=== PATIENT | female | born 1965 | race Caucasian/White ===

== ENCOUNTER 2017-12-07 16:10 | Observation (INO) | payer OTHER, SELFPAY ==
[2017-12-07] VITALS (11 sets, daily range): BP systolic 106–130; BP diastolic 57–78; PULSE 83–96; RESP 16–22; TEMP 36.8–37.1; O2SAT 93–98; BMI 39.2; BMI 39.3; BMI 38.8
--- NOTE | 2017-12-07 16:29 | RAD_ITS ---
STUDY: X-RAY CHEST REASON FOR EXAM: Female, 52 years old. Chest pain. TECHNIQUE: Portable frontal. COMPARISON: April 23, 2015 FINDINGS: There is no new focal consolidation. Normal size heart. Normal mediastinum and silke. Normal visualized pulmonary arteries. Normal visualized aortic arch and descending thoracic aorta. Normal visualized thoracic spine. Normal visualized ribs, clavicles, and shoulders. There is no demonstrated abnormality of the visualized soft tissue structures of the upper abdomen. RAD/Chest 1 View (Portable) IMPRESSION: No acute cardiopulmonary process. Electronically Signed: Sofiya Valladares MD at 17:14 EDT Tel , Service support ,
--- NOTE | 2017-12-07 16:29 | EKG12_ITS ---
Test Reason : CP Blood Pressure : / mmHG Vent. Rate : 094 BPM Atrial Rate : 094 BPM P-R Int : 136 ms QRS Dur : 090 ms QT Int : 342 ms P-R-T Axes : -01 011 100 degrees QTc Int : 427 ms Normal sinus rhythm T wave abnormality, consider lateral ischemia Abnormal ECG Confirmed by JUANA POTTER, LOC ([id number]), assistant production editor LUIS JACKSON ([id number]) on 12/08/2017 5:04:27 PM Referred By: Confirmed By:LOC ARIAS MD
--- NOTE | 2017-12-07 16:50 | ED.VISSUMM ---
- ER Visit Summary Date of Service: 12/07/17 Chief Complaint: Chest pain History of Present Illness: The patient is a 52 F with chest pain intermittent since yesterday. She has chest pain, shortness of breath, nausea. She denies diaphoresis. She states at worst it is 8 out of 10, currently 0 out of 10. She has a history of a previous bypass surgery 2016. History of high cholesterol. She takes aspirin daily. She is a smoker. Physical Examination: Vitals are stable. Patient is afebrile. Alert no acute distress. HEENT exam is unremarkable. Neck is supple. Lungs are clear and equal bilaterally. Heart is regular rate and rhythm. Abdomen is soft nontender nondistended. Extremities are unremarkable. Skin is warm and dry. No focal neurologic deficit. Remainder of exam is unremarkable. Emergency Department Course and Treatment: Patient is given aspirin. EKG is sinus rate of 94 with lateral T wave inversion. Chest x-ray shows no acute process. CBC, chemistries unremarkable other than glucose 144. Troponin is negative. She is pain-free in the emergency room. Will discuss with hospitalist for observation. Disposition: Observation Impression: Chest pain This note was generated with [employer] dictation software. It may contain incorrect words, spelling, and punctuation that were not noted in review of the chart prior to signing ED Disposition - Plan for ED Patient: Chief Complaint: Chest Pain Referrals: Viri Rowland MD [Primary Care Provider] -
[2017-12-07 17:10] LABS: Absolute Neutrophil Count 4.5 X10^3/uL (2.0-7.7); Basophil# 0.01 X10^3/uL; Basophil% 0.1 % (0-1); Eosinophil# 0.17 X10^3/uL; Eosinophils% 2.3 % (0-5); Hematocrit 41.6 % (37-47); Hemoglobin 13.4 g/dl (12.0-15.0); Lymphocyte % 30.5 % (19-41); Mean Corp Hgb Conc 32.2 g/gl (32-36); Mean Corpuscular Volume 93.1 fL (81-99); Mean Platelet Vol. 10.5 fl (6.2-12.0); Monocyte# 0.51 X10^3/uL; Monocyte% 6.8 % (0-10); Neutrophil # 4.53 X10^3/uL (2.7-7.7); Neutrophil % 60.2 % (47-70); Platelet Count 235 K/mm3 (150-450); RBC Distribution Width CV 14.6 % (11.6-14.6); RBC Distribution Width SD 49.5 fl (35.1-43.9); Red Blood Count 4.47 M/mm3 (4.2-5.4); White Blood Count 7.5 K/mm3 (4.4-11.0)
[2017-12-07] MEDS: Aspirin 325 MG Tablet PO (17:21)
[2017-12-07 17:26] LABS: Anion Gap 7 (5-15); BUN 10 mg/dL (7-18); BUN/Creat Ratio 11.3 RATIO (10-20); Calcium,Total 9.1 mg/dL (8.5-10.1); Chloride 107 mmol/L (98-107); Creatinine, Serum 0.88 mg/dL (0.55-1.02); EST Glomerular Filtration Rate 72 mL/min (>60); Est Glom Filt Rate - Afr Amer 87 mL/min (>60); Glucose 144 mg/dL (74-106); POSITIVE COUNT NO; POSITIVE DIFFERENTIAL NO; POSITIVE MORPHOLOGY NO; Sodium Level 140 mmol/L (136-145)
--- NOTE | 2017-12-07 18:11 | PCM.HP.STD ---
Problem List (1) Aortocoronary bypass status Status: Chronic Comment: CABG x5 - ARM[place] to :AD, SVG to 1stmarginal branch of the CX, SVG to distal CX, SVG to PDA, and SVG to posterolateral RCA 10/01/15 (2) Atherosclerotic heart disease of [place] coronary artery without angina pectoris Status: Chronic Comment: CABG x5 - [place] to :AD, SVG to 1stmarginal branch of the CX, SVG to distal CX, SVG to PDA, and SVG to posterolateral RCA 10/01/15 (3) Tobacco abuse Status: Chronic (4) Hyperlipidemia Status: Chronic History of Present Illness Date of Admission: 12/07/17 Chief Complaint: Chest pain. The patient is a 52 year old F with past medical history as mentioned above presented to the emergency room because of chest pain. Her symptoms started last night after she had an episode of vomiting, started having chest pain, located at the right upper chest, described as pressure like pain, 7 out of 10 in severity, intermittent since last night, radiates to her right shoulder, associated with mild shortness of breath and nausea and without aggravating or relieving factors. It has been intermittent since last night and she mentioned that this pain similar to the pain that she had 2 years ago that ended up with CABG x5. She mentioned that years ago, she had this chest pain on the right side, had stress test that was unremarkable. She continued to have this right upper chest pain for which cardiac CT was done and eventually, she underwent cardiac catheterization and found to have triple-vessel disease and she underwent CABG. Since that time, she has not been following up with cardiology and she has been only taking aspirin. In the emergency department, her vital signs were stable. Her routine blood work was unremarkable except for blood sugar of 144. Her EKG revealed normal sinus rhythm with septal T wave inversion in lateral chest leads, no acute ST elevation. Troponin is negative. Chest x-ray showed no acute findings. She is being admitted for chest pain for evaluation. Past Medical History Past Medical History (Chronic Problems): Chronic Problems (Last Updated 11/23/17 @ 17:19 by Farzana Wray) Aortocoronary bypass status (Chronic ~10/01/15) CABG x5 - [place] to :AD, SVG to 1stmarginal branch of the CX, SVG to distal CX, SVG to PDA, and SVG to posterolateral RCA 10/01/15 Atherosclerotic heart disease of [place] coronary artery without angina pectoris (Chronic) CABG x5 - [place] to :AD, SVG to 1stmarginal branch of the CX, SVG to distal CX, SVG to PDA, and SVG to posterolateral RCA 10/01/15 Tobacco abuse (Chronic) Hyperlipidemia (Chronic) History of [place] (myocardial infarction) (Chronic) Medical History: Medical History (Last Updated 11/23/17 @ 17:19 by Farzana Wray) Atherosclerotic heart disease of [place] coronary artery without angina pectoris (Chronic) I25.10 CABG x5 - [place] to :AD, SVG to 1stmarginal branch of the CX, SVG to distal CX, SVG to PDA, and SVG to posterolateral RCA 10/01/15 Tobacco abuse (Chronic) Z72.0 Hyperlipidemia (Chronic) E78.5 History of [place] (myocardial infarction) (Chronic) I25.2 Allergies Penicillins Allergy (Verified 12/07/17 16:11) Hives Home Medications: Ambulatory Orders Medication Instructions Recorded Aspirin [Aspirin, Baby] 81 mg PO QHS 01/05/17 Evolocumab [Repatha Sureclick] 140 mg SQ Q14D 12/07/17 Surgical History: Surgical History (Last Updated 11/23/17 @ 17:21 by Farzana Wray) Aortocoronary bypass status (Chronic) Onset Date: ~10/01/15 Z95.1 CABG x5 - [place] to :AD, SVG to 1stmarginal branch of the CX, SVG to distal CX, SVG to PDA, and SVG to posterolateral RCA 10/01/15 H/O arthroscopy of right knee Z98.890 H/O section Z98.891 History of laminectomy Z98.890 Surgical History: - - The patient is undergone lumbar laminectomy on 2 occasions in the past. section was performed ?2 in the past. She is undergone right knee arthroscopy on 3 occasions. 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 Patient's mother at age of 83 with a history of dementia and cerebrovascular accident. Paternal Family History: Family History (Last Updated 11/23/17 @ 17:22 by Farzana Wray) Father CAD (coronary artery disease) Mother CVA (cerebral vascular accident) History Items: - - not Pertinent to presenting complaint Review of Systems Constitutional: Denies: Anorexia, Chills, Fever, Weakness Eyes: Denies: Blurred vision, Double vision, Drainage, Redness HEENT: Denies: Difficulty Hearing, Ear Pain, Eye Pain, Nasal Congestion, Sore Throat Cardiovascular: Reports: Chest Pain, Chest Pressure. Denies: Edema, Heaviness, Light Headedness, Palpitations, Syncope Respiratory: Reports: Shortness of Breath, Shortness of breath upon exertion. Denies: Cough, Pleuritic Pain, Sputum production, Wheezing Gastrointestinal: Reports: Nausea, Vomiting. Denies: Abdominal Pain, Constipation, Diarrhea Genitourinary: Denies: Dysuria, Frequency, Hematuria Musculoskeletal: Denies: Arm Pain, Back Pain, Foot Pain Skin: Denies: Dryness, Rash Neurological: Denies: Balance problems, Headaches, Incoordination, Numbness Psychiatric: Denies: Anxiety, Depression Endocrine: Denies: Change in Body Habitus, Polydipsia VTE Information - Inpt Only VTE Present on Admission: No VTE Mechan Device Prophylaxis: None VTE Pharm Prophylaxis ordered?: Yes - Physical Exam General: Alert, Oriented x3, Cooperative, No apparent distress HEENT: Atraumatic, PERRLA, EOMI, Normocephalic Oral: Moist Mucosa, No Gingival or Mucosal Lesions/ Ulcerations Neck: Supple, No JVD, Negative Carotid Bruits, Trachea Midline, Thyroid Normal Size and Texture Lungs: Clear to auscultation, No rhonchi, No wheeze, No rales, Diminished Cardiovascular: Regular rate, Regular Rhythm, Normal S1, Normal S2, No murmurs, PMI Normal Abdomen: Bowel Sounds Present, Soft, Non Tender, Non-Distended, No Hepato-splenomegaly Extremities: No clubbing, No cyanosis, No edema Skin: No rashes, No breakdown Lymphatic: No Cervical, Supraclavicular, or Inguinal Adenopathy Neurological: Cranial nerves II-XII grossly intact, Motor Exam 5/5 strength throughout Psych/Mental Status: Normal Affect, Appropriate, Alert and oriented to time, place, person, mood and affect Vital Signs Temp Pulse Resp BP Pulse Ox 98.5 F 91 22 H 124/78 H 95 12/07/17 16:11 12/07/17 18:07 12/07/17 18:07 12/07/17 18:07 12/07/17 18:07 Oxygen Flow Rate (L/min) 2 Oxygen Delivery Method Nasal Cannula Weight: 228 lb 13.437 oz Body Mass Index (BMI) 39.2 Laboratory Tests Past 24 Hrs 12/07/17 12/07/17 16:25 16:25 WBC 7.5 RBC 4.47 Hgb 13.4 Hct 41.6 MCV 93.1 MCH 30.0 MCHC 32.2 RDW 14.6 RDW Differential 49.5 H Plt Count 235 MPV 10.5 Immature Gran % (Auto) 0.100 Neut % (Auto) 60.2 Lymph % (Auto) 30.5 [place] % (Auto) 6.8 Eos % (Auto) 2.3 Baso % (Auto) 0.1 Absolute Neuts (auto) 4.5 Absolute Lymphs (auto) 2.30 Total Counted Not Reportable Sodium 140 Potassium 4.0 Chloride 107 Carbon Dioxide 26.0 Anion Gap 7 BUN 10 Creatinine 0.88 Est GFR (MDRD) Af Amer 87 Est GFR (MDRD) Non-Af 72 BUN/Creatinine Ratio 11.3 Glucose 144 H Calcium 9.1 Troponin I < 0.015 Clinical Impression(s) from Imaging Studies Chest X-Ray 12/07/17 16:29 IMPRESSION: No acute cardiopulmonary process. Electronically Signed: Sofiya Valladares MD at 17:14 EDT Tel , Service support , Assessment/Plan This is a 50 years old female patient presented to the ER because of chest pain and she is being admitted for evaluation. #1 chest pain: Atypical. Risk factors are history of CAD status post CABG, hyperlipidemia and smoking. She had a clinical presentation for multivessel CAD back in 2016 and ended up with CABG ?5. At that time, she had similar right sided upper chest pain. At this time, EKG revealed inverted T-wave in lateral chest leads, no acute ST elevation. Troponin is negative. Chest x-ray showed no acute findings. Patient has been taking only aspirin, but not following up with cardiology. Plan: Admit to PCU for observation, cardiac monitoring, serial cardiac enzymes, repeat EKG tomorrow morning, continue aspirin, start metoprolol and lisinopril, start Lipitor, cardiology consult, fasting lipid profile. #2 CAD status post CABG: This was back in 2016, has been only on aspirin. She is not following up with cardiology. Plan as above to start beta-blockers, RIMMA inhibitors, statins, fasting lipid profile, cardiology consult. #3 hyperlipidemia: She has been on Evolocumab injections every 2 weeks. Plan to start him on Lipitor, check lipid profile in the morning. #4 tobacco abuse. #5 DVT prophylaxis: Subcu Lovenox. This note was generated with [employer]r dictation software. It may contain incorrect words, spelling, and punctuation that were not noted in checking the note before signing. Code Visit OBSV E&M: 74204 Initial observation care L3
--- NOTE | 2017-12-07 18:18 | HP.PCM_ITS ---
Problem List (1) Aortocoronary bypass status Status: Chronic Comment: CABG x5 - [place] to :AD, SVG to 1stmarginal branch of the CX, SVG to distal CX, SVG to PDA, and SVG to posterolateral RCA 10/01/15 (2) Atherosclerotic heart disease of [place] coronary artery without angina pectoris Status: Chronic Comment: CABG x5 - [place] to :AD, SVG to 1stmarginal branch of the CX, SVG to distal CX, SVG to PDA, and SVG to posterolateral RCA 10/01/15 (3) Tobacco abuse Status: Chronic (4) Hyperlipidemia Status: Chronic History of Present Illness Date of Admission: 12/07/17 Chief Complaint: Chest pain. The patient is a 52 year old F with past medical history as mentioned above presented to the emergency room because of chest pain. Her symptoms started last night after she had an episode of vomiting, started having chest pain, located at the right upper chest, described as pressure like pain, 7 out of 10 in severity, intermittent since last night, radiates to her right shoulder, associated with mild shortness of breath and nausea and without aggravating or relieving factors. It has been intermittent since last night and she mentioned that this pain similar to the pain that she had 2 years ago that ended up with CABG x5. She mentioned that years ago, she had this chest pain on the right side, had stress test that was unremarkable. She continued to have this right upper chest pain for which cardiac CT was done and eventually, she underwent cardiac catheterization and found to have triple-vessel disease and she underwent CABG. Since that time, she has not been following up with cardiology and she has been only taking aspirin. In the emergency department, her vital signs were stable. Her routine blood work was unremarkable except for blood sugar of 144. Her EKG revealed normal sinus rhythm with septal T wave inversion in lateral chest leads, no acute ST elevation. Troponin is negative. Chest x-ray showed no acute findings. She is being admitted for chest pain for evaluation. Past Medical History Past Medical History (Chronic Problems): Chronic Problems (Last Updated 11/23/17 @ 17:19 by Farzana Wray) Aortocoronary bypass status (Chronic ~10/01/15) CABG x5 - [place] to :AD, SVG to 1stmarginal branch of the CX, SVG to distal CX, SVG to PDA, and SVG to posterolateral RCA 10/01/15 Atherosclerotic heart disease of [place] coronary artery without angina pectoris (Chronic) CABG x5 - ARM[place] to :AD, SVG to 1stmarginal branch of the CX, SVG to distal CX, SVG to PDA, and SVG to posterolateral RCA 10/01/15 Tobacco abuse (Chronic) Hyperlipidemia (Chronic) History of [place] (myocardial infarction) (Chronic) Medical History: Medical History (Last Updated 11/23/17 @ 17:19 by Farzana Wray) Atherosclerotic heart disease of [place] coronary artery without angina pectoris (Chronic) I25.10 CABG x5 - [place] to :AD, SVG to 1stmarginal branch of the CX, SVG to distal CX, SVG to PDA, and SVG to posterolateral RCA 10/01/15 Tobacco abuse (Chronic) Z72.0 Hyperlipidemia (Chronic) E78.5 History of [place] (myocardial infarction) (Chronic) I25.2 Allergies Penicillins Allergy (Verified 12/07/17 16:11) Hives Home Medications: Ambulatory Orders Medication Instructions Recorded Aspirin [Aspirin, Baby] 81 mg PO QHS 01/05/17 Evolocumab [Repatha Sureclick] 140 mg SQ Q14D 12/07/17 Surgical History: Surgical History (Last Updated 11/23/17 @ 17:21 by Farzana Wray) Aortocoronary bypass status (Chronic) Onset Date: ~10/01/15 Z95.1 CABG x5 - [place] to :AD, SVG to 1stmarginal branch of the CX, SVG to distal CX, SVG to PDA, and SVG to posterolateral RCA 10/01/15 H/O arthroscopy of right knee Z98.890 H/O section Z98.891 History of laminectomy Z98.890 Surgical History: - - The patient is undergone lumbar laminectomy on 2 occasions in the past. section was performed ?2 in the past. She is undergone right knee arthroscopy on 3 occasions. 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 Patient's mother at age of 83 with a history of dementia and cerebrovascular accident. Paternal Family History: Family History (Last Updated 11/23/17 @ 17:22 by Farzana Wray) Father CAD (coronary artery disease) Mother CVA (cerebral vascular accident) History Items: - - not Pertinent to presenting complaint Review of Systems Constitutional: Denies: Anorexia, Chills, Fever, Weakness Eyes: Denies: Blurred vision, Double vision, Drainage, Redness HEENT: Denies: Difficulty Hearing, Ear Pain, Eye Pain, Nasal Congestion, Sore Throat Cardiovascular: Reports: Chest Pain, Chest Pressure. Denies: Edema, Heaviness, Light Headedness, Palpitations, Syncope Respiratory: Reports: Shortness of Breath, Shortness of breath upon exertion. Denies: Cough, Pleuritic Pain, Sputum production, Wheezing Gastrointestinal: Reports: Nausea, Vomiting. Denies: Abdominal Pain, Constipation, Diarrhea Genitourinary: Denies: Dysuria, Frequency, Hematuria Musculoskeletal: Denies: Arm Pain, Back Pain, Foot Pain Skin: Denies: Dryness, Rash Neurological: Denies: Balance problems, Headaches, Incoordination, Numbness Psychiatric: Denies: Anxiety, Depression Endocrine: Denies: Change in Body Habitus, Polydipsia VTE Information - Inpt Only VTE Present on Admission: No VTE Mechan Device Prophylaxis: None VTE Pharm Prophylaxis ordered?: Yes - Physical Exam General: Alert, Oriented x3, Cooperative, No apparent distress HEENT: Atraumatic, PERRLA, EOMI, Normocephalic Oral: Moist Mucosa, No Gingival or Mucosal Lesions/ Ulcerations Neck: Supple, No JVD, Negative Carotid Bruits, Trachea Midline, Thyroid Normal Size and Texture Lungs: Clear to auscultation, No rhonchi, No wheeze, No rales, Diminished Cardiovascular: Regular rate, Regular Rhythm, Normal S1, Normal S2, No murmurs, PMI Normal Abdomen: Bowel Sounds Present, Soft, Non Tender, Non-Distended, No Hepato- splenomegaly Extremities: No clubbing, No cyanosis, No edema Skin: No rashes, No breakdown Lymphatic: No Cervical, Supraclavicular, or Inguinal Adenopathy Neurological: Cranial nerves II-XII grossly intact, Motor Exam 5/5 strength throughout Psych/Mental Status: Normal Affect, Appropriate, Alert and oriented to time, place, person, mood and affect Vital Signs Temp Pulse Resp BP Pulse Ox 98.5 F 91 22 H 124/78 H 95 12/07/17 16:11 12/07/17 18:07 12/07/17 18:07 12/07/17 18:07 12/07/17 18:07 Oxygen Flow Rate (L/min) 2 Oxygen Delivery Method Nasal Cannula Weight: 228 lb 13.437 oz Body Mass Index (BMI) 39.2 Laboratory Tests Past 24 Hrs 12/07/17 12/07/17 16:25 16:25 WBC 7.5 RBC 4.47 Hgb 13.4 Hct 41.6 MCV 93.1 MCH 30.0 MCHC 32.2 RDW 14.6 RDW Differential 49.5 H Plt Count 235 MPV 10.5 Immature Gran % (Auto) 0.100 Neut % (Auto) 60.2 Lymph % (Auto) 30.5 [place] % (Auto) 6.8 Eos % (Auto) 2.3 Baso % (Auto) 0.1 Absolute Neuts (auto) 4.5 Absolute Lymphs (auto) 2.30 Total Counted Not Reportable Sodium 140 Potassium 4.0 Chloride 107 Carbon Dioxide 26.0 Anion Gap 7 BUN 10 Creatinine 0.88 Est GFR (MDRD) Af Amer 87 Est GFR (MDRD) Non-Af 72 BUN/Creatinine Ratio 11.3 Glucose 144 H Calcium 9.1 Troponin I < 0.015 Clinical Impression(s) from Imaging Studies Chest X-Ray 12/07/17 16:29 IMPRESSION: No acute cardiopulmonary process. Electronically Signed: Sofiya Valladares MD at 17:14 EDT Tel , Service support , Assessment/Plan This is a 50 years old female patient presented to the ER because of chest pain and she is being admitted for evaluation. #1 chest pain: Atypical. Risk factors are history of CAD status post CABG, hyperlipidemia and smoking. She had a clinical presentation for multivessel CAD back in 2016 and ended up with CABG ?5. At that time, she had similar right sided upper chest pain. At this time, EKG revealed inverted T-wave in lateral chest leads, no acute ST elevation. Troponin is negative. Chest x-ray showed no acute findings. Patient has been taking only aspirin, but not following up with cardiology. Plan: Admit to PCU for observation, cardiac monitoring, serial cardiac enzymes, repeat EKG tomorrow morning, continue aspirin, start metoprolol and lisinopril, start Lipitor, cardiology consult, fasting lipid profile. #2 CAD status post CABG: This was back in 2016, has been only on aspirin. She is not following up with cardiology. Plan as above to start beta-blockers, RIMMA inhibitors, statins, fasting lipid profile, cardiology consult. #3 hyperlipidemia: She has been on Evolocumab injections every 2 weeks. Plan to start him on Lipitor, check lipid profile in the morning. #4 tobacco abuse. #5 DVT prophylaxis: Subcu Lovenox. This note was generated with [employer] dictation software. It may contain incorrect words, spelling, and punctuation that were not noted in checking the note before signing. Code Visit OBSV E&M: 80437 Initial observation care L3
[2017-12-08 03:50] VITALS: BP 128/75; PULSE 85; RESP 20; TEMP 36.7; O2SAT 95
[2017-12-08 04:36] VITALS: PULSE 79
[2017-12-08] MEDS: Aspirin 81 MG TAB.CHEW PO (05:39)
--- NOTE | 2017-12-08 05:55 | EKG12_ITS ---
Test Reason : AM EKG Blood Pressure : / mmHG Vent. Rate : 079 BPM Atrial Rate : 079 BPM P-R Int : 152 ms QRS Dur : 100 ms QT Int : 410 ms P-R-T Axes : -02 017 101 degrees QTc Int : 470 ms Normal sinus rhythm T wave abnormality, consider lateral ischemia Abnormal ECG Confirmed by MIGUEL POTTER, ABDI ([id number]), features editor LUIS JACKSON ([id number]) on 12/10/2017 1:41:40 PM Referred By: SETH Confirmed By:ABDI RIVERA MD
[2017-12-08 06:36] LABS: Hematocrit 41.5 % (37-47); Hemoglobin 13.6 g/dl (12.0-15.0); Mean Corp Hgb Conc 32.8 g/gl (32-36); Mean Corpuscular Hgb 30.6 pg (27.0-32.0); Mean Corpuscular Volume 93.3 fL (81-99); Mean Platelet Vol. 10.6 fl (6.2-12.0); Platelet Count 240 K/mm3 (150-450); RBC Distribution Width CV 14.6 % (11.6-14.6); RBC Distribution Width SD 48.5 fl (35.1-43.9); Red Blood Count 4.45 M/mm3 (4.2-5.4); White Blood Count 7.7 K/mm3 (4.4-11.0)
[2017-12-08 06:39] LABS: Scan Indicated on CBC? Y/N NO
[2017-12-08 06:42] LABS: Prothrombin Time (Protime)PT. 13.4 SECONDS (11.7-14.9)
[2017-12-08 06:43] LABS: Partial Thromboplast Time 33.3 Seconds (24.1-36.2)
[2017-12-08 07:01] LABS: Anion Gap 7 (5-15); BUN 10 mg/dL (7-18); Chloride 105 mmol/L (98-107); Cholesterol 204 mg/dL (200); Creatinine, Serum 0.77 mg/dL (0.55-1.02); EST Glomerular Filtration Rate 84 mL/min (>60); Est Glom Filt Rate - Afr Amer 101 mL/min (>60); Glucose 126 mg/dL (74-106); High Density Lipoprotein 31 mg/dL; Potassium 4.1 mmol/L (3.5-5.1); Sodium Level 137 mmol/L (136-145); Triglycerides 195 mg/dL; Very Low Density Lipoprotein 39 mg/dL (5-40)
[2017-12-08 08:49] VITALS: BP 114/63; PULSE 83; RESP 16; TEMP 36.9; O2SAT 96
--- NOTE | 2017-12-08 08:50 | STRESSREP ---
Stress Test Report Pharmacologic myocardial perfusion stress test. 52-year-old lady with a history of chest pain. Stress protocol: Resting EKG demonstrates normal sinus rhythm with rate of 80 bpm normal intervals and noted resting blood pressure is 146/84 mmHg. 0.4 mg regadenoson was infused per usual protocol followed by rapid intravenous saline flush injection continuous EKG monitoring was performed. The patient maintained sinus rhythm throughout the recording. The maximum heart rate attained was 110 bpm which was 65% maximum predicted heart rate the maximum workload was [address]-T wave changes were noted. Myocardial perfusion protocol. 14.8 mCi of technetium 99m sestamibi was injected at rest. 0.4 mg of regadenoson was infused per usual protocol. At peak infusion 44.8 mCi of technetium 99m sestamibi was injected stress images were obtained stress and rest images were reconstructed and compared in the short axis vertical long and horizontal long axis. Gated images were also obtained pre- Perfusion SPECT analysis: Review of the stress images demonstrate normal uptake of tracer noted in all areas of the myocardium. The resting images similarly demonstrate normal uptake of tracer noted in all areas of the myocardium. No areas of reversibility are noted suggest ischemia and no previous infarct is noted. Gated SPECT analysis: The gated ejection fraction is noted to be 74%. Conclusion: Normal myocardial perfusion stress test with no evidence of ischemia. Preserved ejection fraction.
[2017-12-08 09:23] VITALS: PULSE 85
--- NOTE | 2017-12-08 10:01 | PCM.CONS.C ---
Problem List (1) Chest pain Status: Acute Qualifiers: Chest pain type: chest pain on breathing Qualified Code(s): R07.1 - Chest pain on breathing; R07.81 - Pleurodynia Reason for Consult Date of Consultation: 12/08/17 History of Present Illness: The patient is a 52 year old F with past medical history significant for dyslipidemia, nicotine dependence and coronary artery disease status post coronary artery bypass graft surgery about 2 years ago. She presented to the emergency room with complaints of intermittent right-sided chest pain. This has been happening for the last 2 months or so. Occurs mostly mostly at rest. Last from seconds to maybe half an hour. She describes it as both stabbing and pressure-like. Not related to exertion. It is worsened with deep breathing and coughing. Sometimes it radiates to the right shoulder. No associated shortness of breath. No diaphoresis. No palpitations. According to her, she had right-sided chest pain about 2 years ago as well. She is not sure about the quality of that discomfort though. Workup led to diagnosis of multivessel coronary artery disease resulting in CABG. Patient had an episode of vomiting 2 days ago. According to her, this was unrelated to her right sided chest pain. [] Past Medical History Allergies/Adverse Reactions: Allergies Penicillins Allergy (Verified 12/07/17 16:11) Hives Home Medications: Ambulatory Orders Medication Instructions Recorded Aspirin [Aspirin, Baby] 81 mg PO QHS 01/05/17 Evolocumab [Repatha Sureclick] 140 mg SQ Q14D 12/07/17 Past Medical History (Chronic Problems): Chronic Problems (Last Updated 11/23/17 @ 17:19 by Farzana Wray) Aortocoronary bypass status (Chronic ~10/01/15) CABG x5 - ARM[place] to :AD, SVG to 1stmarginal branch of the CX, SVG to distal CX, SVG to PDA, and SVG to posterolateral RCA 10/01/15 Atherosclerotic heart disease of [place] coronary artery without angina pectoris (Chronic) CABG x5 - ARMSTRONG to :AD, SVG to 1stmarginal branch of the CX, SVG to distal CX, SVG to PDA, and SVG to posterolateral RCA 10/01/15 Tobacco abuse (Chronic) Hyperlipidemia (Chronic) History of MS (myocardial infarction) (Chronic) Surgical History: - - The patient is undergone lumbar laminectomy on 2 occasions in the past. section was performed ?2 in the past. She is undergone right knee arthroscopy on 3 occasions. The patient is a Ab0 Psychiatric History: No pertinent psych hx GIZZARD PULLER History: No pertinent GIZZARD PULLER history - *Family History Maternal Family History: Family History (Last Updated 11/23/17 @ 17:22 by Farzana Wray) Father CAD (coronary artery disease) Mother CVA (cerebral vascular accident) History Items: - - Patient's father at the age of 83 with a history of coronary artery disease. Patient's mother at age of 83 with a history of dementia and cerebrovascular accident. Paternal Family History: Family History (Last Updated 11/23/17 @ 17:22 by Farzana Wray) Father CAD (coronary artery disease) Mother CVA (cerebral vascular accident) History Items: - - not Pertinent to presenting complaint Lives: With Family Smoking Status: Current every day smoker Alcohol: None Drugs: None Review of Systems - Review of Systems General: Denies: Fever, Chills HEENT: Denies: Sore Throat Cardiovascular: Reports: Chest Discomfort at Rest. Denies: Orthopnea, PND, Peripheral Edema Gastrointestinal: Reports: Emesis - One time as noted in HPI. Denies: Abdominal Discomfort, Jaundice, Hematemesis Muscoloskeletal: Reports: - - According to the patient, her post CABG course was complicated with infection of her sternal wound. She was advised sternotomy however she refused Neurological: Denies: History of TIA, History of CVA Hematologic/ Lymphatic: Denies: Easy Brusing, Easy Bleeding Subjectve: Comfortable. No apparent distress Objective: Vital Signs Temp Pulse Resp BP Pulse Ox 98.5 F 85 16 114/63 96 12/08/17 08:49 12/08/17 09:23 12/08/17 08:49 12/08/17 08:49 12/08/17 08:49 Oxygen Delivery Method Room Air Weight: 102.6 kg Body Mass Index (BMI) 38.8 Intake and Output for Last 24 Hours 12/06/17 12/07/17 12/08/17 23:59 23:59 23:59 Intake Total 540 / 540 Balance 540 / 540 General: Healthy Appearing, Awake, Alert, Oriented x 3, Obese HEENT: Atraumatic, Normocephalic Oral: Moist Mucosa Neck: Supple, No JVD Chest Wall: - - Reproducible discomfort with superficial palpation of the right upper chest. Lungs: Clear to auscultation Cardiovascular: Regular Rhythm, Normal S1, Normal S2 Vascular: No Carotid Bruits Abdomen: Bowel Sounds Present, Soft Extremities: No edema Neurological: No Focal Motor or Sensory Deficit Psych/Mental Status: Appropriate 12/07/17 20:22: Troponin I < 0.015 12/07/17 22:54: Troponin I < 0.015 12/08/17 06:00: Sodium 137, Potassium 4.1, Chloride 105, Carbon Dioxide 25.0, Anion Gap 7, BUN 10, Creatinine 0.77, Est GFR (MDRD) Af Amer 101, Est GFR (MDRD) Non-Af 84, BUN/Creatinine Ratio 13.0, Glucose 126 H, Calcium 9.0, Triglycerides 195, Cholesterol 204 H, LDL Cholesterol 134 H, VLDL Cholesterol 39, HDL Cholesterol 31 L 12/08/17 06:00: WBC 7.7, RBC 4.45, Hgb 13.6, Hct 41.5, MCV 93.3, MCH 30.6, MCHC 32.8, RDW 14.6, RDW Differential 48.5 H, Plt Count 240, MPV 10.6 12/08/17 06:00: PT 13.4, INR 1.0, APTT 33.3 Rhythm: Normal sinus rhythm EKG: Sinus rhythm. T-wave inversions in lateral leads. ECHO: Stress Test: Normal LV systolic function. No ischemia. Cardiac Cath: PCI: CT Surgery: Holter monitor: EPS: PPM: CXR: Chest CT Scan: Assessment/Plan . Chest pain. Right-sided. Exacerbated with deep breathing and coughing. Positive reproducibility on palpation. Unlikely cardiac. Negative stress test. Consider musculoskeletal. Give a trial of NSAID. Manage as per internal medicine 2. Coronary artery disease status post CABG. She takes only aspirin at home. She does not have any history of MS in the past. However in view of her skin CAD, I offered to put her on low-dose beta blockers. She does not want to be on any medications except aspirin at present X 3. Nicotine dependence. Counseled to quit 4. Dyslipidemia. Manage as per on commercial green building architect. Patient wants to follow with her own commercial green building architect as outpatient
[2017-12-08] MEDS: Ibuprofen 400 MG Tablet 800 MG PO (10:14)
--- NOTE | 2017-12-08 10:14 | CON.PCM_ITS ---
Problem List (1) Chest pain Status: Acute Qualifiers: Chest pain type: chest pain on breathing Qualified Code(s): R07.1 - Chest pain on breathing; R07.81 - Pleurodynia Reason for Consult Date of Consultation: 12/08/17 History of Present Illness: The patient is a 52 year old F with past medical history significant for dyslipidemia, nicotine dependence and coronary artery disease status post coronary artery bypass graft surgery about 2 years ago. She presented to the emergency room with complaints of intermittent right-sided chest pain. This has been happening for the last 2 months or so. Occurs mostly mostly at rest. Last from seconds to maybe half an hour. She describes it as both stabbing and pressure-like. Not related to exertion. It is worsened with deep breathing and coughing. Sometimes it radiates to the right shoulder. No associated shortness of breath. No diaphoresis. No palpitations. According to her, she had right-sided chest pain about 2 years ago as well. She is not sure about the quality of that discomfort though. Workup led to diagnosis of multivessel coronary artery disease resulting in CABG. Patient had an episode of vomiting 2 days ago. According to her, this was unrelated to her right sided chest pain. [] Past Medical History Allergies/Adverse Reactions: Allergies Penicillins Allergy (Verified 12/07/17 16:11) Hives Home Medications: Ambulatory Orders Medication Instructions Recorded Aspirin [Aspirin, Baby] 81 mg PO QHS 01/05/17 Evolocumab [Repatha Sureclick] 140 mg SQ Q14D 12/07/17 Past Medical History (Chronic Problems): Chronic Problems (Last Updated 11/23/17 @ 17:19 by Farzana Wray) Aortocoronary bypass status (Chronic ~10/01/15) CABG x5 - [place] to :AD, SVG to 1stmarginal branch of the CX, SVG to distal CX, SVG to PDA, and SVG to posterolateral RCA 10/01/15 Atherosclerotic heart disease of [place] coronary artery without angina pectoris (Chronic) CABG x5 - ARM[place] to :AD, SVG to 1stmarginal branch of the CX, SVG to distal CX, SVG to PDA, and SVG to posterolateral RCA 10/01/15 Tobacco abuse (Chronic) Hyperlipidemia (Chronic) History of [place] (myocardial infarction) (Chronic) Surgical History: - - The patient is undergone lumbar laminectomy on 2 occasions in the past. section was performed ?2 in the past. She is undergone right knee arthroscopy on 3 occasions. The patient is a Ab0 Psychiatric History: No pertinent psych hx CASE MANAGEMENT SOCIAL WORKER History: No pertinent CASE MANAGEMENT SOCIAL WORKER history - *Family History Maternal Family History: Family History (Last Updated 11/23/17 @ 17:22 by Farzana Wray) Father CAD (coronary artery disease) Mother CVA (cerebral vascular accident) History Items: - - Patient's father at the age of 83 with a history of coronary artery disease. Patient's mother at age of 83 with a history of dementia and cerebrovascular accident. Paternal Family History: Family History (Last Updated 11/23/17 @ 17:22 by Farzana Wray) Father CAD (coronary artery disease) Mother CVA (cerebral vascular accident) History Items: - - not Pertinent to presenting complaint Lives: With Family Smoking Status: Current every day smoker Alcohol: None Drugs: None Review of Systems - Review of Systems General: Denies: Fever, Chills HEENT: Denies: Sore Throat Cardiovascular: Reports: Chest Discomfort at Rest. Denies: Orthopnea, PND, Peripheral Edema Gastrointestinal: Reports: Emesis - One time as noted in HPI. Denies: Abdominal Discomfort, Jaundice, Hematemesis Muscoloskeletal: Reports: - - According to the patient, her post CABG course was complicated with infection of her sternal wound. She was advised sternotomy however she refused Neurological: Denies: History of TIA, History of CVA Hematologic/ Lymphatic: Denies: Easy Brusing, Easy Bleeding Subjectve: Comfortable. No apparent distress Objective: Vital Signs Temp Pulse Resp BP Pulse Ox 98.5 F 85 16 114/63 96 12/08/17 08:49 12/08/17 09:23 12/08/17 08:49 12/08/17 08:49 12/08/17 08:49 Oxygen Delivery Method Room Air Weight: 102.6 kg Body Mass Index (BMI) 38.8 Intake and Output for Last 24 Hours 12/06/17 12/07/17 12/08/17 23:59 23:59 23:59 Intake Total 540 / 540 Balance 540 / 540 General: Healthy Appearing, Awake, Alert, Oriented x 3, Obese HEENT: Atraumatic, Normocephalic Oral: Moist Mucosa Neck: Supple, No JVD Chest Wall: - - Reproducible discomfort with superficial palpation of the right upper chest. Lungs: Clear to auscultation Cardiovascular: Regular Rhythm, Normal S1, Normal S2 Vascular: No Carotid Bruits Abdomen: Bowel Sounds Present, Soft Extremities: No edema Neurological: No Focal Motor or Sensory Deficit Psych/Mental Status: Appropriate 12/07/17 20:22: Troponin I < 0.015 12/07/17 22:54: Troponin I < 0.015 12/08/17 06:00: Sodium 137, Potassium 4.1, Chloride 105, Carbon Dioxide 25.0, Anion Gap 7, BUN 10, Creatinine 0.77, Est GFR (MDRD) Af Amer 101, Est GFR (MDRD ) Non-Af 84, BUN/Creatinine Ratio 13.0, Glucose 126 H, Calcium 9.0, Triglycerides 195, Cholesterol 204 H, LDL Cholesterol 134 H, VLDL Cholesterol 39 , HDL Cholesterol 31 L 12/08/17 06:00: WBC 7.7, RBC 4.45, Hgb 13.6, Hct 41.5, MCV 93.3, MCH 30.6, MCHC 32.8, RDW 14.6, RDW Differential 48.5 H, Plt Count 240, MPV 10.6 12/08/17 06:00: PT 13.4, INR 1.0, APTT 33.3 Rhythm: Normal sinus rhythm EKG: Sinus rhythm. T-wave inversions in lateral leads. ECHO: Stress Test: Normal LV systolic function. No ischemia. Cardiac Cath: PCI: CT Surgery: Holter monitor: EPS: PPM: CXR: Chest CT Scan: Assessment/Plan . Chest pain. Right-sided. Exacerbated with deep breathing and coughing. Positive reproducibility on palpation. Unlikely cardiac. Negative stress test. Consider musculoskeletal. Give a trial of NSAID. Manage as per internal medicine 2. Coronary artery disease status post CABG. She takes only aspirin at home. She does not have any history of [place] in the past. However in view of her skin CAD, I offered to put her on low-dose beta blockers. She does not want to be on any medications except aspirin at present X 3. Nicotine dependence. Counseled to quit 4. Dyslipidemia. Manage as per on seat mender. Patient wants to follow with her own seat mender as outpatient
--- NOTE | 2017-12-08 11:31 | PCM.DC ---
- Discharge Diagnoses Current Active Problems: Current Active and Chronic Problems (Last Updated 11/23/17 @ 17:19 by Farzana Wray) Chest pain (Acute) You will use the following diet at home:: Cardiac Discharge Activity: Return to Normal Activity Call your doctor if you observe: Shortness of breath, Dizziness, Fainting spells, Chest pain, Increased palpitations (irregular heartbeat) Allergies/Adverse Reactions: Allergies Penicillins Allergy (Verified 12/07/17 16:11) Hives Medications to take at Discharge Aspirin [Aspirin, Baby] 81 mg PO QHS 01/05/17 Evolocumab [Repatha Sureclick] 140 mg SQ Q14D 12/07/17 Nitroglycerin [Nitrostat] 0.4 mg SUBLINGUAL Q5M PRN #10 tab 12/08/17 The following prescriptions were given: Nitroglycerin [Nitrostat] 0.4 mg SUBLINGUAL Q5M PRN #10 tab PRN Reason: Chest Pain Primary Care Physician: Viri Rowland MD [Primary Care Provider] - Please follow up with your Primary Care Physician in: 1 Week Please Follow Up With: Dr. Casas - Cardiology When: 1-2 Weeks Proposed Discharge Date: 12/08/17
--- NOTE | 2017-12-08 11:35 | DCINST_ITS ---
- Discharge Diagnoses Current Active Problems: Current Active and Chronic Problems (Last Updated 11/23/17 @ 17:19 by Farzana Wray) Chest pain (Acute) You will use the following diet at home:: Cardiac Discharge Activity: Return to Normal Activity Call your doctor if you observe: Shortness of breath, Dizziness, Fainting spells , Chest pain, Increased palpitations (irregular heartbeat) Allergies/Adverse Reactions: Allergies Penicillins Allergy (Verified 12/07/17 16:11) Hives Medications to take at Discharge Aspirin [Aspirin, Baby] 81 mg PO QHS 01/05/17 Evolocumab [Repatha Sureclick] 140 mg SQ Q14D 12/07/17 Nitroglycerin [Nitrostat] 0.4 mg SUBLINGUAL Q5M PRN #10 tab 12/08/17 The following prescriptions were given: Nitroglycerin [Nitrostat] 0.4 mg SUBLINGUAL Q5M PRN #10 tab PRN Reason: Chest Pain Primary Care Physician: Viri Rowland MD [Primary Care Provider] - Please follow up with your Primary Care Physician in: 1 Week Please Follow Up With: Dr. Casas - Cardiology When: 1-2 Weeks Proposed Discharge Date: 12/08/17
--- NOTE | 2017-12-08 11:39 | PCM.DC.SUM ---
<Rosario Patton - Last Filed: 12/08/17 11:45> Discharge Date and Diagnosis Date of Admission: 12/07/17 Date of Discharge: 12/08/17 - Primary Discharge Diagnosis Active and Suspected Problems (Last Updated 11/23/17 @ 17:19 by Farzana Wray) 1. Musculoskeletal chest pain - Secondary Discharge Diagnosis Chronic Problems (Last Updated 11/23/17 @ 17:19 by Farzana Wray) Aortocoronary bypass status (Chronic ~10/01/15) CABG x5 - [place] to :AD, SVG to 1stmarginal branch of the CX, SVG to distal CX, SVG to PDA, and SVG to posterolateral RCA 10/01/15 Atherosclerotic heart disease of [place] coronary artery without angina pectoris (Chronic) CABG x5 - ARMSTRONG to :AD, SVG to 1stmarginal branch of the CX, SVG to distal CX, SVG to PDA, and SVG to posterolateral RCA 10/01/15 Tobacco abuse (Chronic) Hyperlipidemia (Chronic) History of ME (myocardial infarction) (Chronic) Hospital Course and Treatment Imaging Results: Diagnostic Data Chest X-Ray 12/07/17 16:29 IMPRESSION: No acute cardiopulmonary process. Electronically Signed: Sofiya Valladares MD at 17:14 EDT Tel , Service support , Dr. Ramírez- Cardiology Operations: None Procedures: Stress test Summary of Care Provided: The patient is a 52 year old F admitted to 12/07/2017 due to chest pain. She has a past medical history of CABG ?5 in 2016, hyperlipidemia, tobacco dependence. EKG without ST changes. Troponin negative. Chest x-ray without acute findings. Patient underwent nuclear stress test which was negative for ischemia. Patient was evaluated by cardiology. Patient has a history of noncompliance. She does not wish to take recommended medication including beta-anais. She does not follow-up with cardiology as recommended. 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 She continues to use tobacco daily. Pain is reproducible on the right side of chest. She was given Motrin and expressed resolve of chest pain. ACS ruled out. Tobacco cessation was strongly encouraged. Recommend follow-up with primary care physician in 1 week and cardiology in 1-2 weeks. General: Alert, Oriented x3, Cooperative, No apparent distress HEENT: Atraumatic, PERRLA, EOMI, Normocephalic Oral: Moist Mucosa Neck: Supple, No JVD, Negative Carotid Bruits, Trachea Midline, Thyroid Normal Size and Texture Lungs: Clear to auscultation, Diminished Cardiovascular: Regular rate, Regular Rhythm, Normal S1, Normal S2, No murmurs Abdomen: Bowel Sounds Present, Soft, Non Tender, Non-Distended, No Hepato-splenomegaly Extremities: No clubbing, No cyanosis, No edema Skin: No rashes, No breakdown Lymphatic: No Cervical, Supraclavicular, or Inguinal Adenopathy Neurological: Cranial nerves II-XII grossly intact, Motor Exam 5/5 strength throughout Psych/Mental Status: Normal Affect, Appropriate Patient seen exam prior to discharge. Physical assessment as noted above. Patient is stable for discharge home with the follow-up recommendations as noted above. This patient was seen by STEFAN De La Cruz under the supervision of Dr. Root. Discharge Diet: Low fat/ Low Cholesterol Discharge Activity: Return to Normal Activity Call your doctor if you observe: Shortness of breath, Dizziness, Fainting spells, Chest pain, Increased palpitations (irregular heartbeat) Home Medications: Medications to take at Discharge Aspirin [Aspirin, Baby] 81 mg PO QHS 01/05/17 Evolocumab [Repatha Sureclick] 140 mg SQ Q14D 12/07/17 Nitroglycerin [Nitrostat] 0.4 mg SUBLINGUAL Q5M PRN #10 tab 12/08/17 Following Prescrptions Were Given to Patient: Nitroglycerin [Nitrostat] 0.4 mg SUBLINGUAL Q5M PRN #10 tab PRN Reason: Chest Pain Primary Care Physician: Viri Rowland MD [Primary Care Provider] - Please follow up with your Primary Care Physician in: 1 Week Please Follow Up With: Dr. Casas - Cardiology When: 1-2 Weeks Disposition: Home Minutes spent on discharge:: 35 Patient Condition:: Stable Medical Necessity - Tobacco Use Smoking Status: Current every day smoker Meaningful Use Info Meaningful Use Diagnoses (Choose all that apply): None applicable <Barney Root - Last Filed: 12/08/17 17:14> Discharge Date and Diagnosis - Secondary Discharge Diagnosis Chronic Problems (Last Updated 11/23/17 @ 17:19 by Farzana Wray) Aortocoronary bypass status (Chronic ~10/01/15) CABG x5 - [place] to :AD, SVG to 1stmarginal branch of the CX, SVG to distal CX, SVG to PDA, and SVG to posterolateral RCA 10/01/15 Atherosclerotic heart disease of [place] coronary artery without angina pectoris (Chronic) CABG x5 - ARMSTRONG to :AD, SVG to 1stmarginal branch of the CX, SVG to distal CX, SVG to PDA, and SVG to posterolateral RCA 10/01/15 Tobacco abuse (Chronic) Hyperlipidemia (Chronic) History of [place] (myocardial infarction) (Chronic) Hospital Course and Treatment Summary of Care Provided: This patient was seen in conjunction with Rosario DOWD. I have independently interviewed and examined the patient and reviewed pertinent history, examination findings, laboratory and plan of management. I have reviewed the note and agree with the documented findings with the few additional points. In brief, patient is admitted for atypical chest pain most probably secondary to musculoskeletal pain. Patient had EKG which did not show acute change. Troponin negative. Patient had a stress test done which was negative for acute myocardial ischemia I have discussed my assessment with Rosario DOWD and orders have been reviewed. [] Code Visit OBSV E&M: 15843 Observation care discharge
--- NOTE | 2017-12-08 11:45 | DS.PCM_ITS ---
<Rosario Patton - Last Filed: 12/08/17 11:45> Discharge Date and Diagnosis Date of Admission: 12/07/17 Date of Discharge: 12/08/17 - Primary Discharge Diagnosis Active and Suspected Problems (Last Updated 11/23/17 @ 17:19 by Farzana Wray ) 1. 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 Electronically Signed: Sofiya Valladares MD at 17:14 EDT Tel , Service support , Dr. Ramírez- Cardiology Operations: None Procedures: Stress test Summary of Care Provided: The patient is a 52 year old F admitted to 12/07/2017 due to chest pain. She has a past medical history of CABG ?5 in 2016, hyperlipidemia, tobacco dependence. EKG without ST changes. Troponin negative. Chest x-ray without acute findings. Patient underwent nuclear stress test which was negative for ischemia. Patient was evaluated by cardiology. Patient has a history of noncompliance. She does not wish to take recommended medication including beta- anais. She does not follow-up with cardiology as recommended. Patient's senior cost analyst is Dr. Casas in [place]. She continues to use tobacco daily. Pain is reproducible on the right side of chest. She was given Motrin and expressed resolve of chest pain. ACS ruled out. Tobacco cessation was strongly encouraged. Recommend follow-up with primary care physician in 1 week and cardiology in 1-2 weeks. General: Alert, Oriented x3, Cooperative, No apparent distress HEENT: Atraumatic, PERRLA, EOMI, Normocephalic Oral: Moist Mucosa Neck: Supple, No JVD, Negative Carotid Bruits, Trachea Midline, Thyroid Normal Size and Texture Lungs: Clear to auscultation, Diminished Cardiovascular: Regular rate, Regular Rhythm, Normal S1, Normal S2, No murmurs Abdomen: Bowel Sounds Present, Soft, Non Tender, Non-Distended, No Hepato- splenomegaly Extremities: No clubbing, No cyanosis, No edema Skin: No rashes, No breakdown Lymphatic: No Cervical, Supraclavicular, or Inguinal Adenopathy Neurological: Cranial nerves II-XII grossly intact, Motor Exam 5/5 strength throughout Psych/Mental Status: Normal Affect, Appropriate Patient seen exam prior to discharge. Physical assessment as noted above. Patient is stable for discharge home with the follow-up recommendations as noted above. This patient was seen by STEFAN De La Cruz under the supervision of Dr. Root. Discharge Diet: Low fat/ Low Cholesterol Discharge Activity: Return to Normal Activity Call your doctor if you observe: Shortness of breath, Dizziness, Fainting spells , Chest pain, Increased palpitations (irregular heartbeat) Home Medications: Medications to take at Discharge Aspirin [Aspirin, Baby] 81 mg PO QHS 01/05/17 Evolocumab [Repatha Sureclick] 140 mg SQ Q14D 12/07/17 Nitroglycerin [Nitrostat] 0.4 mg SUBLINGUAL Q5M PRN #10 tab 12/08/17 Following Prescrptions Were Given to Patient: Nitroglycerin [Nitrostat] 0.4 mg SUBLINGUAL Q5M PRN #10 tab PRN Reason: Chest Pain Primary Care Physician: Viri Rowland MD [Primary Care Provider] - Please follow up with your Primary Care Physician in: 1 Week Please Follow Up With: Dr. Casas - Cardiology When: 1-2 Weeks Disposition: Home Minutes spent on discharge:: 35 Patient Condition:: Stable Medical Necessity - Tobacco Use Smoking Status: Current every day smoker Meaningful Use Info Meaningful Use Diagnoses (Choose all that apply): None applicable <Barney Root - Last Filed: 12/08/17 17:14> Discharge Date and Diagnosis - Secondary Discharge Diagnosis Chronic Problems (Last Updated 11/23/17 @ 17:19 by Farzana Wray) Aortocoronary bypass status (Chronic ~10/01/15) CABG x5 - ARMSTRONG to :AD, SVG to 1stmarginal branch of the CX, SVG to distal CX, SVG to PDA, and SVG to posterolateral RCA 10/01/15 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 I have independently interviewed and examined the patient and reviewed pertinent history, examination findings, laboratory and plan of management. I have reviewed the note and agree with the documented findings with the few additional points. In brief, patient is admitted for atypical chest pain most probably secondary to musculoskeletal pain. Patient had EKG which did not show acute change. Troponin negative. Patient had a stress test done which was negative for acute myocardial ischemia I have discussed my assessment with Rosario DOWD and orders have been reviewed. [] Code Visit OBSV E&M: 49430 Observation care discharge
== END 2017-12-08 11:32 | disposition home or self-care (01) ==
LOC: ED 16:50 → PCU 18:21
PROVIDERS: Admitting Provider Hospitalist; Emergency Provider Emergency Medicine; Family Provider Family Medicine; PCP Family Medicine; Visit Provider Internal Medicine
DX: R07.89 Other chest pain (principal); R07.1 Chest pain on breathing; R07.81 Pleurodynia; E78.5 Hyperlipidemia, unspecified; I25.10 Atherosclerotic heart disease of native coronary artery without angina pectoris; I25.2 Old myocardial infarction; F17.200 Nicotine dependence, unspecified, uncomplicated; Z95.1 Presence of aortocoronary bypass graft; Z79.82 Long term (current) use of aspirin
CPT/HCPCS: 36415; 71045; 78452; 80048; 80061; 84484; 85025; 85027; 85610; 85730; 93005; 93017; 99218; 99283; 99406; A9500; A4216; G0378; J2785

== ENCOUNTER → 2018-07-13 15:14 | Outpatient (CLI) | payer OTHER, SELFPAY ==
[2018-07-13 17:41] LABS: Absolute Lymphocyte Count 2.32 X10^3/ul (0.83-4.51); Absolute Neutrophil Count 5.1 X10^3/uL (2.0-7.7); Basophil# 0.02 X10^3/uL; Basophil% 0.2 % (0-1); Eosinophil# 0.19 X10^3/uL; Eosinophils% 2.3 % (0-5); Hematocrit 37.9 % (37-47); Hemoglobin 12.4 g/dl (12.0-15.0); Lymphocyte # 2.32 X10^3/ul (4.0); Mean Corp Hgb Conc 32.7 g/gl (32-36); Mean Corpuscular Volume 91.5 fL (81-99); Mean Platelet Vol. 10.4 fl (6.2-12.0); Monocyte# 0.68 X10^3/uL; Monocyte% 8.2 % (0-10); Neutrophil # 5.08 X10^3/uL (2.7-7.7); Neutrophil % 61.2 % (47-70); Platelet Count 250 K/mm3 (150-450); RBC Distribution Width CV 13.2 % (11.6-14.6); RBC Distribution Width SD 43.9 fl (35.1-43.9); Red Blood Count 4.14 M/mm3 (4.2-5.4); White Blood Count 8.3 K/mm3 (4.4-11.0)
[2018-07-13 17:48] LABS: POSITIVE COUNT NO; POSITIVE DIFFERENTIAL NO; POSITIVE MORPHOLOGY NO
[2018-07-13 17:56] LABS: AST(SGOT) 51 U/L (15-37); Alanine Aminotransfer ALT/SGPT 53 U/L (13-56); Albumin, Serum 3.9 g/dL (3.2-5.0); Alkaline Phosphatase 143 U/L (45-117); Anion Gap 9 (5-15); BUN 9 mg/dL (7-18); BUN/Creat Ratio 9.8 RATIO (10-20); Bilirubin, Direct 0.08 mg/dL (0.00-0.30); Calcium,Total 8.8 mg/dL (8.5-10.1); Chloride 105 mmol/L (98-107); Creatinine, Serum 0.92 mg/dL (0.55-1.02); EST Glomerular Filtration Rate 68 mL/min (>60); Est Glom Filt Rate - Afr Amer 82 mL/min (>60); Globulin 4.7 g/dL (2.2-4.2); Glucose 135 mg/dL (74-106); Potassium 3.5 mmol/L (3.5-5.1); Protein, Total 8.6 g/dL (6.4-8.2); Sodium Level 140 mmol/L (136-145)
[2018-07-16 10:37] LABS: HEPATITIS B SURFACE AG Negative (Negative); QNTFERON TB Mitogen Value > 10.00 IU/mL (.); QNTFERON TB Nil Value 0.03 IU/mL (.); QNTFERON TB1+ Ag Value 0.04 IU/mL (.); QNTFERON TB2+ Ag Value 0.03 IU/mL (.)
[2018-07-16 10:41] LABS: Hep B Surface Antibodies Non Reactive (.); Hep C Antibodies 0.1 s/co ratio (0.0-0.9); Hepatitis B Core AB IgM Negative (Negative); QNTIFERON TB Positive Criteria Negative (Negative)
--- OUTSIDE RECORDS SUMMARY | 2018-09-17 14:33 | XMS RPT_ITS ---
:1965 Author Organization [place] Support Name Relationship Address Phone JOSÉ MIGUEL SPENCER Unavailable Unavailable + [employer] Unavailable [address] + [place] [address] CELESTE SARMIENTO Unavailable Unavailable + CELESTE SARMIENTO Unavailable Unavailable + CELESTE SARMIENTO Unavailable Unavailable + JOSÉ MIGUEL SPENCER Unavailable [address] + [place] [id number] [employer] Unavailable . + [place] [address] JOSÉ MIGUEL SPENCER Unavailable [address] + [place] [address] [employer] Unavailable . + [place] [address] JOSÉ MIGUEL SPENCER Unavailable [address] + [place] [address] [employer] Unavailable . + [place] [address] JOSÉ MIGUEL SPENCER Un[address] + [place] [address] [employer] Unavailable . + [place] [address] JOSÉ MIGUEL SPENCER Un[address] + [place] [address] [employer] Unavailable . + [place] [address] JOHANNA LORAINE Unavailable [address] + [place] [address] [employer] Unavailable . + [place] [address] LORAINE SPENCER Unavailable [address] + [place] [address] [facility] Unavailable . + [place] [address] CELESTE SARMIENTO Unavailable Unavailable + CELESTE SARMIENTO Unavailable Unavailable + CELESTE SARMIENTO Unavailable Unavailable + FLORIN SARMIENTOIN Unavailable Unavailable + FLORIN SARMIENTOIN Unavailable Unavailable + CELESTE SARMIENTO Unavailable Unavailable + Care Team Providers Name Role Phone Lashell Alonso Attending Unavailable Lashell Alonso Referring Unavailable Janett, Viri Primary Care Unavailable Moodmauricio, Jeff Attending Unavailable Janett, Viri Referring Unavailable Farzana Wray Attending Unavailable Janett, Viri Primary Care Unavailable Ashelfah, Ghasem Admitting Unavailable Dk, Barney Attending Unavailable Darrell, Suraj Consulting Unavailable Ashelfah, Ghasem Admitting Unavailable Ashelfah, Ghasem Attending Unavailable Janett, Viri Primary Care Unavailable Dk, Barney Consulting Unavailable Ashelfah, Ghasem Admitting Unavailable Darrell, Suraj Attending Unavailable Janett, Viri Primary Care Unavailable Darrell, Suraj Consulting Unavailable Dk, Barney Consulting Unavailable Ashelfah, Ghasem Admitting Unavailable Janett, Viri Primary Care Unavailable Darrell, Suraj Consulting Unavailable Dk, Barney Attending Unavailable Dk, Barney Consulting Unavailable Moodiserasmo, Jeff Attending Unavailable Ashelfah, Ghasem Referring Unavailable JANETT, VIRI Attending Unavailable JANETT, VIRI Primary Care Unavailable JANETT, VIRI Attending Unavailable JANETT, VIRI Primary Care Unavailable TONA ESCOBAR CNP Attending Unavailable JANETT, VIRI Primary Care Unavailable Mcrae, Jacoby Attending Unavailable PROBLEMS PROBLEMS DATE TYPE CONDITION / CODE ATTENDING STATUS SOURCE 07/13/2018 Unknown L73.2 - Hidradenitis Lashell Alonso Active Kyle suppurativa / [facility] L73.2(ICD-10) Hospital Repository 12/28/2017 Admitting Unknown / Mcrae, Jacoby Active [facility] Medical diagnosis UNK(Unknown) [facility] Repository 01/26/2018 Unknown R07.9 - Chest pain, [place], Active Kyle unspecified / [facility] R07.9(ICD-10) Hospital Repository 01/26/2018 Unknown R07.89 - Other chest [place], Active Salyer pain / [facility] R07.89(ICD-10) Hospital Repository 01/26/2018 Unknown R07.1 - Chest pain [place], Active Salyer on breathing / [facility] R07.1(ICD-10) Hospital Repository 01/26/2018 Unknown I25.10 - [place], Active Salyer Atherosclerotic [facility] heart disease of Hospital [place] coronary Repository artery without angina pectoris / I25.10(ICD-10) PROCEDURES PROCEDURES No Procedure Records FoundRESULTS RESULTS CBC W/DIFF, AUTOMATED Collected: 07/13/2018 Status: F Source: [place] 3:22 PM [facility] HOSPITAL REPOSITORY TYPE CODE TESTS RESULT OUT OF RANGE REFERENCE UNITS LAB L100.1000 4.4-11.0 K/mm3 Normal WBC 8.3 LAB L100.1200 4.2-5.4 M/mm3 Low RBC 4.14 LAB L100.1300 12.0-15.0 g/dl Normal HGB 12.4 LAB L100.1400 37-47 % Normal HCT 37.9 LAB L100.1500 81-99 fL Normal MCV 91.5 LAB L100.1600 27.0-32.0 pg Normal MCH 30.0 LAB L100.1700 32-36 g/gl Normal MCHC 32.7 LAB L100.1810 11.6-14.6 % Normal RDW CV 13.2 LAB L100.1820 35.1-43.9 fl Normal RDW SD 43.9 LAB L100.1900 150-450 K/mm3 Normal PLT 250 LAB L100.2000 6.2-12.0 fl Normal MPV 10.4 LAB L100.2100 47-70 % Normal NEUT% 61.2 LAB L100.2200 19-41 % Normal LY% 28.0 LAB L100.2300 0-10 % Normal MONO% 8.2 LAB L100.2400 0-5 % Normal EO% 2.3 LAB L100.2500 0-1 % Normal BASO% 0.2 LAB L100.2550 0.0-0.9 % Normal IM GRAN % 0.100 Result Comment: IG% - Immature Granulocytes (promyelocytes, myelocytes and metamyelocytes) > 1% indicates that a LEFT SHIFT is Present. LAB L100.2620 2.0-7.7 X10 3/uL Normal Absolute Neut 5.1 LAB L100.2720 0.83-4.51 X10 3/ul Normal Absolute Lymph 2.32 Performed By: #### L100.0100 #### [facility] [address] [place], [place], [id number] BASIC METABOLIC Collected: 07/13/2018 Status: F Source: [place] PROFILE (BMP) 3:22 PM [facility] REPOSITORY TYPE CODE TESTS RESULT OUT OF RANGE REFERENCE UNITS LAB L501.0100 74-106 mg/dL High GLU 135 Result Comment: Fasting Glucose result greater than or equal to 126 mg/dL suggests DIABETES MELLITUS per A.D.A. criteria. Please note revised GLUCOSE reference range effective 2017. LAB L501.1000 7-18 mg/dL Normal BUN 9 LAB L501.1100 0.55-1.02 mg/dL Normal CREAT,SERUM 0.92 Result Comment: The validity of the calculated GFR AND GFRAA in patients over 70 years has not been determined. Clinical correlation is essential. LAB L501.1110 >60 mL/min Normal EST GFR 68 Result Comment: Non- GFR Calc LAB L501.1115 >60 mL/min Normal EST GFR - AA 82 Result Comment: GFR Calc LAB L501.1300 10-20 RATIO Low BUN/CRE 9.8 LAB L501.2200 8.5-10.1 mg/dL Normal CA 8.8 LAB L501.5300 136-145 mmol/L Normal NA 140 LAB L501.5600 3.5-5.1 mmol/L Normal K 3.5 LAB L501.5900 98-107 mmol/L Normal CL 105 LAB L501.6100 21.0-32.0 mmol/L Normal CO2 26.0 LAB L501.6200 5-15 Normal GAP 9 Performed By: #### L500.2500, L500.3400 #### [facility] [address] [place], [address] LIVER PROFILE Collected: 07/13/2018 Status: F Source: [place] 3:22 PM [facility] REPOSITORY TYPE CODE TESTS RESULT OUT OF RANGE REFERENCE UNITS LAB L501.1500 6.4-8.2 g/dL High T PROT 8.6 LAB L501.1800 3.2-5.0 g/dL Normal ALB 3.9 LAB L501.1950 2.2-4.2 g/dL High GLOB 4.7 LAB L501.4100 15-37 U/L High AST 51 LAB L501.4305 45-117 U/L High ALK P 143 LAB L501.4405 13-56 U/L Normal ALT 53 LAB L501.4600 0.20-1.00 mg/dL Normal T BILI 0.40 LAB L501.4700 0.00-0.30 mg/dL Normal D BILI 0.08 Performed By: #### L500.2500, L500.3400 #### [facility] [address] [place], [address] HEPATITIS B SURFACE Collected: 07/13/2018 Status: F Source: [place] AG 3:22 PM [facility] REPOSITORY TYPE CODE TESTS RESULT OUT OF RANGE REFERENCE UNITS LAB L3100.0400 Negative Normal HB Negative SURF AG Performed By: #### L3100.0390, L3100.0440, L3100.0528, L3100.0625, L3400.8000 #### [facility] (refer to report for specific site) refer to report for address and phone number HEPATITIS B CORE AB Collected: 07/13/2018 Status: F Source: [place] IGM 3:22 PM [facility] REPOSITORY TYPE CODE TESTS RESULT OUT OF RANGE REFERENCE UNITS LAB L3100.0440 Negative Normal HB Negative CORE [id number] Result Comment: Performed at: - [facility] [id number] Coagulator: Siddhartha Villegas PhD, Phone: [phone] Performed By: #### L3100.0390, L3100.0440, L3100.0528, L3100.0625, L3400.8000 #### [facility] (refer to report for specific site) refer to report for address and phone number HEP B SURFACE Collected: 07/13/2018 Status: F Source: [place] ANTIBODIES 3:22 PM [facility] REPOSITORY TYPE CODE TESTS RESULT OUT OF RANGE REFERENCE UNITS LAB L3100.0528 . Normal Hep B Non Reactive Yane AB Result Comment: Non Reactive: Inconsistent with immunity, less than 10 mIU/mL Reactive: Consistent with immunity, greater than 9.9 mIU/mL Performed By: #### L3100.0390, L3100.0440, L3100.0528, L3100.0625, L3400.8000 #### [facility] (refer to report for specific site) refer to report for address and phone number HEPATITIS C ANTIBODIES Collected: 07/13/2018 Status: F Source: [place] 3:22 PM [facility] REPOSITORY TYPE CODE TESTS RESULT OUT OF RANGE REFERENCE UNITS LAB L3100.0650 0.0-0.9 s/co ratio Normal HEP C AB 0.1 Result Comment: Negative: < 0.8 Indeterminate: 0.8 - 0.9 Positive: > 0.9 The CDC recommends that a positive HCV antibody result be followed up with a HCV Nucleic Acid Amplification test (134012). Performed By: #### L3100.0390, L3100.0440, L3100.0528, L3100.0625, L3400.8000 #### [facility] (refer to report for specific site) refer to report for address and phone number QUANTIFERON TB-GOLD+ Collected: 07/13/2018 Status: F Source: [place] 3:22 PM [facility] REPOSITORY TYPE CODE TESTS RESULT OUT OF RANGE REFERENCE UNITS LAB L3400.8025 . Normal QFT TB Comment GOLD Result Comment: The QuantiFERON-TB Gold Plus result is determined by subtracting the Nil value from either TB antigen (Ag) tube. The mitogen tube serves as a control for the test. LAB L3400.8035 . IU/mL Normal QFT TB1+ AG 0.04 CLIF LAB L3400.8045 . IU/mL Normal QFT TB2+ AG 0.03 CLIF LAB L3400.8055 . IU/mL Normal QFT NIL VALUE 0.03 LAB L3400.8065 . IU/mL Normal QFT MITOGEN > 10.00 CLIF LAB L3400.8075 Negative Normal QFT TB POS Negative CRIT Result Comment: The specimen received for QuantiFERON testing was incubated by the ordering institution. Specific procedures outlined in our Directory of Services and in the package insert for the QuantiFERON Gold (In Tube) test must be followed to enable for proper stimulation of cells for the production of interferon gamma. Performed By: #### L3100.0390, L3100.0440, L3100.0528, L3100.0625, L3400.8000 #### [facility] (refer to report for specific site) refer to report for address and phone number LIPID Collected: 04/12/2018 Status: F Source: [facility] 6:54 AM [facility] REPOSITORY TYPE CODE TESTS RESULT OUT OF REFERENCE UNITS RANGE LAB CHOL(LOINC 0-200 mg/dL ) Cholesterol High 259 Result Comment: Cholesterol Reference Interval: Less than 200 Desirable 200-239 Borderline high risk 240 and above High risk LAB TRIG(LOINC) 0-150 mg/dL Triglycerides High 195 Result Comment: Triglyceride Reference Interval: Less than 150 Normal 150-199 Borderline high risk 200-499 High risk 500 or higher Very high risk LAB HD(LOINC) 40-60 mg/dL HDL Low Cholesterol 33 LAB LDL(LOINC) 0-130 mg/dL LDL High Cholesterol 187 Performed By: #### LIPID #### [facility] [address] [place] [address] CARD.CATH Observed: 12/28/2017 Status: UNK Source: [facility] 9:20 AM [facility] REPOSITORY [Embedded Image Not Available] Patient Name: SONDRA SPENCER [address] [facility] [address] Date of : [address] [place] [address] Unit Number: [id number] Cardiac Catheterization Patient Status: REG [facility] Attending Doctor: Jacoby Mcrae MD Service Date: 12/28/17 09 Cardiac Catheterization Referring Physician: Viri Rowland Ordering Provider: Kinza Casas DO Allergies: Coded Allergies: PENICILLINS (Mild, HIVES 12/27/17) Summary: Procedures performed: 96011: left-heart catheterization and coronary and bypass graft angiography Indications: R07.9: angina pectoris I25.10: two-vessel [place] artery coronary artery disease Z95.1: history of four-vessel coronary artery bypass graft surgery Anesthesia: local (lidocaine 2% sq) and conscious sedation (midazolam 1 mg, fentanyl 50 mcg IV) Access: right common femoral artery (6F, under real-time ultrasound guidance. Common femoral artery located 2 - 3 cm deep to skin surface.) Findings: The left main coronary artery was engaged with a 6F JL4 catheter and is normal. The left anterior descending artery is normal. The mid-vessel just distal to the first diagonal branch does appear hazy but is most likely due to competing retrograde flow from the patent left internal mammary artery conduit. The remainder of the left anterior descending artery and first diagonal branch are normal. The left circumflex artery is nondominant. There is a diffuse, 80-percent mid-vessel stenosis involving the origin of the first obtuse marginal branch, which has a diffuse, 50 -percent proximal stenosis. There is competing flow to the first obtuse marginal branch. The second obtuse marginal branch is small and normal. The right coronary artery was engaged with a 6F JR4 catheter. The vessel is dominant. There is a focal, 90-percent proximal stenosis just distal to the first acute marginal branch. There is a diffuse, 99-percent distal stenosis. The saphenous vein graft to the left circumflex artery was engaged with the JR4 catheter. The graft is a Y-graft and goes separately to the first and second obtuse marginal branches. The graft is patent. The saphenous vein graft to the right coronary artery was engaged with the JR4 catheter. This appears to be a sequential graft going to the posterior descending and right posterolateral branches. The graft is patent. The left subclavian artery was engaged with the JR4 catheter, which then was exchanged over an exchange-length wire for a 6F BRITTA catheter. The left internal mammary artery is small but patent and goes to the mid-left anterior descending artery. Hemostasis was attempted but unsuccessful with a Perclose Proglide vascular access closure device due to patient body habitus. Impression: 1. Two-vessel [place] artery coronary artery disease: (1) 80-percent mid-left circumflex artery stenosis. 50-percent proximal first obtuse marginal branch stenosis. (2) 90-percent proximal followed by 99-percent distal right coronary artery stenoses. 2. Patent left internal mammary artery to the mid-left anterior descending artery. 3. Patent saphenous vein Y-graft to the first and second obtuse marginal branches. 4. Patent saphenous vein graft sequentially to the posterior descending and posterolateral branches. 5. Normal left-ventricular end-diastolic pressure (17 mm Hg). Disclaimer This dictation was created using voice recognition software. Phonetic and/or minor grammatical errors may exist. eSign Date and Time Jacoby Mcrae MD Verified/Reviewed by 12/28/17 0928 CBC Collected: 12/28/2017 Status: F Source: [facility] 7:00 AM [facility] REPOSITORY Order Comment: [place]: M TYPE CODE TESTS RESULT OUT OF RANGE REFERENCE UNITS LAB L200.54383 4.5-11.0 K/CU MM Normal WBC 7.1 LAB L200.87272 3.90-5.30 M/CU MM Normal RBC 4.38 LAB L200.88553 11.5-15.5 G/DL Normal HGB 13.4 LAB L200.31200 35.0-47.0 % Normal HCT 40.6 LAB L200.72816 80.0-99.0 fl Normal MCV 92.7 LAB L200.67387 32.0-36.0 GM/DL Normal MCHC 33.0 LAB L200.73720 11-14.5 Normal RDW 14.4 LAB L200.80179 9.4-12.4 Normal MPV 10.3 LAB L200.23516 150-450 K/CU MM Normal PLT 201 LAB L200.40347 Less than 1 % Normal NRBC 0.0 Performed By: #### L200.01144 #### [facility] [address] [place] [address] BMP Collected: 12/28/2017 Status: F Source: [facility] 7:00 AM [facility] REPOSITORY Order Comment: [place]: M TYPE CODE TESTS RESULT OUT OF RANGE REFERENCE UNITS LAB L500.35752 136-145 MMOL/L Normal NA 138 LAB L500.07023 3.5-5.1 MMOL/L Normal K 4.4 Result Comment: Slight Hemolysis, Result may be falsely increased. LAB L500.16646 98-107 MMOL/L Normal CL 105 LAB L500.03501 21-32 MMOL/L Normal CO2 25 LAB L500.97102 5-16 MMOL/L Normal AGAP 8 LAB L500.01567 70-100 MG/DL High GLU 140 Result Comment: 70-100- Normal Fasting; 100-125 Impaired Fasting; greater than 126 on more than one result- Diabetes. ADA guidelines. Results may be falsely elevated after the administration of Sulfapyridine. Results may be falsely depressed after the administration of Sulfasalazine. LAB L500.18089 7-26 MG/DL Normal BUN 13 LAB L500.10468 0.510-0.950 MG/DL Normal CREAT 0.778 Result Comment: Patients receiving either N-Acetylcysteine (NAC) or Metamizole prior to venipuncture, may have falsely depressed results. LAB L500.10520 15-24 Normal BUN/CREA 17 LAB L500.36442 8.5-10.1 MG/DL Normal CALCIUM TOTAL 9.4 Performed By: #### L500.37772, L500.05232 #### [facility] [address] [place] [address] GFR EST Collected: 12/28/2017 Status: F Source: [facility] 7:00 AM [facility] REPOSITORY Order Comment: [place]: TYPE CODE TESTS RESULT OUT OF RANGE REFERENCE UNITS LAB L500.90503 ML/MIN Normal IF non-AFR Greater than AMER 60 LAB L500.79961 ML/MIN Normal IF Greater than AMER 60 Performed By: #### L500.70378, L500.16763 #### [facility] [address] [place] [address] 12 LEAD ELECTROCARDIOGRAM Observed: 12/13/2017 Status: F Source: [place] 8:55 AM [facility] REPOSITORY [facility] Cardiovascular Services [address] [place] [address] 12 Lead EKG 12/08/17 0532 MR#: [id number] Acct: [id number] Name: SONDRA SPENCER Rep #: [id number] : 1965 52 From: Jeff Rivera MD Attending Dr: Barney Root MD Status: DIS JULES Ordering Dr: Elsa Van MD Date: 12/08/17 Location: [facility] Sex: F C Admitted: 12/07/17 Test Reason : AM EKG Blood Pressure : / mmHG Vent. Rate : 079 BPM Atrial Rate : 079 BPM P-R Int : 152 ms QRS Dur : 100 ms QT Int : 410 ms P-R-T Axes : -02 017 101 degrees QTc Int : 470 ms Normal sinus rhythm T wave abnormality, consider lateral ischemia Abnormal ECG Confirmed by JEFF RIVERA MD ([id number]), assistant film editor LUIS JACKSON ([id number]) on 12/10/2017 1:41:40 PM Referred By: SETH Confirmed By:JEFF RIVERA MD 12/10/17 1341 Date Jeff Rivera MD CC: Elsa Van; Barney Root MD; Viri Rowland MD Signed 12 LEAD ELECTROCARDIOGRAM Observed: 12/13/2017 Status: F Source: [place] 8:41 AM [facility] REPOSITORY [facility] Cardiovascular Services [address] [place], [place] [address] [address] 12 Lead EKG 12/07/17 1615 MR#: [id number] Acct: [id number] Name: SONDRA SPENCER Rep #: [id number] : 1965 52 From: Bear Everett MD Attending Dr: Barney Root MD Status: DIS JULES Ordering Dr: Provider, Ed P. Date: 12/07/17 Location: [facility] Sex: F C Admitted: 12/07/17 Test Reason : CP Blood Pressure : / mmHG Vent. Rate : 094 BPM Atrial Rate : 094 BPM P-R Int : 136 ms QRS Dur : 090 ms QT Int : 342 ms P-R-T Axes : -01 011 100 degrees QTc Int : 427 ms Normal sinus rhythm T wave abnormality, consider lateral ischemia Abnormal ECG Confirmed by BEAR EVERETT MD ([id number]), assistant film editor LUIS JACKSON ([id number]) on 12/08/2017 5:04:27 PM Referred By: OLIVER Confirmed By:BEAR EVERETT MD 12/08/17 170 Date Bear Everett MD CC: ED PHYSICIAN PROVIDER; Barney Root MD; Viri Rowland MD Signed DISCHARGE SUMMARY Observed: 12/08/2017 Status: F Source: [place] 5:14 PM [facility] REPOSITORY [facility] Medical Records Department [address] [place] [address] Discharge Summary 12/08/17 1139 MR#: [id number] Acct: [id number] Name: SONDRA SPENCER Rep #: [id number] : 1965 52 From: Rosario Patton CASING INSPECTOR-C PCP: Janett POTTER,Viri Status: DIS JULES Y Location: [place] [address] <Rosario Patton - Last Filed: 12/08/17 11:45> Discharge Date and Diagnosis Date of Admission: 12/07/17 Date of Discharge: 12/08/17 - Primary Discharge Diagnosis Active and Suspected Problems (Last Updated 11/23/17 @ 17:19 by Farzana Wray) 1. Musculoskeletal chest pain - Secondary Discharge Diagnosis Chronic Problems (Last Updated 11/23/17 @ 17:19 by Farzana Wray) Aortocoronary bypass status (Chronic 10/01/15) CABG x5 - ARMSTRONG to :AD, SVG to 1stmarginal branch of the CX, SVG to distal CX, SVG to PDA, and SVG to posterolateral RCA 10/01/15 Atherosclerotic heart disease of [place] coronary artery without angina pectoris (Chronic) CABG x5 - ARMSTRONG to :AD, SVG to 1stmarginal branch of the CX, SVG to distal CX, SVG to PDA, and SVG to posterolateral RCA 10/01/15 Tobacco abuse (Chronic) Hyperlipidemia (Chronic) History of AL (myocardial infarction) (Chronic) Hospital Course and Treatment Imaging Results: Diagnostic Data Chest X-Ray 12/07/17 16:29 IMPRESSION: No acute cardiopulmonary process. Electronically Signed: Sofiya Valladares MD at 17:14 EDT Tel , Service support , Dr. Ramírez- Cardiology Operations: None Procedures: Stress test Summary of Care Provided: The patient is a 52 year old F admitted to 12/07/2017 due to chest pain. She has a past medical history of CABG 5 in 2016, hyperlipidemia, tobacco dependence. EKG without ST changes. Troponin negative. Chest x-ray without acute findings. Patient underwent nuclear stress test which was negative for ischemia. Patient was evaluated by cardiology. Patient has a history of noncompliance. She does not wish to take recommended medication including beta-anais. She does not follow-up with cardiology as recommended. 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 Casas in [place]. She continues to use tobacco daily. Pain is reproducible on the right side of chest. She was given Motrin and expressed resolve of chest pain. ACS ruled out. Tobacco cessation was strongly encouraged. Recommend follow-up with primary care physician in 1 week and cardiology in 1-2 weeks. General: Alert, Oriented x3, Cooperative, No apparent distress HEENT: Atraumatic, PERRLA, EOMI, Normocephalic Oral: Moist Mucosa Neck: Supple, No JVD, Negative Carotid Bruits, Trachea Midline, Thyroid Normal Size and Texture Lungs: Clear to auscultation, Diminished Cardiovascular: Regular rate, Regular Rhythm, Normal S1, Normal S2, No murmurs Abdomen: Bowel Sounds Present, Soft, Non Tender, Non-Distended, No Hepato-splenomegaly Extremities: No clubbing, No cyanosis, No edema Skin: No rashes, No breakdown Lymphatic: No Cervical, Supraclavicular, or Inguinal Adenopathy Neurological: Cranial nerves II-XII grossly intact, Motor Exam 5/5 strength throughout Psych/Mental Status: Normal Affect, Appropriate Patient seen exam prior to discharge. Physical assessment as noted above. Patient is stable for discharge home with the follow-up recommendations as noted above. This patient was seen by STEFAN De La Cruz under the supervision of Dr. Root. Discharge Diet: Low fat/ Low Cholesterol Discharge Activity: Return to Normal Activity Call your doctor if you observe: Shortness of breath, Dizziness, Fainting spells, Chest pain, Increased palpitations (irregular heartbeat) Home Medications: Medications to take at Discharge Aspirin [Aspirin, Baby] 81 mg PO QHS 01/05/17 Evolocumab [Repatha Sureclick] 140 mg SQ Q14D 12/07/17 Nitroglycerin [Nitrostat] 0.4 mg SUBLINGUAL Q5M PRN #10 tab 12/08/17 Following Prescrptions Were Given to Patient: Nitroglycerin [Nitrostat] 0.4 mg SUBLINGUAL Q5M PRN #10 tab PRN Reason: Chest Pain Primary Care Physician: Viri Rowland MD [Primary Care Provider] - Please follow up with your Primary Care Physician in: 1 Week Please Follow Up With: Dr. Casas - Cardiology When: 1-2 Weeks Disposition: Home Minutes spent on discharge:: 35 Patient Condition:: Stable Medical Necessity - Tobacco Use Smoking Status: Current every day smoker Meaningful Use Info Meaningful Use Diagnoses (Choose all that apply): None applicable <Barney Root - Last Filed: 12/08/17 17:14> Discharge Date and Diagnosis - Secondary Discharge Diagnosis Chronic Problems (Last Updated 11/23/17 @ 17:19 by Farzana Wray) Aortocoronary bypass status (Chronic 10/01/15) CABG x5 - [place] to :AD, SVG to 1stmarginal branch of the CX, SVG to distal CX, SVG to PDA, and SVG to posterolateral RCA 10/01/15 Atherosclerotic heart disease of [place] coronary artery without angina pectoris (Chronic) CABG x5 - ARMSTR[place] to :AD, SVG to 1stmarginal branch of the CX, SVG to distal CX, SVG to PDA, and SVG to posterolateral RCA 10/01/15 Tobacco abuse (Chronic) Hyperlipidemia (Chronic) History of AL (myocardial infarction) (Chronic) Hospital Course and Treatment Summary of Care Provided: This patient was seen in conjunction with Rosario DOWD. I have independently interviewed and examined the patient and reviewed pertinent history, examination findings, laboratory and plan of management. I have reviewed the note and agree with the documented findings with the few additional points. In brief, patient is admitted for atypical chest pain most probably secondary to musculoskeletal pain. Patient had EKG which did not show acute change. Troponin negative. Patient had a stress test done which was negative for acute myocardial ischemia I have discussed my assessment with Rosario DOWD and orders have been reviewed. [] Code Visit OBSV E AND M: 58410 Observation care discharge 12/08/17 1147 <Electronically signed by Rosario Patton NP-C> Date Rosario RODRIGUESC 12/08/17 2964<Electronically signed by Barney Root MD> Cosigner Signature (if applicable): Date Barney Root MD CC: CASING INSPECTOR-C Rosario Patton; kinza casas; Barney Root MD; Viri Rowland MD Signed DISCHARGE INSTRUCTION Observed: 12/08/2017 Status: F Source: [place] 11:36 AM [facility] REPOSITORY [facility] Medical Records Department [address] [place] [address] Instructions for Home/Discharge Instructions 12/08/17 1131 MR#: [id number] Acct: [id number] Name: SONDRA SPENCER Rep #: [id number] : 1965 52 From: Rosario AVILES PCP: Viri Rowland MD Status: ADM JULES - Discharge Diagnoses Current Active Problems: Current Active and Chronic Problems (Last Updated 11/23/17 @ 17:19 by Farzana Wray) Chest pain (Acute) You will use the following diet at home:: Cardiac Discharge Activity: Return to Normal Activity Call your doctor if you observe: Shortness of breath, Dizziness, Fainting spells, Chest pain, Increased palpitations (irregular heartbeat) Allergies/Adverse Reactions: Allergies Penicillins Allergy (Verified 12/07/17 16:11) Hives Medications to take at Discharge Aspirin [Aspirin, Baby] 81 mg PO QHS 01/05/17 Evolocumab [Repatha Sureclick] 140 mg SQ Q14D 12/07/17 Nitroglycerin [Nitrostat] 0.4 mg SUBLINGUAL Q5M PRN #10 tab 12/08/17 The following prescriptions were given: Nitroglycerin [Nitrostat] 0.4 mg SUBLINGUAL Q5M PRN #10 tab PRN Reason: Chest Pain Primary Care Physician: Viri Rowland MD [Primary Care Provider] - Please follow up with your Primary Care Physician in: 1 Week Please Follow Up With: Dr. Casas - Cardiology When: 1-2 Weeks Proposed Discharge Date: 12/08/17 12/08/17 1136 <Electronically signed by Rosario AVILES> Date Rosario Patton CASING INSPECTOR-C CC: Viri Rowland MD CONSULTATION Observed: 12/08/2017 Status: F Source: [place] 10:15 AM [facility] REPOSITORY [facility] Medical Records Department [address] [place] [address] Consultation 12/08/17 1001 MR#: [id number] Acct: [id number] Name: SONDRA SPENCER Rep #: [id number] : 1965 52 From: Suraj Ramírez MD PCP: Viri Rowland MD Status: ADM JULES Y Location: [place] [address] Problem List (1) Chest pain Status: Acute Qualifiers: Chest pain type: chest pain on breathing Qualified Code(s): R07.1 - Chest pain on breathing; R07.81 - Pleurodynia Reason for Consult Date of Consultation: 12/08/17 History of Present Illness: The patient is a 52 year old F with past medical history significant for dyslipidemia, nicotine dependence and coronary artery disease status post coronary artery bypass graft surgery about 2 years ago. She presented to the emergency room with complaints of intermittent right-sided chest pain. This has been happening for the last 2 months or so. Occurs mostly mostly at rest. Last from seconds to maybe half an hour. She describes it as both stabbing and pressure-like. Not related to exertion. It is worsened with deep breathing and coughing. Sometimes it radiates to the right shoulder. No associated shortness of breath. No diaphoresis. No palpitations. According to her, she had right-sided chest pain about 2 years ago as well. She is not sure about the quality of that discomfort though. Workup led to diagnosis of multivessel coronary artery disease resulting in CABG. Patient had an episode of vomiting 2 days ago. According to her, this was unrelated to her right sided chest pain. [] Past Medical History Allergies/Adverse Reactions: Allergies Penicillins Allergy (Verified 12/07/17 16:11) Hives Home Medications: Ambulatory Orders Medication Instructions Recorded Aspirin [Aspirin, Baby] 81 mg PO QHS 01/05/17 Evolocumab [Repatha Sureclick] 140 mg SQ Q14D 12/07/17 Past Medical History (Chronic Problems): Chronic Problems (Last Updated 11/23/17 @ 17:19 by Farzana Wray) Aortocoronary bypass status (Chronic 10/01/15) CABG x5 - ARMSTRONG to :AD, SVG to 1stmarginal branch of the CX, SVG to distal CX, SVG to PDA, and SVG to posterolateral RCA 10/01/15 Atherosclerotic heart disease of [place] coronary artery without angina pectoris (Chronic) CABG x5 - AMRSTRONG to :AD, SVG to 1stmarginal branch of the CX, SVG to distal CX, SVG to PDA, and SVG to posterolateral RCA 10/01/15 Tobacco abuse (Chronic) Hyperlipidemia (Chronic) History of AL (myocardial infarction) (Chronic) Surgical History: - - The patient is undergone lumbar laminectomy on 2 occasions in the past. section was performed 2 in the past. She is undergone right knee arthroscopy on 3 occasions. 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 Patient's mother at age of 83 with a history of dementia and cerebrovascular accident. Paternal Family History: Family History (Last Updated 11/23/17 @ 17:22 by Farzana Wray) Father CAD (coronary artery disease) Mother CVA (cerebral vascular accident) History Items: - - not Pertinent to presenting complaint Lives: With Family Smoking Status: Current every day smoker Alcohol: None Drugs: None Review of Systems - Review of Systems General: Denies: Fever, Chills HEENT: Denies: Sore Throat Cardiovascular: Reports: Chest Discomfort at Rest. Denies: Orthopnea, PND, Peripheral Edema Gastrointestinal: Reports: Emesis - One time as noted in HPI. Denies: Abdominal Discomfort, Jaundice, Hematemesis Muscoloskeletal: Reports: - - According to the patient, her post CABG course was complicated with infection of her sternal wound. She was advised sternotomy however she refused Neurological: Denies: History of TIA, History of CVA Hematologic/ Lymphatic: Denies: Easy Brusing, Easy Bleeding Subjectve: Comfortable. No apparent distress Objective: Vital Signs Temp Pulse Resp BP Pulse Ox 98.5 F 85 16 114/63 96 12/08/17 08:49 12/08/17 09:23 12/08/17 08:49 12/08/17 08:49 12/08/17 08:49 Oxygen Delivery Method Room Air Weight: 102.6 kg Body Mass Index (BMI) 38.8 Intake and Output for Last 24 Hours Intake Total 540 / 540 Balance 540 / 540 General: Healthy Appearing, Awake, Alert, Oriented x 3, Obese HEENT: Atraumatic, Normocephalic Oral: Moist Mucosa Neck: Supple, No JVD Chest Wall: - - Reproducible discomfort with superficial palpation of the right upper chest. Lungs: Clear to auscultation Cardiovascular: Regular Rhythm, Normal S1, Normal S2 Vascular: No Carotid Bruits Abdomen: Bowel Sounds Present, Soft Extremities: No edema Neurological: No Focal Motor or Sensory Deficit Psych/Mental Status: Appropriate 12/07/17 20:22: Troponin I < 0.015 12/07/17 22:54: Troponin I < 0.015 12/08/17 06:00: Sodium 137, Potassium 4.1, Chloride 105, Carbon Dioxide 25.0, Anion Gap 7, BUN 10, Creatinine 0.77, Est GFR (MDRD) Af Amer 101, Est GFR (MDRD) Non-Af 84, BUN/Creatinine Ratio 13.0, Glucose 126 H, Calcium 9.0, Triglycerides 195, Cholesterol 204 H, LDL Cholesterol 134 H, VLDL Cholesterol 39, HDL Cholesterol 31 L 12/08/17 06:00: WBC 7.7, RBC 4.45, Hgb 13.6, Hct 41.5, MCV 93.3, MCH 30.6, MCHC 32.8, RDW 14.6, RDW Differential 48.5 H, Plt Count 240, MPV 10.6 12/08/17 06:00: PT 13.4, INR 1.0, APTT 33.3 Rhythm: Normal sinus rhythm EKG: Sinus rhythm. T-wave inversions in lateral leads. ECHO: Stress Test: Normal LV systolic function. No ischemia. Cardiac Cath: PCI: CT Surgery: Holter monitor: EPS: PPM: CXR: Chest CT Scan: Assessment/Plan . Chest pain. Right-sided. Exacerbated with deep breathing and coughing. Positive reproducibility on palpation. Unlikely cardiac. Negative stress test. Consider musculoskeletal. Give a trial of NSAID. Manage as per internal medicine 2. Coronary artery disease status post CABG. She takes only aspirin at home. She does not have any history of AL in the past. However in view of her skin CAD, I offered to put her on low-dose beta blockers. She does not want to be on any medications except aspirin at present X 3. Nicotine dependence. Counseled to quit 4. Dyslipidemia. Manage as per on bus driver/monitor. Patient wants to follow with her own bus driver/monitor as outpatient 12/08/17 1015 <Electronically signed by Suraj Ramírez MD> Date Suraj Ramírez MD Cosigner Signature (if applicable): Date CC: Viri Rowland MD Signed STRESS REPORT Observed: 12/08/2017 Status: F Source: [place] 8:52 AM [facility] REPOSITORY [facility] Cardiovascular Services [address] [place] [id number] MR#: [id number] Acct: [id number] Name: SONDRA SPENCER Rep #: [id number] : 1965 52 From: Bear Everett MD Primary Care: Viri Rowland MD Status: ADM JULES Ordering Dr: Sex: F C Stress Test Report Pharmacologic myocardial perfusion stress test. 52-year-old lady with a history of chest pain. Stress protocol: Resting EKG demonstrates normal sinus rhythm with rate of 80 bpm normal intervals and noted resting blood pressure is 146/84 mmHg. 0.4 mg regadenoson was infused per usual protocol followed by rapid intravenous saline flush injection continuous EKG monitoring was performed. The patient maintained sinus rhythm throughout the recording. The maximum heart rate attained was 110 bpm which was 65% maximum predicted heart rate the maximum workload was [address]-T wave changes were noted. Myocardial perfusion protocol. 14.8 mCi of technetium 99m sestamibi was injected at rest. 0.4 mg of regadenoson was infused per usual protocol. At peak infusion 44.8 mCi of technetium 99m sestamibi was injected stress images were obtained stress and rest images were reconstructed and compared in the short axis vertical long and horizontal long axis. Gated images were also obtained pre- Perfusion SPECT analysis: Review of the stress images demonstrate normal uptake of tracer noted in all areas of the myocardium. The resting images similarly demonstrate normal uptake of tracer noted in all areas of the myocardium. No areas of reversibility are noted suggest ischemia and no previous infarct is noted. Gated SPECT analysis: The gated ejection fraction is noted to be 74%. Conclusion: Normal myocardial perfusion stress test with no evidence of ischemia. Preserved ejection fraction. 12/08/17 0852 <Electronically signed by Bear Everett MD> Date Bear Everett MD CC: Barney Root MD; Viri Rowland MD Date Dictated: 12/08/1750 Date Transcribed: 12/08/17849 Advertising Coordinator: CO Signed CBC-COMPLETE BLOOD CNT Collected: 12/08/2017 Status: F Source: [place] NO DIFF 6:00 AM [facility] REPOSITORY TYPE CODE TESTS RESULT OUT OF RANGE REFERENCE UNITS LAB L100.1000 4.4-11.0 K/mm3 Normal WBC 7.7 LAB L100.1200 4.2-5.4 M/mm3 Normal RBC 4.45 LAB L100.1300 12.0-15.0 g/dl Normal HGB 13.6 LAB L100.1400 37-47 % Normal HCT 41.5 LAB L100.1500 81-99 fL Normal MCV 93.3 LAB L100.1600 27.0-32.0 pg Normal MCH 30.6 LAB L100.1700 32-36 g/gl Normal MCHC 32.8 LAB L100.1810 11.6-14.6 % Normal RDW CV 14.6 LAB L100.1820 35.1-43.9 fl High RDW SD 48.5 LAB L100.1900 150-450 K/mm3 Normal PLT 240 LAB L100.2000 6.2-12.0 fl Normal MPV 10.6 Performed By: #### L100.0500 #### [facility] [address] [place], [address] PROTHROMBIN TIME W/INR Collected: 12/08/2017 Status: F Source: [place] 6:00 AM [facility] REPOSITORY TYPE CODE TESTS RESULT OUT OF RANGE REFERENCE UNITS LAB L300.4150 11.7-14.9 SECONDS Normal PROTIME 13.4 LAB L300.4200 Normal INR 1.0 Performed By: #### L300.3900, L300.4310 #### [facility] [address] [place], [address] PARTIAL THROMBOPLAST Collected: 12/08/2017 Status: F Source: [place] TIME 6:00 AM [facility] REPOSITORY TYPE CODE TESTS RESULT OUT OF RANGE REFERENCE UNITS LAB L300.4310 24.1-36.2 Seconds Normal PTT 33.3 Performed By: #### L300.3900, L300.4310 #### [facility] [address] [place], [address] BASIC METABOLIC Collected: 12/08/2017 Status: F Source: [place] PROFILE (BMP) 6:00 AM [facility] REPOSITORY TYPE CODE TESTS RESULT OUT OF RANGE REFERENCE UNITS LAB L501.0100 74-106 mg/dL High GLU 126 Result Comment: Fasting Glucose result greater than or equal to 126 mg/dL suggests DIABETES MELLITUS per A.D.A. criteria. Please note revised GLUCOSE reference range effective 2017. LAB L501.1000 7-18 mg/dL Normal BUN 10 LAB L501.1100 0.55-1.02 mg/dL Normal CREAT,SERUM 0.77 Result Comment: The validity of the calculated GFR AND GFRAA in patients over 70 years has not been determined. Clinical correlation is essential. LAB L501.1110 >60 mL/min Normal EST GFR 84 Result Comment: Non- GFR Calc LAB L501.1115 >60 mL/min Normal EST GFR - AA 101 Result Comment: GFR Calc LAB L501.1300 10-20 RATIO Normal BUN/CRE 13.0 LAB L501.2200 8.5-10.1 mg/dL CA Normal 9.0 LAB L501.5300 136-145 mmol/L NA Normal 137 LAB L501.5600 3.5-5.1 mmol/L K Normal 4.1 LAB L501.5900 98-107 mmol/L CL Normal 105 LAB L501.6100 21.0-32.0 mmol/L Normal CO2 25.0 LAB L501.6200 5-15 Normal GAP 7 Performed By: #### L500.2500, L500.4100 #### [facility] [address] [place], [address] LIPID PROFILE Collected: 12/08/2017 Status: F Source: [place] 6:00 AM [facility] REPOSITORY TYPE CODE TESTS RESULT OUT OF RANGE REFERENCE UNITS LAB L501.4900 200 mg/dL High CHOL 204 Result Comment: <200 mg/dL Desirable 200-240 mg/dL Borderline >240 mg/dL High Risk LAB L501.5000 mg/dL Normal TRIG 195 Result Comment: The drugs N-Acetylcysteine and Metamizole may falsely depress this assay. Serum Triglycerides Reference Interval Normal <150 mg/dL Borderline high 150 - 199 mg/dL High 200 - 499 mg/dL Very High > or = 500 mg/dL LAB L501.6400 mg/dL Low HDL 31 Result Comment: The drugs N-Acetylcysteine and Metamizole may falsely depress this assay. Reference Range HDL <40 mg/dL Low HDL Cholesterol HDL >or= 60 mg/dL High HDL Cholesterol LAB L501.6500 0-130 mg/dL High LDL 134 LAB L501.6600 5-40 mg/dL Normal VLDL 39 Performed By: #### L500.2500, L500.4100 #### [facility] [address] [place], [place], [id number] TROPONIN-I Collected: 12/07/2017 Status: F Source: [place] 10:54 PM [facility] REPOSITORY Order Comment: 'TROP' Serial specimen #1, #2 or #3: 3 TYPE CODE TESTS RESULT OUT OF RANGE REFERENCE UNITS LAB L501.4010 <0.045 ng/mL Normal < 0.015 TROPONIN-I Result Comment: TROPONIN-I EXPECTED VALUES <0.045 Negative 0.045 - 0.590 Consistent with Cardiac Damage > OR = 0.600 Critical Value Not every elevated troponin is indicative of AL. These values should be used with clinical judgement in examining the patient's clinical picture for diagnosis. To establish a diagnosis of AL versus myocardial injury, there must be a demonstrated rise and/or fall in the troponin values, in addition to ischemic symptoms, EKG changes, new regional wall motion abnormality, and/or angiographical evidence. PLEASE NOTE: REFERENCE RANGES EDITED 17 Performed By: #### L501.4010 #### [facility] [address] [place], [address] HISTORY AND PHYSICAL Observed: 12/07/2017 Status: F Source: [place] EXAM 6:28 PM [facility] REPOSITORY [facility] Medical Records Department [address] [place] [address] History and Physical 12/07/17 1811 MR#: [id number] Acct: [id number] Name: SONDRA SPENCER Rep #: [id number] : 1965 52 From: Elsa Van MD PCP: Viri Rowland MD Status: ADM JULES Y Location: [place] [address] Problem List (1) Aortocoronary bypass status Status: Chronic Comment: CABG x5 - ARMSTRONG to :AD, SVG to 1stmarginal branch of the CX, SVG to distal CX, SVG to PDA, and SVG to posterolateral RCA 10/01/15 (2) Atherosclerotic heart disease of [place] coronary artery without angina pectoris Status: Chronic Comment: CABG x5 - ARMSTRONG to :AD, SVG to 1stmarginal branch of the CX, SVG to distal CX, SVG to PDA, and SVG to posterolateral RCA 10/01/15 (3) Tobacco abuse Status: Chronic (4) Hyperlipidemia Status: Chronic History of Present Illness Date of Admission: 12/07/17 Chief Complaint: Chest pain. The patient is a 52 year old F with past medical history as mentioned above presented to the emergency room because of chest pain. Her symptoms started last night after she had an episode of vomiting, started having chest pain, located at the right upper chest, described as pressure like pain, 7 out of 10 in severity, intermittent since last night, radiates to her right shoulder, associated with mild shortness of breath and nausea and without aggravating or relieving factors. It has been intermittent since last night and she mentioned that this pain similar to the pain that she had 2 years ago that ended up with CABG x5. She mentioned that years ago, she had this chest pain on the right side, had stress test that was unremarkable. She continued to have this right upper chest pain for which cardiac CT was done and eventually, she underwent cardiac catheterization and found to have triple- vessel disease and she underwent CABG. Since that time, she has not been following up with cardiology and she has been only taking aspirin. In the emergency department, her vital signs were stable. Her routine blood work was unremarkable except for blood sugar of 144. Her EKG revealed normal sinus rhythm with septal T wave inversion in lateral chest leads, no acute ST elevation. Troponin is negative. Chest x-ray showed no acute findings. She is being admitted for chest pain for evaluation. Past Medical History Past Medical History (Chronic Problems): Chronic Problems (Last Updated 11/23/17 @ 17:19 by Farzana Wray) Aortocoronary bypass status (Chronic 10/01/15) CABG x5 - ARMSTRONG to :AD, SVG to 1stmarginal branch of the CX, SVG to distal CX, SVG to PDA, and SVG to posterolateral RCA 10/01/15 Atherosclerotic heart disease of [place] coronary artery without angina pectoris (Chronic) CABG x5 - ARMSTRONG to :AD, SVG to 1stmarginal branch of the CX, SVG to distal CX, SVG to PDA, and SVG to posterolateral RCA 10/01/15 Tobacco abuse (Chronic) Hyperlipidemia (Chronic) History of AL (myocardial infarction) (Chronic) Medical History: Medical History (Last Updated 11/23/17 @ 17:19 by Farzana Wray) Atherosclerotic heart disease of [place] coronary artery without angina pectoris (Chronic) I25.10 CABG x5 - ARMSTRONG to :AD, SVG to 1stmarginal branch of the CX, SVG to distal CX, SVG to PDA, and SVG to posterolateral RCA 10/01/15 Tobacco abuse (Chronic) Z72.0 Hyperlipidemia (Chronic) E78.5 History of AL (myocardial infarction) (Chronic) I25.2 Allergies Penicillins Allergy (Verified 12/07/17 16:11) Hives Home Medications: Ambulatory Orders Medication Instructions Recorded Aspirin [Aspirin, Baby] 81 mg PO QHS 01/05/17 Evolocumab [Repatha Sureclick] 140 mg SQ Q14D 12/07/17 Surgical History: Surgical History (Last Updated 11/23/17 @ 17:21 by Farzana Wray) Aortocoronary bypass status (Chronic) Onset Date: 10/01/15 Z95.1 CABG x5 - ARMSTRONG to :AD, SVG to 1stmarginal branch of the CX, SVG to distal CX, SVG to PDA, and SVG to posterolateral RCA 10/01/15 H/O arthroscopy of right knee Z98.890 H/O section Z98.891 History of laminectomy Z98.890 Surgical History: - - The patient is undergone lumbar laminectomy on 2 occasions in the past. section was performed 2 in the past. She is undergone right knee arthroscopy on 3 occasions. 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 Patient's mother at age of 83 with a history of dementia and cerebrovascular accident. Paternal Family History: Family History (Last Updated 11/23/17 @ 17:22 by Farzana Wray) Father CAD (coronary artery disease) Mother CVA (cerebral vascular accident) History Items: - - not Pertinent to presenting complaint Review of Systems Constitutional: Denies: Anorexia, Chills, Fever, Weakness Eyes: Denies: Blurred vision, Double vision, Drainage, Redness HEENT: Denies: Difficulty Hearing, Ear Pain, Eye Pain, Nasal Congestion, Sore Throat Cardiovascular: Reports: Chest Pain, Chest Pressure. Denies: Edema, Heaviness, Light Headedness, Palpitations, Syncope Respiratory: Reports: Shortness of Breath, Shortness of breath upon exertion. Denies: Cough, Pleuritic Pain, Sputum production, Wheezing Gastrointestinal: Reports: Nausea, Vomiting. Denies: Abdominal Pain, Constipation, Diarrhea Genitourinary: Denies: Dysuria, Frequency, Hematuria Musculoskeletal: Denies: Arm Pain, Back Pain, Foot Pain Skin: Denies: Dryness, Rash Neurological: Denies: Balance problems, Headaches, Incoordination, Numbness Psychiatric: Denies: Anxiety, Depression Endocrine: Denies: Change in Body Habitus, Polydipsia VTE Information - Inpt Only VTE Present on Admission: No VTE Mechan Device Prophylaxis: None VTE Pharm Prophylaxis ordered?: Yes - Physical Exam General: Alert, Oriented x3, Cooperative, No apparent distress HEENT: Atraumatic, PERRLA, EOMI, Normocephalic Oral: Moist Mucosa, No Gingival or Mucosal Lesions/ Ulcerations Neck: Supple, No JVD, Negative Carotid Bruits, Trachea Midline, Thyroid Normal Size and Texture Lungs: Clear to auscultation, No rhonchi, No wheeze, No rales, Diminished Cardiovascular: Regular rate, Regular Rhythm, Normal S1, Normal S2, No murmurs, PMI Normal Abdomen: Bowel Sounds Present, Soft, Non Tender, Non-Distended, No Hepato-splenomegaly Extremities: No clubbing, No cyanosis, No edema Skin: No rashes, No breakdown Lymphatic: No Cervical, Supraclavicular, or Inguinal Adenopathy Neurological: Cranial nerves II-XII grossly intact, Motor Exam 5/5 strength throughout Psych/Mental Status: Normal Affect, Appropriate, Alert and oriented to time, place, person, mood and affect Vital Signs Temp Pulse Resp BP Pulse Ox 98.5 F 91 22 H 124/78 H 95 12/07/17 16:11 12/07/17 18:07 12/07/17 18:07 12/07/17 18:07 12/07/17 18:07 Oxygen Flow Rate (L/min) 2 Oxygen Delivery Method Nasal Cannula Weight: 228 lb 13.437 oz Body Mass Index (BMI) 39.2 Laboratory Tests Past 24 Hrs WBC 7.5 RBC 4.47 Hgb 13.4 Hct 41.6 MCV 93.1 MCH 30.0 Clinical Impression(s) from Imaging Studies Chest X-Ray 12/07/17 16:29 IMPRESSION: No acute cardiopulmonary process. Electronically Signed: Sofiya Valladares MD at 17:14 EDT Tel , Service support , Assessment/Plan This is a 50 years old female patient presented to the ER because of chest pain and she is being admitted for evaluation. #1 chest pain: Atypical. Risk factors are history of CAD status post CABG, hyperlipidemia and smoking. She had a clinical presentation for multivessel CAD back in 2015 and ended up with CABG 5. At that time, she had similar right sided upper chest pain. At this time, EKG revealed inverted T-wave in lateral chest leads, no acute ST elevation. Troponin is negative. Chest x-ray showed no acute findings. Patient has been taking only aspirin, but not following up with cardiology. Plan: Admit to PCU for observation, cardiac monitoring, serial cardiac enzymes, repeat EKG tomorrow morning, continue aspirin, start metoprolol and lisinopril, start Lipitor, cardiology consult, fasting lipid profile. #2 CAD status post CABG: This was back in 2015, has been only on aspirin. She is not following up with cardiology. Plan as above to start beta-blockers, RIMMA inhibitors, statins, fasting lipid profile, cardiology consult. #3 hyperlipidemia: She has been on Evolocumab injections every 2 weeks. Plan to start him on Lipitor, check lipid profile in the morning. #4 tobacco abuse. #5 DVT prophylaxis: Subcu Lovenox. This note was generated with FirstRain dictation software. It may contain incorrect words, spelling, and punctuation that were not noted in checking the note before signing. Code Visit OBSV E AND M: 16833 Initial observation care L3 12/07/17 1828 <Electronically signed by Elsa Van MD> Date Elsa Van MD Cosigner Signature: Date (if applicable) CC: Elsa Van; Viri Rowland MD Signed EMERGENCY DEPARTMENT Observed: 12/07/2017 Status: F Source: KYLE SUMMARY 5:53 PM [facility] REPOSITORY [facility] Medical Records Department [address] [place] [address] Emergency Department Summary 12/07/17 1650 MR#: [id number] Acct: [id number] Name: SONDRA SPENCER Rep #: [id number] : 1965 52 From: Iris Espinosa MD PCP: Viri Rowland MD Status: REG ER - ER Visit Summary Date of Service: 12/07/17 Chief Complaint: Chest pain History of Present Illness: The patient is a 52 F with chest pain intermittent since yesterday. She has chest pain, shortness of breath, nausea. She denies diaphoresis. She states at worst it is 8 out of 10, currently 0 out of 10. She has a history of a previous bypass surgery 2015. History of high cholesterol. She takes aspirin daily. She is a smoker. Physical Examination: Vitals are stable. Patient is afebrile. Alert no acute distress. HEENT exam is unremarkable. Neck is supple. Lungs are clear and equal bilaterally. Heart is regular rate and rhythm. Abdomen is soft nontender nondistended. Extremities are unremarkable. Skin is warm and dry. No focal neurologic deficit. Remainder of exam is unremarkable. Emergency Department Course and Treatment: Patient is given aspirin. EKG is sinus rate of 94 with lateral T wave inversion. Chest x-ray shows no acute process. CBC, chemistries unremarkable other than glucose 144. Troponin is negative. She is pain-free in the emergency room. Will discuss with hospitalist for observation. Disposition: Observation Impression: Chest pain This note was generated with FirstRain dictation software. It may contain incorrect words, spelling, and punctuation that were not noted in review of the chart prior to signing ED Disposition - Plan for ED Patient: Chief Complaint: Chest Pain Referrals: Viri Rowland MD [Primary Care Provider] - What to do if you have Problems For any increased pain, shortness of breath, bleeding, nausea or vomiting, chest pain, or any unexpected problems, contact your Primary Care Provider. Call [facility] ([phone]) or report to the closest Emergency Room. Call 911 if necessary. 12/07/17 3127 <Electronically signed by Iris Espinosa MD> Date Iris Espinosa MD Cosigner Signature (If Indicated): Date CC: Viri Rowland MD CHEST 1 VIEW Observed: 12/07/2017 Status: F Source: KYLE (PORTABLE) 4:30 PM [facility] REPOSITORY [facility] Imaging Services [address] [place] [address] Chest 1 View (Portable) MR#: [id number] Acct: [id number] Name: SONDRA SPENCER Rep #: [id number] : 1965 F 52 From: Sofiya Valladares MD PCP: Viri Rowland MD Status: REG ER Study: Chest 1 View (Portable) Date of Exam: 12/07/17 Exam# [id number] Ordering Dr: Provider, Ed P. STUDY: X-RAY CHEST REASON FOR EXAM: Female, 52 years old. Chest pain. TECHNIQUE: Portable frontal. COMPARISON: April 23, 2015 FINDINGS: There is no new focal consolidation. Normal size heart. Normal mediastinum and silke. Normal visualized pulmonary arteries. Normal visualized aortic arch and descending thoracic aorta. Normal visualized thoracic spine. Normal visualized ribs, clavicles, and shoulders. There is no demonstrated abnormality of the visualized soft tissue structures of the upper abdomen. RAD/Chest 1 View (Portable) IMPRESSION: No acute cardiopulmonary process. Electronically Signed: Sofiya Valladares MD at 17:14 EDT Tel , Service support , CC: ED PHYSICIAN PROVIDER; Viri Rowland MD Advertising Coordinator: Signed CBC W/DIFF, AUTOMATED Collected: 12/07/2017 Status: F Source: [place] 4:25 PM [facility] REPOSITORY TYPE CODE TESTS RESULT OUT OF RANGE REFERENCE UNITS LAB L100.1000 4.4-11.0 K/mm3 Normal WBC 7.5 LAB L100.1200 4.2-5.4 M/mm3 Normal RBC 4.47 LAB L100.1300 12.0-15.0 g/dl Normal HGB 13.4 LAB L100.1400 37-47 % Normal HCT 41.6 LAB L100.1500 81-99 fL Normal MCV 93.1 LAB L100.1600 27.0-32.0 pg Normal MCH 30.0 LAB L100.1700 32-36 g/gl Normal MCHC 32.2 LAB L100.1810 11.6-14.6 % Normal RDW CV 14.6 LAB L100.1820 35.1-43.9 fl High RDW SD 49.5 LAB L100.1900 150-450 K/mm3 Normal PLT 235 LAB L100.2000 6.2-12.0 fl Normal MPV 10.5 LAB L100.2100 47-70 % Normal NEUT% 60.2 LAB L100.2200 19-41 % Normal LY% 30.5 LAB L100.2300 0-10 % Normal MONO% 6.8 LAB L100.2400 0-5 % Normal EO% 2.3 LAB L100.2500 0-1 % Normal BASO% 0.1 LAB L100.2550 0.0-0.9 % Normal IM GRAN % 0.100 Result Comment: IG% - Immature Granulocytes (promyelocytes, myelocytes and metamyelocytes) > 1% indicates that a LEFT SHIFT is Present. LAB L100.2620 2.0-7.7 X10 3/uL Normal Absolute Neut 4.5 LAB L100.2720 0.83-4.51 X10 3/ul Normal Absolute Lymph 2.30 Performed By: #### L100.0100 #### [facility] [address] [place], [address] BASIC METABOLIC Collected: 12/07/2017 Status: F Source: KYLE PROFILE (BMP) 4:25 PM [facility] REPOSITORY TYPE CODE TESTS RESULT OUT OF RANGE REFERENCE UNITS LAB L501.0100 74-106 mg/dL High GLU 144 Result Comment: Fasting Glucose result greater than or equal to 126 mg/dL suggests DIABETES MELLITUS per A.D.A. criteria. Please note revised GLUCOSE reference range effective 2017. LAB L501.1000 7-18 mg/dL Normal BUN 10 LAB L501.1100 0.55-1.02 mg/dL Normal CREAT,SERUM 0.88 Result Comment: The validity of the calculated GFR AND GFRAA in patients over 70 years has not been determined. Clinical correlation is essential. LAB L501.1110 >60 mL/min Normal EST GFR 72 Result Comment: Non- GFR Calc LAB L501.1115 >60 mL/min Normal EST GFR - AA 87 Result Comment: GFR Calc LAB L501.1300 10-20 RATIO Normal BUN/CRE 11.3 LAB L501.2200 8.5-10.1 mg/dL CA Normal 9.1 LAB L501.5300 136-145 mmol/L NA Normal 140 LAB L501.5600 3.5-5.1 mmol/L K Normal 4.0 LAB L501.5900 98-107 mmol/L CL Normal 107 LAB L501.6100 21.0-32.0 mmol/L Normal CO2 26.0 LAB L501.6200 5-15 Normal GAP 7 Performed By: #### L500.2500, L501.4010 #### [facility] [address] [place], [address] TROPONIN-I Collected: 12/07/2017 Status: F Source: [place] 4:25 PM [facility] REPOSITORY TYPE CODE TESTS RESULT OUT OF RANGE REFERENCE UNITS LAB L501.4010 <0.045 ng/mL Normal < 0.015 TROPONIN-I Result Comment: TROPONIN-I EXPECTED VALUES <0.045 Negative 0.045 - 0.590 Consistent with Cardiac Damage > OR = 0.600 Critical Value Not every elevated troponin is indicative of AL. These values should be used with clinical judgement in examining the patient's clinical picture for diagnosis. To establish a diagnosis of AL versus myocardial injury, there must be a demonstrated rise and/or fall in the troponin values, in addition to ischemic symptoms, EKG changes, new regional wall motion abnormality, and/or angiographical evidence. PLEASE NOTE: REFERENCE RANGES EDITED 17 Performed By: #### L500.2500, L501.4010 #### [facility] [place], [address] [facility] Collected: 10/23/2017 Status: F Source: [place] 8:21 AM [facility] REPOSITORY TYPE CODE TESTS RESULT OUT OF REFERENCE UNITS RANGE LAB PROT(LOINC) 6.0-8.3 G/dL Total Protein 7.8 LAB ALB(LOINC) 3.5-5.0 G/dL Albumin Level 4.3 LAB GLB(LOINC) G/dL Globulin 3.5 LAB AG(LOINC) 1.1-2.5 ratio A/G Ratio 1.2 LAB BILT(LOINC) 0.2-1.0 mg/dL Bili Total 0.3 LAB BILAD(LOINC 0.1-0.5 mg/dL ) Bili Direct 0.1 LAB BILI(LOINC) mg/dL Bili Indirect 0.2 LAB AP(LOINC) 40-135 IU/L High Alk Phos 145 LAB AST(LOINC) 10-40 IU/L High AST/SGOT 62 LAB ALT(LOINC) 10-35 IU/L High ALT/SGPT 45 Performed By: #### [facility], LIPID, A1C #### [address] [address] LIPID Collected: 10/23/2017 Status: F Source: YON[place]Powered 8:21 AM [facility] REPOSITORY TYPE CODE TESTS RESULT OUT OF REFERENCE UNITS RANGE LAB CHOL(LOINC 131-200 mg/dL ) Cholesterol High 349 Result Comment: Cholesterol Reference Interval: Less than 200 Desirable 200-239 Borderline high risk 240 and above High risk LAB TRIG(LOINC) 40-150 mg/dL Triglycerides High 225 Result Comment: Triglyceride Reference Interval: Less than 150 Normal 150-199 Borderline high risk 200-499 High risk 500 or higher Very high risk LAB HD(LOINC) 35-90 mg/dL HDL Cholesterol 41 Result Comment: HDL Reference Interval: Less than 40 Low - high risk 60 or above Optimal/lowers risk LAB LDL(LOINC) 0-130 mg/dL LDL High Cholesterol 263 Result Comment: LDL is a calculated result and requires a 12-hr fast. LDL Reference Interval: Less than 100 Optimal 100-129 Near or above optimal 130-159 Borderline high risk 160-189 High risk 190 and above Very high risk Performed By: #### HFP, LIPID, A1C #### [address] [place], [place] [address] A1C Collected: 10/23/2017 Status: F Source: [place] 8:21 AM [facility] REPOSITORY TYPE CODE TESTS RESULT OUT OF RANGE REFERENCE UNITS LAB A1C(LOINC) 4.8-5.9 % High Hgb A1c 7.1 Performed By: #### HFP, LIPID, A1C #### [address] [place], [place] [address] CBC Collected: 08/16/2017 Status: F Source: [place] 10:40 AM [facility] REPOSITORY TYPE CODE TESTS RESULT OUT OF REFERENCE UNITS RANGE LAB WBC(LOINC) 4.60-10.80 10 3/mcL WBC 7.50 LAB RBCCT(LOINC 4.20-5.40 10 6/mcL ) RBC 4.41 LAB HGB(LOINC) 12.0-16.0 G/dL Hgb 13.4 LAB HCT(LOINC) 37.0-47.0 % Hct 40.9 LAB MCV(LOINC) 80.0-94.0 fL MCV 92.6 LAB MCH(LOINC) 27.0-31.2 pg MCH 30.4 LAB MCHC(LOINC) 33.0-37.0 G/dL Low MCHC 32.8 LAB RDW(LOINC) 11.5-14.5 % High RDW 15.5 LAB PLT(LOINC) 130-400 10 3/mcL Platelet 285 LAB MPV(LOINC) 7.4-10.4 fL MPV 9.2 Performed By: #### CBC, ADIFF, ANEU, CMP, LIPID, GFR, TSH, A1C #### [address] [place], [place] [address] .AUTO DIFF Collected: 08/16/2017 Status: F Source: [place] 10:40 AM [facility] REPOSITORY TYPE CODE TESTS RESULT OUT OF REFERENCE UNITS RANGE LAB KESHA(LOINC) 37.0-80.0 % Neutrophil % 62.7 LAB LYM(LOINC) 10.0-50.0 % Lymphocyte % 27.9 LAB MON(LOINC) 1.7-13.0 % Monocyte % 6.3 LAB EO(LOINC) 0.0-7.0 % Eosinophil % 2.6 LAB BAS(LOINC) 0.0-2.5 % Basophil % 0.5 LAB ABLYM(LOIN 0.77-3.85 10 3/mcL C) Lymphocyte, 2.10 Absolute LAB MARIA FERNANDA(LOINC 0.15-1.00 10 3/mcL ) Monocyte, 0.50 Absolute LAB AEOS(LOINC 0.00-0.40 10 3/mcL ) Eosinophil, 0.20 Absolute LAB ABAS(LOINC 0.00-0.19 10 3/mcL ) Basophil, 0.00 Absolute Performed By: #### CBC, ADIFF, ANEU, CMP, LIPID, GFR, TSH, A1C #### [address] [address] .NEUABS Collected: 08/16/2017 Status: F Source: [facility] 10:40 AM [facility] REPOSITORY TYPE CODE TESTS RESULT OUT OF REFERENCE UNITS RANGE LAB ANEU(LOINC) 2.85-6.16 10 3/mcL Neutrophil, 4.70 Absolute Performed By: #### CBC, ADIFF, ANEU, CMP, LIPID, GFR, TSH, A1C #### [address] [address] CMP Collected: 08/16/2017 Status: F Source: [facility] 10:40 AM [facility] REPOSITORY TYPE CODE TESTS RESULT OUT OF REFERENCE UNITS RANGE LAB 1547-9 70-105 mg/dL GLUCOSE High 110 LAB NA(LOINC) 136-146 mEq/L Sodium Level 139 LAB K(LOINC) 3.5-5.1 mEq/L Potassium Level 4.8 LAB CL(LOINC) 98-107 mEq/L Chloride 101 LAB CO2(LOINC) 22-29 mEq/L CO2 27 LAB EBAL(LOINC mEq/L ) Electrolyte Balance 11.0 LAB BUN(LOINC) 7.0-18.0 mg/dL BUN 11.0 LAB CRE(LOINC) 0.6-1.2 mg/dL Creatinine Lvl (s) 0.7 LAB BC(LOINC) 7-27 ratio BUN/Creatinine 16 Ratio LAB CA(LOINC) 8.4-10.2 mg/dL Calcium Lvl 9.7 LAB PROT(LOINC 6.0-8.3 G/dL ) Total Protein 8.0 LAB ALB(LOINC) 3.5-5.0 G/dL Albumin Level 4.6 LAB GLB(LOINC) G/dL Globulin 3.4 LAB AG(LOINC) 1.1-2.5 ratio A/G Ratio 1.4 LAB BILT(LOINC 0.2-1.0 mg/dL ) Bili Total 0.2 LAB AP(LOINC) 40-135 IU/L Alk Phos High 153 LAB AST(LOINC) 10-40 IU/L AST/SGOT High 74 LAB ALT(LOINC) 10-35 IU/L ALT/SGPT High 42 Performed By: #### CBC, ADIFF, ANEU, CMP, LIPID, GFR, TSH, A1C #### [place] [place], [place] [address] LIPID Collected: 08/16/2017 Status: F Source: [place] 10:40 AM [facility] REPOSIT[facility] TYPE CODE TESTS RESULT OUT OF REFERENCE UNITS RANGE LAB CHOL(LOINC 131-200 mg/dL ) Cholesterol High 201 Result Comment: Cholesterol Reference Interval: Less than 200 Desirable 200-239 Borderline high risk 240 and above High risk LAB TRIG(LOINC) 40-150 mg/dL Triglycerides High 179 Result Comment: Triglyceride Reference Interval: Less than 150 Normal 150-199 Borderline high risk 200-499 High risk 500 or higher Very high risk LAB HD(LOINC) 35-90 mg/dL HDL Cholesterol 39 Result Comment: HDL Reference Interval: Less than 40 Low - high risk 60 or above Optimal/lowers risk LAB LDL(LOINC) 0-130 mg/dL LDL Cholesterol 126 Result Comment: LDL is a calculated result and requires a 12-hr fast. LDL Reference Interval: Less than 100 Optimal 100-129 Near or above optimal 130-159 Borderline high risk 160-189 High risk 190 and above Very high risk Performed By: #### CBC, ADIFF, ANEU, CMP, LIPID, GFR, TSH, A1C #### [address] [place], [place] [address] .GFR Collected: 08/16/2017 Status: F Source: [place] 10:40 AM [facility] REPOSITORY TYPE CODE TESTS RESULT OUT OF REFERENCE UNITS RANGE LAB GFRAA(LOINC ml/min/1.73 ) sqm GFR 104 [place] Result Comment: GFR Population mean for , Non- Americans Ages 20-29 = 116 mL/min/1.73 sq.m. Ages 30-39 = 107 mL/min/1.73 sq.m. Ages 40-49 = 99 mL/min/1.73 sq.m. Ages 50-59 = 93 mL/min/1.73 sq.m. Ages 60-69 = 85 mL/min/1.73 sq.m. Ages 70+ = 75 mL/min/1.73 sq.m. Chronic Kidney Disease: Less than 60 mL/min/1.73 square meters End Stage Renal Disease: Less than 15 mL/min/1.73 square meters LAB GFRNO(LOINC) ml/min/1.73sqm GFR Non- >60 Result Comment: GFR Population mean for , Non- Americans Ages 20-29 = 116 mL/min/1.73 sq.m. Ages 30-39 = 107 mL/min/1.73 sq.m. Ages 40-49 = 99 mL/min/1.73 sq.m. Ages 50-59 = 93 mL/min/1.73 sq.m. Ages 60-69 = 85 mL/min/1.73 sq.m. Ages 70+ = 75 mL/min/1.73 sq.m. Chronic Kidney Disease: Less than 60 mL/min/1.73 square meters End Stage Renal Disease: Less than 15 mL/min/1.73 square meters Performed By: #### CBC, ADIFF, ANEU, CMP, LIPID, GFR, TSH, A1C #### [address] [place], [place] [address] TSH Collected: 08/16/2017 Status: F Source: [place] 10:40 AM [facility] REPOSITORY TYPE CODE TESTS RESULT OUT OF RANGE REFERENCE UNITS LAB TSH(LOINC) 0.27-4.20 mcIU/mL TSH 1.59 Performed By: #### CBC, ADIFF, ANEU, CMP, LIPID, GFR, TSH, A1C #### [facility] [address] [place], [place] [address] A1C Collected: 08/16/2017 Status: F Source: [facility] 10:40 AM [facility] REPOSITORY TYPE CODE TESTS RESULT OUT OF RANGE REFERENCE UNITS LAB A1C(LOINC) 4.8-5.9 % High Hgb A1c 6.4 Performed By: #### CBC, ADIFF, ANEU, CMP, LIPID, GFR, TSH, A1C #### [address] [place], [place] [address] ALLERGIES ALLERGIES DATE TYPE / CODE NAME / CODE REACTION SEVERITY SOURCE 12/07/2017 Drug Penicillins/ Hives Unknown [facility] Allergy/4160 [id number]( Hospital [address](SNOMED XNORM) Repository CT) ENCOUNTERS ENCOUNTERS ADMIT/DISCHARGE ACCOUNT NUMBER ADMITTING ENCOUNTER LOCATION SOURCE CLASS 07/13/2018 [id number] Ambulatory [facility] ding:MTLAB Repository 04/12/2018/04/12/20 [id number] Ambulatory [address] ding:[facility] Repository 12/28/2017 [id number] Inpatient [facility] Repository ng:H.SD 12/08/2017/12/09/19 [id number] Ambulatory BMSBuilding: [place] [facility] Repository 12/07/2017/12/09/19 [id number] [facility], Ambulatory [address] ding:[facility]URoom Repository : [id number]: 1 12/07/2017 [id number] [facility], Ambulatory BMSBuilding: Kyle Ghasem [facility] Repository 12/07/2017 [id number] [facility] 12/07/2017 [id number] [facility], Ambulatory BMSBuilding: Kyle Ghasem BMS.[facility] Repository 11/25/2017 [id number] Ambulatory BMSBuilding: Salyer BMS.[facility] Repository 11/23/2017 [id number] Ambulatory BMSBuilding: Kyle BMS.[facility] Repository 10/23/2017/10/24/19 [id number] Ambulatory [address] ding:OLAB [facility] Repository 08/16/2017/08/16/19 [id number] Ambulatory [address] ding:[facility] Repository PAYERS PAYERS ENCOUNTER GUARANTOR PAYER SUBSCRIBER SOURCE 07/13/2018 SONDRA Lira [id number] Primary SONDRA K Kyle S [facility] Insurance:AULTCAREPol PERRYDOB: [place], [place] icy Number: [id number] [address]Kbz: 330 [id number] Repository [phone] () Date:4439-23-66[address] [address]TK: 07/13/2018 Secondary NOT GIVENUNK Kyle Insurance:SELF PAY [facility] Number: Effective Repository Date:2018-07-13 04/12/2018 SONDRA K Primary SONDRA Soraya [facility] PERRYDOB: Insurance:AULTCARE PERRYDOB: [facility] [id number] S [id number] Number: [id number] [facility] [id number] [address] [place] [address]Rnf: Date:2018-04-12 - [place], [place] [id number] [address]Gsp: [phone]) ()Tel: ([phone]) Name:[facility] [phone] () [address] [place] [address] ()Tel: [phone]: [phone] 12/28/2017 SONDRANANCY [address] Primary SONDRANANCY BIANCHI [facility], Insurance:AULTCAREPol [facility] [address]Lyv: icy Number: Repository [id number] () Date:7184-66-94CH [address] [place] [address]TB: 12/08/2017 Sondra Love Primary Sondranancy [id number] Insurance:AULTCAREPol PerryDOB: [facility] Number: [id number] [address]Kwa: [id number] Repository Date:2728-95-10OH [address] () [address], [place] [address]DH: 12/08/2017 Secondary NOT GIVENUNK Kyle Insurance:SELF PAY [facility] Number: Effective Repository Date:2017-12-08 12/07/2017 Sondra Aleman Primary Sondra [id number] Insurance:AULTCAREPol PerryDOB: [facility] Number: [id number] Valley Hospital [address]Baw: [id number] Repository Date:8507-61-96[address] () [address], [place] [address]FG: 12/07/2017 Secondary NOT GIVENUNK Kyle Insurance:SELF PAY [facility] Number: Effective Repository Date:2017-12-07 12/07/2017 Sondra Aleman Primary Sondra Aleman [id number] Insurance:AULTCAREPol PerryDOB: [facility] Number: [id number] Valley Hospital [address]Gex: [id number] Repository Date:7066-14-25XR [address] () [address], [place] [address]XF: 12/07/2017 Secondary NOT GIVENUNK Kyle Insurance:SELF PAY [facility] Number: Effective Repository Date:2017-12-07 12/07/2017 Sondra Aleman Primary Sondra Aleman [id number] Insurance:AULTCAREPol PerryDOB: [facility] Number: [id number] Valley Hospital [address]Enc: [id number] Repository Date:3739-27-03RM [address] (HP) [address], [place] [address]BX: 12/07/2017 Secondary NOT GIVENUNK Salyer Insurance:SELF PAY [facility] Number: Effective Repository Date:2017-12-07 12/07/2017 Sondra Aleman Primary Sondra [id number] Insurance:AULTCAREPol PerryDOB: [facility] Number: [id number] Valley Hospital [address]Nri: [id number] Repository Date:0158-34-97KY [address] () [address], [place] [address]GG: 12/07/2017 Secondary NOT GIVENUNK Kyle Insurance:SELF PAY [facility] Number: Effective Repository Date:2017-12-07 11/25/2017 Sondra Aleman Primary Sondra [id number] Insurance:AULTCAREPol PerryDOB: [facility] Number: [id number] Valley Hospital [address]Ucg: [id number] Repository Date:4274-41-64YJ [address] () [address], [place] [address]XR: 11/25/2017 Secondary NOT GIVENUNK Salyer Insurance:SELF PAY [facility] Number: Effective Repository Date:2017-10-21 11/23/2017 Sondra Aleman Primary Sondra [id number] Insurance:AULTCAREPol PerryDOB: [facility] Number: [id number] Valley Hospital [address]Luk: [id number] Repository Date:0145-68-18DS [address] () [address], [place] [address]CS: 11/23/2017 Secondary NOT GIVENUNK Kyle Insurance:SELF PAY [facility] Number: Effective Repository Date:2017-11-23 10/23/2017 SONDRA Lira Primary SONDRA Lira [facility] PERRYDOB: Insurance:AULTCARE PERRYDOB: [facility] [id number] S [id number] Number: [id number] [facility] [id number] S [facility] [place] [address]Aqn: Date:2017-10-23 - [place], [place] 0498-55-82Ntma [address]Vux: ([phone]) (HP)Tel: ([phone]) Name:CPO [facility]54 [phone] (WP) [address] [place] [address] (HP)Tel: [phone]: ([phone] 08/16/2017 SONDRA K Hugh [facility] PERRYDOB: Insurance:[facility] PERRYDOB: [facility] [id number] [id number] Number: [id number] Repository [facility] JESSICA, [id number] S [facility] [address]Nec: Date:2017-08-16 - [place], [place] 6398-37-61Cvrn [address]Mgp: (330) (HP)Tel: ([phone]) Name:[facility]65[address] [phone] () [address] [place] [address] (HP)Tel: [phone]: [phone]
== END ==
PROVIDERS: Family Provider Family Medicine; PCP Family Medicine; Referring Provider Dermatology; Visit Provider Dermatology
DX: L73.2 Hidradenitis suppurativa (principal)
CPT/HCPCS: 36415; 80048; 80076; 85025; 86480; 86705; 86706; 86803; 87340

== ENCOUNTER → 2019-10-30 10:37 | Outpatient (CLI) | payer BC, SELFPAY ==
[2019-10-30 10:30] VITALS: BMI 38.8
--- NOTE | 2019-10-30 10:38 | RAD_ITS ---
STUDY: X-RAY - RIGHT KNEE REASON FOR EXAM: Female, 54 years old. LIMITED STUDY PER ORTHO. PAIN TECHNIQUE: 3 view(s) of the knee. COMPARISON: None. FINDINGS: Degenerative spur is seen along the medial condyle of the distal femur. Normal visualized proximal tibia and fibula. Normal proximal tibiofibular articulation. There is severe degenerative arthrosis of the medial femorotibial compartment with severe joint space narrowing. Normal lateral femorotibial compartment. Normal patellofemoral articulation. The soft tissue structures are unremarkable. RAD/Knee 1 or 2 Views IMPRESSION: Degenerative arthrosis. Degenerative spurring along the medial condyle of the distal femur. Electronically Signed: Rashawn Whalen, at 11:09 EDT , Service support ,
== END ==
PROVIDERS: PCP Family Medicine; Referring Provider Orthopaedic Surgery; Visit Provider Orthopaedic Surgery
DX: M25.561 Pain in right knee (principal)
CPT/HCPCS: 73560

== ENCOUNTER → 2020-06-03 09:00 | Outpatient (CLI) | payer BC, SELFPAY ==
[2019-10-30 10:30] VITALS: BMI 38.8
--- NOTE | 2020-06-10 10:48 | EKG12_ITS ---
Test Reason : PRE OP Blood Pressure : / mmHG Vent. Rate : 084 BPM Atrial Rate : 084 BPM P-R Int : 148 ms QRS Dur : 092 ms QT Int : 350 ms P-R-T Axes : -27 023 131 degrees QTc Int : 413 ms Normal sinus rhythm Septal infarct , age undetermined ST & T wave abnormality, consider lateral ischemia Abnormal ECG Confirmed by MIGUEL POTTER, ABDI ([id number]), fashion editor CHANTELLE CASAREZ ([id number]) on 06/11/2020 12:43:46 PM Referred By: Saravanan Luu Confirmed By:ABDI RIVERA MD
--- NOTE | 2020-06-10 11:08 | RAD_ITS ---
STUDY: X-RAY CHEST REASON FOR EXAM: Female, 54 years old. Preop knee replacement. History of CABG in 2016. Smoking history. Quit 2 years ago. TECHNIQUE: PA and lateral views of the chest. COMPARISON: 12/07/2017. FINDINGS: The lungs are clear and expanded. There is no demonstrated pleural abnormality. Normal size heart. Normal mediastinum and silke. Normal visualized pulmonary arteries. Normal visualized aortic arch and descending thoracic aorta. Normal visualized thoracic spine. Normal visualized ribs, clavicles, and shoulders. There is no demonstrated abnormality of the visualized soft tissue structures of the upper abdomen. RAD/Chest PA and Lateral IMPRESSION: No acute cardiopulmonary disease Electronically Signed: Zaid Amezcua DO at 22:56 EST Tel [phone], Service support ,
[2020-06-10 11:37] LABS: Hematocrit 35.1 % (37-47); Hemoglobin 11.2 g/dL (12.0-15.0); Mean Corp Hgb Conc 31.9 g/dL (32-36); Mean Corpuscular Volume 90.9 fL (81-99); Mean Platelet Vol. 10.1 fl (6.2-12.0); Platelet Count 218 K/mm3 (150-450); RBC Distribution Width CV 13.5 % (11.6-14.6); RBC Distribution Width SD 44.5 fl (35.1-43.9); Red Blood Count 3.86 M/mm3 (4.2-5.4); White Blood Count 5.8 K/mm3 (4.4-11.0)
[2020-06-10 11:52] LABS: Magnesium 2.1 mg/dL (1.6-2.6)
[2020-06-10 12:06] LABS: Anion Gap 5 (5-15); BUN 10 mg/dL (7-18); BUN/Creat Ratio 12.5 RATIO (10-20); Calcium,Total 9.4 mg/dL (8.5-10.1); Chloride 106 mmol/L (98-107); EST Glomerular Filtration Rate 79 mL/min (>60); Est Glom Filt Rate - Afr Amer 96 mL/min (>60); Glucose 133 mg/dL (74-106); Potassium 4.1 mmol/L (3.5-5.1); Sodium Level 137 mmol/L (136-145)
[2020-06-10 12:08] LABS: Hemoglobin A1c 7.6 % (3.8-5.6)
== END ==
LOC: PAT 07-05 13:42 → SDC 09-04 10:39
PROVIDERS: Anesthesiology; PCP Nurse Practitioner Primary Care; Referring Provider Orthopaedic Surgery; Visit Provider Orthopaedic Surgery
DX: Z01.812 Encounter for preprocedural laboratory examination (principal); M17.31 Unilateral post-traumatic osteoarthritis, right knee; T14.90XS Injury, unspecified, sequela; Y93.64 Activity, baseball; Z53.8 Procedure and treatment not carried out for other reasons; Z20.828 Contact with and (suspected) exposure to other viral communicable diseases; E11.9 Type 2 diabetes mellitus without complications; Z79.82 Long term (current) use of aspirin; Z79.899 Other long term (current) drug therapy; I25.2 Old myocardial infarction; Z87.891 Personal history of nicotine dependence; Z95.1 Presence of aortocoronary bypass graft
CPT/HCPCS: 36415; 71046; 80048; 83036; 83735; 85027; 87081; 87426; 93005; C9803

== ENCOUNTER → 2020-06-03 13:20 | Outpatient (CLI) | payer BC, SELFPAY ==
[2019-10-30 10:30] VITALS: BMI 38.8
--- NOTE | 2020-06-03 13:24 | CT_ITS ---
CT of the right lower extremity without contrast INDICATION: Preop knee arthroplasty, October protocol. TECHNIQUE: Multiple thin section axial CT images of the right hip, right knee, and right ankle were obtained and filmed in bone windows. Furthermore, multiple sagittal and coronal reconstructions were performed. Dose limiting techniques were utilized. COMPARISON: X-ray 10/30/2019 FINDINGS: No abnormal soft tissue mass, lymphadenopathy, fluid collection. No acute fracture or dislocation. No lytic or blastic lesions. Examination right hip joint demonstrates mild joint space narrowing and subchondral cyst formation consistent with mild arthrosis. Examination the knee joint demonstrates of the severe joint space narrowing and osteophyte formation the medial compartment consistent with severe arthrosis. There is moderate joint space narrowing and osteophyte formation lateral compartment consistent with moderate arthrosis. Mild patellofemoral compartment arthrosis. Examination the ankle joint is normal. CT/Extremity Lower without Contra IMPRESSION: 1. Severe knee arthrosis. 2. Mild hip arthrosis. Electronically Signed: Avila Nino MD at 16:02 EST Tel , Service support ,
== END ==
PROVIDERS: PCP Nurse Practitioner Primary Care; Referring Provider Orthopaedic Surgery; Visit Provider Orthopaedic Surgery
DX: M21.161 Varus deformity, not elsewhere classified, right knee (principal)
CPT/HCPCS: 73700

== ENCOUNTER 2020-09-12 16:55 | Outpatient (RCR) | payer BC, SELFPAY ==
[2019-10-30 10:30] VITALS: BMI 38.8
[2020-09-12] MEDS: COVID-19 VACC, MRNA(PFIZER)/PF 30 MCG/0.3 ML SYRINGE IM (14:24)
[2020-10-03] MEDS: COVID-19 VACC, MRNA(PFIZER)/PF 30 MCG/0.3 ML SYRINGE IM (13:56)
== END 2020-09-12 23:59 ==
LOC: IMMUN 16:55
PROVIDERS: PCP Nurse Practitioner Primary Care; Visit Provider Family Medicine
DX: Z23 Encounter for immunization (principal)
CPT/HCPCS: 0001A; 0002A; 91300

== ENCOUNTER → 2022-06-17 | Outpatient (CLI) | payer BC, SELFPAY ==
--- NOTE | 2022-06-17 06:22 | CDU_ITS ---
Reason For Study: Bruits Rt. Velocities/BP Lt. Velocities/BP Prox CCA 85/13.5 cm/sec. Prox CCA 105.2/19.4 cm/sec. Mid CCA 71.8/14.6 cm/sec. Mid CCA 86.9/19.4 cm/sec. Dist CCA 60.8/12.4 cm/sec. Dist CCA 81.8/17.9 cm/sec. Prox ICA 141.2/35.3 cm/sec. Prox ICA 91.9/22.5 cm/sec. Mid ICA 78.4/20.1 cm/sec. Mid ICA 62.6/18.8 cm/sec. Dist ICA 103.6/20.1 cm/sec. Dist ICA 86.4/20.6 cm/sec. Rt. ICA/CCA = 1.97. Lt. ICA/CCA = 1.06. Prox ECA 164.9/17 cm/sec. Prox ECA 163.1/22.6 cm/sec. Lt. Vert. 79.1/13.3 cm/sec. Right Extracranial There is heterogeneous, irregular atherosclerotic plaque noted in the right common carotid artery. There is heterogeneous, irregular atherosclerotic plaque noted in the right internal carotid artery. There is intimal thickening but no significant atherosclerotic plaque noted in the right external carotid artery. Bidirectional flow is noted in the right vertebral artery. Left Extracranial There is heterogeneous, irregular atherosclerotic plaque noted in the left common carotid artery. There is heterogeneous, irregular atherosclerotic plaque noted in the left internal carotid artery. There is heterogeneous, irregular atherosclerotic plaque noted in the left external carotid artery. Antegrade flow is noted in the left vertebral artery. Procedure Carotid Duplex 35167. This is a Carotid Duplex examination using B-mode, color flow and specral Doppler. Exam performed in department. VL/Carotid Duplex Ultrasound Interpretation Summary Moderate (50-69%) stenosis right extracranial internal carotid. Mild (<50%) stenosis left extracranial internal carotid. The Right vertebral flow is bidirectional. The Left vertebral is patent and antegrade. Ordering Physician: Jeff Kyle Referring Physician: Rosario Walters Performed By: Uzma Parra RVT
--- NOTE | 2022-06-17 09:37 | STRESSREP ---
Stress Test Report Date: 06-17-2022 Procedure: Pharmacologic stress nuclear imaging study Indications: CAD; status post CABG Consent: Per the patient Procedure: The patient underwent pharmacologic (Regadenoson 0.4mg ) evaluation with a peak heart rate of 118 beats per minute (71%predicted maximal heart rate) and a resting blood pressure of 162/88 mmHg and a peak blood pressure of 164/60 mmHg. The baseline ECG demonstrated normal sinus rhythm; nonspecific ST/T wave abnormality. The peak pharmacologic ECG demonstrated continued nonspecific ST/T wave abnormality. There were no cardiac dysrhythmias pretest, during pharmacologic infusion, or recovery. There was no complaint of chest discomfort during pharmacologic infusion or recovery. The examination was discontinued secondary to completion of protocol. Impression: 1. Pharmacologic (Regadenoson) evaluation 2. Peak pharmacologic ECG with continued sinus rhythm with nonspecific ST/T wave abnormality. 3. There were no cardiac dysrhythmias pretest, during pharmacologic infusion, or recovery. 4. Nuclear images pending Myocardial perfusion imaging study: Technique: The patient was injected with 15.0 millicuries of technetium 99m Cardiolite and subsequently rest SPECT Cardiolite nuclear imaging was obtained in the horizontal long, vertical long, and short axis views. The patient underwent pharmacologic (Regadenoson) evaluation with a peak heart rate of 118 beats per minute (71% percent predicted maximal heart rate) and a resting blood pressure of 162/88 mmHg and a peak blood pressure of 164/6 mmHg. The patient was injected with 45.0 millicuries of technetium 99m Cardiolite and subsequently stress SPECT Cardiolite nuclear imaging was obtained in the horizontal long, vertical long, and short axis views. A gated Cardiolite study at peak stress was obtained. Interpretation: Rest and stress SPECT Cardiolite nuclear imaging status post realignment, normalization, and attenuation correction demonstrate relative uniform tracer uptake and myocardial perfusion appearing within normal limits. There is end systolic thickening and brightening. The gated Cardiolite study demonstrates myocardial thickening and inward wall motion. The reported LVEF is 68%. Impression: 1. Rest and stress SPECT Cardiolite nuclear imaging demonstrate relative uniform tracer uptake and myocardial perfusion appearing within normal limits. 2. The gated Cardiolite study reports an LVEF of 68%. This note was generated with [employer] software. It may contain incorrect words, spelling, and punctuation that were not noted in checking the note before signing.
== END | disposition home or self-care (01) ==
PROVIDERS: PCP Nurse Practitioner Primary Care; Referring Provider Internal Medicine Cardiovascular Disease; Visit Provider Internal Medicine Cardiovascular Disease
DX: I65.23 Occlusion and stenosis of bilateral carotid arteries (principal); Z95.1 Presence of aortocoronary bypass graft; I25.10 Atherosclerotic heart disease of native coronary artery without angina pectoris; R09.89 Other specified symptoms and signs involving the circulatory and respiratory systems; I35.8 Other nonrheumatic aortic valve disorders; E78.2 Mixed hyperlipidemia
CPT/HCPCS: 78452; 93017; 93880; A9500; A4216; J2785

== ENCOUNTER → 2024-05-22 | Outpatient (CLI) | payer BC, SELFPAY ==
--- NOTE | 2024-05-22 | CYSPIN_PTH ---
PATIENT: MAGUE SPENCER LOC: [facility] U#:[id number] AGE/SX: 58/F ROOM: RE05/22/[address]: Traci Mcgill : 1965 BED: DIS: 05/22/2024 SPEC #: [id number] RECD: 05/22/24 16:28 STATUS: TABATHA EZIO #: [id number] JANICE: 05/22/24 00:[address]: Traci Mcgill DEPT: CYTOLOGY RECD BY: Courtney Benitez ENTERED: 05/23/24 07:52 SP TYPE: CYSPIN FL OTHR DR: Rosario Walters, HEAD SILVERMAN-C Tissues: Urine Procedures: Pap Stain (control) Special Stain Group II Cytospin Fluid HEADER OPERATION: Not noted PRE-OP DIAGNOSIS: Gross hematuria TISSUE SUBMITTED: Urine for cytology DIAGNOSIS CYTOLOGY Urine for cytology (cytospins): Negative for high grade urothelial carcinoma , [place] System Category II. See comment. AM.mr 05/23/2024 COMMENT The specimen primarily consists of benign squamous epithelial cells and crystalline debris. The [place] System for urine cytology diagnostic categorization was used in the evaluation of this case. Clinical correlation is suggested. CYTOLOGY STUDY Slides are reviewed. CYTOLOGY GROSS Received is 30 ml of hazy-george fluid labeled with the patient's name and and designated per the requisition as urine. Submitted for cytology preparation. Mr 05/23/2024 TC:5 CPT: 59963
[2024-05-22 16:29] LABS: Cytology, Body Fluid / CSF SEE PATHOLOGY REPORT
== END | disposition home or self-care (01) ==
LOC: LABSPEC 16:23
PROVIDERS: PCP Nurse Practitioner Primary Care; Referring Provider Nurse Practitioner; Visit Provider Nurse Practitioner
DX: R31.0 Gross hematuria (principal)
CPT/HCPCS: 88108; 88313

== ENCOUNTER → 2024-11-08 | Outpatient (CLI) | payer BC, SELFPAY ==
--- NOTE | 2024-11-08 13:24 | NEURO ---
NCS and/or EMG Patient Report Ordering Doctor: Zeinab Roman DATE OF SERVICE: 11/08/24 Sondra presents for electrodiagnostic testing of the left upper limb. She reports numbness and tingling in the left arm. Electrodiagnostic findings: Left median motor nerve demonstrates prolonged latency with normal amplitude and conduction velocity. Left ulnar motor response within normal limits. Normal median and ulnar F?waves. Prolonged left median sensory latency at the wrist. Needle EMG testing was performed in the left upper limb. All muscles tested showed no evidence of denervation with normal motor unit action potentials. Electrodiagnostic impression: This is an abnormal study in the left upper limb 1. Electrodiagnostic findings suggestive of left-sided median mononeuropathy. This consistent with a mild left carpal tunnel syndrome. Multi Select Codes Neurology Neurology Interp Codes: 60294-28 Musc test done w/n test comp (interp) and 74262-11 Nrv cndj tst 5-6 studies (interp)
== END | disposition home or self-care (01) ==
LOC: PSN 09:30
PROVIDERS: PCP Nurse Practitioner Primary Care
DX: M25.532 Pain in left wrist (principal); R20.2 Paresthesia of skin
CPT/HCPCS: 95886; 95910

== ENCOUNTER → 2025-05-14 | Outpatient (CLI) | payer BC, SELFPAY ==
[2025-05-14 12:41] LABS: Prothrombin Time (Protime)PT. 18.5 SECONDS (11.7-14.9)
[2025-05-14 13:45] LABS: AST(SGOT) 65 U/L (<=31); Alanine Aminotransfer ALT/SGPT 27 U/L (<=34); Albumin, Serum 3.4 g/dL (3.5-5.0); Alkaline Phosphatase 220 U/L (35-104); Anion Gap 9 (5-15); BUN 7 mg/dL (4-19); BUN/Creat Ratio 8.5 RATIO (10-20); CPK Total, Creatine Kinase 209 U/L (24-195); Calcium,Total 8.7 mg/dL (7.6-11.0); Carbon Dioxide 21.9 mmol/L (21.0-32.0); Chloride 107 mmol/L (98-108); Ferritin 406 ng/mL (22-378); Globulin 3.9 g/dL (2.2-4.2); Glucose 139 mg/dL (70-99); Potassium 4.1 mmol/L (3.3-5.1)
[2025-05-14 14:37] LABS: CRP 4.69 mg/L (0.0-3.0); LDH 258 U/L (84-246)
[2025-05-16 14:09] LABS: Albumin 3.2 g/dL (2.9-4.4); Angiotensin Convert Enzyme 86 U/L (14-82); Anti-Smooth Muscle ABS 84 Units (0-19); Cytoplasmic Ab (C-ANCA) <1:20 titer (Neg:<1:20); Gamma Globulin 2.2 g/dL (0.4-1.8); IgG, Quant 2004 mg/dL (586-1602); Immunoglobulin A 927 mg/dL (87-352); Immunoglobulin G, Subclass 1 1020 mg/dL (248-810); Immunoglobulin G, Subclass 2 530 mg/dL (130-555); Immunoglobulin G, Subclass 3 122 mg/dL (15-102); Immunoglobulin G, Subclass 4 227 mg/dL (2-96); Immunoglobulin M 157 mg/dL (26-217); PROEL- TOTAL PROTEIN 7.1 g/dL (6.0-8.5); Perinuclear Ab (P-ANCA) <1:20 titer (Neg:<1:20)
== END | disposition home or self-care (01) ==
LOC: LAB 11:53
PROVIDERS: PCP Nurse Practitioner Primary Care; Referring Provider Internal Medicine Gastroenterology; Visit Provider Internal Medicine Gastroenterology
DX: K75.81 Nonalcoholic steatohepatitis (NASH) (principal)
CPT/HCPCS: 36415; 80053; 82085; 82105; 82164; 82390; 82550; 82728; 82784; 82787; 83516; 83615; 84165; 84443; 85610; 85652; 86037; 86140; 86255; 86334

== ENCOUNTER → 2025-05-16 | Outpatient (CLI) | payer BC, SELFPAY ==
--- NOTE | 2025-05-16 17:35 | CT_ITS ---
PROCEDURE: ABDOMEN/PELVIS WITH CONTRAST 05/16/2025 REASON FOR EXAM: ELEVATED LFTS, HYPERBILIRUBINEMIA, JONES TECHNIQUE: Procedure Code: [id number] Modality: CT Procedure: ABDOMEN/PELVIS WITH CONTRAST Coronal and Sagittal reconstruction series were provided. CONTRAST: Isovue-300 VOLUME: 98 mL One or more dose reduction techniques were used (e.g., Automated exposure control, adjustment of the mA and/or kV according to patient size, use of iterative reconstruction technique. RADIATION DOSE SUMMARY: CTDlvol: 9+ 22 mGy DLP: 1160 mGycm FINDINGS: The lung bases are clear. The peripheral soft tissues are unremarkable. Degenerative changes of the spine. Goenaxwq-jy-lklzjk atherosclerosis. Normal caliber abdominal aorta. No suspicious lymphadenopathy. Hypodense liver with a nodular surface contour. Surgically absent gallbladder. The pancreas is unremarkable. The spleen is enlarged. Upper abdominal varices. The adrenal glands are unremarkable. Symmetric enhancement of the kidneys in the bilateral cortical medullary phases. No hydroureteronephrosis. The urinary bladder is unremarkable. The uterus is surgically absent. Normal caliber large and small bowel without surrounding inflammatory changes. No ascites or free air. CT/Abdomen/Pelvis WITH Contrast IMPRESSION: Hypodense liver with nodular surface contour and upper abdominal varices, martha tible with cirrhosis and portal hypertension. Splenomegaly consistent with sequelae of portal hypertension. Postsurgical absence of the gallbladder and uterus. No ascites. No biliary dilation or other acute intra-abdominal abnormality. Reading Location: [address]
== END | disposition home or self-care (01) ==
LOC: CT 17:19
PROVIDERS: PCP Nurse Practitioner Primary Care; Referring Provider Internal Medicine Gastroenterology; Visit Provider Internal Medicine Gastroenterology
DX: K75.81 Nonalcoholic steatohepatitis (NASH) (principal); R79.89 Other specified abnormal findings of blood chemistry; E80.6 Other disorders of bilirubin metabolism
CPT/HCPCS: 74177; Q9967; A4216

== ENCOUNTER → 2025-05-19 | Outpatient (CLI) | payer BC, SELFPAY ==
--- OUTSIDE RECORDS SUMMARY | 2025-05-19 10:54 | XMS RPT_ITS | CCD ---
Author Organization [facility] Care Team Providers Care Regional Commercial Sales Manager Name Role Phone SATKEI LOGANISHNA B Unavailable Unavailable SATDESMOND, ROMULO B Unavailable Unavailable SATYAN, ROMULO B Unavailable Unavailable NO REFERRING Unavailable Unavailable SATDESMOND, ROMULO B Unavailable Unavailable Jacoby Mcrae Unavailable Unavailable Jael Dietz Unavailable Roger Sanchez Unavailable Unavailable Unavailable Unavailable SELENA GARAGEMAN-CLIENT TECHNICAL PROFESSIONAL, ROSARIO S Primary Care Physicia n Madan PT, Teresa Unavailable Unavailable Selena CUPOLA PATCHER HELPER, CUPOLA PATCHER HELPER-C Rosario Primary Care Provider Farzana Wray Attending Provider Unavailable Selena CUPOLA PATCHER HELPER, CUPOLA PATCHER HELPER-C Rosario Referring Provider Dr. Jeff Kyle Attending Provider Dr. Wali Portillo Attending Provider Dr. Jeff Kyle Referring Provider [phone] Dr. Jeff Kyle Other Provider SELENA GARAGEMAN-CLIENT TECHNICAL PROFESSIONAL, ROSARIO S Attending Unava ilable SELENA GARAGEMAN-CLIENT TECHNICAL PROFESSIONAL, ROSARIO S Primary Care Unava ilable SELENA GARAGEMAN-CLIENT TECHNICAL PROFESSIONAL, ROSARIO S Attending Unava ilable SELENA GARAGEMAN-CLIENT TECHNICAL PROFESSIONAL, ROSARIO S Primary Care Unava ilable SHANTEL POTTER, SYLVIE Willoughby Attending Unavailable SELENA GARAGEMAN-CLIENT TECHNICAL PROFESSIONAL, ROSARIO S Primary Care Unava ilable SHANTEL POTTER, SYLVIE Willoughby Attending Unavailable SELENA GARAGEMAN-CLIENT TECHNICAL PROFESSIONAL, ROSARIO S Primary Care Unava ilable SELENA GARAGEMAN-CLIENT TECHNICAL PROFESSIONAL, ROSARIO S Attending Unava ilable SELENA GARAGEMAN-CLIENT TECHNICAL PROFESSIONAL, ROSARIO S Primary Care Unava ilable MAURA POTTER, LIANE Lira Attending Unavailable SELENA GARAGEMAN-CLIENT TECHNICAL PROFESSIONAL, ROSARIO S Primary Care Unava ilable SELENA GARAGEMAN-CLIENT TECHNICAL PROFESSIONAL, ROSARIO S Attending Unava ilable SELENA GARAGEMAN-CLIENT TECHNICAL PROFESSIONAL, ROSARIO S Primary Care Unava ilable KISHORE POTTER, DR CARL Attending Unavailabl e SELENA GARAGEMAN-CLIENT TECHNICAL PROFESSIONAL, ROSARIO S Primary Care Unava ilable SHANTEL POTTER, SYLVIE Willoughby Attending Unavailable SELENA GARAGEMAN-CLIENT TECHNICAL PROFESSIONAL, ROSARIO S Primary Care Unava ilable SELENA GARAGEMAN-CLIENT TECHNICAL PROFESSIONAL, ROSARIO S Attending Unava ilable SELENA GARAGEMAN-CLIENT TECHNICAL PROFESSIONAL, ROSARIO S Primary Care Unava ilable SELENA GARAGEMAN-CLIENT TECHNICAL PROFESSIONAL, ROSARIO S Attending Unava ilable SELENA GARAGEMAN-CLIENT TECHNICAL PROFESSIONAL, ROSARIO S Primary Care Unava ilable SHANTEL POTTER, SYLVIE Willoughby Attending Unavailable SELENA GARAGEMAN-CLIENT TECHNICAL PROFESSIONAL, ROSARIO S Primary Care Unava ilable SELENA GARAGEMAN-CLIENT TECHNICAL PROFESSIONAL, ROSARIO S Attending Unava ilable SELENA GARAGEMAN-CLIENT TECHNICAL PROFESSIONAL, ROSARIO S Primary Care Unava ilable SELENA GARAGEMAN-CLIENT TECHNICAL PROFESSIONAL, ROSARIO S Attending Unava ilable SELENA GARAGEMAN-CLIENT TECHNICAL PROFESSIONAL, ROSARIO S Primary Care Unava ilable Gurdeep MALONE DO, George Quimby Unavailable Viri Rowland Primary Care Provider [phone] Selena CLIENT TECHNICAL PROFESSIONAL, Rosario S Primary Care Provider [phone] AIDAN NASH Referring Unavailable SELENA, ROSARIO S Primary Care Unavailable SELENA, ROSARIO S Referring Unavailable ARTEMMJ MARTINEE PATRICA Primary Care Unavailable SAADAIDAN Referring Unavailable SELENA, ROSARIO S Primary Care Unavailable SAADAIDAN Referring Unavailable SELENA, ROSARIO S Primary Care Unavailable Gerald Bennett Nurse, Juma Unavailable Maritza GILBERT MD, ILEANA Attending Unavailable MARI POTTER, ILEANA Admitting Unavailable LUCERO BELCHER MD Consulting Unavailable SELENA GARAGEMAN-CLIENT TECHNICAL PROFESSIONAL, ROSARIO S Primary Care Unava ilable EDIS PINEDA DO Consulting Unavailable SELENA GARAGEMAN-CLIENT TECHNICAL PROFESSIONAL, ROSARIO S Primary Care Unava ilable ILEANA GILBERT MD Attending Unavailable Selena CUPOLA PATCHER HELPER, Rosario Referring Unavailable Rafa Givens Attending Unavailable Playas CUPOLA PATCHER HELPER, Rosario Primary Care Unavailable Aidan Nash Referring Unavailable Playas CUPOLA PATCHER HELPER, Rosario Primary Care Unavailable Aidan Nash Attending Unavailable Playas CUPOLA PATCHER HELPER, Rosario Primary Care Unavailable Michelle Reece Attending Unavailable Zeinab Roman Attending Unavailable Abel, Zeinab Referring Unavailable Selena CUPOLA PATCHER HELPER, Rosario Primary Care Unavailable Selena CUPOLA PATCHER HELPER, Rosario Primary Care Unavailable Traci Mcgill Attending Unavailable Traci Mcgill Referring Unavailable Zeinab Roman Consulting Unavailable Zeinab Roman Referring Unavailable Porter Donovan Attending Unavailable Selena CUPOLA PATCHER HELPER, Rosario Primary Care Unavailable BATERS GARAGEMAN-CLIENT TECHNICAL PROFESSIONAL, MARA Attending Unavailabl e SELENA, ROSARIO Primary Care Unavailable BATERS GARAGEMAN-CLIENT TECHNICAL PROFESSIONAL, MARA Attending Unavailabl e SELENA, ROSARIO Primary Care Unavailable SELENA, ROSARIO Primary Care Unavailable SELENA, ROSARIO Attending Unavailable SELENA, ROSARIO Primary Care Unavailable PAMELA GARAGEMAN-CLIENT TECHNICAL PROFESSIONAL, VIVIENNE JOHNSON Attending U navailable SELENA, ROSARIO Primary Care Unavailable ALISIA POTTER, DR SOY Willoughby Attending Unavailable SELENA, ROSARIO Primary Care Unavailable SELENA, ROSARIO Attending Unavailable SELENA, ROSARIO Primary Care Unavailable DR SOY CRUMP MD Attending Unavailable SELENA, ROSARIO Primary Care Unavailable SELENABENITOROSARIO Attending Unavailable SELENA, ROSARIO Primary Care Unavailable SELENA, ROSARIO Attending Unavailable WITTENSOLDNER GARAGEMAN-CLIENT TECHNICAL PROFESSIONAL, CHUY Attending U navailable SELENA, ROSARIO Primary Care Unavailable SELENA, ROSARIO Primary Care Unavailable SELENA, ROSARIO Attending Unavailable SEELNA, ROSARIO Primary Care Unavailable ILEANA GILBERT MD Attending Unavailable SELENA, ROSARIO Primary Care Unavailable ILEANA GILBERT MD Attending Unavailable JANES ESTRADA DO Attending Unavailable SELENA, ROSARIO Primary Care Unavailable SELENA, ROSARIO Primary Care Unavailable SELENA, ROSARIO Attending Unavailable ILEANA GILBERT MD Attending Unavailable SELENA, ROSARIO Primary Care Unavailable SELENA, ROSARIO Primary Care Unavailable SELENA, ROSARIO Attending Unavailable ILEANA GILBERT MD Attending Unavailable ROSARIO WALTERS Primary Care Unavailable Allergies Allergy Classification Reported Allergen(s) Allergy Type Date of Onset Reaction(s) Facility Penicillins (antibiotic) (1 source) Penicillin; Translations: [penicillins] Drug Allergy [facility] (8 sources) Penicillins; Translations: [PENICILLINS] Propensity to adverse reactions (disorder) [facility] Repository Comment on above: Hives (20 sources) Hmg-Coa Reductase Inhibitors (Statins); Translations: [statins] Drug allergy Joint pain (finding) [facility] (20 sources) Penicillin; Translations: [penicillins] Drug Allergy Weal (disorder) [facility] Medications Current Medications Medication Drug Class(es) Dates Sig (Normalized) Sig (Original) 0.5 ML tirzepatide 15 MG/ML Auto-Injector [Mounjaro] (3 sources) Start: 03-09-2024 inject 1 dose by subcutaneous injection every week Mounjaro 7.5 mg/0.5 mL subcutaneous solution Dose : 7.5 mg =, Subcutaneous, qWeek, rotate injection sites, # 4 EA, 3 Refill(s), Pharmacy: [facility] #[id number], 165, cm, 01/18/24 15:20:00 EDT, Height, kg, 01/18/24 15:20:00 EDT, Dosing Weight Start Date: 03/09/24 Status: Ordered 0.5 ML tirzepatide 20 MG/ML Auto-Injector [Mounjaro] (2 sources) Start: 06-15-2024 inject 1 dose by subcutaneous injection every week Mounjaro 10 mg/0.5 mL subcutaneous solution Dose : 10 mg =, Subcutaneous, qWeek, rotate injection sites, # 4 EA, 4 Refill(s), Pharmacy: [facility] #[id number], 165, cm, 04/06/24 13:02:00 EDT, Height, kg, 04/06/24 13:02:00 EDT, Dosing Weight Start Date: 06/15/24 Status: Ordered Quantity: 4.0 Unit: EA Repeat number: 5 0.5 ML tirzepatide 25 MG/ML Auto-Injector [Mounjaro] (13 sources) Start: 09-13-2024 inject 1 dose by subcutaneous injection every week Mounjaro 12.5 mg/0.5 mL subcutaneous solution Dose : 12.5 mg =, Subcutaneous, qWeek, rotate injection sites, # 2 mL, 6 Refill(s), Pharmacy: [facility] #[id number], 165, cm, 09/12/24 11:26:00 EDT, Height, kg, 09/12/24 11:26:00 EDT, Dosing Weight Start Date: 09/13/24 Status: Ordered Medication Dispense Status: Completed Quantity: 2.0 Unit: mL Total Allowed Fills: 7 Fills Dispensed: 0 Start: 09-13-2024 inject 1 dose by sub cutaneous injection every week Mounjaro 12.5 mg/0.5 mL subcutaneous solution Dose : 12.5 mg =, Subcutaneous, qWeek, rotate injection sites, # 2 mL, 6 Refill(s), Pharmacy: [id number], 165, cm, 09/12/24 11:26:00 EDT, Height, kg, 09/12/24 11:26:00 EDT, Dosing Weight Start Date: 09/13/24 Status: Ordered Quantity: 2.0 Unit: mL Repeat number: 7 0.5 ML tirzepatide 5 MG/ML Auto-Injector [Mounjaro] (1 source) Start: 11-17-2022 inject 1 dose by subcutaneous injection every week Mounjaro 2.5 mg/0.5 mL subcutaneous solution Dose : 2.5 mg =, Subcutaneous, qWeek, rotate injection sites, # 4 EA, 6 Refill(s), Pharmacy: [facility], 162.6, cm, 12/02/21 14:57:00 EDT, Height Start Date: 11/17/22 Status: Ordered acetaminophen 500 mg oral tablet (1 source) Start: 06-11-2021 End: 06-25-2021 take 1 tablet by mouth once daily acetaminophen 500 mg oral tablet Dose : 1,000 mg = 2 tab(s), Oral, TID, PRN as needed for fever, not to exceed 3000 mg/day, # 100 tab(s), 0 Refill(s), 06/25/21 7:04:00 EST, [facility], 162.56, cm, 06/10/21 13:32:00 EST, Height, kg, 06/10/21 13:32:00 EST, Dosing... Start Date: 06/11/21 Stop Date: 06/25/21 Status: Ordered acetaminophen 325 mg / HYDROcodone bitartrate 5 mg oral tablet (4 sources) Opioid Agonist Start: 03-31-2024 End: 04-05-2024 take 1-2 tablets by mouth every six hours as needed for pain acetaminophen-hydro codone 325 mg-5 mg oral tablet TAKE 1 TO 2 TABLETS BY MOUTH EVERY 6 HOURS FOR 5 DAYS NEEDED FOR PAIN Start Date: 04/06/24 Status: Ordered Start: 12-26-2022 End: 12-29-2022 take 1 tablet by mouth every four hours as needed for pain [place] 325- 5 mg oral tablet Dose = 1 tab(s), Oral, q4h, PRN for pain, X 3 day(s), # 8 tab(s), 0 Refill(s), Contusion of shoulder region, 95.5 Start Date: 12/26/22 Stop Date: 12/29/22 Status: Ordered aspirin 81 mg delayed release oral tablet (20 sources) Platelet Aggregation Inhibitor, Nonsteroidal Anti-inflammatory Drug Start: 01-23-2025 aspirin 81 mg ora l delayed release tablet Dose : 81 mg = 1 tab(s), Oral, qDay, # 30 tab(s), 0 Refill(s) Start Date: 01/23/25 Status: Ordered Medication Dispense Status: Completed Quantity: 30.0 Unit: tab(s) Total Allowed Fills: 1 Fills Dispensed: 0 Start: 06-11-2021 aspirin Dose : 81 mg = 1 tab(s), Oral, Daily, 0 Refill(s) Start Date: 06/11/21 Status: Ordered Repeat number: 1 Start: 06-03-2020 take 81 mg by mouth at bedtime Aspirin Active 81 MG PO AT BEDTIME June 03, 2020 12:00am Start: 08-04-2019 aspirin 81 mg oral delayed release tablet Dose : 81 mg = 1 tab(s), Oral, qDay, # 30 tab(s), 0 Refill(s) Start Date: 08/04/19 Status: Ordered Start: 01-05-2017 End: 10-30-2019 take 81 mg by mouth at bedtime Aspirin Discontinued 81 MG PO AT BEDTIME January 04, 2017 11:00pm October 30, 2019 9:30am Blood Glucose Test Machine (20 sources) Start: 05-10-2019 Blood Glucose Test Machine See Instructions, testing once daily, # 1 EA, 0 Refill(s), Pharmacy: [address], [facility] Start Date: 05/10/19 Status: Ordered Medication Dispense Status: Completed Quantity: 1.0 Unit: EA Total Allowed Fills: 1 Fills Dispensed: 0 Indications: Type 2 diabetes mellitus without complications; Start: 05-10-2019 Blood Glucose Test Machine See Instructions, testing once daily, # 1 EA, 0 Refill(s), Pharmacy: [address], [facility] Start Date: 05/10/19 Status: Ordered Quantity: 1.0 Unit: EA Repeat number: 1 Indications: Type 2 diabetes mellitus without complications; Start: 05-10-2019 Blood Glucose Test Machine See Instructions, testing once daily, # 1 EA, 0 Refill(s), Pharmacy: [address], [facility] Start Date: 05/10/19 Status: Ordered Quantity: 1.0 Unit: EA Repeat number: 1 Indication: Type 2 diabetes mellitus without complications Start: 05-10-2019 Blood Glucose Test Machine See Instructions, testing once daily, # 1 EA, 0 Refill(s), Pharmacy: [address], [facility] Start Date: 05/10/19 Status: Ordered cholecalciferol 0.625 mg oral capsule (11 sources) Vitamin D Start: 03-11-2023 End: 12-20-2024 cholecalciferol 625 mcg (25,000 intl units) oral capsule Dose : 625 mcg = 1 cap(s), Oral, qWeek, # 4 cap(s), 11 Refill(s), Pharmacy: [facility] #[id number], 165, cm, 01/18/24 15:20:00 EDT, Height, kg, 01/18/24 15:20:00 EDT, Dosing Weight Start Date: 01/19/24 Stop Date: 12/20/24 Status: Ordered Start: 03-11-2023 End: 02-10-2024 cholecalciferol 625 mcg (25, 000 intl units) oral capsule Dose : 625 mcg = 1 cap(s), Oral, qWeek, # 4 cap(s), 11 Refill(s), [facility]: [id number], 165, cm, 03/09/23 7:57:00 EDT, Height, kg, 03/09/23 7:57:00 EDT, Dosing Weight Start Date: 03/11/23 Stop Date: 02/10/24 Status: Ordered Clindamycin (1 source) Lincosamide Antibacterial Start: 09-12-2024 Clindamycin (Eqv-Clindagel) 1% topical gel Dose = 1 toy, Topical, BID, # 30 gram(s), 11 Refill(s), Pharmacy: [facility]/pharmacy #[id number], 165, cm, 09/12/24 11:26:00 EDT, Height, kg, 09/12/24 11:26:00 EDT, Dosing Weight Start Date: 09/12/24 Status: Ordered Quantity: 30.0 Unit: g Repeat number: 12 doxycycline hyclate 100 mg oral capsule (3 sources) Tetracycline-class Drug Start: 06-11-2021 End: 06-18-2021 doxycycline monohydrate 100 mg oral capsule Dose : 100 mg = 1 cap(s), Oral, BID, with fluids may take with food to minimize abdominal discomfort, # 14 cap(s), 0 Refill(s), 06/18/21 7:05:00 EST, Pharmacy: [facility] 162.56, cm, 06/10/21 13:32:00 EST, Height, 100, kg, 06/10/21 13:3... Start Date: 06/11/21 Stop Date: 06/18/21 Status: Ordered Start: 04-24-2019 take 1 tablet by brittany twice daily Doxycycline Monohydrate 100 MG Oral Tablet 1 (one) Tablet bid for 10 days Quantity: 20 {Tablet} Refills: 0 Ordered: 24-Apr-2019 Jael Dietz CNP, CNP, Mary E Start : 24-Apr-2019 Active Start: 01-19-2017 End: 11-23-2017 take 100 mg by mouth twice daily Doxycycline Monohydrate Discontinued 100 MG PO TWICE A DAY January 18, 2017 11:00pm November 23, 2017 4:04pm 1 ml evolocumab 140 mg/ml auto-injector (16 sources) PCSK9 Inhibitor Start: 03-21-2025 inject 1 dose by subcutaneous injection every other week Repatha SureClick 140 mg/mL subcutaneous solution Dose : 140 mg =, Subcutaneous, q2wk, rotate injection sites, # 2 EA, 4 Refill(s), Pharmacy: [facility] #[id number], 162, cm, 02/12/25 15:11:00 EDT, Height, kg, 02/12/25 15:11:00 EDT, Dosing Weight Start Date: 03/21/25 Status: Ordered Medication Dispense Status: Completed Quantity: 2.0 Unit: EA Total Allowed Fills: 5 Fills Dispensed: 0 Start: 09-18-2024 inject 1 mL by subcu taneous injection every other week Repatha SureClick 140 mg/mL subcutaneous solution Dose : 140 mg = 1 mL, Subcutaneous, q2wk, rotate injection sites, # 6 mL, 3 Refill(s), Pharmacy: [facility] #[facility], 165, cm, 09/12/24 11:26:00 EDT, Height, kg, 09/12/24 11:26:00 EDT, Dosing Weight Start Date: 09/18/24 Status: Ordered Quantity: 6.0 Unit: mL Repeat number: 4 Start: 11-11-2023 inject 1 dose by sub cutaneous injection every other week Repatha SureClick 140 mg/mL subcutaneous solution Dose : 140 mg =, Subcutaneous, q2wk, rotate injection sites, # 2 EA, 0 Refill(s) Start Date: 11/11/23 Status: Ordered Quantity: 2.0 Unit: EA Repeat number: 1 Start: 11-03-2023 inject 1 dose by sub cutaneous injection every other week Repatha 140 mg/mL subcutaneous solution Dose : 140 mg =, Subcutaneous, q2wk, # 6 EA, 2 Refill(s), [id number], 163, cm, 11/03/23 10:39:00 EDT, Height, kg, 11/03/23 10:39:00 EDT, Dosing Weight Start Date: 11/03/23 Status: Ordered Start: 12-07-2017 End: 04-15-2022 inject 140 mg by subcutaneous injection every other week Evolocumab Discontinued 140 MG SQ Q14D December 06, 2017 11:00pm April 15, 2022 8:45am ezetimibe 10 mg oral tablet (5 sources) Dietary Cholesterol Absorption Inhibitor Start: 08-25-2024 Zetia 10 mg oral tablet Dose : 10 mg = 1 tab(s), Oral, qDay, # 90 tab(s), 3 Refill(s), Pharmacy: [facility] #330, 97.9, cm, 08/25/24 8:29:00 EST, Height, kg, 08/25/24 8:29:00 EST, Dosing Weight Start Date: 08/25/24 Status: Ordered Quantity: 90.0 Unit: tab(s) Repeat number: 4 famotidine 20 mg oral tablet (2 sources) Histamine-2 Receptor Antagonist Start: 06-11-2021 Pepcid 20 mg oral tablet Dose : 20 mg = 1 tab(s), Oral, qDay, # 30 tab(s), 0 Refill(s), [facility]: [facility], 162.56, cm, 06/10/21 13:32:00 EST, Height, kg, 06/10/21 13:32:00 EST, Dosing Weight Start Date: 06/11/21 Status: Ordered ferrous sulfate 325 mg delayed release oral tablet (20 sources) Start: 09-10-2023 ferrous sulfat e 325 mg (65 mg elemental iron) oral delayed release tablet Dose : 325 mg = 1 tab(s), Oral, BID, # 30 tab(s), 0 Refill(s) Start Date: 09/10/23 Status: Ordered Medication Dispense Status: Completed Quantity: 30.0 Unit: tab(s) Total Allowed Fills: 1 Fills Dispensed: 0 FLUoxetine 20 mg oral capsule (3 sources) Serotonin Reuptake Inhibitor Start: 04-27-2025 End: 04-22-2026 FLUoxetine 20 mg oral capsule Dose : 20 mg = 1 cap(s), Oral, qDay, # 30 cap(s), 11 Refill(s), Pharmacy: [facility]/pharmacy #[id number], 162, cm, 04/25/25 15:06:00 EDT, Height, kg, 04/25/25 15:06:00 EDT, Dosing Weight Start Date: 04/27/25 Stop Date: 04/22/26 Status: Ordered Medication Dispense Status: Completed Quantity: 30.0 Unit: cap(s) Total Allowed Fills: 12 Fills Dispensed: 0 furosemide 20 mg oral tablet (20 sources) Loop Diuretic Start: 03-15-2025 furosemide 20 mg oral tablet Dose : 20 mg = 1 tab(s), Oral, qDay, PRN Swelling, # 30 tab(s), 5 Refill(s), Pharmacy: [facility] #[facility], 162, cm, 02/12/25 15:11:00 EDT, Height, kg, 02/12/25 15:11:00 EDT, Dosing Weight Start Date: 03/15/25 Status: Ordered Medication Dispense Status: Completed Quantity: 30.0 Unit: tab(s) Total Allowed Fills: 6 Fills Dispensed: 0 Start: 08-22-2024 furosemide 20 mg oral tablet Dose : 20 mg = 1 tab(s), Oral, qDay, PRN Swelling, # 30 tab(s), 5 Refill(s), Pharmacy: [facility] #[facility], 165, cm, 07/18/24 16:01:00 EST, Height, kg, 07/18/24 16:01:00 EST, Dosing Weight Start Date: 08/22/24 Status: Ordered Medication Dispense Status: Completed Quantity: 30.0 Unit: tab(s) Total Allowed Fills: 6 Fills Dispensed: 0 Start: 10-12-2023 furosemide 20 mg oral tablet Dose : 20 mg = 1 tab(s), Oral, qDay, PRN Swelling, # 30 tab(s), 5 Refill(s), [id number], 165, cm, 10/12/23 13:32:00 EDT, Height, kg, 10/12/23 13:59:00 EDT, Dosing Weight Start Date: 10/12/23 Status: Ordered Quantity: 30.0 Unit: tab(s) Repeat number: 6 loratadine 10 mg oral tablet (6 sources) Start: 05-26-2023 take 1 dose by mouth once daily as needed loratadine Dose : 10 mg =, Oral, qDay, PRN as needed for allergy symptoms, 0 Refill(s) Start Date: 05/26/23 Status: Ordered metFORMIN hydrochloride 500 mg oral tablet (19 sources) Biguanide Start: 07-14-2023 End: 01-12-2025 metFORMIN 500 mg oral tablet EXTENDED RELEASE Dose : 2,000 mg = 4 tab(s), Oral, qDay, # 120 tab(s), 11 Refill(s), 165, cm, 01/18/24 15:20:00 EDT, Height, kg, 01/18/24 15:20:00 EDT, Dosing Weight Start Date: 01/18/24 Stop Date: 01/12/25 Status: Ordered Start: 12-01-2022 End: 06-29-2023 metFORMIN 500 mg oral tablet EXTENDED RELEASE Dose : 2,000 mg = 4 tab(s), Oral, qDay, To replace the metformin IR, # 120 tab(s), 6 Refill(s), [facility]: [id number], 162.6, cm, 12/02/21 14:57:00 EDT, Height, kg, 12/02/21 14:57:00 EDT, Dosing Weight Start Date: 12/01/22 Stop Date: 06/29/23 Status: Ordered Start: 04-15-2022 take 1000 mg by mout h twice daily Metformin Active 1000 MG PO TWICE A DAY April 14, 2022 11:00pm Start: 03-14-2021 End: 09-25-2022 metFORMIN 500 mg oral tablet EXTENDED RELEASE Dose : 2,000 mg = 4 tab(s), Oral, qDay, To replace the metformin IR, # 120 tab(s), 11 Refill(s), Pharmacy: [facility] 162.56, cm, 06/10/21 13:32:00 EST, Height, kg, 06/10/21 13:32:00 EST, Dosing Weight Start Date: 09/30/21 Stop Date: 09/25/22 Status: Ordered mupirocin 0.02 mg/mg topical ointment (1 source) RNA Synthetase Inhibitor Antibacterial Start: 01-23-2025 mupirocin 2% topical ointment Apply 1 toy, Topical, BID, Bilateral intranasal application twice daily x 5 days pre-surgery &/or as many days pre-surgery as possible., Apply to: nostril, each, # 22 gram(s), 0 Refill(s), Pharmacy: [facility] #[facility], Ointment, 162, cm, 01/23/25 11:29:00 EDT, Height, 96.8, kg, 01/23/25 11:29:00 EDT, Dosing Weight Start Date: 01/23/25 Status: Ordered Quantity: 22.0 Unit: g Repeat number: 1 nitrofurantoin, macrocrystals 25 mg / nitrofurantoin, monohydrate 75 mg oral capsule (3 sources) Nitrofuran Antibacterial Start: 04-25-2025 nitrofurantoin macrocrystals-monohydr ate 100 mg oral capsule Dose : 100 mg = 1 cap(s), Oral, BID, 0 Refill(s), 99.8 Start Date: 04/25/25 Status: Ordered Medication Dispense Status: Completed Total Allowed Fills: 1 Fills Dispensed: 0 Start: 03-31-2024 End: 04-07-2024 Macrobid 100 mg oral capsule Dose : 100 mg = 1 cap(s), Oral, BID, Take with food, X 7 day(s), # 14 cap(s), 0 Refill(s), 04/07/24 4:12:00 PM EDT, 98.1 Start Date: 03/31/24 Stop Date: 04/07/24 Status: Ordered nystatin 100 unt/mg topical powder (1 source) Polyene Antifungal Start: 09-12-2024 nystatin 10 0,000 units/g topical powder Apply 1 toy, Topical, BID, # 60 gram(s), 0 Refill(s), Pharmacy: [facility]/pharmacy #[id number], Powder, 165, cm, 09/12/24 11:26:00 EDT, Height, 95.5, kg, 09/12/24 11:26:00 EDT, Dosing Weight Start Date: 09/12/24 Status: Ordered Quantity: 60.0 Unit: g Repeat number: 1 ondansetron 4 mg oral tablet (6 sources) Serotonin-3 Receptor Antagonist Start: 01-28-2025 End: 01-30-2025 Zofran 4 mg oral tablet Dose : 4 mg = 1 tab(s), Oral, q6h, PRN Nausea/Vomiting, # 8 tab(s), 0 Refill(s), 01/30/25 12:37:00 PM EDT, Pharmacy: [facility]/pharmacy #[id number], 162.6, cm, 01/26/25 14:07:00 EDT, Height, kg, 01/26/25 14:07:00 EDT, Dosing Weight Start Date: 01/28/25 Stop Date: 01/30/25 Status: Ordered Quantity: 8.0 Unit: tab(s) Repeat number: 1 Start: 03-31-2024 End: 04-05-2024 take 1 tablet by mouth every six hours as needed for nausea ondansetron 4 mg oral tablet TAKE 1 TABLET BY MOUTH EVERY 6 HOURS FOR 5 DAYS NEEDED FOR NAUSEA/VOMITING Start Date: 04/06/24 Status: Ordered Start: 06-11-2021 End: 06-18-2021 ondansetron 4 mg oral tablet Dose : 4 mg = 1 tab(s), Oral, q6h, PRN Nausea/Vomiting, # 20 tab(s), 1 Refill(s), 06/18/21 7:06:00 EST, [facility]acy: [facility], 162.56, cm, 06/10/21 13:32:00 EST, Height, kg, 06/10/21 13:32:00 EST, Dosing Weight Start Date: 06/11/21 Stop Date: 06/18/21 Status: Ordered oxyCODONE hydrochloride 5 mg oral tablet (3 sources) Opioid Agonist Start: 01-28-2025 End: 01-31-2025 oxyCODONE 5 mg oral tablet ( IMMEDIATE release ) Dose : 5 mg = 1 tab(s), Oral, q6h, PRN for pain, X 3 day(s), # 12 tab(s), 0 Refill(s), 01/31/25 7:45:00 AM EDT, Pharmacy: [facility]/pharmacy #[id number], Acute postoperative pain, 162.6, cm, 01/26/25 14:07:00 EDT, Height, 96.9, kg, 01/26/25 14:07:00 EDT, Dosing Weight Start Date: 01/28/25 Stop Date: 01/31/25 Status: Ordered Quantity: 12.0 Unit: tab(s) Repeat number: 1 Indications: Other acute postprocedural pain; Start: 06-11-2021 End: 06-18-2021 take 1-2 tablets by mouth every four hours as needed for pain oxyCODONE 5 mg oral tablet ( IMMEDIATE release ) See Instructions, PRN as needed for pain, 1-2 tab(s) Oral q4h, # 60 tab(s), 0 Refill(s), 06/18/21 7:06:00 EST, S/P total knee arthroplasty, 100 Start Date: 06/11/21 Stop Date: 06/18/21 Status: Ordered potassium chloride 10 meq extended release oral capsule (20 sources) Start: 11-21-2024 potassium chlo ride 10 mEq oral capsule, extended release Dose : 10 mEq = 1 cap(s), Oral, BID, # 60 cap(s), 11 Refill(s), Pharmacy: [facility] #[id number], 165, cm, 10/24/24 13:55:00 EDT, Height, kg, 10/24/24 13:55:00 EDT, Dosing Weight Start Date: 11/21/24 Status: Ordered Medication Dispense Status: Completed Quantity: 60.0 Unit: cap(s) Total Allowed Fills: 12 Fills Dispensed: 0 Start: 10-12-2023 potassium chlo ride 10 mEq oral capsule, extended release Dose : 10 mEq = 1 cap(s), Oral, BID, # 60 cap(s), 11 Refill(s), Pharmacy: [facility] #[id number], 165, cm, 10/12/23 13:32:00 EDT, Height, kg, 10/12/23 13:59:00 EDT, Dosing Weight Start Date: 10/12/23 Status: Ordered Quantity: 60.0 Unit: cap(s) Repeat number: 12 pravastatin sodium 20 mg oral tablet (16 sources) HMG-CoA Reductase Inhibitor Start: 09-15-2022 pravastatin 20 mg or al tablet Dose : 20 mg = 1 tab(s), Oral, qDay, # 90 tab(s), 1 Refill(s), Pharmacy: [facility] #[id number], 162.6, cm, 12/02/21 14:57:00 EDT, Height, kg, 12/02/21 14:57:00 EDT, Dosing Weight Start Date: 09/15/22 Status: Ordered Start: 04-15-2022 take 10 mg by mouth at bedtime Pravastatin Active 10 MG PO AT BEDTIME April 14, 2022 11:00pm Start: 12-22-2021 pravastatin 20 mg oral tablet Dose : 20 mg = 1 tab(s), Oral, qDay, # 30 tab(s), 5 Refill(s), Pharmacy: [facility] [address] 162.6, cm, 12/02/21 14:57:00 EDT, Height Start Date: 12/22/21 Status: Ordered Start: 08-11-2021 pravastatin 10 mg oral tablet Dose : 10 mg = 1 tab(s), Oral, qDay, # 90 tab(s), 3 Refill(s), Pharmacy: [facility] [address] 162.56, cm, 06/10/21 13:32:00 EST, Height, kg, 06/10/21 13:32:00 EST, Dosing Weight Start Date: 08/11/21 Status: Ordered Start: 04-21-2021 pravastatin 10 mg oral tablet Dose : 10 mg = 1 tab(s), Oral, qDay, # 90 tab(s), 3 Refill(s), Pharmacy: [facility] [address] 162, cm, 02/10/21 15:26:00 EDT, Height, kg, 11/18/20 10:07:00 EDT, Dosing Weight Start Date: 04/21/21 Status: Ordered sennosides, SHELTER (1 source) Start: 06-11-2021 End: 06-14-2021 take 1 tablet by mouth twice daily Senokot S 50 mg-8.6 mg oral tablet Dose = 2 tab(s), Oral, BID, Take until first bowel movement, then as needed, # 30 tab(s), 0 Refill(s), Pharmacy: [facility] [address] 162.56, cm, 06/10/21 13:32:00 EST, Height, kg, 06/10/21 13:32:00 EST, Dosing Weight Start Date: 06/11/21 Stop Date: 06/14/21 Status: Ordered sulfamethoxazole 800 mg / trimethoprim 160 mg oral tablet (1 source) Dihydrofolate Reductase Inhibitor Antibacterial, Sulfonamide Antimicrobial Start: 05-02-2025 End: 05-07-2025 take 1 tablet by mouth twice daily Bactrim DS 800 mg-160 mg oral tablet Dose = 1 tab(s), Oral, BID, X 5 day(s), # 10 tab(s), 0 Refill(s), Pharmacy: [facility]/pharmacy #[id number], 162, cm, 05/02/25 13:18:00 EST, Height, 94.1, kg, 05/02/25 13:20:00 EST, Dosing Weight Start Date: 05/02/25 Stop Date: 05/07/25 Status: Ordered Medication Dispense Status: Completed Quantity: 10.0 Unit: tab(s) Total Allowed Fills: 1 Fills Dispensed: 0 Completed/Discontinued Medications Medication Drug Class(es) Dates Sig (Normalized) Sig (Original) celecoxib 200 mg oral capsule (1 source) Nonsteroidal Anti-inflammatory Drug Start: 07-04-2010 End: 02-15-2012 take 1 capsule by mouth once daily CELEBREX, 200MG (Oral Capsule) 1 Capsule once daily for 0 days Quantity: 10 {Capsule} Refills: 0 Ordered: 15-Feb-2012 Lizbeth Dangelo LPN Start : 04-Jul-2010 End : 15-Feb-2012 Inactive cyclobenzaprine hydrochloride 10 mg oral tablet (1 source) Muscle Relaxant Start: 06-13-2012 End: 03-27-2013 take 1 tablet by mouth three times daily as needed FLEXERIL, 10MG (Oral Tablet) 1 (one) Tablet tid prn muscle relax for 0 days Quantity: 30 {Tablet} Refills: 0 Ordered: 13-Jun-2012 JIN Sommers LPN Start : 13-Jun-2012 End : 27-Mar-2013 Discontinued Comments: This order discontinued per [facility]. Comment on above: This order discontin ued per [facility]. diphenhydrAMINE hydrochloride 25 mg oral capsule (1 source) Histamine-1 Receptor Antagonist Start: 06-03-2020 End: 04-15-2022 Diphenhydramine Hcl Discontinued 25 MG PO NEEDED June 03, 2020 12:00am April 15, 2022 8:45am 0.5 ML dulaglutide 6 MG/ML Auto-Injector [Trulicity] (19 sources) GLP-1 Receptor Agonist Start: 11-04-2023 inject 0.5 mL by subcutaneous injection every week Trulicity Pen 3 mg/0.5 mL subcutaneous solution Dose : 3 mg = 0.5 mL, Subcutaneous, qWeek, rotate injection sites, # 2 mL, 2 Refill(s), 0.5 mL/Pen, Pharmacy: [facility], 163, cm, 11/03/23 10:39:00 EDT, Height, kg, 11/03/23 10:39:00 EDT, Dosing Weight Start Date: 11/04/23 Status: Ordered Start: 08-27-2023 inject 1 dose by sub cutaneous injection every week Trulicity Pen 4.5 mg/0.5 mL subcutaneous solution Dose : 0.5 mL =, Subcutaneous, qWeek, rotate injection sites, # 2 mL, 1 Refill(s), Pharmacy: [facility], 165, cm, 05/26/23 9:20:00 EST, Height, kg, 05/26/23 9:20:00 EST, Dosing Weight Start Date: 08/27/23 Status: Ordered Start: 01-29-2023 inject 1 dose by sub cutaneous injection every week Trulicity Pen 4.5 mg/0.5 mL subcutaneous solution Dose : 0.5 mL =, Subcutaneous, qWeek, rotate injection sites, # 2 mL, 6 Refill(s), Pharmacy: [facility] #[id number], 165, cm, 12/26/22 16:52:00 EDT, Height, kg, 12/26/22 16:52:00 EDT, Dosing Weight Start Date: 01/29/23 Status: Ordered Start: 04-23-2022 Dulaglutide (T rulicity) 4.5 mg/0.5 mL pen injector Active 4.5 MG SC EVERY WEEK April 22, 2022 11:00pm Start: 09-30-2021 inject 1 dose by sub cutaneous injection every week Trulicity Pen 4.5 mg/0.5 mL subcutaneous solution Dose : 0.5 mL =, Subcutaneous, qWeek, rotate injection sites. To replace the 3mg dose, # 2 mL, 11 Refill(s), Pharmacy: [facility] [address] 162.56, cm, 06/10/21 13:32:00 EST, Height, kg, 06/10/21 13:32:00 EST, Dosing Weight Start Date: 09/30/21 Status: Ordered Start: 03-14-2021 inject 1 dose by sub cutaneous injection every week Trulicity Pen 4.5 mg/0.5 mL subcutaneous solution Dose : 0.5 mL =, Subcutaneous, qWeek, rotate injection sites. To replace the 3mg dose, # 2 mL, 6 Refill(s), Pharmacy: [facility] [address] 162, cm, 02/10/21 15:26:00 EDT, Height, kg, 11/18/20 10:07:00 EDT, Dosing Weight Start Date: 03/14/21 Status: Ordered Start: 10-30-2019 End: 04-23-2022 Dulaglutide (Trulicity) 0.75 mg/0.5 mL pen injector Discontinued 1.5 MG SC October 29, 2019 11:00pm April 23, 2022 2:23pm ergocalciferol 41912 unt oral capsule (1 source) Provitamin D2 Compound Start: 09-20-2009 End: 07-04-2010 VITAMIN D, [id number] (Oral Capsule) 1 (one) Capsule twice weely for 0 days Quantity: 24 {Capsule} Refills: 0 Ordered: 04-Jul-2010 Lizbeth Dangelo LPN Start : 20-Sep-2009 End : 04-Jul-2010 Discontinued Comments: This order discontinued per [facility]. Comment on above: This order discontin ued per [facility]. ibuprofen 200 mg oral capsule (1 source) Nonsteroidal Anti-inflammatory Drug End: 03-27-2013 take 4 capsules by mouth four times daily as needed IBUPROFEN, 200MG (Oral Capsule) 4 caps QID PRN for 0 days Refills: 0 Ordered: 27-Mar-2013 JIN Sommers LPN End : 27-Mar-2013 Inactive levoFLOXacin 500 mg oral tablet (1 source) Quinolone Antimicrobial Start: 01-19-2017 End: 11-23-2017 take 500 mg by mouth once daily Levofloxacin Discontinued 500 MG PO DAILY January 18, 2017 11:00pm November 23, 2017 4:04pm methylPREDNISolone 4 mg oral tablet (1 source) Corticosteroid Start: 09-16-2009 MEDROL (KIZZY), 4MG (Oral Tablet) 1 Tablet tad for 0 days Quantity: 1 {Package(s)} Refills: 0 Ordered: 16-Oct-2009 Mirela JACKSON, Jael Dietz CNP, Jael Roberts Start : 16-Sep-2009 Inactive Comments: taper Comment on above: taper nitroglycerin 0.4 mg sublingual tablet (1 source) Nitrate Vasodilator Start: 12-08-2017 End: 10-30-2019 Nitroglycerin Discontinued 0.4 MG SL Q5M December 07, 2017 11:00pm October 30, 2019 9:[address] one tab under tongue every 5 minutes x 3 doses as needed predniSONE 10 mg oral tablet (1 source) Start: 11-04-2011 End: 02-15-2012 PREDNISONE, 10MG (Oral Tablet) 3 pills for 3 days Tablet 2 pills for 3 days 1 pill for 3 cdays with food in am for 0 days Refills: 0 Ordered: 15-Feb-2012 Lizbeth Dangelo LPN Start : 04-Nov-2011 End : 15-Feb-2012 Inactive rosuvastatin calcium 40 mg oral tablet (1 source) HMG-CoA Reductase Inhibitor Start: 01-05-2017 End: 11-23-2017 take 40 mg by mouth at bedtime Rosuvastatin Discontinued 40 MG PO AT BEDTIME January 04, 2017 11:00pm November 23, 2017 4:03pm sertraline 100 mg oral tablet (1 source) Serotonin Reuptake Inhibitor Start: 01-05-2017 End: 11-23-2017 take 150 mg by mouth once daily Sertraline Discontinued 150 MG PO DAILY January 04, 2017 11:00pm November 23, 2017 4:04pm simvastatin 80 mg oral tablet (4 sources) HMG-CoA Reductase Inhibitor Start: 11-10-2010 End: 02-15-2012 take 1 tablet by mouth once at bedtime SIMVASTATIN, 80MG (Oral Tablet) 1 (one) Tablet q hs for 0 days Quantity: 30 {Tablet} Refills: 0 Ordered: 15-Feb-2012 Lizbeth Dangelo LPN Start : 10-Nov-2010 End : 15-Feb-2012 Inactive Comments: no refills patient needs an apt for follow up with labs 11-10-10 Start: 09-14-2008 simvastatin(ZO COR 40 MG TAB) Take one(1) tablet daily at bedtime. 90 3 09/14/2008 Active Comment on above: no refills patient n eeds an apt for follow up with labs 11-10-10 sulfacetamide sodium 100 mg/ml ophthalmic solution (1 source) Sulfonamide Antibacterial Start: 2 End: 2 BLEPH-10, 10% (Ophthalmic Solution) 2 (two) Drop(s) tid or qid for 7 days Quantity: 1 {Solution} Refills: 0 Ordered: 15-Feb-2012 Mirela JACKSON Jael Dietz CNP Jael Roberts Start : 15-Feb-2012 End : 22-Feb-2012 Inactive vitamin d 1000 unt oral tablet (1 source) Start: 0 End: 0 take 2 tablets by mouth once daily VITAMIN D, 1000UNIT (Oral Tablet) 2 (two) Tablet daily for 30 days Refills: 0 Ordered: 04-Jul-2010 Carlosradha JACKSON Jael Dietz MANUEL Jael Roberts Start : 16-Oct-2009 End : 15-Nov-2009 Inactive Problems Active Problems Problem Classification Problem Date Documented Date Episodic/Chronic Abdominal pain (7 sources) Abdominal pain; Translations: [Unspecified abdominal pain] Onset: 03-31-20 Episodic Anxiety disorders (2 sources) Anticipatory anxiety 04-11-2020 Chronic Biliary tract disease (13 sources) Biliary calculus 12-13-2024 Episodic Calculus of urinary tract (4 sources) Kidney stone 07-27-2024 Episodic Coagulation and hemorrhagic disorders (2 sources) Thrombocytopenic disorder; Translations: [Thrombocytopenia, unspecified] Onset: 05-26-2003-11-2023 Chronic Coronary atherosclerosis and other heart disease (20 sources) Coronary arteriosclerosis; Translations: [Coronary atherosclerosis] Onset: 06-10-20 21 04-26-2019 Chronic Deficiency and other anemia (20 sources) Pancytopenia; Translations: [Other pancytopenia] Onset: 05-26-2004-19-2023 Chronic Deficiency and other anemia (20 sources) Anemia; Translations: [Anemia, unspecified] Onset: 05-26-2008-12-2020 Episodic Diabetes mellitus with complications (4 sources) Type II diabetes mellitus uncontrolled; Translations: [Hyperglycemia due to type 2 diabetes mellitus] Onset: 01-18-2005-10-2019 Chronic Diabetes mellitus without complication (20 sources) Type 2 diabetes mellitus without complication; Translations: [Type 2 diabetes mellitus without complications] Onset: 06-10-20 Chronic Diseases of white blood cells (16 sources) Leukopenia; Translations: [Decreased white blood cell count, unspecified] Onset: 05-26-2004-19-2023 Chronic Disorders of lipid metabolism (20 sources) Mixed hyperlipidemia; Translations: [Mixed hyperlipidemia] Onset: 06-10-2004-24-2019 Chronic Comment on above: LDL was high Essential hypertension (20 sources) Hypertensive disorder 03-09-2023 Chronic Fluid and electrolyte disorders (20 sources) Hypokalemia 10-12-2023 Episodic Genitourinary symptoms and ill-defined conditions (1 source) Stress incontinence, female; Translations: [Stress incontinence, female] 04-24-2019 Chronic Genitourinary symptoms and ill-defined conditions (20 sources) Blood in urine; Translations: [Hematuria, unspecified] Onset: 03-31-20 Episodic Heart valve disorders (16 sources) Aortic valve sclerosis; Translations: [Other nonrheumatic aortic valve disorders] Chronic Mood disorders (20 sources) Major depressive disorder 04-25-2019 Chroni c Nonspecific chest pain (17 sources) Chest pain; Translations: [Chest pain, unspecified] Onset: 12-29-19 18 08-12-2020 Episodic Nutritional deficiencies (20 sources) Unspecified vitamin D deficiency; Translations: [Vitamin D deficiency] Onset: 03-09-2004-24-2019 Chronic Osteoarthritis (1 source) Osteoarthritis of knee; Translations: [Unilateral primary osteoarthritis, right knee] Onset: 06-10-20 Chronic Other aftercare (6 sources) Surgical follow-up 01-30-2025 Episodic Other circulatory disease (1 source) Carotid bruit; Translations: [Other specified symptoms and signs involving the circulatory and respiratory systems] Episodic Other circulatory disease (1 source) Other specified symptoms and signs involving the circulatory and respiratory systems; Translations: [Other symptoms involving cardiovascular system] Episodic Other connective tissue disease (2 sources) Artificial knee joint present; Translations: [Presence of unspecified artificial knee joint] Onset: 06-10-20 Chronic Other connective tissue disease (3 sources) Cramp 04-25-2025 Episodic Other gastrointestinal disorders (19 sources) Swallowing problem 11-05-2021 Episodic Other inflammatory condition of skin (13 sources) Intertrigo 09-13-2024 Episodic Other liver diseases (20 sources) Nodular hyperplasia of liver 10-13-2023 Chronic Other liver diseases (18 sources) Cirrhosis of liver 03-14-2024 Chronic Other liver diseases (18 sources) Portal hypertension 03-14-2024 Chronic Other liver diseases (20 sources) Elevated liver enzymes level 03-11-2023 Episodic Other lower respiratory disease (3 sources) Dyspnea; Translations: [Dyspnea (finding)] 02-10-2021 Episodic Other nervous system disorders (20 sources) Carpal tunnel syndrome; Translations: [Carpal tunnel syndrome] Resolved : 03-27-20 13 03-27-2013 Chronic Comment on above: worse on rt than lef t Other nervous system disorders (13 sources) Paresthesia of left upper limb 10-24-2024 Episodic Other nervous system disorders (1 source) Other acute postprocedural pain; Translations: [Other acute postprocedural pain] Onset: 01-27-20 Episodic Other non-traumatic joint disorders (7 sources) Knee pain 08-23-2019 Episodic Other non-traumatic joint disorders (7 sources) Shoulder pain 09-19-2020 Episodic Other non-traumatic joint disorders (3 sources) Ankle pain 09-12-2024 Episodic Other nutritional; endocrine; and metabolic disorders (3 sources) Obesity, unspecified Chronic Other nutritional; endocrine; and metabolic disorders (1 source) Obesity, unspecified; Translations: [Obesity, unspecified] 04-24-2019 Chronic Comment on above: talk about diet and exercise once stress test good. Other nutritional; endocrine; and metabolic disorders (1 source) Body mass index 30+ - obesity; Translations: [BMI 39.0-39.9,adult] 04-24-2019 Chronic Other nutritional; endocrine; and metabolic disorders (1 source) Obesity; Translations: [Obesity, unspecified] Onset: 06-10-20 Chronic Other screening for suspected conditions (not mental disorders or infectious disease) (2 sources) Imaging of thorax abnormal 07-30-2022 Chronic Other skin disorders (20 sources) Hidradenitis suppurativa 05-10-2019 Episodi c Other skin disorders (3 sources) Lesion of skin of foot 12-13-2024 Episodic Other skin disorders (6 sources) Mass of skin of right lower limb 12-13-2024 Episodic Other upper respiratory infections (2 sources) Acute maxillary sinusitis 07-30-2022 Episod ic Residual codes; unclassified (1 source) Tobacco user; Translations: [Tobacco use] Episodic Residual codes; unclassified (16 sources) Memory impairment 03-09-2023 Episodic Residual codes; unclassified (3 sources) Edema of lower extremity 10-12-2023 Episodi c Spondylosis; intervertebral disc disorders; other back problems (1 source) Displacement of cervical intervertebral disc without myelopathy; Translations: [DISPLACEMENT, CERVICAL DISC W/O MYELOPATHY] 04-24-2019 Chronic Comment on above: L4-5and L5 S1 degen with disc [facility] Luu 10-23-09 Spondylosis; intervertebral disc disorders; other back problems (20 sources) Thoracic or lumbosacral neuritis or radiculitis, unspecified; Translations: [Sciatica] Onset: 04-26-20 14 Resolved : 03-27-20 13 03-27-2013 Episodic Comment on above: secondary to disc he rniation likely musculoskelet alusing wee Substance-related disorders (1 source) Tobacco use disorder; Translations: [Disorder, tobacco use] 04-24-2019 Chronic Comment on above: stopped but than gai dexter 40 pounds so restarted and edenilson not stop again. Superficial injury; contusion (1 source) Contusion of shoulder region; Translations: [Contusion of unspecified shoulder, subsequent encounter] Onset: 12-27-19 23 Episodic Thyroid disorders (1 source) Goiter, unspecified; Translations: [Thyromegaly] 04-24-2019 Chronic Comment on above: minimally enlarged Unclassified (1 source) Unknown / UNK(Unknown) Onset: 12-29-19 18 Unclassified (20 sources) Patient encounter status 08-12-2020 Urinary tract infections (3 sources) Urinary tract infection, site not specified; Translations: [Urinary tract infection, site not specified] Onset: 04-20-20 25 Episodic Past or Other Problems Problem Classification Problem Date Documented Da te Episodic/Chronic Coronary atherosclerosis and other heart disease (2 sources) Aortocoronary bypass graft present; Translations: [Presence of aortocoronary bypass graft] Onset: 09-27-2015 Episodic Deficiency and other anemia (2 sources) Anemia, unspecified; Translations: [Anemia, unspecified] Onset: 03-09-2023 Episodic Headache; including migraine (2 sources) Headache; Translations: [Headache] Resolved: 03-27-2013 03-27-2013 Episodic Comment on above: resolved Immunizations and screening for infectious disease (2 sources) Need for prophylactic vaccination and inoculation against influenza; Translations: [NEED FOR PROPHYLACTIC VACCINATION AND INOCULATION AGAINST INFLUENZA (V04.81) (Renamed from Need for prophylactic vaccination and inoculation against influenza)] Resolved: 03-27-2013 03-27-2013 Episodic Inflammation; infection of eye (except that caused by tuberculosis or sexually transmitteddisease) (1 source) Serous conjunctivitis, except viral; Translations: [Acute Conjuctivitis] Resolved: 03-27-2013 03-27-2013 Episodic Malaise and fatigue (7 sources) Fatigue; Translations: [Other fatigue] Onset: 03-09-2023 03-09-2023 Episodic Other circulatory disease (1 source) Other symptoms involving cardiovascular system; Translations: [Carotid Bruits] 04-24-2019 Episodic Comment on above: carotid negative, bu t with atheromatous changes of the abdominal aorta Other lower respiratory disease (1 source) Shortness of breath; Translations: [SOB (shortness of breath)] 04-24-2019 Episodic Comment on above: with exertion, stron prisca FMX with this with mother, father and brother. she smokes, high chol. need to check heart. Other nervous system disorders (1 source) Disturbance of skin sensation; Translations: [PARASTHESIA] 04-24-2019 Episodic Comment on above: secondary to disc he rniationRt side down to foot Other nervous system disorders (1 source) Paresthesia of skin; Translations: [Paresthesia of skin] Onset: 12-11-2024 Episodic Other non-traumatic joint disorders (1 source) Pain in left wrist; Translations: [Pain in left wrist] Onset: 12-11-2024 Episodic Other screening for suspected conditions (not mental disorders or infectious disease) (1 source) Breast screening, unspecified; Translations: [SCREENING FOR BREAST CANCER] 04-24-2019 Episodic Other skin disorders (1 source) Cyst of skin; Translations: [Infected cyst of skin] 04-24-2019 Episodic Other skin disorders (3 sources) Hidradenitis; Translations: [Hidradenitis suppurativa] Onset: 03-26-2006 01-06-2024 Episodic Other skin disorders (3 sources) Acne; Translations: [Other acne] Onset: 03-26-2006 01-06-2024 Episodic Residual codes; unclassified (1 source) FH: Cardiovascular disease; Translations: [Family history of cardiovascular disease] 04-24-2019 Episodic Screening and history of mental health and substance abuse codes (1 source) Ex-smoker; Translations: [Former smoker] 04-24-2019 Episodic Unclassified (1 source) LUMBOSACRAL NEURITIS NOS; Translations: [LUMBOSACRAL NEURITIS NOS] Onset: 04-26-2014 Unclassified (8 sources) Unclassified (3 sources) Disorder, tobacco use (305.1) Unclassified (1 source) Deliveries (Parity); Translations: [Deliveries (Parity)] 04-24-2019 Comment on above: 2 (both c-sections) Unclassified (3 sources) Carotid Bruits (785.9) Unclassified (3 sources) Thyromegaly (240.9) Unclassified (2 sources) Stress incontinence, female (625.6) Unclassified (2 sources) PARASTHESIA (782.0) Unclassified (2 sources) Influenza vaccination declined; Translations: [Influenza vaccination declined (Renamed from Refused influenza vaccine)] 04-24-2019 Unclassified (1 source) Pregnancies (); Translations: [Pregnancies ()] 04-24-2019 Comment on above: 2 Unclassified (2 sources) DEFICIENCY, VITAMIN D NOS (268.9) Unclassified (1 source) LOW BACK PAIN WITH RADICULOPATHY (724.4) Unclassified (1 source) BMI 39.0-39.9,adult Unclassified (1 source) Former smoker Unclassified (1 source) Infected cyst of skin Unclassified (1 source) SCREENING FOR BREAST CANCER (V76.10) Unclassified (1 source) Family history of cardiovascular disease (V17.49) Unclassified (1 source) Acute Conjuctivitis (372.01) Unclassified (1 source) DISPLACEMENT, CERVICAL DISC W/O MYELOPATHY (722.0) Results Test Name Value Interpretation Reference Range Facility No Panel Informationon 05-02 Culture Urine 10,000 - 50,000 cfu/ ml Multiple bacterial morphotypes present. Probable Contamination. Suggest recollection if clinically indicated. [facility] .GFRon 04-27-2025 Estimated Glomerular Filtration Rate 90 ml/min/1.73sqm Normal [facility] Comment on above: Result Comment: Stages of Chronic Kidney Disease (CKD) Stage Description eGFR(ml/min/1.73 sq.m.) CKD 1 Normal kidney function or >=90 normal kindney function with possible kidney damage (ex. Proteinuria) CKD 2 Kidney damage with mild loss 60-89 of kidney function CKD 3a Mild to moderate loss of kidney 45-59 function CKD 3b Moderate to severe loss of 30-44 of kindey function CKD 4 Severe loss of kidney function 15-29 CKD 5 Kidney failure <15 Note: (go live 2024) the eGFR calculation was updated to the 2020 CKD-EPI creatinine equation without a race factor to calculate the eGFR results. Performed By: #### C BC, ADIFF, GFR, PRO, CMP, ANEU #### [address] [address] A1Con 04-27-2025 Glucose [Mass/Vol] 105 mg/dL Normal [facility] Comment on above: Result Comment: Myla mated Average Glucose calculated by equation ((28.7xA1C)-46.7) Estimated average glucose (eAG) is a calculated value from Hemoglobin A1C and is operations representative of the average blood glucose level in the last 2-3 month period. Normal range: less than 114 mg/dL Performed By: #### C BC, ADIFF, GFR, PRO, CMP, ANEU #### [id number] [place], [place] [address] HbA1c (Bld) [Mass fraction] 5.3 % Normal 4.3-6.4 [facility] Comment on above: Performed By: #### C BC, ADIFF, GFR, PRO, CMP, ANEU #### [id number] [place], [place] [address] CMPon 04-27-2025 Albumin Level 2.9 G/dL Low 3.5-5.0 [facility] Comment on above: Performed By: #### C BC, ADIFF, GFR, PRO, CMP, ANEU #### [address] [address] Albumin/Globulin [Mass ratio] 0.7 {ratio} Low 1.1-2.5 [facility] Comment on above: Performed By: #### C BC, ADIFF, GFR, PRO, CMP, ANEU #### [address] [place] [address] ALP [Catalytic activity/Vol] 349 U/L High 40-135 [facility] Comment on above: Performed By: #### C BC, ADIFF, GFR, PRO, CMP, ANEU #### [place] [address] ALT [Catalytic activity/Vol] 28 U/L Normal 14-59 [facility] Comment on above: Performed By: #### C BC, ADIFF, GFR, PRO, CMP, ANEU #### [place] [address] AST [Catalytic activity/Vol] 71 U/L High 10-40 [facility] Comment on above: Performed By: #### C BC, ADIFF, GFR, PRO, CMP, ANEU #### [place] [address] Bili Total 2.8 mg/dL High 0.2-1.0 [facility] Comment on above: Result Comment: Use of this assay is not recommended for patients undergoing treatment with eltrombopag due to the potential for falsely elevated results. Performed By: #### C BC, ADIFF, GFR, PRO, CMP, ANEU #### [place] [address] BUN/Creatinine Ratio 9 ratio Normal 7-27 [facility] Comment on above: Performed By: #### C BC, ADIFF, GFR, PRO, CMP, ANEU #### [place] [address] Calcium [Mass/Vol] 8.6 mg/dL Normal 8.4-10.2 [facility] Comment on above: Performed By: #### C BC, ADIFF, GFR, PRO, CMP, ANEU #### [place] [address] Chloride [Moles/Vol] 107 mmol/L Normal 98-107 [facility] Comment on above: Performed By: #### C BC, ADIFF, GFR, PRO, CMP, ANEU #### [place] [address] CO2 [Moles/Vol] 24 mmol/L Normal 22-29 [facility] Comment on above: Performed By: #### C BC, ADIFF, GFR, PRO, CMP, ANEU #### [place] [address] Creatinine [Mass/Vol] 0.76 mg/dL Normal 0.51-0.95 [facility] Comment on above: Performed By: #### C BC, ADIFF, GFR, PRO, CMP, ANEU #### [place] [address] Electrolyte Balance 6.0 mEq/L Normal 4.0-15.0 [facility] Comment on above: Performed By: #### C BC, ADIFF, GFR, PRO, CMP, ANEU #### [place] [address] Globulin 4.3 G/dL Normal 2.7-4.4 [facility] Comment on above: Performed By: #### C BC, ADIFF, GFR, PRO, CMP, ANEU #### [place] [address] Glucose [Mass/Vol] 149 mg/dL High 70-105 [facility] Comment on above: Performed By: #### C BC, ADIFF, GFR, PRO, CMP, ANEU #### [place] [address] Potassium [Moles/Vol] 4.4 mmol/L Normal 3.5-5.1 [facility] Comment on above: Performed By: #### C BC, ADIFF, GFR, PRO, CMP, ANEU #### [address] [address] Sodium [Moles/Vol] 137 mmol/L Normal 136-145 [facility] Comment on above: Performed By: #### C BC, ADIFF, GFR, PRO, CMP, ANEU #### [address] [address] Total Protein 7.2 G/dL Normal 6.4-8.2 [facility] Comment on above: Performed By: #### C BC, ADIFF, GFR, PRO, CMP, ANEU #### [place] [id number] [place], [place] [address] Urea nitrogen [Mass/Vol] 7 mg/dL Normal 7-18 [facility] Comment on above: Performed By: #### C BC, ADIFF, GFR, PRO, CMP, ANEU #### [address] [address] LABORATORYOrdered By: SYSTEM SYSTEM on 04-27-2025 Albumin BCP dye [Mass/Vol] 2.9 G/dL Low 3.5 - 5.0 G/dL AO ADM SS Albumin/Globulin [Mass ratio] 0.7 {ratio} Low 1.1 - 2.5 ratio AO ADM SS ALP [Catalytic activity/Vol] 349 U/L High 40 - 135 U/L AO ADM SS ALT With P-5'-P [Catalytic activity/Vol] 28 U/L Normal 14 - 59 U/L AO ADM SS AST With P-5'-P [Catalytic activity/Vol] 71 U/L High 10 - 40 U/L AO ADM SS Bilirubin [Mass/Vol] 2.8 mg/dL High 0.2 - 1 .0 mg/dL AO ADM SS Comment on above: Interpretive Data: U se of this assay is not recommended for patients undergoing treatment with eltrombopag due to the potential for falsely elevated results. Calcium [Mass/Vol] 8.6 mg/dL Normal 8.4 - 10. 2 mg/dL AO ADM SS Chloride [Moles/Vol] 107 mmol/L Normal 98 - 10 7 mmol/L AO ADM SS CO2 [Moles/Vol] 24 mmol/L Normal 22 - 29 mmol/L AO ADM SS Creatinine [Mass/Vol] 0.76 mg/dL Normal 0.51 - 0.95 mg/dL AO ADM SS Electrolyte Balance 6.0 mEq/L Normal 4.0 - 15 .0 mEq/L AO ADM SS Globulin 4.3 G/dL Normal 2.7 - 4.4 G/dL AO ADM SS GLOMERULAR FILTRATION RATE/1.73 SQ M.PREDICTED:ARVRAT:P T:SER/PLAS/BLD:QN:CR EATININE-BASED FORMULA (CKD-EPI 2020) 90 ml/min/1.73sqm Invalid Interpretation Code AO Chemistry S Comment on above: Interpretive Data: Stages of Chronic Kidney Disease (CKD) Stage Description eGFR(ml/min/1.73 sq.m.) CKD 1 Normal kidney function or >=90 normal kindney function with possible kidney damage (ex. Proteinuria) CKD 2 Kidney damage with mild loss 60-89 of kidney function CKD 3a Mild to moderate loss of kidney 45-59 function CKD 3b Moderate to severe loss of 30-44 of kindey function CKD 4 Severe loss of kidney function 15-29 CKD 5 Kidney failure <15 Note: (go live 2024) the eGFR calculation was updated to the 2020 CKD-EPI creatinine equation without a race factor to calculate the eGFR results. Glucose [Mass/Vol] 149 mg/dL High 70 - 105 mg/dL AO ADM SS Glucose [Mass/Vol] 105 mg/dL Invalid Interpretation Code AO Chemistry S Comment on above: Interpretive Data: E stimated average glucose (eAG) is a calculated value from Hemoglobin A1C and is operations representative of the average blood glucose level in the last 2-3 month period. Normal range: less than 114 mg/dL HbA1c (Bld) [Mass fraction] 5.3 % Normal 4.3 - 6.4 % AO ADM SS Magnesium [Mass/Vol] 1.9 mg/dL Normal 1.8 - 2 .4 mg/dL AO ADM SS Potassium [Moles/Vol] 4.4 mmol/L Normal 3.5 - 5.1 mmol/L AO ADM SS Protein [Mass/Vol] 7.2 G/dL Normal 6.4 - 8.2 G/dL AO ADM SS Sodium [Moles/Vol] 137 mmol/L Normal 136 - 145 mmol/L AO ADM SS Urea nitrogen [Mass/Vol] 7 mg/dL Normal 7 - 18 mg/dL AO ADM SS Urea nitrogen/Creatinine [Mass ratio] 9 ratio Normal 7 - 27 ratio AO ADM SS MGon 04-27-2025 Magnesium [Mass/Vol] 1.9 mg/dL Normal 1.8-2.4 [facility] Comment on above: Performed By: #### C BC, ADIFF, GFR, PRO, CMP, ANEU #### [facility] [address] [place], [place] [address] No Panel Informationon 04-25 Culture Urine 10,000 - 50,000 cfu/ ml Mixed growth consistent with normal urogenital patrice. [facility] Visit Reporton 1 Urgent Care Visit Report [facility] [address], [address] [place], [place] [id number] OFFICE VISIT Date of Service: 04/20/25 MR#: [id number] Acct: [id number] Name: SONDRA DUVAL Rep #: [id number] : 1965 Provider: AKBAR Randall Age/Sex: 59/F Location: [facility] Status: Signed Intake Vital Signs 04/23/22 15:22 04/20/25 14:52 Height 5 ft 4 in 5 ft 4 in Weight: 201 lb BMI 34.4 BP 128/60 H Blood Pressure Location Lt brachial Position Sitting Pulse 79 Pulse Source Monitor Temp 98.1 F Temp Source Oral Pulse Oximetry (%) 97 Oxygen Delivery Method room air Intake Visit Reasons: Urinary tract infection Chief Complaint: UTI Accompanied by: Self Allergies Penicillins Allergy (Verified 04/20/25 14:51) Hives Medications ???Medication ???Instructions ???Recorded ???Confirmed ???Type aspirin 81 mg tablet,delayed 81 mg PO QHS 06/03/20 04/20/25 His tory release evolocumab 140 mg/mL subcutaneous mg subcut 04/20/25 04/20/25 Histo ry pen injector (Nena Mendoza) nitrofurantoin 1 cap PO Q12H 7 days #14 caps 03/2904/20/25 Rx monohydrate/macrocrystals 100 mg capsule potassium chloride 10 mEq 10 meq PO BID 04/20/25 04/20/25 Hi story capsule,extended release tirzepatide 12.5 mg/0.5 mL 12.5 mg subcut QWEEK 04/20/2503/29 History subcutaneous pen injector (Cami) Nurse's Note: Blood in urine, frequency, urgency, feels like bladder is not completely emptying. Started today. [facility] Medical History Atherosclerotic heart disease of [place] coronary artery without angina pectoris History of [place] (myocardial infarction) Hyperlipidemia Mixed hyperlipidemia Tobacco abuse Type 2 diabetes mellitus Surgical History Aortocoronary bypass status ( 10/01/15) H/O arthroscopy of right knee H/O section History of hysterectomy History of laminectomy History of oophorectomy History of total knee arthroplasty ( 06/20/21) Family History Father CAD (coronary artery disease) CVA (cerebral vascular accident) Hypertension Mother CVA (cerebral vascular accident) Heart disease Brother Myocardial infarction, Onset Age: 50 Sister CVA (cerebral vascular accident) Atrial fibrillation Social History Smoking Status: Former smoker alcohol intake: never substance use type: does not use caffeine: Yes (occasional) [facility] HPI Chief Complaint: UTI Details: SONDRA DUVAL, is a 59 F who presents to the office today for complaint of increasing urgency and frequency as well as moderate dysuria for the past several days. Patient denies fever, chills, sweats. No nausea, vomiting or diarrhea. No pelvic or abdominal pain. No loss of taste or smell. No other associated symptoms or alleviating/aggravating factors. ROS Const Constitutional: No other (6 system ROS completed with pertinent findings in the HPI otherwise normal.) Exam Const General: cooperative and healthy appearing Resp Effort Inspection: normal respiratory effort Cardio Rate: regular rate GI Auscultation: normal bowel sounds General: No CVA tenderness Psych Appearance: grossly normal Mental Status: mental status grossly normal Results POC Urinalysis Dip (Clinic) Office Urine Color RED Last Edit by Karly Ramires on 04/20/25 15:10 Office Urine Clarity Hazy Last Edit by Karly Ramires on 04/20/25 15:10 Office Urine Glucose Negative Last Edit by Karly Ramires on 04/20/25 15:10 Office Urine Ketones Negative Last Edit by Karly Ramires on 04/20/25 15:10 Off Ur Spec [place] >1.030 Last Edit by Karly Ramires on 04/20/25 15:10 Office Urine pH 6.0 Last Edit by Karly Ramires on 04/20/25 15:10 Office Urine Bilirubin Moderate (2+) Last Edit by Karly Ramires on 04/20/25 15:10 Office Urine Urobilinogen Negative Last Edit by Karly Ramires on 04/20/25 15:10 Office Urine Blood Negative Last Edit by Karly Ramires on 04/20/25 15:10 Office Urine Blood Hemolyzed Large Last Edit by Karly Ramires on 04/20/25 15:10 Office Urine Protein 2+ Last Edit by Karly Ramires on 04/20/25 15:10 Office Urine Nitrate Negative Last Edit by Karly Ramires on 04/20/25 15:10 Off Ur Leukocytes Positive Last Edit by Karly Ramires on 04/20/25 15:10 Coding Level of Care Code Off vis,new,level 3 Diagnoses Urinary tract infection N39.0 Assessment and Plan Assessment and Plan (1) Urinary tract infection: Plan: Macrobid as prescribed today. Encouraged to get plenty of rest, drink lots of clear liquids, and use Tylenol or Ibuprofen (unless contraindic (more content not included)... Normal [facility] LABORATORYOrdered By: Yadira Whitt on 03-17-2025 Cholesterol [Mass/Vol] 230 mg/dL High 0 - 200 mg/dL AO ADM SS Comment on above: Interpretive Data: C holesterol Reference Interval: Less than 200 Desirable 200-239 Borderline high risk 240 and above High risk Cholesterol in HDL [Mass/Vol] 59 mg/dL Normal 40 - 60 mg/dL AO ADM SS Cholesterol in LDL [Mass/Vol] 149 mg/dL High 0 - 130 mg/dL AO ADM SS Triglyceride [Mass/Vol] 110 mg/dL Normal 0 - 150 mg/dL AO ADM SS Comment on above: Interpretive Data: T riglyceride Reference Interval: Less than 150 Normal 150-199 Borderline high risk 200-499 High risk 500 or higher Very high risk LIPIDon 03-17-2025 Cholesterol [Mass/Vol] 230 mg/dL High 0-200 [facility] Comment on above: Result Comment: Chol esterol Reference Interval: Less than 200 Desirable 200-239 Borderline high risk 240 and above High risk Performed By: #### C BC, ADIFF, GFR, PRO, CMP, ANEU #### [place] [address] Cholesterol in HDL [Mass/Vol] 59 mg/dL Normal 40-60 [facility] Comment on above: Performed By: #### C BC, ADIFF, GFR, PRO, CMP, ANEU #### [place] [address] Cholesterol in LDL [Mass/Vol] 149 mg/dL High 0-130 [facility] Comment on above: Performed By: #### C BC, ADIFF, GFR, PRO, CMP, ANEU #### [place] [address] Triglyceride [Mass/Vol] 110 mg/dL Normal 0-150 [facility] Comment on above: Result Comment: Trig lyceride Reference Interval: Less than 150 Normal 150-199 Borderline high risk 200-499 High risk 500 or higher Very high risk Performed By: #### C BC, ADIFF, GFR, PRO, CMP, ANEU #### [address] [address] .Auto Diffon 01-31-2025 Basophil, Absolute 0.0 10 3/mcL Normal 0.0-0.3 [facility] Comment on above: Performed By: #### C BC, ADIFF, GFR, PRO, CMP, ANEU #### [place] [id number] Basophils/100 WBC (Bld) 0.3 % Normal 0.0-2.5 [facility] Comment on above: Performed By: #### C BC, ADIFF, GFR, PRO, CMP, ANEU #### [place] [address] Eosinophil, Absolute 0.3 10 3/mcL Normal 0.0-0.7 [facility] Comment on above: Performed By: #### C BC, ADIFF, GFR, PRO, CMP, ANEU #### [address] [address] Eosinophils/100 WBC (Bld) 6.7 % High 0.0-6.0 [facility] Comment on above: Performed By: #### C BC, ADIFF, GFR, PRO, CMP, ANEU #### [address] [address] Lymphocyte, Absolute 1.1 10 3/mcL Normal 0.9-4.3 [facility] Comment on above: Performed By: #### C BC, ADIFF, GFR, PRO, CMP, ANEU #### [address] [address] Lymphocytes/100 WBC (Bld) 23.4 % Normal 20.0-40.0 [facility] Comment on above: Performed By: #### C BC, ADIFF, GFR, PRO, CMP, ANEU #### [address] [address] Monocyte, Absolute 0.5 10 3/mcL Normal 0.1-1.4 [facility] Comment on above: Performed By: #### C BC, ADIFF, GFR, PRO, CMP, ANEU #### [address] [address] Monocytes/100 WBC (Bld) 9.9 % Normal 2.0-13.0 [facility] Comment on above: Performed By: #### C BC, ADIFF, GFR, PRO, CMP, ANEU #### [address] [address] Neutrophils/100 WBC (Bld) 59.7 % Normal 50.0-75.0 [facility] Comment on above: Performed By: #### C BC, ADIFF, GFR, PRO, CMP, ANEU #### [address] [address] .GFRon 01-31-2025 Estimated Glomerular Filtration Rate 72 ml/min/1.73sqm Normal [facility] Comment on above: Result Comment: Stages of Chronic Kidney Disease (CKD) Stage Description eGFR(ml/min/1.73 sq.m.) CKD 1 Normal kidney function or >=90 normal kindney function with possible kidney damage (ex. Proteinuria) CKD 2 Kidney damage with mild loss 60-89 of kidney function CKD 3a Mild to moderate loss of kidney 45-59 function CKD 3b Moderate to severe loss of 30-44 of kindey function CKD 4 Severe loss of kidney function 15-29 CKD 5 Kidney failure <15 Note: (go live 2024) the eGFR calculation was updated to the 2020 CKD-EPI creatinine equation without a race factor to calculate the eGFR results. Performed By: #### C BC, ADIFF, GFR, PRO, CMP, ANEU #### [place] [id number] .NEUABSon 01-31-2025 Neutrophil, Absolute 2.8 10 3/mcL Normal 2.3-8.1 [facility] Comment on above: Performed By: #### C BC, ADIFF, GFR, PRO, CMP, ANEU #### [place] [id number] CBCon 01-31-2025 Erythrocyte distribution width (RBC) [Ratio] 15.4 % Normal 11.5-15.5 [facility] Comment on above: Performed By: #### C BC, ADIFF, GFR, PRO, CMP, ANEU #### [place] [address] Hematocrit (Bld) [Volume fraction] 34.0 % Normal 34.0-46.0 [facility] Comment on above: Performed By: #### C BC, ADIFF, GFR, PRO, CMP, ANEU #### [place] [address] Hgb 11.8 G/dL Low 12.0-16.0 [facility] Comment on above: Performed By: #### C BC, ADIFF, GFR, PRO, CMP, ANEU #### [place] [address] MCH (RBC) [Entitic mass] 36.6 pg High 27.0-33.0 [facility] Comment on above: Performed By: #### C BC, ADIFF, GFR, PRO, CMP, ANEU #### [address] [address] MCHC 34.7 G/dL Normal 32.0-36.0 [facility] Comment on above: Performed By: #### C BC, ADIFF, GFR, PRO, CMP, ANEU #### [address] [address] MCV (RBC) [Entitic vol] 105.4 fL High 80.0-99.0 [facility] Comment on above: Performed By: #### C BC, ADIFF, GFR, PRO, CMP, ANEU #### [address] [address] Platelet 73 10 3/mcL Low 150-450 [facility] Comment on above: Performed By: #### C BC, ADIFF, GFR, PRO, CMP, ANEU #### [address] [address] Platelet mean volume (Bld) [Entitic vol] 10.3 fL Normal 6.6-10.5 [facility] Comment on above: Performed By: #### C BC, ADIFF, GFR, PRO, CMP, ANEU #### [address] [address] RBC 3.22 10 6/mcL Low 4.10-5.30 [facility] Comment on above: Performed By: #### C BC, ADIFF, GFR, PRO, CMP, ANEU #### [address] [address] WBC 4.7 10 3/mcL Normal 4.5-10.8 [facility] Comment on above: Performed By: #### C BC, ADIFF, GFR, PRO, CMP, ANEU #### [address] [address] CMPon 01-31-2025 Albumin Level 2.6 G/dL Low 3.5-5.0 [facility] Comment on above: Performed By: #### C BC, ADIFF, GFR, PRO, CMP, ANEU #### [place] [address] Albumin/Globulin [Mass ratio] 0.7 {ratio} Low 1.1-2.5 [facility] Comment on above: Performed By: #### C BC, ADIFF, GFR, PRO, CMP, ANEU #### [place] [address] ALP [Catalytic activity/Vol] 213 U/L High 40-135 [facility] Comment on above: Performed By: #### C BC, ADIFF, GFR, PRO, CMP, ANEU #### [place] [address] ALT [Catalytic activity/Vol] 53 U/L Normal 14-59 [facility] Comment on above: Performed By: #### C BC, ADIFF, GFR, PRO, CMP, ANEU #### [place] [address] AST [Catalytic activity/Vol] 63 U/L High 10-40 [facility] Comment on above: Performed By: #### C BC, ADIFF, GFR, PRO, CMP, ANEU #### [address] [address] Bili Total 3.2 mg/dL High 0.2-1.0 [facility] Comment on above: Result Comment: Use of this assay is not recommended for patients undergoing treatment with eltrombopag due to the potential for falsely elevated results. Performed By: #### C BC, ADIFF, GFR, PRO, CMP, ANEU #### [place] [id number] BUN/Creatinine Ratio 8 ratio Normal 7-27 [facility] Comment on above: Performed By: #### C BC, ADIFF, GFR, PRO, CMP, ANEU #### [place] [address] Calcium [Mass/Vol] 8.9 mg/dL Normal 8.4-10.2 [facility] Comment on above: Performed By: #### C BC, ADIFF, GFR, PRO, CMP, ANEU #### [place] [address] Chloride [Moles/Vol] 104 mmol/L Normal 98-107 [facility] Comment on above: Performed By: #### C BC, ADIFF, GFR, PRO, CMP, ANEU #### [place] [address] CO2 [Moles/Vol] 28 mmol/L Normal 22-29 [facility] Comment on above: Performed By: #### C BC, ADIFF, GFR, PRO, CMP, ANEU #### [place] [address] Creatinine [Mass/Vol] 0.92 mg/dL Normal 0.51-0.95 [facility] Comment on above: Performed By: #### C BC, ADIFF, GFR, PRO, CMP, ANEU #### [place] [address] Electrolyte Balance 7.0 mEq/L Normal 4.0-15.0 [facility] Comment on above: Performed By: #### C BC, ADIFF, GFR, PRO, CMP, ANEU #### [address] [address] Globulin 3.9 G/dL Normal 2.7-4.4 [facility] Comment on above: Performed By: #### C BC, ADIFF, GFR, PRO, CMP, ANEU #### [place] [address] Glucose [Mass/Vol] 130 mg/dL High 70-105 [facility] Comment on above: Performed By: #### C BC, ADIFF, GFR, PRO, CMP, ANEU #### [place] [address] Potassium [Moles/Vol] 4.1 mmol/L Normal 3.5-5.1 [facility] Comment on above: Performed By: #### C BC, ADIFF, GFR, PRO, CMP, ANEU #### [place] [id number] [place], [place] [address] Sodium [Moles/Vol] 139 mmol/L Normal 136-145 [facility] Comment on above: Performed By: #### C BC, ADIFF, GFR, PRO, CMP, ANEU #### [place] [id number] [place], [place] [address] Total Protein 6.5 G/dL Normal 6.4-8.2 [facility] Comment on above: Performed By: #### C BC, ADIFF, GFR, PRO, CMP, ANEU #### [place] [id number] [place], [place] [address] Urea nitrogen [Mass/Vol] 7 mg/dL Normal 7-18 [facility] Comment on above: Performed By: #### C BC, ADIFF, GFR, PRO, CMP, ANEU #### [place] [address] LABORATORYOrdered By: SYSTEM SYSTEM on 01-31-2025 Albumin BCP dye [Mass/Vol] 2.6 G/dL Low 3.5 - 5.0 G/dL AO ADM SS Albumin/Globulin [Mass ratio] 0.7 {ratio} Low 1.1 - 2.5 ratio AO ADM SS ALP [Catalytic activity/Vol] 213 U/L High 40 - 135 U/L AO ADM SS ALT With P-5'-P [Catalytic activity/Vol] 53 U/L Normal 14 - 59 U/L AO ADM SS AST With P-5'-P [Catalytic activity/Vol] 63 U/L High 10 - 40 U/L AO ADM SS Basophils (Bld) [#/Vol] 0.0 103/mcL Normal 0.0 - 0.3 10^3/mcL AO Workflow SS Basophils/100 WBC (Bld) 0.3 % Normal 0.0 - 2.5 % AO Workflow SS Bilirubin [Mass/Vol] 3.2 mg/dL High 0.2 - 1 .0 mg/dL AO ADM SS Comment on above: Interpretive Data: U se of this assay is not recommended for patients undergoing treatment with eltrombopag due to the potential for falsely elevated results. Calcium [Mass/Vol] 8.9 mg/dL Normal 8.4 - 10. 2 mg/dL AO ADM SS Chloride [Moles/Vol] 104 mmol/L Normal 98 - 10 7 mmol/L AO ADM SS CO2 [Moles/Vol] 28 mmol/L Normal 22 - 29 mmol/L AO ADM SS Creatinine [Mass/Vol] 0.92 mg/dL Normal 0.51 - 0.95 mg/dL AO ADM SS Electrolyte Balance 7.0 mEq/L Normal 4.0 - 15 .0 mEq/L AO ADM SS Eosinophil, Absolute 0.3 103/mcL Normal 0.0 - 0 .7 10^3/mcL AO Workflow SS Eosinophils/100 WBC (Bld) 6.7 % High 0.0 - 6.0 % AO Workflow SS Erythrocyte distribution width (RBC) [Ratio] 15.4 % Normal 11.5 - 15.5 % AO Workflow SS Estimated Glomerular Filtration Rate 72 ml/min/1.73sqm Invalid Interpretation Code AO Chemistry S Comment on above: Interpretive Data: Stages of Chronic Kidney Disease (CKD) Stage Description eGFR(ml/min/1.73 sq.m.) CKD 1 Normal kidney function or >=90 normal kindney function with possible kidney damage (ex. Proteinuria) CKD 2 Kidney damage with mild loss 60-89 of kidney function CKD 3a Mild to moderate loss of kidney 45-59 function CKD 3b Moderate to severe loss of 30-44 of kindey function CKD 4 Severe loss of kidney function 15-29 CKD 5 Kidney failure <15 Note: (go live 2024) the eGFR calculation was updated to the 2020 CKD-EPI creatinine equation without a race factor to calculate the eGFR results. Globulin 3.9 G/dL Normal 2.7 - 4.4 G/dL AO ADM SS Glucose [Mass/Vol] 130 mg/dL High 70 - 105 mg/dL AO ADM SS Hematocrit (Bld) [Volume fraction] 34.0 % Normal 34.0 - 46.0 % AO Workflow SS Hemoglobin (Bld) [Mass/Vol] 11.8 G/dL Low 12.0 - 16.0 G/dL AO Workflow SS INR Coag (PPP) [Relative time] 1.4 {INR} Invalid Interpretation Code AO HemoHub SS Comment on above: Interpretive Data: Finesse davis [employer] [place] [employer] (CHEST, 1992, 102:312S-25S) recommended therapeutic range for oral anticoagulant therapy is: LOW RISK: Prophylaxis of venous thrombosis INR: 2.0-3.0 Treatment of pulmonary embolism 2.0-3.0 Prevention of systemic embolism 2.0-3.0 HIGH RISK: Mechanical prosthetic valves 2.5-3.5 Lymphocytes (Bld) [#/Vol] 1.1 103/mcL Normal 0.9 - 4.3 10^3/mcL AO Workflow SS Lymphocytes/100 WBC (Bld) 23.4 % Normal 20.0 - 40.0 % AO Workflow SS MCH (RBC) [Entitic mass] 36.6 pg High 27.0 - 33.0 pg AO Workflow SS MCHC 34.7 G/dL Normal 32.0 - 36.0 G/dL AO Workflow SS MCV (RBC) [Entitic vol] 105.4 fL High 80.0 - 99.0 fL AO Workflow SS Monocytes (Bld) [#/Vol] 0.5 103/mcL Normal 0.1 - 1.4 10^3/mcL AO Workflow SS Monocytes/100 WBC (Bld) 9.9 % Normal 2.0 - 13.0 % AO Workflow SS Neutrophils (Bld) [#/Vol] 2.8 103/mcL Normal 2.3 - 8.1 10^3/mcL AO Workflow SS Neutrophils/100 WBC (Bld) 59.7 % Normal 50.0 - 75.0 % AO Workflow SS Platelet mean volume (Bld) [Entitic vol] 10.3 fL Normal 6.6 - 10.5 fL AO Workflow SS Platelets (Bld) [#/Vol] 73 103/mcL Low 150 - 450 10^3/mcL AO Workflow SS Potassium [Moles/Vol] 4.1 mmol/L Normal 3.5 - 5.1 mmol/L AO ADM SS Protein [Mass/Vol] 6.5 G/dL Normal 6.4 - 8.2 G/dL AO ADM SS PT Coag (PPP) [Time] 16.7 s High 9.0 - 1 4.4 seconds AO Hemo[facility] SS Comment on above: Result Comment: No c lot-ok - [id number] - 01/31/25, 11:33 AM RBC (Bld) [#/Vol] 3.22 106/mcL Low 4.10 - 5.30 10^6/mcL AO Workflow SS Sodium [Moles/Vol] 139 mmol/L Normal 136 - 145 mmol/L AO ADM SS Urea nitrogen [Mass/Vol] 7 mg/dL Normal 7 - 18 mg/dL AO ADM SS Urea nitrogen/Creatinine [Mass ratio] 8 ratio Normal 7 - 27 ratio AO ADM SS WBC (Bld) [#/Vol] 4.7 103/mcL Normal 4.5 - 10.8 10^3/mcL AO Workflow SS PROon 01-31-2025 PT Coag (PPP) [Time] 16.7 s High 9.0-14.4 [facility] Comment on above: Result Comment: No c lot-ok - [id number] - 01/31/25, 11:33 AM Performed By: #### C BC, ADIFF, GFR, PRO, CMP, ANEU #### [address] [address] PT International Ratio 1.4 Normal [facility] Comment on above: Result Comment: [employer] [place] [employer] (CHEST, 1992, 102:312S-25S) recommended therapeutic range for oral anticoagulant therapy is: LOW RISK: Prophylaxis of venous thrombosis INR: 2.0-3.0 Treatment of pulmonary embolism 2.0-3.0 Prevention of systemic embolism 2.0-3.0 HIGH RISK: Mechanical prosthetic valves 2.5-3.5 Performed By: #### C BC, ADIFF, GFR, PRO, CMP, ANEU #### [address] [address] Final Surgical Pathology Rep [facility] 01-30-2025 Final Surgical Pathology Report . Pathology Reports Accession: Collected Date/Time: Received Date/Time: Pathologist: [id number] 01/26/2025 11:40 EDT 01/29/2025 07:35 EDT NADIA BAGLEY MD Final Surgical Pathology Report DIAGNOSIS: GALLBLADDER: - CHRONIC CHOLECYSTITIS WITH CHOLELITHIASIS CLINICAL INFORMATION: Procedure: ROBOTIC CHOLECYSTECTOMY Preoperative diagnosis: CHOLECYSTITIS Postoperative diagnosis: CHOLECYSTITIS SPECIMEN: A GALLBLADDER GROSS DESCRIPTION: All parts labelled with patient name and [id number] Received in formalin, labeled gallbladder is a previously with a small amount of hemorrhage and a single slightly spiculated oval black calculus loose within the container. This calculus measures 0.9 x 0.8 x 0.8 cm in greatest dimension. The gallbladder itself when roughly reconstructed measures 7.2 x 3.5 x 1.3 cm greatest dimension. The external surface shows operative artifact. The cystic duct margin is closed by a white plastic clip. A lymph node is not identified. The mucosa is smooth and brown-rogers, without mass lesion or thickened area.. RS-1 Kel Carvalho MD Performed by KEL CARVALHO MICROSCOPIC DESCRIPTION: The microscopic examination is performed, except in the case of Gross Only. Verified by Pathology Report verified by [facility] NADIA BAGLEY Sign out Date: 01/30/2025 14:53 Performing Lab: [facility], [facility] [place] [address] [place] [id number] [place] [address] Pathology Dept Disclaimer If ancillary studies were utilized, the following Laboratory Developed Test (LDT) disclaimer will apply: Under CLIA requirements, [facility] is qualified to perform high complexity testing. For all ancillary stains, positive and negative controls stain appropriately. Performance characteristics of immunohistochemical and chromogenic in-situ hybridization tests have been determined by [facility]. These tests are used for clinical purposes, They should not be regarded as investigational or for research. Normal [facility] .Auto Diffon 01-28-2025 Basophil, Absolute 0.0 10 3/mcL Normal 0.0-0.3 [facility] Comment on above: Performed By: #### P RO, GFR, CMP, ADIFF, ANEU, CBC ####[address] [address] Basophils/100 WBC (Bld) 0.2 % Normal 0.0-2.5 [facility] Comment on above: Performed By: #### P RO, GFR, CMP, ADIFF, ANEU, CBC ####[address] [address] Eosinophil, Absolute 0.1 10 3/mcL Normal 0.0-0.7 [facility] Comment on above: Performed By: #### P RO, GFR, CMP, ADIFF, ANEU, CBC ####[address] [address] Eosinophils/100 WBC (Bld) 2.0 % Normal 0.0-6.0 [facility] Comment on above: Performed By: #### P RO, GFR, CMP, ADIFF, ANEU, CBC ####[address] [address] Lymphocyte, Absolute 1.1 10 3/mcL Normal 0.9-4.3 [facility] Comment on above: Performed By: #### P RO, GFR, CMP, ADIFF, ANEU, CBC ####[address] [address] Lymphocytes/100 WBC (Bld) 15.6 % Low 20.0-40.0 [facility] Comment on above: Performed By: #### P RO, GFR, CMP, ADIFF, ANEU, CBC ####[address] [address] Monocyte, Absolute 0.6 10 3/mcL Normal 0.1-1.4 [facility] Comment on above: Performed By: #### P RO, GFR, CMP, ADIFF, ANEU, CBC ####[address] [address] Monocytes/100 WBC (Bld) 8.0 % Normal 2.0-13.0 [facility] Comment on above: Performed By: #### P RO, GFR, CMP, ADIFF, ANEU, CBC ####[address] [address] Neutrophils/100 WBC (Bld) 74.2 % Normal 50.0-75.0 [facility] Comment on above: Performed By: #### P RO, GFR, CMP, ADIFF, ANEU, CBC ####[address] [address] .GFRon 01-28-2025 Estimated Glomerular Filtration Rate 96 ml/min/1.73sqm Normal [facility] Comment on above: Result Comment: Stages of Chronic Kidney Disease (CKD) Stage Description eGFR(ml/min/1.73 sq.m.) CKD 1 Normal kidney function or >=90 normal kindney function with possible kidney damage (ex. Proteinuria) CKD 2 Kidney damage with mild loss 60-89 of kidney function CKD 3a Mild to moderate loss of kidney 45-59 function CKD 3b Moderate to severe loss of 30-44 of kindey function CKD 4 Severe loss of kidney function 15-29 CKD 5 Kidney failure <15 Note: (go live 2024) the eGFR calculation was updated to the 2020 CKD-EPI creatinine equation without a race factor to calculate the eGFR results. Performed By: #### P RO, GFR, CMP, ADIFF, ANEU, CBC #### [address] [address] .NEUABSon 01-28-2025 Neutrophil, Absolute 5.1 10 3/mcL Normal 2.3-8.1 [facility] Comment on above: Performed By: #### P RO, GFR, CMP, ADIFF, ANEU, CBC ####[place] [address] CBCon 01-28-2025 Erythrocyte distribution width (RBC) [Ratio] 14.8 % Normal 11.5-15.5 [facility] Comment on above: Performed By: #### P RO, GFR, CMP, ADIFF, ANEU, CBC ####[place] [address] Hematocrit (Bld) [Volume fraction] 31.1 % Low 34.0-46.0 [facility] Comment on above: Performed By: #### P RO, GFR, CMP, ADIFF, ANEU, CBC ####[place] [address] Hgb 10.9 G/dL Low 12.0-16.0 [facility] Comment on above: Performed By: #### P RO, GFR, CMP, ADIFF, ANEU, CBC ####[place] [address] MCH (RBC) [Entitic mass] 36.5 pg High 27.0-33.0 [facility] Comment on above: Performed By: #### P RO, GFR, CMP, ADIFF, ANEU, CBC ####[place] [address] MCHC 35.1 G/dL Normal 32.0-36.0 [facility] Comment on above: Performed By: #### P RO, GFR, CMP, ADIFF, ANEU, CBC ####[address] [address] MCV (RBC) [Entitic vol] 104.1 fL High 80.0-99.0 [facility] Comment on above: Performed By: #### P RO, GFR, CMP, ADIFF, ANEU, CBC ####[address] [address] Platelet 71 10 3/mcL Low 150-450 [facility] Comment on above: Performed By: #### P RO, GFR, CMP, ADIFF, ANEU, CBC ####[place] [address] Platelet mean volume (Bld) [Entitic vol] 10.5 fL Normal 6.6-10.5 [facility] Comment on above: Performed By: #### P RO, GFR, CMP, ADIFF, ANEU, CBC ####[place] [address] RBC 2.98 10 6/mcL Low 4.10-5.30 [facility] Comment on above: Performed By: #### P RO, GFR, CMP, ADIFF, ANEU, CBC ####[place] [address] WBC 6.9 10 3/mcL Normal 4.5-10.8 [facility] Comment on above: Performed By: #### P RO, GFR, CMP, ADIFF, ANEU, CBC ####[place] [address] CMPon 01-28-2025 Albumin Level 2.8 G/dL Low 3.2-4.8 [facility] Comment on above: Performed By: #### P RO, GFR, CMP, ADIFF, ANEU, CBC #### [place] [address] Albumin/Globulin [Mass ratio] 0.8 {ratio} Low 0.9-1.6 [facility] Comment on above: Performed By: #### P RO, GFR, CMP, ADIFF, ANEU, CBC #### [place] [address] ALP [Catalytic activity/Vol] 161 U/L High 38-126 [facility] Comment on above: Performed By: #### P RO, GFR, CMP, ADIFF, ANEU, CBC #### [address] [address] ALT [Catalytic activity/Vol] 35 U/L Normal 10-49 [facility] Comment on above: Performed By: #### P RO, GFR, CMP, ADIFF, ANEU, CBC #### [address] [address] AST [Catalytic activity/Vol] 57 U/L High 8-34 [facility] Comment on above: Performed By: #### P RO, GFR, CMP, ADIFF, ANEU, CBC #### [address] [address] Bili Total 3.10 mg/dL High 0.20-1.20 [facility] Comment on above: Result Comment: Use of this assay is not recommended for patients undergoing treatment with eltrombopag due to the potential for falsely elevated results. Performed By: #### P RO, GFR, CMP, ADIFF, ANEU, CBC #### [address] [address] BUN/Creatinine Ratio 15.3 ratio Normal 10.0-22.0 [facility] Comment on above: Performed By: #### P RO, GFR, CMP, ADIFF, ANEU, CBC #### [address] [address] Calcium [Mass/Vol] 8.4 mg/dL Low 8.7-10.4 [facility] Comment on above: Performed By: #### P RO, GFR, CMP, ADIFF, ANEU, CBC #### [address] [address] Chloride [Moles/Vol] 107 mmol/L Normal 98-110 [facility] Comment on above: Performed By: #### P RO, GFR, CMP, ADIFF, ANEU, CBC #### [address] [address] CO2 [Moles/Vol] 26 mmol/L Normal 22-32 [facility] Comment on above: Performed By: #### P RO, GFR, CMP, ADIFF, ANEU, CBC #### [place] [id number] Creatinine [Mass/Vol] 0.72 mg/dL Normal 0.50-1.20 [facility] Comment on above: Result Comment: Test ing performed on ArticleAlley analyzer using enzymatic creatinine methodology. Performed By: #### P RO, GFR, CMP, ADIFF, ANEU, CBC #### [place] [id number] Electrolyte Balance 7.0 mEq/L Normal 4.0-15.0 [facility] Comment on above: Performed By: #### P RO, GFR, CMP, ADIFF, ANEU, CBC #### [address] [address] Globulin 3.4 G/dL Normal 2.5-4.2 [facility] Comment on above: Performed By: #### P RO, GFR, CMP, ADIFF, ANEU, CBC #### [place] [id number] Glucose [Mass/Vol] 133 mg/dL High 70-110 [facility] Comment on above: Performed By: #### P RO, GFR, CMP, ADIFF, ANEU, CBC #### [place] [id number] Potassium [Moles/Vol] 4.0 mmol/L Normal 3.5-5.0 [facility] Comment on above: Performed By: #### P RO, GFR, CMP, ADIFF, ANEU, CBC #### [place] [id number] Sodium [Moles/Vol] 140 mmol/L Normal 136-145 [facility] Comment on above: Performed By: #### P RO, GFR, CMP, ADIFF, ANEU, CBC #### [place] [id number] Total Protein 6.2 G/dL Normal 5.7-8.2 [facility] Comment on above: Performed By: #### P RO, GFR, CMP, ADIFF, ANEU, CBC #### [address] [address] Urea nitrogen [Mass/Vol] 11.0 mg/dL Normal 8.0-22.0 [facility] Comment on above: Performed By: #### P RO, GFR, CMP, ADIFF, ANEU, CBC #### [place] [address] HHon 01-28-2025 Hematocrit (Bld) [Volume fraction] 29.9 % Low 34.0-46.0 [facility] Comment on above: Performed By: #### A MEAGAN HARRIS #### [place] [address] Hgb 10.6 G/dL Low 12.0-16.0 [facility] Comment on above: Performed By: #### A MEAGAN HARRIS #### [place] [address] Hematocrit (Bld) [Volume fraction] 29.1 % Low 34.0-46.0 [facility] Comment on above: Performed By: #### H H #### [place] [address] Hgb 10.3 G/dL Low 12.0-16.0 [facility] Comment on above: Performed By: #### H H #### [place] [address] LABORATORYOrdered By: SYSTEM SYSTEM on 01-28-2025 Hematocrit (Bld) [Volume fraction] 29.9 % Low 34.0 - 46.0 % Workflow SS Hemoglobin (Bld) [Mass/Vol] 10.6 G/dL Low 12.0 - 16.0 G/dL AH Workflow SS Albumin BCP dye [Mass/Vol] 2.8 G/dL Low 3.2 - 4.8 G/dL ADM SS Albumin/Globulin [Mass ratio] 0.8 {ratio} Low 0.9 - 1.6 ratio ADM SS ALP [Catalytic activity/Vol] 161 U/L High 38 - 126 U/L ADM SS ALT No additional P-5'-P [Catalytic activity/Vol] 35 U/L Normal 10 - 49 U/L ADM SS AST [Catalytic activity/Vol] 57 U/L High 8 - 34 U/L ADM SS Basophils (Bld) [#/Vol] 0.0 103/mcL Normal 0.0 - 0.3 10^3/mcL Workflow SS Basophils/100 WBC (Bld) 0.2 % Normal 0.0 - 2.5 % Workflow SS Bilirubin [Mass/Vol] 3.10 mg/dL High 0.20 - 1.20 mg/dL ADM SS Comment on above: Interpretive Data: U se of this assay is not recommended for patients undergoing treatment with eltrombopag due to the potential for falsely elevated results. Calcium [Mass/Vol] 8.4 mg/dL Low 8.7 - 10. 4 mg/dL ADM SS Chloride [Moles/Vol] 107 mmol/L Normal 98 - 11 0 mEq/L ADM SS CO2 [Moles/Vol] 26 mmol/L Normal 22 - 32 mEq/L ADM SS Creatinine [Mass/Vol] 0.72 mg/dL Normal 0.50 - 1.20 mg/dL ADM SS Comment on above: Interpretive Data: T esting performed on ArticleAlley analyzer using enzymatic creatinine methodology. Electrolyte Balance 7.0 mEq/L Normal 4.0 - 15 .0 mEq/L ADM SS Eosinophils (Bld) [#/Vol] 0.1 103/mcL Normal 0.0 - 0.7 10^3/mcL Workflow SS Eosinophils/100 WBC (Bld) 2.0 % Normal 0.0 - 6.0 % Workflow SS Erythrocyte distribution width (RBC) [Ratio] 14.8 % Normal 11.5 - 15.5 % Workflow SS Estimated Glomerular Filtration Rate 96 ml/min/1.73sqm Invalid Interpretation Code Chemistry S Comment on above: Interpretive Data: Stages of Chronic Kidney Disease (CKD) Stage Description eGFR(ml/min/1.73 sq.m.) CKD 1 Normal kidney function or >=90 normal kindney function with possible kidney damage (ex. Proteinuria) CKD 2 Kidney damage with mild loss 60-89 of kidney function CKD 3a Mild to moderate loss of kidney 45-59 function CKD 3b Moderate to severe loss of 30-44 of kindey function CKD 4 Severe loss of kidney function 15-29 CKD 5 Kidney failure <15 Note: (go live 2024) the eGFR calculation was updated to the 2020 CKD-EPI creatinine equation without a race factor to calculate the eGFR results. Globulin 3.4 G/dL Normal 2.5 - 4.2 G/dL ADM SS Glucose [Mass/Vol] 133 mg/dL High 70 - 110 mg/dL ADM SS Hematocrit (Bld) [Volume fraction] 31.1 % Low 34.0 - 46.0 % Workflow SS Hemoglobin (Bld) [Mass/Vol] 10.9 G/dL Low 12.0 - 16.0 G/dL Workflow SS Lymphocytes (Bld) [#/Vol] 1.1 103/mcL Normal 0.9 - 4.3 10^3/mcL Workflow SS Lymphocytes/100 WBC (Bld) 15.6 % Low 20.0 - 40.0 % Workflow SS MCH (RBC) [Entitic mass] 36.5 pg High 27.0 - 33.0 pg Workflow SS MCHC 35.1 G/dL Normal 32.0 - 36.0 G/dL Workflow SS MCV (RBC) [Entitic vol] 104.1 fL High 80.0 - 99.0 fL Workflow SS Monocytes (Bld) [#/Vol] 0.6 103/mcL Normal 0.1 - 1.4 10^3/mcL Workflow SS Monocytes/100 WBC (Bld) 8.0 % Normal 2.0 - 13.0 % Workflow SS Neutrophils (Bld) [#/Vol] 5.1 103/mcL Normal 2.3 - 8.1 10^3/mcL Workflow SS Neutrophils/100 WBC (Bld) 74.2 % Normal 50.0 - 75.0 % Workflow SS Platelet mean volume (Bld) [Entitic vol] 10.5 fL Normal 6.6 - 10.5 fL Workflow SS Platelets (Bld) [#/Vol] 71 103/mcL Low 150 - 450 10^3/mcL Workflow SS Potassium [Moles/Vol] 4.0 mmol/L Normal 3.5 - 5.0 mEq/L ADM SS Protein [Mass/Vol] 6.2 G/dL Normal 5.7 - 8.2 G/dL ADM SS PT Coag (PPP) [Time] 18.8 s High 9.0 - 1 4.4 seconds [employer] SS Comment on above: Interpretive Data: E ffective 01/10/08, Protime results may be affected by some antibiotics (i.e. Ciprofloxacin, Azithromycin, Bactrim) which may potentiate the action of oral anticoagulants, with further increases in Protime/INR. PT International Ratio 1.6 ratio Invalid Interpretation Code [facility] SS Comment on above: Interpretive Data: Finesse davis [employer] [place] [employer] (CHEST, 1991, 102:312S-25S) recommended therapeutic range for oral anticoagulant therapy is: LOW RISK: Prophylaxis of venous thrombosis INR: 2.0-3.0 Treatment of pulmonary embolism 2.0-3.0 Prevention of systemic embolism 2.0-3.0 HIGH RISK: Mechanical prosthetic valves 2.5-3.5 RBC (Bld) [#/Vol] 2.98 106/mcL Low 4.10 - 5.30 10^6/mcL Workflow SS Sodium [Moles/Vol] 140 mmol/L Normal 136 - 145 mEq/L ADM SS Urea nitrogen [Mass/Vol] 11.0 mg/dL Normal 8.0 - 22.0 mg/dL ADM SS Urea nitrogen/Creatinine [Mass ratio] 15.3 ratio Normal 10.0 - 22.0 ratio AH ADM SS WBC (Bld) [#/Vol] 6.9 103/mcL Normal 4.5 - 10.8 10^3/mcL Workflow SS PROon 01-28-2025 INR Coag (PPP) [Relative time] 1.6 {INR} Normal [facility] Comment on above: Result Comment: [employer] [place] [employer] (CHEST, 1991, 102:312S-25S) recommended therapeutic range for oral anticoagulant therapy is: LOW RISK: Prophylaxis of venous thrombosis INR: 2.0-3.0 Treatment of pulmonary embolism 2.0-3.0 Prevention of systemic embolism 2.0-3.0 HIGH RISK: Mechanical prosthetic valves 2.5-3.5 Performed By: #### P RO, GFR, CMP, ADIFF, ANEU, CBC #### [address] [address] PT Coag (PPP) [Time] 18.8 s High 9.0-14.4 [facility] Comment on above: Result Comment: Effe ctive 01/10/08, Protime results may be affected by some antibiotics (i.e. Ciprofloxacin, Azithromycin, Bactrim) which may potentiate the action of oral anticoagulants, with further increases in Protime/INR. Performed By: #### P RO, GFR, CMP, ADIFF, ANEU, CBC #### [address] [address] .Auto Diffon 01-27-2025 Basophil, Absolute 0.0 10 3/mcL Normal 0.0-0.3 [facility] Comment on above: Performed By: #### A MEAGAN HARRIS #### [address] [address] Basophils/100 WBC (Bld) 0.2 % Normal 0.0-2.5 [facility] Comment on above: Performed By: #### A MEAGAN HARRIS #### [address] [address] Eosinophil, Absolute 0.0 10 3/mcL Normal 0.0-0.7 [facility] Comment on above: Performed By: #### A MEAGAN HARRIS #### [address] [address] Eosinophils/100 WBC (Bld) 0.2 % Normal 0.0-6.0 [facility] Comment on above: Performed By: #### A MEAGAN HARRIS #### [address] [address] Lymphocyte, Absolute 0.4 10 3/mcL Low 0.9-4.3 [facility] Comment on above: Performed By: #### A MEAGAN HARRIS #### [address] [address] Lymphocytes/100 WBC (Bld) 8.9 % Low 20.0-40.0 [facility] Comment on above: Performed By: #### A MEAGAN HARRIS #### [address] [address] Monocyte, Absolute 0.3 10 3/mcL Normal 0.1-1.4 [facility] Comment on above: Performed By: #### A MEAGAN HARRIS #### [address] [address] Monocytes/100 WBC (Bld) 6.4 % Normal 2.0-13.0 [facility] Comment on above: Performed By: #### A MEAGAN HARRIS #### [address] [address] Neutrophils/100 WBC (Bld) 84.3 % High 50.0-75.0 [facility] Comment on above: Performed By: #### A MEAGAN HARRIS #### [address] [address] .GFRon 01-27-2025 Estimated Glomerular Filtration Rate 86 ml/min/1.73sqm Normal [facility] Comment on above: Result Comment: Stages of Chronic Kidney Disease (CKD) Stage Description eGFR(ml/min/1.73 sq.m.) CKD 1 Normal kidney function or >=90 normal kindney function with possible kidney damage (ex. Proteinuria) CKD 2 Kidney damage with mild loss 60-89 of kidney function CKD 3a Mild to moderate loss of kidney 45-59 function CKD 3b Moderate to severe loss of 30-44 of kindey function CKD 4 Severe loss of kidney function 15-29 CKD 5 Kidney failure <15 Note: (go live 2024) the eGFR calculation was updated to the 2020 CKD-EPI creatinine equation without a race factor to calculate the eGFR results. Performed By: #### MEAGAN PUENTES #### [place] [address] .Morphon 01-27-2025 Anisocytosis Ql (Bld) 1+ Normal [facility] Comment on above: Performed By: #### MEAGAN PUENTES #### [place] [address] Macrocytosis 1+ Normal [facility] Comment on above: Performed By: #### A MEAGAN HARRIS #### [place] [address] Platelet Estimate Grt Decreased Normal [facility] Comment on above: Performed By: #### MEAGAN PUENTES #### [address] [address] .NEUABSon 01-27-2025 Neutrophil, Absolute 4.0 10 3/mcL Normal 2.3-8.1 [facility] Comment on above: Performed By: #### A MEAGAN HARRIS #### [address] [address] CBCon 01-27-2025 Erythrocyte distribution width (RBC) [Ratio] 14.6 % Normal 11.5-15.5 [facility] Comment on above: Performed By: #### A MEAGAN HARRIS #### [place] [address] Hematocrit (Bld) [Volume fraction] 30.6 % Low 34.0-46.0 [facility] Comment on above: Performed By: #### A MEAGAN HARRIS #### [place] [address] Hgb 10.8 G/dL Low 12.0-16.0 [facility] Comment on above: Performed By: #### A MEAGAN HARRIS #### [place] [address] MCH (RBC) [Entitic mass] 37.0 pg High 27.0-33.0 [facility] Comment on above: Performed By: #### A MEAGAN HARRIS #### [place] [address] MCHC 35.4 G/dL Normal 32.0-36.0 [facility] Comment on above: Performed By: #### A MEAGAN HARRIS #### [place] [address] MCV (RBC) [Entitic vol] 104.7 fL High 80.0-99.0 [facility] Comment on above: Performed By: #### A MEAGAN HARRIS #### [place] [address] Platelet 40 10 3/mcL Low 150-450 [facility] Comment on above: Performed By: #### MEAGAN PUENTES #### [place] [address] Platelet mean volume (Bld) [Entitic vol] 8.8 fL Normal 6.6-10.5 [facility] Comment on above: Performed By: #### MEAGAN PUENTES #### [address] [address] RBC 2.92 10 6/mcL Low 4.10-5.30 [facility] Comment on above: Performed By: #### A MEAGAN HARRIS #### [place] [address] WBC 4.7 10 3/mcL Normal 4.5-10.8 [facility] Comment on above: Performed By: #### A MEAGAN HARRIS #### [place] [address] CMPon 01-27-2025 Albumin Level 2.7 G/dL Low 3.2-4.8 [facility] Comment on above: Performed By: #### A MEAGAN HARRIS #### [place] [address] Albumin/Globulin [Mass ratio] 0.8 {ratio} Low 0.9-1.6 [facility] Comment on above: Performed By: #### A MEAGAN HARRIS #### [address] [address] ALP [Catalytic activity/Vol] 172 U/L High 38-126 [facility] Comment on above: Performed By: #### A MEAGAN HARRIS #### [place] [id number] ALT [Catalytic activity/Vol] 37 U/L Normal 10-49 [facility] Comment on above: Performed By: #### A MEAGAN HARRIS #### [place] [address] AST [Catalytic activity/Vol] 69 U/L High 8-34 [facility] Comment on above: Performed By: #### MEAGAN PUENTES #### [place] [address] Bili Total 2.80 mg/dL High 0.20-1.20 [facility] Comment on above: Result Comment: Use of this assay is not recommended for patients undergoing treatment with eltrombopag due to the potential for falsely elevated results. Performed By: #### MEAGAN PUENTES #### [address] [address] BUN/Creatinine Ratio 17.7 ratio Normal 10.0-22.0 [facility] Comment on above: Performed By: #### A MEAGAN HARRIS #### [address] [address] Calcium [Mass/Vol] 8.2 mg/dL Low 8.7-10.4 [facility] Comment on above: Performed By: #### A MEAGAN HARRIS #### [address] [address] Chloride [Moles/Vol] 105 mmol/L Normal 98-110 [facility] Comment on above: Performed By: #### A MEAGAN HARRIS #### [address] [address] CO2 [Moles/Vol] 22 mmol/L Normal 22-32 [facility] Comment on above: Performed By: #### A MEAGAN HARRIS #### [address] [address] Creatinine [Mass/Vol] 0.79 mg/dL Normal 0.50-1.20 [facility] Comment on above: Result Comment: Test ing performed on ArticleAlley analyzer using enzymatic creatinine methodology. Performed By: #### A MEAGAN HARRIS #### [address] [address] Electrolyte Balance 9.0 mEq/L Normal 4.0-15.0 [facility] Comment on above: Performed By: #### A MEAGAN HARRIS #### [address] [address] Globulin 3.6 G/dL Normal 2.5-4.2 [facility] Comment on above: Performed By: #### MEAGAN PUENTES #### [address] [address] Glucose [Mass/Vol] 278 mg/dL High 70-110 [facility] Comment on above: Performed By: #### MEAGAN PUENTES #### [address] [address] Potassium [Moles/Vol] 4.4 mmol/L Normal 3.5-5.0 [facility] Comment on above: Performed By: #### A MEAGAN HARRIS #### [place] [address] Sodium [Moles/Vol] 136 mmol/L Normal 136-145 [facility] Comment on above: Performed By: #### A MEAGAN HARRIS #### [place] [address] Total Protein 6.3 G/dL Normal 5.7-8.2 [facility] Comment on above: Performed By: #### A MEAGAN HARRIS #### [place] [address] Urea nitrogen [Mass/Vol] 14.0 mg/dL Normal 8.0-22.0 [facility] Comment on above: Performed By: #### A MEAGAN HARRIS #### [place] [address] HHon 01-27-2025 Hematocrit (Bld) [Volume fraction] 32.4 % Low 34.0-46.0 [facility] Comment on above: Performed By: #### H H ####[place] [address] Hgb 11.3 G/dL Low 12.0-16.0 [facility] Comment on above: Performed By: #### H H ####[place] [address] Hematocrit (Bld) [Volume fraction] 29.8 % Low 34.0-46.0 [facility] Comment on above: Performed By: #### A MEAGAN HARRIS #### [place] [address] Hgb 10.4 G/dL Low 12.0-16.0 [facility] Comment on above: Performed By: #### MEAGAN PUENTES #### [place] [id number] LABORATORYOrdered By: SYSTEM SYSTEM on 01-27-2025 Hematocrit (Bld) [Volume fraction] 29.1 % Low 34.0 - 46.0 % Workflow SS Hemoglobin (Bld) [Mass/Vol] 10.3 G/dL Low 12.0 - 16.0 G/dL Workflow SS Albumin BCP dye [Mass/Vol] 2.7 G/dL Low 3.2 - 4.8 G/dL ADM SS Albumin/Globulin [Mass ratio] 0.8 {ratio} Low 0.9 - 1.6 ratio ADM SS ALP [Catalytic activity/Vol] 172 U/L High 38 - 126 U/L ADM SS ALT No additional P-5'-P [Catalytic activity/Vol] 37 U/L Normal 10 - 49 U/L ADM SS Anisocytosis Ql (Bld) 1+ *NA* (01/27/25 6:39 AM) Invalid Interpretation Code Workflow SS AST [Catalytic activity/Vol] 69 U/L High 8 - 34 U/L ADM SS Basophils (Bld) [#/Vol] 0.0 103/mcL Normal 0.0 - 0.3 10^3/mcL Workflow SS Basophils/100 WBC (Bld) 0.2 % Normal 0.0 - 2.5 % Workflow SS Bilirubin [Mass/Vol] 2.80 mg/dL High 0.20 - 1.20 mg/dL ADM SS Comment on above: Interpretive Data: U se of this assay is not recommended for patients undergoing treatment with eltrombopag due to the potential for falsely elevated results. Calcium [Mass/Vol] 8.2 mg/dL Low 8.7 - 10. 4 mg/dL ADM SS Chloride [Moles/Vol] 105 mmol/L Normal 98 - 11 0 mEq/L ADM SS CO2 [Moles/Vol] 22 mmol/L Normal 22 - 32 mEq/L ADM SS Creatinine [Mass/Vol] 0.79 mg/dL Normal 0.50 - 1.20 mg/dL ADM SS Comment on above: Interpretive Data: T esting performed on [employer] analyzer using enzymatic creatinine methodology. Electrolyte Balance 9.0 mEq/L Normal 4.0 - 15 .0 mEq/L ADM SS Eosinophils (Bld) [#/Vol] 0.0 103/mcL Normal 0.0 - 0.7 10^3/mcL Workflow SS Eosinophils/100 WBC (Bld) 0.2 % Normal 0.0 - 6.0 % AH Workflow SS Erythrocyte distribution width (RBC) [Ratio] 14.6 % Normal 11.5 - 15.5 % AH Workflow SS Estimated Glomerular Filtration Rate 86 ml/min/1.73sqm Invalid Interpretation Code Chemistry S Comment on above: Interpretive Data: Stages of Chronic Kidney Disease (CKD) Stage Description eGFR(ml/min/1.73 sq.m.) CKD 1 Normal kidney function or >=90 normal kindney function with possible kidney damage (ex. Proteinuria) CKD 2 Kidney damage with mild loss 60-89 of kidney function CKD 3a Mild to moderate loss of kidney 45-59 function CKD 3b Moderate to severe loss of 30-44 of kindey function CKD 4 Severe loss of kidney function 15-29 CKD 5 Kidney failure <15 Note: (go live 2024) the eGFR calculation was updated to the 2020 CKD-EPI creatinine equation without a race factor to calculate the eGFR results. Globulin 3.6 G/dL Normal 2.5 - 4.2 G/dL ADM SS Glucose [Mass/Vol] 278 mg/dL High 70 - 110 mg/dL ADM SS Lymphocytes (Bld) [#/Vol] 0.4 103/mcL Low 0.9 - 4.3 10^3/mcL Workflow SS Lymphocytes/100 WBC (Bld) 8.9 % Low 20.0 - 40.0 % Workflow SS Macrocytes Ql (Bld) 1+ *NA* (01/27/25 6:39 AM) Invalid Interpretation Code Workflow SS MCH (RBC) [Entitic mass] 37.0 pg High 27.0 - 33.0 pg Workflow SS MCHC 35.4 G/dL Normal 32.0 - 36.0 G/dL Workflow SS MCV (RBC) [Entitic vol] 104.7 fL High 80.0 - 99.0 fL Workflow SS Monocytes (Bld) [#/Vol] 0.3 103/mcL Normal 0.1 - 1.4 10^3/mcL Workflow SS Monocytes/100 WBC (Bld) 6.4 % Normal 2.0 - 13.0 % Workflow SS Neutrophils (Bld) [#/Vol] 4.0 103/mcL Normal 2.3 - 8.1 10^3/mcL Workflow SS Neutrophils/100 WBC (Bld) 84.3 % High 50.0 - 75.0 % Workflow SS Platelet mean volume (Bld) [Entitic vol] 8.8 fL Normal 6.6 - 10.5 fL Workflow SS Platelets (Bld) [#/Vol] 40 103/mcL Low 150 - 450 10^3/mcL Workflow SS Platelets LM Ql (Bld) Grt Decreased *NA* (01/27/25 6:39 AM) Invalid Interpretation Code Workflow SS Potassium [Moles/Vol] 4.4 mmol/L Normal 3.5 - 5.0 mEq/L ADM SS Protein [Mass/Vol] 6.3 G/dL Normal 5.7 - 8.2 G/dL ADM SS PT Coag (PPP) [Time] 20.0 s High 9.0 - 1 4.4 seconds [facility] Comment on above: Interpretive Data: E ffective 01/10/08, Protime results may be affected by some antibiotics (i.e. Ciprofloxacin, Azithromycin, Bactrim) which may potentiate the action of oral anticoagulants, with further increases in Protime/INR. PT International Ratio 1.7 ratio Invalid Interpretation Code [facility] Comment on above: Interpretive Data: Finesse davis [employer] [place] [employer] (CHEST, 1992, 102:312S-25S) recommended therapeutic range for oral anticoagulant therapy is: LOW RISK: Prophylaxis of venous thrombosis INR: 2.0-3.0 Treatment of pulmonary embolism 2.0-3.0 Prevention of systemic embolism 2.0-3.0 HIGH RISK: Mechanical prosthetic valves 2.5-3.5 RBC (Bld) [#/Vol] 2.92 106/mcL Low 4.10 - 5.30 10^6/mcL Workflow SS Sodium [Moles/Vol] 136 mmol/L Normal 136 - 145 mEq/L ADM SS Urea nitrogen [Mass/Vol] 14.0 mg/dL Normal 8.0 - 22.0 mg/dL ADM SS Urea nitrogen/Creatinine [Mass ratio] 17.7 ratio Normal 10.0 - 22.0 ratio ADM SS WBC (Bld) [#/Vol] 4.7 103/mcL Normal 4.5 - 10.8 10^3/mcL Workflow SS LABORATORYOrdered By: Wally Marks on 01-27-2025 Platelet Product Ready Platelet Ready for Pickup (01/27/25 11:36 AM) Normal AH BB Manual SS PROon 01-27-2025 INR Coag (PPP) [Relative time] 1.7 {INR} Normal [facility] Comment on above: Result Comment: [employer] [place] [employer] (CHEST, 1992, 102:312S-25S) recommended therapeutic range for oral anticoagulant therapy is: LOW RISK: Prophylaxis of venous thrombosis INR: 2.0-3.0 Treatment of pulmonary embolism 2.0-3.0 Prevention of systemic embolism 2.0-3.0 HIGH RISK: Mechanical prosthetic valves 2.5-3.5 Performed By: #### P RO ####[place] [id number] [place] [address] PT Coag (PPP) [Time] 20.0 s High 9.0-14.4 [facility] Comment on above: Result Comment: Effe ctive 01/10/08, Protime results may be affected by some antibiotics (i.e. Ciprofloxacin, Azithromycin, Bactrim) which may potentiate the action of oral anticoagulants, with further increases in Protime/INR. Performed By: #### P RO ####[address] [address] Platelet (Product)on 025 Platelet Product Ready Platelet Ready for Pickup Normal [facility] Comment on above: Performed By: #### P LTP #### [address] [address] .Auto Diffon 01-26-2025 Basophil, Absolute 0.0 10 3/mcL Normal 0.0-0.3 [facility] Comment on above: Performed By: #### A MEAGAN HARRIS #### [address] [address] Basophils/100 WBC (Bld) 0.4 % Normal 0.0-2.5 [facility] Comment on above: Performed By: #### A MEAGAN HARRIS #### [address] [address] Eosinophil, Absolute 0.5 10 3/mcL Normal 0.0-0.7 [facility] Comment on above: Performed By: #### A MEAGAN HARRIS #### [address] [address] Eosinophils/100 WBC (Bld) 7.0 % High 0.0-6.0 [facility] Comment on above: Performed By: #### A MEAGAN HARRIS #### [address] [address] Lymphocyte, Absolute 1.1 10 3/mcL Normal 0.9-4.3 [facility] Comment on above: Performed By: #### A MEAGAN HARRIS #### [address] [address] Lymphocytes/100 WBC (Bld) 14.7 % Low 20.0-40.0 [facility] Comment on above: Performed By: #### A MEAGAN HARRIS #### [address] [address] Monocyte, Absolute 0.2 10 3/mcL Normal 0.1-1.4 [facility] Comment on above: Performed By: #### A MEAGAN HARRIS #### [address] [address] Monocytes/100 WBC (Bld) 2.4 % Normal 2.0-13.0 [facility] Comment on above: Performed By: #### A MEAGAN HARRIS #### [address] [address] Neutrophils/100 WBC (Bld) 75.5 % High 50.0-75.0 [facility] Comment on above: Performed By: #### A MEAGAN HARRIS #### [address] [address] Basophil, Absolute 0.0 10 3/mcL Normal 0.0-0.3 [facility] Comment on above: Performed By: #### C BC, ANEU, ADIFF ####[address] [address] Basophils/100 WBC (Bld) 0.8 % Normal 0.0-2.5 [facility] Comment on above: Performed By: #### C BC, ANEU, ADIFF ####[address] [address] Eosinophil, Absolute 0.2 10 3/mcL Normal 0.0-0.7 [facility] Comment on above: Performed By: #### C BC, ANEU, ADIFF ####[address] [address] Eosinophils/100 WBC (Bld) 6.9 % High 0.0-6.0 [facility] Comment on above: Performed By: #### C BC, ANEU, ADIFF ####[address] [address] Lymphocyte, Absolute 0.7 10 3/mcL Low 0.9-4.3 [facility] Comment on above: Performed By: #### C BC, ANEU, ADIFF ####[address] [address] Lymphocytes/100 WBC (Bld) 22.9 % Normal 20.0-40.0 [facility] Comment on above: Performed By: #### C BC, ANEU, ADIFF ####[address] [address] Monocyte, Absolute 0.3 10 3/mcL Normal 0.1-1.4 [facility] Comment on above: Performed By: #### C BC, ANEU, ADIFF ####[address] [address] Monocytes/100 WBC (Bld) 8.0 % Normal 2.0-13.0 [facility] Comment on above: Performed By: #### C BC, ANEU, ADIFF ####[address] [address] Neutrophils/100 WBC (Bld) 61.4 % Normal 50.0-75.0 [facility] Comment on above: Performed By: #### C BC, ANEU, ADIFF ####[address] [address] .NEUABSon 01-26-2025 Neutrophil, Absolute 5.4 10 3/mcL Normal 2.3-8.1 [facility] Comment on above: Performed By: #### A MEAGAN HARRIS #### [address] [address] Neutrophil, Absolute 2.0 10 3/mcL Low 2.3-8.1 [facility] Comment on above: Performed By: #### C BC, ANEU, ADIFF ####[place] [id number] ABO/Rh (Gel)on 01-26-2025 ABO/Rh Interp Negative Invalid Interpretation Code [facility] Comment on above: Performed By: #### A MEAGAN HARRIS #### [place] [id number] ABS (Gel)on 01-26-2025 ABSC Interp (Gel) Negative Normal [facility] Comment on above: Performed By: #### A MEAGAN HARRIS #### [place] [id number] CBCon 01-26-2025 Erythrocyte distribution width (RBC) [Ratio] 14.7 % Normal 11.5-15.5 [facility] Comment on above: Performed By: #### A MEAGAN HARRIS #### [place] [id number] Hematocrit (Bld) [Volume fraction] 36.0 % Normal 34.0-46.0 [facility] Comment on above: Performed By: #### A MEAGAN HARRIS #### [place] [address] Hgb 12.5 G/dL Normal 12.0-16.0 [facility] Comment on above: Performed By: #### A MEAGAN HARRIS #### [place] [id number] MCH (RBC) [Entitic mass] 36.7 pg High 27.0-33.0 [facility] Comment on above: Performed By: #### A MEAGAN HARRIS #### [place] [id number] MCHC 34.9 G/dL Normal 32.0-36.0 [facility] Comment on above: Performed By: #### A MEAGAN HARRIS #### [place] [id number] MCV (RBC) [Entitic vol] 105.1 fL High 80.0-99.0 [facility] Comment on above: Performed By: #### A MEAGAN HARRIS #### [address] [address] Platelet 75 10 3/mcL Low 150-450 [facility] Comment on above: Performed By: #### A MEAGAN HARRIS #### [address] [address] Platelet mean volume (Bld) [Entitic vol] 8.4 fL Normal 6.6-10.5 [facility] Comment on above: Performed By: #### A MEAGAN HARRIS #### [place] [address] RBC 3.42 10 6/mcL Low 4.10-5.30 [facility] Comment on above: Performed By: #### A MEAGAN HARRIS #### [place] [address] WBC 7.2 10 3/mcL Normal 4.5-10.8 [facility] Comment on above: Performed By: #### A MEAGAN HARRIS #### [place] [address] Erythrocyte distribution width (RBC) [Ratio] 14.8 % Normal 11.5-15.5 [facility] Comment on above: Performed By: #### C BRIANNA ANEU, ADIFF ####[place] [address] Hematocrit (Bld) [Volume fraction] 36.7 % Normal 34.0-46.0 [facility] Comment on above: Performed By: #### C BRIANNA ANEU, ADIFF ####[place] [address] Hgb 12.9 G/dL Normal 12.0-16.0 [facility] Comment on above: Performed By: #### C BRIANNA ANEU, ADIFF ####[address] [address] MCH (RBC) [Entitic mass] 36.9 pg High 27.0-33.0 [facility] Comment on above: Performed By: #### C BRIANNA ANEU, ADIFF ####[address] [address] MCHC 35.0 G/dL Normal 32.0-36.0 [facility] Comment on above: Performed By: #### C BRIANNA ANEU, ADIFF ####[place] [id number] [place] [address] MCV (RBC) [Entitic vol] 105.3 fL High 80.0-99.0 [facility] Comment on above: Performed By: #### C BRIANNA ANEU, ADIFF ####[place] [address] Platelet 52 10 3/mcL Low 150-450 [facility] Comment on above: Performed By: #### C GEORGE REED, ADIFF ####[place] [address] Platelet mean volume (Bld) [Entitic vol] 9.3 fL Normal 6.6-10.5 [facility] Comment on above: Performed By: #### C BRIANNA ANEU, ADIFF ####[place] [address] RBC 3.48 10 6/mcL Low 4.10-5.30 [facility] Comment on above: Performed By: #### C BRIANNA ANEU, ADIFF ####[place] [address] WBC 3.3 10 3/mcL Low 4.5-10.8 [facility] Comment on above: Performed By: #### C GEORGE REED, ADIFF ####[place] [address] HHon 01-26-2025 Hematocrit (Bld) [Volume fraction] 31.9 % Low 34.0-46.0 [facility] Comment on above: Performed By: #### A MEAGAN HARRIS #### [place] [address] Hgb 10.9 G/dL Low 12.0-16.0 [facility] Comment on above: Performed By: #### A MEAGAN HARRIS #### [place] [address] Hematocrit (Bld) [Volume fraction] 32.2 % Low 34.0-46.0 [facility] Comment on above: Performed By: #### H H ####[facility] [place] [address] Hgb 11.3 G/dL Low 12.0-16.0 [facility] Comment on above: Performed By: #### H H ####[place] [id number] [place] [address] LABORATORYOrdered By: SYSTEM SYSTEM on 01-26-2025 Basophils (Bld) [#/Vol] 0.0 103/mcL Normal 0.0 - 0.3 10^3/mcL AH Workflow SS Basophils/100 WBC (Bld) 0.4 % Normal 0.0 - 2.5 % AH Workflow SS Eosinophils (Bld) [#/Vol] 0.5 103/mcL Normal 0.0 - 0.7 10^3/mcL AH Workflow SS Eosinophils/100 WBC (Bld) 7.0 % High 0.0 - 6.0 % AH Workflow SS Erythrocyte distribution width (RBC) [Ratio] 14.7 % Normal 11.5 - 15.5 % AH Workflow SS Lymphocytes (Bld) [#/Vol] 1.1 103/mcL Normal 0.9 - 4.3 10^3/mcL AH Workflow SS Lymphocytes/100 WBC (Bld) 14.7 % Low 20.0 - 40.0 % AH Workflow SS MCH (RBC) [Entitic mass] 36.7 pg High 27.0 - 33.0 pg AH Workflow SS MCHC 34.9 G/dL Normal 32.0 - 36.0 G/dL AH Workflow SS MCV (RBC) [Entitic vol] 105.1 fL High 80.0 - 99.0 fL AH Workflow SS Monocytes (Bld) [#/Vol] 0.2 103/mcL Normal 0.1 - 1.4 10^3/mcL AH Workflow SS Monocytes/100 WBC (Bld) 2.4 % Normal 2.0 - 13.0 % AH Workflow SS Neutrophils (Bld) [#/Vol] 5.4 103/mcL Normal 2.3 - 8.1 10^3/mcL AH Workflow SS Neutrophils/100 WBC (Bld) 75.5 % High 50.0 - 75.0 % AH Workflow SS Platelet mean volume (Bld) [Entitic vol] 8.4 fL Normal 6.6 - 10.5 fL Workflow SS Platelets (Bld) [#/Vol] 75 103/mcL Low 150 - 450 10^3/mcL Workflow SS PT Coag (PPP) [Time] 16.5 s High 9.0 - 1 4.4 seconds [facility] Comment on above: Interpretive Data: E ffective 01/10/08, Protime results may be affected by some antibiotics (i.e. Ciprofloxacin, Azithromycin, Bactrim) which may potentiate the action of oral anticoagulants, with further increases in Protime/INR. PT International Ratio 1.4 ratio Invalid Interpretation Code [facility] Comment on above: Interpretive Data: Finesse davis [employer] [place] [employer] (CHEST, 1992, 102:312S-25S) recommended therapeutic range for oral anticoagulant therapy is: LOW RISK: Prophylaxis of venous thrombosis INR: 2.0-3.0 Treatment of pulmonary embolism 2.0-3.0 Prevention of systemic embolism 2.0-3.0 HIGH RISK: Mechanical prosthetic valves 2.5-3.5 RBC (Bld) [#/Vol] 3.42 106/mcL Low 4.10 - 5.30 10^6/mcL Workflow SS WBC (Bld) [#/Vol] 7.2 103/mcL Normal 4.5 - 10.8 10^3/mcL Workflow SS LABORATORYOrdered By: Mercedes Albright on 01-26-2025 Clot angle TEG (Bld) [Angle] 61.8 degrees Normal 53.0 - 72.0 degrees TEG Subsection Clot formation TEG (Bld) [Time] 2.5 minute(s) Normal 1.0 - 3.0 minute(s) TEG Subsection Clot lysis estimate TEG (Bld) [%] N/A Invalid Interpretation Code 0.0 - 8.0 TEG Subsection Clot strength TEG (Bld) [Energy/Area] 50.0 mm Normal 50.0 - 70.0 mm TEG Subsection Clotting time TEG (Bld) 4.7 minute(s) Low 5.0 - 10.0 minute(s) TEG Subsection LABORATORYOrdered By: George Martin on 01-26-2025 Glucose [Mass/Vol] 141 mg/dL High 70 - 110 mg/dL [facility] LABORATORYOrdered By: Pat Vincent on 01-26-2025 ABO and Rh group Nom (Bld) Blood group O Rh(D) negative Invalid Interpretation Code AH BB Auto SS Blood group antibody screen Ql Negative ABSC (01/26/25 8:00 AM) Normal AH BB Auto SS Platelet Product Ready Platelet Ready for Pickup (01/26/25 5:00 AM) Normal AH BB Manual SS RBC Product Ready RBC Ready for Pickup (01/26/25 5:00 AM) Normal AH BB Manual SS PROon 01-26-2025 INR Coag (PPP) [Relative time] 1.4 {INR} Normal [facility] Comment on above: Result Comment: [employer] [place] [employer] (CHEST, 1992, 102:312S-25S) recommended therapeutic range for oral anticoagulant therapy is: LOW RISK: Prophylaxis of venous thrombosis INR: 2.0-3.0 Treatment of pulmonary embolism 2.0-3.0 Prevention of systemic embolism 2.0-3.0 HIGH RISK: Mechanical prosthetic valves 2.5-3.5 Performed By: #### A MEAGAN HARRIS #### [address] [address] PT Coag (PPP) [Time] 16.5 s High 9.0-14.4 [facility] Comment on above: Result Comment: Effe ctive 01/10/08, Protime results may be affected by some antibiotics (i.e. Ciprofloxacin, Azithromycin, Bactrim) which may potentiate the action of oral anticoagulants, with further increases in Protime/INR. Performed By: #### A MEAGAN HARRIS #### [facility] [address] [place] [address] Platelet (Product)on 025 Platelet Product Ready Platelet Ready for Pickup Normal [facility] Comment on above: Performed By: #### P LTP, RBCP #### [facility] [address] [place] [address] RBC (Product)on 01-26-2025 RBC Product Ready RBC Ready for Pickup Normal [facility] Comment on above: Performed By: #### P LTP, RBCP #### [place] [id number] [place] [address] TEGCKon 01-26-2025 Angle TEG 61.8 degrees Normal 53.0-72.0 [facility] Comment on above: Performed By: #### T EGCK ####[place] [address] K TEG 2.5 minutes Normal 1.0-3.0 [facility] Comment on above: Performed By: #### T EGCK ####[place] [address] LY30 Lysis TEG N/A Normal 0.0-8.0 [facility] Comment on above: Performed By: #### T EGPRIYA ####[place] [address] MA Max Clot TEG 50.0 mm Normal 50.0-70.0 [facility] Comment on above: Performed By: #### T EGPRIYA ####[place] [address] R TEG 4.7 minutes Low 5.0-10.0 [facility] Comment on above: Performed By: #### T EGCK ####[place] [address] .Auto Diffon 01-19-2025 Basophil, Absolute 0.0 10 3/mcL Normal 0.0-0.3 [facility] Comment on above: Performed By: #### C BC, ADIFF, GFR, PRO, CMP, ANEU #### [address] [address] Basophils/100 WBC (Bld) 0.2 % Normal 0.0-2.5 [facility] Comment on above: Performed By: #### C BC, ADIFF, GFR, PRO, CMP, ANEU #### [address] [address] Eosinophil, Absolute 0.2 10 3/mcL Normal 0.0-0.7 [facility] Comment on above: Performed By: #### C BC, ADIFF, GFR, PRO, CMP, ANEU #### [address] [address] Eosinophils/100 WBC (Bld) 6.3 % High 0.0-6.0 [facility] Comment on above: Performed By: #### C BC, ADIFF, GFR, PRO, CMP, ANEU #### [address] [address] Lymphocyte, Absolute 1.1 10 3/mcL Normal 0.9-4.3 [facility] Comment on above: Performed By: #### C BC, ADIFF, GFR, PRO, CMP, ANEU #### [address] [address] Lymphocytes/100 WBC (Bld) 30.5 % Normal 20.0-40.0 [facility] Comment on above: Performed By: #### C BC, ADIFF, GFR, PRO, CMP, ANEU #### [address] [address] Monocyte, Absolute 0.4 10 3/mcL Normal 0.1-1.4 [facility] Comment on above: Performed By: #### C BC, ADIFF, GFR, PRO, CMP, ANEU #### [address] [address] Monocytes/100 WBC (Bld) 11.4 % Normal 2.0-13.0 [facility] Comment on above: Performed By: #### C BC, ADIFF, GFR, PRO, CMP, ANEU #### [address] [address] Neutrophils/100 WBC (Bld) 51.6 % Normal 50.0-75.0 [facility] Comment on above: Performed By: #### C BC, ADIFF, GFR, PRO, CMP, ANEU #### [address] [address] .GFRon 01-19-2025 Estimated Glomerular Filtration Rate 85 ml/min/1.73sqm Normal [facility] Comment on above: Result Comment: Stages of Chronic Kidney Disease (CKD) Stage Description eGFR(ml/min/1.73 sq.m.) CKD 1 Normal kidney function or >=90 normal kindney function with possible kidney damage (ex. Proteinuria) CKD 2 Kidney damage with mild loss 60-89 of kidney function CKD 3a Mild to moderate loss of kidney 45-59 function CKD 3b Moderate to severe loss of 30-44 of kindey function CKD 4 Severe loss of kidney function 15-29 CKD 5 Kidney failure <15 Note: (go live 2024) the eGFR calculation was updated to the 2020 CKD-EPI creatinine equation without a race factor to calculate the eGFR results. Performed By: #### C BC, ADIFF, GFR, PRO, CMP, ANEU #### [place] [id number] .NEUABSon 01-19-2025 Neutrophil, Absolute 1.9 10 3/mcL Low 2.3-8.1 [facility] Comment on above: Performed By: #### C BC, ADIFF, GFR, PRO, CMP, ANEU #### [place] [address] CBCon 01-19-2025 Erythrocyte distribution width (RBC) [Ratio] 14.7 % Normal 11.5-15.5 [facility] Comment on above: Performed By: #### C BC, ADIFF, GFR, PRO, CMP, ANEU #### [place] [address] Hematocrit (Bld) [Volume fraction] 37.2 % Normal 34.0-46.0 [facility] Comment on above: Performed By: #### C BC, ADIFF, GFR, PRO, CMP, ANEU #### [place] [address] Hgb 12.7 G/dL Normal 12.0-16.0 [facility] Comment on above: Performed By: #### C BC, ADIFF, GFR, PRO, CMP, ANEU #### [place] [address] MCH (RBC) [Entitic mass] 35.8 pg High 27.0-33.0 [facility] Comment on above: Performed By: #### C BC, ADIFF, GFR, PRO, CMP, ANEU #### [address] [address] MCHC 34.2 G/dL Normal 32.0-36.0 [facility] Comment on above: Performed By: #### C BC, ADIFF, GFR, PRO, CMP, ANEU #### [address] [address] MCV (RBC) [Entitic vol] 104.8 fL High 80.0-99.0 [facility] Comment on above: Performed By: #### C BC, ADIFF, GFR, PRO, CMP, ANEU #### [address] [address] Platelet 50 10 3/mcL Low 150-450 [facility] Comment on above: Performed By: #### C BC, ADIFF, GFR, PRO, CMP, ANEU #### [address] [address] Platelet mean volume (Bld) [Entitic vol] 9.3 fL Normal 6.6-10.5 [facility] Comment on above: Performed By: #### C BC, ADIFF, GFR, PRO, CMP, ANEU #### [address] [address] RBC 3.55 10 6/mcL Low 4.10-5.30 [facility] Comment on above: Performed By: #### C BC, ADIFF, GFR, PRO, CMP, ANEU #### [address] [address] WBC 3.6 10 3/mcL Low 4.5-10.8 [facility] Comment on above: Performed By: #### C BC, ADIFF, GFR, PRO, CMP, ANEU #### [address] [address] CMPon 01-19-2025 Albumin Level 2.9 G/dL Low 3.5-5.0 [facility] Comment on above: Performed By: #### C BC, ADIFF, GFR, PRO, CMP, ANEU #### [address] [address] Albumin/Globulin [Mass ratio] 0.7 {ratio} Low 1.1-2.5 [facility] Comment on above: Performed By: #### C BC, ADIFF, GFR, PRO, CMP, ANEU #### [address] [address] ALP [Catalytic activity/Vol] 248 U/L High 40-135 [facility] Comment on above: Performed By: #### C BC, ADIFF, GFR, PRO, CMP, ANEU #### [address] [address] ALT [Catalytic activity/Vol] 30 U/L Normal 14-59 [facility] Comment on above: Performed By: #### C BC, ADIFF, GFR, PRO, CMP, ANEU #### [address] [address] AST [Catalytic activity/Vol] 57 U/L High 10-40 [facility] Comment on above: Performed By: #### C BC, ADIFF, GFR, PRO, CMP, ANEU #### [address] [address] Bili Total 2.7 mg/dL High 0.2-1.0 [facility] Comment on above: Result Comment: Use of this assay is not recommended for patients undergoing treatment with eltrombopag due to the potential for falsely elevated results. Performed By: #### C BC, ADIFF, GFR, PRO, CMP, ANEU #### [address] [address] BUN/Creatinine Ratio 10 ratio Normal 7-27 [facility] Comment on above: Performed By: #### C BC, ADIFF, GFR, PRO, CMP, ANEU #### [address] [address] Calcium [Mass/Vol] 8.8 mg/dL Normal 8.4-10.2 [facility] Comment on above: Performed By: #### C BC, ADIFF, GFR, PRO, CMP, ANEU #### [address] [address] Chloride [Moles/Vol] 107 mmol/L Normal 98-107 [facility] Comment on above: Performed By: #### C BC, ADIFF, GFR, PRO, CMP, ANEU #### [address] [address] CO2 [Moles/Vol] 25 mmol/L Normal 22-29 [facility] Comment on above: Performed By: #### C BC, ADIFF, GFR, PRO, CMP, ANEU #### [address] [address] [address] Creatinine [Mass/Vol] 0.80 mg/dL Normal 0.51-0.95 [facility] Comment on above: Performed By: #### C BC, ADIFF, GFR, PRO, CMP, ANEU #### [address] [address] Electrolyte Balance 8.0 mEq/L Normal 4.0-15.0 [facility] Comment on above: Performed By: #### C BC, ADIFF, GFR, PRO, CMP, ANEU #### [address] [address] Globulin 4.4 G/dL Normal 2.7-4.4 [facility] Comment on above: Performed By: #### C BC, ADIFF, GFR, PRO, CMP, ANEU #### [address] [address] Glucose [Mass/Vol] 138 mg/dL High 70-105 [facility] Comment on above: Performed By: #### C BC, ADIFF, GFR, PRO, CMP, ANEU #### [address] [address] Potassium [Moles/Vol] 3.6 mmol/L Normal 3.5-5.1 [facility] Comment on above: Performed By: #### C BC, ADIFF, GFR, PRO, CMP, ANEU #### [place] [address] Sodium [Moles/Vol] 140 mmol/L Normal 136-145 [facility] Comment on above: Performed By: #### C BC, ADIFF, GFR, PRO, CMP, ANEU #### [address] [id number] [place], [place] [address] Total Protein 7.3 G/dL Normal 6.4-8.2 [facility] Comment on above: Performed By: #### C BC, ADIFF, GFR, PRO, CMP, ANEU #### [address] [id number] [place], [place] [address] Urea nitrogen [Mass/Vol] 8 mg/dL Normal 7-18 [facility] Comment on above: Performed By: #### C BC, ADIFF, GFR, PRO, CMP, ANEU #### [address] [id number] [place], [place] [address] LABORATORYOrdered By: SYSTEM SYSTEM on 01-19-2025 Albumin BCP dye [Mass/Vol] 2.9 G/dL Low 3.5 - 5.0 G/dL AO ADM SS Albumin/Globulin [Mass ratio] 0.7 {ratio} Low 1.1 - 2.5 ratio AO ADM SS ALP [Catalytic activity/Vol] 248 U/L High 40 - 135 U/L AO ADM SS ALT With P-5'-P [Catalytic activity/Vol] 30 U/L Normal 14 - 59 U/L AO ADM SS AST With P-5'-P [Catalytic activity/Vol] 57 U/L High 10 - 40 U/L AO ADM SS Basophils (Bld) [#/Vol] 0.0 103/mcL Normal 0.0 - 0.3 10^3/mcL AO Workflow SS Basophils/100 WBC (Bld) 0.2 % Normal 0.0 - 2.5 % AO Workflow SS Bilirubin [Mass/Vol] 2.7 mg/dL High 0.2 - 1 .0 mg/dL AO ADM SS Comment on above: Interpretive Data: U se of this assay is not recommended for patients undergoing treatment with eltrombopag due to the potential for falsely elevated results. Calcium [Mass/Vol] 8.8 mg/dL Normal 8.4 - 10. 2 mg/dL AO ADM SS Chloride [Moles/Vol] 107 mmol/L Normal 98 - 10 7 mmol/L AO ADM SS CO2 [Moles/Vol] 25 mmol/L Normal 22 - 29 mmol/L AO ADM SS Creatinine [Mass/Vol] 0.80 mg/dL Normal 0.51 - 0.95 mg/dL AO ADM SS Electrolyte Balance 8.0 mEq/L Normal 4.0 - 15 .0 mEq/L AO ADM SS Eosinophil, Absolute 0.2 103/mcL Normal 0.0 - 0 .7 10^3/mcL AO Workflow SS Eosinophils/100 WBC (Bld) 6.3 % High 0.0 - 6.0 % AO Workflow SS Erythrocyte distribution width (RBC) [Ratio] 14.7 % Normal 11.5 - 15.5 % AO Workflow SS Estimated Glomerular Filtration Rate 85 ml/min/1.73sqm Invalid Interpretation Code AO Chemistry S Comment on above: Interpretive Data: Stages of Chronic Kidney Disease (CKD) Stage Description eGFR(ml/min/1.73 sq.m.) CKD 1 Normal kidney function or >=90 normal kindney function with possible kidney damage (ex. Proteinuria) CKD 2 Kidney damage with mild loss 60-89 of kidney function CKD 3a Mild to moderate loss of kidney 45-59 function CKD 3b Moderate to severe loss of 30-44 of kindey function CKD 4 Severe loss of kidney function 15-29 CKD 5 Kidney failure <15 Note: (go live 2024) the eGFR calculation was updated to the 2020 CKD-EPI creatinine equation without a race factor to calculate the eGFR results. Globulin 4.4 G/dL Normal 2.7 - 4.4 G/dL AO ADM SS Glucose [Mass/Vol] 138 mg/dL High 70 - 105 mg/dL AO ADM SS Hematocrit (Bld) [Volume fraction] 37.2 % Normal 34.0 - 46.0 % AO Workflow SS Hemoglobin (Bld) [Mass/Vol] 12.7 G/dL Normal 12.0 - 16.0 G/dL AO Workflow SS INR Coag (PPP) [Relative time] 1.5 {INR} Invalid Interpretation Code AO [facility] SS Comment on above: Interpretive Data: Finesse davis [employer] [place] [employer] (CHEST, 1992, 102:312S-25S) recommended therapeutic range for oral anticoagulant therapy is: LOW RISK: Prophylaxis of venous thrombosis INR: 2.0-3.0 Treatment of pulmonary embolism 2.0-3.0 Prevention of systemic embolism 2.0-3.0 HIGH RISK: Mechanical prosthetic valves 2.5-3.5 Lipase [Catalytic activity/Vol] 100 U/L High 16 - 77 U/L AO ADM SS Lymphocytes (Bld) [#/Vol] 1.1 103/mcL Normal 0.9 - 4.3 10^3/mcL AO Workflow SS Lymphocytes/100 WBC (Bld) 30.5 % Normal 20.0 - 40.0 % AO Workflow SS MCH (RBC) [Entitic mass] 35.8 pg High 27.0 - 33.0 pg AO Workflow SS MCHC 34.2 G/dL Normal 32.0 - 36.0 G/dL AO Workflow SS MCV (RBC) [Entitic vol] 104.8 fL High 80.0 - 99.0 fL AO Workflow SS Monocytes (Bld) [#/Vol] 0.4 103/mcL Normal 0.1 - 1.4 10^3/mcL AO Workflow SS Monocytes/100 WBC (Bld) 11.4 % Normal 2.0 - 13.0 % AO Workflow SS Neutrophils (Bld) [#/Vol] 1.9 103/mcL Low 2.3 - 8.1 10^3/mcL AO Workflow SS Neutrophils/100 WBC (Bld) 51.6 % Normal 50.0 - 75.0 % AO Workflow SS Platelet mean volume (Bld) [Entitic vol] 9.3 fL Normal 6.6 - 10.5 fL AO Workflow SS Platelets (Bld) [#/Vol] 50 103/mcL Low 150 - 450 10^3/mcL AO Workflow SS Potassium [Moles/Vol] 3.6 mmol/L Normal 3.5 - 5.1 mmol/L AO ADM SS Protein [Mass/Vol] 7.3 G/dL Normal 6.4 - 8.2 G/dL AO ADM SS PT Coag (PPP) [Time] 16.9 s High 9.0 - 1 4.4 seconds AO [facility] SS RBC (Bld) [#/Vol] 3.55 106/mcL Low 4.10 - 5.30 10^6/mcL AO Workflow SS Sodium [Moles/Vol] 140 mmol/L Normal 136 - 145 mmol/L AO ADM SS Urea nitrogen [Mass/Vol] 8 mg/dL Normal 7 - 18 mg/dL AO ADM SS Urea nitrogen/Creatinine [Mass ratio] 10 ratio Normal 7 - 27 ratio AO ADM SS WBC (Bld) [#/Vol] 3.6 103/mcL Low 4.5 - 10.8 10^3/mcL AO Workflow SS LIPon 01-19-2025 Lipase Level 100 U/L High 16-77 [facility] Comment on above: Performed By: #### C BC, ADIFF, GFR, PRO, CMP, ANEU #### [id number] [place], [place] [address] PROon 01-19-2025 PT Coag (PPP) [Time] 16.9 s High 9.0-14.4 [facility] Comment on above: Performed By: #### C BC, ADIFF, GFR, PRO, CMP, ANEU #### [address] [place], [place] [address] PT International Ratio 1.5 Normal [facility] Comment on above: Result Comment: The [employer] [place] [employer] (CHEST, 1992, 102:312S-25S) recommended therapeutic range for oral anticoagulant therapy is: LOW RISK: Prophylaxis of venous thrombosis INR: 2.0-3.0 Treatment of pulmonary embolism 2.0-3.0 Prevention of systemic embolism 2.0-3.0 HIGH RISK: Mechanical prosthetic valves 2.5-3.5 Performed By: #### C BC, ADIFF, GFR, PRO, CMP, ANEU #### [address] [address] LABORATORYOrdered By: Adry metcalf on 01-17-2025 Glucose [Mass/Vol] 170 mg/dL High 70 - 110 mg/dL [facility] HbA1c (Bld) [Mass fraction] 5.7 % [facility] Performed By dAry Prieto PharmD [facility] Performing Location [facility] LABORATORYOrdered By: SYSTEM SYSTEM on 12-28-2024 INR Coag (PPP) [Relative time] 1.4 {INR} Invalid Interpretation Code AO [facility] SS Comment on above: Interpretive Data: T he [employer] [place] [employer] (CHEST, 1991, 102:312S-25S) recommended therapeutic range for oral anticoagulant therapy is: LOW RISK: Prophylaxis of venous thrombosis INR: 2.0-3.0 Treatment of pulmonary embolism 2.0-3.0 Prevention of systemic embolism 2.0-3.0 HIGH RISK: Mechanical prosthetic valves 2.5-3.5 PT Coag (PPP) [Time] 16.4 s High 9.0 - 1 4.4 seconds AO [facility] SS PROon 12-28-2024 PT Coag (PPP) [Time] 16.4 s High 9.0-14.4 [facility] Comment on above: Performed By: #### C BC, ADIFF, GFR, PRO, CMP, ANEU #### [address] [address] PT International Ratio 1.4 Normal [facility] Comment on above: Result Comment: The [employer] [place] [employer] (CHEST, 1991, 102:312S-25S) recommended therapeutic range for oral anticoagulant therapy is: LOW RISK: Prophylaxis of venous thrombosis INR: 2.0-3.0 Treatment of pulmonary embolism 2.0-3.0 Prevention of systemic embolism 2.0-3.0 HIGH RISK: Mechanical prosthetic valves 2.5-3.5 Performed By: #### C BC, ADIFF, GFR, PRO, CMP, ANEU #### [address] [address] US ABDOMEN COMPLETEon 2024 US ABDOMEN COMPLETE ORIGINAL EXAMINATION: COMPLETE ABDOMINAL ULTRASOUND 12/28/2024 8:11 am COMPARISON: Abdominal ultrasound dated 08/25/2024 HISTORY: ORDERING SYSTEM PROVIDED HISTORY: Reason for Exam: Cholelithiasis, rule out abdominal ascites FINDINGS: LIVER: The liver demonstrates increased echogenicity without evidence of intrahepatic biliary ductal dilatation. There is heterogeneous echotexture and lobular contour. The liver measures 16 cm. BILIARY SYSTEM: The gallbladder wall measures 3 mm. There is an echogenic nonmobile shadowing focus at the gallbladder neck measuring 1.4 x 1.3 by 1.5 cm. There is no evidence of twinkle artifact on Doppler. Common bile duct is within normal limits measuring 3.7 mm. KIDNEYS: The kidneys are unremarkable in appearance without evidence of hydronephrosis. The right kidney measures 10.6 cm in the left kidney measures 12.5 cm. PANCREAS: The pancreas partially obscured due to shadowing bowel gas. SPLEEN: The spleen is unremarkable in appearance. The spleen is enlarged measuring 16.2 cm. There are multiple splenic varices. IVC: The IVC is patent. AORTA: Aorta is patent without aneurysm. OTHER: No evidence of ascites. IMPRESSION: 1. Findings compatible with hepatic cirrhosis and sequela of portal hypertension including splenomegaly and splenic varices. 2. Nonmobile shadowing focus at the gallbladder neck measuring 1.4 x 1.3 x 1.5 cm. Differential includes a gallstone versus polyp. Consider CT of the abdomen for confirmation. Per SRU criteria gallbladder consensus conference guidelines a polyp of this size would be recommended for surgical consult. Interpreted by: Liz Navarro Preliminary Report By: Liz Navarro Electronically signed By Liz Navarro Dictated Date: 12/28/2024 9:07:50 AM Prelim Date: 12/28/2024 9:13:25 AM Sign Date: 12/28/2024 9:13:25 AM Ordering Provider: ILEANA GILBERT Interpreted by: Liz Navarro Preliminary Report By: Liz Navarro Electronically signed By Liz Navarro Dictated Date: 12/28/2024 9:07:50 AM Prelim Date: 12/28/2024 9:13:25 AM Sign Date: 12/28/2024 9:13:25 AM Ordering Provider: ILEANA GILBERT Normal [facility] .Auto Diffon 12-21-2024 Basophil, Absolute 0.0 10 3/mcL Normal 0.0-0.3 [facility] Comment on above: Performed By: #### C BC, ADIFF, GFR, PRO, CMP, ANEU #### [facility] [address] [place], [place] [address] Basophils/100 WBC (Bld) 0.5 % Normal 0.0-2.5 [facility] Comment on above: Performed By: #### C BC, ADIFF, GFR, PRO, CMP, ANEU #### [facility] [address] [place], [place] [address] Eosinophil, Absolute 0.3 10 3/mcL Normal 0.0-0.7 [facility] Comment on above: Performed By: #### C BC, ADIFF, GFR, PRO, CMP, ANEU #### [address] [address] Eosinophils/100 WBC (Bld) 7.3 % High 0.0-6.0 [facility] Comment on above: Performed By: #### C BC, ADIFF, GFR, PRO, CMP, ANEU #### [address] [address] Lymphocyte, Absolute 1.1 10 3/mcL Normal 0.9-4.3 [facility] Comment on above: Performed By: #### C BC, ADIFF, GFR, PRO, CMP, ANEU #### [address] [address] Lymphocytes/100 WBC (Bld) 29.0 % Normal 20.0-40.0 [facility] Comment on above: Performed By: #### C BC, ADIFF, GFR, PRO, CMP, ANEU #### [address] [address] Monocyte, Absolute 0.4 10 3/mcL Normal 0.1-1.4 [facility] Comment on above: Performed By: #### C BC, ADIFF, GFR, PRO, CMP, ANEU #### [address] [address] Monocytes/100 WBC (Bld) 11.2 % Normal 2.0-13.0 [facility] Comment on above: Performed By: #### C BC, ADIFF, GFR, PRO, CMP, ANEU #### [address] [address] Neutrophils/100 WBC (Bld) 52.0 % Normal 50.0-75.0 [facility] Comment on above: Performed By: #### C BC, ADIFF, GFR, PRO, CMP, ANEU #### [address] [address] .GFRon 12-21-2024 Estimated Glomerular Filtration Rate 82 ml/min/1.73sqm Normal [facility] Comment on above: Result Comment: Stages of Chronic Kidney Disease (CKD) Stage Description eGFR(ml/min/1.73 sq.m.) CKD 1 Normal kidney function or >=90 normal kindney function with possible kidney damage (ex. Proteinuria) CKD 2 Kidney damage with mild loss 60-89 of kidney function CKD 3a Mild to moderate loss of kidney 45-59 function CKD 3b Moderate to severe loss of 30-44 of kindey function CKD 4 Severe loss of kidney function 15-29 CKD 5 Kidney failure <15 Note: (go live 2024) the eGFR calculation was updated to the 2020 CKD-EPI creatinine equation without a race factor to calculate the eGFR results. Performed By: #### C BC, ADIFF, GFR, PRO, CMP, ANEU #### [address] [address] .NEUABSon 12-21-2024 Neutrophil, Absolute 1.9 10 3/mcL Low 2.3-8.1 [facility] Comment on above: Performed By: #### C BC, ADIFF, GFR, PRO, CMP, ANEU #### [address] [address] CBCon 12-21-2024 Erythrocyte distribution width (RBC) [Ratio] 15.3 % Normal 11.5-15.5 [facility] Comment on above: Performed By: #### C BC, ADIFF, GFR, PRO, CMP, ANEU #### [address] [address] Hematocrit (Bld) [Volume fraction] 37.3 % Normal 34.0-46.0 [facility] Comment on above: Performed By: #### C BC, ADIFF, GFR, PRO, CMP, ANEU #### [address] [address] Hgb 12.8 G/dL Normal 12.0-16.0 [facility] Comment on above: Performed By: #### C BC, ADIFF, GFR, PRO, CMP, ANEU #### [address] [address] MCH (RBC) [Entitic mass] 36.0 pg High 27.0-33.0 [facility] Comment on above: Performed By: #### C BC, ADIFF, GFR, PRO, CMP, ANEU #### [address] [address] MCHC 34.2 G/dL Normal 32.0-36.0 [facility] Comment on above: Performed By: #### C BC, ADIFF, GFR, PRO, CMP, ANEU #### [address] [address] MCV (RBC) [Entitic vol] 105.1 fL High 80.0-99.0 [facility] Comment on above: Performed By: #### C BC, ADIFF, GFR, PRO, CMP, ANEU #### [address] [address] Platelet 55 10 3/mcL Low 150-450 [facility] Comment on above: Performed By: #### C BC, ADIFF, GFR, PRO, CMP, ANEU #### [place] [address] Platelet mean volume (Bld) [Entitic vol] 9.2 fL Normal 6.6-10.5 [facility] Comment on above: Performed By: #### C BC, ADIFF, GFR, PRO, CMP, ANEU #### [address] [address] RBC 3.55 10 6/mcL Low 4.10-5.30 [facility] Comment on above: Performed By: #### C BC, ADIFF, GFR, PRO, CMP, ANEU #### [address] [address] WBC 3.7 10 3/mcL Low 4.5-10.8 [facility] Comment on above: Performed By: #### C BC, ADIFF, GFR, PRO, CMP, ANEU #### [place] [id number] CMPon 12-21-2024 Albumin Level 3.0 G/dL Low 3.5-5.0 [facility] Comment on above: Performed By: #### C BC, ADIFF, GFR, PRO, CMP, ANEU #### [place] [address] Albumin/Globulin [Mass ratio] 0.6 {ratio} Low 1.1-2.5 [facility] Comment on above: Performed By: #### C BC, ADIFF, GFR, PRO, CMP, ANEU #### [place] [address] ALP [Catalytic activity/Vol] 202 U/L High 40-135 [facility] Comment on above: Performed By: #### C BC, ADIFF, GFR, PRO, CMP, ANEU #### [place] [address] ALT [Catalytic activity/Vol] 37 U/L Normal 14-59 [facility] Comment on above: Performed By: #### C BC, ADIFF, GFR, PRO, CMP, ANEU #### [place] [address] AST [Catalytic activity/Vol] 67 U/L High 10-40 [facility] Comment on above: Performed By: #### C BC, ADIFF, GFR, PRO, CMP, ANEU #### [place] [address] Bili Total 3.7 mg/dL High 0.2-1.0 [facility] Comment on above: Result Comment: Use of this assay is not recommended for patients undergoing treatment with eltrombopag due to the potential for falsely elevated results. Performed By: #### C BC, ADIFF, GFR, PRO, CMP, ANEU #### [place] [address] BUN/Creatinine Ratio 10 ratio Normal 7-27 [facility] Comment on above: Performed By: #### C BC, ADIFF, GFR, PRO, CMP, ANEU #### [place] [address] Calcium [Mass/Vol] 8.9 mg/dL Normal 8.4-10.2 [facility] Comment on above: Performed By: #### C BC, ADIFF, GFR, PRO, CMP, ANEU #### [place] [address] Chloride [Moles/Vol] 107 mmol/L Normal 98-107 [facility] Comment on above: Performed By: #### C BC, ADIFF, GFR, PRO, CMP, ANEU #### [place] [address] CO2 [Moles/Vol] 28 mmol/L Normal 22-29 [facility] Comment on above: Performed By: #### C BC, ADIFF, GFR, PRO, CMP, ANEU #### [place] [address] Creatinine [Mass/Vol] 0.82 mg/dL Normal 0.51-0.95 [facility] Comment on above: Performed By: #### C BC, ADIFF, GFR, PRO, CMP, ANEU #### [place] [address] Electrolyte Balance 7.0 mEq/L Normal 4.0-15.0 [facility] Comment on above: Performed By: #### C BC, ADIFF, GFR, PRO, CMP, ANEU #### [place] [address] Globulin 4.8 G/dL High 2.7-4.4 [facility] Comment on above: Performed By: #### C BC, ADIFF, GFR, PRO, CMP, ANEU #### [place] [address] Glucose [Mass/Vol] 105 mg/dL Normal 70-105 [facility] Comment on above: Performed By: #### C BC, ADIFF, GFR, PRO, CMP, ANEU #### [place] [address] Potassium [Moles/Vol] 4.0 mmol/L Normal 3.5-5.1 [facility] Comment on above: Performed By: #### C BC, ADIFF, GFR, PRO, CMP, ANEU #### [address] [address] Sodium [Moles/Vol] 142 mmol/L Normal 136-145 [facility] Comment on above: Performed By: #### C BC, ADIFF, GFR, PRO, CMP, ANEU #### [address] [address] Total Protein 7.8 G/dL Normal 6.4-8.2 [facility] Comment on above: Performed By: #### C BC, ADIFF, GFR, PRO, CMP, ANEU #### [address] [address] Urea nitrogen [Mass/Vol] 8 mg/dL Normal 7-18 [facility] Comment on above: Performed By: #### C BC, ADIFF, GFR, PRO, CMP, ANEU #### [address] [address] HFPon 12-21-2024 Bili Indirect 2.7 mg/dL Normal [facility] Comment on above: Performed By: #### C BC, ADIFF, GFR, PRO, CMP, ANEU #### [address] [address] Bili Direct 1.0 mg/dL High 0.0-0.2 [facility] Comment on above: Result Comment: Use of this assay is not recommended for patients undergoing treatment with eltrombopag due to the potential for falsely elevated results. Performed By: #### C BC, ADIFF, GFR, PRO, CMP, ANEU #### [address] [address] LABORATORYOrdered By: SYSTEM SYSTEM on 12-21-2024 Basophils (Bld) [#/Vol] 0.0 103/mcL Normal 0.0 - 0.3 10^3/mcL AO Workflow SS Basophils/100 WBC (Bld) 0.5 % Normal 0.0 - 2.5 % AO Workflow SS Bilirubin.direct [Mass/Vol] 2.7 mg/dL Invalid Interpretation Code AO Chemistry S Bilirubin.direct [Mass/Vol] 1.0 mg/dL High 0.0 - 0.2 mg/dL AO ADM SS Comment on above: Interpretive Data: U se of this assay is not recommended for patients undergoing treatment with eltrombopag due to the potential for falsely elevated results. Calcium [Mass/Vol] 8.9 mg/dL Normal 8.4 - 10. 2 mg/dL AO ADM SS Chloride [Moles/Vol] 107 mmol/L Normal 98 - 10 7 mmol/L AO ADM SS CO2 [Moles/Vol] 28 mmol/L Normal 22 - 29 mmol/L AO ADM SS Creatinine [Mass/Vol] 0.82 mg/dL Normal 0.51 - 0.95 mg/dL AO ADM SS Electrolyte Balance 7.0 mEq/L Normal 4.0 - 15 .0 mEq/L AO ADM SS Eosinophil, Absolute 0.3 103/mcL Normal 0.0 - 0 .7 10^3/mcL AO Workflow SS Eosinophils/100 WBC (Bld) 7.3 % High 0.0 - 6.0 % AO Workflow SS Erythrocyte distribution width (RBC) [Ratio] 15.3 % Normal 11.5 - 15.5 % AO Workflow SS Estimated Glomerular Filtration Rate 82 ml/min/1.73sqm Invalid Interpretation Code AO Chemistry S Comment on above: Interpretive Data: Stages of Chronic Kidney Disease (CKD) Stage Description eGFR(ml/min/1.73 sq.m.) CKD 1 Normal kidney function or >=90 normal kindney function with possible kidney damage (ex. Proteinuria) CKD 2 Kidney damage with mild loss 60-89 of kidney function CKD 3a Mild to moderate loss of kidney 45-59 function CKD 3b Moderate to severe loss of 30-44 of kindey function CKD 4 Severe loss of kidney function 15-29 CKD 5 Kidney failure <15 Note: (go live 2024) the eGFR calculation was updated to the 2020 CKD-EPI creatinine equation without a race factor to calculate the eGFR results. Glucose [Mass/Vol] 105 mg/dL Normal 70 - 105 mg/dL AO ADM SS Hematocrit (Bld) [Volume fraction] 37.3 % Normal 34.0 - 46.0 % AO Workflow SS Hemoglobin (Bld) [Mass/Vol] 12.8 G/dL Normal 12.0 - 16.0 G/dL AO Workflow SS Lymphocytes (Bld) [#/Vol] 1.1 103/mcL Normal 0.9 - 4.3 10^3/mcL AO Workflow SS Lymphocytes/100 WBC (Bld) 29.0 % Normal 20.0 - 40.0 % AO Workflow SS MCH (RBC) [Entitic mass] 36.0 pg High 27.0 - 33.0 pg AO Workflow SS MCHC 34.2 G/dL Normal 32.0 - 36.0 G/dL AO Workflow SS MCV (RBC) [Entitic vol] 105.1 fL High 80.0 - 99.0 fL AO Workflow SS Monocytes (Bld) [#/Vol] 0.4 103/mcL Normal 0.1 - 1.4 10^3/mcL AO Workflow SS Monocytes/100 WBC (Bld) 11.2 % Normal 2.0 - 13.0 % AO Workflow SS Neutrophils (Bld) [#/Vol] 1.9 103/mcL Low 2.3 - 8.1 10^3/mcL AO Workflow SS Neutrophils/100 WBC (Bld) 52.0 % Normal 50.0 - 75.0 % AO Workflow SS Platelet mean volume (Bld) [Entitic vol] 9.2 fL Normal 6.6 - 10.5 fL AO Workflow SS Platelets (Bld) [#/Vol] 55 103/mcL Low 150 - 450 10^3/mcL AO Workflow SS Potassium [Moles/Vol] 4.0 mmol/L Normal 3.5 - 5.1 mmol/L AO ADM SS RBC (Bld) [#/Vol] 3.55 106/mcL Low 4.10 - 5.30 10^6/mcL AO Workflow SS Sodium [Moles/Vol] 142 mmol/L Normal 136 - 145 mmol/L AO ADM SS Urea nitrogen [Mass/Vol] 8 mg/dL Normal 7 - 18 mg/dL AO ADM SS Urea nitrogen/Creatinine [Mass ratio] 10 ratio Normal 7 - 27 ratio AO ADM SS WBC (Bld) [#/Vol] 3.7 103/mcL Low 4.5 - 10.8 10^3/mcL AO Workflow SS Laboratory - Chemistry and C hemistry - challengeOrdered By: SYSTEM SYSTEM on 12-21-2024 Albumin BCP dye [Mass/Vol] 3.0 G/dL Low 3.5 - 5.0 G/dL AO ADM SS Albumin/Globulin [Mass ratio] 0.6 {ratio} Low 1.1 - 2.5 ratio AO ADM SS ALP [Catalytic activity/Vol] 202 U/L High 40 - 135 U/L AO ADM SS ALT With P-5'-P [Catalytic activity/Vol] 37 U/L Normal 14 - 59 U/L AO ADM SS AST With P-5'-P [Catalytic activity/Vol] 67 U/L High 10 - 40 U/L AO ADM SS Bilirubin [Mass/Vol] 3.7 mg/dL High 0.2 - 1 .0 mg/dL AO ADM SS Comment on above: Interpretive Data: U se of this assay is not recommended for patients undergoing treatment with eltrombopag due to the potential for falsely elevated results. Protein [Mass/Vol] 7.8 G/dL Normal 6.4 - 8.2 G/dL AO ADM SS No Panel InformationOrdered By: SYSTEM SYSTEM on 12-21-2024 Globulin 4.8 G/dL High 2.7 - 4.4 G/dL AO ADM SS NCS and/or EMG Patienton NCS and/or EMG Patient [facility]/Neurology [address] [place] [address] MR#: [id number] Acct: [id number] Name: SONDRA DUVAL Rep #: [id number] : 1965 59 From: Porter Donovan MD Referring Dr: Zeinab Roman Status: REG CLI Location: [facility] Date: 11/08/24 Sex: F C NCS and/or EMG Patient Report Ordering Doctor: Zeinab Roman DATE OF SERVICE: 11/08/24 Sondra presents for electrodiagnostic testing of the left upper limb. She reports numbness and tingling in the left arm. Electrodiagnostic findings: Left median motor nerve demonstrates prolonged latency with normal amplitude and conduction velocity. Left ulnar motor response within normal limits. Normal median and ulnar F???waves. Prolonged left median sensory latency at the wrist. Needle EMG testing was performed in the left upper limb. All muscles tested showed no evidence of denervation with normal motor unit action potentials. Electrodiagnostic impression: This is an abnormal study in the left upper limb 1. Electrodiagnostic findings suggestive of left-sided median mononeuropathy. This consistent with a mild left carpal tunnel syndrome. Multi Select Codes Neurology Neurology Interp Codes: 57102-20 Musc test done w/n test comp (interp) and 36693-39 Nrv cndj tst 5-6 studies (inter) 11/08/245 Date Porter Donovan MD CC: [employer] PATCH[employer] HELPER-C Rosario Walters; AKBAR Tubbs; Dr. 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 Alignment is within normal limits. Joint spaces are maintained. There is mild lateral soft tissue swelling. IMPRESSION: Mild soft tissue swelling. Interpreted by: Ike Jain MD Preliminary Report By: Ike Jain MD Electronically signed By Ike Jain MD Dictated Date: 09/14/2024 11:35:04 AM Prelim Date: 09/14/2024 11:35:41 AM Sign Date: 09/14/2024 11:35:41 AM Ordering Provider: ROSARIO WALTERS [facility] XR FOOT MINIMUM 3 VIEWS [facility] 09-14-2024 XR FOOT MINIMUM 3 VIEWS RIGHT ORIGINAL EXAMINATION: THREE XRAY VIEWS OF THE RIGHT FOOT09/12/2024 12:25 pm COMPARISON: None HISTORY: ORDERING SYSTEM PROVIDED HISTORY: Reason for Exam: right ankle pain and swelling FINDINGS: No fracture or dislocation is seen. No foot deformities are seen. The joint spaces are preserved and in normal alignment. No suspicious osseous lesions seen. No significant joint effusion or soft tissue swelling. IMPRESSION: No acute osseous abnormality. I have personally reviewed the images of this examination and agree with the resident's findings and interpretation. Interpreted by: Daniel Wilson MD Preliminary Report By: Harvinder Spaulding MD Electronically signed By Daniel Wilson MD Dictated Date: 09/14/2024 1:14:38 PM Prelim Date: 09/14/2024 2:47:04 PM Sign Date: 09/14/2024 2:47:04 PM Ordering Provider: ROSARIO SELENA [facility] LABORATORYOrdered By: Adry metcalf on 09-13-2024 Glucose [Mass/Vol] 132 mg/dL High 70 - 110 mg/dL [facility] HbA1c (Bld) [Mass fraction] 5.8 % [facility] Performed By Adry Prieto PharmD [facility] Performing Location [facility] US ABDOMEN LIMITEDon 025 US ABDOMEN LIMITED ORIGINAL EXAMINATION: RIGHT UPPER QUADRANT ULTRASOUND 08/25/2024 7:18 am COMPARISON: CT abdomen pelvis 03/31/2024 HISTORY: ORDERING SYSTEM PROVIDED HISTORY: Reason for Exam: CIRRHOSIS All images are recorded and archived. FINDINGS: LIVER: Liver demonstrates macro lobular contour and diffuse coarsening of the a hepatic echotexture and masking of the portal triads. Liver measures 17.3 cm in greatest length. BILIARY SYSTEM: Gallbladder is partially contracted containing multiple shadowing stones. Gallbladder wall is prominent measuring 4 mm. There is no ultrasound West sign. Common bile duct is within normal limits measuring 6 mm. RIGHT KIDNEY: The right kidney is grossly unremarkable without evidence of hydronephrosis. Right kidney measures 11.2 x 4.6 x 5.2 cm. There is normal renal cortical thickness and echotexture. PANCREAS: Visualized portions of the pancreas are unremarkable. OTHER: No evidence of right upper quadrant ascites. IMPRESSION: 1. Findings compatible with hepatic cirrhosis. 2. Cholelithiasis with mild gallbladder wall thickening. This may be related to the patient's underlying liver disease. If there is clinical concern for acute cholecystitis, HIDA scan may be obtained for further assessment. Interpreted by: Daniel Jo DO Preliminary Report By: Daniel Jo DO Electronically signed By Daniel Jo DO Dictated Date: 08/25/2024 8:42:52 AM Prelim Date: 08/25/2024 8:45:01 AM Sign Date: 08/25/2024 8:45:01 AM Ordering Provider: SOY Funes [facility] Basic metabolic 2000 panelon 08-16-2024 Anion gap [Moles/Vol] 9 mmol/L Normal 8-15 [facility] Comment on above: Order Comment: Speci men Type: BLOOD SPECIMEN Ordering Facility: [facility] Address: [address] [place] [address] Performed By: #### 2 4321-2 #### [facility] CLIA [id number] [address] [place] [address] [place] Calcium [Mass/Vol] 9.1 mg/dL Normal 8.5-10.2 [facility] Comment on above: Order Comment: Speci men Type: BLOOD SPECIMEN Ordering Facility: [facility] Address: [address] [place] [address] Performed By: #### 2 4321-2 #### [facility] CLIA [id number] [address] [place] [address] [place] Chloride [Moles/Vol] 105 mmol/L Normal 98-107 [facility] Comment on above: Order Comment: Speci men Type: BLOOD SPECIMEN Ordering Facility: [facility] Address: [address] [place] [address] Performed By: #### 2 4321-2 #### [facility] CLIA [id number] [address] [place] [address] [place] CO2 [Moles/Vol] 25 mmol/L Normal 22-30 [facility] Comment on above: Order Comment: Speci men Type: BLOOD SPECIMEN Ordering Facility: [facility] Address: [address] [place] [address] Performed By: #### 2 4321-2 #### [facility] CLIA [id number] [address] [place] [address] [place] Creatinine [Mass/Vol] 0.67 mg/dL Normal 0.58-0.96 [facility] Comment on above: Order Comment: Speci men Type: BLOOD SPECIMEN Ordering Facility: [facility] Address: [address] [place] [address] Performed By: #### 2 4321-2 #### [facility] CLIA [id number] [address] [place] [address] [place] Creatinine and Glomerular filtration rate.predicted panel (S/P/Bld) 101 mL/min/1.73m??? Normal >=60 [facility] Comment on above: Order Comment: Speci men Type: BLOOD SPECIMEN Ordering Facility: [facility] Address: [address] [place] [address] Result Comment: Myla mated Glomerular Filtration Rate (eGFR) is calculated using the 2020 CKD-EPI creatinine equation. This equation utilizes serum creatinine, sex, and age as parameters. The creatinine assay has traceable calibration to isotope dilution-mass spectrometry. Refer to KDIGO guidelines for clinical interpretation. In patients with unstable renal function, e.g. those with acute kidney injury, the eGFR may not accurately reflect actual GFR. Performed By: #### 2 4321-2 #### [id number] [address] [place] [address] [place] Glucose [Mass/Vol] 168 mg/dL High 74-99 [facility] Comment on above: Order Comment: Speci clint Type: BLOOD SPECIMEN Ordering Facility: [facility] Address: [address] [place] [address] Result Comment: The [place] Diabetes Association (ADA) provides guidance for cutoff values for fasting glucose and random glucose. The ADA defines fasting as no caloric intake for at least 8 hours. Fasting plasma glucose results between 100 to 125 mg/dL indicate increased risk for diabetes (prediabetes). Fasting plasma glucose results greater than or equal to 126 mg/dL meet the criteria for diagnosis of diabetes. In the absence of unequivocal hyperglycemia, results should be confirmed by repeat testing. In a patient with classic symptoms of hyperglycemia or hyperglycemic crisis, random plasma glucose results greater than or equal to 200 mg/dL meet the criteria for diagnosis of diabetes. Reference: Standards of Medical Care in Diabetes 2016, [place] Diabetes Association. Diabetes Care. 2016.39(Suppl 1). Performed By: #### 2 4321-2 #### [facility] CLIA [id number] [address] [place] [address] [place] Potassium [Moles/Vol] 3.9 mmol/L Normal 3.7-5.1 [facility] Comment on above: Order Comment: Speci men Type: BLOOD SPECIMEN Ordering Facility: [facility] Address: [address] [place] [address] Performed By: #### 2 4321-2 #### [facility] CLIA [id number] [address] [place] [address] [place] Sodium [Moles/Vol] 139 mmol/L Normal 136-144 [facility] Comment on above: Order Comment: Speci men Type: BLOOD SPECIMEN Ordering Facility: [facility] Address: [address] [place] [address] Performed By: #### 2 4321-2 #### [facility] CLIA [id number] [address] [place] [address] [place] Urea nitrogen [Mass/Vol] 6 mg/dL Low 7-21 [facility] Comment on above: Order Comment: Speci men Type: BLOOD SPECIMEN Ordering Facility: [facility] Address: [address] [place] [address] Performed By: #### 2 4321-2 #### [facility] CLIA [id number] [address] [place] [address] [place] CT ABD/PEL W IVCONon 025 CT ABD/PEL W IVCON * * *Final Report* * * DATE OF EXAM: Aug 16 2024 3:24PM [facility] 0530 - CT ABD/PEL W IVCON / PROCEDURE REASON: gross hemauria * * * * Physician Interpretation * * * * EXAMINATION: CT ABDOMEN AND PELVIS WITH IV CONTRAST CLINICAL HISTORY: Gross hematuria TECHNIQUE: CT of the abdomen and pelvis was performed using standard technique, scanning from just above the dome of the diaphragm to the upper thighs. Contrast: IV: 100 ml of Omnipaque 350 CT Radiation dose: Integrated Dose-length product (DLP) for this visit = 881 mGy*cm. CT Dose Reduction Employed: Automated exposure control(AEC) and iterative recon COMPARISON: MRI liver 03/08/2024 FINDINGS: LOWER CHEST: No significant abnormality. A 3 mm subpleural nodule of the middle lobe likely reflects a subpleural lymph node. HEPATOBILIARY: There is cirrhotic morphology evidenced by nodularity of its contours. Otherwise the liver enhances normally with no focal mass seen. A small stone is present within the otherwise unremarkable gallbladder. No biliary ductal dilatation. SPLEEN, PANCREAS, ADRENAL GLANDS: The spleen is enlarged to 19 cm in greatest craniocaudal dimension. Otherwise, within normal limits KIDNEYS, URETERS, BLADDER: Symmetric parenchymal enhancement with no obstructing calculus or hydronephrosis. Stable 8 mm cyst of the right upper pole. Ureters and bladder within normal limits. UTERUS, ADNEXA: The uterus is absent. No adnexal mass. BOWEL: No evidence of obstruction. Scattered diverticula present throughout the distal colon. Normal appendix. PERITONEAL/EXTRAPERITONEAL SPACE: No free air or free fluid. LYMPH NODES: There are few enlarged upper abdominal lymph nodes. For example, a lymph node to the right of the common hepatic artery (5:57) measures 11 mm in short axis dimension, and a precaval node (axial 44) measures 13 mm. Given the lack of adenopathy elsewhere, these may be reactive VASCULAR: Multiple perisplenic and periesophageal varices are present. ABDOMINAL WALL: Free of hernias. MUSCULOSKELETAL: No acute osseous abnormality. IMPRESSION: 1. No acute finding in the abdomen or pelvis. 2. Stigmata of cirrhosis and portal hypertension evidenced by nodularity of the hepatic contours, splenomegaly and perigastric/paraesophageal venous varices. 3. Cholelithiasis. 4. Few mildly enlarged upper abdominal lymph nodes are incidentally noted. Given the isolated finding, this may be reactive in nature. Attention on follow-up imaging is recommended. 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 Date/Time: Aug 20 2024 9:42A Dictated by : ALEXANDRO PALENCIA MD This examination was interpreted and the report reviewed and electronically signed by: ALEXANDRO PALENCIA MD on Aug 20 2024 9:57AM EST [id number] Normal [facility] .Auto Diffon 07-22-2024 Basophil, Absolute 0.0 10 3/mcL Normal 0.0-0.2 [facility] Comment on above: Performed By: #### C BC, ADIFF, GFR, PRO, CMP, ANEU #### [address] [address] Basophils/100 WBC (Bld) 0.6 % Normal 0.0-2.5 [facility] Comment on above: Performed By: #### C BC, ADIFF, GFR, PRO, CMP, ANEU #### [address] [address] Eosinophil, Absolute 0.2 10 3/mcL Normal 0.0-0.7 [facility] Comment on above: Performed By: #### C BC, ADIFF, GFR, PRO, CMP, ANEU #### [address] [address] Eosinophils/100 WBC (Bld) 4.5 % Normal 0.0-7.0 [facility] Comment on above: Performed By: #### C BC, ADIFF, GFR, PRO, CMP, ANEU #### [address] [address] Lymphocyte, Absolute 1.0 10 3/mcL Normal 0.9-4.3 [facility] Comment on above: Performed By: #### C BC, ADIFF, GFR, PRO, CMP, ANEU #### [address] [address] Lymphocytes/100 WBC (Bld) 24.1 % Normal 20.0-40.0 [facility] Comment on above: Performed By: #### C BC, ADIFF, GFR, PRO, CMP, ANEU #### [address] [address] Monocyte, Absolute 0.4 10 3/mcL Normal 0.1-1.4 [facility] Comment on above: Performed By: #### C BC, ADIFF, GFR, PRO, CMP, ANEU #### [address] [address] Monocytes/100 WBC (Bld) 10.2 % Normal 2.0-13.0 [facility] Comment on above: Performed By: #### C BC, ADIFF, GFR, PRO, CMP, ANEU #### [address] [place], [place] [address] Neutrophils/100 WBC (Bld) 60.6 % Normal 50.0-75.0 [facility] Comment on above: Performed By: #### C BC, ADIFF, GFR, PRO, CMP, ANEU #### [address] [address] .GFRon 07-22-2024 GFR Non- 81 ml/min/1.73sqm Normal [facility] Comment on above: Result Comment: GFR Population mean for , [...] 15 mL/min/1.73 square meters Performed By: #### C BC, ADIFF, GFR, PRO, CMP, ANEU #### [id number] [place], [place] [address] GFR 98 ml/min/1.73sqm Normal [facility] Comment on above: Result Comment: GFR Population mean for , [...] 15 mL/min/1.73 square meters Performed By: #### C BC, ADIFF, GFR, PRO, CMP, ANEU #### [place] [address] .NEUABSon 07-22-2024 Neutrophil, Absolute 2.4 10 3/mcL Normal 2.3-8.1 [facility] Comment on above: Performed By: #### C BC, ADIFF, GFR, PRO, CMP, ANEU #### [place] [address] CBCon 07-22-2024 Erythrocyte distribution width (RBC) [Ratio] 14.7 % Normal 11.5-15.5 [facility] Comment on above: Performed By: #### C BC, ADIFF, GFR, PRO, CMP, ANEU #### [place] [address] Hematocrit (Bld) [Volume fraction] 37.6 % Normal 34.0-46.0 [facility] Comment on above: Performed By: #### C BC, ADIFF, GFR, PRO, CMP, ANEU #### [place] [address] Hgb 13.0 G/dL Normal 12.0-16.0 [facility] Comment on above: Performed By: #### C BC, ADIFF, GFR, PRO, CMP, ANEU #### [place] [address] MCH (RBC) [Entitic mass] 35.3 pg High 27.0-33.0 [facility] Comment on above: Performed By: #### C BC, ADIFF, GFR, PRO, CMP, ANEU #### [place] [address] MCHC 34.7 G/dL Normal 32.0-36.0 [facility] Comment on above: Performed By: #### C BC, ADIFF, GFR, PRO, CMP, ANEU #### [place] [address] MCV (RBC) [Entitic vol] 102.0 fL High 80.0-99.0 [facility] Comment on above: Performed By: #### C BC, ADIFF, GFR, PRO, CMP, ANEU #### [address] [address] Platelet 61 10 3/mcL Low 150-450 [facility] Comment on above: Performed By: #### C BC, ADIFF, GFR, PRO, CMP, ANEU #### [address] [address] Platelet mean volume (Bld) [Entitic vol] 9.1 fL Normal 6.6-10.5 [facility] Comment on above: Performed By: #### C BC, ADIFF, GFR, PRO, CMP, ANEU #### [address] [address] RBC 3.69 10 6/mcL Low 4.10-5.30 [facility] Comment on above: Performed By: #### C BC, ADIFF, GFR, PRO, CMP, ANEU #### [address] [address] WBC 4.0 10 3/mcL Low 4.5-10.8 [facility] Comment on above: Performed By: #### C BC, ADIFF, GFR, PRO, CMP, ANEU #### [address] [address] CMPon 07-22-2024 Albumin Level 3.4 G/dL Low 3.5-5.0 [facility] Comment on above: Performed By: #### A KESHA, TSH, CMP, GFR, ADIFF, VIDH, FT4, LIPID, CBC #### [address] [address] Albumin/Globulin [Mass ratio] 0.7 {ratio} Low 1.1-2.5 [facility] Comment on above: Performed By: #### A KESHA, TSH, CMP, GFR, ADIFF, VIDH, FT4, LIPID, CBC #### [address] [address] ALP [Catalytic activity/Vol] 232 U/L High 40-135 [facility] Comment on above: Performed By: #### A KESHA, TSH, CMP, GFR, ADIFF, VIDH, FT4, LIPID, CBC #### [address] [address] ALT [Catalytic activity/Vol] 33 U/L Normal 14-59 [facility] Comment on above: Performed By: #### A KESHA, TSH, CMP, GFR, ADIFF, VIDH, FT4, LIPID, CBC #### [address] [address] AST [Catalytic activity/Vol] 68 U/L High 10-40 [facility] Comment on above: Performed By: #### A KESHA, TSH, CMP, GFR, ADIFF, VIDH, FT4, LIPID, CBC #### [address] [address] Bili Total 2.5 mg/dL High 0.2-1.0 [facility] Comment on above: Result Comment: Use of this assay is not recommended for patients undergoing treatment with eltrombopag due to the potential for falsely elevated results. Performed By: #### A KESHA, TSH, CMP, GFR, ADIFF, VIDH, FT4, LIPID, CBC #### [address] [address] BUN/Creatinine Ratio 8 ratio Normal 7-27 [facility] Comment on above: Performed By: #### A KESHA, TSH, CMP, GFR, ADIFF, VIDH, FT4, LIPID, CBC #### [address] [address] Calcium [Mass/Vol] 9.3 mg/dL Normal 8.4-10.2 [facility] Comment on above: Performed By: #### A KESHA, TSH, CMP, GFR, ADIFF, VIDH, FT4, LIPID, CBC #### [address] [address] Chloride [Moles/Vol] 107 mmol/L Normal 98-107 [facility] Comment on above: Performed By: #### A KESHA, TSH, CMP, GFR, ADIFF, VIDH, FT4, LIPID, CBC #### [address] [address] CO2 [Moles/Vol] 26 mmol/L Normal 22-29 [facility] Comment on above: Performed By: #### A KESHA, TSH, CMP, GFR, ADIFF, VIDH, FT4, LIPID, CBC #### [place] [address] Creatinine [Mass/Vol] 0.74 mg/dL Normal 0.55-1.02 [facility] Comment on above: Result Comment: Test ing performed on Siemens Dimension EXL analyzer using a modified kinetic Tasneem technique. Performed By: #### A KESHA, TSH, CMP, GFR, ADIFF, VIDH, FT4, LIPID, CBC #### [address] [address] Electrolyte Balance 8.0 mEq/L Normal 4.0-15.0 [facility] Comment on above: Performed By: #### A KESHA, TSH, CMP, GFR, ADIFF, VIDH, FT4, LIPID, CBC #### [place] [address] Globulin 4.6 G/dL Normal [facility] Comment on above: Performed By: #### A KESHA, TSH, CMP, GFR, ADIFF, VIDH, FT4, LIPID, CBC #### [address] [address] Glucose [Mass/Vol] 134 mg/dL High 70-105 [facility] Comment on above: Performed By: #### A KESHA, TSH, CMP, GFR, ADIFF, VIDH, FT4, LIPID, CBC #### [place] [address] Potassium [Moles/Vol] 4.1 mmol/L Normal 3.5-5.1 [facility] Comment on above: Performed By: #### A KESHA, TSH, CMP, GFR, ADIFF, VIDH, FT4, LIPID, CBC #### [address] [address] Sodium [Moles/Vol] 141 mmol/L Normal 136-145 [facility] Comment on above: Performed By: #### A KESHA, TSH, CMP, GFR, ADIFF, VIDH, FT4, LIPID, CBC #### [address] [address] Total Protein 8.0 G/dL Normal 6.4-8.2 [facility] Comment on above: Performed By: #### A KESHA, TSH, CMP, GFR, ADIFF, VIDH, FT4, LIPID, CBC #### [address] [address] Urea nitrogen [Mass/Vol] 6 mg/dL Low 7-18 [facility] Comment on above: Performed By: #### A KESHA, TSH, CMP, GFR, ADIFF, VIDH, FT4, LIPID, CBC #### [address] [address] FT4on 07-22-2024 Free T4 [Mass/Vol] 1.23 ng/dL Normal 0.76-1.46 [facility] Comment on above: Performed By: #### A KESHA, TSH, CMP, GFR, ADIFF, VIDH, FT4, LIPID, CBC #### [address] [address] LABORATORYOrdered By: SYSTEM SYSTEM on 07-22-2024 25-hydroxyvitamin D3 [Mass/Vol] 30.0 ng/mL Invalid Interpretation Code AO ADM SS Comment on above: Interpretive Data: I nterpretive Values Based on Total 25(OH) Vitamin D: Deficient <20 ng/mL Insufficient 20 - <30 ng/mL Sufficient 30-100 ng/mL Albumin BCP dye [Mass/Vol] 3.4 G/dL Low 3.5 - 5.0 G/dL AO ADM SS Albumin/Globulin [Mass ratio] 0.7 {ratio} Low 1.1 - 2.5 ratio AO ADM SS ALP [Catalytic activity/Vol] 232 U/L High 40 - 135 U/L AO ADM SS ALT With P-5'-P [Catalytic activity/Vol] 33 U/L Normal 14 - 59 U/L AO ADM SS AST With P-5'-P [Catalytic activity/Vol] 68 U/L High 10 - 40 U/L AO ADM SS Basophils (Bld) [#/Vol] 0.0 103/mcL Normal 0.0 - 0.2 10^3/mcL AO Workflow SS Basophils/100 WBC (Bld) 0.6 % Normal 0.0 - 2.5 % AO Workflow SS Bilirubin [Mass/Vol] 2.5 mg/dL High 0.2 - 1 .0 mg/dL AO ADM SS Comment on above: Interpretive Data: U se of this assay is not recommended for patients undergoing treatment with eltrombopag due to the potential for falsely elevated results. Calcium [Mass/Vol] 9.3 mg/dL Normal 8.4 - 10. 2 mg/dL AO ADM SS Chloride [Moles/Vol] 107 mmol/L Normal 98 - 10 7 mmol/L AO ADM SS CO2 [Moles/Vol] 26 mmol/L Normal 22 - 29 mmol/L AO ADM SS Creatinine [Mass/Vol] 0.74 mg/dL Normal 0.55 - 1.02 mg/dL AO ADM SS Comment on above: Interpretive Data: T esting performed on Siemens Dimension EXL analyzer using a modified kinetic Tasneem technique. Electrolyte Balance 8.0 mEq/L Normal 4.0 - 15 .0 mEq/L AO ADM SS Eosinophil, Absolute 0.2 103/mcL Normal 0.0 - 0 .7 10^3/mcL AO Workflow SS Eosinophils/100 WBC (Bld) 4.5 % Normal 0.0 - 7.0 % AO Workflow SS Erythrocyte distribution width (RBC) [Ratio] 14.7 % Normal 11.5 - 15.5 % AO Workflow SS Free T4 [Mass/Vol] 1.23 ng/dL Normal 0.76 - 1.46 ng/dL AO ADM SS GFR/1.73 sq M.predicted among blacks MDRD (S/P/Bld) [Vol rate/Area] 98 ml/min/1.73sqm Invalid Interpretation Code AO Chemistry S Comment on above: Interpretive Data: GFR Population mean for , Non- Americans Ages 20-29 = 116 mL/min/1.73 sq.m. Ages 30-39 = 107 mL/min/1.73 sq.m. Ages 40-49 = 99 mL/min/1.73 sq.m. Ages 50-59 = 93 mL/min/1.73 sq.m. Ages 60-69 = 85 mL/min/1.73 sq.m. Ages 70+ = 75 mL/min/1.73 sq.m. Chronic Kidney Disease: Less than 60 mL/min/1.73 square meters End Stage Renal Disease: Less than 15 mL/min/1.73 square meters GFR/1.73 sq M.predicted among non-blacks MDRD (S/P/Bld) [Vol rate/Area] 81 ml/min/1.73sqm Invalid Interpretation Code AO Chemistry S Comment on above: Interpretive Data: GFR Population mean for , Non- Americans Ages 20-29 = 116 mL/min/1.73 sq.m. Ages 30-39 = 107 mL/min/1.73 sq.m. Ages 40-49 = 99 mL/min/1.73 sq.m. Ages 50-59 = 93 mL/min/1.73 sq.m. Ages 60-69 = 85 mL/min/1.73 sq.m. Ages 70+ = 75 mL/min/1.73 sq.m. Chronic Kidney Disease: Less than 60 mL/min/1.73 square meters End Stage Renal Disease: Less than 15 mL/min/1.73 square meters Globulin 4.6 G/dL Invalid Interpretation Code AO ADM SS Glucose [Mass/Vol] 134 mg/dL High 70 - 105 mg/dL AO ADM SS Hematocrit (Bld) [Volume fraction] 37.6 % Normal 34.0 - 46.0 % AO Workflow SS Hemoglobin (Bld) [Mass/Vol] 13.0 G/dL Normal 12.0 - 16.0 G/dL AO Workflow SS Lymphocytes (Bld) [#/Vol] 1.0 103/mcL Normal 0.9 - 4.3 10^3/mcL AO Workflow SS Lymphocytes/100 WBC (Bld) 24.1 % Normal 20.0 - 40.0 % AO Workflow SS MCH (RBC) [Entitic mass] 35.3 pg High 27.0 - 33.0 pg AO Workflow SS MCHC 34.7 G/dL Normal 32.0 - 36.0 G/dL AO Workflow SS MCV (RBC) [Entitic vol] 102.0 fL High 80.0 - 99.0 fL AO Workflow SS Monocytes (Bld) [#/Vol] 0.4 103/mcL Normal 0.1 - 1.4 10^3/mcL AO Workflow SS Monocytes/100 WBC (Bld) 10.2 % Normal 2.0 - 13.0 % AO Workflow SS Neutrophils (Bld) [#/Vol] 2.4 103/mcL Normal 2.3 - 8.1 10^3/mcL AO Workflow SS Neutrophils/100 WBC (Bld) 60.6 % Normal 50.0 - 75.0 % AO Workflow SS Platelet mean volume (Bld) [Entitic vol] 9.1 fL Normal 6.6 - 10.5 fL AO Workflow SS Platelets (Bld) [#/Vol] 61 103/mcL Low 150 - 450 10^3/mcL AO Workflow SS Potassium [Moles/Vol] 4.1 mmol/L Normal 3.5 - 5.1 mmol/L AO ADM SS Protein [Mass/Vol] 8.0 G/dL Normal 6.4 - 8.2 G/dL AO ADM SS RBC (Bld) [#/Vol] 3.69 106/mcL Low 4.10 - 5.30 10^6/mcL AO Workflow SS Sodium [Moles/Vol] 141 mmol/L Normal 136 - 145 mmol/L AO ADM SS TSH Qn 0.96 m[IU]/L Normal 0.36 - 3.74 mcIU/mL AO ADM SS Urea nitrogen [Mass/Vol] 6 mg/dL Low 7 - 18 mg/dL AO ADM SS Urea nitrogen/Creatinine [Mass ratio] 8 ratio Normal 7 - 27 ratio AO ADM SS WBC (Bld) [#/Vol] 4.0 103/mcL Low 4.5 - 10.8 10^3/mcL AO Workflow SS LABORATORYOrdered By: Pat Diallo on 07-22-2024 Cholesterol [Mass/Vol] 185 mg/dL Normal 0 - 200 mg/dL AO ADM SS Comment on above: Interpretive Data: C holesterol Reference Interval: Less than 200 Desirable 200-239 Borderline high risk 240 and above High risk Cholesterol in HDL [Mass/Vol] 62 mg/dL High 40 - 60 mg/dL AO ADM SS Cholesterol in LDL [Mass/Vol] 105 mg/dL Normal 0 - 130 mg/dL AO ADM SS Triglyceride [Mass/Vol] 92 mg/dL Normal 0 - 150 mg/dL AO ADM SS Comment on above: Interpretive Data: T riglyceride Reference Interval: Less than 150 Normal 150-199 Borderline high risk 200-499 High risk 500 or higher Very high risk LIPIDon 07-22-2024 Cholesterol [Mass/Vol] 185 mg/dL Normal 0-200 [facility] Comment on above: Result Comment: Chol esterol Reference Interval: Less than 200 Desirable 200-239 Borderline high risk 240 and above High risk Performed By: #### C BC, ADIFF, GFR, PRO, CMP, ANEU #### [address] [address] Cholesterol in HDL [Mass/Vol] 62 mg/dL High 40-60 [facility] Comment on above: Performed By: #### C BC, ADIFF, GFR, PRO, CMP, ANEU #### [address] [address] Cholesterol in LDL [Mass/Vol] 105 mg/dL Normal 0-130 [facility] Comment on above: Performed By: #### C BC, ADIFF, GFR, PRO, CMP, ANEU #### [address] [address] Triglyceride [Mass/Vol] 92 mg/dL Normal 0-150 [facility] Comment on above: Result Comment: Trig lyceride Reference Interval: Less than 150 Normal 150-199 Borderline high risk 200-499 High risk 500 or higher Very high risk Performed By: #### C BC, ADIFF, GFR, PRO, CMP, ANEU #### [address] [address] TSHon 07-22-2024 TSH Qn 0.96 m[IU]/L Normal 0.36-3.74 [facility] Comment on above: Performed By: #### A KESHA, TSH, CMP, GFR, ADIFF, VIDH, FT4, LIPID, CBC #### [address] [address] VIDHon 07-22-2024 Vit. D 25-Hydroxy 30.0 ng/mL Normal [facility] Comment on above: Result Comment: Inte rpretive Values Based on Total 25(OH) Vitamin D: Deficient <20 ng/mL Insufficient 20 - <30 ng/mL Sufficient 30-100 ng/mL Performed By: #### A KESHA, TSH, CMP, GFR, ADIFF, VIDH, FT4, LIPID, CBC #### [place] [address] LABORATORYOrdered By: Adry metcalf on 06-15-2024 Glucose [Mass/Vol] 150 mg/dL High 70 - 110 mg/dL [facility] HbA1c (Bld) [Mass fraction] 5.6 % [facility] Performed By Adry Prieto PharmD [facility] Performing Location [facility] .SMUSTon 05-23-2024 Smooth Muscle Ab Titer Pos 20 Normal [facility] Comment on above: Result Comment: An A nti-smooth muscle antibody (ASMA) of 1:160 or greater is seen in approximately 80% of patients with HBSAG-neg Chronic Active Hepatitis (CAH). Low ASMA titers may be present in viral infections, malignancies and normal individuals. Performed By: #### C BC, ADIFF, GFR, PRO, CMP, ANEU #### [place] [address] AATon 05-23-2024 E-0-Vqhzpdxvnsr 197 mg/dL High 101-187 [facility] Comment on above: Result Comment: Perf ormed At: [facility] [address] [id number] Bakari Carl PhD Ph:[phone] Performed By: #### C BC, ADIFF, GFR, PRO, CMP, ANEU #### [place] [address] AHAVGon 05-23-2024 Hepatitis A Antibody IgG Negative Normal [facility] Comment on above: Result Comment: No s erological evidence of immunity to Hepatitis A Virus. Performed By: [facility] [address] [place] [address] 8Th Grade Mathematics Teacher: Allyson King IIIIA#: [id number] Performed By: #### C BC, ADIFF, GFR, PRO, CMP, ANEU #### [address] [address] HBCABon 05-23-2024 Hep B Core Total Ab Negative Normal Negative [facility] Comment on above: Result Comment: Perf ormed At: [facility] [address] [id number] Bakari Carl PhD Ph:[phone] Performed By: #### C BC, ADIFF, GFR, PRO, CMP, ANEU #### [address] [address] SMUSCon 05-23-2024 Smooth Muscle Ab See Titer Normal Neg 20 [facility] Comment on above: Result Comment: Smoo th Muscle Ab Screen and Titer methodology is an immunofluorescent technique utilizing MSK Substrate. Performed By: #### C BC, ADIFF, GFR, PRO, CMP, ANEU #### [address] [address] AFPSon 05-22-2024 AFP, Tumor Marker 2.2 ng/mL Normal 0.0-8.5 [facility] Comment on above: Result Comment: Test ing performed on the [employer] analyzer using direct chemiluminesent technology. Patient results determined by assays using different manufacturers for methods may not be comparable. Performed By: #### C BC, ADIFF, GFR, PRO, CMP, ANEU #### [address] [address] Cytology, Body Fluid / CSFon 05-22-2024 CYTOLOGY,BF/CSF SEE PATHOLOGY REPORT Normal [facility] Comment on above: Order Comment: URINE Result Comment: Spec imen submitted to Anatomical Pathology Department for testing. Performed By: #### L 350.1000 #### [facility] [address] [place], [place], [address] HBSABon 05-22-2024 Hep B Surf Ab <3.1 Low >=10.0 [facility] Comment on above: Result Comment: 0 to < 10.0 mIU/mL Nonreactive Patient is considered not to have protective immunity to HBV infection >/= 10.0 mIU/mL Reactive Patient is considered to have protective immunity to HBV infection. This assay is traceable to the World Health Organization (WHO) Hepatitis B Immunoglobulin 1st International Reference Preparation (1976). The accepted criteria for immunity to HBV is anti-HBs activity >/= 10.0 mIU/mL, as defined by the WHO International Reference Preparation. Performed By: #### C BC, ADIFF, GFR, PRO, CMP, [facility] #### [place] [address] LABORATORYOrdered By: SYSTEM SYSTEM on 05-22-2024 AFP [Mass/Vol] 2.2 ng/mL Normal 0.0 - 8.5 ng/mL ADM Comment on above: Interpretive Data: T esting performed on the [employer] analyzer using direct chemiluminesent technology. Patient results determined by assays using different manufacturers for methods may not be comparable. LABORATORYOrdered By: Nanci Garay on 05-22-2024 HBV surface Ab Qn (S) mIU/mL Low >=10.0mIU/ mL ADM Comment on above: Interpretive Data: 0 to < 10.0 mIU/mL Nonreactive Patient is considered not to have protective immunity to HBV infection >/= 10.0 mIU/mL Reactive Patient is considered to have protective immunity to HBV infection. This assay is traceable to the World Health Organization (WHO) Hepatitis B Immunoglobulin 1st International Reference Preparation (1976). The accepted criteria for immunity to HBV is anti-HBs activity >/= 10.0 mIU/mL, as defined by the WHO International Reference Preparation. Pap Stain (control)on 2023 Pap Stain (control) ------ Patient Age/Sex Location Account Attending Physician SONDRA DUVAL 58/F LABSPEC [id number] Traci Mcgill Specimen: [id number] Received: 05/22/24 Status: TABATHA Mathis Num: [id number] Spec Type: CYSPIN [place] Subm Dr: Traci Mcgill HEADER OPERATION: Not noted PRE-OP DIAGNOSIS: Gross hematuria TISSUE SUBMITTED: Urine for cytology DIAGNOSIS CYTOLOGY Urine for cytology (cytospins): Negative for high grade urothelial carcinoma , [facility] Category II. See comment. AM.mr 05/23/2024 COMMENT The specimen primarily consists of benign squamous epithelial cells and crystalline debris. The [facility] System for urine cytology diagnostic categorization was used in the evaluation of this case. Clinical correlation is suggested. CYTOLOGY STUDY Slides are reviewed. CYTOLOGY GROSS Received is 30 ml of hazy-george fluid labeled with the patient's name and and designated per the requisition as urine. Submitted for cytology preparation. Mr 05/23/2024 TC:5 CPT: 17936 Signed (signature on file) Dr. Benedict Friend DO 05/23/24 1415 Normal [facility] Comment on above: Performed By: #### P PAPS #### [facility] [address] [place], [address] No Panel Informationon 04-06 Culture Urine 10,000 - 50,000 cfu/ ml Mixed growth consistent with normal urogenital patrice. [facility] LABORATORYOrdered By: SYSTEM SYSTEM on 03-31-2024 Albumin BCP dye [Mass/Vol] 3.8 G/dL Normal 3.5 - 5.0 G/dL AO ADM SS Albumin/Globulin [Mass ratio] 0.9 {ratio} Low 1.1 - 2.5 ratio AO ADM SS ALP [Catalytic activity/Vol] 197 U/L High 40 - 135 U/L AO ADM SS ALT With P-5'-P [Catalytic activity/Vol] 42 U/L Normal 14 - 59 U/L AO ADM SS AST With P-5'-P [Catalytic activity/Vol] 69 U/L High 10 - 40 U/L AO ADM SS Bilirubin [Mass/Vol] 2.3 mg/dL High 0.2 - 1 .0 mg/dL AO ADM SS Comment on above: Interpretive Data: U se of this assay is not recommended for patients undergoing treatment with eltrombopag due to the potential for falsely elevated results. Bilirubin.direct [Mass/Vol] 0.8 mg/dL High 0.0 - 0.2 mg/dL AO ADM SS Comment on above: Interpretive Data: U se of this assay is not recommended for patients undergoing treatment with eltrombopag due to the potential for falsely elevated results. Bilirubin.direct [Mass/Vol] 1.5 mg/dL Invalid Interpretation Code AO Chemistry S Globulin 4.4 G/dL Invalid Interpretation Code AO ADM SS Lipase [Catalytic activity/Vol] 87 U/L High 16 - 77 U/L AO ADM SS Protein [Mass/Vol] 8.2 G/dL Normal 6.4 - 8.2 G/dL AO ADM SS Basophils (Bld) [#/Vol] 0.0 103/mcL Normal 0.0 - 0.2 10^3/mcL AO Workflow SS Basophils/100 WBC (Bld) 0.5 % Normal 0.0 - 2.5 % AO Workflow SS Calcium [Mass/Vol] 9.3 mg/dL Normal 8.4 - 10. 2 mg/dL AO ADM SS Chloride [Moles/Vol] 102 mmol/L Normal 98 - 10 7 mmol/L AO ADM SS CO2 [Moles/Vol] 19 mmol/L Low 22 - 29 mmol/L AO ADM SS Creatinine [Mass/Vol] 0.83 mg/dL Normal 0.55 - 1.02 mg/dL AO ADM SS Comment on above: Interpretive Data: T esting performed on Siemens Dimension EXL analyzer using a modified kinetic Tasneem technique. Electrolyte Balance 18.0 mEq/L High 4.0 - 15 .0 mEq/L AO ADM SS Eosinophil, Absolute 0.3 103/mcL Normal 0.0 - 0 .7 10^3/mcL AO Workflow SS Eosinophils/100 WBC (Bld) 5.3 % Normal 0.0 - 7.0 % AO Workflow SS Erythrocyte distribution width (RBC) [Ratio] 15.0 % Normal 11.5 - 15.5 % AO Workflow SS GFR/1.73 sq M.predicted among blacks MDRD (S/P/Bld) [Vol rate/Area] 86 ml/min/1.73sqm Invalid Interpretation Code AO Chemistry S Comment on above: Interpretive Data: GFR Population mean for , Non- Americans Ages 20-29 = 116 mL/min/1.73 sq.m. Ages 30-39 = 107 mL/min/1.73 sq.m. Ages 40-49 = 99 mL/min/1.73 sq.m. Ages 50-59 = 93 mL/min/1.73 sq.m. Ages 60-69 = 85 mL/min/1.73 sq.m. Ages 70+ = 75 mL/min/1.73 sq.m. Chronic Kidney Disease: Less than 60 mL/min/1.73 square meters End Stage Renal Disease: Less than 15 mL/min/1.73 square meters GFR/1.73 sq M.predicted among non-blacks MDRD (S/P/Bld) [Vol rate/Area] 71 ml/min/1.73sqm Invalid Interpretation Code AO Chemistry S Comment on above: Interpretive Data: GFR Population mean for , Non- Americans Ages 20-29 = 116 mL/min/1.73 sq.m. Ages 30-39 = 107 mL/min/1.73 sq.m. Ages 40-49 = 99 mL/min/1.73 sq.m. Ages 50-59 = 93 mL/min/1.73 sq.m. Ages 60-69 = 85 mL/min/1.73 sq.m. Ages 70+ = 75 mL/min/1.73 sq.m. Chronic Kidney Disease: Less than 60 mL/min/1.73 square meters End Stage Renal Disease: Less than 15 mL/min/1.73 square meters Glucose [Mass/Vol] 157 mg/dL High 70 - 105 mg/dL AO ADM SS Hematocrit (Bld) [Volume fraction] 36.7 % Normal 34.0 - 46.0 % AO Workflow SS Hemoglobin (Bld) [Mass/Vol] 12.5 G/dL Normal 12.0 - 16.0 G/dL AO Workflow SS Lymphocytes (Bld) [#/Vol] 0.8 103/mcL Low 0.9 - 4.3 10^3/mcL AO Workflow SS Lymphocytes/100 WBC (Bld) 15.7 % Low 20.0 - 40.0 % AO Workflow SS MCH (RBC) [Entitic mass] 35.4 pg High 27.0 - 33.0 pg AO Workflow SS MCHC 34.1 G/dL Normal 32.0 - 36.0 G/dL AO Workflow SS MCV (RBC) [Entitic vol] 103.9 fL High 80.0 - 99.0 fL AO Workflow SS Monocyte distribution width Auto (Bld) [Entitic vol] 18.93 1 Normal 0.00 - 20.00 AO Workflow SS Comment on above: Result Comment: For ED adult patients suspected of sepsis, MDW<=20.0 does not rule out sepsis or risk of sepsis Monocytes (Bld) [#/Vol] 0.3 103/mcL Normal 0.1 - 1.4 10^3/mcL AO Workflow SS Monocytes/100 WBC (Bld) 6.9 % Normal 2.0 - 13.0 % AO Workflow SS Neutrophils (Bld) [#/Vol] 3.6 103/mcL Normal 2.3 - 8.1 10^3/mcL AO Workflow SS Neutrophils/100 WBC (Bld) 71.6 % Normal 50.0 - 75.0 % AO Workflow SS Platelet mean volume (Bld) [Entitic vol] 8.3 fL Normal 6.6 - 10.5 fL AO Workflow SS Platelets (Bld) [#/Vol] 72 103/mcL Low 150 - 450 10^3/mcL AO Workflow SS Platelets LM Ql (Bld) Slt Decreased *NA* (03/31/24 3:11 PM) Invalid Interpretation Code AO Workflow SS Potassium [Moles/Vol] 4.1 mmol/L Normal 3.5 - 5.1 mmol/L AO ADM SS RBC (Bld) [#/Vol] 3.53 106/mcL Low 4.10 - 5.30 10^6/mcL AO Workflow SS Sodium [Moles/Vol] 139 mmol/L Normal 136 - 145 mmol/L AO ADM SS Urea nitrogen [Mass/Vol] 8 mg/dL Normal 7 - 18 mg/dL AO ADM SS Urea nitrogen/Creatinine [Mass ratio] 10 ratio Normal 7 - 27 ratio AO ADM SS WBC (Bld) [#/Vol] 5.0 103/mcL Normal 4.5 - 10.8 10^3/mcL AO Workflow SS LABORATORYOrdered By: Julio Armstrong on 03-31-2024 Appearance (U) Clear (03/31/24 2:31 PM) Normal Clear AO Auto Urine SS Bacteria LM.HPF (Urine sed) [#/Area] Trace /HPF Invalid Interpretation Code AO Auto Urine SS Bilirubin Ql (U) Small *ABN* (03/31/24 2:31 PM) Invalid Interpretation Code Negative AO Auto Urine SS Calcium oxalate crystals LM.HPF (Urine sed) [#/Area] 3 /[HPF] Normal AO Auto Uri ne SS Color (U) Yellow (03/31/24 2:31 PM) Normal AO Auto Urine SS Glucose Test strip (U) [Mass/Vol] Negative Normal Negative AO Auto Urine SS Hemoglobin Auto test strip (U) [Mass/Vol] Large *ABN* (03/31/24 2:31 PM) Invalid Interpretation Code Negative AO Auto Urine SS Ketones Ql (U) Trace mg/dL Invalid Interpretation Code Negative AO Auto Urine SS UA Leuk Est Negative (03/31/24 2:31 PM) Normal Negative AO Auto Urine SS UA Nitrite Negative (03/31/24 2:31 PM) Normal Negative AO Auto Urine SS UA pH 5.5 (03/31/24 2:31 PM) Normal 5.0 - 8.0 AO Auto Urine SS UA Protein 30 mg/dL Normal Negative AO Auto Urine SS UA RBC LOADED /HPF Invalid Interpretation Code None Seen AO Auto Urine SS UA Spec Grav >=1.030 *ABN* (03/31/24 2:31 PM) Invalid Interpretation Code 1.015-1.02 5 AO Auto Urine SS UA Specimen Type Clean Catch (03/31/24 2:31 PM) Normal AO Auto Urine SS UA Squam Epithelial LOADED /HPF Invalid Interpretation Code None Seen AO Auto Urine SS UA Urobilinogen 0.2 E.U./dL Normal 0.2-1.0 AO Auto Urine SS WBC LM.HPF (Urine sed) [#/Area] None Seen /HPF Normal None Seen AO Auto Urine SS MRI LIVER WO IVCONon 024 MRI LIVER WO IVCON * * *Final Report* * * DATE OF EXAM: Mar 08 2024 9:10AM [facility] 0726 - MRI LIVER WO IVCON / PROCEDURE REASON: k76.89 * * * * Physician Interpretation * * * * MRI OF THE ABDOMEN (LIVER) WITHOUT IV CONTRAST HISTORY: Nodular hyperplasia liver. Non-diagnostic elastography. TECHNIQUE: Magnet: 1.5T scanner. Multiplanar MRI of the abdomen with multiple sequences, performed without intravenous contrast as per clinical request/protocol. Contrast: IV: None COMPARISON: None. RESULT: Liver: Cirrhotic liver morphology. Lesions: Subcentimeter right hepatic cyst. No solid lesions detected with noncontrast technique. Biliary: No bile duct dilation. Cholelithiasis within otherwise normal gallbladder. Spleen: 19 cm (craniocaudally), enlarged. No mass. Pancreas: No mass or duct dilation. Adrenals: No mass. Kidneys: No solid or cystic mass. No hydronephrosis. Few subcentimeter T2 hyperintense benign cyst both kidneys, largest measures 8 mm upper pole right kidney [3:14]. GI tract: No dilation or wall thickening. Lymph nodes: 1.5 cm precaval lymph node, nonspecific. Mesentery/Peritoneum: Minimal fluid in perihepatic location. . No mass. Vasculature: Large splenorenal shunt with collaterals. Few esophageal and mesenteric collaterals. Bones/Soft Tissues: No significant finding. Lower thorax: Unremarkable. IMPRESSION: Cirrhosis with sequelae of portal hypertension. No hepatic lesion identified by noncontrast imaging. Note that contrast-enhanced MR is advised for surveillance imaging of patients with chronic liver disease. 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 Performed By: #### C BC, FES, ANEU, CMP, GFR, FERR, ADIFF #### [place] [id number] MITOon 12-03-2023 Mitochondrial Ab Neg 20 Normal Neg 20 [facility] ([place]) Comment on above: Result Comment: Juan M chondrial Ab Screen and Titer methodology is an immunofluorescent technique utilizing MSK Substrate. Performed By: #### C BC, FES, ANEU, CMP, GFR, FERR, ADIFF #### [address] [address] .Auto Diffon 12-02-2023 Basophil, Absolute 0.0 10 3/mcL Normal 0.0-0.2 [facility] ([place]) Comment on above: Performed By: #### C BC, FES, ANEU, CMP, GFR, FERR, ADIFF #### [place] [id number] Basophils/100 WBC (Bld) 0.6 % Normal 0.0-2.5 [facility] ([place]) Comment on above: Performed By: #### C BC, FES, ANEU, CMP, GFR, FERR, ADIFF #### [address] [address] Eosinophil, Absolute 0.2 10 3/mcL Normal 0.0-0.4 [facility] ([place]) Comment on above: Performed By: #### C BC, FES, ANEU, CMP, GFR, FERR, ADIFF #### [address] [address] Eosinophils/100 WBC (Bld) 5.1 % Normal 0.0-7.0 [facility] ([place]) Comment on above: Performed By: #### C BC, FES, ANEU, CMP, GFR, FERR, ADIFF #### [address] [address] Lymphocyte, Absolute 1.1 10 3/mcL Normal 0.8-3.9 [facility] ([place]) Comment on above: Performed By: #### C BC, FES, ANEU, CMP, GFR, FERR, ADIFF #### [address] [address] Lymphocytes/100 WBC (Bld) 24.1 % Normal 10.0-50.0 [facility] ([place]) Comment on above: Performed By: #### C BC, FES, ANEU, CMP, GFR, FERR, ADIFF #### [address] [address] Monocyte, Absolute 0.4 10 3/mcL Normal 0.2-1.0 [facility] ([place]) Comment on above: Performed By: #### C BC, FES, ANEU, CMP, GFR, FERR, ADIFF #### [address] [address] Monocytes/100 WBC (Bld) 8.4 % Normal 1.7-13.0 [facility] ([place]) Comment on above: Performed By: #### C BC, FES, ANEU, CMP, GFR, FERR, ADIFF #### [address] [address] Neutrophils/100 WBC (Bld) 61.8 % Normal 37.0-80.0 [facility] ([place]) Comment on above: Performed By: #### C BC, FES, ANEU, CMP, GFR, FERR, ADIFF #### [address] [address] .GFRon 12-02-2023 GFR 106 ml/min/1.73sqm Normal [facility] ([place]) Comment on above: Result Comment: GFR Population mean for , [...] 15 mL/min/1.73 square meters Performed By: #### C BC, FES, ANEU, CMP, GFR, FERR, ADIFF #### [address] [address] GFR Non- 87 ml/min/1.73sqm Normal [facility] ([place]) Comment on above: Result Comment: GFR Population mean for , [...] 15 mL/min/1.73 square meters Performed By: #### C BC, FES, ANEU, CMP, GFR, FERR, ADIFF #### [place] [address] .NEUABSon 12-02-2023 Neutrophil, Absolute 2.7 10 3/mcL Low 2.9-6.2 [facility] ([place]) Comment on above: Performed By: #### C BC, FES, ANEU, CMP, GFR, FERR, ADIFF #### [place] [address] CBCon 12-02-2023 Erythrocyte distribution width (RBC) [Ratio] 14.7 % High 11.5-14.5 [facility] ([place]) Comment on above: Performed By: #### C BC, FES, ANEU, CMP, GFR, FERR, ADIFF #### [place] [address] Hematocrit (Bld) [Volume fraction] 37.3 % Normal 37.0-47.0 [facility] ([place]) Comment on above: Performed By: #### C BC, FES, ANEU, CMP, GFR, FERR, ADIFF #### [place] [address] Hgb 12.9 G/dL Normal 12.0-16.0 [facility] ([place]) Comment on above: Performed By: #### C BC, FES, ANEU, CMP, GFR, FERR, ADIFF #### [place] [address] MCH (RBC) [Entitic mass] 34.8 pg High 27.0-31.2 [facility] ([place]) Comment on above: Performed By: #### C BC, FES, ANEU, CMP, GFR, FERR, ADIFF #### [place] [address] MCHC 34.5 G/dL Normal 33.0-37.0 [facility] ([place]) Comment on above: Performed By: #### C BC, FES, ANEU, CMP, GFR, FERR, ADIFF #### [address] [place] [address] MCV (RBC) [Entitic vol] 100.7 fL High 80.0-94.0 [facility] ([place]) Comment on above: Performed By: #### C BC, FES, ANEU, CMP, GFR, FERR, ADIFF #### [address] [address] Platelet 84 10 3/mcL Low 130-400 Replaced by [facility] ([place]) Comment on above: Performed By: #### C BC, FES, ANEU, CMP, GFR, FERR, ADIFF #### [address] [address] Platelet mean volume (Bld) [Entitic vol] 9.2 fL Normal 7.4-10.4 [facility] ([place]) Comment on above: Performed By: #### C BC, FES, ANEU, CMP, GFR, FERR, ADIFF #### [address] [address] RBC 3.70 10 6/mcL Low 4.20-5.40 [facility] ([place]) Comment on above: Performed By: #### C BC, FES, ANEU, CMP, GFR, FERR, ADIFF #### [address] [address] WBC 4.4 10 3/mcL Low 4.6-10.8 [facility] ([place]) Comment on above: Performed By: #### C BC, FES, ANEU, CMP, GFR, FERR, ADIFF #### [address] [address] CMPon 12-02-2023 Albumin Level 3.5 G/dL Normal 3.5-5.0 [facility] ([place]) Comment on above: Performed By: #### C BC, FES, ANEU, CMP, GFR, FERR, ADIFF #### [address] [address] Albumin/Globulin [Mass ratio] 0.8 {ratio} Low 1.1-2.5 [facility] ([place]) Comment on above: Performed By: #### C BC, FES, ANEU, CMP, GFR, FERR, ADIFF #### [address] [address] ALP [Catalytic activity/Vol] 210 U/L High 40-135 [facility] ([place]) Comment on above: Performed By: #### C BC, FES, ANEU, CMP, GFR, FERR, ADIFF #### [address] [address] ALT [Catalytic activity/Vol] 35 U/L Normal 14-59 [facility] ([place]) Comment on above: Performed By: #### C BC, FES, ANEU, CMP, GFR, FERR, ADIFF #### [address] [address] AST [Catalytic activity/Vol] 61 U/L High 10-40 [facility] ([place]) Comment on above: Performed By: #### C BC, FES, ANEU, CMP, GFR, FERR, ADIFF #### [address] [address] Bili Total 2.0 mg/dL High 0.2-1.0 [facility] ([place]) Comment on above: Result Comment: Use of this assay is not recommended for patients undergoing treatment with eltrombopag due to the potential for falsely elevated results. Performed By: #### C BC, FES, ANEU, CMP, GFR, FERR, ADIFF #### [address] [address] BUN/Creatinine Ratio 12 ratio Normal 7-27 [facility] ([place]) Comment on above: Performed By: #### C BC, FES, ANEU, CMP, GFR, FERR, ADIFF #### [address] [address] Calcium [Mass/Vol] 8.8 mg/dL Normal 8.4-10.2 [facility] ([place]) Comment on above: Performed By: #### C BC, FES, ANEU, CMP, GFR, FERR, ADIFF #### [address] [address] Chloride [Moles/Vol] 104 mmol/L Normal 98-107 [facility] ([place]) Comment on above: Performed By: #### C BC, FES, ANEU, CMP, GFR, FERR, ADIFF #### [address] [address] CO2 [Moles/Vol] 24 mmol/L Normal 22-29 [facility] ([place]) Comment on above: Performed By: #### C BC, FES, ANEU, CMP, GFR, FERR, ADIFF #### [address] [address] Creatinine [Mass/Vol] 0.69 mg/dL Normal 0.55-1.02 [facility] ([place]) Comment on above: Performed By: #### C BC, FES, ANEU, CMP, GFR, FERR, ADIFF #### [address] [address] Electrolyte Balance 13.0 mEq/L Normal 4.0-15.0 [facility] ([place]) Comment on above: Performed By: #### C BC, FES, ANEU, CMP, GFR, FERR, ADIFF #### [address] [address] Globulin 4.5 G/dL Normal [facility] ([place]) Comment on above: Performed By: #### C BC, FES, ANEU, CMP, GFR, FERR, ADIFF #### [address] [address] Glucose [Mass/Vol] 146 mg/dL High 70-105 [facility] ([place]) Comment on above: Performed By: #### C BC, FES, ANEU, CMP, GFR, FERR, ADIFF #### [address] [address] Potassium [Moles/Vol] 3.9 mmol/L Normal 3.5-5.1 [facility] ([place]) Comment on above: Performed By: #### C BC, FES, ANEU, CMP, GFR, FERR, ADIFF #### [address] [address] Sodium [Moles/Vol] 141 mmol/L Normal 136-145 [facility] ([place]) Comment on above: Performed By: #### C BC, FES, ANEU, CMP, GFR, FERR, ADIFF #### [address] [address] Total Protein 8.0 G/dL Normal 6.4-8.2 [facility] ([place]) Comment on above: Performed By: #### C BC, FES, ANEU, CMP, GFR, FERR, ADIFF #### [address] [address] Urea nitrogen [Mass/Vol] 8 mg/dL Normal 7-18 [facility] ([place]) Comment on above: Performed By: #### C BC, FES, ANEU, CMP, GFR, FERR, ADIFF #### [address] [address] Christopher 12-02-2023 Ferritin [Mass/Vol] 106.0 ng/mL Normal 8.0-252.0 [facility] ([place]) Comment on above: Performed By: #### C MP, GFR, ANEU, FES, FERR, ADIFF, CBC ####[place] [address] FESon 12-02-2023 Iron [Mass/Vol] 109 ug/dL Normal 50-170 [facility] ([place]) Comment on above: Performed By: #### C MP, GFR, ANEU, FES, FERR, ADIFF, CBC ####[address] [address] Iron Sat 31 % Normal [facility] ([place]) Comment on above: Performed By: #### C MP, GFR, ANEU, FES, FERR, ADIFF, CBC ####[address] [address] TIBC 353 mcg/dL Normal 250-450 [facility] ([place]) Comment on above: Performed By: #### C MP, GFR, ANEU, FES, FERR, ADIFF, CBC ####[place] [address] GGTon 12-02-2023 Gamma GT 108 U/L High 5-55 [facility] ([place]) Comment on above: Performed By: #### C BC, FES, ANEU, CMP, GFR, FERR, ADIFF #### [address] [address] HBSAGon 12-02-2023 Hep B Surf Ag Non-Reactive Normal Non-Reacti [facility] ([place]) Comment on above: Performed By: #### C BC, FES, ANEU, CMP, GFR, FERR, ADIFF #### [address] [address] HCVon 12-02-2023 Hep C Ab Non-Reactive Normal Non-Reacti [facility] ([place]) Comment on above: Performed By: #### C BC, FES, ANEU, CMP, GFR, FERR, ADIFF #### [place] [id number] Hep C Ab Int Normal [facility] ([place]) Comment on above: Result Comment: Nonr eactive: Samples with a value < 0.80 are considered nonreactive (negative) for antibodies to HCV. A negative test result does not exclude the possibility of exposure to or infection with HCV. HCV antibodies may be undetectable in some stages of the infection and in some clinical conditions. See Interp Performed By: #### C BC, FES, ANEU, CMP, GFR, FERR, ADIFF #### [address] [address] HFPon 12-02-2023 Bili Indirect 1.4 mg/dL Normal [facility] ([place]) Comment on above: Performed By: #### C BC, FES, ANEU, CMP, GFR, FERR, ADIFF #### [address] [address] Albumin Level 3.5 G/dL Normal 3.5-5.0 [facility] ([place]) Comment on above: Performed By: #### C BC, FES, ANEU, CMP, GFR, FERR, ADIFF #### [address] [address] Albumin/Globulin [Mass ratio] 0.8 {ratio} Low 1.1-2.5 [facility] ([place]) Comment on above: Performed By: #### C BC, FES, ANEU, CMP, GFR, FERR, ADIFF #### [address] [address] ALP [Catalytic activity/Vol] 210 U/L High 40-135 [facility] ([place]) Comment on above: Performed By: #### C BC, FES, ANEU, CMP, GFR, FERR, ADIFF #### [address] [address] ALT [Catalytic activity/Vol] 36 U/L Normal 14-59 [facility] ([place]) Comment on above: Performed By: #### C BC, FES, ANEU, CMP, GFR, FERR, ADIFF #### [address] [address] AST [Catalytic activity/Vol] 61 U/L High 10-40 [facility] ([place]) Comment on above: Performed By: #### C BC, FES, ANEU, CMP, GFR, FERR, ADIFF #### [address] [address] Bili Direct 0.6 mg/dL High 0.0-0.2 Replaced by [facility] ([place]) Comment on above: Result Comment: Use of this assay is not recommended for patients undergoing treatment with eltrombopag due to the potential for falsely elevated results. Performed By: #### C BC, FES, ANEU, CMP, GFR, FERR, ADIFF #### [address] [address] Bili Total 2.0 mg/dL High 0.2-1.0 [facility] ([place]) Comment on above: Result Comment: Use of this assay is not recommended for patients undergoing treatment with eltrombopag due to the potential for falsely elevated results. Performed By: #### C BC, FES, ANEU, CMP, GFR, FERR, ADIFF #### [address] [address] Globulin 4.5 G/dL Normal [facility] ([place]) Comment on above: Performed By: #### C BC, FES, ANEU, CMP, GFR, FERR, ADIFF #### [place] [id number] [place], [place] [address] Total Protein 8.0 G/dL Normal 6.4-8.2 [facility] ([place]) Comment on above: Performed By: #### C BC, FES, ANEU, CMP, GFR, FERR, ADIFF #### [place] [id number] [place], [place] [address] LABORATORYOrdered By: SYSTEM SYSTEM on 12-02-2023 Albumin BCP dye [Mass/Vol] 3.5 G/dL Normal 3.5 - 5.0 G/dL AO ADM SS Albumin/Globulin [Mass ratio] 0.8 {ratio} Low 1.1 - 2.5 ratio AO ADM SS ALP [Catalytic activity/Vol] 210 U/L High 40 - 135 U/L AO ADM SS ALT With P-5'-P [Catalytic activity/Vol] 36 U/L Normal 14 - 59 U/L AO ADM SS AST With P-5'-P [Catalytic activity/Vol] 61 U/L High 10 - 40 U/L AO ADM SS Bilirubin [Mass/Vol] 2.0 mg/dL High 0.2 - 1 .0 mg/dL AO ADM SS Comment on above: Interpretive Data: U se of this assay is not recommended for patients undergoing treatment with eltrombopag due to the potential for falsely elevated results. Bilirubin.direct [Mass/Vol] 1.4 mg/dL Invalid Interpretation Code AO Chemistry S Bilirubin.direct [Mass/Vol] 0.6 mg/dL High 0.0 - 0.2 mg/dL AO ADM SS Comment on above: Interpretive Data: U se of this assay is not recommended for patients undergoing treatment with eltrombopag due to the potential for falsely elevated results. Gamma glutamyl transferase [Catalytic activity/Vol] 108 U/L High 5 - 55 U/L AH ADM SS Globulin 4.5 G/dL Invalid Interpretation Code AO ADM SS HBV surface Ag IA Ql Non-Reactive (12/02/23 7:43 AM) Normal Non-Reacti ve AH ADM SS Protein [Mass/Vol] 8.0 G/dL Normal 6.4 - 8.2 G/dL AO ADM SS Albumin BCP dye [Mass/Vol] 3.5 G/dL Normal 3.5 - 5.0 G/dL AO ADM SS Albumin/Globulin [Mass ratio] 0.8 {ratio} Low 1.1 - 2.5 ratio AO ADM SS ALP [Catalytic activity/Vol] 210 U/L High 40 - 135 U/L AO ADM SS ALT With P-5'-P [Catalytic activity/Vol] 35 U/L Normal 14 - 59 U/L AO ADM SS AST With P-5'-P [Catalytic activity/Vol] 61 U/L High 10 - 40 U/L AO ADM SS Basophil, Absolute 0.0 103/mcL Normal 0.0 - 0.2 10^3/mcL AO Workflow SS Basophils/100 WBC (Bld) 0.6 % Normal 0.0 - 2.5 % AO Workflow SS Bilirubin [Mass/Vol] 2.0 mg/dL High 0.2 - 1 .0 mg/dL AO ADM SS Comment on above: Interpretive Data: U se of this assay is not recommended for patients undergoing treatment with eltrombopag due to the potential for falsely elevated results. Calcium [Mass/Vol] 8.8 mg/dL Normal 8.4 - 10. 2 mg/dL AO ADM SS Chloride [Moles/Vol] 104 mmol/L Normal 98 - 10 7 mmol/L AO ADM SS CO2 [Moles/Vol] 24 mmol/L Normal 22 - 29 mmol/L AO ADM SS Creatinine [Mass/Vol] 0.69 mg/dL Normal 0.55 - 1.02 mg/dL AO ADM SS Electrolyte Balance 13.0 mEq/L Normal 4.0 - 15 .0 mEq/L AO ADM SS Eosinophil, Absolute 0.2 103/mcL Normal 0.0 - 0 .4 10^3/mcL AO Workflow SS Eosinophils/100 WBC (Bld) 5.1 % Normal 0.0 - 7.0 % AO Workflow SS Erythrocyte distribution width (RBC) [Ratio] 14.7 % High 11.5 - 14.5 % AO Workflow SS Ferritin [Mass/Vol] 106.0 ng/mL Normal 8.0 - 252.0 ng/mL AO ADM SS GFR/1.73 sq M.predicted among blacks MDRD (S/P/Bld) [Vol rate/Area] 106 ml/min/1.73sqm Invalid Interpretation Code AO Chemistry S Comment on above: Interpretive Data: GFR Population mean for , Non- Americans Ages 20-29 = 116 mL/min/1.73 sq.m. Ages 30-39 = 107 mL/min/1.73 sq.m. Ages 40-49 = 99 mL/min/1.73 sq.m. Ages 50-59 = 93 mL/min/1.73 sq.m. Ages 60-69 = 85 mL/min/1.73 sq.m. Ages 70+ = 75 mL/min/1.73 sq.m. Chronic Kidney Disease: Less than 60 mL/min/1.73 square meters End Stage Renal Disease: Less than 15 mL/min/1.73 square meters GFR/1.73 sq M.predicted among non-blacks MDRD (S/P/Bld) [Vol rate/Area] 87 ml/min/1.73sqm Invalid Interpretation Code AO Chemistry S Comment on above: Interpretive Data: GFR Population mean for , Non- Americans Ages 20-29 = 116 mL/min/1.73 sq.m. Ages 30-39 = 107 mL/min/1.73 sq.m. Ages 40-49 = 99 mL/min/1.73 sq.m. Ages 50-59 = 93 mL/min/1.73 sq.m. Ages 60-69 = 85 mL/min/1.73 sq.m. Ages 70+ = 75 mL/min/1.73 sq.m. Chronic Kidney Disease: Less than 60 mL/min/1.73 square meters End Stage Renal Disease: Less than 15 mL/min/1.73 square meters Globulin 4.5 G/dL Invalid Interpretation Code AO ADM SS Glucose [Mass/Vol] 146 mg/dL High 70 - 105 mg/dL AO ADM SS Hematocrit (Bld) [Volume fraction] 37.3 % Normal 37.0 - 47.0 % AO Workflow SS Hemoglobin (Bld) [Mass/Vol] 12.9 G/dL Normal 12.0 - 16.0 G/dL AO Workflow SS Iron [Mass/Vol] 109 ug/dL Normal 50 - 170 mcg/dL AO ADM SS Iron binding capacity [Mass/Vol] 353 mcg/dL Normal 250 - 450 mcg/dL AO ADM SS Iron Sat 31 % Invalid Interpretation Code AO ADM SS Lymphocyte, Absolute 1.1 103/mcL Normal 0.8 - 3 .9 10^3/mcL AO Workflow SS Lymphocytes/100 WBC (Bld) 24.1 % Normal 10.0 - 50.0 % AO Workflow SS MCH (RBC) [Entitic mass] 34.8 pg High 27.0 - 31.2 pg AO Workflow SS MCHC 34.5 G/dL Normal 33.0 - 37.0 G/dL AO Workflow SS MCV (RBC) [Entitic vol] 100.7 fL High 80.0 - 94.0 fL AO Workflow SS Monocyte, Absolute 0.4 103/mcL Normal 0.2 - 1.0 10^3/mcL AO Workflow SS Monocytes/100 WBC (Bld) 8.4 % Normal 1.7 - 13.0 % AO Workflow SS Neutrophil, Absolute 2.7 103/mcL Low 2.9 - 6 .2 10^3/mcL AO Workflow SS Neutrophils/100 WBC (Bld) 61.8 % Normal 37.0 - 80.0 % AO Workflow SS Platelet mean volume (Bld) [Entitic vol] 9.2 fL Normal 7.4 - 10.4 fL AO Workflow SS Platelets (Bld) [#/Vol] 84 103/mcL Low 130 - 400 10^3/mcL AO Workflow SS Potassium [Moles/Vol] 3.9 mmol/L Normal 3.5 - 5.1 mmol/L AO ADM SS Protein [Mass/Vol] 8.0 G/dL Normal 6.4 - 8.2 G/dL AO ADM SS RBC (Bld) [#/Vol] 3.70 106/mcL Low 4.20 - 5.40 10^6/mcL AO Workflow SS Sodium [Moles/Vol] 141 mmol/L Normal 136 - 145 mmol/L AO ADM SS Urea nitrogen [Mass/Vol] 8 mg/dL Normal 7 - 18 mg/dL AO ADM SS Urea nitrogen/Creatinine [Mass ratio] 12 ratio Normal 7 - 27 ratio AO ADM SS WBC (Bld) [#/Vol] 4.4 103/mcL Low 4.6 - 10.8 10^3/mcL AO Workflow SS LABORATORYOrdered By: Ronak Cox on 12-02-2023 HCV Ab IA Ql Non-Reactive (12/02/23 7:43 AM) Normal Non-Reacti ve AH ADM SS HCV Ab IA Ql Nonreactive: Samples with a value < 0.80 are considered nonreactive (negative) for antibodies to HCV.A negative test result does not exclude the possibility of exposure to or infection with HCV. HCV antibodies may be undetectable in some stages of the infection and in some clinical conditions. Invalid Interpretation Code CONRAD GundersonGFRon 11-12-2023 GFR 104 ml/min/1.73sqm Normal [facility] ([place]) Comment on above: Result Comment: GFR Population mean for , [...] 15 mL/min/1.73 square meters Performed By: #### C BC, FES, ANEU, CMP, GFR, FERR, ADIFF #### [place] [id number] GFR Non- 86 ml/min/1.73sqm Normal [facility] ([place]) Comment on above: Result Comment: GFR Population mean for , [...] 15 mL/min/1.73 square meters Performed By: #### C BC, FES, ANEU, CMP, GFR, FERR, ADIFF #### [address] [address] BMPon 11-12-2023 BUN/Creatinine Ratio 14 ratio Normal 7-27 [facility] ([place]) Comment on above: Performed By: #### C BC, FES, ANEU, CMP, GFR, FERR, ADIFF #### [address] [address] Calcium [Mass/Vol] 9.0 mg/dL Normal 8.4-10.2 [facility] ([place]) Comment on above: Performed By: #### C BC, FES, ANEU, CMP, GFR, FERR, ADIFF #### [address] [address] Chloride [Moles/Vol] 104 mmol/L Normal 98-107 [facility] ([place]) Comment on above: Performed By: #### C BC, FES, ANEU, CMP, GFR, FERR, ADIFF #### [address] [address] CO2 [Moles/Vol] 26 mmol/L Normal 22-29 [facility] ([place]) Comment on above: Performed By: #### C BC, FES, ANEU, CMP, GFR, FERR, ADIFF #### [place] [address] Creatinine [Mass/Vol] 0.70 mg/dL Normal 0.55-1.02 [facility] ([place]) Comment on above: Performed By: #### C BC, FES, ANEU, CMP, GFR, FERR, ADIFF #### [address] [address] Electrolyte Balance 9.0 mEq/L Normal 4.0-15.0 [facility] ([place]) Comment on above: Performed By: #### C BC, FES, ANEU, CMP, GFR, FERR, ADIFF #### [address] [address] Glucose [Mass/Vol] 152 mg/dL High 70-105 [facility] ([place]) Comment on above: Performed By: #### C BC, FES, ANEU, CMP, GFR, FERR, ADIFF #### [place] [address] Potassium [Moles/Vol] 3.8 mmol/L Normal 3.5-5.1 [facility] ([place]) Comment on above: Performed By: #### C BC, FES, ANEU, CMP, GFR, FERR, ADIFF #### [address] [address] Sodium [Moles/Vol] 139 mmol/L Normal 136-145 [facility] ([place]) Comment on above: Performed By: #### C BC, FES, ANEU, CMP, GFR, FERR, ADIFF #### [address] [address] Urea nitrogen [Mass/Vol] 10 mg/dL Normal 7-18 [facility] ([place]) Comment on above: Performed By: #### C BC, FES, ANEU, CMP, GFR, FERR, ADIFF #### [address] [address] LIPIDon 11-12-2023 Cholesterol [Mass/Vol] 235 mg/dL High 0-200 [facility] ([place]) Comment on above: Result Comment: Chol esterol Reference Interval: Less than 200 Desirable 200-239 Borderline high risk 240 and above High risk Performed By: #### C BC, FES, ANEU, CMP, GFR, FERR, ADIFF #### [address] [address] Cholesterol in HDL [Mass/Vol] 53 mg/dL Normal 40-60 [facility] ([place]) Comment on above: Performed By: #### C BC, FES, ANEU, CMP, GFR, FERR, ADIFF #### [address] [address] Cholesterol in LDL [Mass/Vol] 158 mg/dL High 0-130 [facility] ([place]) Comment on above: Performed By: #### C BC, FES, ANEU, CMP, GFR, FERR, ADIFF #### [address] [address] Triglyceride [Mass/Vol] 118 mg/dL Normal 0-150 [facility] ([place]) Comment on above: Result Comment: Trig lyceride Reference Interval: Less than 150 Normal 150-199 Borderline high risk 200-499 High risk 500 or higher Very high risk Performed By: #### C BC, FES, ANEU, CMP, GFR, FERR, ADIFF #### [place] [id number] [place] [address] MA MAMMOGRAM SCREENING BILAT ERAL W/TOMOon 11-09-2023 MA MAMMOGRAM SCREENING BILATERAL W/CLARK ORIGINAL FROM: [place] [address] PROCEDURE FOR: SONDRA DUVAL [address] [place] [address] Home: PID#: [id number] Exam#: [id number] : 1965 Age: 58 TO: ROSARIOLUIS WALTERS [facility] [address] [place] [address] Fax: NO FAX EXAMINATION: SCREENING DIGITAL BILATERAL MAMMOGRAM WITH TOMOSYNTHESIS, 11/09/2023 7:09 am TECHNIQUE: Screening mammography of the bilateral breasts was performed with tomosynthesis. 2D standard and 3D tomosynthesis combination imaging performed through both breasts in the MLO and CC projection. Computer aided detection was utilized in the interpretation of this exam. COMPARISON: Screening mammogram 05/24/2019 HISTORY: Breast cancer screening FINDINGS: BREAST DENSITY: Scattered fibroglandular tissue There are no significant masses or calcifications. IMPRESSION: No mammographic evidence of malignancy. Continued screening with annual mammograms is recommended. Flower Hajizick risk calculations, generated with the history provided, report this patient's 10 year risk and lifetime risk for developing breast cancer at 4.5% and 12.2%, respectively. Based on this assessment tool, if the patient's calculated lifetime risk is below 20%, then the patient is considered at average risk for developing breast cancer. If the patient's calculated lifetime risk is at or above 20%, then the patient is considered high risk for developing breast cancer and may be a candidate for supplemental breast MRI screening in addition to annual mammographic screening per the [place] [employer]. I have personally reviewed the images of this examination and agree with the resident's findings and interpretation. BIRADS: MAMMOGRAM BI-RADS: 1: Negative RECALL: 1 year screening RECALL TYPE: mammo LETTER SENT: Normal BI-RADS 1 and 2 Interpreted by: Harvinder Ruiz MD Preliminary Report By: Debra Hall Electronically signed By Harvinder Ruiz MD Dictated Date: 11/09/2023 8:15:35 AM Prelim Date: 11/09/2023 11:42:22 AM Sign Date: 11/09/2023 11:42:22 AM Ordering Provider: ROSARIO WALTERS Analysis Director: EZEKIEL KARIMI RT(R)(M)(CT) STYLIST APPRENTICE letter sent: Normal BI-RADS 1 and 2 Mammogram BI-RADS: 1 Negative Normal [facility] ([place]) .Auto Diffon 09-13-2023 Basophil, Absolute 0.0 10 3/mcL Normal 0.0-0.2 [facility] ([place]) Comment on above: Performed By: #### C BC, FES, ANEU, CMP, GFR, FERR, ADIFF #### [address] [address] Basophils/100 WBC (Bld) 0.4 % Normal 0.0-2.5 [facility] ([place]) Comment on above: Performed By: #### C BC, FES, ANEU, CMP, GFR, FERR, ADIFF #### [address] [address] Eosinophil, Absolute 0.3 10 3/mcL Normal 0.0-0.4 [facility] ([place]) Comment on above: Performed By: #### C BC, FES, ANEU, CMP, GFR, FERR, ADIFF #### [address] [address] Eosinophils/100 WBC (Bld) 5.9 % Normal 0.0-7.0 [facility] ([place]) Comment on above: Performed By: #### C BC, FES, ANEU, CMP, GFR, FERR, ADIFF #### [address] [address] Lymphocyte, Absolute 1.2 10 3/mcL Normal 0.8-3.9 [facility] ([place]) Comment on above: Performed By: #### C BC, FES, ANEU, CMP, GFR, FERR, ADIFF #### [address] [address] Lymphocytes/100 WBC (Bld) 27.1 % Normal 10.0-50.0 [facility] ([place]) Comment on above: Performed By: #### C BC, FES, ANEU, CMP, GFR, FERR, ADIFF #### [address] [address] Monocyte, Absolute 0.5 10 3/mcL Normal 0.2-1.0 [facility] ([place]) Comment on above: Performed By: #### C BC, FES, ANEU, CMP, GFR, FERR, ADIFF #### [address] [address] Monocytes/100 WBC (Bld) 10.1 % Normal 1.7-13.0 [facility] ([place]) Comment on above: Performed By: #### C BC, FES, ANEU, CMP, GFR, FERR, ADIFF #### [address] [address] Neutrophils/100 WBC (Bld) 56.5 % Normal 37.0-80.0 [facility] ([place]) Comment on above: Performed By: #### C BC, FES, ANEU, CMP, GFR, FERR, ADIFF #### [address] [address] .GFRon 09-13-2023 GFR 132 ml/min/1.73sqm Normal [facility] ([place]) Comment on above: Result Comment: GFR Population mean for , [...] 15 mL/min/1.73 square meters Performed By: #### C BC, FES, ANEU, CMP, GFR, FERR, ADIFF #### [address] [address] GFR Non- 109 ml/min/1.73sqm Normal Replaced by [facility] ([place]) Comment on above: Result Comment: GFR Population mean for , [...] 15 mL/min/1.73 square meters Performed By: #### C BC, FES, ANEU, CMP, GFR, FERR, ADIFF #### [address] [address] .NEUABSon 09-13-2023 Neutrophil, Absolute 2.5 10 3/mcL Low 2.9-6.2 [facility] ([place]) Comment on above: Performed By: #### C BC, FES, ANEU, CMP, GFR, FERR, ADIFF #### [address] [address] CBCon 09-13-2023 Erythrocyte distribution width (RBC) [Ratio] 15.9 % High 11.5-14.5 [facility] ([place]) Comment on above: Performed By: #### C BC, FES, ANEU, CMP, GFR, FERR, ADIFF #### [address] [address] Hematocrit (Bld) [Volume fraction] 36.6 % Low 37.0-47.0 [facility] ([place]) Comment on above: Performed By: #### C BC, FES, ANEU, CMP, GFR, FERR, ADIFF #### [address] [address] Hgb 12.8 G/dL Normal 12.0-16.0 [facility] ([place]) Comment on above: Performed By: #### C BC, FES, ANEU, CMP, GFR, FERR, ADIFF #### [address] [address] MCH (RBC) [Entitic mass] 34.0 pg High 27.0-31.2 [facility] ([place]) Comment on above: Performed By: #### C BC, FES, ANEU, CMP, GFR, FERR, ADIFF #### [place] [address] MCHC 35.0 G/dL Normal 33.0-37.0 [facility] ([place]) Comment on above: Performed By: #### C BC, FES, ANEU, CMP, GFR, FERR, ADIFF #### [place] [address] MCV (RBC) [Entitic vol] 97.3 fL High 80.0-94.0 [facility] ([place]) Comment on above: Performed By: #### C BC, FES, ANEU, CMP, GFR, FERR, ADIFF #### [address] [address] Platelet 89 10 3/mcL Low 130-400 Replaced by [facility] ([place]) Comment on above: Performed By: #### C BC, FES, ANEU, CMP, GFR, FERR, ADIFF #### [address] [address] Platelet mean volume (Bld) [Entitic vol] 8.6 fL Normal 7.4-10.4 [facility] ([place]) Comment on above: Performed By: #### C BC, FES, ANEU, CMP, GFR, FERR, ADIFF #### [address] [address] RBC 3.76 10 6/mcL Low 4.20-5.40 [facility] ([place]) Comment on above: Performed By: #### C BC, FES, ANEU, CMP, GFR, FERR, ADIFF #### [address] [address] WBC 4.5 10 3/mcL Low 4.6-10.8 [facility] ([place]) Comment on above: Performed By: #### C BC, FES, ANEU, CMP, GFR, FERR, ADIFF #### [address] [address] CMPon 09-13-2023 Albumin Level 3.3 G/dL Low 3.5-5.0 [facility] [place]) Comment on above: Performed By: #### C BC, FES, ANEU, CMP, GFR, FERR, ADIFF #### [address] [address] Albumin/Globulin [Mass ratio] 0.7 {ratio} Low 1.1-2.5 [facility]) Comment on above: Performed By: #### C BC, FES, ANEU, CMP, GFR, FERR, ADIFF #### [address] [address] ALP [Catalytic activity/Vol] 202 U/L High 40-135 [facility] ([place]) Comment on above: Performed By: #### C BC, FES, ANEU, CMP, GFR, FERR, ADIFF #### [address] [address] ALT [Catalytic activity/Vol] 43 U/L Normal 14-59 [facility] ([place]) Comment on above: Performed By: #### C BC, FES, ANEU, CMP, GFR, FERR, ADIFF #### [address] [address] AST [Catalytic activity/Vol] 72 U/L High 10-40 [facility] ([place]) Comment on above: Performed By: #### C BC, FES, ANEU, CMP, GFR, FERR, ADIFF #### [address] [address] Bili Total 1.4 mg/dL High 0.2-1.0 [facility] ([place]) Comment on above: Result Comment: Use of this assay is not recommended for patients undergoing treatment with eltrombopag due to the potential for falsely elevated results. Performed By: #### C BC, FES, ANEU, CMP, GFR, FERR, ADIFF #### [address] [address] BUN/Creatinine Ratio 9 ratio Normal 7-27 [facility] ([place]) Comment on above: Performed By: #### C BC, FES, ANEU, CMP, GFR, FERR, ADIFF #### [address] [address] Calcium [Mass/Vol] 8.7 mg/dL Normal 8.4-10.2 [facility] ([place]) Comment on above: Performed By: #### C BC, FES, ANEU, CMP, GFR, FERR, ADIFF #### [address] [address] Chloride [Moles/Vol] 103 mmol/L Normal 98-107 [facility] ([place]) Comment on above: Performed By: #### C BC, FES, ANEU, CMP, GFR, FERR, ADIFF #### [address] [address] CO2 [Moles/Vol] 27 mmol/L Normal 22-29 [facility] ([place]) Comment on above: Performed By: #### C BC, FES, ANEU, CMP, GFR, FERR, ADIFF #### [address] [address] Creatinine [Mass/Vol] 0.57 mg/dL Normal 0.55-1.02 [facility] ([place]) Comment on above: Performed By: #### C BC, FES, ANEU, CMP, GFR, FERR, ADIFF #### [address] [address] Electrolyte Balance 10.0 mEq/L Normal 4.0-15.0 [facility] ([place]) Comment on above: Performed By: #### C BC, FES, ANEU, CMP, GFR, FERR, ADIFF #### [address] [address] Globulin 4.6 G/dL Normal [facility] ([place]) Comment on above: Performed By: #### C BC, FES, ANEU, CMP, GFR, FERR, ADIFF #### [address] [address] Glucose [Mass/Vol] 187 mg/dL High 70-105 [facility] ([place]) Comment on above: Performed By: #### C BC, FES, ANEU, CMP, GFR, FERR, ADIFF #### [address] [address] Potassium [Moles/Vol] 3.4 mmol/L Low 3.5-5.1 [facility] ([place]) Comment on above: Performed By: #### C BC, FES, ANEU, CMP, GFR, FERR, ADIFF #### [address] [address] Sodium [Moles/Vol] 140 mmol/L Normal 136-145 [facility] ([place]) Comment on above: Performed By: #### C BC, FES, ANEU, CMP, GFR, FERR, ADIFF #### [address] [address] Total Protein 7.9 G/dL Normal 6.4-8.2 [facility] [place]) Comment on above: Performed By: #### C BC, FES, ANEU, CMP, GFR, FERR, ADIFF #### [address] [address] Urea nitrogen [Mass/Vol] 5 mg/dL Low 7-18 [facility] ([place]) Comment on above: Performed By: #### C BC, FES, ANEU, CMP, GFR, FERR, ADIFF #### [address] [address] Christopher 09-13-2023 Ferritin [Mass/Vol] 87.0 ng/mL Normal 8.0-252.0 [facility] ([place]) Comment on above: Performed By: #### C BC, FES, ANEU, CMP, GFR, FERR, ADIFF #### [place] [address] [place], [place] [address] FESon 09-13-2023 Iron [Mass/Vol] 61 ug/dL Normal 50-170 [facility] ([place]) Comment on above: Performed By: #### C BC, FES, ANEU, CMP, GFR, FERR, ADIFF #### [place] [address] [place], [place] [address] Iron Sat 17 % Normal [facility] ([place]) Comment on above: Performed By: #### C BC, FES, ANEU, CMP, GFR, FERR, ADIFF #### [place] [address] [place], [place] [address] TIBC 368 mcg/dL Normal 250-450 [facility] ([place]) Comment on above: Performed By: #### C BC, FES, ANEU, CMP, GFR, FERR, ADIFF #### [place] [id number] LABORATORYOrdered By: SYSTEM SYSTEM on 09-13-2023 Albumin BCP dye [Mass/Vol] 3.3 G/dL Low 3.5 - 5.0 G/dL AO ADM SS Albumin/Globulin [Mass ratio] 0.7 {ratio} Low 1.1 - 2.5 ratio AO ADM SS ALP [Catalytic activity/Vol] 202 U/L High 40 - 135 U/L AO ADM SS ALT With P-5'-P [Catalytic activity/Vol] 43 U/L Normal 14 - 59 U/L AO ADM SS AST With P-5'-P [Catalytic activity/Vol] 72 U/L High 10 - 40 U/L AO ADM SS Basophil, Absolute 0.0 103/mcL Normal 0.0 - 0.2 10^3/mcL AO Workflow SS Basophils/100 WBC (Bld) 0.4 % Normal 0.0 - 2.5 % AO Workflow SS Bilirubin [Mass/Vol] 1.4 mg/dL High 0.2 - 1 .0 mg/dL AO ADM SS Comment on above: Interpretive Data: U se of this assay is not recommended for patients undergoing treatment with eltrombopag due to the potential for falsely elevated results. Calcium [Mass/Vol] 8.7 mg/dL Normal 8.4 - 10. 2 mg/dL AO ADM SS Chloride [Moles/Vol] 103 mmol/L Normal 98 - 10 7 mmol/L AO ADM SS CO2 [Moles/Vol] 27 mmol/L Normal 22 - 29 mmol/L AO ADM SS Creatinine [Mass/Vol] 0.57 mg/dL Normal 0.55 - 1.02 mg/dL AO ADM SS Electrolyte Balance 10.0 mEq/L Normal 4.0 - 15 .0 mEq/L AO ADM SS Eosinophil, Absolute 0.3 103/mcL Normal 0.0 - 0 .4 10^3/mcL AO Workflow SS Eosinophils/100 WBC (Bld) 5.9 % Normal 0.0 - 7.0 % AO Workflow SS Erythrocyte distribution width (RBC) [Ratio] 15.9 % High 11.5 - 14.5 % AO Workflow SS Ferritin [Mass/Vol] 87.0 ng/mL Normal 8.0 - 252.0 ng/mL AO ADM SS GFR/1.73 sq M.predicted among blacks MDRD (S/P/Bld) [Vol rate/Area] 132 ml/min/1.73sqm Invalid Interpretation Code AO Chemistry S Comment on above: Interpretive Data: GFR Population mean for , Non- Americans Ages 20-29 = 116 mL/min/1.73 sq.m. Ages 30-39 = 107 mL/min/1.73 sq.m. Ages 40-49 = 99 mL/min/1.73 sq.m. Ages 50-59 = 93 mL/min/1.73 sq.m. Ages 60-69 = 85 mL/min/1.73 sq.m. Ages 70+ = 75 mL/min/1.73 sq.m. Chronic Kidney Disease: Less than 60 mL/min/1.73 square meters End Stage Renal Disease: Less than 15 mL/min/1.73 square meters GFR/1.73 sq M.predicted among non-blacks MDRD (S/P/Bld) [Vol rate/Area] 109 ml/min/1.73sqm Invalid Interpretation Code AO Chemistry S Comment on above: Interpretive Data: GFR Population mean for , Non- Americans Ages 20-29 = 116 mL/min/1.73 sq.m. Ages 30-39 = 107 mL/min/1.73 sq.m. Ages 40-49 = 99 mL/min/1.73 sq.m. Ages 50-59 = 93 mL/min/1.73 sq.m. Ages 60-69 = 85 mL/min/1.73 sq.m. Ages 70+ = 75 mL/min/1.73 sq.m. Chronic Kidney Disease: Less than 60 mL/min/1.73 square meters End Stage Renal Disease: Less than 15 mL/min/1.73 square meters Globulin 4.6 G/dL Invalid Interpretation Code AO ADM SS Glucose [Mass/Vol] 187 mg/dL High 70 - 105 mg/dL AO ADM SS Hematocrit (Bld) [Volume fraction] 36.6 % Low 37.0 - 47.0 % AO Workflow SS Hemoglobin (Bld) [Mass/Vol] 12.8 G/dL Normal 12.0 - 16.0 G/dL AO Workflow SS Iron [Mass/Vol] 61 ug/dL Normal 50 - 170 mcg/dL AO ADM SS Iron binding capacity [Mass/Vol] 368 mcg/dL Normal 250 - 450 mcg/dL AO ADM SS Iron Sat 17 % Invalid Interpretation Code AO ADM SS Lymphocyte, Absolute 1.2 103/mcL Normal 0.8 - 3 .9 10^3/mcL AO Workflow SS Lymphocytes/100 WBC (Bld) 27.1 % Normal 10.0 - 50.0 % AO Workflow SS MCH (RBC) [Entitic mass] 34.0 pg High 27.0 - 31.2 pg AO Workflow SS MCHC 35.0 G/dL Normal 33.0 - 37.0 G/dL AO Workflow SS MCV (RBC) [Entitic vol] 97.3 fL High 80.0 - 94.0 fL AO Workflow SS Monocyte, Absolute 0.5 103/mcL Normal 0.2 - 1.0 10^3/mcL AO Workflow SS Monocytes/100 WBC (Bld) 10.1 % Normal 1.7 - 13.0 % AO Workflow SS Neutrophil, Absolute 2.5 103/mcL Low 2.9 - 6 .2 10^3/mcL AO Workflow SS Neutrophils/100 WBC (Bld) 56.5 % Normal 37.0 - 80.0 % AO Workflow SS Platelet mean volume (Bld) [Entitic vol] 8.6 fL Normal 7.4 - 10.4 fL AO Workflow SS Platelets (Bld) [#/Vol] 89 103/mcL Low 130 - 400 10^3/mcL AO Workflow SS Potassium [Moles/Vol] 3.4 mmol/L Low 3.5 - 5.1 mmol/L AO ADM SS Protein [Mass/Vol] 7.9 G/dL Normal 6.4 - 8.2 G/dL AO ADM SS RBC (Bld) [#/Vol] 3.76 106/mcL Low 4.20 - 5.40 10^6/mcL AO Workflow SS Sodium [Moles/Vol] 140 mmol/L Normal 136 - 145 mmol/L AO ADM SS Urea nitrogen [Mass/Vol] 5 mg/dL Low 7 - 18 mg/dL AO ADM SS Urea nitrogen/Creatinine [Mass ratio] 9 ratio Normal 7 - 27 ratio AO ADM SS WBC (Bld) [#/Vol] 4.5 103/mcL Low 4.6 - 10.8 10^3/mcL AO Workflow SS ERYTHon 05-27-2023 Erythropoietin 71.0 mIU/mL High 2.6-18.5 [facility] ([place]) Comment on above: Result Comment: Zipidee DxI 800 Immunoassay System Values obtained with different assay methods or kits cannot be used interchangeably. Results cannot be interpreted as absolute evidence of the presence or absence of malignant disease. Performed At: [facility] [id number] Bakari Carl PhD Ph:[phone] Performed By: #### F ES, ADIFF, ANEU, RETIC, FOL, FERR, [id number], CBC, B12 ####[place] [address] .Auto Diffon 05-26-2023 Basophil, Absolute 0.0 10 3/mcL Normal 0.0-0.3 [facility] ([place]) Comment on above: Performed By: #### F ES, ADIFF, ANEU, RETIC, FOL, FERR, [id number], CBC, B12 ####[place] [address] Basophils/100 WBC (Bld) 0.3 % Normal 0.0-2.5 [facility] ([place]) Comment on above: Performed By: #### F ES, ADIFF, ANEU, RETIC, FOL, FERR, [id number], CBC, B12 ####[address] [address] Eosinophil, Absolute 0.2 10 3/mcL Normal 0.0-0.7 [facility] ([place]) Comment on above: Performed By: #### F ES, ADIFF, ANEU, RETIC, FOL, FERR, [id number], CBC, B12 ####[address] [address] Eosinophils/100 WBC (Bld) 3.6 % Normal 0.0-6.0 [facility] ([place]) Comment on above: Performed By: #### F ES, ADIFF, ANEU, RETIC, FOL, FERR, [id number], CBC, B12 ####[address] [address] Lymphocyte, Absolute 1.2 10 3/mcL Normal 0.9-4.3 [facility] ([place]) Comment on above: Performed By: #### F ES, ADIFF, ANEU, RETIC, FOL, FERR, [id number], CBC, B12 ####[address] [address] Lymphocytes/100 WBC (Bld) 26.5 % Normal 20.0-40.0 [facility] ([place]) Comment on above: Performed By: #### F ES, ADIFF, ANEU, RETIC, FOL, FERR, [id number], CBC, B12 ####[address] [address] Monocyte, Absolute 0.4 10 3/mcL Normal 0.1-1.4 [facility] ([place]) Comment on above: Performed By: #### F ES, ADIFF, ANEU, RETIC, FOL, FERR, [id number], CBC, B12 ####[address] [address] Monocytes/100 WBC (Bld) 8.4 % Normal 2.0-13.0 [facility] ([place]) Comment on above: Performed By: #### F ES, ADIFF, ANEU, RETIC, FOL, FERR, [id number], CBC, B12 ####[address] [address] Neutrophils/100 WBC (Bld) 61.2 % Normal 50.0-75.0 [facility] ([place]) Comment on above: Performed By: #### F ES, ADIFF, ANEU, RETIC, FOL, FERR, [id number], CBC, B12 ####[place] [address] .NEUABSon 05-26-2023 Neutrophil, Absolute 2.7 10 3/mcL Normal 2.3-8.1 [facility] ([place]) Comment on above: Performed By: #### F ES, ADIFF, ANEU, RETIC, FOL, FERR, [id number], CBC, B12 ####[place] [address] B12on 05-26-2023 Cobalamin (Vitamin B12) [Mass/Vol] 628 pg/mL Normal 211-911 [facility] ([place]) Comment on above: Performed By: #### F ES, ADIFF, ANEU, RETIC, FOL, FERR, [id number], CBC, B12 ####[place] [address] CBCon 05-26-2023 Erythrocyte distribution width (RBC) [Ratio] 15.4 % Normal 11.5-15.5 [facility] ([place]) Comment on above: Performed By: #### F ES, ADIFF, ANEU, RETIC, FOL, FERR, [id number], CBC, B12 ####[place] [address] Hematocrit (Bld) [Volume fraction] 34.9 % Normal 34.0-46.0 [facility] ([place]) Comment on above: Performed By: #### F ES, ADIFF, ANEU, RETIC, FOL, FERR, [id number], CBC, B12 ####[place] [address] Hgb 11.6 G/dL Low 12.0-16.0 [facility] ([place]) Comment on above: Performed By: #### F ES, ADIFF, ANEU, RETIC, FOL, FERR, 230828, CBC, B12 ####[place] [address] MCH (RBC) [Entitic mass] 30.8 pg Normal 27.0-33.0 [facility] ([place]) Comment on above: Performed By: #### F ES, ADIFF, ANEU, RETIC, FOL, FERR, 445227, CBC, B12 ####[place] [address] MCHC 33.3 G/dL Normal 32.0-36.0 [facility] ([place]) Comment on above: Performed By: #### F ES, ADIFF, ANEU, RETIC, FOL, FERR, 177924, CBC, B12 ####[place] [address] MCV (RBC) [Entitic vol] 92.3 fL Normal 80.0-99.0 [facility] ([place]) Comment on above: Performed By: #### F ES, ADIFF, ANEU, RETIC, FOL, FERR, 147937, CBC, B12 ####[place] [address] Platelet 118 10 3/mcL Low 150-450 [facility] ([place]) Comment on above: Performed By: #### F ES, ADIFF, ANEU, RETIC, FOL, FERR, 175364, CBC, B12 ####[place] [address] Platelet mean volume (Bld) [Entitic vol] 8.2 fL Normal 6.6-10.5 [facility] ([place]) Comment on above: Performed By: #### F ES, ADIFF, ANEU, RETIC, FOL, FERR, [id number], CBC, B12 ####[place] [address] RBC 3.78 10 6/mcL Low 4.10-5.30 [facility] ([place]) Comment on above: Performed By: #### F ES, ADIFF, ANEU, RETIC, FOL, FERR, 328907, CBC, B12 ####[place] [address] WBC 4.4 10 3/mcL Low 4.5-10.8 [facility] ([place]) Comment on above: Performed By: #### F ES, ADIFF, ANEU, RETIC, FOL, FERR, [id number], CBC, B12 ####[address] [address] Christopher 05-26-2023 Ferritin [Mass/Vol] 16.8 ng/mL Normal 8.0-252.0 [facility] ([place]) Comment on above: Performed By: #### F ES, ADIFF, ANEU, RETIC, FOL, FERR, [id number], CBC, B12 ####[place] [address] FESon 05-26-2023 Iron [Mass/Vol] 80 ug/dL Normal 50-170 [facility] ([place]) Comment on above: Performed By: #### F ES, ADIFF, ANEU, RETIC, FOL, FERR, 467139, CBC, B12 ####[place] [address] Iron Sat 18 % Normal [facility] ([place]) Comment on above: Performed By: #### F ES, ADIFF, ANEU, RETIC, FOL, FERR, 596840, CBC, B12 ####[place] [address] TIBC 435 mcg/dL Normal 250-500 [facility] ([place]) Comment on above: Performed By: #### F ES, ADIFF, ANEU, RETIC, FOL, FERR, 178343, CBC, B12 ####[place] [address] FOLon 05-26-2023 Folate 16.35 ng/mL Normal 5.38-24.00 Replaced by [facility] ([place]) Comment on above: Performed By: #### F ES, ADIFF, ANEU, RETIC, FOL, FERR, 473469, CBC, B12 ####[place] [address] LABORATORYOrdered By: SYSTEM SYSTEM on 05-26-2023 Basophils (Bld) [#/Vol] 0.0 103/mcL Normal 0.0 - 0.3 10^3/mcL AH Workflow SS Basophils/100 WBC (Bld) 0.3 % Normal 0.0 - 2.5 % AH Workflow SS Cobalamin (Vitamin B12) [Mass/Vol] 628 pg/mL Normal 211 - 911 pg/mL AH ADM SS Eosinophils (Bld) [#/Vol] 0.2 103/mcL Normal 0.0 - 0.7 10^3/mcL Workflow SS Eosinophils/100 WBC (Bld) 3.6 % Normal 0.0 - 6.0 % Workflow SS Erythrocyte distribution width (RBC) [Ratio] 15.4 % Normal 11.5 - 15.5 % Workflow SS Ferritin [Mass/Vol] 16.8 ng/mL Normal 8.0 - 252.0 ng/mL ADM SS Folate [Mass/Vol] 16.35 ng/mL Normal 5.38 - 24.00 ng/mL ADM SS Hematocrit (Bld) [Volume fraction] 34.9 % Normal 34.0 - 46.0 % Workflow SS Hemoglobin (Bld) [Mass/Vol] 11.6 G/dL Low 12.0 - 16.0 G/dL Workflow SS Immature reticulocytes/Total reticulocytes (Bld) 0.42 IRF Normal 0.20 - 0.46 IRF Workflow SS Iron [Mass/Vol] 80 ug/dL Normal 50 - 170 mcg/dL ADM SS Iron binding capacity [Mass/Vol] 435 mcg/dL Normal 250 - 500 mcg/dL ADM SS Iron saturation [Mass fraction] 18 % Invalid Interpretation Code ADM SS Lymphocytes (Bld) [#/Vol] 1.2 103/mcL Normal 0.9 - 4.3 10^3/mcL Workflow SS Lymphocytes/100 WBC (Bld) 26.5 % Normal 20.0 - 40.0 % Workflow SS MCH (RBC) [Entitic mass] 30.8 pg Normal 27.0 - 33.0 pg Workflow SS MCHC 33.3 G/dL Normal 32.0 - 36.0 G/dL Workflow SS MCV (RBC) [Entitic vol] 92.3 fL Normal 80.0 - 99.0 fL Workflow SS Monocytes (Bld) [#/Vol] 0.4 103/mcL Normal 0.1 - 1.4 10^3/mcL Workflow SS Monocytes/100 WBC (Bld) 8.4 % Normal 2.0 - 13.0 % Workflow SS Neutrophils (Bld) [#/Vol] 2.7 103/mcL Normal 2.3 - 8.1 10^3/mcL Workflow SS Neutrophils/100 WBC (Bld) 61.2 % Normal 50.0 - 75.0 % AH Workflow SS Platelet mean volume (Bld) [Entitic vol] 8.2 fL Normal 6.6 - 10.5 fL AH Workflow SS Platelets (Bld) [#/Vol] 118 103/mcL Low 150 - 450 10^3/mcL AH Workflow SS RBC (Bld) [#/Vol] 3.78 106/mcL Low 4.10 - 5.30 10^6/mcL AH Workflow SS Reticulocytes, Auto 1.7 % Normal 0.2 - 2. 3 % AH Workflow SS WBC (Bld) [#/Vol] 4.4 103/mcL Low 4.5 - 10.8 10^3/mcL AH Workflow SS RETICon 05-26-2023 Immature Retic Fraction 0.42 IRF Normal 0.20-0.46 [facility] ([place]) Comment on above: Performed By: #### F ES, ADIFF, ANEU, RETIC, FOL, FERR, [id number], CBC, B12 ####[address] [address] Reticulocytes, Auto 1.7 % Normal 0.2-2.3 [facility] ([place]) Comment on above: Performed By: #### F ES, ADIFF, ANEU, RETIC, FOL, FERR, [id number], CBC, B12 ####[address] [address] LABORATORYOrdered By: Miguelina Hicks on 05-18-2023 Albumin DL <= 20 mg/L (U) [Mass/Vol] 6363 mcg/dL Invalid Interpretation Code AO ADM SS Albumin/Creatinine DL <= 20 mg/L (U) [Mass ratio] 27 mcg/mg Normal 0 - 30 mcg/mg AO ADM SS Creatinine (U) [Mass/Vol] 231.8 mg/dL High 28.0 - 117.0 mg/dL AO ADM SS MALBRon 05-18-2023 U Creatinine 231.8 mg/dL High 28.0-117.0 [facility] ([place]) Comment on above: Performed By: #### C BC, FES, ANEU, CMP, GFR, FERR, ADIFF #### [address] [address] U Microalb 6363 mcg/dL Normal Replaced by [facility] ([place]) Comment on above: Performed By: #### C BC, FES, ANEU, CMP, GFR, FERR, ADIFF #### [facility] [address] [place], [place] [address] U Ratio Alb/Cre 27 mcg/mg Normal 0-30 [facility] ([place]) Comment on above: Performed By: #### C BC, FES, ANEU, CMP, GFR, FERR, ADIFF #### [facility] [address] [place], [place] [address] US ELASTOGRAPHY LIVER ONLYon 05-04-2023 US ELASTOGRAPHY LIVER ONLY ORIGINAL EXAMINATION: Hepatic elastography TECHNIQUE: 2D Shear Wave Elastography of the liver was attempted in the right lobe. COMPARISON: Ultrasound 03/24/2023 HISTORY: Elevated liver enzymes, nodular contour of liver on previous ultrasound FINDINGS: Despite multiple attempts, no reliable and diagnostic elastography median velocity measurements could be obtained from the liver. Some of this is probably related to patient's large body habitus and increased depth of the liver from the skin surface that is more than 4 cm on multiple images. IMPRESSION: Nondiagnostic liver elastography. Interpreted by: Lamonte Lakhani MD Preliminary Report By: Lamonte Lakhani MD Electronically signed By Lamonte Lakhani MD Dictated Date: 05/04/2023 6:31:36 PM Prelim Date: 05/04/2023 6:34:15 PM Sign Date: 05/04/2023 6:34:15 PM Ordering Provider: ROSARIO Funes [facility] ([place]) US ABDOMEN LIMITEDon 02-2 023 US ABDOMEN LIMITED ORIGINAL EXAMINATION: LIMITED ABDOMINAL ULTRASOUND03/26/2023 8:17 am COMPARISON: None HISTORY: ORDERING SYSTEM PROVIDED HISTORY: Reason for Exam: elevated liver enzymes FINDINGS: The liver is diffusely coarsened and mildly heterogeneous with mildly increased echogenicity and nodular margins. No discrete focal mass is seen. There is antegrade flow in the main portal vein with no obvious thrombosis. The visualized pancreas is. The gallbladder is present and moderately distended with sludge and likely 8 mm calculus. There is no abnormal wall thickening or pericholecystic edema. Negative sonographic West's sign. There is no right upper quadrant ascites. The right kidney is grossly normal in size cortical thickness and echogenicity with no pelvocaliectasis. Limited visualization of the upper aorta and IVC. IMPRESSION: No acute findings. Gallstone without secondary signs of acute cholecystitis. Diffuse hepatocellular disease with slightly nodular liver margins. Consider the possibility of cirrhosis. Suggest liver elastography. Interpreted by: Lamonte Lakhani MD Preliminary Report By: Lamonte Lakhani MD Electronically signed By Lamonte Lakhani MD Dictated Date: 03/29/2023 11:35:21 PM Prelim Date: 03/29/2023 11:37:48 PM Sign Date: 03/29/2023 11:37:48 PM Ordering Provider: ROSARIO Funes [facility] ([place]) .Auto Diffon 03-09-2023 Basophil, Absolute 0.0 10 3/mcL Normal 0.0-0.2 [facility] ([place]) Comment on above: Performed By: #### F T4, CBC, ADIFF, TSH, GFR, ANEU, CMP, VIDH ####[place] [address]#### B12 ####[address] [address] Basophils/100 WBC (Bld) 0.2 % Normal 0.0-2.5 [facility] ([place]) Comment on above: Performed By: #### F T4, CBC, ADIFF, TSH, GFR, ANEU, CMP, VIDH ####[place] [address]#### B12 ####[address] [address] Eosinophil, Absolute 0.2 10 3/mcL Normal 0.0-0.4 [facility] ([place]) Comment on above: Performed By: #### F T4, CBC, ADIFF, TSH, GFR, ANEU, CMP, VIDH ####[place] [address]#### B12 ####[address] [address] Eosinophils/100 WBC (Bld) 4.7 % Normal 0.0-7.0 [facility] ([place]) Comment on above: Performed By: #### F T4, CBC, ADIFF, TSH, GFR, ANEU, CMP, VIDH ####[place] [address]#### B12 ####[address] [address] Lymphocyte, Absolute 1.0 10 3/mcL Normal 0.8-3.9 [facility] ([place]) Comment on above: Performed By: #### F T4, CBC, ADIFF, TSH, GFR, ANEU, CMP, VIDH ####[place] [address]#### B12 ####[address] [address] Lymphocytes/100 WBC (Bld) 25.8 % Normal 10.0-50.0 [facility] ([place]) Comment on above: Performed By: #### F T4, CBC, ADIFF, TSH, GFR, ANEU, CMP, VIDH ####[place] [address]#### B12 ####[address] [address] Monocyte, Absolute 0.4 10 3/mcL Normal 0.2-1.0 [facility] ([place]) Comment on above: Performed By: #### F T4, CBC, ADIFF, TSH, GFR, ANEU, CMP, VIDH ####[place] [address]#### B12 ####[address] [address] Monocytes/100 WBC (Bld) 9.0 % Normal 1.7-13.0 [facility] ([place]) Comment on above: Performed By: #### F T4, CBC, ADIFF, TSH, GFR, ANEU, CMP, VIDH ####[place] [address]#### B12 ####[address] [address] Neutrophils/100 WBC (Bld) 60.3 % Normal 37.0-80.0 [facility] ([place]) Comment on above: Performed By: #### F T4, CBC, ADIFF, TSH, GFR, ANEU, CMP, VIDH ####[address] [place], [place] [address]#### B12 ####[address] [address] .GFRon 03-09-2023 GFR 108 ml/min/1.73sqm Normal [facility] ([place]) Comment on above: Result Comment: GFR Population mean for , [...] 15 mL/min/1.73 square meters Performed By: #### F T4, CBC, ADIFF, TSH, GFR, ANEU, CMP, VIDH ####[address] [place], [place] [address]#### B12 ####[address] [address] GFR Non- 89 ml/min/1.73sqm Normal [facility] ([place]) Comment on above: Result Comment: GFR Population mean for , [...] 15 mL/min/1.73 square meters Performed By: #### F T4, CBC, ADIFF, TSH, GFR, ANEU, CMP, VIDH ####[place] [address]#### B12 ####[place] [address] .NEUABSon 03-09-2023 Neutrophil, Absolute 2.4 10 3/mcL Low 2.9-6.2 [facility] ([place]) Comment on above: Performed By: #### F T4, CBC, ADIFF, TSH, GFR, ANEU, CMP, VIDH ####[place] [address]#### B12 ####[place] [address] B12on 03-09-2023 Cobalamin (Vitamin B12) [Mass/Vol] 1349 pg/mL High 211-911 [facility] ([place]) Comment on above: Performed By: #### F T4, CBC, ADIFF, TSH, GFR, ANEU, CMP, VIDH ####[place] [address]#### B12 ####[place] [address] CBCon 03-09-2023 Erythrocyte distribution width (RBC) [Ratio] 17.2 % High 11.5-14.5 [facility] ([place]) Comment on above: Performed By: #### F T4, CBC, ADIFF, TSH, GFR, ANEU, CMP, VIDH ####[place] [address]#### B12 ####[place] [address] Hematocrit (Bld) [Volume fraction] 34.8 % Low 37.0-47.0 [facility] ([place]) Comment on above: Performed By: #### F T4, CBC, ADIFF, TSH, GFR, ANEU, CMP, VIDH ####[place] [address]#### B12 ####[place] [address] Hgb 11.6 G/dL Low 12.0-16.0 [facility] ([place]) Comment on above: Performed By: #### F T4, CBC, ADIFF, TSH, GFR, ANEU, CMP, VIDH ####[place] [address]#### B12 ####[place] [address] MCH (RBC) [Entitic mass] 30.7 pg Normal 27.0-31.2 [facility] ([place]) Comment on above: Performed By: #### F T4, CBC, ADIFF, TSH, GFR, ANEU, CMP, VIDH ####[place] [address]#### B12 ####[place] [address] MCHC 33.4 G/dL Normal 33.0-37.0 [facility] ([place]) Comment on above: Performed By: #### F T4, CBC, ADIFF, TSH, GFR, ANEU, CMP, VIDH ####[place] [address]#### B12 ####[place] [address] MCV (RBC) [Entitic vol] 92.1 fL Normal 80.0-94.0 [facility] ([place]) Comment on above: Performed By: #### F T4, CBC, ADIFF, TSH, GFR, ANEU, CMP, VIDH ####[place] [address]#### B12 ####[place] [address] Platelet 97 10 3/mcL Low 130-400 Replaced by [facility] ([place]) Comment on above: Performed By: #### F T4, CBC, ADIFF, TSH, GFR, ANEU, CMP, VIDH ####[place] [address]#### B12 ####[place] [address] Platelet mean volume (Bld) [Entitic vol] 8.5 fL Normal 7.4-10.4 [facility] ([place]) Comment on above: Performed By: #### F T4, CBC, ADIFF, TSH, GFR, ANEU, CMP, VIDH ####[place] [address]#### B12 ####[address] [address] RBC 3.78 10 6/mcL Low 4.20-5.40 [facility] [place]) Comment on above: Performed By: #### F T4, CBC, ADIFF, TSH, GFR, ANEU, CMP, VIDH ####[place] [address]#### B12 ####[place] [address] WBC 4.0 10 3/mcL Low 4.6-10.8 [facility] ([place]) Comment on above: Performed By: #### F T4, CBC, ADIFF, TSH, GFR, ANEU, CMP, VIDH ####[place] [address]#### B12 ####[place] [address] CMPon 03-09-2023 Albumin Level 3.7 G/dL Normal 3.5-5.0 [facility] [place]) Comment on above: Performed By: #### F T4, CBC, ADIFF, TSH, GFR, ANEU, CMP, VIDH ####[place] [address]#### B12 ####[place] [address] Albumin/Globulin [Mass ratio] 0.8 {ratio} Low 1.1-2.5 [facility] ([place]) Comment on above: Performed By: #### F T4, CBC, ADIFF, TSH, GFR, ANEU, CMP, VIDH ####[place] [address]#### B12 ####[address] [address] ALP [Catalytic activity/Vol] 197 U/L High 40-135 [facility] ([place]) Comment on above: Performed By: #### F T4, CBC, ADIFF, TSH, GFR, ANEU, CMP, VIDH ####[place] [id number]#### B12 ####[place] [address] ALT [Catalytic activity/Vol] 44 U/L Normal 14-59 [facility] ([place]) Comment on above: Performed By: #### F T4, CBC, ADIFF, TSH, GFR, ANEU, CMP, VIDH ####[place] [address]#### B12 ####[place] [address] AST [Catalytic activity/Vol] 68 U/L High 10-40 [facility] ([place]) Comment on above: Performed By: #### F T4, CBC, ADIFF, TSH, GFR, ANEU, CMP, VIDH ####[place] [address]#### B12 ####[place] [address] Bili Total 0.7 mg/dL Normal 0.2-1.0 [facility] ([place]) Comment on above: Result Comment: Use of this assay is not recommended for patients undergoing treatment with eltrombopag due to the potential for falsely elevated results. Performed By: #### F T4, CBC, ADIFF, TSH, GFR, ANEU, CMP, VIDH ####[place] [address]#### B12 ####[place] [address] BUN/Creatinine Ratio 9 ratio Normal 7-27 [facility] ([place]) Comment on above: Performed By: #### F T4, CBC, ADIFF, TSH, GFR, ANEU, CMP, VIDH ####[place] [address]#### B12 ####[place] [address] Calcium [Mass/Vol] 8.8 mg/dL Normal 8.4-10.2 [facility] ([place]) Comment on above: Performed By: #### F T4, CBC, ADIFF, TSH, GFR, ANEU, CMP, VIDH ####[place] [address]#### B12 ####[place] [address] Chloride [Moles/Vol] 103 mmol/L Normal 98-107 [facility] ([place]) Comment on above: Performed By: #### F T4, CBC, ADIFF, TSH, GFR, ANEU, CMP, VIDH ####[place] [address]#### B12 ####[place] [address] CO2 [Moles/Vol] 22 mmol/L Normal 22-29 [facility] ([place]) Comment on above: Performed By: #### F T4, CBC, ADIFF, TSH, GFR, ANEU, CMP, VIDH ####[place] [address]#### B12 ####[place] [address] Creatinine [Mass/Vol] 0.68 mg/dL Normal 0.55-1.02 [facility] ([place]) Comment on above: Performed By: #### F T4, CBC, ADIFF, TSH, GFR, ANEU, CMP, VIDH ####[place] [address]#### B12 ####[place] [address] Electrolyte Balance 13.0 mEq/L Normal 4.0-15.0 [facility] ([place]) Comment on above: Performed By: #### F T4, CBC, ADIFF, TSH, GFR, ANEU, CMP, VIDH ####[place] [address]#### B12 ####[address] [address] Globulin 4.7 G/dL Normal [facility] ([place]) Comment on above: Performed By: #### F T4, CBC, ADIFF, TSH, GFR, ANEU, CMP, VIDH ####[address] [address]#### B12 ####[address] [address] Glucose [Mass/Vol] 154 mg/dL High 70-105 [facility] ([place]) Comment on above: Performed By: #### F T4, CBC, ADIFF, TSH, GFR, ANEU, CMP, VIDH ####[place] [address]#### B12 ####[address] [address] Potassium [Moles/Vol] 4.1 mmol/L Normal 3.5-5.1 [facility] ([place]) Comment on above: Performed By: #### F T4, CBC, ADIFF, TSH, GFR, ANEU, CMP, VIDH ####[place] [address]#### B12 ####[address] [address] Sodium [Moles/Vol] 138 mmol/L Normal 136-145 [facility] ([place]) Comment on above: Performed By: #### F T4, CBC, ADIFF, TSH, GFR, ANEU, CMP, VIDH ####[place] [address]#### B12 ####[address] [address] Total Protein 8.4 G/dL High 6.4-8.2 [facility] ([place]) Comment on above: Performed By: #### F T4, CBC, ADIFF, TSH, GFR, ANEU, CMP, VIDH ####[place] [address]#### B12 ####[place] [address] Urea nitrogen [Mass/Vol] 6 mg/dL Low 7-18 [facility] ([place]) Comment on above: Performed By: #### F T4, CBC, ADIFF, TSH, GFR, ANEU, CMP, VIDH ####[place] [address]#### B12 ####[place] [address] FT4on 03-09-2023 Free T4 [Mass/Vol] 1.18 ng/dL Normal 0.76-1.46 [facility] ([place]) Comment on above: Performed By: #### F T4, CBC, ADIFF, TSH, GFR, ANEU, CMP, VIDH ####[place] [address]#### B12 ####[place] [address] TSHon 03-09-2023 TSH Qn 1.57 m[IU]/L Normal 0.36-3.74 [facility] ([place]) Comment on above: Performed By: #### F T4, CBC, ADIFF, TSH, GFR, ANEU, CMP, VIDH ####[place] [address]#### B12 ####[place] [address] VIDHon 03-09-2023 Vit. D 25-Hydroxy 14.7 ng/mL Normal [facility] ([place]) Comment on above: Result Comment: Inte rpretive Values Based on Total 25(OH) Vitamin D: Deficient <20 ng/mL Insufficient 20 - <30 ng/mL Sufficient 30-100 ng/mL Performed By: #### F T4, CBC, ADIFF, TSH, GFR, ANEU, CMP, VIDH ####[place] [address]#### B12 ####[place] [address] LABORATORYOrdered By: Julio Armstrong on 12-22-2021 Basophil, Absolute 0.0 103/mcL Invalid Interpretation Code 0.0 - 0.2 10^3/mcL AO Workflow SS Basophils/100 WBC (Bld) 0.4 % Invalid Interpretation Code 0.0 - 2.5 % AO Workflow SS Eosinophil, Absolute 0.2 103/mcL Invalid Interpretation Code 0.0 - 0.4 10^3/mcL AO Workflow SS Eosinophils/100 WBC (Bld) 4.5 % Invalid Interpretation Code 0.0 - 7.0 % AO Workflow SS Erythrocyte distribution width (RBC) [Ratio] 16.6 % Invalid Interpretation Code 11.5 - 14.5 % AO Workflow SS Hematocrit (Bld) [Volume fraction] 35.4 % Invalid Interpretation Code 37.0 - 47.0 % AO Workflow SS Hemoglobin (Bld) [Mass/Vol] 11.8 G/dL Invalid Interpretation Code 12.0 - 16.0 G/dL AO Workflow SS Lymphocyte, Absolute 1.3 103/mcL Invalid Interpretation Code 0.8 - 3.9 10^3/mcL AO Workflow SS Lymphocytes/100 WBC (Bld) 25.7 % Invalid Interpretation Code 10.0 - 50.0 % AO Workflow SS MCH (RBC) [Entitic mass] 29.1 pg Invalid Interpretation Code 27.0 - 31.2 pg AO Workflow SS MCHC 33.4 G/dL Invalid Interpretation Code 33.0 - 37.0 G/dL AO Workflow SS MCV (RBC) [Entitic vol] 87.1 fL Invalid Interpretation Code 80.0 - 94.0 fL AO Workflow SS Monocyte, Absolute 0.5 103/mcL Invalid Interpretation Code 0.2 - 1.0 10^3/mcL AO Workflow SS Monocytes/100 WBC (Bld) 10.4 % Invalid Interpretation Code 1.7 - 13.0 % AO Workflow SS Neutrophil, Absolute 2.9 103/mcL Invalid Interpretation Code 2.9 - 6.2 10^3/mcL AO Workflow SS Neutrophils/100 WBC (Bld) 59.0 % Invalid Interpretation Code 37.0 - 80.0 % AO Workflow SS Platelet mean volume (Bld) [Entitic vol] 8.4 fL Invalid Interpretation Code 7.4 - 10.4 fL AO Workflow SS Platelets (Bld) [#/Vol] 150 103/mcL Invalid Interpretation Code 130 - 400 10^3/mcL AO Workflow SS RBC (Bld) [#/Vol] 4.06 106/mcL Invalid Interpretation Code 4.20 - 5.40 10^6/mcL AO Workflow SS WBC 5.0 103/mcL Invalid Interpretation Code 4.6 - 10.8 10^3/mcL AO Workflow SS LABORATORYOrdered By: Hilda Stiles on 12-22-2021 Cholesterol [Mass/Vol] 205 mg/dL Invalid Interpretation Code 0 - 200 mg/dL AO ADM SS Cholesterol in HDL [Mass/Vol] 47 mg/dL Invalid Interpretation Code 40 - 60 mg/dL AO ADM SS Cholesterol in LDL [Mass/Vol] 129 mg/dL Invalid Interpretation Code 0 - 130 mg/dL AO ADM SS Triglyceride [Mass/Vol] 145 mg/dL Invalid Interpretation Code 0 - 150 mg/dL AO ADM SS LABORATORYOrdered By: SYSTEM SYSTEM on 12-22-2021 Monocyte distribution width Auto (Bld) [Entitic vol] Not Performed 1 *NA* (12/22/21 7:14 AM) Invalid Interpretation Code 0.00 - 20.00 AO Hematology S Comment on above: Result Comment: MDW testing performed only on adult ER patients between the ages of 18-89 years. LABORATORYOrdered By: Xena Cherry on 06-11-2021 Blood Glucose Testing Reason Routine (06/11/21 7:22 AM) [facility] Glucose [Mass/Vol] 149 mg/dL Invalid Interpretation Code 70 - 110 mg/dL [facility] LABORATORYOrdered By: Hilda Stiles on 06-11-2021 Basophil, Absolute 0.00 103/mcL Invalid Interpretation Code 0.00 - 0.19 10^3/mcL AO Auto Heme SS Basophils/100 WBC (Bld) 0.2 % Invalid Interpretation Code 0.0 - 2.5 % AO Auto Heme SS Calcium [Mass/Vol] 8.5 mg/dL Invalid Interpretation Code 8.4 - 10.2 mg/dL AO ADM SS Chloride [Moles/Vol] 103 mmol/L Invalid Interpretation Code 98 - 107 mmol/L AO ADM SS CO2 [Moles/Vol] 27 mmol/L Invalid Interpretation Code 22 - 29 mmol/L AO ADM SS Creatinine [Mass/Vol] 0.73 mg/dL Invalid Interpretation Code 0.55 - 1.02 mg/dL AO ADM SS Electrolyte Balance 10.0 mEq/L Invalid Interpretation Code AO ADM SS Eosinophil, Absolute 0.10 103/mcL Invalid Interpretation Code 0.00 - 0.40 10^3/mcL AO Auto Heme SS Eosinophils/100 WBC (Bld) 1.6 % Invalid Interpretation Code 0.0 - 7.0 % AO Auto Heme SS Erythrocyte distribution width (RBC) [Ratio] 16.5 % Invalid Interpretation Code 11.5 - 14.5 % AO Auto Heme SS Glucose [Mass/Vol] 190 mg/dL Invalid Interpretation Code 70 - 105 mg/dL AO ADM SS Hematocrit (Bld) [Volume fraction] 31.4 % Invalid Interpretation Code 37.0 - 47.0 % AO Auto Heme SS Hemoglobin (Bld) [Mass/Vol] 10.4 G/dL Invalid Interpretation Code 12.0 - 16.0 G/dL AO Auto Heme SS Lymphocyte, Absolute 0.90 103/mcL Invalid Interpretation Code 0.77 - 3.85 10^3/mcL AO Auto Heme SS Lymphocytes/100 WBC (Bld) 17.4 % Invalid Interpretation Code 10.0 - 50.0 % AO Auto Heme SS MCH (RBC) [Entitic mass] 29.5 pg Invalid Interpretation Code 27.0 - 31.2 pg AO Auto Heme SS MCHC (RBC) [Mass/Vol] 33.0 G/dL Invalid Interpretation Code 33.0 - 37.0 G/dL AO Auto Heme SS MCV (RBC) [Entitic vol] 89.4 fL Invalid Interpretation Code 80.0 - 94.0 fL AO Auto Heme SS Monocyte, Absolute 0.50 103/mcL Invalid Interpretation Code 0.15 - 1.00 10^3/mcL AO Auto Heme SS Monocytes/100 WBC (Bld) 9.7 % Invalid Interpretation Code 1.7 - 13.0 % AO Auto Heme SS Neutrophil, Absolute 3.70 103/mcL Invalid Interpretation Code 2.85 - 6.16 10^3/mcL AO Auto Heme SS Neutrophils/100 WBC (Bld) 71.1 % Invalid Interpretation Code 37.0 - 80.0 % AO Auto Heme SS Platelet mean volume (Bld) [Entitic vol] 9.4 fL Invalid Interpretation Code 7.4 - 10.4 fL AO Auto Heme SS Platelets (Bld) [#/Vol] 140 103/mcL Invalid Interpretation Code 130 - 400 10^3/mcL AO Auto Heme SS Potassium [Moles/Vol] 4.4 mmol/L Invalid Interpretation Code 3.5 - 5.1 mmol/L AO ADM SS RBC (Bld) [#/Vol] 3.51 106/mcL Invalid Interpretation Code 4.20 - 5.40 10^6/mcL AO Auto Heme SS Sodium [Moles/Vol] 140 mmol/L Invalid Interpretation Code 136 - 145 mmol/L AO ADM SS Urea nitrogen [Mass/Vol] 6 mg/dL Invalid Interpretation Code 7 - 18 mg/dL AO ADM SS Urea nitrogen/Creatinine [Mass ratio] 8 ratio Invalid Interpretation Code 7 - 27 ratio AO ADM SS WBC (Bld) [#/Vol] 5.20 103/mcL Invalid Interpretation Code 4.60 - 10.80 10^3/mcL AO Auto Heme SS LABORATORYOrdered By: SYSTEM SYSTEM on 06-11-2021 GFR 100 ml/min/1.73sqm Invalid Interpretation Code AO Chemistry S GFR Non- 83 ml/min/1.73sqm Invalid Interpretation Code AO Chemistry S LABORATORYOrdered By: Meche Ulloa on 06-10-2021 Blood Glucose Testing Reason Routine (06/10/21 9:01 PM) [facility] Glucose [Mass/Vol] 170 mg/dL Invalid Interpretation Code 70 - 110 mg/dL [facility] LABORATORYOrdered By: Ivy Lei on 06-10-2021 Glucose [Mass/Vol] 142 mg/dL Invalid Interpretation Code 70 - 110 mg/dL [facility] LABORATORYOrdered By: Namita Portillo on 06-10-2021 Blood Glucose Testing Reason Routine (06/10/21 8:42 AM) [facility] LABORATORYOrdered By: Lavern Villaseñor on 05-28-2021 Albumin BCP dye [Mass/Vol] 3.9 G/dL Invalid Interpretation Code 3.5 - 5.0 G/dL AO ADM SS Calcium [Mass/Vol] 9.6 mg/dL Invalid Interpretation Code 8.4 - 10.2 mg/dL AO ADM SS Chloride [Moles/Vol] 102 mmol/L Invalid Interpretation Code 98 - 107 mmol/L AO ADM SS CO2 [Moles/Vol] 23 mmol/L Invalid Interpretation Code 22 - 29 mmol/L AO ADM SS Creatinine [Mass/Vol] 0.69 mg/dL Invalid Interpretation Code 0.55 - 1.02 mg/dL AO ADM SS Electrolyte Balance 14.0 mEq/L Invalid Interpretation Code AO ADM SS Glucose [Mass/Vol] 126 mg/dL Invalid Interpretation Code 70 - 105 mg/dL AO ADM SS HbA1c (Bld) [Mass fraction] 7.7 % Invalid Interpretation Code 4.3 - 6.4 % AO ADM SS Potassium [Moles/Vol] 3.9 mmol/L Invalid Interpretation Code 3.5 - 5.1 mmol/L AO ADM SS Sodium [Moles/Vol] 139 mmol/L Invalid Interpretation Code 136 - 145 mmol/L AO ADM SS Urea nitrogen [Mass/Vol] 6 mg/dL Invalid Interpretation Code 7 - 18 mg/dL AO ADM SS Urea nitrogen/Creatinine [Mass ratio] 9 ratio Invalid Interpretation Code 7 - 27 ratio AO ADM SS LABORATORYOrdered By: Martha Milan on 05-28-2021 Basophil, Absolute 0.00 103/mcL Invalid Interpretation Code 0.00 - 0.19 10^3/mcL AO Auto Heme SS Basophils/100 WBC (Bld) 0.3 % Invalid Interpretation Code 0.0 - 2.5 % AO Auto Heme SS Eosinophil, Absolute 0.20 103/mcL Invalid Interpretation Code 0.00 - 0.40 10^3/mcL AO Auto Heme SS Eosinophils/100 WBC (Bld) 3.9 % Invalid Interpretation Code 0.0 - 7.0 % AO Auto Heme SS Erythrocyte distribution width (RBC) [Ratio] 15.8 % Invalid Interpretation Code 11.5 - 14.5 % AO Auto Heme SS Hematocrit (Bld) [Volume fraction] 34.4 % Invalid Interpretation Code 37.0 - 47.0 % AO Auto Heme SS Hemoglobin (Bld) [Mass/Vol] 11.5 G/dL Invalid Interpretation Code 12.0 - 16.0 G/dL AO Auto Heme SS Lymphocyte, Absolute 1.50 103/mcL Invalid Interpretation Code 0.77 - 3.85 10^3/mcL AO Auto Heme SS Lymphocytes/100 WBC (Bld) 31.9 % Invalid Interpretation Code 10.0 - 50.0 % AO Auto Heme SS MCH (RBC) [Entitic mass] 29.6 pg Invalid Interpretation Code 27.0 - 31.2 pg AO Auto Heme SS MCHC (RBC) [Mass/Vol] 33.5 G/dL Invalid Interpretation Code 33.0 - 37.0 G/dL AO Auto Heme SS MCV (RBC) [Entitic vol] 88.3 fL Invalid Interpretation Code 80.0 - 94.0 fL AO Auto Heme SS Monocyte, Absolute 0.40 103/mcL Invalid Interpretation Code 0.15 - 1.00 10^3/mcL AO Auto Heme SS Monocytes/100 WBC (Bld) 9.4 % Invalid Interpretation Code 1.7 - 13.0 % AO Auto Heme SS Neutrophil, Absolute 2.60 103/mcL Invalid Interpretation Code 2.85 - 6.16 10^3/mcL AO Auto Heme SS Neutrophils/100 WBC (Bld) 54.5 % Invalid Interpretation Code 37.0 - 80.0 % AO Auto Heme SS Platelet mean volume (Bld) [Entitic vol] 8.3 fL Invalid Interpretation Code 7.4 - 10.4 fL AO Auto Heme SS Platelets (Bld) [#/Vol] 165 103/mcL Invalid Interpretation Code 130 - 400 10^3/mcL AO Auto Heme SS RBC (Bld) [#/Vol] 3.90 106/mcL Invalid Interpretation Code 4.20 - 5.40 10^6/mcL AO Auto Heme SS WBC (Bld) [#/Vol] 4.70 103/mcL Invalid Interpretation Code 4.60 - 10.80 10^3/mcL AO Auto Heme SS LABORATORYOrdered By: SYSTEM SYSTEM on 05-28-2021 GFR 107 ml/min/1.73sqm Invalid Interpretation Code AO Chemistry S GFR Non- 88 ml/min/1.73sqm Invalid Interpretation Code AO Chemistry S BMPon 12-28-2017 Anion gap 8 mmol/L [facility] 5-16 [facility] Order Comment: Isael s: M Performed By: #### L 500.04877, L500.06998 ####[facility] [id number] [place], [place] [address]Xe# [phone] BUN/Creatinine Ratio 17 mg/mg Normal 15-24 [facility] Comment on above: Order Comment: Isael s: M Performed By: #### L 500.64645, L500.41842 ####[facility] [id number] [place], [place] [address]Sc# [phone] Calcium 9.4 mg/dL Normal 8.5-10.1 [facility] Comment on above: Order Comment: Campu s: M Performed By: #### L 500.69880, L500.66749 ####[facility] [id number] [place], [place] [address]Ad# [phone] Chloride 105 mmol/L Normal 98-107 [facility] Comment on above: Order Comment: Campu s: M Performed By: #### L 500.67440, L500.91313 ####[facility] [id number] [place], [place] [address]Ao# [phone] CO2 25 mmol/L Normal 21-32 [facility] Comment on above: Order Comment: Campu s: M Performed By: #### L 500.01974, L500.81576 ####[facility] [id number] [place] [address]Yj# [phone] Creatinine 0.778 mg/dL Normal 0.510-0.95 0 [facility] Comment on above: Order Comment: Campu s: M Result Comment: Rhona ents receiving either N-Acetylcysteine (NAC) orMetamizole prior to venipuncture, may have falsely depressedresults. Performed By: #### L 500.74184, L500.82455 ####[facility] [id number] [place], [place] [address]Ec# [phone] Glucose mass conc 140 mg/dL High 70-100 [facility] Comment on above: Order Comment: Campu s: M Result Comment: 70-1 00- Normal Fasting; 100-125 Impaired Fasting; greaterthan 126 on more than one result- Diabetes. ADA guidelines.Results may be falsely elevated after the administration ofSulfapyridine.Results may be falsely depressed after the administration ofSulfasalazine. Performed By: #### L 500.02117, L500.33323 ####[facility] [id number] [place] [address]Fm# [phone] Potassium molar conc 4.4 mmol/L Normal 3.5-5.1 [facility] Comment on above: Order Comment: Campu s: M Result Comment: Slig ht Hemolysis, Result may be falsely increased. Performed By: #### L 500.47984, L500.44137 ####[facility] [id number] [place] [address]Rt# [phone] Sodium 138 mmol/L Normal 136-145 [facility] Comment on above: Order Comment: Campu s: M Performed By: #### L 500.29709, L500.70323 ####[facility] [id number] [place] [address]Rb# [phone] Urea nitrogen 13 mg/dL Normal 7-26 [facility] Comment on above: Order Comment: Campu s: M Performed By: #### L 500.43058, L500.10768 ####[facility] [id number] [place], [place] [address]Ph# [phone] CARD.CATHon 12-28-2017 CARD.CATH [Embedded Image Not Available][facility] Patient Name: FER DUVAL [facility] Date of : [address] [address] Unit Number: [id number] Number: [id number] Catheterization Patient Status: REG SDCAttending Doctor: Jacoby Mcrae MDService Date: 12/28/17 0920Cardiac CatheterizationReferring Physician:Viri Rowland AOrdering Provider:Shiv Casasergies:Coded Allergies:PENICILLINS (Mild, HIVES 12/27/17)Summary:Procedure s performed:33703: left-heart catheterization and coronary and bypass graft angiographyIndications:R07 .9: angina exwydofuT25.10: two-vessel [place] artery coronary artery nrlfysxO39.1: history of four-vessel coronary artery bypass graft surgeryAnesthesia: local (lidocaine 2% sq) and conscious sedation (midazolam 1 mg, fentanyl 50mcg IV)Access: right common femoral artery (6F, under real-time ultrasound guidance. Commonfemoral artery located 2 - 3 cm deep to skin surface.)Findings:The left main coronary artery was engaged with a 6F JL4 catheter and is normal.The left anterior descending artery is normal. The mid-vessel just distal to the firstdiagonal branch does appear hazy but is most likely due to competing retrograde flow fromthe patent left internal mammary artery conduit. The remainder of the left anteriordescending artery and first diagonal branch are normal.The left circumflex artery is nondominant. There is a diffuse, 80-percent mid-vesselstenosis involving the origin of the first obtuse marginal branch, which has a diffuse, 50-percent proximal stenosis. There is competing flow to the first obtuse marginal branch.The second obtuse marginal branch is small and normal.The right coronary artery was engaged with a 6F JR4 catheter. The vessel is dominant.There is a focal, 90-percent proximal stenosis just distal to the first acute marginalbranch. There is a diffuse, 99-percent distal stenosis.The saphenous vein graft to the left circumflex artery was engaged with the JR4 catheter.The graft is a Y-graft and goes separately to the first and second obtuse marginalbranches. The graft is patent.The saphenous vein graft to the right coronary artery was engaged with the JR4 catheter.This appears to be a sequential graft going to the posterior descending and rightposterolateral branches. The graft is patent.The left subclavian artery was engaged with the JR4 catheter, which then was exchangedover an exchange-length wire for a 6F BRITTA catheter. The left internal mammary artery issmall but patent and goes to the mid-left anterior descending artery.Hemostasis was attempted but unsuccessful with a Perclose Proglide vascular access closuredevice due to patient body habitus.Impression:1. 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 50-percent proximal first obtusemarginal branch stenosis.(2) 90-percent proximal followed by 99-percent distal right coronary artery stenoses.2. Patent left internal mammary artery to the mid-left anterior descending artery.3. Patent saphenous vein Y-graft to the first and second obtuse marginal branches.4. Patent saphenous vein graft sequentially to the posterior descending and posterolateralbranches.5. Normal left-ventricular end-diastolic pressure (17 mm Hg).DisclaimerThis dictation was created using voice recognition software.Phonetic and/or minor grammatical errors may exist.eSign Date and TimeJacoby Mcrae MD Verified/Reviewed by 12/28/17 0928 Normal [facility] Cardiac Catheterization Normal [facility] CBCon 12-28-2017 Erythrocyte distribution width Auto Ratio (RBC) 14.4 % Normal 11-14.5 [facility] Comment on above: Order Comment: Campu s: M Performed By: #### L 200.79326 ####[facility] [id number] [place], [place] [address]Gx# [phone] Erythrocytes (RBC) 4.38 M/CU MM Normal 3.90-5.30 [facility] Comment on above: Order Comment: Campu s: M Performed By: #### L 200.70602 ####[facility] [id number] [place], [place] [address]Jf# [phone] Hematocrit (HCT) 40.6 % Normal 35.0-47.0 [facility] Comment on above: Order Comment: Campu s: M Performed By: #### L 200.30370 ####[facility] [id number] [place], [place] [address]Mp# [phone] Hemoglobin mass conc (Bld) 13.4 g/dL Normal 11.5-15.5 [facility] Comment on above: Order Comment: Campu s: M Performed By: #### L 200.06551 ####[facility] [id number] [place], [place] [address]Xx# [phone] MCHC mass conc (RBC) 33.0 g/dL Normal 32.0-36.0 [facility] Comment on above: Order Comment: Campu s: M Performed By: #### L 200.07432 ####[facility] [id number] [place], [place] [address]Yy# [phone] MCV 92.7 fL Normal 80.0-99.0 [facility] Comment on above: Order Comment: Campu s: M Performed By: #### L 200.39108 ####[facility] [id number] [place], [place] [address]Cb# [phone] NRBC 0.0 % Normal Less than 1 [facility] Comment on above: Order Comment: Campu s: M Performed By: #### L 200.47177 ####[facility] [id number] [place] [address]Tb# [phone] Platelet mean volume (PMV) 10.3 fL Normal 9.4-12.4 [facility] Comment on above: Order Comment: Campu s: M Performed By: #### L 200.36099 ####[address] [address]Jd# [phone] Platelets 201 K/CU MM Normal 150-450 [facility] Comment on above: Order Comment: Campu s: M Performed By: #### L 200.63671 ####[facility] [id number] [place] [address]Jk# [phone] WBC (Leukocytes) 7.1 K/CU MM Normal 4.5-11.0 [facility] Comment on above: Order Comment: Campu s: M Performed By: #### L 200.46795 ####[facility] [id number] [place] [address]Nt# [phone] GFR ESTon 12-28-2017 IF AMER Greater than 60 Normal [facility] Comment on above: Order Comment: Campu s: M Performed By: #### L 500.37298, L500.63683 ####[facility] [id number] [place] [address]Hv# [phone] IF non-AFR AMER Greater than 60 Normal [facility] Comment on above: Order Comment: Campu s: M Performed By: #### L 500.94589, L500.31616 ####[facility] [id number] [place] [address]Bd# [phone] Urinalysis, Office (17116)on 10-16-2009 Bilirubin Ql (U) Negative Normal Comprehe nsive [facility] Work Phone: Glucose Test strip (U) [Mass/Vol] Negative Normal [facility] Work Phone: Hemoglobin Ql (U) Negative Normal Compreh ensive [facility] Work Phone: Ketones Ql (U) Negative Normal Comprehens umer [facility] Medicine Work Phone: Leukocyte esterase Test strip Ql (U) Negative Normal [facility] Work Phone: Nitrite Ql (U) Negative Normal Comprehens umer [facility] Work Phone: pH (U) 6.0 [pH] Normal [facility] Work Phone: Protein Ql (U) Negative Normal Comprehens um[facility] Work Phone: Specific gravity (U) [Rel density] 1.025 1 Normal [facility] Work Phone: Urobilinogen (24H U) [Mass/Time] Normal Normal [facility] Work Phone: CALCIFEDIOL ([id number])Ordered B y: Management Liaison on 09-16-2009 Calcitriol [Mass/Vol] 9.0 ng/mL Abnormal 32.0-100.0 [facility] Work Phone: Comment on above: Recent studies consi rodríguez the lower limit of 32.0 ng/mL to be athreshold for optimal health.Joo PEREYRA. J Nutr. 2004;135(2):317-22. PATIENT WAS FASTINGP ERFORMED BY: [employer] [facility] [facility] [id number] CBC & PLATELETS (AUTO) (8502 [id number])Ordered By: Management Liaison on 09-16-2009 Erythrocyte distribution width (RBC) [Ratio] 14.2 % Normal 11.7-15.0 [facility] Work Phone: Comment on above: PATIENT WAS FASTINGP ERFORMED BY: [employer] [id number] Hematocrit (Bld) [Volume fraction] 38.9 % Normal 34.0-44.0 [facility] Work Phone: Comment on above: PATIENT WAS FASTINGP ERFORMED BY: [facility] [id number] [facility] [place] [id number] Hemoglobin (Bld) [Mass/Vol] 13.4 g/dL Normal 11.5-15.0 [facility] Work Phone: Comment on above: PATIENT WAS FASTINGP ERFORMED BY: [facility] [id number] [facility] [place] [id number] MCH (RBC) [Entitic mass] 32.2 pg Normal 27.0-34.0 [facility] Work Phone: Comment on above: PATIENT WAS FASTINGP ERFORMED BY: LabJohn [facility]. [facility]6[address]ose[address] RoadDuin [place] [id number] MCHC (RBC) [Mass/Vol] 34.4 g/dL Normal 32.0-36.0 [facility] Internal Medicine Work Phone: Comment on above: PATIENT WAS FASTINGP ERFORMED BY: [facility] [id number] [facility] [place] [id number] MCV (RBC) [Entitic vol] 94 fL Normal 80-98 [facility] Work Phone: Comment on above: PATIENT WAS FASTINGP ERFORMED BY: [facility] [id number] [facility] [place] [id number] Platelets (Bld) [#/Vol] 323 {x10E3/uL} Normal 140-415 [facility] Work Phone: Comment on above: PATIENT WAS FASTINGP ERFORMED BY: [facility] [id number] [facility] [place] [id number] RBC (Bld) [#/Vol] 4.15 {x10E6/uL} Normal 3.80-5.10 [facility] Internal Medicine Work Phone: Comment on above: PATIENT WAS FASTINGP ERFORMED BY: [facility] [id number] [address] [facility] [place] [id number] WBC (Bld) [#/Vol] 10.5 {x10E3/uL} Normal 4.0-10.5 [facility] [facility] Internal Medicine Work Phone: Comment on above: PATIENT WAS FASTINGP ERFORMED BY: LEDA Gabymartha Njisoh1011 [facility] [id number] Lipid Panel ([id number])Ordered B y: Management Liaison on 09-16-2009 Cholesterol [Mass/Vol] 296 mg/dL Abnormal 100-199 [facility] Work Phone: Comment on above: PATIENT WAS FASTINGP ERFORMED BY: LED[facility] Xvcfay1736 [facility] [id number] Cholesterol in HDL [Mass/Vol] 35 mg/dL Abnormal [facility] Work Phone: Comment on above: According to ATP-III Guidelines, HDL-C >59 mg/dL is considered anegative risk factor for CHD. PATIENT WAS FASTINGP ERFORMED BY: LEDA Griffin Tsflax2091 [facility] [id number] Cholesterol in LDL [Mass/Vol] 205 mg/dL Abnormal 0-99 [facility] Work Phone: Comment on above: PATIENT WAS FASTINGP ERFORMED BY: LEDA NéstorRadha DonatoYlvgyy2759 [facility] [id number] Cholesterol in LDL/Cholesterol in HDL [Mass ratio] 5.9 {ratio_units} Abnormal 0.0-3.2 [facility] Work Phone: Comment on above: PATIENT WAS FASTINGP ERFORMED BY: LEDA [facility]University [facility] Fbilua3649 [facility] [id number] Cholesterol in VLDL [Mass/Vol] 56 mg/dL Abnormal 5-40 [facility] Work Phone: Comment on above: PATIENT WAS FASTINGP ERFORMED BY: LEDA LabWymartha Mvomom8629 [facility] [id number] Triglyceride [Mass/Vol] 278 mg/dL Abnormal 0-149 [facility] Work Phone: Comment on above: PATIENT WAS FASTINGP ERFORMED BY: LEDA [facility]6370 [facility] [id number] METABOLIC PANEL, COMPREHENSI VE ([id number])Ordered By: Management Liaison on 09-16-2009 Albumin [Mass/Vol] 4.6 g/dL Normal 3.5-5.5 [facility] Internal Medicine Work Phone: Comment on above: PATIENT WAS FASTINGP ERFORMED BY: [place] [id number] [facility] [id number] Information: ADD DRAW FEE [id number] AND J0 3378 Albumin/Globulin [Mass ratio] 1.5 {ratio} Normal 1.1-2.5 [facility] Work Phone: Comment on above: PATIENT WAS FASTINGP ERFORMED BY: LEDA [address] [id number] Information: ADD DRAW FEE [id number] AND J0 3378 ALP [Catalytic activity/Vol] 103 [iU]/L Normal 25-150 [facility] Work Phone: Comment on above: PATIENT WAS FASTINGP ERFORMED BY: LEDA LabPatricia Ville 8[address]2070 [facility] [id number] Information: ADD DRAW FEE [id number] AND J0 3378 ALT [Catalytic activity/Vol] 19 [iU]/L Normal 0-40 [facility] Work Phone: Comment on above: PATIENT WAS FASTINGP ERFORMED BY: [place] [address] [facility] [id number] Information: ADD DRAW FEE [id number] AND J0 3378 AST [Catalytic activity/Vol] 23 [iU]/L Normal 0-40 [facility] Work Phone: Comment on above: PATIENT WAS FASTINGP ERFORMED BY: LabPatricia [place] 8232070 [facility] [id number] Information: ADD DRAW FEE [id number] AND J0 3378 Bilirubin [Mass/Vol] 0.2 mg/dL Normal 0.1-1.2 [facility] Internal Medicine Work Phone: Comment on above: PATIENT WAS FASTINGP ERFORMED BY: CB [facility] Ludtlk8239 [facility] [id number] Information: ADD DRAW FEE [id number] AND J0 3378 Calcium [Mass/Vol] 9.7 mg/dL Normal 8.7-10.2 [facility] Internal Medicine Work Phone: Comment on above: PATIENT WAS FASTINGP ERFORMED BY: [facility] Fifgof5539 [facility] [id number] Information: ADD DRAW FEE [id number] AND J0 3378 Chloride [Moles/Vol] 105 mmol/L Normal 97-108 [facility] Internal Medicine Work Phone: Comment on above: PATIENT WAS FASTINGP ERFORMED BY: [facility] Atgybp1320 [facility] [id number] Information: ADD DRAW FEE [id number] AND J0 3378 CO2 [Moles/Vol] 19 mmol/L Abnormal 20-32 [facility] Internal Medicine Work Phone: Comment on above: PATIENT WAS FASTINGP ERFORMED BY: [facility] Igpzea6928 [facility] [id number] Information: ADD DRAW FEE [id number] AND J0 3378 Creatinine [Mass/Vol] 0.89 mg/dL Normal 0.57-1.00 [facility] Work Phone: Comment on above: PATIENT WAS FASTINGP ERFORMED BY: [facility] Xyaggo6225 [facility] [id number] Information: ADD DRAW FEE [id number] AND J0 3378 GFR/1.73 sq M predicted among blacks MDRD (S/P/Bld) [Vol rate/Area] mL/min/{1.73_m2} Normal [facility] Work Phone: Comment on above: Note: Persistent red uction for 3 months or more in an eGFR<60 mL/min/1.73 m2 defines CKD. Patients with eGFR values>/=60 mL/min/1.73 m2 may also have CKD if evidence of persistentproteinuria is present. Additional information may be found [email or web address]. PATIENT WAS FASTINGP ERFORMED BY: LEDA [address] [id number] Information: ADD DRAW FEE [id number] AND J0 3378 GFR/1.73 sq M.predicted MDRD (S/P/Bld) [Vol rate/Area] mL/min/{1.73_m2} Normal [facility] Work Phone: Comment on above: PATIENT WAS FASTINGP ERFORMED BY: LEDA [address] [id number] Information: ADD DRAW FEE [id number] AND J0 3378 Globulin (S) [Mass/Vol] 3.1 g/dL Normal 1.5-4.5 [facility] Work Phone: Comment on above: PATIENT WAS FASTINGP ERFORMED BY: LEDA [address] [id number] Information: ADD DRAW FEE [id number] AND J0 3378 Glucose [Mass/Vol] 99 mg/dL Normal 65-99 [facility] Internal Medicine Work Phone: Comment on above: PATIENT WAS FASTINGP ERFORMED BY: LEDA [address] [id number] Information: ADD DRAW FEE [id number] AND J0 3378 Potassium [Moles/Vol] 4.3 mmol/L Normal 3.5-5.2 [facility] Work Phone: Comment on above: PATIENT WAS FASTINGP ERFORMED BY: [address] [id number] Information: ADD DRAW FEE [id number] AND J0 3378 Protein [Mass/Vol] 7.7 g/dL Normal 6.0-8.5 [facility] Internal Medicine Work Phone: Comment on above: PATIENT WAS FASTINGP ERFORMED BY: LEDA [address] [id number] Information: ADD DRAW FEE [id number] AND J0 3378 Sodium [Moles/Vol] 139 mmol/L Normal 135-145 Compre [facility] Internal Medicine Work Phone: Comment on above: PATIENT WAS FASTINGP ERFORMED BY: LEDA LabComartha AlstonDkxptu2504 [facility] [id number] Information: ADD DRAW FEE [id number] AND J0 3378 Urea nitrogen [Mass/Vol] 10 mg/dL Normal 5-26 [facility] Work Phone: Comment on above: PATIENT WAS FASTINGP ERFORMED BY: LEDA [facility] Uadzrj1661 [facility] [id number] Information: ADD DRAW FEE [id number] AND J0 3378 Urea nitrogen/Creatinine [Mass ratio] 11 mg/mg Normal 8-27 [facility] Work Phone: Comment on above: PATIENT WAS FASTINGP ERFORMED BY: LEDA LabComartha DonatoBmsvea3985 [facility] [id number] Information: ADD DRAW FEE [id number] AND J0 3378 SED RATE ERYTHROCYTE ([id number]) Ordered By: Management Liaison on 09-16-2009 ESR (Bld) [Velocity] 19 mm/h Normal 0-20 Comp rehensive Internal Medicine Work Phone: Comment on above: PATIENT WAS FASTINGP ERFORMED BY: LEDA LabComartha Kbwcur8915 [facility] [id number] TSH ([id number])Ordered By: [email or web address] m Senior Application Software Engineer on 09-16-2009 TSH Qn 0.727 {uIU/mL} Normal 0.450-4.50 0 [facility] Work Phone: Comment on above: PATIENT WAS FASTINGP ERFORMED BY: LEDA [facility] Nzdzxo7700 [facility] [id number] URINALYSIS ([id number])Ordered By : Management Liaison on 09-16-2009 Appearance (U) Clear Normal Comprehens umer Internal Medicine Work Phone: Comment on above: PATIENT WAS FASTINGP ERFORMED BY: LEDA [facility] Uywhqz2519 [facility] [id number] Bilirubin Ql (U) Negative Normal Comprehe nsive Internal Medicine Work Phone: Comment on above: PATIENT WAS FASTINGP ERFORMED BY: LEDA Donatolin[address] [place] [id number] Color (U) Yellow Normal [facility] Work Phone: Comment on above: PATIENT WAS FASTINGP ERFORMED BY: LEDA Donatolin[address]ublin [place] [id number] Glucose Ql (U) Negative Normal Comprehens umer Internal Medicine Work Phone: Comment on above: PATIENT WAS FASTINGP ERFORMED BY: LEDA Donatolin[address] [place] [id number] Hemoglobin Ql (U) Negative Normal Compreh ensive Internal Medicine Work Phone: Comment on above: PATIENT WAS FASTINGP ERFORMED BY: LEDA Donatolin[address] [place] [id number] Ketones Ql (U) Negative Normal Comprehens umer Internal Medicine Work Phone: Comment on above: PATIENT WAS FASTINGP ERFORMED BY: LEDA Donatolin[address] [place] [id number] Leukocyte esterase Test strip Ql (U) 1+ Abnormal [facility] Work Phone: Comment on above: PATIENT WAS FASTINGP ERFORMED BY: LEDA Alston[address] [place] [id number] Microscopic observation LM Nom (Urine sed) See below: Normal [facility] Work Phone: Comment on above: PATIENT WAS FASTINGP ERFORMED BY: LEDA Donatolin[address] [place] [id number] Nitrite Ql (U) Negative Normal Comprehens umer Internal Medicine Work Phone: Comment on above: PATIENT WAS FASTINGP ERFORMED BY: LEDA Donatolin[address] [place] [id number] pH (U) 5.5 [pH] Normal 5.0-7.5 [facility] Work Phone: Comment on above: PATIENT WAS FASTINGP ERFORMED BY: [facility]6370 [facility] [id number] Protein Ql (U) Negative Normal Comprehens umer Internal Medicine Work Phone: Comment on above: PATIENT WAS FASTINGP ERFORMED BY: LEDA [facility]6370 [facility] [id number] Specific gravity (U) [Rel density] 1.023 1 Normal 1.005-1.03 0 [facility] Work Phone: Comment on above: PATIENT WAS FASTINGP ERFORMED BY: [facility]6370 [facility] [id number] Urobilinogen Test strip (U) [Mass/Vol] 0.2 mg/dL Normal 0.0-1.9 Comprehensi ve Internal Medicine Work Phone: Comment on above: PATIENT WAS FASTINGP ERFORMED BY: [facility]6370 [facility] [id number] VITAMIN B-12 (CYANOCOBALAMIN ) ([id number])Ordered By: Management Liaison on 09-16-2009 Cobalamin (Vitamin B12) [Mass/Vol] 408 pg/mL Normal 211-911 [facility] Work Phone: Comment on above: Effective September, Vitamin B12 will bechanging to the [facility] [employer] [facility] ECLIA methodology. Thereference interval will be changing to:211 - 946 pg/mL PATIENT WAS FASTINGP ERFORMED BY: [facility]6370 [facility] [id number] Vital Signs Date Time Vital Sign Value Performing Clinician Facility 01-17-2025 16:21-0400 Body weight 96.2 kg ROSARIO WALTERS GARAGEMAN-CLIENT TECHNICAL PROFESSIONAL [facility] 09-13-2024 16:23-0400 Diastolic Blood Pressure Non-Invasive 52 mm[Hg] ROSARIO WALTERS GARAGEMAN-CLIENT TECHNICAL PROFESSIONAL [facility] 09-13-2024 16:23-0400 Systolic Blood Pressure Non-Invasive 137 mm[Hg] ROSARIO WALTERS GARAGEMAN-CLIENT TECHNICAL PROFESSIONAL [facility] 06-15-2024 16:38-0500 Body weight 95.6 kg ROSARIO SELENA GARAGEMAN-CLIENT TECHNICAL PROFESSIONAL [facility] 03-31-2024 17:18-0400 Diastolic Blood Pressure Non-Invasive 70 mm[Hg] HERB DERAS MD [facility] 03-31-2024 17:18-0400 Heart rate 74 /min HERB DERAS MD [facility] 03-31-2024 17:18-0400 Respiratory rate 18 /min HERB DERAS MD [facility] 03-31-2024 17:18-0400 Systolic Blood Pressure Non-Invasive 138 mm[Hg] HERB DERAS MD [facility] 03-31-2024 13:38-0400 Blood Pressure Location HERB DERAS MD [facility] 03-31-2024 13:38-0400 Blood Pressure Method HERB DERAS MD [facility] 03-31-2024 13:38-0400 Body temperature 97.7 [degF] HERB DERAS MD [facility] 03-31-2024 13:38-0400 Body weight 98.1 kg HERB DERAS MD [facility] 03-31-2024 13:38-0400 Diastolic Blood Pressure Non-Invasive 74 mm[Hg] HERB DERAS MD [facility] 03-31-2024 13:38-0400 Heart rate 78 /min HERB DERAS MD [facility] 03-31-2024 13:38-0400 Respiratory rate 18 /min HERB DERAS MD [facility] 03-31-2024 13:38-0400 Systolic Blood Pressure Non-Invasive 147 mm[Hg] HERB DERAS MD [facility] 03-09-2024 16:10-0400 Body weight 98.5 kg ROSARIO WILKSMER GARAGEMAN-CLIENT TECHNICAL PROFESSIONAL [facility] 03-09-2024 16:10-0400 Diastolic Blood Pressure Non-Invasive 66 mm[Hg] ROSARIO SELENA GARAGEMAN-CLIENT TECHNICAL PROFESSIONAL [facility] 03-09-2024 16:10-0400 Systolic Blood Pressure Non-Invasive 141 mm[Hg] ROSARIO SELENA GARAGEMAN-CLIENT TECHNICAL PROFESSIONAL [facility] 12-26-2022 16:52-0400 Body height 165 cm NATALIE FOX MD [facility] 12-26-2022 16:52-0400 Body temperature 98.24 [degF] NATALIE FOX MD [facility] 12-26-2022 16:52-0400 Body weight 95.5 kg NATALIE FOX MD [facility] 12-26-2022 16:52-0400 Diastolic Blood Pressure Non-Invasive 79 1 NATALIE FOX MD [facility] 12-26-2022 16:52-0400 Heart rate 93 /min NATALIE FOX MD [facility] 12-26-2022 16:52-0400 Respiratory rate 18 /min NATALIE FOX MD [facility] 12-26-2022 16:52-0400 Systolic Blood Pressure Non-Invasive 175 1 NATALIE FOX MD [facility] 04-23-2022 15:22-0400 Body height 162.56 cm CUPOLA PATCHER HELPER-C Rosario Walters CUPOLA PATCHER HELPER Work Phone: [facility] Work Phone: 04-23-2022 15:22-0400 Body mass index (BMI) [Ratio] 38.8 kg/m2 CUPOLA PATCHER HELPER-C Rosario Wilksmer CUPOLA PATCHER HELPER Work Phone: [facility] Work Phone: 04-23-2022 15:22-0400 Body weight 102.73 kg CUPOLA PATCHER HELPER-C Rosario Wilksmer CUPOLA PATCHER HELPER Work Phone: [facility] Work Phone: 04-23-2022 15:22-0400 Diastolic blood pressure 60 mm[Hg] CUPOLA PATCHER HELPER-C Rosario Selena CUPOLA PATCHER HELPER Work Phone: [facility] Work Phone: 04-23-2022 15:22-0400 Heart rate 96 /min CUPOLA PATCHER HELPER-C Rosario Selena CUPOLA PATCHER HELPER Work Phone: [facility] Work Phone: 04-23-2022 15:22-0400 Respiratory rate 16 /min CUPOLA PATCHER HELPER-C Rosario Playas CUPOLA PATCHER HELPER Work Phone: [facility] Work Phone: 04-23-2022 15:22-0400 Systolic blood pressure 140 mm[Hg] CUPOLA PATCHER HELPER-C Rosario Playas CUPOLA PATCHER HELPER Work Phone: [facility] Work Phone: 06-11-2021 12:33-0500 Diastolic blood pressure 64 mm[Hg] DR MAXIMUS GONZÁLES MD [facility] 06-11-2021 12:33-0500 Systolic blood pressure 99 mm[Hg] DR MAXIMUS GONZÁLES MD [facility] 06-11-2021 11:05-0500 Body temperature 98.6 [degF] DR MAXIMUS GONZÁLES MD [facility] 06-11-2021 11:05-0500 Diastolic blood pressure 52 mm[Hg] DR MAXIMUS GONZÁLES MD [facility] 06-11-2021 11:05-0500 Heart rate 88 /min DR MAXIMUS GONZÁLES MD [facility] 06-11-2021 11:05-0500 Mean blood pressure 63 mm[Hg] DR MAXIMUS GONZÁLES MD [facility] 06-11-2021 11:05-0500 Reason For Taking VItal Signs DR MAXIMUS GONZÁLES MD [facility] 06-11-2021 11:05-0500 Respiratory rate 16 /min DR MAXIMUS GONZÁLES MD [facility] 06-11-2021 11:05-0500 Systolic blood pressure 86 mm[Hg] DR MAXIMUS GONZÁLES MD [facility] 06-11-2021 07:20-0500 Body temperature 98.06 [degF] DR MAXIMUS GONZÁLES MD [facility] 06-11-2021 07:20-0500 Diastolic blood pressure 64 mm[Hg] DR MAXIMUS GONZÁLES MD [facility] 06-11-2021 07:20-0500 Heart rate 83 /min DR MAXIMUS GONZÁLES MD [facility] 06-11-2021 07:20-0500 Mean blood pressure 79 mm[Hg] DR MAXIMUS GONZÁLES MD [facility] 06-11-2021 07:20-0500 Reason For Taking VItal Signs DR MAXIMUS GONZÁLES MD [facility] 06-11-2021 07:20-0500 Respiratory rate 16 /min DR MAXIMUS GONZÁLES MD [facility] 06-11-2021 07:20-0500 Systolic blood pressure 109 mm[Hg] DR MAXIMUS GONZÁLES MD [facility] 06-11-2021 04:01-0500 Body temperature 98.06 [degF] DR MAXIMUS GONZÁLES MD [facility] 06-11-2021 04:01-0500 Heart rate 82 /min DR MAXIMUS GONZÁLES MD [facility] 06-11-2021 04:01-0500 Mean blood pressure 69 mm[Hg] DR MAXIMUS GONZÁLES MD [facility] 06-11-2021 04:01-0500 Reason For Taking VItal Signs DR MAXIMUS GONZÁLES MD [facility] 06-11-2021 04:01-0500 Respiratory rate 16 /min DR MAXIMUS GONZÁLES MD [facility] 06-11-2021 00:47-0500 Heart rate 84 /min DR MAXIMUS GONZÁLES MD [facility] 06-10-2021 13:32-0500 Body height 162.[address] MAXIMUS GONZÁLES MD [facility] 06-10-2021 13:32-0500 Body weight [address] MAXIMUS GONZÁLES MD [facility] 06-10-2021 13:32-0500 Body weight 37.84 kg/m2 DR MAXIMUS GONZÁLES MD [facility] 06-10-2021 12:51-0500 Diastolic Blood Pressure NBP [address] MAXIMUS GONZÁLES MD [facility] 06-10-2021 12:51-0500 Systolic Blood Pressure NBP [address] MAXIMUS GONZÁLES MD [facility] 06-10-2021 12:26-0500 Diastolic Blood Pressure NBP [address] MAXIMUS GONZÁLES MD [facility] 06-10-2021 12:26-0500 Systolic Blood Pressure NBP [address] MAXIMUS GONZÁLES MD [facility] 06-10-2021 12:23-0500 Diastolic Blood Pressure NBP [address] MAXIMUS GONZÁLES MD [facility] 06-10-2021 12:23-0500 Systolic Blood Pressure NBP [address] MAXIMUS GONZÁLES MD [facility] 06-10-2021 11:49-0500 Body temperature 96.98 [degF] DR MAXIMUS GONZÁLES MD [facility] 06-10-2021 11:30-0500 Body temperature 96.8 [degF] DR MAXIMUS GONZÁLES MD [facility] 06-10-2021 11:15-0500 Body temperature 96.8 [degF] DR MAXIMUS GONZÁLES MD [facility] 06-10-2021 09:33-0500 Heart rate 94 /min DR MAXIMUS GONZÁLES MD [facility] 06-10-2021 09:27-0500 Heart rate 94 /min DR MAXIMUS GONZÁLES MD [facility] 06-10-2021 08:03-0500 Body height 162.[address] MAXIMUS GONZÁLES MD [facility] 06-10-2021 08:03-0500 Body temperature 98.24 [degF] DR MAXIMUS GONZÁLES MD [facility] 06-10-2021 08:03-0500 Body weight [address] MAXIMUS GONZÁLES MD [facility] 06-10-2021 08:03-0500 Heart rate 107 /min DR MAXIMUS GONZÁLES MD [facility] 05-28-2021 11:18-0500 Body height 162.[address] MAXIMUS GONZÁLES MD [facility] 05-28-2021 11:18-0500 Body weight [address] MAXIMUS GONZÁLES MD [facility] 04-24-2019 14:05-0400 BMI (Body Mass Index) 39.8 kg/m2 [facility] Work [facility]: 04-24-2019 14:05-0400 Body Temperature 97.6 [degF] [facility] Internal Medicine Work Phone: Comment on above: Method: Temporal 04-24-2019 14:05-0400 Body weight 104.35 kg [facility] Internal Medicine Work Phone: 04-24-2019 14:05-0400 BP Diastolic 78 mm[Hg] Jael [facility] Internal Medicine Work Phone: Comment on above: Patient Position: Sitting; Cuff Location : Left Arm; Cuff Size: Standard 04-24-2019 14:05-0400 BP Systolic 138 mm[Hg] [facility] Work Phone: Comment on above: Patient Position: Sitting; Cuff Location : Left Arm; Cuff Size: Standard 04-24-2019 14:05-0400 BSA (Body Surface Area) 2.07 m2 Jael Chapa Internal Medicine Work Phone: 04-24-2019 14:05-0400 Height 161.93 cm Jael Dietz [facility] Internal Medicine Work Phone: 04-24-2019 14:05-0400 Pulse (Heart Rate) 100 /min Jael Dietz [facility] Internal Medicine Work Phone: Comment on above: Pattern: Regular 04-24-2019 14:05-0400 Pulse Oximetry 95 % Jael Dietz [facility] Internal Medicine Work Phone: Comment on above: Room air 04-24-2019 14:05-0400 Respiratory Rate 19 /min Jael Dietz [facility] Internal Medicine Work Phone: Comment on above: Pattern: Unlabored 03-27-2013 13:06-0400 BMI (Body Mass Index) 37.55 kg/m2 Jael Dietz [facility] Internal Medicine Work Phone: 03-27-2013 13:06-0400 Body Temperature 97.6 [degF] Jael Dietz [facility] Internal Medicine Work Phone: Comment on above: Method: Oral 03-27-2013 13:06-0400 Body weight 96.16 kg Jael Dietz [facility] Internal Medicine Work Phone: 03-27-2013 13:06-0400 BP Diastolic 80 mm[Hg] Jael Dietz [facility] Internal Medicine Work Phone: Comment on above: Patient Position: Sitting; Cuff Location : Left Arm; Cuff Size: Standard 03-27-2013 13:06-0400 BP Systolic 120 mm[Hg] Jael Dietz [facility] Internal Medicine Work Phone: Comment on above: Patient Position: Sitting; Cuff Location : Left Arm; Cuff Size: Standard 03-27-2013 13:06-0400 BSA (Body Surface Area) 1.98 m2 Jael Dietz [facility] Internal Medicine Work Phone: 03-27-2013 13:06-0400 Height 160.02 cm Jael Dietz [facility] Internal Medicine Work Phone: 03-27-2013 13:06-0400 Pulse (Heart Rate) 74 /min Jael Dietz [facility] Internal Medicine Work Phone: Comment on above: Pattern: Regular 03-27-2013 13:06-0400 Respiratory Rate 20 /min Jael Dietz [facility] Internal Medicine Work Phone: Comment on above: Pattern: Unlabored 02-15-2012 08:08-0400 BMI (Body Mass Index) 35.44 kg/m2 Jael Dietz [facility] Internal Medicine Work Phone: 02-15-2012 08:08-0400 Body Temperature 98 [degF] Jael Dietz [facility] Internal Medicine Work Phone: Comment on above: Method: Oral 02-15-2012 08:08-0400 Body weight 90.75 kg Jael Dietz [facility] Internal Medicine Work Phone: 02-15-2012 08:08-0400 BP Diastolic 80 mm[Hg] Jael Dietz [facility] Internal Medicine Work Phone: Comment on above: Patient Position: Sitting; Cuff Location : Left Arm; Cuff Size: Standard 02-15-2012 08:08-0400 BP Systolic 132 mm[Hg] Jael Dietz [facility] Internal Medicine Work Phone: Comment on above: Patient Position: Sitting; Cuff Location : Left Arm; Cuff Size: Standard 02-15-2012 08:08-0400 BSA (Body Surface Area) 1.93 m2 Jael Dietz [facility] Internal Medicine Work Phone: 02-15-2012 08:08-0400 Height 160.02 cm Jael Dietz [facility] Internal Medicine Work Phone: 02-15-2012 08:08-0400 Pulse (Heart Rate) 82 /min Jael Dietz [facility] Internal Medicine Work Phone: Comment on above: Pattern: Regular 02-15-2012 08:08-0400 Respiratory Rate 18 /min Jael Dietz [facility] Internal Medicine Work Phone: 11-04-2011 10:43-0400 Body Temperature 98.6 [degF] Jael Dietz [facility] Internal Medicine Work Phone: 11-04-2011 10:43-0400 BP Diastolic 80 mm[Hg] Jael Dietz [facility] Internal Medicine Work Phone: Comment on above: Patient Position: Sitting; Cuff Location : Left Arm; Cuff Size: Large 11-04-2011 10:43-0400 BP Systolic 116 mm[Hg] Jael Dietz [facility] Internal Medicine Work Phone: Comment on above: Patient Position: Sitting; Cuff Location : Left Arm; Cuff Size: Large 11-04-2011 10:43-0400 Pulse (Heart Rate) 96 /min Jael Dietz [facility] Internal Medicine Work Phone: Comment on above: Pattern: Regular 11-04-2011 10:43-0400 Respiratory Rate 18 /min Jael Dietz [facility] Internal Medicine Work Phone: Comment on above: Pattern: Unlabored 07-04-2010 14:17-0500 Body Temperature 97.7 [degF] Jael Dietz [facility] Internal Medicine Work Phone: Comment on above: Method: Oral 07-04-2010 14:17-0500 Body weight 90.75 kg Jael Dietz [facility] Internal Medicine Work Phone: 07-04-2010 14:17-0500 BP Diastolic 74 mm[Hg] Jael Dietz [facility] Internal Medicine Work Phone: Comment on above: Patient Position: Sitting; Cuff Location : Left Arm; Cuff Size: Standard 07-04-2010 14:17-0500 BP Systolic 128 mm[Hg] Jael Dietz [facility] Internal Medicine Work Phone: Comment on above: Patient Position: Sitting; Cuff Location : Left Arm; Cuff Size: Standard 07-04-2010 14:17-0500 Pulse (Heart Rate) 82 /min Jael Dietz [facility] Internal Medicine Work Phone: Comment on above: Pattern: Regular 07-04-2010 14:17-0500 Respiratory Rate 18 /min [facility] Work Phone: Comment on above: Pattern: Unlabored 10-16-2009 15:38-0400 Body Temperature 98.2 [degF] Jael Dietz [facility] Internal Medicine Work Phone: Comment on above: Method: Oral 10-16-2009 15:38-0400 Body weight 90.75 kg Jael Dietz [facility] Internal Medicine Work Phone: 10-16-2009 15:38-0400 BP Diastolic 74 mm[Hg] Jael Dietz [facility] Internal Medicine Work Phone: Comment on above: Patient Position: Sitting; Cuff Location : Left Arm; Cuff Size: Standard 10-16-2009 15:38-0400 BP Systolic 134 mm[Hg] Jael Dietz [facility] Internal Medicine Work Phone: Comment on above: Patient Position: Sitting; Cuff Location : Left Arm; Cuff Size: Standard 10-16-2009 15:38-0400 Pulse (Heart Rate) 86 /min Jael Dietz [facility] Internal Medicine Work Phone: Comment on above: Pattern: Regular 10-16-2009 15:38-0400 Respiratory Rate 17 /min Jael Dietz [facility] Internal Medicine Work Phone: Comment on above: Pattern: Unlabored 09-20-2009 10:37-0400 Body Temperature 97.8 [degF] Jael Dietz [facility] Internal Medicine Work Phone: Comment on above: Method: Oral 09-20-2009 10:37-0400 BP Diastolic 68 mm[Hg] [facility] Work Phone: Comment on above: Patient Position: Sitting; Cuff Location : Left Arm; Cuff Size: Standard 09-20-2009 10:37-0400 BP Systolic 126 mm[Hg] Jael Dietz [facility] Internal Medicine Work Phone: Comment on above: Patient Position: Sitting; Cuff Location : Left Arm; Cuff Size: Standard 09-20-2009 10:37-0400 Pulse (Heart Rate) 88 /min [facility] Work Phone: Comment on above: Pattern: Regular 09-20-2009 10:37-0400 Respiratory Rate 17 /min Jael Zhouesa [facility] Work Phone: Comment on above: Pattern: Unlabored 09-16-2009 10:20-0400 BP Diastolic 64 mm[Hg] Jael Dietz [facility] Internal Medicine Work Phone: Comment on above: Patient Position: Sitting; Cuff Location : Left Arm; Cuff Size: Large 09-16-2009 10:20-0400 BP Systolic 112 mm[Hg] Jael Dietz [facility] Internal Medicine Work Phone: Comment on above: Patient Position: Sitting; Cuff Location : Left Arm; Cuff Size: Large 09-16-2009 10:20-0400 Pulse (Heart Rate) 100 /min Jael Dietz [facility] Internal Medicine Work Phone: Comment on above: Pattern: Regular 09-16-2009 10:20-0400 Respiratory Rate 16 /min Jael Dietz [facility] Internal Medicine Work Phone: Comment on above: Pattern: Unlabored Encounters Encounter Date Encounter Type Care Provider Facility Start: 05-02-2025 End: 05-06-2025 ambulatory ROSARIO WALTERS [facility] Start: 05-02-2025 End: 05-06-2025 Outreach Lab ROSARIO WALTERS GARAGEMAN-CLIENT TECHNICAL PROFESSIONAL [facility] Start: 04-27-2025 End: 04-27-2025 ambulatory ROSARIO WALTERS [facility] Start: 04-27-2025 End: 04-27-2025 Patient encounter procedure ROSARIO WALTERS GARAGEMAN-CLIENT TECHNICAL PROFESSIONAL [facility] Start: 04-25-2025 End: 04-29-2025 ambulatory ROSARIO WALTERS [facility] Start: 04-25-2025 End: 04-29-2025 Outreach Lab ROSARIO WALTERS GARAGEMAN-CLIENT TECHNICAL PROFESSIONAL [facility] Start: 04-20-2025 End: 04-20-2025 ambulatory Rosario Walters [employer] HEL[employer] Facility:[facility] Start: 04-18-2025 ambulatory ROSARIO WALTERS Facility :[facility] Start: 03-17-2025 End: 03-17-2025 ambulatory CHUY MATHEWAMANDEEPDEON GARAGEMAN-CLIENT TECHNICAL PROFESSIONAL Facility:[facility] Start: 03-17-2025 End: 03-17-2025 Patient encounter procedure CHUY DE LA PAZ GARAGEMAN-CLIENT TECHNICAL PROFESSIONAL [facility] Start: 01-31-2025 End: 01-31-2025 ambulatory MARA DYLAN GARAGEMAN-CLIENT TECHNICAL PROFESSIONAL Facility:[facility] Start: 01-31-2025 End: 01-31-2025 Patient encounter procedure MARA RICHARDSON GARAGEMAN-CLIENT TECHNICAL PROFESSIONAL [facility] Start: 01-29-2025 End: 01-29-2025 Emergency department patient visit JANES ESTRADA [facility] Start: 01-26-2025 End: 01-28-2025 ambulatory ILEANA GILBERT MD Facility:A Start: 01-26-2025 End: 01-28-2025 Observation ILEANA GILBERT MD [facility] Start: 01-23-2025 End: 01-23-2025 Admission to establishment ILEANA GILBERT MD [facility] Start: 01-23-2025 End: 01-23-2025 ambulatory ROSARIO WALTERS GARAGEMAN-CLIENT TECHNICAL PROFESSIONAL Facility:A Start: 01-19-2025 End: 01-19-2025 ambulatory MARA CEJEANNIE GARAGEMAN-CLIENT TECHNICAL PROFESSIONAL Facility:[facility] Start: 01-19-2025 End: 01-19-2025 Patient encounter procedure MARA RICHARDSON GARAGEMAN-CLIENT TECHNICAL PROFESSIONAL [facility] Start: 01-18-2025 ambulatory ROSARIO WALTERS Facility :[facility] Start: 01-18-2025 ambulatory ROSARIO WALTERS Facility :[facility] Start: 01-17-2025 End: 04-18-2025 ambulatory ROSARIO WALTERS [facility] Start: 01-17-2025 End: 04-18-2025 OTHER THERAPY ROSARIOJACOB WILKSMER GARAGEMAN-CLIENT TECHNICAL PROFESSIONAL [facility] Start: 12-28-2024 End: 12-28-2024 ambulatory ROSARIO WALTERS [facility] Start: 12-28-2024 End: 12-28-2024 Patient encounter procedure ILEANA GILBERT MD [facility] Start: 12-21-2024 End: 12-21-2024 ambulatory ILEANA GILBERT MD Facility[facility] Start: 12-21-2024 End: 12-21-2024 Patient encounter procedure ILEANA GILBERT MD [facility] Start: 11-08-2024 ambulatory Zeinab Abel Facility :[facility] Start: 11-08-2024 End: 11-08-2024 ambulatory Zeinab Abel Facility:[facility] Start: 09-12-2024 End: 09-12-2024 ambulatory ROSARIO WALTERS [facility] Start: 08-25-2024 End: 08-25-2024 ambulatory ROSARIO WALTERS [facility] Start: 08-25-2024 End: 08-25-[address] SOY CRUMP MD [facility] Start: 08-16-2024 End: 08-16-2024 ambulatory AIADN NASH Facility:[facility] Start: 08-16-2024 End: 08-16-2024 ambulatory AIDAN NASH Facility:[facility] Start: 08-16-2024 End: 08-16-2024 Subsequent hospital visit by physician [facility] (I-Stat) Work Phone: Cat Scan Comment on above: Gross hematuria [R31 .0] Start: 07-22-2024 End: 07-22-2024 ambulatory ROSARIO SELENA [facility] Start: 07-22-2024 End: 07-22-2024 Patient encounter procedure ROSARIO WALTERS GARAGEMAN-CLIENT TECHNICAL PROFESSIONAL [facility] Start: 07-06-2024 ambulatory Aidan Nash Faci lity:[facility] Start: 05-22-2024 End: 05-22-2024 ambulatory ROSARIO WALTERS [facility] Start: 05-22-2024 End: 05-22-[address] SOY CRUMP MD [facility] Start: 05-22-2024 End: 05-22-2024 ambulatory Rosario Walters [employer] HELPER Facility:[facility] Start: 05-01-2024 ambulatory Rosario Walters [employer]ER HELPER Facil ity:[facility] Start: 04-06-2024 End: 04-10-2024 Outreach Lab ROSARIO WALTERS GARAGEMAN-CLIENT TECHNICAL PROFESSIONAL [facility] Start: 03-31-2024 End: 03-31-2024 Emergency department patient visit HERB DERAS MD [facility] Start: 03-08-2024 End: 03-08-2024 ambulatory ROSARIO WALTERS Facility:[facility] Start: 03-08-2024 End: 03-08-2024 Subsequent hospital visit by physician [facility] (I-Stat/1.5t) Work Phone: Radiology Start: 02-07-2024 ambulatory ROSARIO WILKSM ER GARAGEMAN-CLIENT TECHNICAL PROFESSIONAL Facility:[facility] Start: 12-02-2023 ambulatory ROSARIO WILKSM ER GARAGEMAN-CLIENT TECHNICAL PROFESSIONAL Facility:[facility] Start: 12-02-2023 End: 12-02-2023 ambulatory SYLVIE FUNES MD Facility:[facility] Start: 12-02-2023 End: 12-02-[address] DAVID NOVAK MD [facility] Start: 11-12-2023 End: 11-12-2023 ambulatory ROSARIOJACOB WALTERS GARAGEMAN-CLIENT TECHNICAL PROFESSIONAL Facility:[facility] Start: 11-09-2023 End: 11-09-2023 ambulatory ROSARIOJACOB WALTERS GARAGEMAN-CLIENT TECHNICAL PROFESSIONAL Facility:[facility] Start: 11-09-2023 End: 11-09-2023 Patient encounter procedure ROSARIO Case WALTERS GARAGEMAN-CLIENT TECHNICAL PROFESSIONAL [facility] Start: 09-13-2023 End: 09-13-2023 ambulatory SYLVIE FUNES MD Facility:[facility] Start: 09-13-2023 End: 09-13-2023 Patient encounter procedure SYLVIE FUNES MD [facility] Start: 09-10-2023 End: 09-10-2023 ambulatory SYLVIE FUNES MD Facility:A Start: 09-10-2023 End: 09-10-2023 Patient encounter procedure SYLVIE FUNES MD [facility] Start: 05-26-2023 End: 05-26-2023 ambulatory SYLVIE FUNES MD Facility:A Start: 05-26-2023 End: 05-26-2023 Patient encounter procedure SYLVIE FUNES MD [facility] Start: 05-18-2023 End: 05-22-2023 ambulatory ROSARIO WALTERS GARAGEMAN-CLIENT TECHNICAL PROFESSIONAL Facility:[facility] Start: 05-18-2023 End: 05-22-2023 Outreach Lab ROSARIO Willoughby SELENA GARAGEMAN-CLIENT TECHNICAL PROFESSIONAL [facility] Start: 04-30-2023 End: 04-30-2023 ambulatory ROSARIO WALTERS GARAGEMAN-CLIENT TECHNICAL PROFESSIONAL Facility:[facility] Start: 03-26-2023 End: 03-26-2023 ambulatory ROSARIO WALTERS GARAGEMAN-CLIENT TECHNICAL PROFESSIONAL Facility:[facility] Start: 03-26-2023 End: 03-26-2023 Patient encounter procedure ROSARIO WALTERS GARAGEMAN-CLIENT TECHNICAL PROFESSIONAL [facility] Start: 03-09-2023 End: 03-13-2023 ambulatory ROSARIO WALTERS GARAGEMAN-CLIENT TECHNICAL PROFESSIONAL Facility:[facility] Start: 12-26-2022 End: 12-26-2022 Emergency department patient visit NATALIE FOX MD [facility] Start: 06-17-2022 Non-patient / Non-visit [employer]-C Henrik Walters [employer] PATCHER HELPER Work Phone: [facility] Start: 06-17-2022 Non-patient / Non-visit [employer] P[employer] HELPER-C Henrik Walters [employer]OLA PATCHER HELPER Work Phone: [facility] Start: 06-17-2022 End: 06-17-2022 ambulatory [employer] PATCHER HELPER-C Rosario Walters [employer] PATCHER HELPER Work Phone: [facility] Work Phone: Start: 06-17-2022 End: 06-17-2022 Patient encounter procedure [employer] PATCHER HELPER-C Rosario Walters [employer]UPOLA PATCHER HELPER Work Phone: [facility] Start: 04-23-2022 End: 04-23-2022 Patient encounter procedure [employer] PATCHER HELPER-C Rosario Walters [employer] PATCHER HELPER Work Phone: [facility] Start: 04-15-2022 Non-patient / Non-visit [employer] P[employer]ER HELPER-C Henrik Walters [employer] PATCHER HELPER Work Phone: [facility] Start: 12-22-2021 End: 12-22-2021 Patient encounter procedure TONA ESCOBAR GARAGEMAN-CLIENT TECHNICAL PROFESSIONAL [facility] Start: 12-08-2021 End: 12-08-2021 Patient encounter procedure TONA ESCOBAR GARAGEMAN-CLIENT TECHNICAL PROFESSIONAL [facility] Start: 06-12-2021 End: 10-03-2021 Physical therapy management TONA GONZALEZ PA-C [facility] Start: 06-10-2021 End: 06-11-[address] MAXIMUS GONZÁLES MD [facility] Start: 05-28-2021 End: 05-28-[address] MAXIMUS GONZÁLES MD [facility] Start: 05-28-2021 End: 05-28-[address] MAXIMUS GONZÁLES MD [facility] Start: 04-24-2019 End: 04-24-2019 Office outpatient visit 10 minutes Jael Chapa Internal Medicine Start: 12-28-2017 Evaluation and management of inpatient Jacoby Mcrae Facility:[facility] Start: 04-26-2014 End: 04-27-2014 Ambulatory ROMULO STEWART Facility:[facility] Start: 03-27-2013 End: 03-27-2013 Patient encounter procedure Jael Chapa Internal Medicine Start: 02-15-2012 End: 02-15-2012 Office outpatient visit 15 minutes Jael Chapa Internal Medicine Start: 11-04-2011 End: 11-05-2011 Patient encounter procedure Jael Chapa Internal Medicine Start: 07-04-2010 End: 07-15-2010 Error Encounter Jael Chapa Pattern Layout Worker al Medicine Start: 07-04-2010 End: 07-04-2010 Office outpatient visit 25 minutes Jael Chapa Internal Medicine Start: 10-16-2009 End: 10-16-2009 Office outpatient visit 25 minutes [facility] Internal Medicine Start: 10-03-2009 End: 10-03-2009 Historical Summary Jael Dietz [facility] Pattern Layout Worker al Medicine Start: 09-20-2009 End: 09-20-2009 [facility] Start: 09-16-2009 End: 09-16-2009 Office outpatient new 30 minutes [facility] Internal [facility] Procedures Date Procedure Procedure Detail Performing Clinician Start: 01-26-2025 Cholecystectomy ILEANA GILBERT MD Comment on above: ROBOTIC CHOLECYSTECTOMY Start: 10-26-2024 Decompression of median nerve ILEANA WINN MD Start: 06-28-2024 Esophagogastroduodenoscopy ILEANA GILBERT MD Start: 06-17-2022 Cardiovascular stress test using pharmacologic stress agent [employer] PATCHER HELPER-Sarai Walters [employer]OL[employer] PATCHER HELPER Work Phone: Start: 06-10-[address] MAXIMUS GONZÁLES MD Comment on above: right Start: 12-28-2017 Cardiac catheterization ROSARIO WALTERS GARAGEMAN-CLIENT TECHNICAL PROFESSIONAL Comment on above: [facility]: 2 vessel [place]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 50% proximal OM1 stenosis. 90% proximal followed by 99% distal RCA. Patent ARMSTRONG to mid LAD. Patent SVG to OM! & OM2. Patent SVG to posterior descending & posterolateral branches. Nomral LV end diastolic pressure 17 mmHg. Start: 09-27-2015 History of coronary artery bypass grafting Aortocoronary bypass status [employer] PATCHER HELPER-Sarai Walters [employer] PATCHER HELPER Work Phone: Start: 07-29-2015 Coronary artery bypass grafts x 5 LEIF WALTERS GARAGEMAN-CLIENT TECHNICAL PROFESSIONAL Comment on above: Affinity- X's 5 Start: 06-28-2015 Exploration - action (qualifier value) ILEANA GILBERT MD Comment on above: sternal wound Start: 04-26-2014 IV DISC EXCISION PROVIDER UNKNOWN Start: 04-26-2014 LOW BACK DISK SURGERY ROMULO STEWART Start: 04-26-2014 SPINAL DISK SURGERY ADD- ROMULO STEWART Start: 08-22-2008 Lipid 1996 panel - Serum or Plasma Mri (I-Stat/1.5t) Work Phone: Arthroscopy of knee ILEANA DALEY MD Comment on above: x 3 Back Surgery Roger Sanchez Comment on above: 2014 section Roger gale Comment on above: 86 & 89 Coronary artery bypass grafts x 4 Roger Sanchez Comment on above: 2016Per pt in november he opened me up agai n and scrapped the bees waxIn march the plastic surgeon went in and took out 14 wires because they weren't healing Coronary artery bypass grafts x [address] DR MAXIMUS GONZÁLES MD Deliveries by (finding) DR MAXIMUS GONZÁLES MD Comment on above: twice History of coronary artery bypass grafting S/P CABG (coronary artery bypass graft)( Confirmed ) DR MAXIMUS GONZÁLES MD Hysterectomy DR MAXIMUS Samuels MD Injury of back (disorder) DR MAXIMUS GONZÁLES MD Comment on above: L4-5 cleaned out Knee region structur e (body structure) DR MAXIMUS GONZÁLES MD Comment on above: right knee surgery x 3 Knee Surgeries x 3 ( all arthroscopic) Roger Sanchez Oophorectomy DR MAXIMUS Samuels MD Comment on above: bilateral Other (qualifier value) DR Case GONZÁLES MD Comment on above: sternal wound exploration, application o f wound vac Surgical procedure ILEANA STOVALL MD Comment on above: L4-L5 cleaned out Total hysterectomy Roger Simons ith Comment on above: 2005 Plan of Treatment Date Care Activity Detail Author Start: 08-16-2027 Diabetes Screening Diabetes Screenin g [facility] Start: 05-26-2025 Screening for malign ant neoplasm of colon [facility] Start: 02-27-2024 Covid-19 Vaccine ( season) Covid-19 Vaccine ( season) [facility] Start: 02-27-2024 Covid-19 Vaccine ( season) Covid-19 Vaccine ( season) [facility] Start: 02-27-2024 Influenza vaccination Influenza Vacc ine (#1) [facility] Start: 04-24-2019 Procedure Education Eprescribe d prescriptions (G4253) [facility] Work Phone: Start: 04-24-2019 Provider Instruction s for Treatment Follow up if no improvement or if symptoms worsen [facility] Work Phone: Start: 10-08-2015 Pneumococcal Vaccine : 50+ (1 of 1 - PCV) Pneumococcal Vaccine: 50+ (1 of 1 - PCV) [facility] Start: 10-08-2015 Shingrix Vaccine (1 of 2) Shingrix Vaccine (1 of 2) [facility] Start: 08-22-2013 Lipid panel Lipid Screening [facility] Start: 03-27-2013 Patient Education [facility] Work Phone: Start: 03-27-2013 Lipid panel Comprehens um[facility] Work Phone: Start: 03-27-2013 Comprehensive metabo lic panel METABOLIC PANEL, COMPREHENSIVE (50752) [facility] Work Phone: Start: 03-27-2013 Blood count manual c ell count each CBC WITH MANUAL DIFF (47630) [facility] Work Phone: Start: 11-04-2011 Patient Education Low Back Opal n Exercises *: low back pain [facility] Work Phone: Start: 08-22-2011 Diabetes Screening Diabetes Screenin g [facility] Start: 2010 Screening for malign ant neoplasm of colon [facility] Start: 07-04-2010 Provider Instruction s for Treatment [facility] Work Phone: Start: 11-06-2009 Screening for malign ant neoplasm of breast Mammogram Screening [facility] Start: 09-20-2009 Provider Instruction s for Treatment FOLLOW UP IN 3 MONTHS [facility] Work Phone: Start: 09-20-2009 Hepatic function panel HEPATIC FUNCTION PANEL (54264) [facility] Work Phone: Comment on above: due in november Start: 09-20-2009 Lipid panel Lipid Panel (05541) [facility] Work Phone: Comment on above: fasting november Start: 09-20-2009 25 hydroxy includes fractions if performed CALCIFEDIOL (73643) [facility] Work Phone: Comment on above: repeat after done wi th perscription Vit D Start: 09-16-2009 Provider Instruction s for Treatment [facility] Work Phone: Start: 09-16-2009 TSH Qn TSH (THYROID STIMULATING HORMONE) (74952) [facility] Work Phone: Start: 1986 Screening for malign ant neoplasm of cervix Cervical Cancer Screening [facility] Start: 1984 Hepatitis B Vaccine (1 of 3 - 19+ 3-dose series) Hepatitis B Vaccine (1 of 3 - 19+ 3-dose series) [facility] Start: 1984 Urine microalbumin profile DTaP,Tdap,Td Vaccine (1 - Tdap) [facility] Start: 10-08-1983 Anxiety Screening Anxiety Screening [facility] Start: 10-08-1983 Depression Screening Depression Scre ening [facility] Start: 10-08-1983 Hepatitis C screening Hepatitis C Sc reening [facility] Start: 10-08-1983 HIV screening HIV Screening [facility] Lipid 1996 panel - Serum or Plasma [facility] Work Phone: [facility] Work Phone: [facility] Work Phone: [facility] Work Phone[facility] Work Phone: [facility] Work Phone: [facility] Work Phone: [facility] Work Phone: Immunizations Immunization Date Immunization Notes Care Provider Fa cility 05-02-2025 SARS-CoV-2 (COVID-19 ) mRNA-[id number] ROSARIO WALTERS GARAGEMAN-CLIENT TECHNICAL PROFESSIONAL [facility] 04-25-2025 zoster vaccine recombinant; Translations: [Shingrix] ROSARIO SELENA GARAGEMAN-CLIENT TECHNICAL PROFESSIONAL [facility] 04-25-2025 influenza, injectabl e, quadrivalent, contains preservative; Translations: [Fluarix PF Prefilled Syringe ] ROSARIO WALTERS GARAGEMAN-CLIENT TECHNICAL PROFESSIONAL [facility] 02-14-2022 SARS-CoV-2 mRNA (bgoysnlpkqv-tprh-neuwk se) vaccine ROSARIO SELENA GARAGEMAN-CLIENT TECHNICAL PROFESSIONAL [facility] 05-21-2021 SARS-CoV-2 mRNA (tozinameran) vaccine TONA ESCOBAR GARAGEMAN-CLIENT TECHNICAL PROFESSIONAL [facility] 10-03-2020 SARS-CoV-2 mRNA (tozinameran) vaccine TNOA ESCOBAR GARAGEMAN-CLIENT TECHNICAL PROFESSIONAL [facility] 09-12-2020 SARS-CoV-2 mRNA (tozinameran) vaccine TONA ESCOBAR GARAGEMAN-CLIENT TECHNICAL PROFESSIONAL [facility] Comment on above: Result Comment: 2021: [id number] Payers Date Payer Category Payer Private Health Insurance [id number] 2024 Self-pay [id number] 2019 [facility] FEP PPO [id number] 2019 Unknown 2019 Unknown [id number] 2016 Unknown [id number] 1965 Unknown [id number] 2.16.840.1.085719.3.579. 2. 1965 Unknown [id number] 2.16.840.1.642130.3.579. 2. 1965 Unknown [id number] 2.16.840.1.065190.3.579. 2. 1965 Unknown [id number] 2.16.840.1.827039.3.579. 2. 1965 Unknown [id number] 2.16.840.1.249518.3.579. 2. 1965 Unknown [id number] 2.16.840.1.337127.3.579. 2. 1965 Unknown [id number] 2.16.840.1.046363.3.579. 2. 1965 Unknown [id number] 2.16.840.1.063984.3.579. 2. 1965 Unknown [id number] 2.16.840.1.786748.3.579. 2. 1965 Unknown [id number] 2.16.840.1.366998.3.579. 2. 1965 Unknown [id number] 2.16.840.1.517624.3.579. 2. 1965 Unknown [id number] 2.16.840.1.701478.3.579. 2. 1965 Unknown [id number] 2.16.840.1.607287.3.579. 2. 1965 Unknown [id number] 2.16.840.1.270963.3.579. 2. 1965 Unknown [id number] 2.16.840.1.197694.3.579. 2. 1965 Unknown [id number] 2.16.840.1.642672.3.579. 2. 1965 Unknown [id number] 2.16.840.1.960787.3.579. 2 1965 Unknown [id number] 2.16.840.1.304278.3.579. 2. 1965 Unknown [id number] 2.16.840.1.911441.3.579. 2 1965 Unknown [id number] 2.16.840.1.403216.3.579. 2 1965 Unknown [id number] 2.16.840.1.266259.3.579. 2 1965 Unknown [id number] 2.16.840.1.077716.3.579. 2. 1965 Unknown [id number] 2.16.840.1.835668.3.579. 2. 1965 Unknown [id number] 2.16.840.1.585619.3.579. 2. 1965 Unknown [id number] 2.16.840.1.466586.3.579. 2 1965 Unknown [id number] 2.16.840.1.729218.3.579. 2 1965 Unknown [id number] 2.16.840.1.253227.3.579. 2. 1965 Unknown [id number] 2.16.840.1.156678.3.579. 2. 1965 Unknown [id number] 2.16.840.1.916423.3.579. 2. 1965 Unknown [id number] 2.16.840.1.899412.3.579. 2. 1965 Unknown [id number] 2.16.840.1.248077.3.579. 2. 1965 Unknown [id number] 2.16.840.1.044223.3.579. 2. 1965 Unknown [id number] 2.16.840.1.511549.3.579. 2. 1965 Unknown [id number] 2.16.840.1.925317.3.579. 2.627 Unknown [id number] 2.16.840.1.078210.3.579. 2.462 Unknown [id number] 2.16.840.1.402492.3.579. 2.462 Unknown [id number] 2.16.840.1.484203.3.579. 2.462 Unknown [id number] 2.16.840.1.196383.3.579. 2.462 Unknown [id number] 2.16.840.1.174558.3.579. 2.462 Unknown [id number] 2.16.840.1.876348.3.579. 2.462 Social History Date Type Detail Facility Current Work/Study Status: Current Work/Study Status: [facility] Work Phone: Comment on above: [place] Exercise History: Exercise History: Compr e[facility] Internal Medicine Work Phone: Start: 08-22-2008 End: 08-03-2024 Living Situation Living Situation [facility] Work Phone: Comment on above: Single, Heterosexual Tobacco Use: Tobacco Use: [facility] Work Phone: Start: 05-10-2019 End: 04-25-2025 Ex-smoker (finding) [facility] Comment on above: daily sister smokes out of doors quit in 2018 Start: 1965 Sex Assigned At Female [facility] Start: 04-23-2022 [facility] Work Phone: Start: 12-08-2017 None [facility] [facility] Work Phone: Start: 12-08-2017 With Family [facility] Work Phone: Start: 06-03-2020 Non-smoker [facility] Work Phone: Start: 08-22-2008 [facility] History of tobacco use Cigarette [facility] Start: 12-07-2008 Alcoholic beverage intake Current non-drinker of alcohol (finding) [facility] Start: 1965 Sex assigned at Not on file C [facility] Start: 08-03-2024 Gender identity Not on file [facility] Sexual Orientation [facility] Start: 12-21-2018 Sex Female (finding) [facility] National Score (1-10 0), lower number is lower risk 74 [facility] Medical Equipment Procedure Code Equipment Code Equipment Origin al Text Equipment Identifier Dates Blood Glucose Te [facility] Strips Start: 05-10-2019 Lancets Start: 05-10-[address] Strips Start: 05-10-2019 Lancets Start: 05-10-[address] Strips Start: 05-10-2019 Lancets Start: 05-10-2019 See Instructions , testing once daily, # 1 EA, 0 Refill(s), Pharmacy: [facility] Diabetes Start: 05-10-2019 See Instructions , testing once daily, # 1 EA, 0 Refill(s), Pharmacy: [address], [place] Start: 05-10-2019 See Instructions , testing once daily, # 1 EA, 0 Refill(s), Pharmacy: [address], [place] Start: 05-10-2019 See Instructions , testing once daily, # 1 EA, 0 Refill(s), Pharmacy: [address], Diabetes Start: 05-10-2019 See Instructions , testing once daily, # 1 EA, 0 Refill(s), Pharmacy: [address], Diabetes Start: 05-10-2019 See Instructions , testing once daily, # 1 EA, 0 Refill(s), Pharmacy: [address], Diabetes Start: 05-10-2019 See Instructions , testing once daily, # 1 EA, 0 Refill(s), Pharmacy: [address], Diabetes Start: 05-10-2019 See Instructions , testing once daily, # 1 EA, 0 Refill(s), Pharmacy: [address], Diabetes Start: 05-10-2019 See Instructions , testing once daily, # 1 EA, 0 Refill(s), Pharmacy: [address], Diabetes Start: 05-10-2019 See Instructions , testing once daily, # 1 EA, 0 Refill(s), Pharmacy: [address], Diabetes Start: 05-10-2019 See Instructions , testing once daily, # 1 EA, 0 Refill(s), Pharmacy: [address], Diabetes Start: 05-10-2019 See Instructions , testing once daily, # 1 EA, 0 Refill(s), Pharmacy: [address], Diabetes Start: 05-10-2019 See Instructions , testing once daily, # 1 EA, 0 Refill(s), Pharmacy: [address], Diabetes Start: 05-10-2019 See Instructions , testing once daily, # 1 EA, 0 Refill(s), Pharmacy: [address], Diabetes Start: 05-10-2019 See Instructions , testing once daily, # 1 EA, 0 Refill(s), Pharmacy: [address], Diabetes Start: 05-10-2019 See Instructions , testing once daily, # 1 EA, 0 Refill(s), Pharmacy: [address], Diabetes Start: 05-10-2019 See Instructions , testing once daily, # 1 EA, 0 Refill(s), Pharmacy: [address], Diabetes Start: 05-10-2019 See Instructions , testing once daily, # 1 EA, 0 Refill(s), Pharmacy: [address], Diabetes Start: 05-10-2019 See Instructions , testing once daily, # 1 EA, 0 Refill(s), Pharmacy: [address], Diabetes Start: 05-10-2019 See Instructions , testing once daily, # 1 EA, 0 Refill(s), Pharmacy: [address], Diabetes Start: 05-10-2019 See Instructions , testing once daily, # 1 EA, 0 Refill(s), Pharmacy: [address], Diabetes Start: 05-10-2019 See Instructions , testing once daily, # 1 EA, 0 Refill(s), Pharmacy: [address], Diabetes Start: 05-10-2019 See Instructions , testing once daily, # 1 EA, 0 Refill(s), Pharmacy: [address], Diabetes Start: 05-10-2019 See Instructions , testing once daily, # 1 EA, 0 Refill(s), Pharmacy: [address], Diabetes Start: 05-10-2019 See Instructions , testing once daily, # 1 EA, 0 Refill(s), Pharmacy: [address], Diabetes Start: 05-10-2019 See Instructions , testing once daily, # 1 EA, 0 Refill(s), Pharmacy: [address], Diabetes Start: 05-10-2019 See Instructions , testing once daily, # 1 EA, 0 Refill(s), Pharmacy: [address], Diabetes Start: 05-10-2019 See Instructions , testing once daily, # 1 EA, 0 Refill(s), Pharmacy: [address], Diabetes Start: 05-10-2019 See Instructions , testing once daily, # 1 EA, 0 Refill(s), Pharmacy: [address], Diabetes Start: 05-10-2019 See Instructions , testing once daily, # 1 EA, 0 Refill(s), Pharmacy: [address], Diabetes Start: 05-10-2019 See Instructions , testing once daily, # 1 EA, 0 Refill(s), Pharmacy: [address], Diabetes Start: 05-10-2019 See Instructions , testing once daily, # 1 EA, 0 Refill(s), Pharmacy: [address], Diabetes Start: 05-10-2019 See Instructions , testing once daily, # 1 EA, 0 Refill(s), Pharmacy: [address], Diabetes Start: 05-10-2019 See Instructions , testing once daily, # 1 EA, 0 Refill(s), Pharmacy: [address], Diabetes Start: 05-10-2019 See Instructions , testing once daily, # 1 EA, 0 Refill(s), Pharmacy: [address], Diabetes Start: 05-10-2019 See Instructions , testing once daily, # 1 EA, 0 Refill(s), Pharmacy: [address], Diabetes Start: 05-10-2019 See Instructions , testing once daily, # 1 EA, 0 Refill(s), Pharmacy: [address], Diabetes Start: 05-10-2019 See Instructions , testing once daily, # 1 EA, 0 Refill(s), Pharmacy: [address], Diabetes Start: 05-10-2019 See Instructions , testing once daily, # 1 EA, 0 Refill(s), Pharmacy: [address], Diabetes Start: 05-10-2019 See Instructions , testing once daily, # 1 EA, 0 Refill(s), Pharmacy: [address], Diabetes Start: 05-10-2019 See Instructions , testing once daily, # 1 EA, 0 Refill(s), Pharmacy: [address], Diabetes Start: 05-10-2019 See Instructions , testing once daily, # 1 EA, 0 Refill(s), Pharmacy: [address], Diabetes Start: 05-10-2019 See Instructions , testing once daily, # 1 EA, 0 Refill(s), Pharmacy: [address], Diabetes Start: 05-10-2019 See Instructions , testing once daily, # 1 EA, 0 Refill(s), Pharmacy: [address], Diabetes Start: 05-10-2019 See Instructions , testing once daily, # 1 EA, 0 Refill(s), Pharmacy: [address], Diabetes Start: 05-10-2019 See Instructions , testing once daily, # 1 EA, 0 Refill(s), Pharmacy: [address], Diabetes Start: 05-10-2019 See Instructions , testing once daily, # 1 EA, 0 Refill(s), Pharmacy: [address], Diabetes Start: 05-10-2019 See Instructions , testing once daily, # 1 EA, 0 Refill(s), Pharmacy: [address], Diabetes Start: 05-10-2019 See Instructions , testing once daily, # 1 EA, 0 Refill(s), Pharmacy: [address], Diabetes Start: 05-10-2019 See Instructions , testing once daily, # 1 EA, 0 Refill(s), Pharmacy: [address], Diabetes Start: 05-10-2019 See Instructions , testing once daily, # 1 EA, 0 Refill(s), Pharmacy: [address], Diabetes Start: 05-10-2019 See Instructions , testing once daily, # 1 EA, 0 Refill(s), Pharmacy: [address], Diabetes Start: 05-10-2019 See Instructions , testing once daily, # 1 EA, 0 Refill(s), Pharmacy: [address], Diabetes Start: 05-10-2019 See Instructions , testing once daily, # 1 EA, 0 Refill(s), Pharmacy: [facility] [place] [address], Diabetes Start: 05-10-2019 See Instructions , testing once daily, # 1 EA, 0 Refill(s), [facility] [place] [address], Diabetes Start: 05-10-2019 See Instructions , testing once daily, # 1 EA, 0 Refill(s), [facility] [place] [address], Diabetes Start: 05-10-2019 See Instructions , testing once daily, # 1 EA, 0 Refill(s), [facility]: [facility] [place] [address], Diabetes Start: 05-10-2019 See Instructions , testing once daily, # 1 EA, 0 Refill(s), [facility]: [facility] [place] [address], Diabetes Start: 05-10-2019 See Instructions , testing once daily, # 1 EA, 0 Refill(s), [facility] [place] [address], Diabetes Start: 05-10-2019 See Instructions , testing once daily, # 1 EA, 0 Refill(s), Pharmacy: [facility], Diabetes Start: 05-10-2019 Functional Status Date Assessment Result Facility 03-31-2024 Functional Status ID band on, Allergy Band on, Call device within reach, Bed in low position, Wheels locked, Upper/Half-Length side-rails up, Safety level maintained [facility] 12-26-2022 Functional Status Independent [facility] 06-12-2021 Functional Status [facility] Mental Status Date Assessment Result Facility 03-31-2024 Mental Status Orientation Oriented x 4 [facility] 12-26-2022 Mental Status Orientation Oriented x 4 [facility] Clinical Notes 09-27-2015 to 05-04-2025 Note Date & Type Note Facility 05-04-2025 Note . MICRO - Microbiology PROCEDURE: Urine Culture [*1] SOURCE: Urine, Clean Catch BODY SITE: COLLECTED DATE/TIME: 05/02/2025 16:20 EST RECEIVED DATE/TIME: 05/02/2025 19:35 EST START DATE/TIME: 05/02/2025 19:35 EST FREE TEXT SOURCE: FINAL REPORTS Final Report [] Verified Date/Time/Personnel: 05/04/2025 08:01 EST 10,000 - 50,000 cfu/ml Multiple bacterial morphotypes present. Probable Contamination. Suggest recollection if clinically indicated. PRELIMINARY REPORTS Preliminary Report [] Verified Date/Time/Personnel: 05/03/2025 10:23 EST No growth to date Preliminary Report [] Verified Date/Time/Personnel: 05/02/2025 20:59 EST Specimen received in lab. Performing Locations *1: This test was performed at: [address], [address] , [facility] 04-28-2025 Note . MICRO - Microbiology PROCEDURE: Urine Culture [*1] SOURCE: Urine, Clean Catch BODY SITE: COLLECTED DATE/TIME: 04/25/2025 15:28 EDT RECEIVED DATE/TIME: 04/26/2025 16:11 EDT START DATE/TIME: 04/26/2025 16:11 EDT FREE TEXT SOURCE: FINAL REPORTS Final Report [] Verified Date/Time/Personnel: 04/28/2025 07:55 EDT 10,000 - 50,000 cfu/ml Mixed growth consistent with normal urogenital patrice. PRELIMINARY REPORTS Preliminary Report [] Verified Date/Time/Personnel: 04/27/2025 09:47 EDT No growth to date Preliminary Report [] Verified Date/Time/Personnel: 04/26/2025 16:59 EDT Specimen received in lab. Performing Locations *1: This test was performed at: [address], [address]- , [facility] 01-29-2025 Hospital Discharge instructions Patient Education 01/29/2025 19:01:53 Incision Care Incision Care Remember: Follow-up visits allow your healthcare provider to make sure your incision is healing well. Be sure to keep your appointments. Stitches (sutures), surgical steph, special strips of surgical tape, or surgical skin glue may be used to close incisions. They also help stop bleeding and speed healing. To help your incision heal, follow the tips on this handout. Home care Tips for home care include the following: Always wash your hands before and after touching your incision. Keep your incision clean and dry. Avoid doing things that could cause dirt or sweat to get on your incision. Don t pick at scabs. They help protect the wound. Keep your incision out of water. Take a sponge bath to avoid getting your incision wet, unless your healthcare provider tells you otherwise. Ask your provider when can you take a shower or bathe. Ask your provider about the best way to keep your incision dry when bathing or showering. Pat stitches dry if they get wet. Don t rub. Leave the bandage (dressing) in place until you are told to remove it or change it. Change it only as directed, using clean hands. After the first 12 hours, change your dressing every 24 hours, or as directed by your healthcare provider. Change your dressing if it gets wet or soiled. Care for specific closures Follow these guidelines unless your healthcare provider tells you otherwise: Stitches or steph. Once you no longer need to keep these dry, clean the wound daily. First remove the bandage using clean hands. Then wash the area gently with soap and warm water. Use a wet cotton swab to loosen and remove any blood or crust that forms. After cleaning, put a thin layer of antibiotic ointment on. Then put on a new bandage. Skin glue. Don t put liquid, ointment, or cream on your wound while the glue is in place. Avoid activities that cause heavy sweating. Protect the wound from sunlight. Do not scratch, rub, or pick at the glue. Do not put tape directly over the glue. The glue should peel off within 5 to 10 days. Surgical tape. Keep the area dry. If it gets wet, blot the area dry with a clean towel. Surgical tape usually falls off within 7 to 10 days. If it has not fallen off after 10 days, contact your healthcare provider before taking it off yourself. If you are told to remove the tape, put mineral oil or petroleum jelly on a cotton ball. Gently rub the tape until it is removed. Changing your dressing Leave the dressing (bandage) in place until you are told to remove it or change it. Follow the instructions below unless told otherwise by your healthcare provider: Always wash your hands before changing your dressing. After the first 48 hours, the incision wound usually will have closed. At this point, leave the incision uncovered and open to the air. If the incision has not closed keep it covered. Cover your incision only if your clothing is rubbing it or causing irritation. Change your dressing if it gets wet or soiled. Follow-up care Follow up with your healthcare provider to ask how long sutures or steph should be left in place. Be sure to return for stitch or staple removal as directed. If dissolving stitches were used in your mouth, these will not need to be removed. They should fall out or dissolve on their own. If tape closures were used, remove them yourself when your provider recommends if they have not fallen off on their own. If skin glue was used, the glue will wear off by itself. When to seek medical care Call your healthcare provider if you have any of the following: More pain, redness, swelling, bleeding, or foul-smelling discharge around the incision area Fever of 100.4 F (38 C) or higher, or as directed by your healthcare provider Shaking chills Vomiting or nausea that doesn't go away Numbness, coldness, or tingling around the incision area, or changes in skin color Opening of the sutures or wound Stitches or steph come apart or fall out or surgical tape falls off before 7 days or as directed by your healthcare provider [id number] [employer]. [address] [place] [address]. All rights reserved. This information is not intended as a substitute for professional medical care. Always follow your healthcare professional's instructions. Follow Up Care 01/29/2025 18:10:12 With:ROSARIO WALTERS APRN-CLIENT TECHNICAL PROFESSIONAL Address: [address] [facility] [place], [place] [id number] [phone] When:2-4 days [facility] 01-29-2025 Note Discharge Instructions Thank you for allowing [place] to assist you with your healthcare needs. The following is important discharge information regarding your hospital visit. What to Do Next Instructions from Your Care Team No qualifying data available. Post Acute Orders No qualifying data available. You Need to Schedule the Following Appointments Follow Up with SELENA, ROSARIO S GARAGEMAN-CLIENT TECHNICAL PROFESSIONAL When:Within 2-4 days Where:[address] [facility] [place] [phone] Allergies Statins (Moderate) Painful joint penicillin Hives Medications Please ask your primary doctor or pharmacist before taking any other medication not listed, including over the counter drugs, herbal medications, vitamins and or supplements as they may interact with your home medications. What How Much When Why Instructions Last Dose Unchanged aspirin (aspirin 81 mg oral delayed release tablet) 1 tab(s) by mouth Once a day Unchanged DME (Blood Glucose Test Machine) See instructions Diabetes testing once daily Unchanged DME (Blood Glucose Test Strips) See instructions Diabetes testing once daily Unchanged DME (Lancets) See instructions Diabetes testing once daily Unchanged ferrous sulfate (ferrous sulfate 325 mg (65 mg elemental iron) oral delayed release tablet) 1 tab(s) by mouth Two (2) times a day Unchanged furosemide (furosemide 20 mg oral tablet) 1 tab(s) by mouth Once a day as needed for Swelling Unchanged ondansetron (Zofran 4 mg oral tablet) 1 tab(s) by mouth Every 6 hours as needed for Nausea/Vomiting Unchanged oxyCODONE (oxyCODONE 5 mg oral tablet ( IMMEDIATE release )) 1 tab(s) by mouth Every 6 hours as needed for for pain Acute postoperative pain Duration: 3 Days Unchanged potassium chloride (potassium chloride 10 mEq oral capsule, extended release) 1 cap by mouth Two (2) times a day Unchanged tirzepatide (Mounjaro 12.5 mg/ 0.5 mL subcutaneous solution) 12.5 Milligram Subcutaneous Every week rotate injection sites Please take this list to your next doctor s visit. Bring all medications you take, including over the counter medications, herbals and other supplements with you to your doctor s visit. Patients and families are reminded to discard old lists and to update any records with all medication providers or retail pharmacies. Education Materials Incision Care Remember: Follow-up visits allow your healthcare provider to make sure your incision is healing well. Be sure to keep your appointments. Stitches (sutures), surgical steph, special strips of surgical tape, or surgical skin glue may be used to close incisions. They also help stop bleeding and speed healing. To help your incision heal, follow the tips on this handout. Home care Tips for home care include the following: Always wash your hands before and after touching your incision. Keep your incision clean and dry. Avoid doing things that could cause dirt or sweat to get on your incision. Don t pick at scabs. They help protect the wound. Keep your incision out of water. Take a sponge bath to avoid getting your incision wet, unless your healthcare provider tells you otherwise. Ask your provider when can you take a shower or bathe. Ask your provider about the best way to keep your incision dry when bathing or showering. Pat stitches dry if they get wet. Don t rub. Leave the bandage (dressing) in place until you are told to remove it or change it. Change it only as directed, using clean hands. After the first 12 hours, change your dressing every 24 hours, or as directed by your healthcare provider. Change your dressing if it gets wet or soiled. Care for specific closures Follow these guidelines unless your healthcare provider tells you otherwise: Stitches or steph. Once you no longer need to keep these dry, clean the wound daily. First remove the bandage using clean hands. Then wash the area gently with soap and warm water. Use a wet cotton swab to loosen and remove any blood or crust that forms. After cleaning, put a thin layer of antibiotic ointment on. Then put on a new bandage. Skin glue. Don t put liquid, ointment, or cream on your wound while the glue is in place. Avoid activities that cause heavy sweating. Protect the wound from sunlight. Do not scratch, rub, or pick at the glue. Do not put tape directly over the glue. The glue should peel off within 5 to 10 days. Surgical tape. Keep the area dry. If it gets wet, blot the area dry with a clean towel. Surgical tape usually falls off within 7 to 10 days. If it has not fallen off after 10 days, contact your healthcare provider before taking it off yourself. If you are told to remove the tape, put mineral oil or petroleum jelly on a cotton ball. Gently rub the tape until it is removed. Changing your dressing Leave the dressing (bandage) in place until you are told to remove it or change it. Follow the instructions below unless told otherwise by your healthcare provider: Always wash your hands before changing your dressing. After the first 48 hours, the incision wound usually will have closed. At this point, leave the incision uncovered and open to the air. If the incision has not closed keep it covered. Cover your incision only if your clothing is rubbing it or causing irritation. Change your dressing if it gets wet or soiled. Follow-up care Follow up with your healthcare provider to ask how long sutures or steph should be left in place. Be sure to return for stitch or staple removal as directed. If dissolving stitches were used in your mouth, these will not need to be removed. They should fall out or dissolve on their own. If tape closures were used, remove them yourself when your provider recommends if they have not fallen off on their own. If skin glue was used, the glue will wear off by itself. When to seek medical care Call your healthcare provider if you have any of the following: More pain, redness, swelling, bleeding, or foul-smelling discharge around the incision area Fever of 100.4 F (38 C) or higher, or as directed by your healthcare provider Shaking chills Vomiting or nausea that doesn't go away Numbness, coldness, or tingling around the incision area, or changes in skin color Opening of the sutures or wound Stitches or steph come apart or fall out or surgical tape falls off before 7 days or as directed by your healthcare provider [phone] [employer]. [address] [place] [address]. All rights reserved. This information is not intended as a substitute for professional medical care. Always follow your healthcare professional's instructions. Additional Information VACCINATE! IT SAVES LIVES! Members of the community who have not yet received the COVID-19 vaccine and would like to receive it can visit one of [facility] vaccine clinics. There are many vaccine clinic locations within the [facility]. For locations and available times, please visit www.gettheshot.coronavirus.[place].gov/. It is important to note that some COVID mobile vaccine clinics are held outdoors and may be canceled in rainy or stormy conditions. To learn more about pediatric vaccinations (ages 5-11), we invite you to visit the [facility] webpage. [email or web address]/[email or web address]-[email or web address]-Frequently-[email or web address] -Questions.html To learn more about the COVID-19 vaccine, we invite you to visit the CDC website for a list of frequently asked questions. https://www.cdc.gov/coronavirus/2019-n cov/vaccines/faq.html [facility] Patient Portal Access Instructions: Stay connected with your healthcare team and access your personal medical information anytime with the [employer] Patient Portal. If you would like a full copy of your medical records please contact the [facility] Medical Records Department Wednesday through Wednesday between 8a.m. and 4:30p.m. Please follow the directions below to access the portal: 1.Access the email account you provided upon registration to the [facility].2.Look for an invitation email from [facility].3.Open the email and access the invitation link: Accept Invitation to [facility]4.Fill in the required morgan to create your account. Sign into [email or web address] with your username and password that you created in the above steps to stay up to date. You can then view a summary of results, a summary of your visits, and the ability to download your summaries to your computer or send the information securely to a physician. Remember that your healthcare information is confidential, so carefully consider who you will allow to register on the [employer] Patient Portal for access to your information. You can also access the [employer] Patient Portal on the [employer]. Simply click on Health Records under Health Data and then click on the [employer] logo. HOW TO SAFELY DISPOSE OF PRESCRIPTION MEDICATIONS Please use one of the following methods to safely dispose of your unused medications. 1.Use a drug disposal kit: the drug disposal pouch allows you to safely discard your old and unused drugs. Ask your nurse to give you one when you are discharged.2.Visit a local take-back location: Many local pharmacies and police departments have programs that collect old and unwanted prescription drugs. Call your local pharmacy or go to http://bit.ly/4Z1Gb5o to find one close to you.3.Make use of household items: Use cat litter or old coffee grounds to dispose medications if other options are not available. Mix your drugs with these household products, seal them in an airtight container and throw it into the garbage. Call [facility]: [phone] to be sure your drugs can be disposed of in this way. Some medicines may require a different approach.4.Never flush your medications down the toilet. IF YOU HAVE BEEN PRESCRIBED AN OPIOIDS FOR PAIN If you have been prescribed an opioid (such as hydrocodone, oxycodone or morphine), it is critical to understand the possible side effects and risks of opioid pain medications. Even when taken as directed, opioids can have several side effects including: Tolerance, meaning you might need to take more of a medication for the same pain relief. Nausea, vomiting and/or constipation. Sleepiness, dizziness, dry mouth, confusion, depression or itching. Physical dependence, meaning you have withdrawal symptoms when a medication is stopped ? this can develop within a few days. KNOW YOUR RESPONSIBILITIES It is important to know exactly how much and how often to take the opioid pain medications you are prescribed. Never take opioids in higher amounts or more often than prescribed. Do not combine opioids with alcohol or other drugs that cause drowsiness, such as benzodiazepines, also known as benzos, including diazepam and alprazolam, muscle relaxants or sleep aids. Never sell or share prescription opioids. This is illegal. Store opioids in a secure place and out of reach of others (including children, family, friends and visitors). The last page(s) of this document has been signed and retained as a CHART COPY Signatures Patient Education Materials Incision Care Medication Leaflets My discharge plan and instructions have been reviewed and explained to me and I,SONDRA DUVAL understand my current condition and have read and understand these discharge instructions. I have received a written copy of the plan/instructions. If I have questions, I am aware that I should contact my doctor. Patient/[employer]ner Signature: _ Date/Time: Relationship to Patient: Witness Name/Signature: Date/Time: [facility] 01-28-2025 Hospital Discharge instructions Patient Education 01/28/2025 12:55:08 Surgical Drain Home Care Surgical Drain Home Care Surgical drains are used to remove extra fluid that normally builds up in a surgical wound after surgery. A surgical drain helps to heal a surgical wound. Different kinds of surgical drains include: Active drains. These drains use suction to pull drainage away from the surgical wound. Drainage flows through a tube to a container outside of the body. With these drains, you need to keep the bulb or the drainage container flat (compressed) at all times, except while you empty it. Flattening the bulb or container creates suction. Passive drains. These drains allow fluid to drain naturally, by gravity. Drainage flows through a tube to a bandage (dressing) or a container outside of the body. Passive drains do not need to be emptied. A drain is placed during surgery. Right after surgery, drainage is usually bright red and a little thicker than water. The drainage may gradually turn yellow or pink and become thinner. It is likely that your health care provider will remove the drain when the drainage stops or when the amount decreases to 1 2 Tbsp (15 30 mL) during a 24-hour period. Supplies needed: Tape. Germ-free cleaning solution (sterile saline). Cotton swabs. Split gauze drain sponge: 4 x 4 inches (10 x 10 cm). Gauze square: 4 x 4 inches (10 x 10 cm). How to care for your surgical drain Care for your drain as told by your health care provider. This is important to help prevent infection. If your drain is placed at your back, or any other mamr-uo-tdaod area, ask another person to assist you in performing the following tasks: General care Keep the skin around the drain dry and covered with a dressing at all times. Check your drain area every day for signs of infection. Check for: ?Redness, swelling, or pain. ?Pus or a bad smell. ?Cloudy drainage. ?Tenderness or pressure at the drain exit site. Changing the dressing Follow instructions from your health care provider about how to change your dressing. Change your dressing at least once a day. Change it more often if needed to keep the dressing dry. Make sure you: 1.Gather your supplies. 2.Wash your hands with soap and water before you change your dressing. If soap and water are not available, use hand straightedge worker. 3.Remove the old dressing. Avoid using scissors to do that. 4.Wash your hands with soap and water again after removing the old dressing. 5.Use sterile saline to clean your skin around the drain. You may need to use a cotton swab to clean the skin. 6.Place the tube through the slit in a drain sponge. Place the drain sponge so that it covers your wound. 7.Place the gauze square or another drain sponge on top of the drain sponge that is on the wound. Make sure the tube is between those layers. 8.Tape the dressing to your skin. 9.Tape the drainage tube to your skin 1 2 inches (2.5 5 cm) below the place where the tube enters your body. Taping keeps the tube from pulling on any stitches (sutures) that you have. 10.Wash your hands with soap and water. 11.Write down the color of your drainage and how often you change your dressing. How to empty your active drain 1.Make sure that you have a measuring cup that you can empty your drainage into. 2.Wash your hands with soap and water. If soap and water are not available, use hand straightedge worker. 3.Loosen any pins or clips that hold the tube in place. 4.If your health care provider tells you to strip the tube to prevent clots and tube blockages: Hold the tube at the skin with one hand. Use your other hand to pinch the tubing with your thumb and first finger. Gently move your fingers down the tube while squeezing very lightly. This clears any drainage, clots, or tissue from the tube. You may need to do this several times each day to keep the tube clear. Do not pull on the tube. 5.Open the bulb cap or the drain plug. Do not touch the inside of the cap or the bottom of the plug. 6.Turn the device upside down and gently squeeze. 7.Empty all of the drainage into the measuring cup. 8.Compress the bulb or the container and replace the cap or the plug. To compress the bulb or the container, squeeze it firmly in the middle while you close the cap or plug the container. 9.Write down the amount of drainage that you have in each 24-hour period. If you have less than 2 Tbsp (30 mL) of drainage during 24 hours, contact your health care provider. 10.Flush the drainage down the toilet. 11.Wash your hands with soap and water. Contact a health care provider if: You have redness, swelling, or pain around your drain area. You have pus or a bad smell coming from your drain area. You have a fever or chills. The skin around your drain is warm to the touch. The amount of drainage that you have is increasing instead of decreasing. You have drainage that is cloudy. There is a sudden stop or a sudden decrease in the amount of drainage that you have. Your drain tube falls out. Your active drain does not stay compressed after you empty it. Summary Surgical drains are used to remove extra fluid that normally builds up in a surgical wound after surgery. Different kinds of surgical drains include active drains and passive drains. Active drains use suction to pull drainage away from the surgical wound, and passive drains allow fluid to drain naturally. It is important to care for your drain to prevent infection. If your drain is placed at your back, or any other disu-ef-bgnuz area, ask another person to assist you. Contact your health care provider if you have redness, swelling, or pain around your drain area. This information is not intended to replace advice given to you by your health care provider. Make sure you discuss any questions you have with your health care provider. Document Released: 06/11/2001 Document Revised: 07/19/2019 Document Reviewed: 07/19/2019 [employer] Patient Education 2020 [employer] 01/28/2025 12:55:07 8- Alexandr Jackson Drain (03/2018)(CUSTOM) Alexandr Jackson Drain Patient Education After surgery, you may notice a bulb-like drain, called a Alexandr-Jackson (WILDER) connected to tubing coming from your incision. This drain suctions and collects fluid from your incisional area. It also promotes healing and reduces the chance of infection You may have the drain for several days after surgery. While you are hospitalized, your nurse will take care of it. If you go home with the drain in place, you will need to care for it yourself. The process is easy to learn. Your nurse will show you how. How to empty the WIDLER drain 1. Empty the drainage bottle as needed (usually 3 times/day), when it is half full, or as often as directed. 2. Obtain a measuring cup to collect the fluid. 3. Wash your hands thoroughly with soap and water. 4. Unpin the bottle from your dressing or shirt. 5. Remove the rubber stopper from the bottle. 6. Turn the bottle upside-down and squeeze the contents into the measuring cup. Completely empty the bottle. Note: To prevent infection, don t let the rubber stopper or top of the bottle touch the measuring cup or anything else. 7. Clean the plug with an alcohol swab or cotton ball dipped in rubbing alcohol. 8. Use one hand to squeeze all of the air from the bottle. 9. With the bottle still compressed, use your other hand to replace the rubber stopper. Do this to make sure the drain suction works well. The bottle should stay flat until it starts to fill with fluid again. 10. Pin the bottle back on your dressing or shirt to avoid pulling it out accidently. 11. Flush the fluid down the toilet. 12. Wash your hands again. Write down the time, amount and color of the drainage. Always remember to wash your hands before and after the procedure to reduce the risk of infecting the incisional area What should I do if the tubing becomes clogged? Hold the tubing between your thumb and first finger at the place closest to your skin. This hand will prevent the tube from being pulled out of your skin. Use your other thumb and first finger to slide the clog down the tubing toward the bulb. You may have to repeat the sliding until the tubing is unclogged. When should I seek immediate care? Your WILDER drain breaks or comes out When should I contact my healthcare provider? You think your WILDER drain is blocked You have brown drainage from your WILDER drain site, or the drainage smells bad You have a fever higher than 101 F (38.6 C) You have increased pain, redness or swelling around the drain site You have questions about your WILDER drain care DRAINAGE RECORD Date Time Amount Document Released: 06/14/2006 Document Revised: 05/31/2013 Document Reviewed: 06/15/2014 ExitCare Patient Information 2015 [employer] [facility]. This information is not intended to replace advice given to you by your health care provider. Make sure you discuss any questions you have with your health care provider. Follow Up Care 01/18/2025 16:19:24 With:NEAL SHI Address: [address] [facility] [address] [facility] [place] [place] [address]- [phone] Business (1) When:1-2 days With:ROSARIO WALTERS Address: [address] [facility] [place], [place] [id number]- [phone] Business (1) When:1-2 days [facility] 01-28-2025 Note Discharge Instructions Thank you for allowing [facility] to assist you with your healthcare needs. The following is important discharge information regarding your hospital visit. Your Care Team ROSARIO WALTERS GARAGEMAN-CLIENT TECHNICAL PROFESSIONAL Your Diagnosis Acute postoperative pain What to do next Instructions From Your Doctor No lifting or pushing objects greater than 10-15 pounds and no strenuous activity. Walking, using the stairs, and riding in a car are acceptable forms of activity and are encouraged in the postoperative period. Incentive spirometry use and deep breathing/coughing exercises are also encouraged after discharge to prevent respiratory complications such as pneumonia and blood clots. No driving while taking narcotic pain medication. You may shower. No tub bathing or soaking your incisions, and no pool/hot tub use until cleared by your surgeon. Wash your incisions daily with a mild soap and water and pat dry. It is recommended that you alternate between 650-1000 mg of Tylenol and 400-800 mg Motrin (Advil or Ibuprofen) every 6 hours as needed to optimize pain control after surgery. A temporary prescription for a narcotic pain medication is typically provided to you postoperatively and should only be used for breakthrough pain as narcotics increase the risk for constipation, dependency, and respiratory depression. Constipation after surgery is a very common concern for patients after discharge from the hospital. Patients are encouraged to take over the counter stool softeners (such as Colace) and over the counter laxatives (Miralax) as needed for constipation. Additional medications that can be taken for postoperative constipation include milk of magnesia, Metamucil, and Senokot. Please empty WILDER drain 3 times daily and as needed. Please record output. Please follow-up in the office with Dr. Gilbert on January. The office will call with a time. Please call the office with any questions or concerns in the meantime. Please complete labs on Wednesday, January 31, 2025. Scheduled Follow-Up Appointments Appointment Type When With Where Contact Information StatusGS OV Post Op 02/08/2025 02:00 PM EDT ILEANA GILBERT MD [facility] Confirmed MEDS - Diabetic Individual Visit 04/18/2025 04:00 PM EDT Portal Diet Visits [phone] Confirmed CV OV 12/26/2025 03:30 PM EDT TONA ESCOBAR APRN-CLIENT TECHNICAL PROFESSIONAL [facility] Confirmed Follow Up Appointments Follow Up with NEAL SHI When:Within 1-2 days Where:[address] [place] [address]- [phone] Business (1) Follow Up with ROSARIO WALTERS When:Within 1-2 days Where:[address] [place] [address]- [phone] Business (1) The Following Activity and Diet Have Been Ordered for You Discharge Activity - Ordered -- May Shower, No tub bath or pool use.No driving for 5 days or while taking narcotics.No strenuous activity.No lifting greater than 10 to 15 pounds., 01/28/25 12:27:00 EDT No qualifying data available. The Following Equipment Has Been Ordered for You No qualifying data available. The Following Treatments Have Been Ordered for You Discharge Labs No qualifying data available. Discharge Radiology No qualifying data available. Other Therapies No qualifying data available. Post Acute Orders No qualifying data available. Someone Will Contact You Regarding These Home Health Referrals No home referrals have been ordered for you. No one will call you. Allergies Statins (Moderate) Painful joint penicillin Hives Medications Please ask your primary doctor or pharmacist before taking any other medication not listed, including over the counter drugs, herbal medications, vitamins and or supplements as they may interact with your home medications. What How Much When Why Instructions Last Dose New ondansetron (Zofran 4 mg oral tablet) 1 tab(s) by mouth Every 6 hours as needed for Nausea/Vomiting Pickup at [facility]/pharmacy #[id number] New oxyCODONE (oxyCODONE 5 mg oral tablet ( IMMEDIATE release )) 1 tab(s) by mouth Every 6 hours as needed for for pain Acute postoperative pain Duration: 3 Days Pickup at [facility]/pharmacy #[id number] Unchanged aspirin (aspirin 81 mg oral delayed release tablet) 1 tab(s) by mouth Once a day Unchanged DME (Blood Glucose Test Machine) See instructions Diabetes testing once daily Unchanged DME (Blood Glucose Test Strips) See instructions Diabetes testing once daily Unchanged DME (Lancets) See instructions Diabetes testing once daily Unchanged ferrous sulfate (ferrous sulfate 325 mg (65 mg elemental iron) oral delayed release tablet) 1 tab(s) by mouth Two (2) times a day Unchanged furosemide (furosemide 20 mg oral tablet) 1 tab(s) by mouth Once a day as needed for Swelling Unchanged potassium chloride (potassium chloride 10 mEq oral capsule, extended release) 1 cap by mouth Two (2) times a day Unchanged tirzepatide (Mounjaro 12.5 mg/ 0.5 mL subcutaneous solution) 12.5 Milligram Subcutaneous Every week rotate injection sites Pharmacy Information [facility]/pharmacy #[id number]: [address], [place] [phone] Please take this list to your next doctor s visit. Bring all medications you take, including over the counter medications, herbals and other supplements with you to your doctor s visit. Patients and families are reminded to discard old lists and to update any records with all medication providers or retail pharmacies. Education Materials Surgical Drain Home Care Surgical drains are used to remove extra fluid that normally builds up in a surgical wound after surgery. A surgical drain helps to heal a surgical wound. Different kinds of surgical drains include: Active drains. These drains use suction to pull drainage away from the surgical wound. Drainage flows through a tube to a container outside of the body. With these drains, you need to keep the bulb or the drainage container flat (compressed) at all times, except while you empty it. Flattening the bulb or container creates suction. Passive drains. These drains allow fluid to drain naturally, by gravity. Drainage flows through a tube to a bandage (dressing) or a container outside of the body. Passive drains do not need to be emptied. A drain is placed during surgery. Right after surgery, drainage is usually bright red and a little thicker than water. The drainage may gradually turn yellow or pink and become thinner. It is likely that your health care provider will remove the drain when the drainage stops or when the amount decreases to 1 2 Tbsp (15 30 mL) during a 24-hour period. Supplies needed: Tape. Germ-free cleaning solution (sterile saline). Cotton swabs. Split gauze drain sponge: 4 x 4 inches (10 x 10 cm). Gauze square: 4 x 4 inches (10 x 10 cm). How to care for your surgical drain Care for your drain as told by your health care provider. This is important to help prevent infection. If your drain is placed at your back, or any other mptj-gi-ihjup area, ask another person to assist you in performing the following tasks: General care Keep the skin around the drain dry and covered with a dressing at all times. Check your drain area every day for signs of infection. Check for: ? Redness, swelling, or pain. ? Pus or a bad smell. ? Cloudy drainage. ? Tenderness or pressure at the drain exit site. Changing the dressing Follow instructions from your health care provider about how to change your dressing. Change your dressing at least once a day. Change it more often if needed to keep the dressing dry. Make sure you: 1. Gather your supplies. 2. Wash your hands with soap and water before you change your dressing. If soap and water are not available, use hand straightedge worker. 3. Remove the old dressing. Avoid using scissors to do that. 4. Wash your hands with soap and water again after removing the old dressing. 5. Use sterile saline to clean your skin around the drain. You may need to use a cotton swab to clean the skin. 6. Place the tube through the slit in a drain sponge. Place the drain sponge so that it covers your wound. 7. Place the gauze square or another drain sponge on top of the drain sponge that is on the wound. Make sure the tube is between those layers. 8. Tape the dressing to your skin. 9. Tape the drainage tube to your skin 1 2 inches (2.5 5 cm) below the place where the tube enters your body. Taping keeps the tube from pulling on any stitches (sutures) that you have. 10. Wash your hands with soap and water. 11. Write down the color of your drainage and how often you change your dressing. How to empty your active drain 1. Make sure that you have a measuring cup that you can empty your drainage into. 2. Wash your hands with soap and water. If soap and water are not available, use hand straightedge worker. 3. Loosen any pins or clips that hold the tube in place. 4. If your health care provider tells you to strip the tube to prevent clots and tube blockages: Hold the tube at the skin with one hand. Use your other hand to pinch the tubing with your thumb and first finger. Gently move your fingers down the tube while squeezing very lightly. This clears any drainage, clots, or tissue from the tube. You may need to do this several times each day to keep the tube clear. Do not pull on the tube. 5. Open the bulb cap or the drain plug. Do not touch the inside of the cap or the bottom of the plug. 6. Turn the device upside down and gently squeeze. 7. Empty all of the drainage into the measuring cup. 8. Compress the bulb or the container and replace the cap or the plug. To compress the bulb or the container, squeeze it firmly in the middle while you close the cap or plug the container. 9. Write down the amount of drainage that you have in each 24-hour period. If you have less than 2 Tbsp (30 mL) of drainage during 24 hours, contact your health care provider. 10. Flush the drainage down the toilet. 11. Wash your hands with soap and water. Contact a health care provider if: You have redness, swelling, or pain around your drain area. You have pus or a bad smell coming from your drain area. You have a fever or chills. The skin around your drain is warm to the touch. The amount of drainage that you have is increasing instead of decreasing. You have drainage that is cloudy. There is a sudden stop or a sudden decrease in the amount of drainage that you have. Your drain tube falls out. Your active drain does not stay compressed after you empty it. Summary Surgical drains are used to remove extra fluid that normally builds up in a surgical wound after surgery. Different kinds of surgical drains include active drains and passive drains. Active drains use suction to pull drainage away from the surgical wound, and passive drains allow fluid to drain naturally. It is important to care for your drain to prevent infection. If your drain is placed at your back, or any other cmcy-ql-qhwqk area, ask another person to assist you. Contact your health care provider if you have redness, swelling, or pain around your drain area. This information is not intended to replace advice given to you by your health care provider. Make sure you discuss any questions you have with your health care provider. Document Released: 06/11/2001 Document Revised: 07/19/2019 Document Reviewed: 07/19/2019 [employer] Patient Education 2019 [employer] Alexandr Jackson Drain Patient Education After surgery, you may notice a bulb-like drain, called a Alexandr-Jackson (WILDER) connected to tubing coming from your incision. This drain suctions and collects fluid from your incisional area. It also promotes healing and reduces the chance of infection You may have the drain for several days after surgery. While you are hospitalized, your nurse will take care of it. If you go home with the drain in place, you will need to care for it yourself. The process is easy to learn. Your nurse will show you how. How to empty the WILDER drain 1. Empty the drainage bottle as needed (usually 3 times/day), when it is half full, or as often as directed. 2. Obtain a measuring cup to collect the fluid. 3. Wash your hands thoroughly with soap and water. 4. Unpin the bottle from your dressing or shirt. 5. Remove the rubber stopper from the bottle. 6. Turn the bottle upside-down and squeeze the contents into the measuring cup. Completely empty the bottle. Note: To prevent infection, don t let the rubber stopper or top of the bottle touch the measuring cup or anything else. 7. Clean the plug with an alcohol swab or cotton ball dipped in rubbing alcohol. 8. Use one hand to squeeze all of the air from the bottle. 9. With the bottle still compressed, use your other hand to replace the rubber stopper. Do this to make sure the drain suction works well. The bottle should stay flat until it starts to fill with fluid again. 10. Pin the bottle back on your dressing or shirt to avoid pulling it out accidently. 11. Flush the fluid down the toilet. 12. Wash your hands again. Write down the time, amount and color of the drainage. Always remember to wash your hands before and after the procedure to reduce the risk of infecting the incisional area What should I do if the tubing becomes clogged? Hold the tubing between your thumb and first finger at the place closest to your skin. This hand will prevent the tube from being pulled out of your skin. Use your other thumb and first finger to slide the clog down the tubing toward the bulb. You may have to repeat the sliding until the tubing is unclogged. When should I seek immediate care? Your WILDER drain breaks or comes out When should I contact my healthcare provider? You think your WILDER drain is blocked You have brown drainage from your WILDER drain site, or the drainage smells bad You have a fever higher than 101 F (38.6 C) You have increased pain, redness or swelling around the drain site You have questions about your WILDER drain care DRAINAGE RECORD Date Time Amount Document Released: 06/14/2006 Document Revised: 05/31/2013 Document Reviewed: 06/15/2014 ExitCare Patient Information 2015 [employer] [facility]. This information is not intended to replace advice given to you by your health care provider. Make sure you discuss any questions you have with your health care provider. Additional Information VACCINATE! IT SAVES LIVES! Members of the community who have not yet received the COVID-19 vaccine and would like to receive it can visit one of [facility] vaccine clinics. There are many vaccine clinic locations within the [facility]. For locations and available times, please visit [email or web address] It is important to note that some COVID mobile vaccine clinics are held outdoors and may be canceled in rainy or stormy conditions. To learn more about pediatric vaccinations (ages 5-11), we invite you to visit the [facility] webpage. [email or web address] To learn more about the COVID-19 vaccine, we invite you to visit the CDC website for a list of frequently asked questions.[email or web address].cdc.gov/coronavi robbi/2019-ncov/vaccines/faq.html [facility] Patient Portal Access Instructions: Stay connected with your healthcare team and access your personal medical information anytime with the [facility] Patient Portal. Please follow the directions below to create your [employer] account: 1.Access the email account you provided upon registration to the hospital/physician office.2.Look for an invitation email from [facility].3.Open the email and access the invitation link: Accept Invitation to [facility].4.Fill in the required morgan to create your account. To access your account, visit [email or web address]. Click the blue button labeled Access Patient Portal and then log in with the username and password that you created in the steps above. You will be able to view your test results, lab results, a summary of your visits, upcoming appointments and more. There is also a convenient messaging option where you can send secure messages to your provider. In addition, you will have the ability to download any documents or summaries to your computer and/or send the information securely to a physician. Remember that your healthcare information is confidential, so carefully consider who you will allow to register on the [facility] Patient Portal for access to your information. You can also access the [facility] Patient Portal on the [place] [employer] toy. Simply click on Patient Portal and then log into your account. If you would like to receive a full copy of your medical records, please contact the [facility] Medical Records Department by calling [phone], Wednesday through Wednesday between 8 a.m. and 4:30 p.m. HOW TO SAFELY DISPOSE OF PRESCRIPTION MEDICATIONS Please use one of the following methods to safely dispose of your unused medications. 1.Use a drug disposal kit: the drug disposal pouch allows you to safely discard your old and unused drugs. Ask your nurse to give you one when you are discharged.2.Visit a local take-back location: Many local pharmacies and police departments have programs that collect old and unwanted prescription drugs. Call your local pharmacy or go to http://bit.ly/0B9Jd1e to find one close to you.3.Make use of household items: Use cat litter or old coffee grounds to dispose medications if other options are not available. Mix your drugs with these household products, seal them in an airtight container and throw it into the garbage. Call [facility]: [phone] to be sure your drugs can be disposed of in this way. Some medicines may require a different approach.4.Never flush your medications down the toilet. IF YOU HAVE BEEN PRESCRIBED AN OPIOID FOR PAIN If you have been prescribed an opioid (such as hydrocodone, oxycodone or morphine), it is critical to understand the possible side effects and risks of opioid pain medications. Even when taken as directed, opioids can have several side effects including: Tolerance, meaning you might need to take more of a medication for the same pain relief. Nausea, vomiting and/or constipation. Sleepiness, dizziness, dry mouth, confusion, depression or itching. Physical dependence, meaning you have withdrawal symptoms when a medication is stopped, can develop within a few days. KNOW YOUR RESPONSIBILITIES It is important to know exactly how much and how often to take the opioid pain medications you are prescribed. Never take opioids in higher amounts or more often than prescribed. Do not combine opioids with alcohol or other drugs that cause drowsiness, such as benzodiazepines, also known as benzos, including diazepam and alprazolam, muscle relaxants or sleep aids. Never sell or share prescription opioids. This is illegal. Store opioids in a secure place and out of reach of others (including children, family, friends and visitors). The last page of this document has been signed and retained as a CHART COPY. Signatures Patient Education Materials [facility] [address] [place] [address] (03/2018)(CUSTOM) Medication Leaflets My discharge plan and instructions have been reviewed and explained to me and I,SONDRA DUVAL understand my current condition and have read and understand these discharge instructions. I have received a written copy of the plan/instructions. If I have questions, I am aware that I should contact my doctor. Patient/[employer] Signature: _ Date/Time: Relationship to Patient: Witness Name/Signature: Date/Time: [facility] 01-28-2025 Surgery Hospital Progress note Date of Service 01/28/2025 Subjective Patient resting comfortably in bed overall doing well feels good hungry pain controlled no acute events overnight Objective Vitals and Measurements T: 36.6 C (Oral) TMIN: 36.5 C (Oral) TMAX: 36.8 C (Oral) HR: 70 RR: 18 BP: 116/52 SpO2: 94% Intake and Output 7AM Yesterday to 7AM Today Intake and Output (Last 24 hours) Intake Oral Intake 630.00 Administration Information 2400.00 Platelets Amount Transfused 300.00 Output Surgical Drain, Tube Output: 435.00 Stool Count 0.00 Urine Count 10.00 Total Summary Total Intake 3330.00 Total Output 435.00 Fluid Balance 2895.00 Physical Exam No acute distress Nonlabored breathing Abdomen soft mild incisional tenderness WILDER much more serous compared to prior Moves all extremities Weight Dosing Weight: 96.9 kg (01/26/25) Dosing Weight: 96.9 kg (01/26/25) Medications Medications (8) Active Scheduled: (1) lidocaine 1% (MPF) 2 mL vial pf 2.5 mg 0.25 mL, Intradermal, prep pharm Continuous: (1) Lactated Ringers 1,000 mL 1,000 mL, Intravenous, 100 mL/hr PRN: (6) acetaminophen 325 mg Tablet 650 mg 2 tab(s), Oral, q4h acetaminophen-HYDROcodone 325-5 mg tablet 1 tab(s), Oral, q4h dextrose 50% Solution Disp syringe 50 mL 25 gram(s) 50 mL, IV Push, AsDirected morphine 2 mg/mL 1 mL syringe 2 mg 1 mL, IV Push, q3h morphine 2 mg/mL 1 mL syringe 4 mg 2 mL, IV Push, q3h ondansetron 2 mg/ 1 mL 2 mL INJ 4 mg 2 mL, IV Push, q4h Lab Results 01/28 06:48 WBC: 6.9 Hgb: 10.9 L Hct: 31.1 L Platelet: 71 L Neutrophil %: 74.2 Protime: 18.8 H PT International Ratio: 1.6 Glucose Level: 133 H Sodium Level: 140 Potassium Level: 4.0 BUN: 11.0 Creatinine Lvl (s): 0.72 01/27 23:52 Hgb: 10.3 L Hct: 29.1 L 01/27 12:21 Hgb: 11.3 L Hct: 32.4 L 01/27 11:15 Hgb: 10.4 L Hct: 29.8 L 01/27 06:39 WBC: 4.7 Hgb: 10.8 L Hct: 30.6 L Platelet: 40 L Neutrophil %: 84.3 H Protime: 20.0 H PT International Ratio: 1.7 Glucose Level: 278 H Sodium Level: 136 Potassium Level: 4.4 BUN: 14.0 Creatinine Lvl (s): 0.79 01/26 22:23 Hgb: 10.9 L Hct: 31.9 L EKG No qualifying data available. Assessment/Plan Acute postoperative pain 59-year-old female postop day #2 from cholecystectomy still having high output through the WILDER but this is much more serous today labs and vitals remained stable we will advance her diet today and hope for discharge later today. All question concerns were answered. Patient will maintain drain and follow-up with Dr. Gilbert this week. Digitally Signed by NEAL SHI DO on 01/28/2025 08:03 AM [facility] 01-27-2025 Surgery Hospital Progress note Date of Service 01/27/2025 Subjective patient was comfortably bed pain controlledTolerating diet no acute events overnight Objective Vitals and Measurements T: 36.5 C (Oral) TMIN: 36.5 C (Oral) TMAX: 37.0 C (Oral) HR: 90 RR: 20 BP: 156/64 SpO2: 95% Intake and Output 7AM Yesterday to 7AM Today Intake and Output (Last 24 hours) Intake Oral Intake 750.00 Administration Information 2400.00 Platelets Amount Transfused 300.00 Output Surgical Drain, Tube Output: 495.00 Urine Voided 750.00 Stool Count 0.00 Urine Count 6.00 Total Summary Total Intake 3450.00 Total Output 1245.00 Fluid Balance 2205.00 Physical Exam No acute distress Nonlabored breathing Abdomen soft mild incisional tenderness incision clean dry intact WILDER mostly sanguinous approximately 50 cc noted in the bulb Moves all extremities Skin warm and dry Weight Dosing Weight: 96.9 kg (01/26/25) Dosing Weight: 96.9 kg (01/26/25) Medications Medications (10) Active Scheduled: (1) lidocaine 1% (MPF) 2 mL vial pf 2.5 mg 0.25 mL, Intradermal, prep pharm Continuous: (3) Lactated Ringers 1,000 mL 1,000 mL, Intravenous, 20 mL/hr Lactated Ringers 1,000 mL 1,000 mL, Intravenous, 100 mL/hr Lactated Ringers 1,000 mL 1,000 mL, Intravenous, 20 mL/hr PRN: (6) acetaminophen 325 mg Tablet 650 mg 2 tab(s), Oral, q4h acetaminophen-HYDROcodone 325-5 mg tablet 1 tab(s), Oral, q4h dextrose 50% Solution Disp syringe 50 mL 25 gram(s) 50 mL, IV Push, AsDirected morphine 2 mg/mL 1 mL syringe 2 mg 1 mL, IV Push, q3h morphine 2 mg/mL 1 mL syringe 4 mg 2 mL, IV Push, q3h ondansetron 2 mg/ 1 mL 2 mL INJ 4 mg 2 mL, IV Push, q4h Lab Results 01/27 12:21 Hgb: 11.3 L Hct: 32.4 L 01/27 11:15 Hgb: 10.4 L Hct: 29.8 L 01/27 06:39 WBC: 4.7 Hgb: 10.8 L Hct: 30.6 L Platelet: 40 L Neutrophil %: 84.3 H Protime: 20.0 H PT International Ratio: 1.7 Glucose Level: 278 H Sodium Level: 136 Potassium Level: 4.4 BUN: 14.0 Creatinine Lvl (s): 0.79 01/26 22:23 Hgb: 10.9 L Hct: 31.9 L 01/26 17:33 Hgb: 11.3 L Hct: 32.2 L 01/26 12:49 WBC: 7.2 Hgb: 12.5 Hct: 36.0 Platelet: 75 L Neutrophil %: 75.5 H Protime: 16.5 H PT International Ratio: 1.4 EKG No qualifying data available. Assessment/Plan 59-year-old female postop day #1 status post laparoscopic cholecystectomy. Patient's drain output is continue to be fairly high through the day patient made n.p.o. although her H&H remained stable her platelets did drop and another unit of platelets have been given. Will continue n.p.o. overnight continue to assess with every 6 H&H repeat labs in the morning if labs vitals remain stable hopefully will advance diet and discharge. Digitally Signed by NEAL SHI DO on 01/27/2025 08:38 PM [facility] 01-26-2025 Anesthesiology Consult note Patient: SONDRA DUVAL Age: 59 years Sex: Female : 1965 Associated Diagnoses: None Author: LUCERO BELCHER MD Postoperative Information Post Operative Info: Post op day: Post Anesthesia Care Unit. Patient location: PACU. Assessment Postanesthesia assessment Vitals: Vital signs from flowsheet : Vital Signs 01/26/2025 13:56 EDT Temperature Oral 36.5 DegC Peripheral Pulse Rate 83 bpm Respiratory Rate 16 br/min Systolic Blood Pressure Non-Invasive 120 mmHg Diastolic Blood Pressure Non-Invasive 53 mmHg LOW Mean Arterial Pressure (NBP) 70 mmHg Blood Pressure Method Automatic Blood Pressure Location Left arm Blood Pressure Cuff Size Large Reason For Taking VItal Signs Admission 01/26/2025 13:45 EDT Temperature Temporal Artery 36.4 DegC Heart Rate Monitored 81 bpm Respiratory Rate 12 br/min LOW Systolic Blood Pressure Non-Invasive 124 mmHg Diastolic Blood Pressure Non-Invasive 56 mmHg LOW Mean Arterial Pressure (NBP) 72 mmHg Blood Pressure Location Right leg 01/26/2025 13:23 EDT Heart Rate Monitored 80 bpm Respiratory Rate 12 br/min LOW Systolic Blood Pressure Non-Invasive 125 mmHg Diastolic Blood Pressure Non-Invasive 56 mmHg LOW Mean Arterial Pressure (NBP) 73 mmHg Blood Pressure Location Right leg 01/26/2025 13:05 EDT Heart Rate Monitored 84 bpm Respiratory Rate 15 br/min Systolic Blood Pressure Non-Invasive 126 mmHg Diastolic Blood Pressure Non-Invasive 54 mmHg LOW Mean Arterial Pressure (NBP) 74 mmHg Blood Pressure Location Right leg (Modified) 01/26/2025 13:04 EDT Systolic Blood Pressure Non-Invasive 86 mmHg LOW Diastolic Blood Pressure Non-Invasive 40 mmHg Mean Arterial Pressure (NBP) 55 mmHg Blood Pressure Location Left arm 01/26/2025 12:49 EDT Heart Rate Monitored 88 bpm Respiratory Rate 18 br/min Systolic Blood Pressure Non-Invasive 108 mmHg Diastolic Blood Pressure Non-Invasive 28 mmHg Mean Arterial Pressure (NBP) 51 mmHg 01/26/2025 12:34 EDT Heart Rate Monitored 87 bpm Respiratory Rate 20 br/min Systolic Blood Pressure Non-Invasive 122 mmHg Diastolic Blood Pressure Non-Invasive 42 mmHg Mean Arterial Pressure (NBP) 62 mmHg 01/26/2025 12:19 EDT Temperature Temporal Artery 37.2 DegC Heart Rate Monitored 110 bpm HI Respiratory Rate 22 br/min HI Systolic Blood Pressure Non-Invasive 109 mmHg Diastolic Blood Pressure Non-Invasive 65 mmHg Mean Arterial Pressure (NBP) 80 mmHg 01/26/2025 12:15 EDT Heart Rate Monitored 115 bpm bpm Respiratory Rate - Anes 11 br/min br/min 01/26/2025 12:14 EDT Systolic Blood Pressure Non-Invasive 143 mmHg mmHg Diastolic Blood Pressure Non-Invasive 97 mmHg mmHg 01/26/2025 12:12 EDT Systolic Blood Pressure Non-Invasive 166 mmHg mmHg Diastolic Blood Pressure Non-Invasive 80 mmHg mmHg 01/26/2025 12:10 EDT Heart Rate Monitored 98 bpm bpm Respiratory Rate - Anes 15 br/min br/min 01/26/2025 12:08 EDT Systolic Blood Pressure Non-Invasive 87 mmHg mmHg Diastolic Blood Pressure Non-Invasive 64 mmHg mmHg 01/26/2025 12:07 EDT Systolic Blood Pressure Non-Invasive 75 mmHg mmHg Diastolic Blood Pressure Non-Invasive 51 mmHg mmHg 01/26/2025 12:06 EDT Systolic Blood Pressure Non-Invasive 78 mmHg mmHg Diastolic Blood Pressure Non-Invasive 53 mmHg mmHg 01/26/2025 12:05 EDT Temperature (Route Not Specified) 36.54 DegC DegC Heart Rate Monitored 82 bpm bpm Respiratory Rate - Anes 14 br/min br/min 01/26/2025 12:03 EDT Systolic Blood Pressure Non-Invasive 100 mmHg mmHg Diastolic Blood Pressure Non-Invasive 53 mmHg mmHg 01/26/2025 12:00 EDT Temperature (Route Not Specified) 36.48 DegC DegC Heart Rate Monitored 99 bpm bpm Respiratory Rate - Anes 15 br/min br/min 01/26/2025 11:59 EDT Systolic Blood Pressure Non-Invasive 115 mmHg mmHg Diastolic Blood Pressure Non-Invasive 78 mmHg mmHg 01/26/2025 11:57 EDT Systolic Blood Pressure Non-Invasive 136 mmHg mmHg Diastolic Blood Pressure Non-Invasive 69 mmHg mmHg 01/26/2025 11:55 EDT Temperature (Route Not Specified) 36.43 DegC DegC Heart Rate Monitored 84 bpm bpm Respiratory Rate - Anes 15 br/min br/min 01/26/2025 11:53 EDT Systolic Blood Pressure Non-Invasive 107 mmHg mmHg Diastolic Blood Pressure Non-Invasive 49 mmHg mmHg 01/26/2025 11:51 EDT Systolic Blood Pressure Non-Invasive 77 mmHg mmHg Diastolic Blood Pressure Non-Invasive 53 mmHg mmHg 01/26/2025 11:50 EDT Temperature (Route Not Specified) 36.39 DegC DegC Heart Rate Monitored 84 bpm bpm Respiratory Rate - Anes 15 br/min br/min 01/26/2025 11:47 EDT Systolic Blood Pressure Non-Invasive 100 mmHg mmHg Diastolic Blood Pressure Non-Invasive 58 mmHg mmHg 01/26/2025 11:45 EDT Temperature (Route Not Specified) 36.38 DegC DegC Heart Rate Monitored 93 bpm bpm Respiratory Rate - Anes 15 br/min br/min 01/26/2025 11:44 EDT Systolic Blood Pressure Non-Invasive 101 mmHg mmHg Diastolic Blood Pressure Non-Invasive 55 mmHg mmHg 01/26/2025 11:41 EDT Systolic Blood Pressure Non-Invasive 113 mmHg mmHg Diastolic Blood Pressure Non-Invasive 56 mmHg mmHg 01/26/2025 11:40 EDT Temperature (Route Not Specified) 36.37 DegC DegC Heart Rate Monitored 92 bpm bpm Respiratory Rate - Anes 15 br/min br/min 01/26/2025 11:38 EDT Systolic Blood Pressure Non-Invasive 82 mmHg mmHg Diastolic Blood Pressure Non-Invasive 57 mmHg mmHg 01/26/2025 11:35 EDT Temperature (Route Not Specified) 36.32 DegC DegC Heart Rate Monitored 88 bpm bpm Respiratory Rate - Anes 15 br/min br/min Systolic Blood Pressure Non-Invasive 89 mmHg mmHg Diastolic Blood Pressure Non-Invasive 53 mmHg mmHg 01/26/2025 11:32 EDT Systolic Blood Pressure Non-Invasive 107 mmHg mmHg Diastolic Blood Pressure Non-Invasive 54 mmHg mmHg 01/26/2025 11:30 EDT Temperature (Route Not Specified) 36.33 DegC DegC Heart Rate Monitored 94 bpm bpm Respiratory Rate - Anes 15 br/min br/min 01/26/2025 11:29 EDT Systolic Blood Pressure Non-Invasive 107 mmHg mmHg Diastolic Blood Pressure Non-Invasive 60 mmHg mmHg 01/26/2025 11:26 EDT Systolic Blood Pressure Non-Invasive 79 mmHg mmHg Diastolic Blood Pressure Non-Invasive 57 mmHg mmHg 01/26/2025 11:25 EDT Temperature (Route Not Specified) 36.31 DegC DegC Heart Rate Monitored 89 bpm bpm Respiratory Rate - Anes 15 br/min br/min 01/26/2025 11:23 EDT Systolic Blood Pressure Non-Invasive 86 mmHg mmHg Diastolic Blood Pressure Non-Invasive 57 mmHg mmHg 01/26/2025 11:20 EDT Temperature (Route Not Specified) 36.34 DegC DegC Heart Rate Monitored 88 bpm bpm Respiratory Rate - Anes 12 br/min br/min Systolic Blood Pressure Non-Invasive 102 mmHg mmHg Diastolic Blood Pressure Non-Invasive 55 mmHg mmHg 01/26/2025 11:17 EDT Systolic Blood Pressure Non-Invasive 95 mmHg mmHg Diastolic Blood Pressure Non-Invasive 54 mmHg mmHg 01/26/2025 11:15 EDT Temperature (Route Not Specified) 36.3 DegC DegC Heart Rate Monitored 82 bpm bpm Respiratory Rate - Anes 12 br/min br/min 01/26/2025 11:14 EDT Systolic Blood Pressure Non-Invasive 109 mmHg mmHg Diastolic Blood Pressure Non-Invasive 52 mmHg mmHg 01/26/2025 11:11 EDT Systolic Blood Pressure Non-Invasive 97 mmHg mmHg Diastolic Blood Pressure Non-Invasive 53 mmHg mmHg 01/26/2025 11:10 EDT Temperature (Route Not Specified) 36.26 DegC DegC Heart Rate Monitored 79 bpm bpm Respiratory Rate - Anes 12 br/min br/min 01/26/2025 11:09 EDT Systolic Blood Pressure Non-Invasive 77 mmHg mmHg Diastolic Blood Pressure Non-Invasive 52 mmHg mmHg 01/26/2025 11:05 EDT Temperature (Route Not Specified) 36.24 DegC DegC Heart Rate Monitored 83 bpm bpm Respiratory Rate - Anes 12 br/min br/min Systolic Blood Pressure Non-Invasive 113 mmHg mmHg Diastolic Blood Pressure Non-Invasive 53 mmHg mmHg 01/26/2025 11:02 EDT Systolic Blood Pressure Non-Invasive 119 mmHg mmHg Diastolic Blood Pressure Non-Invasive 58 mmHg mmHg 01/26/2025 11:00 EDT Signs/Symptoms Transfusion Reaction No 01/26/2025 11:00 EDT Temperature (Route Not Specified) 36.23 DegC DegC Heart Rate Monitored 81 bpm bpm Respiratory Rate - Anes 12 br/min br/min Systolic Blood Pressure Non-Invasive 117 mmHg mmHg Diastolic Blood Pressure Non-Invasive 63 mmHg mmHg 01/26/2025 10:56 EDT Systolic Blood Pressure Non-Invasive 106 mmHg mmHg Diastolic Blood Pressure Non-Invasive 54 mmHg mmHg 01/26/2025 10:55 EDT Temperature (Route Not Specified) 36.21 DegC DegC Heart Rate Monitored 78 bpm bpm Respiratory Rate - Anes 12 br/min br/min 01/26/2025 10:53 EDT Systolic Blood Pressure Non-Invasive 109 mmHg mmHg Diastolic Blood Pressure Non-Invasive 59 mmHg mmHg 01/26/2025 10:50 EDT Temperature (Route Not Specified) 36.15 DegC DegC Heart Rate Monitored 79 bpm bpm Respiratory Rate - Anes 12 br/min br/min Systolic Blood Pressure Non-Invasive 114 mmHg mmHg Diastolic Blood Pressure Non-Invasive 59 mmHg mmHg 01/26/2025 10:48 EDT Systolic Blood Pressure Non-Invasive 108 mmHg mmHg Diastolic Blood Pressure Non-Invasive 63 mmHg mmHg 01/26/2025 10:45 EDT Temperature (Route Not Specified) 36.04 DegC DegC Heart Rate Monitored 78 bpm bpm Respiratory Rate - Anes 12 br/min br/min 01/26/2025 10:44 EDT Systolic Blood Pressure Non-Invasive 127 mmHg mmHg Diastolic Blood Pressure Non-Invasive 72 mmHg mmHg 01/26/2025 10:41 EDT Systolic Blood Pressure Non-Invasive 124 mmHg mmHg Diastolic Blood Pressure Non-Invasive 67 mmHg mmHg 01/26/2025 10:40 EDT Heart Rate Monitored 67 bpm bpm Respiratory Rate - Anes 12 br/min br/min 01/26/2025 10:38 EDT Systolic Blood Pressure Non-Invasive 80 mmHg mmHg Diastolic Blood Pressure Non-Invasive 54 mmHg mmHg 01/26/2025 10:35 EDT Heart Rate Monitored 75 bpm bpm Respiratory Rate - Anes 14 br/min br/min 01/26/2025 10:34 EDT Systolic Blood Pressure Non-Invasive 80 mmHg mmHg Diastolic Blood Pressure Non-Invasive 56 mmHg mmHg 01/26/2025 10:30 EDT Heart Rate Monitored 85 bpm bpm Respiratory Rate - Anes 14 br/min br/min 01/26/2025 10:25 EDT Heart Rate Monitored 81 bpm bpm Respiratory Rate - Anes 13 br/min br/min Systolic Blood Pressure Non-Invasive 127 mmHg mmHg Diastolic Blood Pressure Non-Invasive 105 mmHg mmHg 01/26/2025 10:22 EDT Systolic Blood Pressure Non-Invasive 117 mmHg mmHg Diastolic Blood Pressure Non-Invasive 80 mmHg mmHg 01/26/2025 10:20 EDT Respiratory Rate - Anes 0 br/min br/min 01/26/2025 8:10 EDT Temperature Temporal Artery 36.5 DegC Apical Heart Rate 82 bpm Respiratory Rate 16 br/min Systolic Blood Pressure Non-Invasive 127 mmHg Diastolic Blood Pressure Non-Invasive 66 mmHg . Mental status: at preoperative baseline. Respiratory function: respirations are non-labored, Stable. Respiratory support: none. CV function: Stable. Cardiovascular support: none. Pain: Satisfactory. Nausea status: Satisfactory. Postoperative hydration status: within normal limits. Notes: Patient is sufficiently recovered from anesthesia to participate in the evaluation. No follow-up care needed. No complications post-anesthesia.. Digitally Signed by LUCERO BELCHER MD on 01/26/2025 02:31 PM [facility] 01-26-2025 History and physical note Date of Service 01/26/2025 History and Physical Update I have examined the patient; reviewed the History and Physical and there are no changes to the History and Physical unless noted below. Digitally Signed by ILEANA GILBERT MD on 01/26/2025 09:51 AM [facility] 01-26-2025 Anesthesiology Consult note Patient: SONDRA DUVAL Age: 59 years Sex: Female : 1965 Associated Diagnoses: None Author: EDIS PINEDA DO Preoperative Information NPO greater than 8 hours food and greater than 2 hours liquid Anesthesia history Patient's history: negative. Health Status Allergies: Allergic Reactions (Selected) Moderate Statins- Painful joint. Severity Not Documented Penicillin- Hives., Allergies (2) ActiveSeverityReaction StatinsModeratePainful joint penicillinHives Current medications: (Selected) Inpatient Medications Ordered Dextrose 50% IV Push: 25 gram(s), 50 mL, IV Push, AsDirected, PRN: Low blood sugar LR 1,000 mL: 20 mL/hr, Intravenous LR 1,000 mL: 20 mL/hr, Intravenous NS 250 mL 250 mL: 20 mL/hr, Intravenous, Stop: 01/26/25 14:01:00 EDT Toradol: 30 mg, 1 mL, IV Push, Once gabapentin: 300 mg, 1 cap(s), Oral, Once indocyanine green: 5 mg, 2 mL, IV Push, Once lidocaine 1% preservative-free injectable solution: 2.5 mg, 0.25 mL, Intradermal, prep pharm Prescriptions Prescribed Blood Glucose Test Machine: See Instructions, testing once daily, 1 EA, 0 Refill(s) Blood Glucose Test Strips: See Instructions, testing once daily, 1 EA, 0 Refill(s) Lancets: See Instructions, testing once daily, 1 EA, 0 Refill(s) Mounjaro 12.5 mg/0.5 mL subcutaneous solution: 12.5 mg, Subcutaneous, qWeek, rotate injection sites, 2 mL, 6 Refill(s) furosemide 20 mg oral tablet: 20 mg, 1 tab(s), Oral, qDay, PRN: Swelling, 30 tab(s), 5 Refill(s) mupirocin 2% topical ointment: 1 toy, Topical, BID, Bilateral intranasal application twice daily x 5 days pre-surgery &/or as many days pre-surgery as possible., 22 gram(s), 0 Refill(s) potassium chloride 10 mEq oral capsule, extended release: 10 mEq, 1 cap(s), Oral, BID, 60 cap(s), 11 Refill(s) Documented Medications Documented aspirin 81 mg oral delayed release tablet: 81 mg, 1 tab(s), Oral, qDay, 30 tab(s), 0 Refill(s) ferrous sulfate 325 mg (65 mg elemental iron) oral delayed release tablet: 325 mg, 1 tab(s), Oral, BID, 30 tab(s), 0 Refill(s), Medications (8) Active Scheduled: (4) gabapentin 300 mg Capsule 300 mg 1 cap(s), Oral, Once indocyanine green 25 mg 5 mg 2 mL, IV Push, Once ketorolac 30 mg/mL (1 mL) vial 30 mg 1 mL, IV Push, Once lidocaine 1% (MPF) 2 mL vial pf 2.5 mg 0.25 mL, Intradermal, prep pharm Continuous: (3) Lactated Ringers 1,000 mL 1,000 mL, Intravenous, 20 mL/hr Lactated Ringers 1,000 mL 1,000 mL, Intravenous, 20 mL/hr Sodium Chloride 0.9% 250 mL 250 mL, Intravenous, 20 mL/hr PRN: (1) dextrose 50% Solution Disp syringe 50 mL 25 gram(s) 50 mL, IV Push, AsDirected Problem list: Medical Anemia / SNOMED CT 403644591 / Confirmed Aortic stenosis / SNOMED CT 009974048 / Confirmed Back pain / SNOMED CT 321607117 / Confirmed Cholelithiasis / SNOMED CT 550263368 / Confirmed Hematuria / SNOMED CT 925441544 / Confirmed CAD - Coronary artery disease / SNOMED CT 8484654900 / Confirmed Cirrhosis of liver / SNOMED CT 25313096 / Confirmed Hidradenitis suppurativa / SNOMED CT 89223724 / Confirmed S/P CABG (coronary artery bypass graft) / SNOMED CT 9721721055 / Confirmed Hypertension / SNOMED CT 8342875999 / Confirmed Hypokalemia / SNOMED CT 36460724 / Confirmed Intertrigo / SNOMED CT 49587247 / Confirmed Elevated liver enzymes / SNOMED CT 6293060826 / Confirmed Major depression / SNOMED CT 9954642054 / Confirmed Hyperlipemia, mixed / SNOMED CT 252923344 / Confirmed Nodular hyperplasia of liver / SNOMED CT 323548414 / Confirmed Pancytopenia / SNOMED CT 481658 / Confirmed Paresthesia of left arm / SNOMED CT 1036812780 / Confirmed Preop cardiovascular exam / SNOMED CT 209096207 / Confirmed Screening for breast cancer / SNOMED CT 176019492 / Confirmed Portal hypertension / SNOMED CT 23660027 / Confirmed Type 2 diabetes mellitus / SNOMED CT 622486009 / Confirmed Vitamin D deficiency / SNOMED CT 81401249 / Confirmed Canceled: Acute maxillary sinusitis / SNOMED CT 750250932 Canceled: Acute maxillary sinusitis / SNOMED CT 015233358 Canceled: Right ankle pain / SNOMED CT 893359506 Canceled: Anxiety due to invasive procedure / SNOMED CT 79141020 Canceled: Carpal tunnel / SNOMED CT 792558026 Canceled: Chest pain in adult / SNOMED CT 11790122 Canceled: Chest pain / SNOMED CT 31722695 Canceled: COPD - Chronic obstructive pulmonary disease / SNOMED CT 112765485 Canceled: SOB (shortness of breath) / SNOMED CT 637247884 Canceled: Lower extremity edema / SNOMED CT 645541392 Canceled: Fall / ICD-9-CM E888.9 Canceled: Fatigue / SNOMED CT 219139162 Canceled: Hidradenitis suppurativa / SNOMED CT 13627904 Canceled: Hyperlipidemia / SNOMED CT 63573203 Canceled: Abnormal chest x-ray / SNOMED CT 0675849513 Canceled: Kidney stones / SNOMED CT 797729994 Canceled: Right knee pain / SNOMED CT 78731871 Canceled: Skin lesion of foot / SNOMED CT 7243563880 Canceled: Leukopenia / SNOMED CT 537045804 Canceled: Skin lesion of right leg / SNOMED CT 6752678791 Canceled: Memory problem / SNOMED CT 8804755161 Canceled: Preoperative clearance / SNOMED CT 623947703 Canceled: RUQ pain / SNOMED CT 800308798 Canceled: Postprandial abdominal pain in right upper quadrant / SNOMED CT 071495426 Canceled: Left shoulder pain / SNOMED CT 43465183 Canceled: Swallowing problem / SNOMED CT 3385463554 Canceled: Diabetes mellitus type 2, uncontrolled / SNOMED CT 6120478412 Canceled: Vitamin D deficiency / SNOMED CT 29755655, Active Problems (32) Acid reflux Anemia Anxiety Aortic stenosis Arthritis Back pain BMI 36.0-36.9,adult CAD - Coronary artery disease Cardiac murmur Cholelithiasis Cirrhosis of liver Depression Elevated liver enzymes Glasses Heart attack Hematuria Hidradenitis suppurativa Hyperlipemia, mixed Hypertension Hypokalemia Intertrigo Major depression Nodular hyperplasia of liver Pancytopenia Paresthesia of left arm Portal hypertension Preop cardiovascular exam S/P CABG (coronary artery bypass graft) Screening for breast cancer Thrombocytopenia Type 2 diabetes mellitus Vitamin D deficiency Histories Past Medical History: No active or resolved past medical history items have been selected or recorded. Family History: Cancer Sister Breast cancer Sister Hypertension Father Heart disease Mother Father Sister Brother Epilepsy Daughter Atrial fibrillation Sister Stroke Mother Sister Father Heart attack Brother Hyperlipidemia Mother Alzheimer's disease Mother Procedure history: Carpal tunnel release ([id number]) in the month of 10/2024 at 59 Years. EGD - esophagogastroduodenoscopy ([id number]) in 2024 at 59 Years. Knee arthroplasty ([id number]) on 06/10/2021 at 55 Years. Comments: 06/10/2021 12:13 KYLE Culver right Cardiac catheterization ([id number]) on 12/28/2017 at 52 Years. Comments: 11/03/2023 9:32 Caryn Mcfadden CMA, Clinical Lead [facility]: 2 vessel [place] artery CAD.80% mid-LCX stenosis. 50% proximal OM1 stenosis. 90% proximal followed by 99% distal RCA. Patent ARMSTRONG to mid LAD. Patent SVG to OM! & OM2. Patent SVG to posterior descending & posterolateral branches. Nomral LV end diastolic pressure 17 mmHg. Exploration ([id number]) in 2016 at 50 Years. Comments: 01/23/2025 11:59 Barbara Tompkins RN sternal wound Coronary artery bypass grafts x 5 ([id number]) in the month of 07/2015 at 49 Years. Comments: 11/03/2023 10:45 Caryn Mcfadden CMA, Clinical Lead [facility]- X's 5 Hysterectomy ([id number]). Oophorectomy ([id number]). Comments: 04/25/2019 15:44 Bianca Sorto LPN bilateral delivery ([id number]). Comments: 04/25/2019 15:45 Bianca Sorto LPN twice Operation ([id number]). Comments: 01/23/2025 11:53 Barbara Tompkins RN L4-L5 cleaned out Arthroscopy of knee ([id number]). Comments: 01/23/2025 11:58 Barbara Tompkins RN x 3 Social History: Social & Psychosocial Habits Alcohol 01/23/2025 Use: Current Frequency: 1-2 times per year Substance Abuse 01/23/2025 Use: Never Tobacco 01/23/2025 Tobacco Use: Former smoker, quit more Type: Cigarettes Started at age: 16 Years Stopped at age: 52 Years Comment: daily sister smokes out of doors - 05/10/2019 09:18 - Ivana Mcpherson RN; quit in 2018 - 11/03/2023 10:44 - Caryn Ward CMA, Clinical Lead Home/Environment 01/23/2025 Living situation: Home/Independent Financial concerns: Yes Domestic Concerns Denies Primary Supervisor Special Services: self Lives In 1st floor bathroom, 1st floor bedroom, 2nd floor bathroom, Multilevel home Current Home Treatments None Special Services and Community Resources None Marital Status of Patient if Patient Independent Adult: Unmarried Nutrition/Health 01/23/2025 Type of diet: Diabetic, Regular Caffeine intake amount: occasionally Appetite Good Eating Difficulties None Enteral Feedings No TPN Feedings No Skin Breakdown/Decubitus Ulcers No Physical Examination No qualifying data available General: Alert and oriented. Airway: Mallampati classification: II (soft palate, fauces, uvula visible). Dentition Evaluation: Intact. Respiratory: Lungs are clear to auscultation, Respirations are non-labored. Cardiovascular: Normal rate, Regular rhythm. Heart Sounds: Normal. Neurologic: Alert, Oriented. Review / Management Results review: No qualifying data available . Documentation reviewed: Current records. Assessment and Plan Citizen Of [place] Society of Anesthesiologists (ASA) physical status classification: Class III. Anesthetic Preoperative Plan Premedication: intravenous. Anesthetic technique: General. Induction: intravenously. Maintenance airway: Oral endotracheal tube. Postoperative pain management: Per surgeon. Risks discussed: nausea, vomiting, headache, sore throat, dental injury, hypotension, allergic reaction, serious complications. Informed consent: signed by patient. Notes: Patient seen and evaluated pre-operatively by Anesthesiologist. ASA 3 or greater due to the following comorbidities: Acid reflux (controlled with as needed Tums), anemia, anxiety, aortic stenosis, arthritis, CAD, cardiac murmur, cholelithiasis, liver cirrhosis, depression, myocardial infarction, hidradenitis, hyperlipidemia, hypertension, hypokalemia, nodular hyperplasia of liver, pancytopenia, portal hypertension, thrombocytopenia, type 2 diabetes mellitus, vitamin D deficiency, CABG x 5 (2016 ARMSTRONG to LAD and SVGs to 1st and 2nd obtuse marginal branches, PDA, posterior lateral branch). . Digitally Signed by EDIS PINEDA DO on 01/26/2025 08:07 AM [facility] 01-17-2025 Note Vitals: -Weight: 211.6 lbs History & Physical: Sondra returns to [facility] for follow up on diabetes management and an A1c check. Last A1c was well controlled at 5.8%. She is currently managed on Mounjaro 12.5mg weekly. Of note, she is having her gallbladder removed. Reviewed general surgery and PCP note and no mention was made of gallbladder related issues secondary to Mounjaro use. Will assess today to determine plan for moving forward. She has been using Mounjaro at higher doses to help with weight loss in addition to diabetes control. Past Medical History: Problems Active Cholelithiasis Paresthesia of left arm Intertrigo Aortic stenosis Back pain Hematuria Portal hypertension Cirrhosis of liver Nodular hyperplasia of liver Hypokalemia Screening for breast cancer Hidradenitis suppurativa Pancytopenia Elevated liver enzymes Hypertension Type 2 diabetes mellitus Anemia Preop cardiovascular exam Hyperlipemia, mixed S/P CABG (coronary artery bypass graft) CAD - Coronary artery disease Major depression Vitamin D deficiency Current Medications: aspirin: 81 mg = 1 tab(s), Oral, Daily DME: See Instructions, testing once daily DME: See Instructions, testing once daily DME: See Instructions, testing once daily ezetimibe: 10 mg = 1 tab(s), Oral, qDay ferrous sulfate: 325 mg = 1 tab(s), Oral, qDay furosemide: 20 mg = 1 tab(s), Oral, qDay, PRN (Swelling) potassium chloride: 10 mEq = 1 cap(s), Oral, BID tirzepatide: 12.5 mg, Subcutaneous, qWeek, rotate injection sites Labs: -POC B mg/dLPOC HbA1c: 5.7% (01/17/25) Diabetes Labs No qualifying data available. Diabetes Type I Labs Cholesterol: 185 mg/dL (07/22/24) HDL Cholesterol: 62 mg/dL High (07/22/24) LDL Cholesterol: 105 mg/dL (07/22/24) Triglycerides: 92 mg/dL (07/22/24) Creatinine Lvl (s): 0.82 mg/dL (12/21/24) TSH: 0.96 mcIU/mL (07/22/24) Hgb A1c: 7.7 % High (05/28/21) Yearly Diabetic Exams: -Eye Exam: Completed, up to date -Foot Exam: Completed by primary care provider Blood Glucose Monitoring: Has not been checking her sugars at home. Acute Complications: -Hypoglycemia: Denies signs or symptoms -Hyperglycemia: Denies signs or symptoms Nutrition & Physical Activity: Encouraged her to start watching her diet and exercise more closely. Instructed her to start walking 3-4x per week for 30 minutes and increase protein. Assessment and Plan: Sondra's A1c remains under excellent control at 5.7%. She has been compliant with her medications. She is frustrated because she feels like her weight loss has plateaued. Explained that her body is under stress right now with needing her gallbladder taken out. Reviewed both PCP and general surgery note and no mention of Mounjaro was made in regards to gallbladder. She will skip her dose prior to surgery next week and then resume as directed by general surgery. For right now will make no medication changes, but she is considering reducing the Mounjaro dose to resume the metformin. She wishes to continue her current regimen for 3 more months and then assess her progress. Agreeable to plan and will see her back in 3 months for follow up. Instructed her to call with any concerns. Total time spent caring for the patient today was 25 minutes. This includes time spent before the visit reviewing the chart (lab results, past visit documentation, etc.), time spent during the visit, and time spend after the visit on documentation, etc. Digitally Signed by Adry PrietoD on 01/18/2025 08:59 AM [facility] 12-28-2024 Note Exam Date Time Procedure Performing Provider Status 12/28/24 8:04 AM US Abdomen Complete LIZ NAVARRO MD; Auth (Verified) [id number] ORIGINAL EXAMINATION: COMPLETE ABDOMINAL ULTRASOUND 12/28/2024 8:11 am COMPARISON: Abdominal ultrasound dated 08/25/2024 HISTORY: ORDERING SYSTEM PROVIDED HISTORY: Reason for Exam: Cholelithiasis, rule out abdominal ascites FINDINGS: LIVER: The liver demonstrates increased echogenicity without evidence of intrahepatic biliary ductal dilatation. There is heterogeneous echotexture and lobular contour. The liver measures 16 cm. BILIARY SYSTEM: The gallbladder wall measures 3 mm. There is an echogenic nonmobile shadowing focus at the gallbladder neck measuring 1.4 x 1.3 by 1.5 cm. There is no evidence of twinkle artifact on Doppler. Common bile duct is within normal limits measuring 3.7 mm. KIDNEYS: The kidneys are unremarkable in appearance without evidence of hydronephrosis. The right kidney measures 10.6 cm in the left kidney measures 12.5 cm. PANCREAS: The pancreas partially obscured due to shadowing bowel gas. SPLEEN: The spleen is unremarkable in appearance. The spleen is enlarged measuring 16.2 cm. There are multiple splenic varices. IVC: The IVC is patent. AORTA: Aorta is patent without aneurysm. OTHER: No evidence of ascites. IMPRESSION: 1. Findings compatible with hepatic cirrhosis and sequela of portal hypertension including splenomegaly and splenic varices. 2. Nonmobile shadowing focus at the gallbladder neck measuring 1.4 x 1.3 x 1.5 cm. Differential includes a gallstone versus polyp. Consider CT of the abdomen for confirmation. Per SRU criteria gallbladder consensus conference guidelines a polyp of this size would be recommended for surgical consult. Interpreted by: Liz Navarro Preliminary Report By: Liz Navarro Electronically signed By Liz Navarro Dictated Date: 12/28/2024 9:07:50 AM Prelim Date: 12/28/2024 9:13:25 AM Sign Date: 12/28/2024 9:13:25 AM Ordering Provider: ILEANA GILBERT Interpreted by: Liz Navarro Preliminary Report By: Liz Navarro Electronically signed By Liz Navarro Dictated Date: 12/28/2024 9:07:50 AM Prelim Date: 12/28/2024 9:13:25 AM Sign Date: 12/28/2024 9:13:25 AM Ordering Provider: ILEANA GILBERT [facility]03-20-2025 Note Vitals: - BP: 137/52mmHg - Weight: 210.1lbs (09/12/24) History and Physical: [facility] for follow up on diabetes management and an A1c check. Her last A1c was well controlled at 5.6% in May. She is currently managed on Mounjaro 10mg weekly. She is also hoping to benefit from the weight loss side effect of Mounjaro. Past Medical History: Problems Active Intertrigo Right ankle pain Aortic stenosis Kidney stones Back pain Hematuria Portal hypertension Cirrhosis of liver Nodular hyperplasia of liver Hypokalemia Screening for breast cancer Hidradenitis suppurativa Leukopenia Pancytopenia Elevated liver enzymes Hypertension Memory problem Swallowing problem Type 2 diabetes mellitus Anemia Preop cardiovascular exam Hyperlipemia, mixed S/P CABG (coronary artery bypass graft) CAD - Coronary artery disease Carpal tunnel Major depression Vitamin D deficiency Current Medications: aspirin: 81 mg = 1 tab(s), Oral, Daily clindamycin topical: 1 toy, Topical, BID DME: See Instructions, testing once daily DME: See Instructions, testing once daily DME: See Instructions, testing once daily evolocumab: 140 mg, Subcutaneous, q2wk, rotate injection sites ezetimibe: 10 mg = 1 tab(s), Oral, qDay ferrous sulfate: 325 mg = 1 tab(s), Oral, qDay furosemide: 20 mg = 1 tab(s), Oral, qDay, PRN (Swelling) nystatin topical: 1 toy, Topical, BID potassium chloride: 10 mEq = 1 cap(s), Oral, BID tirzepatide: 10 mg, Subcutaneous, qWeek, rotate injection sites Labs: - POC Bmg/dL - POC HbA1c: 5.8% (09/13/24) - Microalbumin: 27mcg/mg (05/18/23) Diabetes Labs No qualifying data available. Diabetes Type I Labs Cholesterol: 185 mg/dL (07/22/24) HDL Cholesterol: 62 mg/dL High (07/22/24) LDL Cholesterol: 105 mg/dL (07/22/24) Triglycerides: 92 mg/dL (07/22/24) Creatinine Lvl (s): 0.74 mg/dL (07/22/24) TSH: 0.96 mcIU/mL (07/22/24) Hgb A1c: 7.7 % High (05/28/21) Yearly Diabetic Exams: - Eye Exam: Completed - Foot Exam: Completed by PCP Blood Glucose Monitoring: has not been checking her sugars at home. Acute Complications: - Hypoglycemia: Denies signs or symptoms - Hyperglycemia: Denies signs or symptoms Nutrition & Physical Activity: Patient stated that the Mounjaro has not really effected her appetite. She does state that she has been eating a little bit better and has been snacking on more vegetables. 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 Stated that she has begun taking more frequent walks around the halls of her work to get steps in throughout the day. Assessment & Plan: Sondra's A1c today was at goal at 5.8%. She did completely stop the metformin, but asked about goingback on it due to her hidradenitis suppurativa flaring up after discontinuation. Did see there werestudies that supported the use of metformin in HS. Gave patient option of staying at Mounjaro 10mg weekly and to start taking metformin 500mg daily or to increase the Mounjaro to 12.5mg weekly and continue not taking metformin to avoid low blood sugars. Patient agreed to starting Mounjaro 12.5mg and stay off of metformin. Patient stated she will talk to PCP about other options or get a referral to [facility] for her HS. Will increase to Mounjaro 12.5mg weekly. Gave patient the option for 6 month follow up due to her A1c consistently being in range. Patient declined and wishes to follow up in 3 months for A1c check and to discuss the Mounjaro titration. Instructed patient to call the clinic if she has any GI side effects with the increased dose of Mounjaro or if she has any questionsor concerns prior to next appointment. Total time spent caring for the patient today was 22 minutes. This includes time spent before the visit reviewing the chart (lab results, past visit documentation, reviewing CGM data, etc.), time spent during the visit, and time spent after the visit on documentation, sending in prescriptions, consulting peers, etc. Digitally Signed by Jaya Corey on 09/14/2024 03:57 PM [facility]03-19-2025 Note Vitals: - BP: 137/52mmHg - Weight: 210.1lbs (09/12/24) History and Physical: [facility] for follow up on diabetes management and an A1c check. Her last A1c was well controlled at 5.6% in May. She is currently managed on Mounjaro 10mg weekly. She is also hoping to benefit from the weight loss side effect of Mounjaro. Past Medical History: Problems Active Intertrigo Right ankle pain Aortic stenosis Kidney stones Back pain Hematuria Portal hypertension Cirrhosis of liver Nodular hyperplasia of liver Hypokalemia Screening for breast cancer Hidradenitis suppurativa Leukopenia Pancytopenia Elevated liver enzymes Hypertension Memory problem Swallowing problem Type 2 diabetes mellitus Anemia Preop cardiovascular exam Hyperlipemia, mixed S/P CABG (coronary artery bypass graft) CAD - Coronary artery disease Carpal tunnel Major depression Vitamin D deficiency Current Medications: aspirin: 81 mg = 1 tab(s), Oral, Daily clindamycin topical: 1 toy, Topical, BID DME: See Instructions, testing once daily DME: See Instructions, testing once daily DME: See Instructions, testing once daily evolocumab: 140 mg, Subcutaneous, q2wk, rotate injection sites ezetimibe: 10 mg = 1 tab(s), Oral, qDay ferrous sulfate: 325 mg = 1 tab(s), Oral, qDay furosemide: 20 mg = 1 tab(s), Oral, qDay, PRN (Swelling) nystatin topical: 1 toy, Topical, BID potassium chloride: 10 mEq = 1 cap(s), Oral, BID tirzepatide: 10 mg, Subcutaneous, qWeek, rotate injection sites Labs: - POC Bmg/dL - POC HbA1c: 5.8% (09/13/24) - Microalbumin: 27mcg/mg (05/18/23) Diabetes Labs No qualifying data available. Diabetes Type I Labs Cholesterol: 185 mg/dL (07/22/24) HDL Cholesterol: 62 mg/dL High (07/22/24) LDL Cholesterol: 105 mg/dL (07/22/24) Triglycerides: 92 mg/dL (07/22/24) Creatinine Lvl (s): 0.74 mg/dL (07/22/24) TSH: 0.96 mcIU/mL (07/22/24) Hgb A1c: 7.7 % High (05/28/21) Yearly Diabetic Exams: - Eye Exam: Completed - Foot Exam: Completed by PCP Blood Glucose Monitoring: has not been checking her sugars at home. Acute Complications: - Hypoglycemia: Denies signs or symptoms - Hyperglycemia: Denies signs or symptoms Nutrition & Physical Activity: Patient stated that the Mounjaro has not really effected her appetite. She does state that she has been eating a little bit better and has been snacking on more vegetables. 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 Stated that she has begun taking more frequent walks around the halls of her work to get steps in throughout the day. Assessment & Plan: Sondra's A1c today was at goal at 5.8%. She did completely stop the metformin, but asked about goingback on it due to her hidradenitis suppurativa flaring up after discontinuation. Did see there werestudies that supported the use of metformin in HS. Gave patient option of staying at Mounjaro 10mg weekly and to start taking metformin 500mg daily or to increase the Mounjaro to 12.5mg weekly and continue not taking metformin to avoid low blood sugars. Patient agreed to starting Mounjaro 12.5mg and stay off of metformin. Patient stated she will talk to PCP about other options or get a referral to [facility] for her HS. Will increase to Mounjaro 12.5mg weekly. Gave patient the option for 6 month follow up due to her A1c consistently being in range. Patient declined and wishes to follow up in 3 months for A1c check and to discuss the Mounjaro titration. Instructed patient to call the clinic if she has any GI side effects with the increased dose of Mounjaro or if she has any questionsor concerns prior to next appointment. Total time spent caring for the patient today was 22 minutes. This includes time spent before the visit reviewing the chart (lab results, past visit documentation, reviewing CGM data, etc.), time spent during the visit, and time spent after the visit on documentation, sending in prescriptions, consulting peers, etc. Digitally Signed by Jaya Corey on 09/14/2024 03:57 PM [facility]02-28-2025 Note* Exam Date Time Procedure Performing Provider Status 08/25/24 7:15 AM US Abdomen Limited DANIEL JO DO; Auth (Verified) [id number] ORIGINAL EXAMINATION: RIGHT UPPER QUADRANT ULTRASOUND 08/25/2024 7:18 am COMPARISON: CT abdomen pelvis 03/31/2024 HISTORY: ORDERING SYSTEM PROVIDED HISTORY: Reason for Exam: CIRRHOSIS All images are recorded and archived. FINDINGS: LIVER: Liver demonstrates macro lobular contour and diffuse coarsening of the a hepatic echotexture and masking of the portal triads. Liver measures 17.3 cm in greatest length. BILIARY SYSTEM: Gallbladder is partially contracted containing multiple shadowing stones. Gallbladder wall is prominent measuring 4 mm. There is no ultrasound West sign. Common bile duct is within normal limits measuring 6 mm. RIGHT KIDNEY: The right kidney is grossly unremarkable without evidence of hydronephrosis. Right kidney measures 11.2 x 4.6 x 5.2 cm. There is normal renal cortical thickness and echotexture. PANCREAS: Visualized portions of the pancreas are unremarkable. OTHER: No evidence of right upper quadrant ascites. IMPRESSION: 1. Findings compatible with hepatic cirrhosis. 2. Cholelithiasis with mild gallbladder wall thickening. This may be related to the patient's underlying liver disease. If there is clinical concern for acute cholecystitis, HIDA scan may be obtained for further assessment. Interpreted by: Daniel Jo DO Preliminary Report By: Daniel Jo DO Electronically signed By Daniel Jo DO Dictated Date: 08/25/2024 8:42:52 AM Prelim Date: 08/25/2024 8:45:01 AM Sign Date: 08/25/2024 8:45:01 AM Ordering Provider: SOY CRUMP [facility]12-19-2024 Note Vitals: -Weight: 210.4 lbs History & Physical: Sondra returns to [facility] for follow up on diabetes management and an A1c check. Last A1c was well controlled at 6.2%. She is currently managed on metformin 1000mg BID and Mounjaro 7.5mg weekly to control her sugars. She is also hoping to benefit from the weight loss side effect of Mounjaro.Would like to get her off of metformin if possible. Past Medical History: Problems Active Back pain Hematuria Portal hypertension Cirrhosis of liver Nodular hyperplasia of liver Hypokalemia Screening for breast cancer Hidradenitis suppurativa Leukopenia Pancytopenia Elevated liver enzymes Hypertension Memory problem Swallowing problem Type 2 diabetes mellitus Anemia Preop cardiovascular exam Hyperlipemia, mixed S/P CABG (coronary artery bypass graft) CAD - Coronary artery disease Carpal tunnel Major depression Vitamin D deficiency Current Medications: acetaminophen-hydrocodone: TAKE 1 TO 2 TABLETS BY MOUTH EVERY 6 HOURS FOR 5 DAYS NEEDED FOR PAIN aspirin: 81 mg = 1 tab(s), Oral, Daily cholecalciferol: 625 mcg = 1 cap(s), Oral, qWeek DME: See Instructions, testing once daily DME: See Instructions, testing once daily DME: See Instructions, testing once daily evolocumab: 140 mg, Subcutaneous, q2wk, rotate injection sites ferrous sulfate: 325 mg = 1 tab(s), Oral, qDay furosemide: 20 mg = 1 tab(s), Oral, qDay metFORMIN: 2,000 mg = 4 tab(s), Oral, qDay ondansetron: TAKE 1 TABLET BY MOUTH EVERY 6 HOURS FOR 5 DAYS NEEDED FOR NAUSEA/VOMITING potassium chloride: 10 mEq = 1 cap(s), Oral, BID tirzepatide: 7.5 mg, Subcutaneous, qWeek, rotate injection sites Labs: -POC B mg/dLPOC HbA1c: 5.6% (06/15/24) -Microalbumin:SCr: 27 mcg/mg (05/18/23) Diabetes Labs No qualifying data available. Diabetes Type I Labs Cholesterol: 235 mg/dL High (11/12/23) HDL Cholesterol: 53 mg/dL (11/12/23) LDL Cholesterol: 158 mg/dL High (11/12/23) Triglycerides: 118 mg/dL (11/12/23) Creatinine Lvl (s): 0.83 mg/dL (03/31/24) TSH: 1.57 mcIU/mL (03/09/23) Hgb A1c: 7.7 % High (05/28/21) Yearly Diabetic Exams: -Eye Exam: Completed in 2023 -Foot Exam: Due for foot exam in 2023, denies any neuropathy issues Blood Glucose Monitoring: Has not been checking her sugars at home. Acute Complications: -Hypoglycemia: Denies signs or symptoms -Hyperglycemia: Denies signs or symptoms Nutrition & Physical Activity: Appetite has been significantly suppressed with the Mounjaro. Discussed the importance of having smaller more frequent meals the Mounjaro. She is snacking on small things at home, but are not things that hold nutritional value. Discussed some balanced healthy snacks to eat or small meals to keep her fueled throughout the day. 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 Assessment and Plan: A1c is all the way down to 5.6% today. She states she is having no symptoms of low blood sugars, but concerned with sugars getting too low. No readings are available to review. She was supposed to reduce metformin to 500mg BID or stop it but she continued on 1000mg BID and the Mounjaro 7.5mg. She wishes to go up to the 10mg dose of Mounjaro, but explained that she must reduce the metformin to 500mg BID a minimum. If her sugars remain stable at this dose, then she needs to try stopping the metformin to prevent hypoglycemia. She has lost 15lbs since August. Congratulated her on the weight loss. She is going to focus on eating smaller more frequent meals or snacks throughout the day and extensively discussed that she cannot stop eating on the Mounjaro or it will need discontinued. Sondra is agreeable to plan. She is due for a repeat microalbumin:Scr lab for the year. Will order this and instructed her to get this checked prior to next appointment. Instructed her to call with any issues andwill see her back in 3 months. Total time spent caring for the patient today was 34 minutes. This includes time spent before the visit reviewing the chart (lab results, past visit documentation, etc.), time spent during the visit,and time spend after the visit on documentation, sending in prescriptions, etc. Digitally Signed by Adry Prieto PharmD on 06/15/2024 04:36 PM [facility]10-04-2024 Hospital Discharge instructions Patient Education 03/31/2024 16:13:16 Hematuria: Possible Causes Hematuria: Possible Causes Many things can lead to blood in the urine (hematuria). The blood may be seen with the eye (macroscopic or gross hematuria). Or it may only be seen when the urine is looked at under a microscope (microscopic hematuria). Some of the most common causes of blood in the urine are listed below. Often, no cause for the blood can be found. This is called idiopathic hematuria. Kidney or bladder stones are collections of crystals. They form in the urine. Stones may be found anywhere in the urinary tract. But they form most often in the kidneys or bladder. In addition to blood in the urine, they can cause severe pain. BPH stands for benign prostatic hyperplasia. It is enlargement of the prostate gland. It happens asmen age. BPH often causes problems with urination. It sometimes causes blood in the urine. A urinary tract infection (UTI) is due to bacteria growing in the urinary tract. It can cause bloodin the urine. Other symptoms include burning or pain with urination. You may need to urinate often or urgently. You may also have a fever. Damage to the urinary tract may cause blood in the urine. This damage may be due to a blow or accident. It may also result from the use of a urinary catheter. Very hard exercise may sometimes irritate the urinary tract and cause bleeding. Cancer may occur anywhere in the urinary tract. A tumor may sometimes cause no symptoms other than bleeding. Other possible causes of bleeding include: Prostatitis (infection of the prostate gland) Taking anticoagulants Blockage in the urinary tract Disease or inflammation of the kidney Cystic diseases of the kidneys Sickle cell anemia Vigorous exercise Endometriosis 5032-0139 The [employer]. [address] [place] [address]. All rights reserved. This information is not intended as a substitute for professional medical care. Always follow yourhealthcare professional's instructions. 03/31/2024 16:13:12 Flank Pain, Uncertain Cause Flank Pain, Uncertain Cause The flank is the area between your upper abdomen and your back. Pain there is often caused by a problem with your kidneys. It might be a kidney infection or a kidney stone. Other causes of flank paininclude spinal arthritis, a pinched nerve from a back injury, or a back muscle strain or spasm. The cause of your flank pain is not certain. You may need other tests. Home care Follow these tips when caring for yourself at home: You may use acetaminophen or ibuprofen to control pain, unless your health care provider prescribedanother medicine. If you have chronic liver or kidney disease, talk with your provider before taking these medicines. Also talk with your provider first if you ve ever had a stomach ulcer or GI bleeding. If the pain is coming from your muscles, you may get relief with ice or heat. During the first 2 days after the injury, put an ice pack on the painful area for 20 minutes every 2 to 4 hours. This will reduce swelling and pain. A hot shower, hot bath, or heating pad works well for a muscle spasm. You can start with ice, then switch to heat after 2 days. You might find that alternating ice and heatworks well. Use the method that feels the best to you. Follow-up care Follow up with your healthcare provider if your symptoms don t get better over the next few days. When to seek medical advice Call your healthcare provider right away if any of these happen: Repeated vomiting Fever of 100.4 F (38 C) or higher, or as directed by your health care provider Flank pain that gets worse Pain that spreads to the front of your belly (abdomen) Dizziness, weakness, or fainting Blood in your urine Burning feeling when you urinate or the need to urinate often Pain in one of your legs that gets worse Numbness or weakness in a leg [employer]. [address] [place] [address]. All rights reserved. This information is not intended as a substitute for professional medical care. Always follow yourhealthcare professional's instructions. Follow Up Care 03/31/2024 13:32:19 With:AIDAN NASH MD, [employer] Address: [address] [place] [id number] [phone] When:2-4 days With:ROSARIO WALTERS [employer]IENT TECHNICAL PROFESSIONAL Address: [address] [place] [id number] [phone] When:2-4 days [facility] 10-04-2024 Note Discharge Instructions Thank you for allowing [facility] to assist you with your healthcare needs. The following is importantdischarge information regarding your hospital visit. Diagnosis from Today's Visit Flank pain Hematuria What to Do Next Instructions from Your Care Team You have blood in your urine as well as some crystals. This is usually associated with a kidney stone but this was not visualized on your radiology study today. Other causes of blood in urine includeinfection. You were presumptively treated today with antibiotics to treat a possible infection. You need to see your family doctor or urologist to follow-up on the blood in your urine and crystals inyour urine to assure that they have resolved. You also were noted to have cirrhosis of the liver onyour CT scan. Please keep your appointment with the specialist as previously planned. No qualifying data available. Post Acute Orders No qualifying data available. You Need to Schedule the Following Appointments Follow Up with AIDAN NASH MD, [employer] When:Within 2-4 days Where:[address] [place] [phone] Follow Up with ROSARIO WALTERS [employer]CLIENT TECHNICAL PROFESSIONAL When:Within 2-4 days Where:[address] [place] [id number] [phone] Allergies Statins (Moderate) penicillin Medications Please ask your primary doctor or pharmacist before taking any other medication not listed, including over the counter drugs, herbal medications, vitamins and or supplements as they may interact withyour home medications. What How Much When Why Instructions Last Dose New acetaminophen-hydrocodone ([place] 325- 5 mg oral tablet) 1 tab(s) by mouth Every 6 hours as needed for for pain Flank pain Duration: 5 Days May take 1-2 tablets / dose Printed Prescription New nitrofurantoin (Macrobid 100 mg oral capsule) 1 cap by mouth Two (2) times a day Duration: 7 Days Take with food Printed Prescription New ondansetron (Zofran 4 mg oral tablet) 1 tab(s) by mouth Every 6 hours as needed for Nausea/Vomiting Duration: 5 Days Printed Prescription Unchanged aspirin 81 Milligram by mouth Every day Unchanged cholecalciferol (cholecalciferol 625 mcg (25,000 intl units) oral capsule) 1 cap by mouth Every week Duration: 4 week(s) Unchanged DME (Blood Glucose Test Machine) See instructions Diabetes testing once daily Unchanged DME (Blood Glucose Test Strips) See instructions Diabetes testing once daily Unchanged DME (Lancets) See instructions Diabetes testing once daily Unchanged evolocumab (Repatha SureClick 140 mg/ mL subcutaneous solution) 140 Milligram Subcutaneous Every other week rotate injection sites Unchanged ferrous sulfate (ferrous sulfate 325 mg (65 mg elemental iron) oral delayed release tablet) 1 tab(s) by mouth Once a day Unchanged furosemide (furosemide 20 mg oral tablet) 1 tab(s) by mouth Once a day as needed for Swelling Unchanged metFORMIN (metFORMIN 500 mg oral tablet EXTENDED RELEASE) 4 tab(s) by mouth Once a day Duration: 30 Days Unchanged potassium chloride (potassium chloride 10 mEq oral capsule, extended release) 1 cap by mouth Two (2) times a day Unchanged tirzepatide (Mounjaro 7.5 mg/ 0.5 mL subcutaneous solution) 7.5 Milligram Subcutaneous Every week rotate injection sites Please take this list to your next doctor s visit. Bring all medications you take, including over the counter medications, herbals and other supplements with you to your doctor s visit. Patients and families are reminded to discard old lists and to update any records with all medication providers or retail pharmacies. Medication Leaflets ondansetron (oral) (on LUIS corcoran) What is the most important information I should know about ondansetron? Tell your doctor about all your other medicines. Some drugs should not be used with ondansetron. What is ondansetron? Ondansetron is used to prevent nausea and vomiting that may happen with certain cancer medicines (chemotherapy), or after surgery, or radiation treatment . Ondansetron may be used for purposes not listed in this medication guide. What should I discuss with my health care provider before taking ondansetron? You should not use ondansetron if you are allergic to it or similar medicines (dolasetron, granisetron, palonosetron). Some drugs should not be used with ondansetron. Your treatment plan may change if you also use apomorphine. Tell your doctor if you have or have ever had: an electrolyte imbalance (such as low blood levels of potassium or magnesium); congestive heart failure, slow heartbeats; heart rhythm disorder such as long QT syndrome (in you or a family member); an obstruction in the stomach or intestines, a change in bowel habits; a surgery on your stomach or intestines; or severe liver disease. The orally disintegrating tablet may contain phenylalanine and could be harmful if you have phenylketonuria (PKU). Tell your doctor if you also use stimulant medicine, opioid medicine, herbal products, or medicine for depression, mental illness, Parkinson's disease, migraine headaches, serious infections, or prevention of nausea and vomiting. An interaction with ondansetron could cause a serious condition called serotonin syndrome. Tell your doctor if you are or . Ondansetron is not approved for use by anyone younger than 4 years old. How should I take ondansetron? Follow all directions on your prescription label and read all medication guides or instruction sheets. Use the medicine exactly as directed. Ondansetron is usually taken just before surgery, chemotherapy, or radiation treatment. Follow yourdoctor's dosing instructions very carefully. Measure liquid medicine with the supplied measuring device (not a kitchen spoon). To take the orally disintegrating tablet: Keep the tablet in its blister pack until you are ready to take it. Open the package and peel back the foil. Use dry hands to remove the orally disintegrating tablet and place it in your mouth. Do not push a tablet through the foil or you may damage the tablet. Allow the orally disintegrating tablet to dissolve in your mouth without chewing. Do not swallow whole. Store in the original container at room temperature away from moisture, heat, and light. Store liquid medicine in an upright position. What happens if I miss a dose? Ondansetron is used when needed. If you are on a dosing schedule, skip any missed dose. Do not use two doses at one time. What happens if I overdose? Seek emergency medical attention or call the Poison Help line at . What should I avoid while taking ondansetron? Follow your doctor's instructions about any restrictions on food, beverages, or activity. What are the possible side effects of ondansetron? Get emergency medical help if you have signs of an allergic reaction: hives, difficult breathing, swelling of your face, lips, tongue, or throat. Seek medical attention right away if you have symptoms of serotonin syndrome such as: agitation, hallucinations, fever, sweating, shivering, fast heart rate, muscle stiffness, twitching, loss of coordination, nausea, vomiting, or diarrhea. Seek emergency medical help if you have signs of a heart attack: chest pain that spreads to your jaw or shoulder, nausea, and sweating. Call your doctor at once if you have: severe stomach pain, bloating, constipation, or any change in bowel habits; or dizziness, feeling lightheaded, fainting, slow, fast, or uneven heartbeats. Common side effects may include: diarrhea or constipation; headache; shortness of breath, rapid breathing, fast heartbeats; or feeling unwell, tiredness. This is not a complete list of side effects and others may occur. Call your doctor for medical advice about side effects. You may report side effects to FDA at 3-676-KZG-4487. What other drugs will affect ondansetron? Ondansetron can cause a serious heart problem. Your risk may be higher if you also use certain other medicines for infections, asthma, heart problems, high blood pressure, depression, mental illness,cancer, malaria, or HIV. Many drugs can affect ondansetron. This includes prescription and dslm-nze-xywtsms medicines, vitamins, and herbal products. Not all possible interactions are listed here. Tell your doctor about all other medicines you use. Where can I get more information? Your doctor or pharmacist can provide more information about ondansetron. Remember, keep this and all other medicines out of the reach of children, never share your medicines with others, and use this medication only for the indication prescribed. Every effort has been made to ensure that the information provided by [employer]. ('[employer]') is accurate, up-to-date, and complete, but no guarantee is made to that effect. Drug information contained herein may be time sensitive. [employer] information has been compiled for use by healthcare practitioners and consumers in the [place] and therefore [employer] does not warrant that uses outside of the [place] are appropriate, unless specifically indicated otherwise. [employer] drug information does not endorse drugs, diagnose patients or recommend therapy. [employer] drug information isan informational resource designed to assist licensed healthcare practitioners in caring for their p atients and/or to serve consumers viewing this service as a supplement to, and not a substitute for, the expertise, skill, knowledge and judgment of healthcare practitioners. The absence of a warningfor a given drug or drug combination in no way should be construed to indicate that the drug or drug combination is safe, effective or appropriate for any given patient. [employer] does not assume any responsibility for any aspect of healthcare administered with the aid of information [employer] provides. The information contained herein is not intended to cover all possible uses, directions, precautions, warnings, drug interactions, allergic reactions, or adverse effects. If you have questions about the drugs you are taking, check with your doctor, nurse or pharmacist. Copyright 6980-8197 [employer]. Version: 17.01. Revision Date: 03/21/2024. acetaminophen and hydrocodone (a SEET a MIN oh fen and obey JACKSON done) Verdrocet What is the most important information I should know about acetaminophen and hydrocodone? MISUSE OF OPIOID MEDICINE CAN CAUSE ADDICTION, OVERDOSE, OR . Keep the medication in a place where others cannot get to it. Taking opioid medicine during may cause life-threatening withdrawal symptoms in the . Fatal side effects can occur if you use opioid medicine with alcohol, or with other drugs that cause drowsiness or slow your breathing. Stop taking this medicine and call your doctor right away if you have skin redness or a rash that spreads and causes blistering and peeling. What is acetaminophen and hydrocodone? Acetaminophen and hydrocodone is a combination medicine used to relieve moderate to severe pain. Acetaminophen and hydrocodone contains an opioid medicine, and may be habit-forming. Acetaminophen and hydrocodone may also be used for purposes not listed in this medication guide. What should I discuss with my healthcare provider before taking acetaminophen and hydrocodone? You should not use this medicine if you are allergic to acetaminophen or hydrocodone, or if you have: severe asthma or breathing problems; or a blockage in your stomach or intestines. Tell your doctor if you have ever had: breathing problems, sleep apnea (breathing stops during sleep); liver disease; a drug or alcohol addiction; kidney disease; a head injury or seizures; urination problems; or problems with your thyroid, pancreas, or gallbladder. If you use opioid medicine while you are , your baby could become dependent on the drug. This can cause life-threatening withdrawal symptoms in the baby after it is born. Babies born dependent on opioids may need medical treatment for several weeks. Ask a doctor before using opioid medicine if you are . Tell your doctor if you notice severe drowsiness or slow breathing in the nursing baby. How should I take acetaminophen and hydrocodone? Follow all directions on your prescription label. Never take this medicine in larger amounts, or for longer than prescribed. An overdose can damage your liver or cause . Tell your doctor if you feel an increased urge to use more of this medicine. Never share this medicine with another person, especially someone with a history of drug abuse or addiction. MISUSE CAN CAUSE ADDICTION, OVERDOSE, OR . Keep the medicine in a place where others cannot get to it. Selling or giving away this medicine is against the law. Measure liquid medicine carefully. Use the dosing syringe provided, or use a medicine dose-measuring device (not a kitchen spoon). If you need surgery or medical tests, tell the doctor ahead of time that you are using this medicine. You should not stop using this medicine suddenly. Follow your doctor's instructions about tapering your dose. Store at room temperature away from moisture and heat. Keep track of your medicine. You should be aware if anyone is using it improperly or without a prescription. Do not keep leftover opioid medication. Just one dose can cause in someone using this medicine accidentally or improperly. Ask your pharmacist where to locate a drug take-back disposal program.If there is no take-back program, flush the unused medicine down the toilet. What happens if I miss a dose? Since this medicine is used for pain, you are not likely to miss a dose. Skip any missed dose if itis almost time for your next dose. Do not use two doses at one time. What happens if I overdose? Seek emergency medical attention or call the Poison Help line at . An overdose of this medicine can be fatal, especially in a child or other person using the medicine without a prescription. Overdose symptoms may include nausea, vomiting, sweating, severe drowsiness, pinpoint pupils, slow breathing, or no breathing. Your doctor may recommend you get naloxone (a medicine to reverse an opioid overdose) and keep it with you at all times. A person caring for you can give the naloxone if you stop breathing or don't wake up. Your caregiver must still get emergency medical help and may need to perform CPR (cardiopulmonary resuscitation) on you while waiting for help to arrive. Anyone can buy naloxone from a pharmacy or local health department. Make sure any person caring foryou knows where you keep naloxone and how to use it. What should I avoid while taking acetaminophen and hydrocodone? Avoid driving or operating machinery until you know how this medicine will affect you. Dizziness ordrowsiness can cause falls, accidents, or severe injuries. Do not drink alcohol. Dangerous side effects or could occur. Ask a doctor or pharmacist before using any other medicine that may contain acetaminophen (sometimes abbreviated as APAP). Taking certain medications together can lead to a fatal overdose. What are the possible side effects of acetaminophen and hydrocodone? Get emergency medical help if you have signs of an allergic reaction: hives; difficulty breathing; swelling of your face, lips, tongue, or throat. Opioid medicine can slow or stop your breathing, and may occur. A person caring for you should give naloxone and/or seek emergency medical attention if you have slow breathing with long pauses,blue colored lips, or if you are hard to wake up. In rare cases, acetaminophen may cause a severe skin reaction that can be fatal. This could occur even if you have taken acetaminophen in the past and had no reaction. Stop taking this medicine and call your doctor right away if you have skin redness or a rash that spreads and causes blistering andpeeling. Call your doctor at once if you have: noisy breathing, sighing, shallow breathing, breathing that stops; a light-headed feeling, like you might pass out; liver problems--nausea, upper stomach pain, tiredness, loss of appetite, dark urine, mera-colored stools, jaundice (yellowing of the skin or eyes); low cortisol levels-- nausea, vomiting, loss of appetite, dizziness, worsening tiredness or weakness; o high levels of serotonin in the body--agitation, hallucinations, fever, sweating, shivering, fast heart rate, muscle stiffness, twitching, loss of coordination, nausea, vomiting, diarrhea. Serious breathing problems may be more likely in older adults and in those who are debilitated or have wasting syndrome or chronic breathing disorders. Common side effects include: dizziness, drowsiness, feeling tired; nausea, vomiting, stomach pain; constipation; or headache. This is not a complete list of side effects and others may occur. Call your doctor for medical advice about side effects. You may report side effects to FDA at 5-478-LQE-3800. What other drugs will affect acetaminophen and hydrocodone? You may have breathing problems or withdrawal symptoms if you start or stop taking certain other medicines. Tell your doctor if you also use an antibiotic, antifungal medication, heart or blood pressure medication, seizure medication, or medicine to treat HIV or hepatitis C. Opioid medication can interact with many other drugs and cause dangerous side effects or . Be sure your doctor knows if you also use: cold or allergy medicines, bronchodilator asthma/COPD medication, or a diuretic ('water pill'); medicines for motion sickness, irritable bowel syndrome, or overactive bladder; other opioids--opioid pain medicine or prescription cough medicine; a sedative like Valium--diazepam, alprazolam, lorazepam, Xanax, Klonopin, Versed, and others; drugs that make you sleepy or slow your breathing--a sleeping pill, muscle relaxer, medicine to treat mood disorders or mental illness; drugs that affect serotonin levels in your body--a stimulant, or medicine for depression, Parkinson's disease, migraine headaches, serious infections, or nausea and vomiting. This list is not complete. Other drugs may affect acetaminophen and hydrocodone, including prescription and nnex-orl-zroxnbn medicines, vitamins, and herbal products. Not all possible interactions are listed here. Where can I get more information? Your doctor or pharmacist can provide more information about acetaminophen and hydrocodone. Remember, keep this and all other medicines out of the reach of children, never share your medicines with others, and use this medication only for the indication prescribed. Every effort has been made to ensure that the information provided by [employer]. ('[employer]') is accurate, up-to-date, and complete, but no guarantee is made to that effect. Drug information contained herein may be time sensitive. [employer] information has been compiled for use by healthcare practitioners and consumers in the [place] and therefore [employer] does not warrant that uses outside of the [place] are appropriate, unless specifically indicated otherwise. [employer] drug information does not endorse drugs, diagnose patients or recommend therapy. [employer] drug information isan informational resource designed to assist licensed healthcare practitioners in caring for their p atients and/or to serve consumers viewing this service as a supplement to, and not a substitute for, the expertise, skill, knowledge and judgment of healthcare practitioners. The absence of a warningfor a given drug or drug combination in no way should be construed to indicate that the drug or drug combination is safe, effective or appropriate for any given patient. [facility] does not assume any responsibility for any aspect of healthcare administered with the aid of information [employer] provides. The information contained herein is not intended to cover all possible uses, directions, precautions, warnings, drug interactions, allergic reactions, or adverse effects. If you have questions about the drugs you are taking, check with your doctor, nurse or pharmacist. Copyright 4109-9381 [employer]. Version: 19.. Revision Date: 10/05/2023. Education Materials Hematuria: Possible Causes Many things can lead to blood in the urine (hematuria). The blood may be seen with the eye (macroscopic or gross hematuria). Or it may only be seen when the urine is looked at under a microscope (microscopic hematuria). Some of the most common causes of blood in the urine are listed below. Often, no cause for the blood can be found. This is called idiopathic hematuria. Kidney or bladder stones are collections of crystals. They form in the urine. Stones may be found anywhere in the urinary tract. But they form most often in the kidneys or bladder. In addition to blood in the urine, they can cause severe pain. BPH stands for benign prostatic hyperplasia. It is enlargement of the prostate gland. It happens asmen age. BPH often causes problems with urination. It sometimes causes blood in the urine. A urinary tract infection (UTI) is due to bacteria growing in the urinary tract. It can cause bloodin the urine. Other symptoms include burning or pain with urination. You may need to urinate often or urgently. You may also have a fever. Damage to the urinary tract may cause blood in the urine. This damage may be due to a blow or accident. It may also result from the use of a urinary catheter. Very hard exercise may sometimes irritate the urinary tract and cause bleeding. Cancer may occur anywhere in the urinary tract. A tumor may sometimes cause no symptoms other than bleeding. Other possible causes of bleeding include: Prostatitis (infection of the prostate gland) Taking anticoagulants Blockage in the urinary tract Disease or inflammation of the kidney Cystic diseases of the kidneys Sickle cell anemia Vigorous exercise Endometriosis 3455-2262 The [employer]. [address] [place] [address]. All rights reserved. This information is not intended as a substitute for professional medical care. Always follow yourhealthcare professional's instructions. Flank Pain, Uncertain Cause The flank is the area between your upper abdomen and your back. Pain there is often caused by a problem with your kidneys. It might be a kidney infection or a kidney stone. Other causes of flank paininclude spinal arthritis, a pinched nerve from a back injury, or a back muscle strain or spasm. The cause of your flank pain is not certain. You may need other tests. Home care Follow these tips when caring for yourself at home: You may use acetaminophen or ibuprofen to control pain, unless your health care provider prescribedanother medicine. If you have chronic liver or kidney disease, talk with your provider before taking these medicines. Also talk with your provider first if you ve ever had a stomach ulcer or GI bleeding. If the pain is coming from your muscles, you may get relief with ice or heat. During the first 2 days after the injury, put an ice pack on the painful area for 20 minutes every 2 to 4 hours. This will reduce swelling and pain. A hot shower, hot bath, or heating pad works well for a muscle spasm. You can start with ice, then switch to heat after 2 days. You might find that alternating ice and heatworks well. Use the method that feels the best to you. Follow-up care Follow up with your healthcare provider if your symptoms don t get better over the next few days. When to seek medical advice Call your healthcare provider right away if any of these happen: Repeated vomiting Fever of 100.4 F (38 C) or higher, or as directed by your health care provider Flank pain that gets worse Pain that spreads to the front of your belly (abdomen) Dizziness, weakness, or fainting Blood in your urine Burning feeling when you urinate or the need to urinate often Pain in one of your legs that gets worse Numbness or weakness in a leg [id number] [employer]. [address] [place] [address], [place] [address]. All rights reserved. This information is not intended as a substitute for professional medical care. Always follow yourhealthcare professional's instructions. Additional Information VACCINATE! IT SAVES LIVES! Members of the community who have not yet received the COVID-19 vaccine and would like to receive it can visit one of [facility] vaccine clinics. There are many vaccine clinic locations within the [facility]. For locations and available times, please visit www.gettheshot.coronavirus.[place].gov/. It is important to note that some COVID mobile vaccine clinics are held outdoors and may be canceled in rainy or stormy conditions. To learn more about pediatric vaccinations (ages 5-11), we invite you to visit the [facility] webpage. https://www.akRetidocs.org/pages/5271-Tpgac-Kxbrkoqcigy-Oshupngrlo-Ngpgi-Ruf stions.htmlTo learn more about the COVID-19 vaccine, we invite you to visit the CDC website for a list of frequently asked questions. https://www.cdc.gov/coronavirus/2019-ncov/vaccines/faq.html [facility] Patient Portal Access Instructions: Stay connected with your healthcare team and access your personal medical information anytime with the [facility] Patient Portal. If you would like a full copy of your medical records please contact the [facility] Medical Records Department Wednesday through Wednesday between 8a.m. and 4:30p.m. Please follow the directions below to access the portal: 1.Access the email account you provided upon registration to the hospital.2.Look for an invitation email from [facility].3.Open the email and access the invitation link: Accept Invitation to [facility]4.Fill in the required morgan to create your account. Sign into [email or web address] with your username and password that you created in the above steps to stay up to date. You can then view a summary of results, a summary of your visits, and the ability to download your summaries to your computer or send the information securely to a physician. Remember that your healthcare information is confidential, so carefully consider who you will allow to register on the [facility] Patient Portal for access to your information. You can also access the [facility] Patient Portal on the [employer]. Simply click on Health Records under [employer] and then click on the [employer] logo. HOW TO SAFELY DISPOSE OF PRESCRIPTION MEDICATIONS Please use one of the following methods to safely dispose of your unused medications. 1.Use a drug disposal kit: the drug disposal pouch allows you to safely discard your old and unuseddrugs. Ask your nurse to give you one when you are discharged.2.Visit a local take-back location: Many local pharmacies and police departments have programs that collect old and unwanted prescriptiondrugs. Call your local pharmacy or go to http://[employer].Ocutec/4J3Yg9b to find one close to you.3.Make use of household items: Use cat litter or old coffee grounds to dispose medications if other options arenot available. Mix your drugs with these household products, seal them in an airtight container andthrow it into the garbage. Call [facility]: [phone] to be sure your drugs can be disposed of in this way. Some medicines may require a different approach.4.Never flush your medications down the toilet. IF YOU HAVE BEEN PRESCRIBED AN OPIOIDS FOR PAIN If you have been prescribed an opioid (such as hydrocodone, oxycodone or morphine), it is critical to understand the possible side effects and risks of opioid pain medications. Even when taken as directed, opioids can have several side effects including: Tolerance, meaning you might need to take more of a medication for the same pain relief. Nausea, vomiting and/or constipation. Sleepiness, dizziness, dry mouth, confusion, depression or itching. Physical dependence, meaning you have withdrawal symptoms when a medication is stopped ? this can develop within a few days. KNOW YOUR RESPONSIBILITIES It is important to know exactly how much and how often to take the opioid pain medications you are prescribed. Never take opioids in higher amounts or more often than prescribed. Do not combine opioids with alcohol or other drugs that cause drowsiness, such as benzodiazepines, also known as benzos,including diazepam and alprazolam, muscle relaxants or sleep aids. Never sell or share prescriptionopioids. This is illegal. Store opioids in a secure place and out of reach of others (including children, family, friends and visitors). The last page(s) of this document has been signed and retained as a CHART COPY Signatures Patient Education Materials Hematuria: Possible Causes Flank Pain, Uncertain Cause Medication Leaflets ondansetron (oral), acetaminophen and hydrocodone My discharge plan and instructions have been reviewed and explained to me and I,SONDRA DUVAL understand my current condition and have read and understand these discharge instructions. I have received a written copy of the plan/instructions. If I have questions, I am aware that I should contact my doctor. 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 Multiplanar reformatted images are provided for review. Automated exposure control, iterative reconstruction, and/or weight based adjustment of the mA/kV was utilized to reduce the radiation dose to as low as reasonably achievable. COMPARISON: None HISTORY: ORDERING SYSTEM PROVIDED HISTORY: Reason for Exam: abdominal pain FINDINGS: The lung bases demonstrate no acute abnormality. The liver demonstrates a nodular contour compatible with cirrhosis. No discrete focal hepatic lesion is identified although evaluation is limited secondary to lack of IV contrast. The spleen is enlarged measuring 19.3 cm in craniocaudal dimension. There is evidence of portosystemic shunting with splenorenal and gastroesophageal varices. The adrenal glands and pancreas are unremarkable. Cholelithiasis without biliary dilatation. No hydronephrosis or nephrolithiasis. Bladder is nondistended limiting evaluation. The distal esophagus and stomach are unremarkable given under distended state. No dilated loops of small bowel. Normal appendix. Colon demonstrates no significant wall thickening. Mild diverticulosis without adjacent inflammation to suggest diverticulitis. Atherosclerotic nonaneurysmal abdominal aorta. No significant free intraperitoneal fluid with a possible trace perihepatic ascites. No free intraperitoneal air. Mildly enlarged periportal and jackeline hepatis lymph nodes measuring up to 1.4 cm (2, 33). Soft tissue nodularity within the right anterior abdominal wall subcutaneous tissue likely representing injection granuloma. Multilevel degenerative changes of the spine. No acute osseous abnormality. IMPRESSION: Cirrhosis with indicators of portal hypertension including splenomegaly and left upper quadrant/gastroesophageal varices. Prominent jackeline hepatis and periportal lymph nodes presumably hyperplastic/reactive to underlying hepatic pathology. Attention on follow-up recommended. Cholelithiasis without biliary dilatation. I have personally reviewed the images of this examination and agree with the resident's findings and interpretations. Interpreted by: Gabriele Rios Preliminary Report By: Jesus Huerta Electronically signed By Gabriele Rios Dictated Date: 03/31/2024 2:51:51 PM Prelim Date: 03/31/2024 3:07:41 PM Sign Date: 03/31/2024 3:07:41 PM Ordering Provider: [facility]09-11-2024 History of Present illness Narrative* Teresa Randall RT(R) - 03/08/2024 8:40 AM EDT Radiology Service Progress Note PATIENT NAME: Sondra Duval DATE OF SERVICE: March 08, 2024 TIME: 8:53 AM PATIENT IDENTITY VERIFICATION COMPLETED USING TWO (2) IDENTIFIERS: Name and Date of confirmedby patient verbally. FALL SCREENING: Has the patient had 2 falls in the last year or 1 fall with injury or currently using an Ambulatory Assistive Device (Walker, Cane, Wheelchair, Crutches, etc.)? No PATIENT GENDER DATA: Female. status: : No status: NO. PATIENT RELEVANT IMPLANT DATA REVIEWED: Yes PATIENT PRESENTS WITH AN IMPLANTABLE OR ATTACHED DISEASE CONTROL INSPECTOR: No RADIOLOGY DEPARTMENT: MR; Exam(s) Completed: Body: Liver (routine) PERIPHERAL IV DATA: Not applicable SIGNED BY: RT Karmen(R) March 08, 2024 8:53 AM [facility] NoteHNO ID: [id number] Author: TERESA RANDALL RT(R) Service: ? Author Type: Technologist Type: Progress Notes Filed: 03/08/2024 08:53 Note Text: Radiology Service Progress Note PATIENT NAME: Sondra Duval DATE OF SERVICE: March 08, 2024 TIME: 8:53 AM PATIENT IDENTITY VERIFICATION COMPLETED USING TWO (2) IDENTIFIERS: Name and Date of confirmed by patient verbally. FALL SCREENING: Has the patient had 2 falls in the last year or 1 fall with injury or currently using an Ambulatory Assistive Device (Walker, Cane, Wheelchair, Crutches, etc.)? No PATIENT GENDER DATA: Female. status: : No status: NO. PATIENT RELEVANT IMPLANT DATA REVIEWED: Yes PATIENT PRESENTS WITH AN IMPLANTABLE OR ATTACHED DISEASE CONTROL INSPECTOR: No RADIOLOGY DEPARTMENT: MR; Exam(s) Completed: Body: Liver (routine) PERIPHERAL IV DATA: Not applicable SIGNED BY: RT Karmen(R) March 08, 2024 8:53 [facility]05-14-2024 Note* Exam Date Time Procedure Performing Provider Status 11/09/23 8:15 AM Echocardiogram, Adult - CV Auth (Verified) [facility] 05-14-2024 Note ORIGINAL FROM: [address] [address] PROCEDURE FOR: SONDRA DUVAL [address] [place] [address] Home: PID#: [id number] Exam#: [id number] : 1965 Age: 58 TO: ROSARIO WALTERS APRN [address] [address] Fax: NO FAX EXAMINATION: SCREENING DIGITAL BILATERAL MAMMOGRAM WITH TOMOSYNTHESIS, 11/09/2023 7:09 am TECHNIQUE: Screening mammography of the bilateral breasts was performed with tomosynthesis. 2D standard and 3D tomosynthesis combination imaging performed through both breasts in the MLO and CC projection. Computer aided detection was utilized in the interpretation of this exam. COMPARISON: Screening mammogram 05/24/2019 HISTORY: Breast cancer screening FINDINGS: BREAST DENSITY: Scattered fibroglandular tissue There are no significant masses or calcifications. IMPRESSION: No mammographic evidence of malignancy. Continued screening with annual mammograms is recommended. Flower zi risk calculations, generated with the history provided, report this patient's 10 year risk and lifetime risk for developing breast cancer at 4.5% and 12.2%, respectively. Based on this assessment tool, if the patient's calculated lifetime risk is below 20%, then the patient is considered at average risk for developing breast cancer. If the patient's calculated lifetime risk is at or above 20%, then the patient is considered high risk for developing breast cancer and may be a candidate for supplemental breast MRI screening in addition to annual mammographic screening per the [place] [employer]. I have personally reviewed the images of this examination and agree with the resident's findings and interpretation. BIRADS: MAMMOGRAM BI-RADS: 1: Negative RECALL: 1 year screening RECALL TYPE: mammo LETTER SENT: Normal BI-RADS 1 and 2 Interpreted by: Harvinder Ruiz MD Preliminary Report By: Debra Hall Electronically signed By Harvinder Ruiz MD Dictated Date: 11/09/2023 8:15:35 AM Prelim Date: 11/09/2023 11:42:22 AM Sign Date: 11/09/2023 11:42:22 AM Ordering Provider: ROSARIO WALTERS Analysis Director: EZEKIEL KARIMI RT(R)(M)(CT) STYLIST APPRENTICE letter sent: Normal BI-RADS 1 and 2 Mammogram BI-RADS: 1 [facility]07-01-2023 Hospital Discharge instructions Patient Education 12/26/2022 18:19:04 CONTUSION, Upper Extremity Contusion:Upper Extremity You have a contusion of your upper extremity (arm, wrist, hand or fingers). This causes local pain,swelling and sometimes bruising. There are no broken bones. This injury takes a few days to a few weeks to heal. A sling may be provided for comfort and arm support. Home Care: 1) Keep your arm elevated to reduce pain and swelling. This is very important during the first 48 hours. 2) Apply an ice pack (ice cubes in a plastic bag, wrapped in a towel) over the injured area for 20 minutes every 1-2 hours the first day for pain relief. Continue this 3-4 times a day until the pain and swelling goes away. 3) You may use acetaminophen (Tylenol) or ibuprofen (Motrin, Advil) to control pain, unless anotherpain medicine was prescribed. [ NOTE : If you have chronic liver or kidney disease or ever had a stomach ulcer or GI bleeding, talk with your doctor before using these medicines.] 4) If a sling was provided,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
[2025-05-27 06:38] LABS: Copper, 24Ur 32 ug/24 hr (3-35); Copper, Ur 32 ug/L (Not Estab.); Copper/Creat Ratio 22 ug/g creat (0-49)
== END | disposition home or self-care (01) ==
LOC: LAB 10:51
PROVIDERS: PCP Nurse Practitioner Primary Care; Referring Provider Internal Medicine Gastroenterology; Visit Provider Internal Medicine Gastroenterology
DX: K75.81 Nonalcoholic steatohepatitis (NASH) (principal)
CPT/HCPCS: 81050; 82525; 82570

== ENCOUNTER → 2025-06-06 | Outpatient (CLI) | payer BC, SELFPAY ==
--- OUTSIDE RECORDS SUMMARY | 2025-06-06 07:20 | XMS RPT_ITS | CCD ---
Author Organization [facility] Care Team Providers Care Maritime Guard Name Role Phone SATKEI LOGANISHNA B Unavailable Unavailable SATDESMOND, ROMULO B Unavailable Unavailable SATYAN, ROMULO B Unavailable Unavailable NO REFERRING Unavailable Unavailable SATDESMOND, ROMULO B Unavailable Unavailable Jacoby Mcrae Unavailable Unavailable Jael Dietz Unavailable Roger Sanchez Unavailable Unavailable Unavailable Unavailable SELENA PENOLOGY TEACHER-MD ALLERGY IMMUNOLOGY, ROSARIO S Primary Care Physicia n Madan PT, Teresa Unavailable Unavailable Selena ELEMENTARY TUTOR, ELEMENTARY TUTOR-C Rosario Primary Care Provider Farzana Wray Attending Provider Unavailable Selena ELEMENTARY TUTOR, ELEMENTARY TUTOR-C Rosario Referring Provider Dr. Jeff Kyle Attending Provider Dr. Wali Portillo Attending Provider [phone] Dr. Jeff Kyle Referring Provider [phone] Dr. Jeff Kyle Other Provider [phone] SELENA PENOLOGY TEACHER-MD ALLERGY IMMUNOLOGY, ROSARIO S Attending Unava ilable SELENA PENOLOGY TEACHER-MD ALLERGY IMMUNOLOGY, ROSARIO S Primary Care Unava ilable SELENA PENOLOGY TEACHER-MD ALLERGY IMMUNOLOGY, ROSARIO S Attending Unava ilable SELENA PENOLOGY TEACHER-MD ALLERGY IMMUNOLOGY, ROSARIO S Primary Care Unava ilable SHANTEL POTTER, SYLVIE Willoughby Attending Unavailable SELENA PENOLOGY TEACHER-MD ALLERGY IMMUNOLOGY, ROSARIO S Primary Care Unava ilable SHANTEL POTTER, SYLVIE Willoughby Attending Unavailable SELENA PENOLOGY TEACHER-MD ALLERGY IMMUNOLOGY, ROSARIO S Primary Care Unava ilable SELENA PENOLOGY TEACHER-MD ALLERGY IMMUNOLOGY, ROSARIO S Attending Unava ilable SELENA PENOLOGY TEACHER-MD ALLERGY IMMUNOLOGY, ROSARIO S Primary Care Unava ilable MAURA POTTER, LIANE Lira Attending Unavailable SELENA PENOLOGY TEACHER-MD ALLERGY IMMUNOLOGY, ROSARIO S Primary Care Unava ilable SELENA PENOLOGY TEACHER-MD ALLERGY IMMUNOLOGY, ROSARIO S Attending Unava ilable SELENA PENOLOGY TEACHER-MD ALLERGY IMMUNOLOGY, ROSARIO S Primary Care Unava ilable KISHORE POTTER, DR CARL Attending Unavailabl e SELENA PENOLOGY TEACHER-MD ALLERGY IMMUNOLOGY, ROSARIO S Primary Care Unava ilable SHANTEL POTTER, SYLVIE Willoughby Attending Unavailable SELENA PENOLOGY TEACHER-MD ALLERGY IMMUNOLOGY, ROSARIO S Primary Care Unava ilable SELENA PENOLOGY TEACHER-MD ALLERGY IMMUNOLOGY, ROSARIO S Attending Unava ilable SELENA PENOLOGY TEACHER-MD ALLERGY IMMUNOLOGY, ROSARIO S Primary Care Unava ilable SELENA PENOLOGY TEACHER-MD ALLERGY IMMUNOLOGY, ROSARIO S Attending Unava ilable SELENA PENOLOGY TEACHER-MD ALLERGY IMMUNOLOGY, ROSARIO S Primary Care Unava ilable SHANTEL POTTER, SYLVIE Willoughby Attending Unavailable SELENA PENOLOGY TEACHER-MD ALLERGY IMMUNOLOGY, ROSARIO S Primary Care Unava ilable SELENA PENOLOGY TEACHER-MD ALLERGY IMMUNOLOGY, ROSARIO S Attending Unava ilable SLEENA PENOLOGY TEACHER-MD ALLERGY IMMUNOLOGY, ROSARIO S Primary Care Unava ilable SELENA PENOLOGY TEACHER-MD ALLERGY IMMUNOLOGY, ROSARIO S Attending Unava ilable SELENA PENOLOGY TEACHER-MD ALLERGY IMMUNOLOGY, ROSARIO S Primary Care Unava ilable Gurdeep MALONE DO, George Quimby Unavailable Viri Rowland Primary Care Provider [phone] Selena MD ALLERGY IMMUNOLOGY, Rosario S Primary Care Provider [phone] AIDAN NASH Referring Unavailable SELENA, ROSARIO S Primary Care Unavailable SELENA, ROSARIO S Referring Unavailable ARTEMMJ MARTINEE PATRICA Primary Care Unavailable SAADAIDAN Referring Unavailable SELENA, ROSARIO S Primary Care Unavailable SAADAIDAN Referring Unavailable SELENA, ROSARIO S Primary Care Unavailable Gerald Bennett Nurse, Juma Unavailable Maritza GILBERT MD, ILEANA Attending Unavailable MARI POTTER, ILEANA Admitting Unavailable LUCERO BELCHER MD Consulting Unavailable SELENA PENOLOGY TEACHER-MD ALLERGY IMMUNOLOGY, ROSARIO S Primary Care Unava ilable EDIS PINEDA DO Consulting Unavailable SELENA PENOLOGY TEACHER-MD ALLERGY IMMUNOLOGY, ROSARIO S Primary Care Unava ilable ILEANA GILBERT MD Attending Unavailable Selena ELEMENTARY TUTOR, Rosario Referring Unavailable Rafa Givens Attending Unavailable Sugden ELEMENTARY TUTOR, Rosario Primary Care Unavailable Aidan Nash Referring Unavailable Sugden ELEMENTARY TUTOR, Rosario Primary Care Unavailable Aidan Nash Attending Unavailable Sugden ELEMENTARY TUTOR, Rosario Primary Care Unavailable Michelle Reece Attending Unavailable Zeinab Roman Attending Unavailable Abel, Zeinab Referring Unavailable Selena ELEMENTARY TUTOR, Rosario Primary Care Unavailable Selena ELEMENTARY TUTOR, Rosario Primary Care Unavailable Traci Mcgill Attending Unavailable Traci Mcgill Referring Unavailable Zeinab Roman Consulting Unavailable Zeinab Roman Referring Unavailable Porter Donovan Attending Unavailable Selena ELEMENTARY TUTOR, Rosario Primary Care Unavailable BATERS PENOLOGY TEACHER-MD ALLERGY IMMUNOLOGY, MARA Attending Unavailabl e SELENA, ROSARIO Primary Care Unavailable BATERS PENOLOGY TEACHER-MD ALLERGY IMMUNOLOGY, MARA Attending Unavailabl e SELENA, ROSARIO Primary Care Unavailable SELENA, ROSARIO Primary Care Unavailable SELENA, ROSARIO Attending Unavailable SELENA, ROSARIO Primary Care Unavailable PAMELA PENOLOGY TEACHER-MD ALLERGY IMMUNOLOGY, VIVIENNE JOHNSON Attending U navailable SELENA, ROSARIO Primary Care Unavailable ALISIA POTTER, DR SOY Willoughby Attending Unavailable SELENA, ROSARIO Primary Care Unavailable SELENA, ROSARIO Attending Unavailable SELENA, ROSARIO Primary Care Unavailable DR SOY CRUMP MD Attending Unavailable SELENA, ROSARIO Primary Care Unavailable SELENABENITOROSARIO Attending Unavailable SELENA, ROSARIO Primary Care Unavailable SELENA, ROSARIO Attending Unavailable WITTENSOLDNER PENOLOGY TEACHER-MD ALLERGY IMMUNOLOGY, CHUY Attending U navailable SELENA, ROSARIO Primary [...] (1 source) Penicillin; Translations: [penicillins] Drug Allergy [facility] (8 sources) Penicillins; Translations: [PENICILLINS] Propensity to adverse reactions (disorder) [facility] Repository Comment on above: Hives (20 sources) Hmg-Coa Reductase Inhibitors (Statins); Translations: [statins] Drug allergy Joint pain (finding) [facility] (20 sources) Penicillin; Translations: [penicillins] Drug Allergy Weal (disorder) [facility] Medications Current Medications Medication Drug Class(es) Dates Sig (Normalized) Sig (Original) 0.5 ML tirzepatide 15 MG/ML Auto-Injector [Mounjaro] (3 sources) Start: 03-09-2024 inject 1 dose by subcutaneous injection every week Mounjaro 7.5 mg/0.5 mL subcutaneous solution Dose : 7.5 mg =, Subcutaneous, qWeek, rotate injection sites, # 4 EA, 3 Refill(s), Pharmacy: [facility], 165, cm, 01/18/24 15:20:00 EDT, Height, kg, 01/18/24 15:20:00 EDT, Dosing Weight Start Date: 03/09/24 Status: Ordered 0.5 ML tirzepatide 20 MG/ML Auto-Injector [Mounjaro] (2 sources) Start: 06-15-2024 inject 1 dose by subcutaneous injection every week Mounjaro 10 mg/0.5 mL subcutaneous solution Dose : 10 mg =, Subcutaneous, qWeek, rotate injection sites, # 4 EA, 4 Refill(s), Pharmacy: [facility], 165, cm, 04/06/24 13:02:00 [...] sites, # 2 mL, 6 Refill(s), Pharmacy: [facility], 165, cm, 09/12/24 11:26:00 [...] sites, # 2 mL, 6 Refill(s), Pharmacy: [facility], 165, cm, 09/12/24 11:26:00 [...] sites, # 4 EA, 6 Refill(s), Pharmacy: [facility], 162.6, cm, 12/02/21 14:57:00 EDT, Height [...] 0 Refill(s), 06/25/21 7:04:00 EST, [facility], 162.56, cm, 06/10/21 13:32:00 EST, Height, [...] every four hours as needed for pain [place] 325- 5 mg oral tablet Dose = [...] daily, # 1 EA, 0 Refill(s), Pharmacy: [address], [facility] Start Date: 05/10/19 Status: Ordered Medication Dispense Status: Completed Quantity: 1.0 Unit: EA Total Allowed Fills: 1 Fills Dispensed: 0 Indications: Type 2 diabetes mellitus without complications; Start: 05-10-2019 Blood Glucose Test Machine See Instructions, testing once daily, # 1 EA, 0 Refill(s), Pharmacy: [address], [facility] Start Date: 05/10/19 Status: Ordered Quantity: 1.0 Unit: EA Repeat number: 1 Indications: Type 2 diabetes mellitus without complications; Start: 05-10-2019 Blood Glucose Test Machine See Instructions, testing once daily, # 1 EA, 0 Refill(s), Pharmacy: [address], [facility] Start Date: 05/10/19 Status: Ordered Quantity: 1.0 Unit: EA Repeat number: 1 Indication: Type 2 diabetes mellitus without complications Start: 05-10-2019 Blood Glucose Test Machine See Instructions, testing once daily, # 1 EA, 0 Refill(s), Pharmacy: [address], [facility] Start Date: 05/10/19 Status: Ordered cholecalciferol 0.625 mg oral capsule (11 sources) Vitamin D Start: 03-11-2023 End: 12-20-2024 cholecalciferol 625 mcg (25,000 intl units) oral capsule Dose : 625 mcg = 1 cap(s), Oral, qWeek, # 4 cap(s), 11 Refill(s), Pharmacy: [facility] #[id number], 165, cm, 01/18/24 15:20:00 EDT, Height, kg, 01/18/24 15:20:00 EDT, Dosing Weight Start Date: 01/19/24 Stop Date: 12/20/24 Status: Ordered Start: 03-11-2023 End: 02-10-2024 cholecalciferol 625 mcg (25, 000 intl units) oral capsule Dose : 625 mcg = 1 cap(s), Oral, qWeek, # 4 cap(s), 11 Refill(s), [facility]acy: [facility] #[id number], 165, cm, 03/09/23 7:57:00 EDT, Height, kg, 03/09/23 7:57:00 EDT, Dosing Weight Start Date: 03/11/23 Stop Date: 02/10/24 Status: Ordered Clindamycin (1 source) Lincosamide Antibacterial Start: 09-12-2024 Clindamycin (Eqv-Clindagel) 1% topical gel Dose = 1 toy, Topical, BID, # 30 gram(s), 11 Refill(s), Pharmacy: [facility]acy #[id number], 165, cm, 09/12/24 11:26:00 EDT, [...] 0 Refill(s), 06/18/21 7:05:00 EST, Pharmacy: [facility] 162.56, [...] sites, # 2 EA, 4 Refill(s), Pharmacy: [facility], 162, cm, 02/12/25 15:11:00 [...] sites, # 6 mL, 3 Refill(s), Pharmacy: [facility], 165, cm, 09/12/24 11:26:00 [...] q2wk, # 6 EA, 2 Refill(s), [id number], 163, cm, 11/03/23 10:39:00 EDT, Height, kg, [...] qDay, # 90 tab(s), 3 Refill(s), Pharmacy: [facility] #330, 97.9, cm, 08/25/24 8:29:00 EST, Height, kg, 08/25/24 8:29:00 EST, Dosing Weight Start Date: 08/25/24 Status: Ordered Quantity: 90.0 Unit: tab(s) Repeat number: 4 famotidine 20 mg oral tablet (2 sources) Histamine-2 Receptor Antagonist Start: 06-11-2021 Pepcid 20 mg oral tablet Dose : 20 mg = 1 tab(s), Oral, qDay, # 30 tab(s), 0 Refill(s), [facility]: [facility], 162.56, cm, 06/10/21 13:32:00 EST, Height, [...] qDay, # 30 cap(s), 11 Refill(s), Pharmacy: [facility]/pharmacy #4605, 162, cm, 04/25/25 15:06:00 EDT, [...] Swelling, # 30 tab(s), 5 Refill(s), Pharmacy: [facility], 162, cm, 02/12/25 15:11:00 EDT, Height, kg, 02/12/25 15:11:00 EDT, Dosing Weight Start Date: 03/15/25 Status: Ordered Medication Dispense Status: Completed Quantity: 30.0 Unit: tab(s) Total Allowed Fills: 6 Fills Dispensed: 0 Start: 08-22-2024 furosemide 20 mg oral tablet Dose : 20 mg = 1 tab(s), Oral, qDay, PRN Swelling, # 30 tab(s), 5 Refill(s), Pharmacy: [facility], 165, cm, 07/18/24 16:01:00 EST, Height, kg, 07/18/24 16:01:00 EST, Dosing Weight Start Date: 08/22/24 Status: Ordered Medication Dispense Status: Completed Quantity: 30.0 Unit: tab(s) Total Allowed Fills: 6 Fills Dispensed: 0 Start: 10-12-2023 furosemide 20 mg oral tablet Dose : 20 mg = 1 tab(s), Oral, qDay, PRN Swelling, # 30 tab(s), 5 Refill(s), [id number], 165, cm, 10/12/23 13:32:00 EDT, Height, kg, [...] 120 tab(s), 6 Refill(s), [facility]acy: [facility] #[id number], 162.6, cm, 12/02/21 14:57:00 EDT, Height, kg, [...] each, # 22 gram(s), 0 Refill(s), Pharmacy: [facility], Ointment, 162, cm, 01/23/25 [...] BID, # 60 gram(s), 0 Refill(s), Pharmacy: [facility] #[id number], Powder, 165, cm, 09/12/24 11:26:00 EDT, Height, [...] 0 Refill(s), 01/30/25 12:37:00 PM EDT, Pharmacy: [facility] #[id number], 162.6, cm, 01/26/25 14:07:00 EDT, [...] 06/18/21 7:06:00 EST, Pharm[facility]: [facility], 162.56, cm, 06/10/21 13:32:00 EST, Height, kg, [...] 0 Refill(s), 01/31/25 7:45:00 AM EDT, Pharmacy: [facility]/pharmacy #[id number], Acute postoperative pain, 162.6, cm, [...] BID, # 60 cap(s), 11 Refill(s), Pharmacy: [facility], 165, cm, 10/24/24 13:55:00 EDT, Height, kg, 10/24/24 13:55:00 EDT, Dosing Weight Start Date: 11/21/24 Status: Ordered Medication Dispense Status: Completed Quantity: 60.0 Unit: cap(s) Total Allowed Fills: 12 Fills Dispensed: 0 Start: 10-12-2023 potassium chlo ride 10 mEq oral capsule, extended release Dose : 10 mEq = 1 cap(s), Oral, BID, # 60 cap(s), 11 Refill(s), Pharmacy: [facility] #[id number], 165, cm, 10/12/23 13:32:00 EDT, Height, kg, 10/12/23 13:59:00 EDT, Dosing Weight Start Date: 10/12/23 Status: Ordered Quantity: 60.0 Unit: cap(s) Repeat number: 12 pravastatin sodium 20 mg oral tablet (16 sources) HMG-CoA Reductase Inhibitor Start: 09-15-2022 pravastatin 20 mg or al tablet Dose : 20 mg = 1 tab(s), Oral, qDay, # 90 tab(s), 1 Refill(s), Pharmacy: [facility] #[id number], 162.6, cm, 12/02/21 14:57:00 EDT, Height, kg, 12/02/21 14:57:00 EDT, Dosing Weight Start Date: 09/15/22 Status: Ordered Start: 04-15-2022 take 10 mg by mouth at bedtime Pravastatin Active 10 MG PO AT BEDTIME April 14, 2022 11:00pm Start: 12-22-2021 pravastatin 20 mg oral tablet Dose : 20 mg = 1 tab(s), Oral, qDay, # 30 tab(s), 5 Refill(s), Pharmacy: [facility] [address] 162.6, cm, 12/02/21 14:57:00 EDT, Height Start Date: 12/22/21 Status: Ordered Start: 08-11-2021 pravastatin 10 mg oral tablet Dose : 10 mg = 1 tab(s), Oral, qDay, # 90 tab(s), 3 Refill(s), Pharmacy: [facility] [address] 162.56, cm, 06/10/21 13:32:00 EST, Height, kg, 06/10/21 13:32:00 EST, Dosing Weight Start Date: 08/11/21 Status: Ordered Start: 04-21-2021 pravastatin 10 mg oral tablet Dose : 10 mg = 1 tab(s), Oral, qDay, # 90 tab(s), 3 Refill(s), Pharmacy: [facility] [address] 162, cm, 02/10/21 15:26:00 EDT, Height, kg, 11/18/20 10:07:00 EDT, Dosing Weight Start Date: 04/21/21 Status: Ordered sennosides, [facility] (1 source) Start: 06-11-2021 End: 06-14-2021 take 1 tablet by mouth twice daily Senokot S 50 mg-8.6 mg oral tablet Dose = 2 tab(s), Oral, BID, Take until first bowel movement, then as needed, # 30 tab(s), 0 Refill(s), Pharmacy: [facility] [address] 162.56, cm, 06/10/21 13:32:00 [...] day(s), # 10 tab(s), 0 Refill(s), Pharmacy: [facility] #[id number], 162, cm, 05/02/25 13:18:00 EST, [...] 2 mL, 2 Refill(s), 0.5 mL/Pen, Pharmacy: [facility], 163, cm, 11/03/23 10:39:00 EDT, Height, kg, 11/03/23 10:39:00 EDT, Dosing Weight Start Date: 11/04/23 Status: Ordered Start: 08-27-2023 inject 1 dose by sub cutaneous injection every week Trulicity Pen 4.5 mg/0.5 mL subcutaneous solution Dose : 0.5 mL =, Subcutaneous, qWeek, rotate injection sites, # 2 mL, 1 Refill(s), Pharmacy: [facility], 165, cm, 05/26/23 9:20:00 EST, Height, kg, 05/26/23 9:20:00 EST, Dosing Weight Start Date: 08/27/23 Status: Ordered Start: 01-29-2023 inject 1 dose by sub cutaneous injection every week Trulicity Pen 4.5 mg/0.5 mL subcutaneous solution Dose : 0.5 mL =, Subcutaneous, qWeek, rotate injection sites, # 2 mL, 6 Refill(s), [id number], 165, cm, 12/26/22 16:52:00 EDT, Height, kg, [...] dose, # 2 mL, 11 Refill(s), Pharmacy: [facility] [address] 162.56, cm, 06/10/21 13:32:00 EST, Height, kg, 06/10/21 13:32:00 EST, Dosing Weight Start Date: 09/30/21 Status: Ordered Start: 03-14-2021 inject 1 dose by sub cutaneous injection every week Trulicity Pen 4.5 mg/0.5 mL subcutaneous solution Dose : 0.5 mL =, Subcutaneous, qWeek, rotate injection sites. To replace the 3mg dose, # 2 mL, 6 Refill(s), Pharmacy: [facility] [address] 162, cm, 02/10/21 15:26:00 EDT, Height, kg, 11/18/20 10:07:00 EDT, Dosing Weight Start Date: 03/14/21 Status: Ordered Start: 10-30-2019 End: 04-23-2022 Dulaglutide (Trulicity) 0.75 mg/0.5 mL pen injector Discontinued 1.5 MG SC October 29, 2019 11:00pm April 23, 2022 2:23pm ergocalciferol 40843 unt oral capsule (1 source) Provitamin D2 Compound Start: 09-20-2009 End: 07-04-2010 VITAMIN D, [id number] (Oral Capsule) 1 (one) Capsule twice weely [...] Quantity: 30 {Tablet} Refills: 0 Ordered: 15-Feb-2012 Lizbeht Dangelo LPN Start : 10-Nov-2010 End : [...] degen with disc herniation extruded inferiorlyOR at [facility] Dr. Luu 10-23-09 Spondylosis; intervertebral disc [...] Probable Contamination. Suggest recollection if clinically indicated. [facility] .GFRon 04-27-2025 Estimated Glomerular Filtration Rate 90 ml/min/1.73sqm Normal [facility] Comment on above: Result Comment: Stages of [...] BC, ADIFF, GFR, PRO, CMP, ANEU #### [address] [address] A1Con 04-27-2025 Glucose [Mass/Vol] 105 mg/dL Normal [facility] Comment on above: Result Comment: Myla mated Average Glucose calculated by equation ((28.7xA1C)-46.7) Estimated average glucose (eAG) is a calculated value from Hemoglobin A1C and is enrollment eligibility representative of the average blood glucose level in the last 2-3 month period. Normal range: less than 114 mg/dL Performed By: #### C BC, ADIFF, GFR, PRO, CMP, ANEU #### [address] [place], [place] [address] HbA1c (Bld) [Mass fraction] 5.3 % Normal 4.3-6.4 [facility] Comment on above: Performed By: #### C BC, ADIFF, GFR, PRO, CMP, ANEU #### [address] [place], [place] [address] CMPon 04-27-2025 Albumin Level 2.9 G/dL Low 3.5-5.0 [facility] Comment on above: Performed By: #### C BC, ADIFF, GFR, PRO, CMP, ANEU #### [address] [address] Albumin/Globulin [Mass ratio] 0.7 {ratio} Low 1.1-2.5 [facility] Comment on above: Performed By: #### C BC, ADIFF, GFR, PRO, CMP, ANEU #### [address] [place] [address] ALP [Catalytic activity/Vol] 349 U/L High 40-135 [facility] Comment on above: Performed By: #### C BC, ADIFF, GFR, PRO, CMP, ANEU #### [address] [place] [address] ALT [Catalytic activity/Vol] 28 U/L Normal 14-59 [facility] Comment on above: Performed By: #### C BC, ADIFF, GFR, PRO, CMP, ANEU #### [address] [place] [address] AST [Catalytic activity/Vol] 71 U/L High 10-40 [facility] Comment on above: Performed By: #### C BC, ADIFF, GFR, PRO, CMP, ANEU #### [place] [address] Bili Total 2.8 mg/dL High 0.2-1.0 [facility] Comment on above: Result Comment: Use of this assay is not recommended for patients undergoing treatment with eltrombopag due to the potential for falsely elevated results. Performed By: #### C BC, ADIFF, GFR, PRO, CMP, ANEU #### [address] [place] [address] BUN/Creatinine Ratio 9 ratio Normal 7-27 [facility] Comment on above: Performed By: #### C BC, ADIFF, GFR, PRO, CMP, ANEU #### [address] [place] [address] Calcium [Mass/Vol] 8.6 mg/dL Normal 8.4-10.2 [facility] Comment on above: Performed By: #### C BC, ADIFF, GFR, PRO, CMP, ANEU #### [place] [address] Chloride [Moles/Vol] 107 mmol/L Normal 98-107 [facility] Comment on above: Performed By: #### C BC, ADIFF, GFR, PRO, CMP, ANEU #### [place] [address] CO2 [Moles/Vol] 24 mmol/L Normal 22-29 [facility] Comment on above: Performed By: #### C BC, ADIFF, GFR, PRO, CMP, ANEU #### [place] [address] Creatinine [Mass/Vol] 0.76 mg/dL Normal 0.51-0.95 [facility] Comment on above: Performed By: #### C BC, ADIFF, GFR, PRO, CMP, ANEU #### [address] [place] [address] Electrolyte Balance 6.0 mEq/L Normal 4.0-15.0 [facility] Comment on above: Performed By: #### C BC, ADIFF, GFR, PRO, CMP, ANEU #### [address] [place] [address] Globulin 4.3 G/dL Normal 2.7-4.4 [facility] Comment on above: Performed By: #### C BC, ADIFF, GFR, PRO, CMP, ANEU #### [place] [address] Glucose [Mass/Vol] 149 mg/dL High 70-105 [facility] Comment on above: Performed By: #### C BC, ADIFF, GFR, PRO, CMP, ANEU #### [place] [address] Potassium [Moles/Vol] 4.4 mmol/L Normal 3.5-5.1 [facility] Comment on above: Performed By: #### C BC, ADIFF, GFR, PRO, CMP, ANEU #### [address] [address] Sodium [Moles/Vol] 137 mmol/L Normal 136-145 [facility] Comment on above: Performed By: #### C BC, ADIFF, GFR, PRO, CMP, ANEU #### [address] [address] Total Protein 7.2 G/dL Normal 6.4-8.2 [facility] Comment on above: Performed By: #### C BC, ADIFF, GFR, PRO, CMP, ANEU #### [address] [place], [place] [address] Urea nitrogen [Mass/Vol] 7 mg/dL Normal 7-18 [facility] Comment on above: Performed By: #### C BC, ADIFF, GFR, PRO, CMP, ANEU #### [address] [address] LABORATORYOrdered By: SYSTEM SYSTEM on 04-27-2025 Albumin [...] calculated value from Hemoglobin A1C and is enrollment eligibility representative of the average blood glucose level [...] 04-27-2025 Magnesium [Mass/Vol] 1.9 mg/dL Normal 1.8-2.4 [facility] Comment on above: Performed By: #### C BC, ADIFF, GFR, PRO, CMP, ANEU #### [facility] [address] [place], [place] [address] No Panel Informationon 04-25 Culture Urine 10,000 - 50,000 cfu/ ml Mixed growth consistent with normal urogenital patrice. [facility] Urgent Care Visit Reporton 1 Urgent Care Visit Report [facility] [address], [address] [place], [place] [id number] OFFICE VISIT Date of Service: 04/20/25 MR#: [id number] Acct: [id number] Name: SONDRA DUVAL Rep #: [id number] : 1965 Provider: AKBAR Randall Age/Sex: 59/F Location: [facility] Status: Signed Intake Vital Signs 04/23/22 15:22 [...] bladder is not completely emptying. Started today. [facility] Medical History Atherosclerotic heart disease [place] coronary artery without angina pectoris History of [place] (myocardial infarction) Hyperlipidemia Mixed hyperlipidemia Tobacco abuse [...] type: does not use caffeine: Yes (occasional) [facility] HPI Chief Complaint: UTI Details: SONDRA [...] Ramires on 04/20/25 15:10 Off Ur Spec [place] >1.030 Last Edit by Karly Ramires on [...] Urine Protein 2+ Last Edit by Karly Raimres on 04/20/25 15:10 Office Urine Nitrate Negative [...] (unless contraindic (more content not included)... Normal [facility] LABORATORYOrdered By: Yadira Whitt on 03-17-2025 Cholesterol [...] 03-17-2025 Cholesterol [Mass/Vol] 230 mg/dL High 0-200 [facility] Comment on above: Result Comment: Chol esterol Reference Interval: Less than 200 Desirable 200-239 Borderline high risk 240 and above High risk Performed By: #### C BC, ADIFF, GFR, PRO, CMP, ANEU #### [address] [place] [address] Cholesterol in HDL [Mass/Vol] 59 mg/dL Normal 40-60 [facility] Comment on above: Performed By: #### C BC, ADIFF, GFR, PRO, CMP, ANEU #### [place] [address] Cholesterol in LDL [Mass/Vol] 149 mg/dL High 0-130 [facility] Comment on above: Performed By: #### C BC, ADIFF, GFR, PRO, CMP, ANEU #### [address] [place] [address] Triglyceride [Mass/Vol] 110 mg/dL Normal 0-150 [facility] Comment on above: Result Comment: Trig lyceride Reference Interval: Less than 150 Normal 150-199 Borderline high risk 200-499 High risk 500 or higher Very high risk Performed By: #### C BC, ADIFF, GFR, PRO, CMP, ANEU #### [address] [address] .Auto Diffon 01-31-2025 Basophil, Absolute 0.0 10 3/mcL Normal 0.0-0.3 [facility] [facility] Comment on above: Performed By: #### C BC, ADIFF, GFR, PRO, CMP, ANEU #### [place] [address] Basophils/100 WBC (Bld) 0.3 % Normal 0.0-2.5 [facility] Comment on above: Performed By: #### C BC, ADIFF, GFR, PRO, CMP, ANEU #### [place] [address] Eosinophil, Absolute 0.3 10 3/mcL Normal 0.0-0.7 [facility] Comment on above: Performed By: #### C BC, ADIFF, GFR, PRO, CMP, ANEU #### [address] [address] Eosinophils/100 WBC (Bld) 6.7 % High 0.0-6.0 [facility] Comment on above: Performed By: #### C BC, ADIFF, GFR, PRO, CMP, ANEU #### [address] [address] Lymphocyte, Absolute 1.1 10 3/mcL Normal 0.9-4.3 [facility] Comment on above: Performed By: #### C BC, ADIFF, GFR, PRO, CMP, ANEU #### [address] [address] Lymphocytes/100 WBC (Bld) 23.4 % Normal 20.0-40.0 [facility] Comment on above: Performed By: #### C BC, ADIFF, GFR, PRO, CMP, ANEU #### [address] [address] Monocyte, Absolute 0.5 10 3/mcL Normal 0.1-1.4 [facility] Comment on above: Performed By: #### C BC, ADIFF, GFR, PRO, CMP, ANEU #### [address] [address] Monocytes/100 WBC (Bld) 9.9 % Normal 2.0-13.0 [facility] Comment on above: Performed By: #### C BC, ADIFF, GFR, PRO, CMP, ANEU #### [address] [address] Neutrophils/100 WBC (Bld) 59.7 % Normal 50.0-75.0 [facility] Comment on above: Performed By: #### C BC, ADIFF, GFR, PRO, CMP, ANEU #### [address] [address] .GFRon 01-31-2025 Estimated Glomerular Filtration Rate 72 ml/min/1.73sqm Normal [facility] Comment on above: Result Comment: Stages of [...] BC, ADIFF, GFR, PRO, CMP, ANEU #### [place] [id number] .NEUABSon 01-31-2025 Neutrophil, Absolute 2.8 10 3/mcL Normal 2.3-8.1 [facility] Comment on above: Performed By: #### C BC, ADIFF, GFR, PRO, CMP, ANEU #### [place] [id number] CBCon 01-31-2025 Erythrocyte distribution width (RBC) [Ratio] 15.4 % Normal 11.5-15.5 [facility] Comment on above: Performed By: #### C BC, ADIFF, GFR, PRO, CMP, ANEU #### [place] [address] Hematocrit (Bld) [Volume fraction] 34.0 % Normal 34.0-46.0 [facility] Comment on above: Performed By: #### C BC, ADIFF, GFR, PRO, CMP, ANEU #### [place] [address] Hgb 11.8 G/dL Low 12.0-16.0 [facility] Comment on above: Performed By: #### C BC, ADIFF, GFR, PRO, CMP, ANEU #### [place] [address] MCH (RBC) [Entitic mass] 36.6 pg High 27.0-33.0 [facility] Comment on above: Performed By: #### C BC, ADIFF, GFR, PRO, CMP, ANEU #### [address] [address] MCHC 34.7 G/dL Normal 32.0-36.0 [facility] Comment on above: Performed By: #### C BC, ADIFF, GFR, PRO, CMP, ANEU #### [address] [address] MCV (RBC) [Entitic vol] 105.4 fL High 80.0-99.0 [facility] Comment on above: Performed By: #### C BC, ADIFF, GFR, PRO, CMP, ANEU #### [address] [address] Platelet 73 10 3/mcL Low 150-450 [facility] Comment on above: Performed By: #### C BC, ADIFF, GFR, PRO, CMP, ANEU #### [address] [address] Platelet mean volume (Bld) [Entitic vol] 10.3 fL Normal 6.6-10.5 [facility] Comment on above: Performed By: #### C BC, ADIFF, GFR, PRO, CMP, ANEU #### [address] [address] RBC 3.22 10 6/mcL Low 4.10-5.30 [facility] Comment on above: Performed By: #### C BC, ADIFF, GFR, PRO, CMP, ANEU #### [address] [address] WBC 4.7 10 3/mcL Normal 4.5-10.8 [facility] Comment on above: Performed By: #### C BC, ADIFF, GFR, PRO, CMP, ANEU #### [address] [address] CMPon 01-31-2025 Albumin Level 2.6 G/dL Low 3.5-5.0 [facility] Comment on above: Performed By: #### C BC, ADIFF, GFR, PRO, CMP, ANEU #### [place] [address] Albumin/Globulin [Mass ratio] 0.7 {ratio} Low 1.1-2.5 [facility] Comment on above: Performed By: #### C BC, ADIFF, GFR, PRO, CMP, ANEU #### [place] [address] ALP [Catalytic activity/Vol] 213 U/L High 40-135 [facility] Comment on above: Performed By: #### C BC, ADIFF, GFR, PRO, CMP, ANEU #### [place] [address] ALT [Catalytic activity/Vol] 53 U/L Normal 14-59 [facility] Comment on above: Performed By: #### C BC, ADIFF, GFR, PRO, CMP, ANEU #### [place] [address] AST [Catalytic activity/Vol] 63 U/L High 10-40 [facility] Comment on above: Performed By: #### C BC, ADIFF, GFR, PRO, CMP, ANEU #### [address] [address] Bili Total 3.2 mg/dL High 0.2-1.0 [facility] Comment on above: Result Comment: Use of this assay is not recommended for patients undergoing treatment with eltrombopag due to the potential for falsely elevated results. Performed By: #### C BC, ADIFF, GFR, PRO, CMP, ANEU #### [place] [address] BUN/Creatinine Ratio 8 ratio Normal 7-27 [facility] Comment on above: Performed By: #### C BC, ADIFF, GFR, PRO, CMP, ANEU #### [place] [address] Calcium [Mass/Vol] 8.9 mg/dL Normal 8.4-10.2 [facility] Comment on above: Performed By: #### C BC, ADIFF, GFR, PRO, CMP, ANEU #### [place] [address] Chloride [Moles/Vol] 104 mmol/L Normal 98-107 [facility] Comment on above: Performed By: #### C BC, ADIFF, GFR, PRO, CMP, ANEU #### [place] [address] CO2 [Moles/Vol] 28 mmol/L Normal 22-29 [facility] Comment on above: Performed By: #### C BC, ADIFF, GFR, PRO, CMP, ANEU #### [place] [address] Creatinine [Mass/Vol] 0.92 mg/dL Normal 0.51-0.95 [facility] Comment on above: Performed By: #### C BC, ADIFF, GFR, PRO, CMP, ANEU #### [place] [address] Electrolyte Balance 7.0 mEq/L Normal 4.0-15.0 [facility] Comment on above: Performed By: #### C BC, ADIFF, GFR, PRO, CMP, ANEU #### [address] [address] Globulin 3.9 G/dL Normal 2.7-4.4 [facility] Comment on above: Performed By: #### C BC, ADIFF, GFR, PRO, CMP, ANEU #### [place] [address] Glucose [Mass/Vol] 130 mg/dL High 70-105 [facility] Comment on above: Performed By: #### C BC, ADIFF, GFR, PRO, CMP, ANEU #### [place] [address] Potassium [Moles/Vol] 4.1 mmol/L Normal 3.5-5.1 [facility] Comment on above: Performed By: #### C BC, ADIFF, GFR, PRO, CMP, ANEU #### [place] [address] [place], [place] [address] Sodium [Moles/Vol] 139 mmol/L Normal 136-145 [facility] Comment on above: Performed By: #### C BC, ADIFF, GFR, PRO, CMP, ANEU #### [place] [address] [place], [place] [address] Total Protein 6.5 G/dL Normal 6.4-8.2 [facility] Comment on above: Performed By: #### C BC, ADIFF, GFR, PRO, CMP, ANEU #### [place] [address] [place], [place] [address] Urea nitrogen [Mass/Vol] 7 mg/dL Normal 7-18 [facility] Comment on above: Performed By: #### C BC, ADIFF, GFR, PRO, CMP, ANEU #### [place] [address] LABORATORYOrdered By: SYSTEM SYSTEM on 01-31-2025 Albumin [...] Comment on above: Interpretive Data: [employer]inesse davis [employer] (CHEST, 1992, 102:312S-25S) [...] above: Result Comment: No c lot-ok - [id number] - 01/31/25, 11:33 AM RBC (Bld) [#/Vol] [...] Coag (PPP) [Time] 16.7 s High 9.0-14.4 [facility] Comment on above: Result Comment: No c lot-ok - [id number] - 01/31/25, 11:33 AM Performed By: #### C BC, ADIFF, GFR, PRO, CMP, ANEU #### [address] [address] PT International Ratio 1.4 Normal [facility] Comment on above: Result Comment: [employer] (CHEST, 1992, 102:312S-25S) recommended therapeutic range for oral anticoagulant therapy is: LOW RISK: Prophylaxis of venous thrombosis INR: 2.0-3.0 Treatment of pulmonary embolism 2.0-3.0 Prevention of systemic embolism 2.0-3.0 HIGH RISK: Mechanical prosthetic valves 2.5-3.5 Performed By: #### C BC, ADIFF, GFR, PRO, CMP, ANEU #### [address] [address] Final Surgical Pathology Rep [facility] 01-30-2025 Final Surgical Pathology Report . Pathology Reports Accession: Collected Date/Time: Received Date/Time: Pathologist: [id number] 01/26/2025 11:40 EDT 01/29/2025 07:35 EDT NADIA BAGLEY MD Final Surgical Pathology Report DIAGNOSIS: GALLBLADDER: - CHRONIC CHOLECYSTITIS WITH CHOLELITHIASIS CLINICAL INFORMATION: Procedure: ROBOTIC CHOLECYSTECTOMY Preoperative diagnosis: CHOLECYSTITIS Postoperative diagnosis: CHOLECYSTITIS SPECIMEN: A GALLBLADDER GROSS DESCRIPTION: All parts labelled with patient name and [id number] Received in formalin, labeled gallbladder is a [...] Only. Verified by Pathology Report verified by [facility] NADIA BAGLEY Sign out Date: 01/30/2025 14:53 Performing Lab: [facility], [facility][note 3][address] [place] [id number] [place] [address] Pathology Dept Disclaimer If ancillary studies were utilized, the following Laboratory Developed Test (LDT) disclaimer will apply: Under CLIA requirements, [facility] is qualified to perform high complexity testing. For all ancillary stains, positive and negative controls stain appropriately. Performance characteristics of immunohistochemical and chromogenic in-situ hybridization tests have been determined by [facility]ology [facility]. These tests are used for clinical purposes, They should not be regarded as investigational or for research. Normal [facility] .Auto Diffon 01-28-2025 Basophil, Absolute 0.0 10 3/mcL Normal 0.0-0.3 [facility] Comment on above: Performed By: #### P RO, GFR, CMP, ADIFF, ANEU, CBC ####[address] [address] Basophils/100 WBC (Bld) 0.2 % Normal 0.0-2.5 [facility] Comment on above: Performed By: #### P RO, GFR, CMP, ADIFF, ANEU, CBC ####[address] [address] Eosinophil, Absolute 0.1 10 3/mcL Normal 0.0-0.7 [facility] Comment on above: Performed By: #### P RO, GFR, CMP, ADIFF, ANEU, CBC ####[address] [address] Eosinophils/100 WBC (Bld) 2.0 % Normal 0.0-6.0 [facility] Comment on above: Performed By: #### P RO, GFR, CMP, ADIFF, ANEU, CBC ####[address] [address] Lymphocyte, Absolute 1.1 10 3/mcL Normal 0.9-4.3 [facility] Comment on above: Performed By: #### P RO, GFR, CMP, ADIFF, ANEU, CBC ####[address] [address] Lymphocytes/100 WBC (Bld) 15.6 % Low 20.0-40.0 [facility] Comment on above: Performed By: #### P RO, GFR, CMP, ADIFF, ANEU, CBC ####[address] [address] Monocyte, Absolute 0.6 10 3/mcL Normal 0.1-1.4 [facility] Comment on above: Performed By: #### P RO, GFR, CMP, ADIFF, ANEU, CBC ####[address] [address] Monocytes/100 WBC (Bld) 8.0 % Normal 2.0-13.0 [facility] Comment on above: Performed By: #### P RO, GFR, CMP, ADIFF, ANEU, CBC ####[address] [address] Neutrophils/100 WBC (Bld) 74.2 % Normal 50.0-75.0 [facility] Comment on above: Performed By: #### P RO, GFR, CMP, ADIFF, ANEU, CBC ####[address] [address] .GFRon 01-28-2025 Estimated Glomerular Filtration Rate 96 ml/min/1.73sqm Normal [facility] Comment on above: Result Comment: [...] RO, GFR, CMP, ADIFF, ANEU, CBC #### [address] [address] .NEUABSon 01-28-2025 Neutrophil, Absolute 5.1 10 3/mcL Normal 2.3-8.1 [facility] Comment on above: Performed By: #### P RO, GFR, CMP, ADIFF, ANEU, CBC ####[place] [address] CBCon 01-28-2025 Erythrocyte distribution width (RBC) [Ratio] 14.8 % Normal 11.5-15.5 [facility] Comment on above: Performed By: #### P RO, GFR, CMP, ADIFF, ANEU, CBC ####[place] [address] Hematocrit (Bld) [Volume fraction] 31.1 % Low 34.0-46.0 [facility] Comment on above: Performed By: #### P RO, GFR, CMP, ADIFF, ANEU, CBC ####[place] [address] Hgb 10.9 G/dL Low 12.0-16.0 [facility] Comment on above: Performed By: #### P RO, GFR, CMP, ADIFF, ANEU, CBC ####[place] [address] MCH (RBC) [Entitic mass] 36.5 pg High 27.0-33.0 [facility] Comment on above: Performed By: #### P RO, GFR, CMP, ADIFF, ANEU, CBC ####[place] [address] MCHC 35.1 G/dL Normal 32.0-36.0 [facility] Comment on above: Performed By: #### P RO, GFR, CMP, ADIFF, ANEU, CBC ####[address] [address] MCV (RBC) [Entitic vol] 104.1 fL High 80.0-99.0 [facility] Comment on above: Performed By: #### P RO, GFR, CMP, ADIFF, ANEU, CBC ####[address] [address] Platelet 71 10 3/mcL Low 150-450 [facility] Comment on above: Performed By: #### P RO, GFR, CMP, ADIFF, ANEU, CBC ####[place] [address] Platelet mean volume (Bld) [Entitic vol] 10.5 fL Normal 6.6-10.5 [facility] Comment on above: Performed By: #### P RO, GFR, CMP, ADIFF, ANEU, CBC ####[place] [address] RBC 2.98 10 6/mcL Low 4.10-5.30 [facility] Comment on above: Performed By: #### P RO, GFR, CMP, ADIFF, ANEU, CBC ####[place] [address] WBC 6.9 10 3/mcL Normal 4.5-10.8 [facility] Comment on above: Performed By: #### P RO, GFR, CMP, ADIFF, ANEU, CBC ####[place] [address] CMPon 01-28-2025 Albumin Level 2.8 G/dL Low 3.2-4.8 [facility] Comment on above: Performed By: #### P RO, GFR, CMP, ADIFF, ANEU, CBC #### [place] [address] Albumin/Globulin [Mass ratio] 0.8 {ratio} Low 0.9-1.6 [facility] Comment on above: Performed By: #### P RO, GFR, CMP, ADIFF, ANEU, CBC #### [place] [address] ALP [Catalytic activity/Vol] 161 U/L High 38-126 [facility] Comment on above: Performed By: #### P RO, GFR, CMP, ADIFF, ANEU, CBC #### [address] [address] ALT [Catalytic activity/Vol] 35 U/L Normal 10-49 [facility] Comment on above: Performed By: #### P RO, GFR, CMP, ADIFF, ANEU, CBC #### [address] [address] AST [Catalytic activity/Vol] 57 U/L High 8-34 [facility] Comment on above: Performed By: #### P RO, GFR, CMP, ADIFF, ANEU, CBC #### [address] [address] Bili Total 3.10 mg/dL High 0.20-1.20 [facility] Comment on above: Result Comment: Use of this assay is not recommended for patients undergoing treatment with eltrombopag due to the potential for falsely elevated results. Performed By: #### P RO, GFR, CMP, ADIFF, ANEU, CBC #### [address] [address] BUN/Creatinine Ratio 15.3 ratio Normal 10.0-22.0 [facility] Comment on above: Performed By: #### P RO, GFR, CMP, ADIFF, ANEU, CBC #### [address] [address] Calcium [Mass/Vol] 8.4 mg/dL Low 8.7-10.4 [facility] Comment on above: Performed By: #### P RO, GFR, CMP, ADIFF, ANEU, CBC #### [address] [address] Chloride [Moles/Vol] 107 mmol/L Normal 98-110 [facility] Comment on above: Performed By: #### P RO, GFR, CMP, ADIFF, ANEU, CBC #### [address] [address] CO2 [Moles/Vol] 26 mmol/L Normal 22-32 [facility] Comment on above: Performed By: #### P RO, GFR, CMP, ADIFF, ANEU, CBC #### [place] [id number] Creatinine [Mass/Vol] 0.72 mg/dL Normal 0.50-1.20 [facility] Comment on above: Result Comment: Test ing performed on [employer] analyzer using enzymatic creatinine methodology. Performed By: #### P RO, GFR, CMP, ADIFF, ANEU, CBC #### [place] [id number] Electrolyte Balance 7.0 mEq/L Normal 4.0-15.0 [facility] Comment on above: Performed By: #### P RO, GFR, CMP, ADIFF, ANEU, CBC #### [address] [address] Globulin 3.4 G/dL Normal 2.5-4.2 [facility] Comment on above: Performed By: #### P RO, GFR, CMP, ADIFF, ANEU, CBC #### [place] [id number] Glucose [Mass/Vol] 133 mg/dL High 70-110 [facility] Comment on above: Performed By: #### P RO, GFR, CMP, ADIFF, ANEU, CBC #### [place] [id number] Potassium [Moles/Vol] 4.0 mmol/L Normal 3.5-5.0 [facility] Comment on above: Performed By: #### P RO, GFR, CMP, ADIFF, ANEU, CBC #### [place] [id number] Sodium [Moles/Vol] 140 mmol/L Normal 136-145 [facility] Comment on above: Performed By: #### P RO, GFR, CMP, ADIFF, ANEU, CBC #### [place] [id number] Total Protein 6.2 G/dL Normal 5.7-8.2 [facility] Comment on above: Performed By: #### P RO, GFR, CMP, ADIFF, ANEU, CBC #### [address] [address] Urea nitrogen [Mass/Vol] 11.0 mg/dL Normal 8.0-22.0 [facility] Comment on above: Performed By: #### P RO, GFR, CMP, ADIFF, ANEU, CBC #### [place] [address] HHon 01-28-2025 Hematocrit (Bld) [Volume fraction] 29.9 % Low 34.0-46.0 [facility] Comment on above: Performed By: #### A MEAGAN HARRIS #### [place] [address] Hgb 10.6 G/dL Low 12.0-16.0 [facility] Comment on above: Performed By: #### A MEAGAN HARRIS #### [place] [address] Hematocrit (Bld) [Volume fraction] 29.1 % Low 34.0-46.0 [facility] Comment on above: Performed By: #### H H #### [place] [address] Hgb 10.3 G/dL Low 12.0-16.0 [facility] Comment on above: Performed By: #### H H #### [place] [address] LABORATORYOrdered By: SYSTEM SYSTEM on 01-28-2025 Hematocrit [...] above: Interpretive Data: T esting performed on [employer] analyzer using enzymatic creatinine methodology. Electrolyte Balance [...] Comment on above: Interpretive Data: [employer] davis [employer] (CHEST, 1991, 102:312S-25S) [...] Coag (PPP) [Relative time] 1.6 {INR} Normal [facility] Comment on above: Result Comment: [employer] (CHEST, 1991, 102:312S-25S) recommended therapeutic range for oral anticoagulant therapy is: LOW RISK: Prophylaxis of venous thrombosis INR: 2.0-3.0 Treatment of pulmonary embolism 2.0-3.0 Prevention of systemic embolism 2.0-3.0 HIGH RISK: Mechanical prosthetic valves 2.5-3.5 Performed By: #### P RO, GFR, CMP, ADIFF, ANEU, CBC #### [address] [address] PT Coag (PPP) [Time] 18.8 s High 9.0-14.4 [facility] Comment on above: Result Comment: Effe ctive 01/10/08, Protime results may be affected by some antibiotics (i.e. Ciprofloxacin, Azithromycin, Bactrim) which may potentiate the action of oral anticoagulants, with further increases in Protime/INR. Performed By: #### P RO, GFR, CMP, ADIFF, ANEU, CBC #### [address] [address] .Auto Diffon 01-27-2025 Basophil, Absolute 0.0 10 3/mcL Normal 0.0-0.3 [facility] Comment on above: Performed By: #### A MEAGAN HARRIS #### [address] [address] Basophils/100 WBC (Bld) 0.2 % Normal 0.0-2.5 [facility] Comment on above: Performed By: #### A MEAGAN HARRIS #### [address] [address] Eosinophil, Absolute 0.0 10 3/mcL Normal 0.0-0.7 [facility] Comment on above: Performed By: #### A MEAGAN HARRIS #### [address] [address] Eosinophils/100 WBC (Bld) 0.2 % Normal 0.0-6.0 [facility] Comment on above: Performed By: #### A MEAGAN HARRIS #### [address] [address] Lymphocyte, Absolute 0.4 10 3/mcL Low 0.9-4.3 [facility] Comment on above: Performed By: #### A MEAGAN HARRIS #### [address] [address] Lymphocytes/100 WBC (Bld) 8.9 % Low 20.0-40.0 [facility] Comment on above: Performed By: #### A MEAGAN HARRIS #### [address] [address] Monocyte, Absolute 0.3 10 3/mcL Normal 0.1-1.4 [facility] Comment on above: Performed By: #### A MEAGAN HARRIS #### [address] [address] Monocytes/100 WBC (Bld) 6.4 % Normal 2.0-13.0 [facility] Comment on above: Performed By: #### A MEAGAN HARRIS #### [address] [address] Neutrophils/100 WBC (Bld) 84.3 % High 50.0-75.0 [facility] Comment on above: Performed By: #### A MEAGAN HARRIS #### [address] [address] .GFRon 01-27-2025 Estimated Glomerular Filtration Rate 86 ml/min/1.73sqm Normal [facility] Comment on above: Result Comment: [...] By: #### MEAGAN PUENTES #### [place] [address] .Morphon 01-27-2025 Anisocytosis Ql (Bld) 1+ Normal [facility] Comment on above: Performed By: #### MEAGAN PUENTES #### [place] [address] Macrocytosis 1+ Normal [facility] Comment on above: Performed By: #### A MEAGAN HARRIS #### [place] [address] Platelet Estimate Grt Decreased Normal [facility] Comment on above: Performed By: #### MEAGAN PUENTES #### [address] [address] .NEUABSon 01-27-2025 Neutrophil, Absolute 4.0 10 3/mcL Normal 2.3-8.1 [facility] Comment on above: Performed By: #### A MEAGAN HARRIS #### [address] [address] CBCon 01-27-2025 Erythrocyte distribution width (RBC) [Ratio] 14.6 % Normal 11.5-15.5 [facility] Comment on above: Performed By: #### A MEAGAN HARRIS #### [place] [address] Hematocrit (Bld) [Volume fraction] 30.6 % Low 34.0-46.0 [facility] Comment on above: Performed By: #### A MEAGAN HARRIS #### [place] [address] Hgb 10.8 G/dL Low 12.0-16.0 [facility] Comment on above: Performed By: #### A MEAGAN HARRIS #### [place] [address] MCH (RBC) [Entitic mass] 37.0 pg High 27.0-33.0 [facility] Comment on above: Performed By: #### A MEAGAN HARRIS #### [place] [address] MCHC 35.4 G/dL Normal 32.0-36.0 [facility] Comment on above: Performed By: #### A MEAGAN HARRIS #### [place] [address] MCV (RBC) [Entitic vol] 104.7 fL High 80.0-99.0 [facility] Comment on above: Performed By: #### A MEAGAN HARRIS #### [place] [address] Platelet 40 10 3/mcL Low 150-450 [facility] Comment on above: Performed By: #### MEAGAN PUENTES #### [place] [address] Platelet mean volume (Bld) [Entitic vol] 8.8 fL Normal 6.6-10.5 [facility] Comment on above: Performed By: #### MEAGAN PUENTES #### [address] [address] RBC 2.92 10 6/mcL Low 4.10-5.30 [facility] Comment on above: Performed By: #### A MEAGAN AHRRIS #### [place] [address] WBC 4.7 10 3/mcL Normal 4.5-10.8 [facility] Comment on above: Performed By: #### A MEAGAN HARRIS #### [place] [address] CMPon 01-27-2025 Albumin Level 2.7 G/dL Low 3.2-4.8 [facility] Comment on above: Performed By: #### A MEAGAN HARRIS #### [place] [address] Albumin/Globulin [Mass ratio] 0.8 {ratio} Low 0.9-1.6 [facility] Comment on above: Performed By: #### A MEAGAN HARRIS #### [address] [address] ALP [Catalytic activity/Vol] 172 U/L High 38-126 [facility] Comment on above: Performed By: #### A MEAGAN HARRIS #### [place] [id number] ALT [Catalytic activity/Vol] 37 U/L Normal 10-49 [facility] Comment on above: Performed By: #### A MEAGAN HARRIS #### [place] [address] AST [Catalytic activity/Vol] 69 U/L High 8-34 [facility] Comment on above: Performed By: #### MEAGAN PUENTES #### [place] [address] Bili Total 2.80 mg/dL High 0.20-1.20 [facility] Comment on above: Result Comment: Use of this assay is not recommended for patients undergoing treatment with eltrombopag due to the potential for falsely elevated results. Performed By: #### MEAGAN PUENTES #### [address] [address] BUN/Creatinine Ratio 17.7 ratio Normal 10.0-22.0 [facility] Comment on above: Performed By: #### A MEAGAN HARRIS #### [address] [address] Calcium [Mass/Vol] 8.2 mg/dL Low 8.7-10.4 [facility] Comment on above: Performed By: #### A MEAGAN HARRIS #### [address] [address] Chloride [Moles/Vol] 105 mmol/L Normal 98-110 [facility] Comment on above: Performed By: #### A MEAGAN HARRIS #### [address] [address] CO2 [Moles/Vol] 22 mmol/L Normal 22-32 [facility] Comment on above: Performed By: #### A MEAGAN HARRIS #### [address] [address] Creatinine [Mass/Vol] 0.79 mg/dL Normal 0.50-1.20 [facility] Comment on above: Result Comment: Test ing performed on [employer] analyzer using enzymatic creatinine methodology. Performed By: #### A MEAGAN HARRIS #### [address] [address] Electrolyte Balance 9.0 mEq/L Normal 4.0-15.0 [facility] Comment on above: Performed By: #### A MEAGAN HARRIS #### [address] [address] Globulin 3.6 G/dL Normal 2.5-4.2 [facility] Comment on above: Performed By: #### MEAGAN PUENTES #### [address] [address] Glucose [Mass/Vol] 278 mg/dL High 70-110 [facility] Comment on above: Performed By: #### MEAGAN PUENTES #### [address] [address] Potassium [Moles/Vol] 4.4 mmol/L Normal 3.5-5.0 [facility] Comment on above: Performed By: #### A MEAGAN HARRIS #### [place] [address] Sodium [Moles/Vol] 136 mmol/L Normal 136-145 [facility] Comment on above: Performed By: #### A MEAGAN HARRIS #### [place] [address] Total Protein 6.3 G/dL Normal 5.7-8.2 [facility] Comment on above: Performed By: #### A MEAGAN HARRIS #### [place] [address] Urea nitrogen [Mass/Vol] 14.0 mg/dL Normal 8.0-22.0 [facility] Comment on above: Performed By: #### A MEAGAN HARRIS #### [place] [address] HHon 01-27-2025 Hematocrit (Bld) [Volume fraction] 32.4 % Low 34.0-46.0 [facility] Comment on above: Performed By: #### H H ####[place] [address] Hgb 11.3 G/dL Low 12.0-16.0 [facility] Comment on above: Performed By: #### H H ####[place] [address] Hematocrit (Bld) [Volume fraction] 29.8 % Low 34.0-46.0 [facility] Comment on above: Performed By: #### A MEAGAN HARRIS #### [place] [address] Hgb 10.4 G/dL Low 12.0-16.0 [facility] Comment on above: Performed By: #### MEAGAN PUENTES #### [place] [address] LABORATORYOrdered By: SYSTEM SYSTEM on 01-27-2025 Hematocrit [...] above: Interpretive Data: T esting performed on [employer] analyzer using enzymatic creatinine methodology. Electrolyte Balance [...] Comment on above: Interpretive Data: Finesse davis [employer] (CHEST, 1992, 102:312S-25S) [...] Coag (PPP) [Relative time] 1.7 {INR} Normal [facility] Comment on above: Result Comment: [employer] (CHEST, 1992, 102:312S-25S) recommended therapeutic range for oral anticoagulant therapy is: LOW RISK: Prophylaxis of venous thrombosis INR: 2.0-3.0 Treatment of pulmonary embolism 2.0-3.0 Prevention of systemic embolism 2.0-3.0 HIGH RISK: Mechanical prosthetic valves 2.5-3.5 Performed By: #### P RO ####[place] [address] [place] [address] PT Coag (PPP) [Time] 20.0 s High 9.0-14.4 [facility] Comment on above: Result Comment: Effe ctive 01/10/08, Protime results may be affected by some antibiotics (i.e. Ciprofloxacin, Azithromycin, Bactrim) which may potentiate the action of oral anticoagulants, with further increases in Protime/INR. Performed By: #### P RO ####[address] [address] Platelet (Product)on 025 Platelet Product Ready Platelet Ready for Pickup Normal [facility] Comment on above: Performed By: #### P LTP #### [address] [address] .Auto Diffon 01-26-2025 Basophil, Absolute 0.0 10 3/mcL Normal 0.0-0.3 [facility] Comment on above: Performed By: #### A MEAGAN HARRIS #### [address] [address] Basophils/100 WBC (Bld) 0.4 % Normal 0.0-2.5 [facility] Comment on above: Performed By: #### A MEAGAN HARRIS #### [address] [address] Eosinophil, Absolute 0.5 10 3/mcL Normal 0.0-0.7 [facility] Comment on above: Performed By: #### A MEAGAN HARRIS #### [address] [address] Eosinophils/100 WBC (Bld) 7.0 % High 0.0-6.0 [facility] Comment on above: Performed By: #### A MEAGAN HARRIS #### [address] [address] Lymphocyte, Absolute 1.1 10 3/mcL Normal 0.9-4.3 [facility] Comment on above: Performed By: #### A MEAGAN HARRIS #### [address] [address] Lymphocytes/100 WBC (Bld) 14.7 % Low 20.0-40.0 [facility] Comment on above: Performed By: #### A MEAGAN HARRIS #### [address] [address] Monocyte, Absolute 0.2 10 3/mcL Normal 0.1-1.4 [facility] Comment on above: Performed By: #### A MEAGAN HARRIS #### [address] [address] Monocytes/100 WBC (Bld) 2.4 % Normal 2.0-13.0 [facility] Comment on above: Performed By: #### A MEAGAN HARRIS #### [address] [address] Neutrophils/100 WBC (Bld) 75.5 % High 50.0-75.0 [facility] Comment on above: Performed By: #### A MEAGAN HARRIS #### [address] [address] Basophil, Absolute 0.0 10 3/mcL Normal 0.0-0.3 [facility] Comment on above: Performed By: #### C BC, ANEU, ADIFF ####[address] [address] Basophils/100 WBC (Bld) 0.8 % Normal 0.0-2.5 [facility] Comment on above: Performed By: #### C BC, ANEU, ADIFF ####[address] [address] Eosinophil, Absolute 0.2 10 3/mcL Normal 0.0-0.7 [facility] Comment on above: Performed By: #### C BC, ANEU, ADIFF ####[address] [address] Eosinophils/100 WBC (Bld) 6.9 % High 0.0-6.0 [facility] Comment on above: Performed By: #### C BC, ANEU, ADIFF ####[address] [address] Lymphocyte, Absolute 0.7 10 3/mcL Low 0.9-4.3 [facility] Comment on above: Performed By: #### C BC, ANEU, ADIFF ####[address] [address] Lymphocytes/100 WBC (Bld) 22.9 % Normal 20.0-40.0 [facility] Comment on above: Performed By: #### C BC, ANEU, ADIFF ####[address] [address] Monocyte, Absolute 0.3 10 3/mcL Normal 0.1-1.4 [facility] Comment on above: Performed By: #### C BC, ANEU, ADIFF ####[address] [address] Monocytes/100 WBC (Bld) 8.0 % Normal 2.0-13.0 [facility] Comment on above: Performed By: #### C BC, ANEU, ADIFF ####[address] [address] Neutrophils/100 WBC (Bld) 61.4 % Normal 50.0-75.0 [facility] Comment on above: Performed By: #### C BC, ANEU, ADIFF ####[address] [address] .NEUABSon 01-26-2025 Neutrophil, Absolute 5.4 10 3/mcL Normal 2.3-8.1 [facility] Comment on above: Performed By: #### A MEAGAN HARRIS #### [address] [address] Neutrophil, Absolute 2.0 10 3/mcL Low 2.3-8.1 [facility] Comment on above: Performed By: #### C BC, ANEU, ADIFF ####[place] [id number] ABO/Rh (Gel)on 01-26-2025 ABO/Rh Interp Negative Invalid Interpretation Code [facility] Comment on above: Performed By: #### A MEAGAN HARRIS #### [place] [id number] ABS (Gel)on 01-26-2025 ABSC Interp (Gel) Negative Normal [facility] Comment on above: Performed By: #### A MEAGAN HARRIS #### [place] [id number] CBCon 01-26-2025 Erythrocyte distribution width (RBC) [Ratio] 14.7 % Normal 11.5-15.5 [facility] Comment on above: Performed By: #### A MEAGAN HARRIS #### [place] [id number] Hematocrit (Bld) [Volume fraction] 36.0 % Normal 34.0-46.0 [facility] Comment on above: Performed By: #### A MEAGAN HARRIS #### [place] [address] Hgb 12.5 G/dL Normal 12.0-16.0 [facility] Comment on above: Performed By: #### A MEAGAN HARRIS #### [place] [id number] MCH (RBC) [Entitic mass] 36.7 pg High 27.0-33.0 [facility] Comment on above: Performed By: #### A MEAGAN HARRIS #### [place] [id number] MCHC 34.9 G/dL Normal 32.0-36.0 [facility] Comment on above: Performed By: #### A MEAGAN HARRIS #### [place] [id number] MCV (RBC) [Entitic vol] 105.1 fL High 80.0-99.0 [facility] Comment on above: Performed By: #### A MEAGAN HARRIS #### [address] [address] Platelet 75 10 3/mcL Low 150-450 [facility] Comment on above: Performed By: #### A MEAGAN HARRIS #### [address] [address] Platelet mean volume (Bld) [Entitic vol] 8.4 fL Normal 6.6-10.5 [facility] Comment on above: Performed By: #### A MEAGAN HARRIS #### [place] [address] RBC 3.42 10 6/mcL Low 4.10-5.30 [facility] Comment on above: Performed By: #### A MEAGAN HARRIS #### [place] [address] WBC 7.2 10 3/mcL Normal 4.5-10.8 [facility] Comment on above: Performed By: #### A MEAGAN HARRIS #### [place] [address] Erythrocyte distribution width (RBC) [Ratio] 14.8 % Normal 11.5-15.5 [facility] Comment on above: Performed By: #### C BRIANNA ANEU, ADIFF ####[place] [address] Hematocrit (Bld) [Volume fraction] 36.7 % Normal 34.0-46.0 [facility] Comment on above: Performed By: #### C BRIANNA ANEU, ADIFF ####[place] [address] Hgb 12.9 G/dL Normal 12.0-16.0 [facility] Comment on above: Performed By: #### C BRIANNA ANEU, ADIFF ####[address] [address] MCH (RBC) [Entitic mass] 36.9 pg High 27.0-33.0 [facility] Comment on above: Performed By: #### C BRIANNA ANEU, ADIFF ####[address] [address] MCHC 35.0 G/dL Normal 32.0-36.0 [facility] Comment on above: Performed By: #### C BRIANNA ANEU, ADIFF ####[place] [address] [place] [address] MCV (RBC) [Entitic vol] 105.3 fL High 80.0-99.0 [facility] Comment on above: Performed By: #### C BRIANNA ANEU, ADIFF ####[place] [address] Platelet 52 10 3/mcL Low 150-450 [facility] Comment on above: Performed By: #### C GEORGE REED, ADIFF ####[place] [address] Platelet mean volume (Bld) [Entitic vol] 9.3 fL Normal 6.6-10.5 [facility] Comment on above: Performed By: #### C BRIANNA ANEU, ADIFF ####[place] [address] RBC 3.48 10 6/mcL Low 4.10-5.30 [facility] Comment on above: Performed By: #### C BRIANNA ANEU, ADIFF ####[place] [address] WBC 3.3 10 3/mcL Low 4.5-10.8 [facility] Comment on above: Performed By: #### C GEORGE REED, ADIFF ####[place] [address] HHon 01-26-2025 Hematocrit (Bld) [Volume fraction] 31.9 % Low 34.0-46.0 [facility] Comment on above: Performed By: #### A MEAGAN HARRIS #### [place] [address] Hgb 10.9 G/dL Low 12.0-16.0 [facility] Comment on above: Performed By: #### A MEAGAN HARRIS #### [place] [address] Hematocrit (Bld) [Volume fraction] 32.2 % Low 34.0-46.0 [facility] Comment on above: Performed By: #### H H ####[facility] [place] [address] Hgb 11.3 G/dL Low 12.0-16.0 [facility] Comment on above: Performed By: #### H H ####[place] [address] [place] [address] LABORATORYOrdered By: SYSTEM SYSTEM on 01-26-2025 Basophils [...] Comment on above: Interpretive Data: [employer]inesse davis [employer] (CHEST, 1992, 102:312S-25S) [...] Coag (PPP) [Relative time] 1.4 {INR} Normal [facility] Comment on above: Result Comment: [employer] (CHEST, 1992, 102:312S-25S) recommended therapeutic range for oral anticoagulant therapy is: LOW RISK: Prophylaxis of venous thrombosis INR: 2.0-3.0 Treatment of pulmonary embolism 2.0-3.0 Prevention of systemic embolism 2.0-3.0 HIGH RISK: Mechanical prosthetic valves 2.5-3.5 Performed By: #### A MEAGAN HARRIS #### [address] [address] PT Coag (PPP) [Time] 16.5 s High 9.0-14.4 [facility] Comment on above: Result Comment: Effe ctive 01/10/08, Protime results may be affected by some antibiotics (i.e. Ciprofloxacin, Azithromycin, Bactrim) which may potentiate the action of oral anticoagulants, with further increases in Protime/INR. Performed By: #### A MEAGAN HARRIS #### [facility] [address] [place] [address] Platelet (Product)on 025 Platelet Product Ready Platelet Ready for Pickup Normal [facility] Comment on above: Performed By: #### P LTP, RBCP #### [facility] [address] [place] [address] RBC (Product)on 01-26-2025 RBC Product Ready RBC Ready for Pickup Normal [facility] Comment on above: Performed By: #### P LTP, RBCP #### [place] [id number] [place] [address] TEGCKon 01-26-2025 Angle TEG 61.8 degrees Normal 53.0-72.0 [facility] Comment on above: Performed By: #### T EGCK ####[place] [address] K TEG 2.5 minutes Normal 1.0-3.0 [facility] Comment on above: Performed By: #### T EGCK ####[place] [address] LY30 Lysis TEG N/A Normal 0.0-8.0 [facility] Comment on above: Performed By: #### T EGPRIYA ####[place] [address] MA Max Clot TEG 50.0 mm Normal 50.0-70.0 [facility] Comment on above: Performed By: #### T EGPRIYA ####[place] [address] R TEG 4.7 minutes Low 5.0-10.0 [facility] Comment on above: Performed By: #### T EGCK ####[place] [address] .Auto Diffon 01-19-2025 Basophil, Absolute 0.0 10 3/mcL Normal 0.0-0.3 [facility] Comment on above: Performed By: #### C BC, ADIFF, GFR, PRO, CMP, ANEU #### [address] [address] Basophils/100 WBC (Bld) 0.2 % Normal 0.0-2.5 [facility] Comment on above: Performed By: #### C BC, ADIFF, GFR, PRO, CMP, ANEU #### [address] [address] Eosinophil, Absolute 0.2 10 3/mcL Normal 0.0-0.7 [facility] Comment on above: Performed By: #### C BC, ADIFF, GFR, PRO, CMP, ANEU #### [address] [address] Eosinophils/100 WBC (Bld) 6.3 % High 0.0-6.0 [facility] Comment on above: Performed By: #### C BC, ADIFF, GFR, PRO, CMP, ANEU #### [address] [address] Lymphocyte, Absolute 1.1 10 3/mcL Normal 0.9-4.3 [facility] Comment on above: Performed By: #### C BC, ADIFF, GFR, PRO, CMP, ANEU #### [address] [address] Lymphocytes/100 WBC (Bld) 30.5 % Normal 20.0-40.0 [facility] Comment on above: Performed By: #### C BC, ADIFF, GFR, PRO, CMP, ANEU #### [address] [address] Monocyte, Absolute 0.4 10 3/mcL Normal 0.1-1.4 [facility] Comment on above: Performed By: #### C BC, ADIFF, GFR, PRO, CMP, ANEU #### [address] [address] Monocytes/100 WBC (Bld) 11.4 % Normal 2.0-13.0 [facility] Comment on above: Performed By: #### C BC, ADIFF, GFR, PRO, CMP, ANEU #### [address] [address] Neutrophils/100 WBC (Bld) 51.6 % Normal 50.0-75.0 [facility] Comment on above: Performed By: #### C BC, ADIFF, GFR, PRO, CMP, ANEU #### [address] [address] .GFRon 01-19-2025 Estimated Glomerular Filtration Rate 85 ml/min/1.73sqm Normal [facility] Comment on above: Result Comment: Stages of [...] BC, ADIFF, GFR, PRO, CMP, ANEU #### [place] [id number] .NEUABSon 01-19-2025 Neutrophil, Absolute 1.9 10 3/mcL Low 2.3-8.1 [facility] Comment on above: Performed By: #### C BC, ADIFF, GFR, PRO, CMP, ANEU #### [place] [address] CBCon 01-19-2025 Erythrocyte distribution width (RBC) [Ratio] 14.7 % Normal 11.5-15.5 [facility] Comment on above: Performed By: #### C BC, ADIFF, GFR, PRO, CMP, ANEU #### [place] [address] Hematocrit (Bld) [Volume fraction] 37.2 % Normal 34.0-46.0 [facility] Comment on above: Performed By: #### C BC, ADIFF, GFR, PRO, CMP, ANEU #### [place] [address] Hgb 12.7 G/dL Normal 12.0-16.0 [facility] Comment on above: Performed By: #### C BC, ADIFF, GFR, PRO, CMP, ANEU #### [place] [address] MCH (RBC) [Entitic mass] 35.8 pg High 27.0-33.0 [facility] Comment on above: Performed By: #### C BC, ADIFF, GFR, PRO, CMP, ANEU #### [address] [address] MCHC 34.2 G/dL Normal 32.0-36.0 [facility] Comment on above: Performed By: #### C BC, ADIFF, GFR, PRO, CMP, ANEU #### [address] [address] MCV (RBC) [Entitic vol] 104.8 fL High 80.0-99.0 [facility] Comment on above: Performed By: #### C BC, ADIFF, GFR, PRO, CMP, ANEU #### [address] [address] Platelet 50 10 3/mcL Low 150-450 [facility] Comment on above: Performed By: #### C BC, ADIFF, GFR, PRO, CMP, ANEU #### [address] [address] Platelet mean volume (Bld) [Entitic vol] 9.3 fL Normal 6.6-10.5 [facility] Comment on above: Performed By: #### C BC, ADIFF, GFR, PRO, CMP, ANEU #### [address] [address] RBC 3.55 10 6/mcL Low 4.10-5.30 [facility] Comment on above: Performed By: #### C BC, ADIFF, GFR, PRO, CMP, ANEU #### [address] [address] WBC 3.6 10 3/mcL Low 4.5-10.8 [facility] Comment on above: Performed By: #### C BC, ADIFF, GFR, PRO, CMP, ANEU #### [address] [address] CMPon 01-19-2025 Albumin Level 2.9 G/dL Low 3.5-5.0 [facility] Comment on above: Performed By: #### C BC, ADIFF, GFR, PRO, CMP, ANEU #### [address] [address] Albumin/Globulin [Mass ratio] 0.7 {ratio} Low 1.1-2.5 [facility] Comment on above: Performed By: #### C BC, ADIFF, GFR, PRO, CMP, ANEU #### [address] [address] ALP [Catalytic activity/Vol] 248 U/L High 40-135 [facility] Comment on above: Performed By: #### C BC, ADIFF, GFR, PRO, CMP, ANEU #### [address] [address] ALT [Catalytic activity/Vol] 30 U/L Normal 14-59 [facility] Comment on above: Performed By: #### C BC, ADIFF, GFR, PRO, CMP, ANEU #### [address] [address] AST [Catalytic activity/Vol] 57 U/L High 10-40 [facility] Comment on above: Performed By: #### C BC, ADIFF, GFR, PRO, CMP, ANEU #### [address] [address] Bili Total 2.7 mg/dL High 0.2-1.0 [facility] Comment on above: Result Comment: Use of this assay is not recommended for patients undergoing treatment with eltrombopag due to the potential for falsely elevated results. Performed By: #### C BC, ADIFF, GFR, PRO, CMP, ANEU #### [address] [address] BUN/Creatinine Ratio 10 ratio Normal 7-27 [facility] Comment on above: Performed By: #### C BC, ADIFF, GFR, PRO, CMP, ANEU #### [address] [address] Calcium [Mass/Vol] 8.8 mg/dL Normal 8.4-10.2 [facility] Comment on above: Performed By: #### C BC, ADIFF, GFR, PRO, CMP, ANEU #### [address] [address] Chloride [Moles/Vol] 107 mmol/L Normal 98-107 [facility] Comment on above: Performed By: #### C BC, ADIFF, GFR, PRO, CMP, ANEU #### [address] [address] CO2 [Moles/Vol] 25 mmol/L Normal 22-29 [facility] Comment on above: Performed By: #### C BC, ADIFF, GFR, PRO, CMP, ANEU #### [address] [address] Creatinine [Mass/Vol] 0.80 mg/dL Normal 0.51-0.95 [facility] Comment on above: Performed By: #### C BC, ADIFF, GFR, PRO, CMP, ANEU #### [address] [address] Electrolyte Balance 8.0 mEq/L Normal 4.0-15.0 [facility] Comment on above: Performed By: #### C BC, ADIFF, GFR, PRO, CMP, ANEU #### [address] [address] Globulin 4.4 G/dL Normal 2.7-4.4 [facility] Comment on above: Performed By: #### C BC, ADIFF, GFR, PRO, CMP, ANEU #### [address] [address] Glucose [Mass/Vol] 138 mg/dL High 70-105 [facility] Comment on above: Performed By: #### C BC, ADIFF, GFR, PRO, CMP, ANEU #### [address] [address] Potassium [Moles/Vol] 3.6 mmol/L Normal 3.5-5.1 [facility] Comment on above: Performed By: #### C BC, ADIFF, GFR, PRO, CMP, ANEU #### [place] [address] Sodium [Moles/Vol] 140 mmol/L Normal 136-145 [facility] Comment on above: Performed By: #### C BC, ADIFF, GFR, PRO, CMP, ANEU #### [place] [address] [place], [place] [address] Total Protein 7.3 G/dL Normal 6.4-8.2 [facility] Comment on above: Performed By: #### C BC, ADIFF, GFR, PRO, CMP, ANEU #### [place] [address] [place], [place] [address] Urea nitrogen [Mass/Vol] 8 mg/dL Normal 7-18 [facility] Comment on above: Performed By: #### C BC, ADIFF, GFR, PRO, CMP, ANEU #### [place] [address] [place], [place] [address] LABORATORYOrdered By: SYSTEM SYSTEM on 01-19-2025 Albumin [...] Comment on above: Interpretive Data: [employer]se davis [employer] (CHEST, 1992, 102:312S-25S) [...] 01-19-2025 Lipase Level 100 U/L High 16-77 [facility] Comment on above: Performed By: #### C BC, ADIFF, GFR, PRO, CMP, ANEU #### [place] [address] [place], [place] [address] PROon 01-19-2025 PT Coag (PPP) [Time] 16.9 s High 9.0-14.4 [facility] Comment on above: Performed By: #### C BC, ADIFF, GFR, PRO, CMP, ANEU #### [place] [address] [place], [place] [address] PT International Ratio 1.5 Normal [facility] Comment on above: Result Comment: [employer] (CHEST, 1992, 102:312S-25S) recommended therapeutic range for oral anticoagulant therapy is: LOW RISK: Prophylaxis of venous thrombosis INR: 2.0-3.0 Treatment of pulmonary embolism 2.0-3.0 Prevention of systemic embolism 2.0-3.0 HIGH RISK: Mechanical prosthetic valves 2.5-3.5 Performed By: #### C BC, ADIFF, GFR, PRO, CMP, ANEU #### [address] [address] LABORATORYOrdered By: Adry metcalf on 01-17-2025 Glucose [Mass/Vol] 170 mg/dL High 70 - 110 mg/dL [facility] HbA1c (Bld) [Mass fraction] 5.7 % [facility] Performed By Adry Prieto PharmD [facility] Performing Location [facility] LABORATORYOrdered By: SYSTEM SYSTEM on 12-28-2024 INR Coag (PPP) [Relative time] 1.4 {INR} Invalid Interpretation Code [facility] Comment on above: Interpretive Data: T he [employer] (CHEST, 1991, 102:312S-25S) [...] Coag (PPP) [Time] 16.4 s High 9.0-14.4 [facility] Comment on above: Performed By: #### C BC, ADIFF, GFR, PRO, CMP, ANEU #### [address] [address] PT International Ratio 1.4 Normal [facility] Comment on above: Result Comment: [employer] (CHEST, 1991, [id number]) recommended therapeutic range for oral anticoagulant therapy is: LOW RISK: Prophylaxis of venous thrombosis INR: 2.0-3.0 Treatment of pulmonary embolism 2.0-3.0 Prevention of systemic embolism 2.0-3.0 HIGH RISK: Mechanical prosthetic valves 2.5-3.5 Performed By: #### C BC, ADIFF, GFR, PRO, CMP, ANEU #### [address] [id number] [place] ABDOMEN COMPLETEon 2024 [place] ABDOMEN COMPLETE [...] Report By: Liz Navarro Electronically signed By iLz Navarro Dictated Date: 12/28/2024 9:07:50 AM Prelim Date: 12/28/2024 9:13:25 AM Sign Date: 12/28/2024 9:13:25 AM Ordering Provider: ILEANA GILBERT Normal [facility] .Auto Diffon 12-21-2024 Basophil, Absolute 0.0 10 3/mcL Normal 0.0-0.3 [facility] Comment on above: Performed By: #### C BC, ADIFF, GFR, PRO, CMP, ANEU #### [facility] [address], [place] [address] Basophils/100 WBC (Bld) 0.5 % Normal 0.0-2.5 [facility] Comment on above: Performed By: #### C BC, ADIFF, GFR, PRO, CMP, ANEU #### [facility] [address] [place], [place] [address] Eosinophil, Absolute 0.3 10 3/mcL Normal 0.0-0.7 [facility] Comment on above: Performed By: #### C BC, ADIFF, GFR, PRO, CMP, ANEU #### [address] [address] Eosinophils/100 WBC (Bld) 7.3 % High 0.0-6.0 [facility] Comment on above: Performed By: #### C BC, ADIFF, GFR, PRO, CMP, ANEU #### [address] [address] Lymphocyte, Absolute 1.1 10 3/mcL Normal 0.9-4.3 [facility] Comment on above: Performed By: #### C BC, ADIFF, GFR, PRO, CMP, ANEU #### [address] [address] Lymphocytes/100 WBC (Bld) 29.0 % Normal 20.0-40.0 [facility] Comment on above: Performed By: #### C BC, ADIFF, GFR, PRO, CMP, ANEU #### [address] [address] Monocyte, Absolute 0.4 10 3/mcL Normal 0.1-1.4 [facility] Comment on above: Performed By: #### C BC, ADIFF, GFR, PRO, CMP, ANEU #### [address] [address] Monocytes/100 WBC (Bld) 11.2 % Normal 2.0-13.0 [facility] Comment on above: Performed By: #### C BC, ADIFF, GFR, PRO, CMP, ANEU #### [address] [address] Neutrophils/100 WBC (Bld) 52.0 % Normal 50.0-75.0 [facility] Comment on above: Performed By: #### C BC, ADIFF, GFR, PRO, CMP, ANEU #### [address] [address] .GFRon 12-21-2024 Estimated Glomerular Filtration Rate 82 ml/min/1.73sqm Normal [facility] Comment on above: Result Comment: Stages of [...] BC, ADIFF, GFR, PRO, CMP, ANEU #### [address] [address] .NEUABSon 12-21-2024 Neutrophil, Absolute 1.9 10 3/mcL Low 2.3-8.1 [facility] Comment on above: Performed By: #### C BC, ADIFF, GFR, PRO, CMP, ANEU #### [address] [address] CBCon 12-21-2024 Erythrocyte distribution width (RBC) [Ratio] 15.3 % Normal 11.5-15.5 [facility] Comment on above: Performed By: #### C BC, ADIFF, GFR, PRO, CMP, ANEU #### [address] [address] Hematocrit (Bld) [Volume fraction] 37.3 % Normal 34.0-46.0 [facility] Comment on above: Performed By: #### C BC, ADIFF, GFR, PRO, CMP, ANEU #### [address] [address] Hgb 12.8 G/dL Normal 12.0-16.0 [facility] Comment on above: Performed By: #### C BC, ADIFF, GFR, PRO, CMP, ANEU #### [address] [address] MCH (RBC) [Entitic mass] 36.0 pg High 27.0-33.0 [facility] Comment on above: Performed By: #### C BC, ADIFF, GFR, PRO, CMP, ANEU #### [address] [address] MCHC 34.2 G/dL Normal 32.0-36.0 [facility] Comment on above: Performed By: #### C BC, ADIFF, GFR, PRO, CMP, ANEU #### [address] [address] MCV (RBC) [Entitic vol] 105.1 fL High 80.0-99.0 [facility] Comment on above: Performed By: #### C BC, ADIFF, GFR, PRO, CMP, ANEU #### [address] [address] Platelet 55 10 3/mcL Low 150-450 [facility] Comment on above: Performed By: #### C BC, ADIFF, GFR, PRO, CMP, ANEU #### [place] [address] Platelet mean volume (Bld) [Entitic vol] 9.2 fL Normal 6.6-10.5 [facility] Comment on above: Performed By: #### C BC, ADIFF, GFR, PRO, CMP, ANEU #### [address] [address] RBC 3.55 10 6/mcL Low 4.10-5.30 [facility] Comment on above: Performed By: #### C BC, ADIFF, GFR, PRO, CMP, ANEU #### [address] [address] WBC 3.7 10 3/mcL Low 4.5-10.8 [facility] Comment on above: Performed By: #### C BC, ADIFF, GFR, PRO, CMP, ANEU #### [place] [id number] CMPon 12-21-2024 Albumin Level 3.0 G/dL Low 3.5-5.0 [facility] Comment on above: Performed By: #### C BC, ADIFF, GFR, PRO, CMP, ANEU #### [place] [address] Albumin/Globulin [Mass ratio] 0.6 {ratio} Low 1.1-2.5 [facility] Comment on above: Performed By: #### C BC, ADIFF, GFR, PRO, CMP, ANEU #### [place] [address] ALP [Catalytic activity/Vol] 202 U/L High 40-135 [facility] Comment on above: Performed By: #### C BC, ADIFF, GFR, PRO, CMP, ANEU #### [place] [address] ALT [Catalytic activity/Vol] 37 U/L Normal 14-59 [facility] Comment on above: Performed By: #### C BC, ADIFF, GFR, PRO, CMP, ANEU #### [place] [address] AST [Catalytic activity/Vol] 67 U/L High 10-40 [facility] Comment on above: Performed By: #### C BC, ADIFF, GFR, PRO, CMP, ANEU #### [place] [address] Bili Total 3.7 mg/dL High 0.2-1.0 [facility] Comment on above: Result Comment: Use of this assay is not recommended for patients undergoing treatment with eltrombopag due to the potential for falsely elevated results. Performed By: #### C BC, ADIFF, GFR, PRO, CMP, ANEU #### [place] [address] BUN/Creatinine Ratio 10 ratio Normal 7-27 [facility] Comment on above: Performed By: #### C BC, ADIFF, GFR, PRO, CMP, ANEU #### [place] [address] Calcium [Mass/Vol] 8.9 mg/dL Normal 8.4-10.2 [facility] Comment on above: Performed By: #### C BC, ADIFF, GFR, PRO, CMP, ANEU #### [place] [address] Chloride [Moles/Vol] 107 mmol/L Normal 98-107 [facility] Comment on above: Performed By: #### C BC, ADIFF, GFR, PRO, CMP, ANEU #### [place] [address] CO2 [Moles/Vol] 28 mmol/L Normal 22-29 [facility] Comment on above: Performed By: #### C BC, ADIFF, GFR, PRO, CMP, ANEU #### [place] [address] Creatinine [Mass/Vol] 0.82 mg/dL Normal 0.51-0.95 [facility] Comment on above: Performed By: #### C BC, ADIFF, GFR, PRO, CMP, ANEU #### [place] [address] Electrolyte Balance 7.0 mEq/L Normal 4.0-15.0 [facility] Comment on above: Performed By: #### C BC, ADIFF, GFR, PRO, CMP, ANEU #### [place] [address] Globulin 4.8 G/dL High 2.7-4.4 [facility] Comment on above: Performed By: #### C BC, ADIFF, GFR, PRO, CMP, ANEU #### [place] [address] Glucose [Mass/Vol] 105 mg/dL Normal 70-105 [facility] Comment on above: Performed By: #### C BC, ADIFF, GFR, PRO, CMP, ANEU #### [place] [address] Potassium [Moles/Vol] 4.0 mmol/L Normal 3.5-5.1 [facility] Comment on above: Performed By: #### C BC, ADIFF, GFR, PRO, CMP, ANEU #### [address] [address] Sodium [Moles/Vol] 142 mmol/L Normal 136-145 [facility] Comment on above: Performed By: #### C BC, ADIFF, GFR, PRO, CMP, ANEU #### [address] [address] Total Protein 7.8 G/dL Normal 6.4-8.2 [facility] Comment on above: Performed By: #### C BC, ADIFF, GFR, PRO, CMP, ANEU #### [address] [address] Urea nitrogen [Mass/Vol] 8 mg/dL Normal 7-18 [facility] Comment on above: Performed By: #### C BC, ADIFF, GFR, PRO, CMP, ANEU #### [address] [address] HFPon 12-21-2024 Bili Indirect 2.7 mg/dL Normal [facility] Comment on above: Performed By: #### C BC, ADIFF, GFR, PRO, CMP, ANEU #### [address] [address] Bili Direct 1.0 mg/dL High 0.0-0.2 [facility] Comment on above: Result Comment: Use of this assay is not recommended for patients undergoing treatment with eltrombopag due to the potential for falsely elevated results. Performed By: #### C BC, ADIFF, GFR, PRO, CMP, ANEU #### [address] [address] LABORATORYOrdered By: SYSTEM SYSTEM on 12-21-2024 Basophils [...] and/or EMG Patienton NCS and/or EMG Patient [facility] Pulmonary Services/Neurology [address] [place] [address] MR#: [id number] Acct: [id number] Name: SONDRA DUVAL Rep #: [id number] : 1965 59 From: Porter Donovan MD Referring Dr: Zeinab Roman Status: REG CLI Location: [facility] Date: 11/08/24 Sex: F C [...] Multi Select Codes Neurology Neurology Interp Codes: 68997-98 Musc test done w/n test comp (interp) and 72109-90 Nrv cndj tst 5-6 studies (inter) 11/08/245 Date Porter Donovan MD CC: ELEMENTARY TUTOR-C Rosario Walters; AKBAR Tubbs; Dr. Porter Donovan MD Date Dictated: 11/08/241323 Date Transcribed: 11/08/241323 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: AA Signed [facility] XR ANKLE MINIMUM 3 VIEWS [facility] 09-14-2024 XR ANKLE MINIMUM 3 VIEWS [...] 09/14/2024 11:35:41 AM Ordering Provider: ROSARIO WALTERS [facility] XR FOOT MINIMUM 3 VIEWS [facility] 09-14-2024 XR FOOT MINIMUM 3 VIEWS RIGHT [...] 09/14/2024 2:47:04 PM Ordering Provider: ROSARIO SELENA [facility] LABORATORYOrdered By: Adry metcalf on 09-13-2024 Glucose [Mass/Vol] 132 mg/dL High 70 - 110 mg/dL [facility] HbA1c (Bld) [Mass fraction] 5.8 % [facility] Lab Performed By Adry Prieto PharmD [facility] Lab Performing Location [facility] US ABDOMEN LIMITEDon 025 US ABDOMEN [...] 08/25/2024 8:45:01 AM Ordering Provider: SOY Funes [facility] Basic metabolic 2000 panelon 08-16-2024 Anion gap [Moles/Vol] 9 mmol/L Normal 8-15 [facility] Comment on above: Order Comment: Speci men Type: BLOOD SPECIMEN Ordering Facility: [facility] Address: [address] [place] [address] Performed By: #### 2 4321-2 #### [facility] CLIA [id number] [address] [place] [address] [place] Calcium [Mass/Vol] 9.1 mg/dL Normal 8.5-10.2 [facility] Comment on above: Order Comment: Speci men Type: BLOOD SPECIMEN Ordering Facility: [facility] Address: [address] [place] [address] Performed By: #### 2 4321-2 #### [facility] CLIA [id number] [address] [place] [address] [place] Chloride [Moles/Vol] 105 mmol/L Normal 98-107 [facility] Comment on above: Order Comment: Speci men Type: BLOOD SPECIMEN Ordering Facility: [facility] Address: [address] [place] [address] Performed By: #### 2 4321-2 #### [facility] CLIA [id number] [address] [place] [address] [place] CO2 [Moles/Vol] 25 mmol/L Normal 22-30 [facility] Comment on above: Order Comment: Speci men Type: BLOOD SPECIMEN Ordering Facility: [facility] Address: [address] [place] [address] Performed By: #### 2 4321-2 #### [facility] CLIA [id number] [address] [place] [address] [place] Creatinine [Mass/Vol] 0.67 mg/dL Normal 0.58-0.96 [facility] Comment on above: Order Comment: Speci men Type: BLOOD SPECIMEN Ordering Facility: [facility] Address: [address] [place] [address] Performed By: #### 2 4321-2 #### [facility] CLIA [id number] [address] [place] [address] [place] Creatinine and Glomerular filtration rate.predicted panel (S/P/Bld) 101 mL/min/1.73m??? Normal >=60 [facility] Comment on above: Order Comment: Speci men Type: BLOOD SPECIMEN Ordering Facility: [facility] Address: [address] [place] [address] Result Comment: Myla mated Glomerular Filtration Rate [...] GFR. Performed By: #### 2 4321-2 #### [id number] [address] [place] [address] [place] Glucose [Mass/Vol] 168 mg/dL High 74-99 [facility] Comment on above: Order Comment: Speci clint Type: BLOOD SPECIMEN Ordering Facility: [facility] Address: [address] [place] [address] Result Comment: The [place] Diabetes Association (ADA) provides guidance for cutoff [...] Standards of Medical Care in Diabetes 2016, [place] [employer]. Diabetes Care. 2016.39(Suppl 1). Performed By: #### 2 4321-2 #### [facility] CLIA [id number] [address] [place] [address] [place] Potassium [Moles/Vol] 3.9 mmol/L Normal 3.7-5.1 [facility] Comment on above: Order Comment: Speci men Type: BLOOD SPECIMEN Ordering Facility: [facility] Address: [address] [place] [address] Performed By: #### 2 4321-2 #### [facility] CLIA [id number] [address] [place] [address] [place] Sodium [Moles/Vol] 139 mmol/L Normal 136-144 [facility] Comment on above: Order Comment: Speci men Type: BLOOD SPECIMEN Ordering Facility: [facility] Address: [address] [place] [address] Performed By: #### 2 4321-2 #### [facility] CLIA [id number] [address] [place] [address] [place] Urea nitrogen [Mass/Vol] 6 mg/dL Low 7-21 [facility] Comment on above: Order Comment: Speci men Type: BLOOD SPECIMEN Ordering Facility: [facility] Address: [address] [place] [address] Performed By: #### 2 4321-2 #### [facility] CLIA [id number] [address] [place] [address] [place] ABD/PEL W IVCONon 025 CT ABD/PEL W IVCON * * *Final Report* * * DATE OF EXAM: Aug 16 2024 3:24PM [facility] 0530 - CT ABD/PEL W [...] nature. Attention on follow-up imaging is recommended. 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: PSCColin Transcribe Date/Time: Aug 20 2024 9:42A Dictated by : ALEXANDRO PALENCIA MD This examination was interpreted and the report reviewed and electronically signed by: ALEXANDRO PALENCIA MD on Aug 20 2024 9:57AM EST [id number] Normal [facility] .Auto Diffon 07-22-2024 Basophil, Absolute 0.0 10 3/mcL Normal 0.0-0.2 [facility] Comment on above: Performed By: #### C BC, ADIFF, GFR, PRO, CMP, ANEU #### [address] [address] Basophils/100 WBC (Bld) 0.6 % Normal 0.0-2.5 [facility] Comment on above: Performed By: #### C BC, ADIFF, GFR, PRO, CMP, ANEU #### [address] [address] Eosinophil, Absolute 0.2 10 3/mcL Normal 0.0-0.7 [facility] Comment on above: Performed By: #### C BC, ADIFF, GFR, PRO, CMP, ANEU #### [address] [address] Eosinophils/100 WBC (Bld) 4.5 % Normal 0.0-7.0 [facility] Comment on above: Performed By: #### C BC, ADIFF, GFR, PRO, CMP, ANEU #### [address] [address] Lymphocyte, Absolute 1.0 10 3/mcL Normal 0.9-4.3 [facility] Comment on above: Performed By: #### C BC, ADIFF, GFR, PRO, CMP, ANEU #### [address] [address] Lymphocytes/100 WBC (Bld) 24.1 % Normal 20.0-40.0 [facility] Comment on above: Performed By: #### C BC, ADIFF, GFR, PRO, CMP, ANEU #### [address] [address] Monocyte, Absolute 0.4 10 3/mcL Normal 0.1-1.4 [facility] Comment on above: Performed By: #### C BC, ADIFF, GFR, PRO, CMP, ANEU #### [address] [address] Monocytes/100 WBC (Bld) 10.2 % Normal 2.0-13.0 [facility] Comment on above: Performed By: #### C BC, ADIFF, GFR, PRO, CMP, ANEU #### [place] [address] [place], [place] [address] Neutrophils/100 WBC (Bld) 60.6 % Normal 50.0-75.0 [facility] Comment on above: Performed By: #### C BC, ADIFF, GFR, PRO, CMP, ANEU #### [address] [address] .GFRon 07-22-2024 GFR Non- 81 ml/min/1.73sqm Normal [facility] Comment on above: Result Comment: GFR Population [...] BC, ADIFF, GFR, PRO, CMP, ANEU #### [place] [address] [place], [place] [address] GFR 98 ml/min/1.73sqm Normal [facility] Comment on above: Result Comment: GFR Population [...] GFR, PRO, CMP, ANEU #### [place] [address] .NEUABSon 07-22-2024 Neutrophil, Absolute 2.4 10 3/mcL Normal 2.3-8.1 [facility] Comment on above: Performed By: #### C BC, ADIFF, GFR, PRO, CMP, ANEU #### [place] [address] CBCon 07-22-2024 Erythrocyte distribution width (RBC) [Ratio] 14.7 % Normal 11.5-15.5 [facility] Comment on above: Performed By: #### C BC, ADIFF, GFR, PRO, CMP, ANEU #### [place] [address] Hematocrit (Bld) [Volume fraction] 37.6 % Normal 34.0-46.0 [facility] Comment on above: Performed By: #### C BC, ADIFF, GFR, PRO, CMP, ANEU #### [place] [address] Hgb 13.0 G/dL Normal 12.0-16.0 [facility] Comment on above: Performed By: #### C BC, ADIFF, GFR, PRO, CMP, ANEU #### [place] [address] MCH (RBC) [Entitic mass] 35.3 pg High 27.0-33.0 [facility] Comment on above: Performed By: #### C BC, ADIFF, GFR, PRO, CMP, ANEU #### [place] [address] MCHC 34.7 G/dL Normal 32.0-36.0 [facility] Comment on above: Performed By: #### C BC, ADIFF, GFR, PRO, CMP, ANEU #### [place] [address] MCV (RBC) [Entitic vol] 102.0 fL High 80.0-99.0 [facility] Comment on above: Performed By: #### C BC, ADIFF, GFR, PRO, CMP, ANEU #### [address] [address] Platelet 61 10 3/mcL Low 150-450 [facility] Comment on above: Performed By: #### C BC, ADIFF, GFR, PRO, CMP, ANEU #### [address] [address] Platelet mean volume (Bld) [Entitic vol] 9.1 fL Normal 6.6-10.5 [facility] Comment on above: Performed By: #### C BC, ADIFF, GFR, PRO, CMP, ANEU #### [address] [address] RBC 3.69 10 6/mcL Low 4.10-5.30 [facility] Comment on above: Performed By: #### C BC, ADIFF, GFR, PRO, CMP, ANEU #### [address] [address] WBC 4.0 10 3/mcL Low 4.5-10.8 [facility] Comment on above: Performed By: #### C BC, ADIFF, GFR, PRO, CMP, ANEU #### [address] [address] CMPon 07-22-2024 Albumin Level 3.4 G/dL Low 3.5-5.0 [facility] Comment on above: Performed By: #### A KESHA, TSH, CMP, GFR, ADIFF, VIDH, FT4, LIPID, CBC #### [address] [address] Albumin/Globulin [Mass ratio] 0.7 {ratio} Low 1.1-2.5 [facility] Comment on above: Performed By: #### A KESHA, TSH, CMP, GFR, ADIFF, VIDH, FT4, LIPID, CBC #### [address] [address] ALP [Catalytic activity/Vol] 232 U/L High 40-135 [facility] Comment on above: Performed By: #### A KESHA, TSH, CMP, GFR, ADIFF, VIDH, FT4, LIPID, CBC #### [address] [address] ALT [Catalytic activity/Vol] 33 U/L Normal 14-59 [facility] Comment on above: Performed By: #### A KESHA, TSH, CMP, GFR, ADIFF, VIDH, FT4, LIPID, CBC #### [address] [address] AST [Catalytic activity/Vol] 68 U/L High 10-40 [facility] Comment on above: Performed By: #### A KESHA, TSH, CMP, GFR, ADIFF, VIDH, FT4, LIPID, CBC #### [address] [address] Bili Total 2.5 mg/dL High 0.2-1.0 [facility] Comment on above: Result Comment: Use of this assay is not recommended for patients undergoing treatment with eltrombopag due to the potential for falsely elevated results. Performed By: #### A KESHA, TSH, CMP, GFR, ADIFF, VIDH, FT4, LIPID, CBC #### [address] [address] BUN/Creatinine Ratio 8 ratio Normal 7-27 [facility] Comment on above: Performed By: #### A KESHA, TSH, CMP, GFR, ADIFF, VIDH, FT4, LIPID, CBC #### [address] [address] Calcium [Mass/Vol] 9.3 mg/dL Normal 8.4-10.2 [facility] Comment on above: Performed By: #### A KESHA, TSH, CMP, GFR, ADIFF, VIDH, FT4, LIPID, CBC #### [address] [address] Chloride [Moles/Vol] 107 mmol/L Normal 98-107 [facility] Comment on above: Performed By: #### A KESHA, TSH, CMP, GFR, ADIFF, VIDH, FT4, LIPID, CBC #### [address] [address] CO2 [Moles/Vol] 26 mmol/L Normal 22-29 [facility] Comment on above: Performed By: #### A KESHA, TSH, CMP, GFR, ADIFF, VIDH, FT4, LIPID, CBC #### [place] [address] Creatinine [Mass/Vol] 0.74 mg/dL Normal 0.55-1.02 [facility] Comment on above: Result Comment: Test ing performed on Siemens Dimension EXL analyzer using a modified kinetic Tasneem technique. Performed By: #### A KESHA, TSH, CMP, GFR, ADIFF, VIDH, FT4, LIPID, CBC #### [address] [address] Electrolyte Balance 8.0 mEq/L Normal 4.0-15.0 [facility] Comment on above: Performed By: #### A KESHA, TSH, CMP, GFR, ADIFF, VIDH, FT4, LIPID, CBC #### [place] [address] Globulin 4.6 G/dL Normal [facility] Comment on above: Performed By: #### A KESHA, TSH, CMP, GFR, ADIFF, VIDH, FT4, LIPID, CBC #### [address] [address] Glucose [Mass/Vol] 134 mg/dL High 70-105 [facility] Comment on above: Performed By: #### A KESHA, TSH, CMP, GFR, ADIFF, VIDH, FT4, LIPID, CBC #### [place] [address] Potassium [Moles/Vol] 4.1 mmol/L Normal 3.5-5.1 [facility] Comment on above: Performed By: #### A KESHA, TSH, CMP, GFR, ADIFF, VIDH, FT4, LIPID, CBC #### [address] [address] Sodium [Moles/Vol] 141 mmol/L Normal 136-145 [facility] Comment on above: Performed By: #### A KESHA, TSH, CMP, GFR, ADIFF, VIDH, FT4, LIPID, CBC #### [address] [address] Total Protein 8.0 G/dL Normal 6.4-8.2 [facility] Comment on above: Performed By: #### A KESHA, TSH, CMP, GFR, ADIFF, VIDH, FT4, LIPID, CBC #### [address] [address] Urea nitrogen [Mass/Vol] 6 mg/dL Low 7-18 [facility] Comment on above: Performed By: #### A KESHA, TSH, CMP, GFR, ADIFF, VIDH, FT4, LIPID, CBC #### [address] [address] FT4on 07-22-2024 Free T4 [Mass/Vol] 1.23 ng/dL Normal 0.76-1.46 [facility] Comment on above: Performed By: #### A KESHA, TSH, CMP, GFR, ADIFF, VIDH, FT4, LIPID, CBC #### [address] [address] LABORATORYOrdered By: SYSTEM SYSTEM on 07-22-2024 25-hydroxyvitamin [...] 10^3/mcL AO Workflow SS LABORATORYOrdered By: Pat iDallo on 07-22-2024 Cholesterol [Mass/Vol] 185 mg/dL Normal [...] 07-22-2024 Cholesterol [Mass/Vol] 185 mg/dL Normal 0-200 [facility] Comment on above: Result Comment: Chol esterol Reference Interval: Less than 200 Desirable 200-239 Borderline high risk 240 and above High risk Performed By: #### C BC, ADIFF, GFR, PRO, CMP, ANEU #### [address] [address] Cholesterol in HDL [Mass/Vol] 62 mg/dL High 40-60 [facility] Comment on above: Performed By: #### C BC, ADIFF, GFR, PRO, CMP, ANEU #### [address] [address] Cholesterol in LDL [Mass/Vol] 105 mg/dL Normal 0-130 [facility] Comment on above: Performed By: #### C BC, ADIFF, GFR, PRO, CMP, ANEU #### [address] [address] Triglyceride [Mass/Vol] 92 mg/dL Normal 0-150 [facility] Comment on above: Result Comment: Trig lyceride Reference Interval: Less than 150 Normal 150-199 Borderline high risk 200-499 High risk 500 or higher Very high risk Performed By: #### C BC, ADIFF, GFR, PRO, CMP, ANEU #### [address] [address] TSHon 07-22-2024 TSH Qn 0.96 m[IU]/L Normal 0.36-3.74 [facility] Comment on above: Performed By: #### A KESHA, TSH, CMP, GFR, ADIFF, VIDH, FT4, LIPID, CBC #### [address] [address] VIDHon 07-22-2024 Vit. D 25-Hydroxy 30.0 ng/mL Normal [facility] Comment on above: Result Comment: Inte rpretive Values Based on Total 25(OH) Vitamin D: Deficient <20 ng/mL Insufficient 20 - <30 ng/mL Sufficient 30-100 ng/mL Performed By: #### A KESHA, TSH, CMP, GFR, ADIFF, VIDH, FT4, LIPID, CBC #### [place] [address] LABORATORYOrdered By: Adry metcalf on 06-15-2024 Glucose [Mass/Vol] 150 mg/dL High 70 - 110 mg/dL [facility] HbA1c (Bld) [Mass fraction] 5.6 % [facility] Lab Performed By Adry Prieto PharmD [facility] Lab Performing Location [facility] .SMUSTon 05-23-2024 Smooth Muscle Ab Titer Pos 20 Normal [facility] Comment on above: Result Comment: An A nti-smooth muscle antibody (ASMA) of 1:160 or greater is seen in approximately 80% of patients with HBSAG-neg Chronic Active Hepatitis (CAH). Low ASMA titers may be present in viral infections, malignancies and normal individuals. Performed By: #### C BC, ADIFF, GFR, PRO, CMP, ANEU #### [place] [address] AATon 05-23-2024 [id number] 197 mg/dL High 101-187 [facility] Comment on above: Result Comment: Perf ormed At: [facility] [address] [id number] Bakari Carl PhD Ph:[phone] Performed By: #### C BC, ADIFF, GFR, PRO, CMP, ANEU #### [place] [address] AHAVGon 05-23-2024 Hepatitis A Antibody IgG Negative Normal [facility] Comment on above: Result Comment: No s erological evidence of immunity to Hepatitis A Virus. Performed By: [facility] [address] [place] [address] Visual Designer: Allyson King IIIIA#: [id number] Performed By: #### C BC, ADIFF, GFR, PRO, CMP, ANEU #### [address] [address] HBCABon 05-23-2024 Hep B Core Total Ab Negative Normal Negative [facility] Comment on above: Result Comment: Perf ormed At: [facility] [address] [id number] Bakari Carl PhD Ph:[phone] Performed By: #### C BC, ADIFF, GFR, PRO, CMP, ANEU #### [address] [address] SMUSCon 05-23-2024 Smooth Muscle Ab See Titer Normal Neg 20 [facility] Comment on above: Result Comment: Smoo th Muscle Ab Screen and Titer methodology is an immunofluorescent technique utilizing MSK Substrate. Performed By: #### C BC, ADIFF, GFR, PRO, CMP, ANEU #### [address] [address] AFPSon 05-22-2024 AFP, Tumor Marker 2.2 ng/mL Normal 0.0-8.5 [facility] Comment on above: Result Comment: Test ing performed on the [employer] analyzer using direct chemiluminesent technology. Patient results determined by assays using different manufacturers for methods may not be comparable. Performed By: #### C BC, ADIFF, GFR, PRO, CMP, ANEU #### [address] [address] Cytology, Body Fluid / CSFon 05-22-2024 CYTOLOGY,BF/CSF SEE PATHOLOGY REPORT Normal [facility] Comment on above: Order Comment: URINE Result Comment: Spec imen submitted to Anatomical Pathology Department for testing. Performed By: #### L 350.1000 #### [facility] [address] [place], [place], [address] HBSABon 05-22-2024 Hep B Surf Ab <3.1 Low >=10.0 [facility] Comment on above: Result Comment: 0 to [...] #### C BC, ADIFF, GFR, PRO, CMP, [facility] #### [place] [address] LABORATORYOrdered By: SYSTEM SYSTEM on 05-22-2024 AFP [Mass/Vol] 2.2 ng/mL Normal 0.0 - 8.5 ng/mL ADM Comment on above: Interpretive Data: T esting performed on the [employer] analyzer using direct chemiluminesent technology. Patient results [...] Account Attending Physician SONDRA DUVAL 58/F LABSPEC [id number] Traci Mcgill Specimen: [id number] Received: 05/22/24 Status: TABATHA Mathis Num: [id number] Spec Type: CYSPIN FL Subm Dr: Traci [...] for cytology preparation. Mr 05/23/2024 TC:5 CPT: 51789 Signed (signature on file) Dr. Benedict Friend DO 05/23/24 1415 Normal [facility] Comment on above: Performed By: #### P PAPS #### [facility] [address] [place], [address] No Panel Informationon 04-06 Culture Urine 10,000 - 50,000 cfu/ ml Mixed growth consistent with normal urogenital patrice. [facility] LABORATORYOrdered By: SYSTEM SYSTEM on 03-31-2024 [...] DATE OF EXAM: Mar 08 2024 9:10AM [facility] 0726 - MRI LIVER WO IVCON / [...] imaging of patients with chronic liver disease. 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: OSCAR Transcribe Date/Time: Mar 10 2024 10:47A Dictated by : LIAM PIZANO MD This examination was interpreted and the report reviewed and electronically signed by: ERLINDA DLE VALLE MD on Mar 10 2024 1:34PM EST [id number] Normal [facility] ANAon 12-03-2023 Nuclear Ab IF (S) [Titer] 40 {titer} Normal Neg 40 [facility] ([place]) Comment on above: Result Comment: ALEX Screen and Titer methodology is an immunofluorescent technique utilizing Hep2 Substrate. Performed By: #### C BC, FES, ANEU, CMP, GFR, FERR, ADIFF #### [place] [address] MITOon 12-03-2023 Mitochondrial Ab Neg 20 Normal Neg 20 [facility] ([place]) Comment on above: Result Comment: Juan M chondrial Ab Screen and Titer methodology is an immunofluorescent technique utilizing MSK Substrate. Performed By: #### C BC, FES, ANEU, CMP, GFR, FERR, ADIFF #### [address] [address] .Auto Diffon 12-02-2023 Basophil, Absolute 0.0 10 3/mcL Normal 0.0-0.2 [facility] ([place]) Comment on above: Performed By: #### C BC, FES, ANEU, CMP, GFR, FERR, ADIFF #### [place] [id number] Basophils/100 WBC (Bld) 0.6 % Normal 0.0-2.5 [facility] ([place]) Comment on above: Performed By: #### C BC, FES, ANEU, CMP, GFR, FERR, ADIFF #### [address] [address] Eosinophil, Absolute 0.2 10 3/mcL Normal 0.0-0.4 [facility] ([place]) Comment on above: Performed By: #### C BC, FES, ANEU, CMP, GFR, FERR, ADIFF #### [address] [address] Eosinophils/100 WBC (Bld) 5.1 % Normal 0.0-7.0 [facility] ([place]) Comment on above: Performed By: #### C BC, FES, ANEU, CMP, GFR, FERR, ADIFF #### [address] [address] Lymphocyte, Absolute 1.1 10 3/mcL Normal 0.8-3.9 [facility] ([place]) Comment on above: Performed By: #### C BC, FES, ANEU, CMP, GFR, FERR, ADIFF #### [address] [address] Lymphocytes/100 WBC (Bld) 24.1 % Normal 10.0-50.0 [facility] ([place]) Comment on above: Performed By: #### C BC, FES, ANEU, CMP, GFR, FERR, ADIFF #### [address] [address] Monocyte, Absolute 0.4 10 3/mcL Normal 0.2-1.0 [facility] ([place]) Comment on above: Performed By: #### C BC, FES, ANEU, CMP, GFR, FERR, ADIFF #### [address] [address] Monocytes/100 WBC (Bld) 8.4 % Normal 1.7-13.0 [facility] ([place]) Comment on above: Performed By: #### C BC, FES, ANEU, CMP, GFR, FERR, ADIFF #### [address] [address] Neutrophils/100 WBC (Bld) 61.8 % Normal 37.0-80.0 [facility] ([place]) Comment on above: Performed By: #### C BC, FES, ANEU, CMP, GFR, FERR, ADIFF #### [address] [address] .GFRon 12-02-2023 GFR 106 ml/min/1.73sqm Normal [facility] ([place]) Comment on above: Result Comment: GFR Population [...] FES, ANEU, CMP, GFR, FERR, ADIFF #### [address] [address] GFR Non- 87 ml/min/1.73sqm Normal [facility] ([place]) Comment on above: Result Comment: GFR Population [...] CMP, GFR, FERR, ADIFF #### [place] [address] .NEUABSon 12-02-2023 Neutrophil, Absolute 2.7 10 3/mcL Low 2.9-6.2 [facility] ([place]) Comment on above: Performed By: #### C BC, FES, ANEU, CMP, GFR, FERR, ADIFF #### [place] [address] CBCon 12-02-2023 Erythrocyte distribution width (RBC) [Ratio] 14.7 % High 11.5-14.5 [facility] ([place]) Comment on above: Performed By: #### C BC, FES, ANEU, CMP, GFR, FERR, ADIFF #### [place] [address] Hematocrit (Bld) [Volume fraction] 37.3 % Normal 37.0-47.0 [facility] ([place]) Comment on above: Performed By: #### C BC, FES, ANEU, CMP, GFR, FERR, ADIFF #### [place] [address] Hgb 12.9 G/dL Normal 12.0-16.0 [facility] ([place]) Comment on above: Performed By: #### C BC, FES, ANEU, CMP, GFR, FERR, ADIFF #### [place] [address] MCH (RBC) [Entitic mass] 34.8 pg High 27.0-31.2 [facility] ([place]) Comment on above: Performed By: #### C BC, FES, ANEU, CMP, GFR, FERR, ADIFF #### [place] [address] MCHC 34.5 G/dL Normal 33.0-37.0 [facility] ([place]) Comment on above: Performed By: #### C BC, FES, ANEU, CMP, GFR, FERR, ADIFF #### [address] [place] [address] MCV (RBC) [Entitic vol] 100.7 fL High 80.0-94.0 [facility] ([place]) Comment on above: Performed By: #### C BC, FES, ANEU, CMP, GFR, FERR, ADIFF #### [address] [address] Platelet 84 10 3/mcL Low 130-400 [facility] ([place]) Comment on above: Performed By: #### C BC, FES, ANEU, CMP, GFR, FERR, ADIFF #### [address] [address] Platelet mean volume (Bld) [Entitic vol] 9.2 fL Normal 7.4-10.4 [facility] ([place]) Comment on above: Performed By: #### C BC, FES, ANEU, CMP, GFR, FERR, ADIFF #### [address] [address] RBC 3.70 10 6/mcL Low 4.20-5.40 [facility] ([place]) Comment on above: Performed By: #### C BC, FES, ANEU, CMP, GFR, FERR, ADIFF #### [address] [address] WBC 4.4 10 3/mcL Low 4.6-10.8 [facility] ([place]) Comment on above: Performed By: #### C BC, FES, ANEU, CMP, GFR, FERR, ADIFF #### [address] [address] CMPon 12-02-2023 Albumin Level 3.5 G/dL Normal 3.5-5.0 [facility] ([place] Comment on above: Performed By: #### C BC, FES, ANEU, CMP, GFR, FERR, ADIFF #### [address] [address] Albumin/Globulin [Mass ratio] 0.8 {ratio} Low 1.1-2.5 [facility] ([place]) Comment on above: Performed By: #### C BC, FES, ANEU, CMP, GFR, FERR, ADIFF #### [address] [address] ALP [Catalytic activity/Vol] 210 U/L High 40-135 [facility] ([place]) Comment on above: Performed By: #### C BC, FES, ANEU, CMP, GFR, FERR, ADIFF #### [address] [address] ALT [Catalytic activity/Vol] 35 U/L Normal 14-59 [facility] ([place]) Comment on above: Performed By: #### C BC, FES, ANEU, CMP, GFR, FERR, ADIFF #### [address] [address] AST [Catalytic activity/Vol] 61 U/L High 10-40 [facility] ([place]) Comment on above: Performed By: #### C BC, FES, ANEU, CMP, GFR, FERR, ADIFF #### [address] [address] Bili Total 2.0 mg/dL High 0.2-1.0 [facility] ([place]) Comment on above: Result Comment: Use of this assay is not recommended for patients undergoing treatment with eltrombopag due to the potential for falsely elevated results. Performed By: #### C BC, FES, ANEU, CMP, GFR, FERR, ADIFF #### [address] [address] BUN/Creatinine Ratio 12 ratio Normal 7-27 [facility] ([place]) Comment on above: Performed By: #### C BC, FES, ANEU, CMP, GFR, FERR, ADIFF #### [address] [address] Calcium [Mass/Vol] 8.8 mg/dL Normal 8.4-10.2 [facility] ([place]) Comment on above: Performed By: #### C BC, FES, ANEU, CMP, GFR, FERR, ADIFF #### [address] [address] Chloride [Moles/Vol] 104 mmol/L Normal 98-107 [facility] ([place]) Comment on above: Performed By: #### C BC, FES, ANEU, CMP, GFR, FERR, ADIFF #### [address] [address] CO2 [Moles/Vol] 24 mmol/L Normal 22-29 [facility] ([place]) Comment on above: Performed By: #### C BC, FES, ANEU, CMP, GFR, FERR, ADIFF #### [address] [address] Creatinine [Mass/Vol] 0.69 mg/dL Normal 0.55-1.02 [facility] ([place]) Comment on above: Performed By: #### C BC, FES, ANEU, CMP, GFR, FERR, ADIFF #### [address] [address] Electrolyte Balance 13.0 mEq/L Normal 4.0-15.0 [facility] ([place]) Comment on above: Performed By: #### C BC, FES, ANEU, CMP, GFR, FERR, ADIFF #### [address] [address] Globulin 4.5 G/dL Normal [facility] ([place]) Comment on above: Performed By: #### C BC, FES, ANEU, CMP, GFR, FERR, ADIFF #### [address] [address] Glucose [Mass/Vol] 146 mg/dL High 70-105 [facility] ([place]) Comment on above: Performed By: #### C BC, FES, ANEU, CMP, GFR, FERR, ADIFF #### [address] [address] Potassium [Moles/Vol] 3.9 mmol/L Normal 3.5-5.1 [facility] ([place]) Comment on above: Performed By: #### C BC, FES, ANEU, CMP, GFR, FERR, ADIFF #### [address] [address] Sodium [Moles/Vol] 141 mmol/L Normal 136-145 [facility] ([place]) Comment on above: Performed By: #### C BC, FES, ANEU, CMP, GFR, FERR, ADIFF #### [address] [address] Total Protein 8.0 G/dL Normal 6.4-8.2 [facility] ([place]) Comment on above: Performed By: #### C BC, FES, ANEU, CMP, GFR, FERR, ADIFF #### [address] [address] Urea nitrogen [Mass/Vol] 8 mg/dL Normal 7-18 [facility] ([place]) Comment on above: Performed By: #### C BC, FES, ANEU, CMP, GFR, FERR, ADIFF #### [address] [address] Christopher 12-02-2023 Ferritin [Mass/Vol] 106.0 ng/mL Normal 8.0-252.0 [facility] ([place] Comment on above: Performed By: #### C MP, GFR, ANEU, FES, FERR, ADIFF, CBC ####[place] [address] FESon 12-02-2023 Iron [Mass/Vol] 109 ug/dL Normal 50-170 [facility] ([place]) Comment on above: Performed By: #### C MP, GFR, ANEU, FES, FERR, ADIFF, CBC ####[address] [address] Iron Sat 31 % Normal [facility] ([place]) Comment on above: Performed By: #### C MP, GFR, ANEU, FES, FERR, ADIFF, CBC ####[address] [address] TIBC 353 mcg/dL Normal 250-450 [facility] ([place]) Comment on above: Performed By: #### C MP, GFR, ANEU, FES, FERR, ADIFF, CBC ####[place] [address] GGTon 12-02-2023 Gamma GT 108 U/L High 5-55 [facility] ([place]) Comment on above: Performed By: #### C BC, FES, ANEU, CMP, GFR, FERR, ADIFF #### [address] [address] HBSAGon 12-02-2023 Hep B Surf Ag Non-Reactive Normal Non-Reacti [facility] ([place]) Comment on above: Performed By: #### C BC, FES, ANEU, CMP, GFR, FERR, ADIFF #### [address] [address] HCVon 12-02-2023 Hep C Ab Non-Reactive Normal Non-Reacti [facility] ([place]) Comment on above: Performed By: #### C BC, FES, ANEU, CMP, GFR, FERR, ADIFF #### [place] [address] Hep C Ab Int Normal [facility] ([place]) Comment on above: Result Comment: Nonr eactive: [...] FES, ANEU, CMP, GFR, FERR, ADIFF #### [address] [address] HFPon 12-02-2023 Bili Indirect 1.4 mg/dL Normal [facility] ([place] Comment on above: Performed By: #### C BC, FES, ANEU, CMP, GFR, FERR, ADIFF #### [address] [address] Albumin Level 3.5 G/dL Normal 3.5-5.0 [facility] ([place] Comment on above: Performed By: #### C BC, FES, ANEU, CMP, GFR, FERR, ADIFF #### [address] [address] Albumin/Globulin [Mass ratio] 0.8 {ratio} Low 1.1-2.5 [facility] ([place]) Comment on above: Performed By: #### C BC, FES, ANEU, CMP, GFR, FERR, ADIFF #### [address] [address] ALP [Catalytic activity/Vol] 210 U/L High 40-135 [facility] ([place]) Comment on above: Performed By: #### C BC, FES, ANEU, CMP, GFR, FERR, ADIFF #### [address] [address] ALT [Catalytic activity/Vol] 36 U/L Normal 14-59 [facility] ([place] Comment on above: Performed By: #### C BC, FES, ANEU, CMP, GFR, FERR, ADIFF #### [address] [address] AST [Catalytic activity/Vol] 61 U/L High 10-40 [facility] ([place]) Comment on above: Performed By: #### C BC, FES, ANEU, CMP, GFR, FERR, ADIFF #### [address] [address] Bili Direct 0.6 mg/dL High 0.0-0.2 [facility] ([place]) Comment on above: Result Comment: Use of this assay is not recommended for patients undergoing treatment with eltrombopag due to the potential for falsely elevated results. Performed By: #### C BC, FES, ANEU, CMP, GFR, FERR, ADIFF #### [address] [address] Bili Total 2.0 mg/dL High 0.2-1.0 [facility] ([place]) Comment on above: Result Comment: Use of this assay is not recommended for patients undergoing treatment with eltrombopag due to the potential for falsely elevated results. Performed By: #### C BC, FES, ANEU, CMP, GFR, FERR, ADIFF #### [address] [address] Globulin 4.5 G/dL Normal [facility] ([place]) Comment on above: Performed By: #### C BC, FES, ANEU, CMP, GFR, FERR, ADIFF #### [place] [address] [place], [place] [address] Total Protein 8.0 G/dL Normal 6.4-8.2 [facility] ([place]) Comment on above: Performed By: #### C BC, FES, ANEU, CMP, GFR, FERR, ADIFF #### [place] [address] [place], [place] [address] LABORATORYOrdered By: SYSTEM SYSTEM on 12-02-2023 Albumin [...] CONRAD GundersonGFRon 11-12-2023 GFR 104 ml/min/1.73sqm Normal [facility] ([place] Comment on above: Result Comment: GFR Population [...] FES, ANEU, CMP, GFR, FERR, ADIFF #### [place] [id number] GFR Non- 86 ml/min/1.73sqm Normal [facility] ([place]) Comment on above: Result Comment: GFR Population [...] FES, ANEU, CMP, GFR, FERR, ADIFF #### [address] [address] BMPon 11-12-2023 BUN/Creatinine Ratio 14 ratio Normal 7-27 [facility] ([place]) Comment on above: Performed By: #### C BC, FES, ANEU, CMP, GFR, FERR, ADIFF #### [address] [address] Calcium [Mass/Vol] 9.0 mg/dL Normal 8.4-10.2 [facility] ([place]) Comment on above: Performed By: #### C BC, FES, ANEU, CMP, GFR, FERR, ADIFF #### [address] [address] Chloride [Moles/Vol] 104 mmol/L Normal 98-107 [facility] ([place]) Comment on above: Performed By: #### C BC, FES, ANEU, CMP, GFR, FERR, ADIFF #### [address] [address] CO2 [Moles/Vol] 26 mmol/L Normal 22-29 [facility] ([place]) Comment on above: Performed By: #### C BC, FES, ANEU, CMP, GFR, FERR, ADIFF #### [place] [address] Creatinine [Mass/Vol] 0.70 mg/dL Normal 0.55-1.02 [facility] ([place]) Comment on above: Performed By: #### C BC, FES, ANEU, CMP, GFR, FERR, ADIFF #### [address] [address] Electrolyte Balance 9.0 mEq/L Normal 4.0-15.0 [facility] ([place]) Comment on above: Performed By: #### C BC, FES, ANEU, CMP, GFR, FERR, ADIFF #### [address] [address] Glucose [Mass/Vol] 152 mg/dL High 70-105 [facility] ([place]) Comment on above: Performed By: #### C BC, FES, ANEU, CMP, GFR, FERR, ADIFF #### [place] [address] Potassium [Moles/Vol] 3.8 mmol/L Normal 3.5-5.1 [facility] ([place]) Comment on above: Performed By: #### C BC, FES, ANEU, CMP, GFR, FERR, ADIFF #### [address] [address] Sodium [Moles/Vol] 139 mmol/L Normal 136-145 [facility] ([place]) Comment on above: Performed By: #### C BC, FES, ANEU, CMP, GFR, FERR, ADIFF #### [address] [address] Urea nitrogen [Mass/Vol] 10 mg/dL Normal 7-18 [facility] ([place]) Comment on above: Performed By: #### C BC, FES, ANEU, CMP, GFR, FERR, ADIFF #### [address] [address] LIPIDon 11-12-2023 Cholesterol [Mass/Vol] 235 mg/dL High 0-200 [facility] ([place]) Comment on above: Result Comment: Chol esterol Reference Interval: Less than 200 Desirable 200-239 Borderline high risk 240 and above High risk Performed By: #### C BC, FES, ANEU, CMP, GFR, FERR, ADIFF #### [address] [address] Cholesterol in HDL [Mass/Vol] 53 mg/dL Normal 40-60 [facility] ([place]) Comment on above: Performed By: #### C BC, FES, ANEU, CMP, GFR, FERR, ADIFF #### [address] [address] Cholesterol in LDL [Mass/Vol] 158 mg/dL High 0-130 [facility] ([place]) Comment on above: Performed By: #### C BC, FES, ANEU, CMP, GFR, FERR, ADIFF #### [address] [address] Triglyceride [Mass/Vol] 118 mg/dL Normal 0-150 [facility] ([place]) Comment on above: Result Comment: Trig lyceride Reference Interval: Less than 150 Normal 150-199 Borderline high risk 200-499 High risk 500 or higher Very high risk Performed By: #### C BC, FES, ANEU, CMP, GFR, FERR, ADIFF #### [place] [address] [place] [address] MA MAMMOGRAM SCREENING BILAT ERAL W/TOMOon 11-09-2023 MA MAMMOGRAM SCREENING BILATERAL W/CLARK ORIGINAL FROM: [place] [address] PROCEDURE FOR: SONDRA DUVAL [address] [place] [address] Home: PID#: [id number] Exam#: [id number] : 1965 Age: 58 TO: ROSARIOLUIS WALTERS PENOLOGY TEACHER [facility] [address] [place] [address] Fax: NO FAX EXAMINATION: SCREENING DIGITAL BILATERAL [...] addition to annual mammographic screening per the [employer]. I have personally reviewed the [...] 11/09/2023 11:42:22 AM Ordering Provider: ROSARIO WALTERS Model Photographers': EZEKIEL KARIMI RT(R)(M)(CT) [employer] letter sent: Normal BI-RADS 1 and 2 Mammogram BI-RADS: 1 Negative Normal [facility] ([place]) .Auto Diffon 09-13-2023 Basophil, Absolute 0.0 10 3/mcL Normal 0.0-0.2 [facility] ([place]) Comment on above: Performed By: #### C BC, FES, ANEU, CMP, GFR, FERR, ADIFF #### [address] [address] Basophils/100 WBC (Bld) 0.4 % Normal 0.0-2.5 [facility] ([place]) Comment on above: Performed By: #### C BC, FES, ANEU, CMP, GFR, FERR, ADIFF #### [address] [address] Eosinophil, Absolute 0.3 10 3/mcL Normal 0.0-0.4 [facility] ([place]) Comment on above: Performed By: #### C BC, FES, ANEU, CMP, GFR, FERR, ADIFF #### [address] [address] Eosinophils/100 WBC (Bld) 5.9 % Normal 0.0-7.0 [facility] ([place]) Comment on above: Performed By: #### C BC, FES, ANEU, CMP, GFR, FERR, ADIFF #### [address] [address] Lymphocyte, Absolute 1.2 10 3/mcL Normal 0.8-3.9 [facility] ([place]) Comment on above: Performed By: #### C BC, FES, ANEU, CMP, GFR, FERR, ADIFF #### [address] [address] Lymphocytes/100 WBC (Bld) 27.1 % Normal 10.0-50.0 [facility] ([place]) Comment on above: Performed By: #### C BC, FES, ANEU, CMP, GFR, FERR, ADIFF #### [address] [address] Monocyte, Absolute 0.5 10 3/mcL Normal 0.2-1.0 [facility] ([place]) Comment on above: Performed By: #### C BC, FES, ANEU, CMP, GFR, FERR, ADIFF #### [address] [address] Monocytes/100 WBC (Bld) 10.1 % Normal 1.7-13.0 [facility] ([place]) Comment on above: Performed By: #### C BC, FES, ANEU, CMP, GFR, FERR, ADIFF #### [address] [address] Neutrophils/100 WBC (Bld) 56.5 % Normal 37.0-80.0 [facility] ([place]) Comment on above: Performed By: #### C BC, FES, ANEU, CMP, GFR, FERR, ADIFF #### [address] [address] .GFRon 09-13-2023 GFR 132 ml/min/1.73sqm Normal [facility] ([place]) Comment on above: Result Comment: GFR Population [...] FES, ANEU, CMP, GFR, FERR, ADIFF #### [address] [address] GFR Non- 109 ml/min/1.73sqm Normal [facility] ([place]) Comment on above: Result Comment: GFR Population [...] FES, ANEU, CMP, GFR, FERR, ADIFF #### [address] [address] .NEUABSon 09-13-2023 Neutrophil, Absolute 2.5 10 3/mcL Low 2.9-6.2 [facility] ([place]) Comment on above: Performed By: #### C BC, FES, ANEU, CMP, GFR, FERR, ADIFF #### [address] [address] CBCon 09-13-2023 Erythrocyte distribution width (RBC) [Ratio] 15.9 % High 11.5-14.5 [facility] ([place]) Comment on above: Performed By: #### C BC, FES, ANEU, CMP, GFR, FERR, ADIFF #### [address] [address] Hematocrit (Bld) [Volume fraction] 36.6 % Low 37.0-47.0 [facility] ([place]) Comment on above: Performed By: #### C BC, FES, ANEU, CMP, GFR, FERR, ADIFF #### [address] [address] Hgb 12.8 G/dL Normal 12.0-16.0 [facility] ([place]) Comment on above: Performed By: #### C BC, FES, ANEU, CMP, GFR, FERR, ADIFF #### [address] [address] MCH (RBC) [Entitic mass] 34.0 pg High 27.0-31.2 [facility] ([place]) Comment on above: Performed By: #### C BC, FES, ANEU, CMP, GFR, FERR, ADIFF #### [place] [address] MCHC 35.0 G/dL Normal 33.0-37.0 [facility] ([place]) Comment on above: Performed By: #### C BC, FES, ANEU, CMP, GFR, FERR, ADIFF #### [place] [address] MCV (RBC) [Entitic vol] 97.3 fL High 80.0-94.0 [facility] ([place]) Comment on above: Performed By: #### C BC, FES, ANEU, CMP, GFR, FERR, ADIFF #### [address] [address] Platelet 89 10 3/mcL Low 130-400 [facility] ([place]) Comment on above: Performed By: #### C BC, FES, ANEU, CMP, GFR, FERR, ADIFF #### [address] [address] Platelet mean volume (Bld) [Entitic vol] 8.6 fL Normal 7.4-10.4 [facility] ([place]) Comment on above: Performed By: #### C BC, FES, ANEU, CMP, GFR, FERR, ADIFF #### [address] [address] RBC 3.76 10 6/mcL Low 4.20-5.40 [facility] ([place]) Comment on above: Performed By: #### C BC, FES, ANEU, CMP, GFR, FERR, ADIFF #### [address] [address] WBC 4.5 10 3/mcL Low 4.6-10.8 [facility] ([place]) Comment on above: Performed By: #### C BC, FES, ANEU, CMP, GFR, FERR, ADIFF #### [address] [address] CMPon 09-13-2023 Albumin Level 3.3 G/dL Low 3.5-5.0 [facility] ([place]) Comment on above: Performed By: #### C BC, FES, ANEU, CMP, GFR, FERR, ADIFF #### [address] [address] Albumin/Globulin [Mass ratio] 0.7 {ratio} Low 1.1-2.5 [facility]) Comment on above: Performed By: #### C BC, FES, ANEU, CMP, GFR, FERR, ADIFF #### [address] [address] ALP [Catalytic activity/Vol] 202 U/L High 40-135 [facility] ([place]) Comment on above: Performed By: #### C BC, FES, ANEU, CMP, GFR, FERR, ADIFF #### [address] [address] ALT [Catalytic activity/Vol] 43 U/L Normal 14-59 [facility] ([place]) Comment on above: Performed By: #### C BC, FES, ANEU, CMP, GFR, FERR, ADIFF #### [address] [address] AST [Catalytic activity/Vol] 72 U/L High 10-40 [facility] ([place]) Comment on above: Performed By: #### C BC, FES, ANEU, CMP, GFR, FERR, ADIFF #### [address] [address] Bili Total 1.4 mg/dL High 0.2-1.0 [facility] ([place]) Comment on above: Result Comment: Use of this assay is not recommended for patients undergoing treatment with eltrombopag due to the potential for falsely elevated results. Performed By: #### C BC, FES, ANEU, CMP, GFR, FERR, ADIFF #### [address] [address] BUN/Creatinine Ratio 9 ratio Normal 7-27 [facility] ([place]) Comment on above: Performed By: #### C BC, FES, ANEU, CMP, GFR, FERR, ADIFF #### [address] [address] Calcium [Mass/Vol] 8.7 mg/dL Normal 8.4-10.2 [facility]ly [facility] ([place]) Comment on above: Performed By: #### C BC, FES, ANEU, CMP, GFR, FERR, ADIFF #### [address] [address] Chloride [Moles/Vol] 103 mmol/L Normal 98-107 [facility] ([place]) Comment on above: Performed By: #### C BC, FES, ANEU, CMP, GFR, FERR, ADIFF #### [address] [address] CO2 [Moles/Vol] 27 mmol/L Normal 22-29 [facility] ([place]) Comment on above: Performed By: #### C BC, FES, ANEU, CMP, GFR, FERR, ADIFF #### [address] [address] Creatinine [Mass/Vol] 0.57 mg/dL Normal 0.55-1.02 [facility] ([place]) Comment on above: Performed By: #### C BC, FES, ANEU, CMP, GFR, FERR, ADIFF #### [address] [address] Electrolyte Balance 10.0 mEq/L Normal 4.0-15.0 [facility] ([place]) Comment on above: Performed By: #### C BC, FES, ANEU, CMP, GFR, FERR, ADIFF #### [address] [address] Globulin 4.6 G/dL Normal [facility] ([place]) Comment on above: Performed By: #### C BC, FES, ANEU, CMP, GFR, FERR, ADIFF #### [address] [address] Glucose [Mass/Vol] 187 mg/dL High 70-105 [facility] ([place]) Comment on above: Performed By: #### C BC, FES, ANEU, CMP, GFR, FERR, ADIFF #### [address] [address] Potassium [Moles/Vol] 3.4 mmol/L Low 3.5-5.1 [facility] ([place]) Comment on above: Performed By: #### C BC, FES, ANEU, CMP, GFR, FERR, ADIFF #### [address] [address] Sodium [Moles/Vol] 140 mmol/L Normal 136-145 [facility] ([place]) Comment on above: Performed By: #### C BC, FES, ANEU, CMP, GFR, FERR, ADIFF #### [address] [address] Total Protein 7.9 G/dL Normal 6.4-8.2 [facility] ([place]) Comment on above: Performed By: #### C BC, FES, ANEU, CMP, GFR, FERR, ADIFF #### [address] [address] Urea nitrogen [Mass/Vol] 5 mg/dL Low 7-18 [facility] ([place]) Comment on above: Performed By: #### C BC, FES, ANEU, CMP, GFR, FERR, ADIFF #### [address] [address] Christopher 09-13-2023 Ferritin [Mass/Vol] 87.0 ng/mL Normal 8.0-252.0 [facility] ([place]) Comment on above: Performed By: #### C BC, FES, ANEU, CMP, GFR, FERR, ADIFF #### [place] [address] [place], [place] [address] FESon 09-13-2023 Iron [Mass/Vol] 61 ug/dL Normal 50-170 [facility] ([place]) Comment on above: Performed By: #### C BC, FES, ANEU, CMP, GFR, FERR, ADIFF #### [address] [place], [place] [address] Iron Sat 17 % Normal [facility] ([place]) Comment on above: Performed By: #### C BC, FES, ANEU, CMP, GFR, FERR, ADIFF #### [address] [place], [place] [address] TIBC 368 mcg/dL Normal 250-450 [facility] ([place]) Comment on above: Performed By: #### C BC, FES, ANEU, CMP, GFR, FERR, ADIFF #### [place] [address] LABORATORYOrdered By: SYSTEM SYSTEM on 09-13-2023 Albumin [...] ERYTHon 05-27-2023 Erythropoietin 71.0 mIU/mL High 2.6-18.5 [facility] ([place]) Comment on above: Result Comment: SimuForm DxI 800 Immunoassay System Values obtained with different assay methods or kits cannot be used interchangeably. Results cannot be interpreted as absolute evidence of the presence or absence of malignant disease. Performed At: [facility] [id number] Bakari Carl PhD Ph:[phone] Performed By: #### F ES, ADIFF, ANEU, RETIC, FOL, FERR, [id number], CBC, B12 ####[place] [address] .Auto Diffon 05-26-2023 Basophil, Absolute 0.0 10 3/mcL Normal 0.0-0.3 [facility] ([place]) Comment on above: Performed By: #### F ES, ADIFF, ANEU, RETIC, FOL, FERR, [id number], CBC, B12 ####[place] [address] Basophils/100 WBC (Bld) 0.3 % Normal 0.0-2.5 [facility] ([place]) Comment on above: Performed By: #### F ES, ADIFF, ANEU, RETIC, FOL, FERR, [id number], CBC, B12 ####[address] [address] Eosinophil, Absolute 0.2 10 3/mcL Normal 0.0-0.7 [facility] ([place]) Comment on above: Performed By: #### F ES, ADIFF, ANEU, RETIC, FOL, FERR, 468651, CBC, B12 ####[address] [address] Eosinophils/100 WBC (Bld) 3.6 % Normal 0.0-6.0 [facility] ([place]) Comment on above: Performed By: #### F ES, ADIFF, ANEU, RETIC, FOL, FERR, 232748, CBC, B12 ####[address] [address] Lymphocyte, Absolute 1.2 10 3/mcL Normal 0.9-4.3 [facility] ([place]) Comment on above: Performed By: #### F ES, ADIFF, ANEU, RETIC, FOL, FERR, 651238, CBC, B12 ####[address] [address] Lymphocytes/100 WBC (Bld) 26.5 % Normal 20.0-40.0 [facility] ([place]) Comment on above: Performed By: #### F ES, ADIFF, ANEU, RETIC, FOL, FERR, 303725, CBC, B12 ####[address] [address] Monocyte, Absolute 0.4 10 3/mcL Normal 0.1-1.4 [facility] ([place]) Comment on above: Performed By: #### F ES, ADIFF, ANEU, RETIC, FOL, FERR, 659609, CBC, B12 ####[address] [address] Monocytes/100 WBC (Bld) 8.4 % Normal 2.0-13.0 [facility] ([place]) Comment on above: Performed By: #### F ES, ADIFF, ANEU, RETIC, FOL, FERR, [id number], CBC, B12 ####[address] [address] Neutrophils/100 WBC (Bld) 61.2 % Normal 50.0-75.0 [facility] ([place]) Comment on above: Performed By: #### F ES, ADIFF, ANEU, RETIC, FOL, FERR, 626076, CBC, B12 ####[place] [address] .NEUABSon 05-26-2023 Neutrophil, Absolute 2.7 10 3/mcL Normal 2.3-8.1 [facility] ([place]) Comment on above: Performed By: #### F ES, ADIFF, ANEU, RETIC, FOL, FERR, [id number], CBC, B12 ####[place] [address] B12on 05-26-2023 Cobalamin (Vitamin B12) [Mass/Vol] 628 pg/mL Normal 211-911 [facility] ([place]) Comment on above: Performed By: #### F ES, ADIFF, ANEU, RETIC, FOL, FERR, 587777, CBC, B12 ####[place] [address] CBCon 05-26-2023 Erythrocyte distribution width (RBC) [Ratio] 15.4 % Normal 11.5-15.5 [facility] ([place]) Comment on above: Performed By: #### F ES, ADIFF, ANEU, RETIC, FOL, FERR, 144912, CBC, B12 ####[place] [address] Hematocrit (Bld) [Volume fraction] 34.9 % Normal 34.0-46.0 [facility] ([place]) Comment on above: Performed By: #### F ES, ADIFF, ANEU, RETIC, FOL, FERR, 498511, CBC, B12 ####[place] [address] Hgb 11.6 G/dL Low 12.0-16.0 [facility] ([place]) Comment on above: Performed By: #### F ES, ADIFF, ANEU, RETIC, FOL, FERR, 985382, CBC, B12 ####[place] [address] MCH (RBC) [Entitic mass] 30.8 pg Normal 27.0-33.0 [facility] ([place]) Comment on above: Performed By: #### F ES, ADIFF, ANEU, RETIC, FOL, FERR, 354325, CBC, B12 ####[place] [address] MCHC 33.3 G/dL Normal 32.0-36.0 [facility] ([place]) Comment on above: Performed By: #### F ES, ADIFF, ANEU, RETIC, FOL, FERR, 990089, CBC, B12 ####[place] [address] MCV (RBC) [Entitic vol] 92.3 fL Normal 80.0-99.0 [facility] ([place]) Comment on above: Performed By: #### F ES, ADIFF, ANEU, RETIC, FOL, FERR, 948348, CBC, B12 ####[place] [address] Platelet 118 10 3/mcL Low 150-450 [facility] ([place]) Comment on above: Performed By: #### F ES, ADIFF, ANEU, RETIC, FOL, FERR, 968770, CBC, B12 ####[place] [address] Platelet mean volume (Bld) [Entitic vol] 8.2 fL Normal 6.6-10.5 [facility] ([place]) Comment on above: Performed By: #### F ES, ADIFF, ANEU, RETIC, FOL, FERR, 712495, CBC, B12 ####[place] [address] RBC 3.78 10 6/mcL Low 4.10-5.30 [facility] ([place]) Comment on above: Performed By: #### F ES, ADIFF, ANEU, RETIC, FOL, FERR, 023675, CBC, B12 ####[place] [address] WBC 4.4 10 3/mcL Low 4.5-10.8 [facility] ([place]) Comment on above: Performed By: #### F ES, ADIFF, ANEU, RETIC, FOL, FERR, 231126, CBC, B12 ####[address] [address] Christopher 05-26-2023 Ferritin [Mass/Vol] 16.8 ng/mL Normal 8.0-252.0 [facility] ([place]) Comment on above: Performed By: #### F ES, ADIFF, ANEU, RETIC, FOL, FERR, 801399, CBC, B12 ####[place] [address] FESon 05-26-2023 Iron [Mass/Vol] 80 ug/dL Normal 50-170 [facility] ([place]) Comment on above: Performed By: #### F ES, ADIFF, ANEU, RETIC, FOL, FERR, 547274, CBC, B12 ####[place] [address] Iron Sat 18 % Normal [facility] ([place]) Comment on above: Performed By: #### F ES, ADIFF, ANEU, RETIC, FOL, FERR, 708849, CBC, B12 ####[place] [address] TIBC 435 mcg/dL Normal 250-500 [facility] ([place]) Comment on above: Performed By: #### F ES, ADIFF, ANEU, RETIC, FOL, FERR, 722064, CBC, B12 ####[place] [address] FOLon 05-26-2023 Folate 16.35 ng/mL Normal 5.38-24.00 [facility] ([place]) Comment on above: Performed By: #### F ES, ADIFF, ANEU, RETIC, FOL, FERR, 678996, CBC, B12 ####[place] [address] LABORATORYOrdered By: SYSTEM SYSTEM on 05-26-2023 Basophils [...] Immature Retic Fraction 0.42 IRF Normal 0.20-0.46 [facility] ([place]) Comment on above: Performed By: #### F ES, ADIFF, ANEU, RETIC, FOL, FERR, 624260, CBC, B12 ####[address] [address] Reticulocytes, Auto 1.7 % Normal 0.2-2.3 [facility] ([place]) Comment on above: Performed By: #### F ES, ADIFF, ANEU, RETIC, FOL, FERR, 892120, CBC, B12 ####[address] [address] LABORATORYOrdered By: Miguelina Hicks on 05-18-2023 Albumin DL <= 20 mg/L (U) [Mass/Vol] 6363 mcg/dL Invalid Interpretation Code AO ADM SS Albumin/Creatinine DL <= 20 mg/L (U) [Mass ratio] 27 mcg/mg Normal 0 - 30 mcg/mg AO ADM SS Creatinine (U) [Mass/Vol] 231.8 mg/dL High 28.0 - 117.0 mg/dL AO ADM SS MALBRon 05-18-2023 U Creatinine 231.8 mg/dL High 28.0-117.0 [facility] ([place]) Comment on above: Performed By: #### C BC, FES, ANEU, CMP, GFR, FERR, ADIFF #### [address] [address] U Microalb 6363 mcg/dL Normal [facility] ([place]) Comment on above: Performed By: #### C BC, FES, ANEU, CMP, GFR, FERR, ADIFF #### [facility] [address] [place], [place] [address] U Ratio Alb/Cre 27 mcg/mg Normal 0-30 [facility] ([place]) Comment on above: Performed By: #### C BC, FES, ANEU, CMP, GFR, FERR, ADIFF #### [facility] [address] [place], [place] [address] US ELASTOGRAPHY LIVER ONLYon 05-04-2023 US ELASTOGRAPHY [...] 05/04/2023 6:34:15 PM Ordering Provider: ROSARIO Funes [facility] ([place]) US ABDOMEN LIMITEDon 02-2 023 US ABDOMEN [...] 03/29/2023 11:37:48 PM Ordering Provider: ROSARIO Funes [facility] ([place]) .Auto Diffon 03-09-2023 Basophil, Absolute 0.0 10 3/mcL Normal 0.0-0.2 [facility] ([place]) Comment on above: Performed By: #### F T4, CBC, ADIFF, TSH, GFR, ANEU, CMP, VIDH ####[place] [address]#### B12 ####[address] [address] Basophils/100 WBC (Bld) 0.2 % Normal 0.0-2.5 [facility] ([place]) Comment on above: Performed By: #### F T4, CBC, ADIFF, TSH, GFR, ANEU, CMP, VIDH ####[place] [address]#### B12 ####[address] [address] Eosinophil, Absolute 0.2 10 3/mcL Normal 0.0-0.4 [facility] ([place]) Comment on above: Performed By: #### F T4, CBC, ADIFF, TSH, GFR, ANEU, CMP, VIDH ####[place] [address]#### B12 ####[address] [address] Eosinophils/100 WBC (Bld) 4.7 % Normal 0.0-7.0 [facility] ([place]) Comment on above: Performed By: #### F T4, CBC, ADIFF, TSH, GFR, ANEU, CMP, VIDH ####[place] [address]#### B12 ####[address] [address] Lymphocyte, Absolute 1.0 10 3/mcL Normal 0.8-3.9 [facility] ([place]) Comment on above: Performed By: #### F T4, CBC, ADIFF, TSH, GFR, ANEU, CMP, VIDH ####[place] [address]#### B12 ####[address] [address] Lymphocytes/100 WBC (Bld) 25.8 % Normal 10.0-50.0 [facility] ([place]) Comment on above: Performed By: #### F T4, CBC, ADIFF, TSH, GFR, ANEU, CMP, VIDH ####[place] [address]#### B12 ####[address] [address] Monocyte, Absolute 0.4 10 3/mcL Normal 0.2-1.0 [facility] ([place]) Comment on above: Performed By: #### F T4, CBC, ADIFF, TSH, GFR, ANEU, CMP, VIDH ####[place] [address]#### B12 ####[address] [address] Monocytes/100 WBC (Bld) 9.0 % Normal 1.7-13.0 [facility] ([place]) Comment on above: Performed By: #### F T4, CBC, ADIFF, TSH, GFR, ANEU, CMP, VIDH ####[place] [address]#### B12 ####[address] [address] Neutrophils/100 WBC (Bld) 60.3 % Normal 37.0-80.0 [facility] ([place]) Comment on above: Performed By: #### F T4, CBC, ADIFF, TSH, GFR, ANEU, CMP, VIDH ####[address] [place], [place] [address]#### B12 ####[address] [address] .GFRon 03-09-2023 GFR 108 ml/min/1.73sqm Normal [facility] ([place]) Comment on above: Result Comment: GFR Population [...] ADIFF, TSH, GFR, ANEU, CMP, VIDH ####[address] [place], [place] [address]#### B12 ####[address] [address] GFR Non- 89 ml/min/1.73sqm Normal [facility] ([place]) Comment on above: Result Comment: GFR Population [...] CBC, ADIFF, TSH, GFR, ANEU, CMP, VIDH ####[place] [address]#### B12 ####[place] [address] .NEUABSon 03-09-2023 Neutrophil, Absolute 2.4 10 3/mcL Low 2.9-6.2 [facility] ([place]) Comment on above: Performed By: #### F T4, CBC, ADIFF, TSH, GFR, ANEU, CMP, VIDH ####[place] [address]#### B12 ####[place] [address] B12on 03-09-2023 Cobalamin (Vitamin B12) [Mass/Vol] 1349 pg/mL High 211-911 [facility] ([place]) Comment on above: Performed By: #### F T4, CBC, ADIFF, TSH, GFR, ANEU, CMP, VIDH ####[place] [address]#### B12 ####[place] [address] CBCon 03-09-2023 Erythrocyte distribution width (RBC) [Ratio] 17.2 % High 11.5-14.5 [facility] ([place]) Comment on above: Performed By: #### F T4, CBC, ADIFF, TSH, GFR, ANEU, CMP, VIDH ####[place] [address]#### B12 ####[place] [address] Hematocrit (Bld) [Volume fraction] 34.8 % Low 37.0-47.0 [facility] ([place]) Comment on above: Performed By: #### F T4, CBC, ADIFF, TSH, GFR, ANEU, CMP, VIDH ####[place] [address]#### B12 ####[place] [address] Hgb 11.6 G/dL Low 12.0-16.0 [facility] ([place]) Comment on above: Performed By: #### F T4, CBC, ADIFF, TSH, GFR, ANEU, CMP, VIDH ####[place] [address]#### B12 ####[place] [address] MCH (RBC) [Entitic mass] 30.7 pg Normal 27.0-31.2 [facility] ([place]) Comment on above: Performed By: #### F T4, CBC, ADIFF, TSH, GFR, ANEU, CMP, VIDH ####[place] [address]#### B12 ####[place] [address] MCHC 33.4 G/dL Normal 33.0-37.0 [facility] ([place]) Comment on above: Performed By: #### F T4, CBC, ADIFF, TSH, GFR, ANEU, CMP, VIDH ####[place] [address]#### B12 ####[place] [address] MCV (RBC) [Entitic vol] 92.1 fL Normal 80.0-94.0 [facility] ([place]) Comment on above: Performed By: #### F T4, CBC, ADIFF, TSH, GFR, ANEU, CMP, VIDH ####[place] [address]#### B12 ####[place] [address] Platelet 97 10 3/mcL Low 130-400 [facility] ([place]) Comment on above: Performed By: #### F T4, CBC, ADIFF, TSH, GFR, ANEU, CMP, VIDH ####[place] [address]#### B12 ####[place] [address] Platelet mean volume (Bld) [Entitic vol] 8.5 fL Normal 7.4-10.4 [facility] ([place]) Comment on above: Performed By: #### F T4, CBC, ADIFF, TSH, GFR, ANEU, CMP, VIDH ####[place] [address]#### B12 ####[address] [address] RBC 3.78 10 6/mcL Low 4.20-5.40 [facility] ([place]) Comment on above: Performed By: #### F T4, CBC, ADIFF, TSH, GFR, ANEU, CMP, VIDH ####[place] [address]#### B12 ####[place] [address] WBC 4.0 10 3/mcL Low 4.6-10.8 [facility] ([place]) Comment on above: Performed By: #### F T4, CBC, ADIFF, TSH, GFR, ANEU, CMP, VIDH ####[place] [address]#### B12 ####[place] [address] CMPon 03-09-2023 Albumin Level 3.7 G/dL Normal 3.5-5.0 [facility] ([place]) Comment on above: Performed By: #### F T4, CBC, ADIFF, TSH, GFR, ANEU, CMP, VIDH ####[place] [address]#### B12 ####[place] [address] Albumin/Globulin [Mass ratio] 0.8 {ratio} Low 1.1-2.5 [facility] ([place]) Comment on above: Performed By: #### F T4, CBC, ADIFF, TSH, GFR, ANEU, CMP, VIDH ####[place] [address]#### B12 ####[address] [address] ALP [Catalytic activity/Vol] 197 U/L High 40-135 [facility] ([place] Comment on above: Performed By: #### F T4, CBC, ADIFF, TSH, GFR, ANEU, CMP, VIDH ####[place] [id number]#### B12 ####[place] [address] ALT [Catalytic activity/Vol] 44 U/L Normal 14-59 [facility] ([place] Comment on above: Performed By: #### F T4, CBC, ADIFF, TSH, GFR, ANEU, CMP, VIDH ####[place] [address]#### B12 ####[place] [address] AST [Catalytic activity/Vol] 68 U/L High 10-40 [facility] ([place]) Comment on above: Performed By: #### F T4, CBC, ADIFF, TSH, GFR, ANEU, CMP, VIDH ####[place] [address]#### B12 ####[place] [address] Bili Total 0.7 mg/dL Normal 0.2-1.0 [facility] ([place]) Comment on above: Result Comment: Use of this assay is not recommended for patients undergoing treatment with eltrombopag due to the potential for falsely elevated results. Performed By: #### F T4, CBC, ADIFF, TSH, GFR, ANEU, CMP, VIDH ####[place] [address]#### B12 ####[place] [address] BUN/Creatinine Ratio 9 ratio Normal 7-27 [facility] ([place]) Comment on above: Performed By: #### F T4, CBC, ADIFF, TSH, GFR, ANEU, CMP, VIDH ####[place] [address]#### B12 ####[place] [address] Calcium [Mass/Vol] 8.8 mg/dL Normal 8.4-10.2 [facility] ([place]) Comment on above: Performed By: #### F T4, CBC, ADIFF, TSH, GFR, ANEU, CMP, VIDH ####[place] [address]#### B12 ####[place] [address] Chloride [Moles/Vol] 103 mmol/L Normal 98-107 [facility] ([place]) Comment on above: Performed By: #### F T4, CBC, ADIFF, TSH, GFR, ANEU, CMP, VIDH ####[place] [address]#### B12 ####[place] [address] CO2 [Moles/Vol] 22 mmol/L Normal 22-29 [facility] ([place]) Comment on above: Performed By: #### F T4, CBC, ADIFF, TSH, GFR, ANEU, CMP, VIDH ####[place] [address]#### B12 ####[place] [address] Creatinine [Mass/Vol] 0.68 mg/dL Normal 0.55-1.02 [facility] ([place]) Comment on above: Performed By: #### F T4, CBC, ADIFF, TSH, GFR, ANEU, CMP, VIDH ####[place] [address]#### B12 ####[place] [address] Electrolyte Balance 13.0 mEq/L Normal 4.0-15.0 [facility] ([place]) Comment on above: Performed By: #### F T4, CBC, ADIFF, TSH, GFR, ANEU, CMP, VIDH ####[place] [address]#### B12 ####[address] [address] Globulin 4.7 G/dL Normal [facility] ([place]) Comment on above: Performed By: #### F T4, CBC, ADIFF, TSH, GFR, ANEU, CMP, VIDH ####[address] [address]#### B12 ####[address] [address] Glucose [Mass/Vol] 154 mg/dL High 70-105 [facility] ([place]) Comment on above: Performed By: #### F T4, CBC, ADIFF, TSH, GFR, ANEU, CMP, VIDH ####[place] [address]#### B12 ####[address] [address] Potassium [Moles/Vol] 4.1 mmol/L Normal 3.5-5.1 [facility] ([place]) Comment on above: Performed By: #### F T4, CBC, ADIFF, TSH, GFR, ANEU, CMP, VIDH ####[place] [address]#### B12 ####[address] [address] Sodium [Moles/Vol] 138 mmol/L Normal 136-145 [facility] ([place]) Comment on above: Performed By: #### F T4, CBC, ADIFF, TSH, GFR, ANEU, CMP, VIDH ####[place] [address]#### B12 ####[address] [address] Total Protein 8.4 G/dL High 6.4-8.2 [facility] ([place]) Comment on above: Performed By: #### F T4, CBC, ADIFF, TSH, GFR, ANEU, CMP, VIDH ####[place] [address]#### B12 ####[place] [address] Urea nitrogen [Mass/Vol] 6 mg/dL Low 7-18 [facility] ([place] Comment on above: Performed By: #### F T4, CBC, ADIFF, TSH, GFR, ANEU, CMP, VIDH ####[place] [address]#### B12 ####[place] [address] FT4on 03-09-2023 Free T4 [Mass/Vol] 1.18 ng/dL Normal 0.76-1.46 [facility] ([place]) Comment on above: Performed By: #### F T4, CBC, ADIFF, TSH, GFR, ANEU, CMP, VIDH ####[place] [address]#### B12 ####[place] [address] TSHon 03-09-2023 TSH Qn 1.57 m[IU]/L Normal 0.36-3.74 Formerly [facility] ([place]) Comment on above: Performed By: #### F T4, CBC, ADIFF, TSH, GFR, ANEU, CMP, VIDH ####[place] [address]#### B12 ####[place] [address] VIDHon 03-09-2023 Vit. D 25-Hydroxy 14.7 ng/mL Normal [facility] ([place]) Comment on above: Result Comment: Inte rpretive Values Based on Total 25(OH) Vitamin D: Deficient <20 ng/mL Insufficient 20 - <30 ng/mL Sufficient 30-100 ng/mL Performed By: #### F T4, CBC, ADIFF, TSH, GFR, ANEU, CMP, VIDH ####[place] [address]#### B12 ####[place] [address] LABORATORYOrdered By: Julio Armstrong on 12-22-2021 Basophil, [...] Glucose Testing Reason Routine (06/11/21 7:22 AM) [facility] Glucose [Mass/Vol] 149 mg/dL Invalid Interpretation Code 70 - 110 mg/dL [facility] LABORATORYOrdered By: Hilda Stiles on 06-11-2021 [...] Glucose Testing Reason Routine (06/10/21 9:01 PM) [facility] Glucose [Mass/Vol] 170 mg/dL Invalid Interpretation Code 70 - 110 mg/dL [facility] LABORATORYOrdered By: Ivy Lei on 06-10-2021 Glucose [Mass/Vol] 142 mg/dL Invalid Interpretation Code 70 - 110 mg/dL [facility] LABORATORYOrdered By: Namita Portillo on 06-10-2021 Blood Glucose Testing Reason Routine (06/10/21 8:42 AM) [facility] LABORATORYOrdered By: Lavern Villaseñor on 05-28-2021 [...] 12-28-2017 Anion gap 8 mmol[facility]L [facility] 5-[facility]: Order Comment: Isael s: M Performed By: #### L 500.35368, L500.82981 ####[facility] [id number] [place], [place] [address]Un# [phone] BUN/Creatinine Ratio 17 mg/mg Normal 15-24 [facility] Comment on above: Order Comment: Isael s: M Performed By: #### L 500.52397, L500.71992 ####[facility] [id number] [place], [place] [address]Tl# [phone] Calcium 9.4 mg/dL Normal 8.5-10.1 [facility] Comment on above: Order Comment: Campu s: M Performed By: #### L 500.72170, L500.26816 ####[facility] TMVRLXKYLB6733 [place], [place] [address]It# [phone] Chloride 105 mmol/L Normal 98-107 [facility] Comment on above: Order Comment: Campu s: M Performed By: #### L 500.19852, L500.43930 ####[facility] TJLXBBUEBC0968 [place], [place] [address]Ky# [phone] CO2 25 mmol/L Normal 21-32 [facility] Comment on above: Order Comment: Campu s: M Performed By: #### L 500.69487, L500.43799 ####[facility] [id number] [place] [address]Ai# [phone] Creatinine 0.778 mg/dL Normal 0.510-0.[address] [facility] Comment on above: Order Comment: Campu s: M Result Comment: Rhona ents receiving either N-Acetylcysteine (NAC) orMetamizole prior to venipuncture, may have falsely depressedresults. Performed By: #### L 500.13420, L500.01305 ####[facility] YMTUTFVNIX3272 [place], [place] [address]Te# [phone] Glucose mass conc 140 mg/dL High 70-100 [facility] Comment on above: Order Comment: Campu s: M Result Comment: 70-1 00- Normal Fasting; 100-125 Impaired Fasting; greaterthan 126 on more than one result- Diabetes. ADA guidelines.Results may be falsely elevated after the administration ofSulfapyridine.Results may be falsely depressed after the administration ofSulfasalazine. Performed By: #### L 500.01186, L500.95402 ####[facility] APQCFIELHN[address] [place] [address]Sa# [phone] Potassium molar conc 4.4 mmol/L Normal 3.5-5.1 [facility] Comment on above: Order Comment: Campu s: M Result Comment: Slig ht Hemolysis, Result may be falsely increased. Performed By: #### L 500.33887, L500.83031 ####[facility] LUSJKKFMBS[address] [place] [address]Cq# [phone] Sodium 138 mmol/L Normal 136-145 [facility] Comment on above: Order Comment: Campu s: M Performed By: #### L 500.21254, L500.94528 ####[facility] LCPDHCMCPT[address] [place] [address]Qr# [phone] Urea nitrogen 13 mg/dL Normal 7-26 [facility] Comment on above: Order Comment: Campu s: M Performed By: #### L 500.94625, L500.59386 ####[facility] IGHYSGQKQD[address] [place], [place] [address]Ph# [phone] CARD.CATHon 12-28-2017 CARD.CATH [Embedded Image Not Available][facility] Patient Name: FER DUVAL [facility] Date of : [address] [address] Unit Number: [id number] Number: [id number] Catheterization Patient Status: REG SDCAttending Doctor: Jacoby Mcrae MDService Date: 12/28/17 0920Cardiac CatheterizationReferring Physician:Viri Rowland AOrdering Provider:Shiv Casasergies:Coded Allergies:PENICILLINS (Mild, HIVES 12/27/17)Summary:Procedure s performed:17923: left-heart catheterization and coronary and bypass graft angiographyIndications:R07 .9: angina pwytzwrgY61.10: two-vessel [place] artery coronary artery oqmgeeeX03.1: history of four-vessel coronary artery bypass graft [...] closuredevice due to patient body habitus.Impression:1. 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 Cardiac Catheterization Normal [facility] CBCon 12-28-2017 Erythrocyte distribution width Auto Ratio (RBC) 14.4 % Normal 11-14.5 [facility] Comment on above: Order Comment: Campu s: M Performed By: #### L 200.40845 ####[facility] UHYTVXDNIC7348 [place], [place] [address]Se# [phone] Erythrocytes (RBC) 4.38 M/CU MM Normal 3.90-5.30 [facility] Comment on above: Order Comment: Campu s: M Performed By: #### L 200.98552 ####[facility] PJRKUFGLHA3521 [place], [place] [address]Rl# [phone] Hematocrit (HCT) 40.6 % Normal 35.0-47.0 [facility] Comment on above: Order Comment: Campu s: M Performed By: #### L 200.92335 ####[facility] HJSUHXLUAZ7570 [place], [place] [address]Em# [phone] Hemoglobin mass conc (Bld) 13.4 g/dL Normal 11.5-15.5 [facility] Comment on above: Order Comment: Campu s: M Performed By: #### L 200.05948 ####[facility] DQOJQJRUBM2141 [place], [place] [address]Fq# [phone] MCHC mass conc (RBC) 33.0 g/dL Normal 32.0-36.0 [facility] Comment on above: Order Comment: Campu s: M Performed By: #### L 200.58602 ####[facility] NNZIVBEUVL1022 [place], [place] [address]Wd# [phone] MCV 92.7 fL Normal 80.0-99.0 [facility] Comment on above: Order Comment: Campu s: M Performed By: #### L 200.07842 ####[facility] HFUBFGOQXP8240 [place], [place] [address]Kd# [phone] NRBC 0.0 % Normal Less than 1 [facility] Comment on above: Order Comment: Campu s: M Performed By: #### L 200.64176 ####[facility] XMCCHPEIBQ[address] [place] [address]Ht# [phone] Platelet mean volume (PMV) 10.3 fL Normal 9.4-12.4 [facility] Comment on above: Order Comment: Campu s: M Performed By: #### L 200.52910 ####[address] [address]Uq# [phone] Platelets 201 K/CU MM Normal 150-450 [facility] Comment on above: Order Comment: Campu s: M Performed By: #### L 200.16025 ####[facility] ZBPOHMCJSQ[address] [place] [address]Jg# [phone] WBC (Leukocytes) 7.1 K/CU MM Normal 4.5-11.0 [facility] Comment on above: Order Comment: Campu s: M Performed By: #### L 200.56776 ####[facility] QCKTVKWRHC[address] [place] [address]Gi# [phone] GFR ESTon 12-28-2017 IF AMER Greater than 60 Normal [facility] Comment on above: Order Comment: Campu s: M Performed By: #### L 500.67511, L500.89397 ####[facility] BMLRWYYTYB[address] [place] [address]Bh# [phone] IF non-AFR AMER Greater than 60 Normal [facility] Comment on above: Order Comment: Campu s: M Performed By: #### L 500.13020, L500.54171 ####[facility] QCWCHGPRJN[address] [place] [address]Ne# [phone] Urinalysis, Office (30763)on 10-16-2009 Bilirubin Ql (U) Negative Normal Comprehe [...] Normal [facility] Work Phone: CALCIFEDIOL ([phone])Ordered B y: Credentialing Coordinator on 09-16-2009 Calcitriol [Mass/Vol] 9.0 ng/mL Abnormal 32.0-100.0 [facility] Work Phone: Comment on above: Recent studies consi rodríguez the lower limit of 32.0 ng/mL to be athreshold for optimal health.Joo PEREYRA. J Nutr. 2004;135(2):317-22. PATIENT WAS FASTINGP ERFORMED BY: [employer]70 [address] [id number] CBC & PLATELETS (AUTO) ([id number] [id number])Ordered By: Credentialing Coordinator on 09-16-2009 Erythrocyte distribution width (RBC) [Ratio] 14.2 % Normal 11.7-15.0 [facility] Work Phone: Comment on above: PATIENT WAS FASTINGP ERFORMED BY: [employer]70 [address] [id number] Hematocrit (Bld) [Volume fraction] 38.9 % Normal 34.0-44.0 [facility] Work Phone: Comment on above: PATIENT WAS FASTINGP ERFORMED BY: [facility] Oyuhjj7778 [address] [facility] [place] [id number] Hemoglobin (Bld) [Mass/Vol] 13.4 g/dL Normal 11.5-15.0 [facility] Work Phone: Comment on above: PATIENT WAS FASTINGP ERFORMED BY: [facility] Vojiar1843 [facility] [place] [id number] MCH (RBC) [Entitic mass] 32.2 pg Normal 27.0-34.0 [facility] Work Phone: Comment on above: PATIENT WAS FASTINGP ERFORMED BY: LabAsp[facility]6370 [address] RoadDuin [place] [id number] MCHC (RBC) [Mass/Vol] 34.4 g/dL Normal 32.0-36.[address] [facility] Internal Medicine Work Phone: Comment on above: PATIENT WAS FASTINGP ERFORMED BY: [facility] Caequq9472 [address] [place] [id number] MCV (RBC) [Entitic vol] 94 fL Normal 80-98 [facility] Work Phone: Comment on above: PATIENT WAS FASTINGP ERFORMED BY: [facility] Nfcmqr4154 [address] [place] [id number] Platelets (Bld) [#/Vol] 323 {x10E3/uL} Normal 140-415 [facility] Work Phone: Comment on above: PATIENT WAS FASTINGP ERFORMED BY: [facility] Asruvb8699 [address] [facility] [place] [id number] RBC (Bld) [#/Vol] 4.15 {x10E6/uL} Normal 3.80-5.10 [facility] Internal Medicine Work Phone: Comment on above: PATIENT WAS FASTINGP ERFORMED BY: [facility] Vzjnvj4790 [address] [facility] [id number] WBC (Bld) [#/Vol] 10.5 {x10E3/uL} Normal 4.0-10.5 [facility] Internal Medicine Work Phone: Comment on above: PATIENT WAS FASTINGP ERFORMED BY: LEDA Gabymartha Uuqsfi3376 [facility] [id number] Lipid Panel (95135)Ordered B y: Credentialing Coordinator on 09-16-2009 Cholesterol [Mass/Vol] 296 mg/dL Abnormal 100-199 [facility] Work Phone: Comment on above: PATIENT WAS FASTINGP ERFORMED BY: LED[facility] Huyyxq8089 [facility] [id number] Cholesterol in HDL [Mass/Vol] 35 mg/dL Abnormal [facility] Work Phone: Comment on above: According to ATP-III Guidelines, HDL-C >59 mg/dL is considered anegative risk factor for CHD. PATIENT WAS FASTINGP ERFORMED BY: LEDA Griffin Gibgtq1546 [facility] [id number] Cholesterol in LDL [Mass/Vol] 205 mg/dL Abnormal 0-99 [facility] Work Phone: Comment on above: PATIENT WAS FASTINGP ERFORMED BY: LEDA NéstorRadha DonatoKvibfj0284 [facility] [id number] Cholesterol in LDL/Cholesterol in HDL [Mass ratio] 5.9 {ratio_units} Abnormal 0.0-3.2 [facility] Work Phone: Comment on above: PATIENT WAS FASTINGP ERFORMED BY: LEDA [facility] Qzfcmd5593 [facility] [id number] Cholesterol in VLDL [Mass/Vol] 56 mg/dL Abnormal 5-40 [facility] Work Phone: Comment on above: PATIENT WAS FASTINGP ERFORMED BY: LEDA LabDcmartha Kyslco5736 [address] [id number] Triglyceride [Mass/Vol] 278 mg/dL Abnormal 0-149 [facility] Work Phone: Comment on above: PATIENT WAS FASTINGP ERFORMED BY: LEDA [facility]6370 [facility] [id number] METABOLIC PANEL, COMPREHENSI VE ([id number])Ordered By: Credentialing Coordinator on 09-16-2009 Albumin [Mass/Vol] 4.6 g/dL Normal 3.5-5.5 [facility] Internal Medicine Work Phone: Comment on above: PATIENT WAS FASTINGP ERFORMED BY: [place] [address]40270 [facility] [id number] Information: ADD DRAW FEE 963709 AND J0 3378 Albumin/Globulin [Mass ratio] 1.5 {ratio} Normal 1.1-2.5 [facility] Work Phone: Comment on above: PATIENT WAS FASTINGP ERFORMED BY: LEDA [address] [id number] Information: ADD DRAW FEE 465334 AND J0 3378 ALP [Catalytic activity/Vol] 103 [iU]/L Normal 25-150 [facility] Work Phone: Comment on above: PATIENT WAS FASTINGP ERFORMED BY: LEDA LabAmanda [place] 5496470 [facility] [id number] Information: ADD DRAW FEE 966441 AND J0 3378 ALT [Catalytic activity/Vol] 19 [iU]/L Normal 0-40 [facility] Work Phone: Comment on above: PATIENT WAS FASTINGP ERFORMED BY: [place] 8740270 [facility] [id number] Information: ADD DRAW FEE 281187 AND J0 3378 AST [Catalytic activity/Vol] 23 [iU]/L Normal 0-40 [facility] Work Phone: Comment on above: PATIENT WAS FASTINGP ERFORMED BY: LabAmanda [place] 5496470 [facility] [id number] Information: ADD DRAW FEE 813142 AND J0 3378 Bilirubin [Mass/Vol] 0.2 mg/dL Normal 0.1-1.2 [facility] Internal Medicine Work Phone: Comment on above: PATIENT WAS FASTINGP ERFORMED BY: CB [facility] Jfkebl6953 [facility] [id number] Information: ADD DRAW FEE 568478 AND J0 3378 Calcium [Mass/Vol] 9.7 mg/dL Normal 8.7-10.2 [facility] Internal Medicine Work Phone: Comment on above: PATIENT WAS FASTINGP ERFORMED BY: [facility] Okrejz7515 [facility] [id number] Information: ADD DRAW FEE 578871 AND J0 3378 Chloride [Moles/Vol] 105 mmol/L Normal 97-108 [facility] Internal Medicine Work Phone: Comment on above: PATIENT WAS FASTINGP ERFORMED BY: [facility] Eplgpt2051 [facility] [id number] Information: ADD DRAW FEE 096099 AND J0 3378 CO2 [Moles/Vol] 19 mmol/L Abnormal 20-32 [facility] Internal Medicine Work Phone: Comment on above: PATIENT WAS FASTINGP ERFORMED BY: [facility] Vdaotm2249 [facility] [id number] Information: ADD DRAW FEE 242537 AND J0 3378 Creatinine [Mass/Vol] 0.89 mg/dL Normal 0.57-1.00 [facility] Work Phone: Comment on above: PATIENT WAS FASTINGP ERFORMED BY: [facility] Lurnun8164 [facility] [id number] Information: ADD DRAW FEE 586516 AND J0 3378 GFR/1.73 sq M predicted [...] [email or web address]. PATIENT WAS FASTINGP ERFORMED BY: LEDA [address] [id number] Information: ADD DRAW FEE 148937 AND J0 3378 GFR/1.73 sq M.predicted MDRD (S/P/Bld) [Vol rate/Area] mL/min/{1.73_m2} Normal [facility] Work Phone: Comment on above: PATIENT WAS FASTINGP ERFORMED BY: LEDA [address] [id number] Information: ADD DRAW FEE 150420 AND J0 3378 Globulin (S) [Mass/Vol] 3.1 g/dL Normal 1.5-4.5 [facility] Work Phone: Comment on above: PATIENT WAS FASTINGP ERFORMED BY: LEDA [address] [id number] Information: ADD DRAW FEE 548160 AND J0 3378 Glucose [Mass/Vol] 99 mg/dL Normal 65-99 [facility] Internal Medicine Work Phone: Comment on above: PATIENT WAS FASTINGP ERFORMED BY: LEDA [address] [id number] Information: ADD DRAW FEE 928389 AND J0 3378 Potassium [Moles/Vol] 4.3 mmol/L Normal 3.5-5.2 [facility] Work Phone: Comment on above: PATIENT WAS FASTINGP ERFORMED BY: [address] [id number] Information: ADD DRAW FEE 427086 AND J0 3378 Protein [Mass/Vol] 7.7 g/dL Normal 6.0-8.5 [facility] Work Phone: Comment on above: PATIENT WAS FASTINGP ERFORMED BY: LEDA [address] [id number] Information: ADD DRAW FEE 210741 AND J0 3378 Sodium [Moles/Vol] 139 mmol/L Normal 135-145 Compre [facility] Internal Medicine Work Phone: Comment on above: PATIENT WAS FASTINGP ERFORMED BY: LEDA LabComartha AlstonUeywfr1463 [facility] [id number] Information: ADD DRAW FEE 272482 AND J0 3378 Urea nitrogen [Mass/Vol] 10 mg/dL Normal 5-26 [facility] Work Phone: Comment on above: PATIENT WAS FASTINGP ERFORMED BY: LEDA [facility] Dnjkkd4656 [address] [id number] Information: ADD DRAW FEE 854199 AND J0 3378 Urea nitrogen/Creatinine [Mass ratio] 11 mg/mg Normal 8-27 [facility] Work Phone: Comment on above: PATIENT WAS FASTINGP ERFORMED BY: LEDA LabComartha DonatoBpugkk0467 [facility] [id number] Information: ADD DRAW FEE 024352 AND J0 3378 SED RATE ERYTHROCYTE (06189) Ordered By: Credentialing Coordinator on 09-16-2009 ESR (Bld) [Velocity] 19 mm/h Normal 0-20 Comp rehensive Internal Medicine Work Phone: Comment on above: PATIENT WAS FASTINGP ERFORMED BY: LEDA LabComartha Htkmms6259 [facility] [id number] TSH (37106)Ordered By: Hitlantise m Digestion Operator on 09-16-2009 TSH Qn 0.727 {uIU/mL} Normal 0.450-4.50 0 [facility] Work Phone: Comment on above: PATIENT WAS FASTINGP ERFORMED BY: LEDA [facility] Uqtbcj8520 [facility] [id number] URINALYSIS (20998)Ordered By : Credentialing Coordinator on 09-16-2009 Appearance (U) Clear Normal Comprehens umer Internal Medicine Work Phone: Comment on above: PATIENT WAS FASTINGP ERFORMED BY: LEDA [facility] Mepzqr2439 [facility] [id number] Bilirubin Ql (U) Negative Normal Comprehe nsive Internal Medicine Work Phone: Comment on above: PATIENT WAS FASTINGP ERFORMED BY: LEDA Donatolin6[address] RoadDublin [place] [id number] Color (U) Yellow Normal [facility] Work Phone: Comment on above: PATIENT WAS FASTINGP ERFORMED BY: LEDA oDnatolin6[address] RoadDublin [place] [id number] Glucose Ql (U) Negative Normal Comprehens umer [facility] Medicine Work Phone: Comment on above: PATIENT WAS FASTINGP ERFORMED BY: LEDA Donatolin6[address]ublin [place] [id number] Hemoglobin Ql (U) Negative Normal Compreh ensive [facility] Work Phone: Comment on above: PATIENT WAS FASTINGP ERFORMED BY: LEDA Donatolin6[address]Dublin [place] [id number] Ketones Ql (U) Negative Normal Comprehens umer [facility] Work Phone: Comment on above: PATIENT WAS FASTINGP ERFORMED BY: LEDA Donatolin[address] [place] [id number] Leukocyte esterase Test strip Ql (U) 1+ Abnormal [facility] Work Phone: Comment on above: PATIENT WAS FASTINGP ERFORMED BY: LEDA Alston[address] [place] [id number] Microscopic observation LM Nom (Urine sed) See below: Normal [facility] Work Phone: Comment on above: PATIENT WAS FASTINGP ERFORMED BY: LEDA Donatolin[address]ublin [place] [id number] Nitrite Ql (U) Negative Normal Comprehens umer [facility] Work Phone: Comment on above: PATIENT WAS FASTINGP ERFORMED BY: LEDA Donatolin6[address]Dublin [place] [id number] pH (U) 5.5 [pH] Normal 5.0-7.5 [facility] Work Phone: Comment on above: PATIENT WAS FASTINGP ERFORMED BY: [facility]6370 [facility] [id number] Protein Ql (U) Negative Normal Comprehens umer [facility] Medicine Work Phone: Comment on above: PATIENT WAS FASTINGP ERFORMED BY: LEDA [facility]6370 [facility] [id number] Specific gravity (U) [Rel density] 1.023 1 Normal 1.005-1.03 0 [facility] Work Phone: Comment on above: PATIENT WAS FASTINGP ERFORMED BY: [facility]6370 [facility] [id number] Urobilinogen Test strip (U) [Mass/Vol] 0.2 mg/dL Normal 0.0-1.9 Comprehensi ve Internal Medicine Work Phone: Comment on above: PATIENT WAS FASTINGP ERFORMED BY: [facility]6370 [facility] [id number] VITAMIN B-12 (CYANOCOBALAMIN ) (56392)Ordered By: Credentialing Coordinator on 09-16-2009 Cobalamin (Vitamin B12) [Mass/Vol] 408 pg/mL Normal 211-911 [facility] Work Phone: Comment on above: Effective September, Vitamin B12 will bechanging to the [employer] ECLIA methodology. Thereference interval will be changing to:211 - 946 pg/mL PATIENT WAS FASTINGP ERFORMED BY: [facility]6370 [facility] [id number] Vital Signs Date Time Vital Sign Value Performing Clinician Facility 01-17-2025 16:21-0400 Body weight 96.2 kg ROSARIO WALTERS PENOLOGY TEACHER-MD ALLERGY IMMUNOLOGY [facility] 09-13-2024 16:23-0400 Diastolic Blood Pressure Non-Invasive 52 mm[Hg] ROSARIO WALTERS PENOLOGY TEACHER-MD ALLERGY IMMUNOLOGY [facility] 09-13-2024 16:23-0400 Systolic Blood Pressure Non-Invasive 137 mm[Hg] ROSARIO WALTERS PENOLOGY TEACHER-MD ALLERGY IMMUNOLOGY [facility] 06-15-2024 16:38-0500 Body weight 95.6 kg ROSARIO SELENA PENOLOGY TEACHER-MD ALLERGY IMMUNOLOGY [facility] 03-31-2024 17:18-0400 Diastolic Blood Pressure Non-Invasive 70 mm[Hg] HERB DERAS MD [facility] 03-31-2024 17:18-0400 Heart rate 74 /min HERB DERAS MD [facility] 03-31-2024 17:18-0400 Respiratory rate 18 /min HERB DERAS MD [facility] 03-31-2024 17:18-0400 Systolic Blood Pressure Non-Invasive 138 mm[Hg] HERB DERAS MD [facility] 03-31-2024 13:38-0400 Blood Pressure Location HERB DERAS MD [facility] 03-31-2024 13:38-0400 Blood Pressure Method HERB DERAS MD [facility] 03-31-2024 13:38-0400 Body temperature 97.7 [degF] HERB DERAS MD [facility] 03-31-2024 13:38-0400 Body weight 98.1 kg HERB DERAS MD [facility] 03-31-2024 13:38-0400 Diastolic Blood Pressure Non-Invasive 74 mm[Hg] HERB EDRAS MD [facility] 03-31-2024 13:38-0400 Heart rate 78 /min HERB DERAS MD [facility] 03-31-2024 13:38-0400 Respiratory rate 18 /min HERB DERAS MD [facility] 03-31-2024 13:38-0400 Systolic Blood Pressure Non-Invasive 147 mm[Hg] HERB DERAS MD [facility] 03-09-2024 16:10-0400 Body weight 98.5 kg ROSARIO WILKSMER PENOLOGY TEACHER-MD ALLERGY IMMUNOLOGY [facility] 03-09-2024 16:10-0400 Diastolic Blood Pressure Non-Invasive 66 mm[Hg] ROSARIO SELENA PENOLOGY TEACHER-MD ALLERGY IMMUNOLOGY [facility] 03-09-2024 16:10-0400 Systolic Blood Pressure Non-Invasive 141 mm[Hg] ROSARIO SELENA PENOLOGY TEACHER-MD ALLERGY IMMUNOLOGY [facility] 12-26-2022 16:52-0400 Body height 165 cm NATALIE FOX MD [facility] 12-26-2022 16:52-0400 Body temperature 98.24 [degF] NATALIE FOX MD [facility] 12-26-2022 16:52-0400 Body weight 95.5 kg NATALIE FOX MD [facility] 12-26-2022 16:52-0400 Diastolic Blood Pressure Non-Invasive 79 1 NATALIE FOX MD [facility] 12-26-2022 16:52-0400 Heart rate 93 /min NATALIE FOX MD [facility] 12-26-2022 16:52-0400 Respiratory rate 18 /min NATALIE FOX MD [facility] 12-26-2022 16:52-0400 Systolic Blood Pressure Non-Invasive 175 1 NATALIE FOX MD [facility] 04-23-2022 15:22-0400 Body height 162.56 cm ELEMENTARY TUTOR-C Rosario Walters ELEMENTARY TUTOR Work Phone: [facility] Work Phone: 04-23-2022 15:22-0400 Body mass index (BMI) [Ratio] 38.8 kg/m2 ELEMENTARY TUTOR-C Rosario Wilksmer ELEMENTARY TUTOR Work Phone: [facility] Work Phone: 04-23-2022 15:22-0400 Body weight 102.73 kg ELEMENTARY TUTOR-C Rosario Wilksmer ELEMENTARY TUTOR Work Phone: [facility] Work Phone: 04-23-2022 15:22-0400 Diastolic blood pressure 60 mm[Hg] ELEMENTARY TUTOR-C Rosario Selena ELEMENTARY TUTOR Work Phone: [facility] Work Phone: 04-23-2022 15:22-0400 Heart rate 96 /min ELEMENTARY TUTOR-C Rosario Selena ELEMENTARY TUTOR Work Phone: [facility] Work Phone: 04-23-2022 15:22-0400 Respiratory rate 16 /min ELEMENTARY TUTOR-C Rosario Sugden ELEMENTARY TUTOR Work Phone: [facility] Work Phone: 04-23-2022 15:22-0400 Systolic blood pressure 140 mm[Hg] ELEMENTARY TUTOR-C Rosario Sugden ELEMENTARY TUTOR Work Phone: [facility] Work Phone: 06-11-2021 12:33-0500 Diastolic blood pressure 64 mm[Hg] DR MAXIMUS GONZÁLES MD [facility] 06-11-2021 12:33-0500 Systolic blood pressure 99 mm[Hg] DR MAXIMUS GONZÁLES MD [facility] 06-11-2021 11:05-0500 Body temperature 98.6 [degF] DR MAXIMUS GONZÁLES MD [facility] 06-11-2021 11:05-0500 Diastolic blood pressure 52 mm[Hg] DR MAXIMUS GONZÁLES MD [facility] 06-11-2021 11:05-0500 Heart rate 88 /min DR MAXIMUS GONZÁLES MD [facility] 06-11-2021 11:05-0500 Mean blood pressure 63 mm[Hg] DR MAXIMUS GONZÁLES MD [facility] 06-11-2021 11:05-0500 Reason For Taking VItal Signs DR MAXIMUS GONZÁLES MD [facility] 06-11-2021 11:05-0500 Respiratory rate 16 /min DR MAXIMUS GONZÁLES MD [facility] 06-11-2021 11:05-0500 Systolic blood pressure 86 mm[Hg] DR MAXIMUS GONZÁLES MD [facility] 06-11-2021 07:20-0500 Body temperature 98.06 [degF] DR AMXIMUS GONZÁLES MD [facility] 06-11-2021 07:20-0500 Diastolic blood pressure 64 mm[Hg] DR MAXIMUS GONZÁLES MD [facility] 06-11-2021 07:20-0500 Heart rate 83 /min DR MAXIMUS GONZÁLES MD [facility] 06-11-2021 07:20-0500 Mean blood pressure 79 mm[Hg] DR MAXIMUS GONZÁLES MD [facility] 06-11-2021 07:20-0500 Reason For Taking VItal Signs DR MAXIMUS GONZÁLES MD [facility] 06-11-2021 07:20-0500 Respiratory rate 16 /min DR MAXIMUS GONZÁLES MD [facility] 06-11-2021 07:20-0500 Systolic blood pressure 109 mm[Hg] DR MAXIMUS GONZÁLES MD [facility] 06-11-2021 04:01-0500 Body temperature 98.06 [degF] DR MAXIMUS GONZÁLES MD [facility] 06-11-2021 04:01-0500 Heart rate 82 /min DR MAXIMUS GONZÁLES MD [facility] 06-11-2021 04:01-0500 Mean blood pressure 69 mm[Hg] DR MAXIMUS GONZÁLES MD [facility] 06-11-2021 04:01-0500 Reason For Taking VItal Signs DR MAXIMUS GONZÁLES MD [facility] 06-11-2021 04:01-0500 Respiratory rate 16 /min DR MAXIMUS GONZÁLES MD [facility] 06-11-2021 00:47-0500 Heart rate 84 /min DR MAXIMUS GONZÁLES MD [facility] 06-10-2021 13:32-0500 Body height 162.[address] MAXIMUS GONZÁLES MD [facility] 06-10-2021 13:32-0500 Body weight [address] MAXIMUS GONZÁLES MD [facility] 06-10-2021 13:32-0500 Body weight 37.84 kg/m2 DR MAXIMUS GONZÁLES MD [facility] 06-10-2021 12:51-0500 Diastolic Blood Pressure NBP [address] MAXIMUS GONZÁLES MD [facility] 06-10-2021 12:51-0500 Systolic Blood Pressure NBP [address] MAXIMUS GONZÁLES MD [facility] 06-10-2021 12:26-0500 Diastolic Blood Pressure NBP [address] MAXIMUS GONZÁLES MD [facility] 06-10-2021 12:26-0500 Systolic Blood Pressure NBP [address] MAXIMUS GONZÁLES MD [facility] 06-10-2021 12:23-0500 Diastolic Blood Pressure NBP [address] MAXIMUS GONZÁLES MD [facility] 06-10-2021 12:23-0500 Systolic Blood Pressure NBP [address] MAXIMUS GONZÁLES MD [facility] 06-10-2021 11:49-0500 Body temperature 96.98 [degF] DR MAXIMUS GONZÁLES MD [facility] 06-10-2021 11:30-0500 Body temperature 96.8 [degF] DR MAXIMUS GONZÁLES MD [facility] 06-10-2021 11:15-0500 Body temperature 96.8 [degF] DR MAXIMUS GONZÁLES MD [facility] 06-10-2021 09:33-0500 Heart rate 94 /min DR MAXIMUS GONZÁLES MD [facility] 06-10-2021 09:27-0500 Heart rate 94 /min DR MAXIMUS GONZÁLES MD [facility] 06-10-2021 08:03-0500 Body height 162.[address] MAXIMUS GONZÁLES MD [facility] 06-10-2021 08:03-0500 Body temperature 98.24 [degF] DR MAXIMUS GONZÁLES MD [facility] 06-10-2021 08:03-0500 Body weight [address] MAXIMUS GONZÁLES MD [facility] 06-10-2021 08:03-0500 Heart rate 107 /min DR MAXIMUS GONZÁLES MD [facility] 05-28-2021 11:18-0500 Body height 162.[address] MAXIMUS GONZÁLES MD [facility] 05-28-2021 11:18-0500 Body weight [address] MAXIMUS GONZÁLES MD [facility] 04-24-2019 14:05-0400 BMI (Body Mass Index) 39.8 kg/m2 [facility] Work Phone: 04-24-2019 14:05-0400 Body Temperature 97.6 [degF] [facility] Internal Medicine Work Phone: Comment on above: Method: Temporal 04-24-2019 14:05-0400 Body weight 104.35 kg [facility] Internal Medicine Work Phone: 04-24-2019 14:05-0400 BP Diastolic 78 mm[Hg] Jael [facility] Internal Medicine Work Phone: Comment on above: Patient Position: Sitting; Cuff Location : Left Arm; Cuff Size: Standard 04-24-2019 14:05-0400 BP Systolic 138 mm[Hg] [facility] Work Phone: Comment on above: Patient Position: Sitting; Cuff Location : Left Arm; Cuff Size: Standard 04-24-2019 14:05-0400 BSA (Body Surface Area) 2.07 m2 Jael Chapa Internal Medicine Work Phone: 04-24-2019 14:05-0400 Height 161.93 cm Jael Dietz [facility] Internal Medicine Work Phone: 04-24-2019 14:05-0400 Pulse (Heart Rate) 100 /min Jael Dietz [facility] Internal Medicine Work Phone: Comment on above: Pattern: Regular 04-24-2019 14:05-0400 Pulse Oximetry 95 % Jael Dietz [facility] Internal Medicine Work Phone: Comment on above: Room air 04-24-2019 14:05-0400 Respiratory Rate 19 /min Jael Dietz [facility] Internal Medicine Work Phone: Comment on above: Pattern: Unlabored 03-27-2013 13:06-0400 BMI (Body Mass Index) 37.55 kg/m2 Jael Dietz [facility] Internal Medicine Work Phone: 03-27-2013 13:06-0400 Body Temperature 97.6 [degF] Jael Dietz [facility] Internal Medicine Work Phone: Comment on above: Method: Oral 03-27-2013 13:06-0400 Body weight 96.16 kg Jael Dietz [facility] Internal Medicine Work Phone: 03-27-2013 13:06-0400 BP Diastolic 80 mm[Hg] Jael Dietz [facility] Internal Medicine Work Phone: Comment on above: Patient Position: Sitting; Cuff Location : Left Arm; Cuff Size: Standard 03-27-2013 13:06-0400 BP Systolic 120 mm[Hg] Jael Dietz [facility] Internal Medicine Work Phone: Comment on above: Patient Position: Sitting; Cuff Location : Left Arm; Cuff Size: Standard 03-27-2013 13:06-0400 BSA (Body Surface Area) 1.98 m2 Jael Dietz [facility] Internal Medicine Work Phone: 03-27-2013 13:06-0400 Height 160.02 cm Jael Dietz [facility] Internal Medicine Work Phone: 03-27-2013 13:06-0400 Pulse (Heart Rate) 74 /min Jael Dietz [facility] Internal Medicine Work Phone: Comment on above: Pattern: Regular 03-27-2013 13:06-0400 Respiratory Rate 20 /min Jael Dietz [facility] Internal Medicine Work Phone: Comment on above: Pattern: Unlabored 02-15-2012 08:08-0400 BMI (Body Mass Index) 35.44 kg/m2 Jael Dietz [facility] Internal Medicine Work Phone: 02-15-2012 08:08-0400 Body Temperature 98 [degF] Jael Dietz [facility] Internal Medicine Work Phone: Comment on above: Method: Oral 02-15-2012 08:08-0400 Body weight 90.75 kg Jael Dietz [facility] Internal Medicine Work Phone: 02-15-2012 08:08-0400 BP Diastolic 80 mm[Hg] Jael Dietz [facility] Internal Medicine Work Phone: Comment on above: Patient Position: Sitting; Cuff Location : Left Arm; Cuff Size: Standard 02-15-2012 08:08-0400 BP Systolic 132 mm[Hg] Jael Dietz [facility] Internal Medicine Work Phone: Comment on above: Patient Position: Sitting; Cuff Location : Left Arm; Cuff Size: Standard 02-15-2012 08:08-0400 BSA (Body Surface Area) 1.93 m2 Jael Dietz [facility] Internal Medicine Work Phone: 02-15-2012 08:08-0400 Height 160.02 cm Jael Dietz [facility] Internal Medicine Work Phone: 02-15-2012 08:08-0400 Pulse (Heart Rate) 82 /min Jael Dietz [facility] Internal Medicine Work Phone: Comment on above: Pattern: Regular 02-15-2012 08:08-0400 Respiratory Rate 18 /min Jael Dietz [facility] Internal Medicine Work Phone: 11-04-2011 10:43-0400 Body Temperature 98.6 [degF] Jael Dietz [facility] Internal Medicine Work Phone: 11-04-2011 10:43-0400 BP Diastolic 80 mm[Hg] Jael Dietz [facility] Internal Medicine Work Phone: Comment on above: Patient Position: Sitting; Cuff Location : Left Arm; Cuff Size: Large 11-04-2011 10:43-0400 BP Systolic 116 mm[Hg] Jael Dietz [facility] Internal Medicine Work Phone: Comment on above: Patient Position: Sitting; Cuff Location : Left Arm; Cuff Size: Large 11-04-2011 10:43-0400 Pulse (Heart Rate) 96 /min Jael Dietz [facility] Internal Medicine Work Phone: Comment on above: Pattern: Regular 11-04-2011 10:43-0400 Respiratory Rate 18 /min Jael Dietz [facility] Internal Medicine Work Phone: Comment on above: Pattern: Unlabored 07-04-2010 14:17-0500 Body Temperature 97.7 [degF] Jael Dietz [facility] Internal Medicine Work Phone: Comment on above: Method: Oral 07-04-2010 14:17-0500 Body weight 90.75 kg Jael Dietz [facility] Internal Medicine Work Phone: 07-04-2010 14:17-0500 BP Diastolic 74 mm[Hg] Jael Dietz [facility] Internal Medicine Work Phone: Comment on above: Patient Position: Sitting; Cuff Location : Left Arm; Cuff Size: Standard 07-04-2010 14:17-0500 BP Systolic 128 mm[Hg] Jael Dietz [facility] Internal Medicine Work Phone: Comment on above: Patient Position: Sitting; Cuff Location : Left Arm; Cuff Size: Standard 07-04-2010 14:17-0500 Pulse (Heart Rate) 82 /min Jael Dietz [facility] Internal Medicine Work Phone: Comment on above: Pattern: Regular 07-04-2010 14:17-0500 Respiratory Rate 18 /min [facility] Work Phone: Comment on above: Pattern: Unlabored 10-16-2009 15:38-0400 Body Temperature 98.2 [degF] Jael Dietz [facility] Internal Medicine Work Phone: Comment on above: Method: Oral 10-16-2009 15:38-0400 Body weight 90.75 kg Jael Dietz [facility] Internal Medicine Work Phone: 10-16-2009 15:38-0400 BP Diastolic 74 mm[Hg] Jael Dietz [facility] Internal Medicine Work Phone: Comment on above: Patient Position: Sitting; Cuff Location : Left Arm; Cuff Size: Standard 10-16-2009 15:38-0400 BP Systolic 134 mm[Hg] Jael Dietz [facility] Internal Medicine Work Phone: Comment on above: Patient Position: Sitting; Cuff Location : Left Arm; Cuff Size: Standard 10-16-2009 15:38-0400 Pulse (Heart Rate) 86 /min Jael Dietz [facility] Internal Medicine Work Phone: Comment on above: Pattern: Regular 10-16-2009 15:38-0400 Respiratory Rate 17 /min Jael Dietz [facility] Internal Medicine Work Phone: Comment on above: Pattern: Unlabored 09-20-2009 10:37-0400 Body Temperature 97.8 [degF] Jael Dietz [facility] Internal Medicine Work Phone: Comment on above: Method: Oral 09-20-2009 10:37-0400 BP Diastolic 68 mm[Hg] [facility] Work Phone: Comment on above: Patient Position: Sitting; Cuff Location : Left Arm; Cuff Size: Standard 09-20-2009 10:37-0400 BP Systolic 126 mm[Hg] Jael Dietz [facility] Internal Medicine Work Phone: Comment on above: Patient Position: Sitting; Cuff Location : Left Arm; Cuff Size: Standard 09-20-2009 10:37-0400 Pulse (Heart Rate) 88 /min [facility] Work Phone: Comment on above: Pattern: Regular 09-20-2009 10:37-0400 Respiratory Rate 17 /min J[facility] Work Phone: Comment on above: Pattern: Unlabored 09-16-2009 10:20-0400 BP Diastolic 64 mm[Hg] Jael Dietz [facility] Internal Medicine Work Phone: Comment on above: Patient Position: Sitting; Cuff Location : Left Arm; Cuff Size: Large 09-16-2009 10:20-0400 BP Systolic 112 mm[Hg] Jael Dietz [facility] Internal Medicine Work Phone: Comment on above: Patient Position: Sitting; Cuff Location : Left Arm; Cuff Size: Large 09-16-2009 10:20-0400 Pulse (Heart Rate) 100 /min Jael Dietz [facility] Internal Medicine Work Phone: Comment on above: Pattern: Regular 09-16-2009 10:20-0400 Respiratory Rate 16 /min Jael Dietz [facility] Internal Medicine Work Phone: Comment on above: Pattern: Unlabored Encounters Encounter Date Encounter Type Care Provider Facility Start: 05-02-2025 End: 05-06-2025 ambulatory ROSARIO WALTERS [facility] Start: 05-02-2025 End: 05-06-2025 Outreach Lab ROSARIO WALTERS PENOLOGY TEACHER-MD ALLERGY IMMUNOLOGY [facility] Start: 04-27-2025 End: 04-27-2025 ambulatory ROSARIO WALTERS Facility[facility] Start: 04-27-2025 End: 04-27-2025 Patient encounter procedure ROSARIO WALTERS PENOLOGY TEACHER-MD ALLERGY IMMUNOLOGY [facility] Start: 04-25-2025 End: 04-29-2025 ambulatory ROSARIO WALTERS Facility[facility] Start: 04-25-2025 End: 04-29-2025 Outreach Lab ROSARIO WALTERS PENOLOGY TEACHER-MD ALLERGY IMMUNOLOGY [facility] Start: 04-20-2025 End: 04-20-2025 ambulatory Rosario Walters ELEMENTARY TUTOR [place] Start: 04-18-2025 ambulatory ROSARIO WALTERS Facility :[facility] Start: 03-17-2025 End: 03-17-2025 ambulatory CHUY MATHEWAMANDEEPDEON PENOLOGY TEACHER-MD ALLERGY IMMUNOLOGY Facility:[facility] Start: 03-17-2025 End: 03-17-2025 Patient encounter procedure CHUY DE LA PAZ PENOLOGY TEACHER-MD ALLERGY IMMUNOLOGY [facility] Start: 01-31-2025 End: 01-31-2025 ambulatory MARA DYLAN PENOLOGY TEACHER-MD ALLERGY IMMUNOLOGY Facility:[facility] Start: 01-31-2025 End: 01-31-2025 Patient encounter procedure MARA RICHARDSON PENOLOGY TEACHER-MD ALLERGY IMMUNOLOGY [facility] Start: 01-29-2025 End: 01-29-2025 Emergency department patient visit JANES ESTRADA [facility] Start: 01-26-2025 End: 01-28-2025 ambulatory ILEANA GILBERT MD Facility:[facility] Start: 01-26-2025 End: 01-28-2025 Observation ILEANA GILBERT MD [facility] Start: 01-23-2025 End: 01-23-2025 Admission to establishment ILEANA GILBERT MD [facility] Start: 01-23-2025 End: 01-23-2025 ambulatory ROSARIO WALTERS PENOLOGY TEACHER-MD ALLERGY IMMUNOLOGY Facility:[facility] Start: 01-19-2025 End: 01-19-2025 ambulatory MARA CEJEANNIE PENOLOGY TEACHER-MD ALLERGY IMMUNOLOGY Facility:[facility] Start: 01-19-2025 End: 01-19-2025 Patient encounter procedure MARA RICHARDSON PENOLOGY TEACHER-MD ALLERGY IMMUNOLOGY [facility] Start: 01-18-2025 ambulatory ROSARIO WALTERS Facility :[facility] Start: 01-18-2025 ambulatory ROSARIO WALTERS Facility :[facility] Start: 01-17-2025 End: 04-18-2025 ambulatory ROSARIO WALTERS [facility] Start: 01-17-2025 End: 04-18-2025 OTHER THERAPY ROSARIOJACOB WILKSMER PENOLOGY TEACHER-MD ALLERGY IMMUNOLOGY [facility] Start: 12-28-2024 End: 12-28-2024 ambulatory ROSARIO WALTERS Facility[facility] Start: 12-28-2024 End: 12-28-2024 Patient encounter procedure ILEANA GILBERT MD [facility] Start: 12-21-2024 End: 12-21-2024 ambulatory ILEANA GILBERT MD Facility[facility] Start: 12-21-2024 End: 12-21-2024 Patient encounter procedure ILEANA GILBERT MD [facility] Start: 11-08-2024 ambulatory Zeinab Abel Facility :[facility] Start: 11-08-2024 End: 11-08-2024 ambulatory Zeinab Abel Facility:[facility] Start: 09-12-2024 End: 09-12-2024 ambulatory ROSARIO WALTERS Facility[facility] Start: 08-25-2024 End: 08-25-2024 ambulatory ROSARIO WALTERS [facility] Start: 08-25-2024 End: 08-25-[address] SOY CRUMP MD [facility] Start: 08-16-2024 End: 08-16-2024 ambulatory AIDAN NASH Facility:[facility] Start: 08-16-2024 End: 08-16-2024 ambulatory AIDAN ANSH Facility:[facility] Start: 08-16-2024 End: 08-16-2024 Subsequent hospital visit by physician Naomi [facility] (I-Stat) Work Phone: Cat Scan Comment on above: Gross hematuria [R31 .0] Start: 07-22-2024 End: 07-22-2024 ambulatory ROSARIO SELENA [facility] Start: 07-22-2024 End: 07-22-2024 Patient encounter procedure ROSARIO WALTERS PENOLOGY TEACHER-MD ALLERGY IMMUNOLOGY [facility] Start: 07-06-2024 ambulatory Aidan Nash Faci lity:[facility] Start: 05-22-2024 End: 05-22-2024 ambulatory ROSARIO WALTERS [facility] Start: 05-22-2024 End: 05-22-[address] SOY CRUMP MD [facility] Start: 05-22-2024 End: 05-22-2024 ambulatory Rosario Walters ELEMENTARY TUTOR Facility:[facility] Start: 05-01-2024 ambulatory Rosario Walters ELEMENTARY TUTOR Facil ity:[facility] Start: 04-06-2024 End: 04-10-2024 Outreach Lab ROSARIO WALTERS PENOLOGY TEACHER-MD ALLERGY IMMUNOLOGY [facility] Start: 03-31-2024 End: 03-31-2024 Emergency department patient visit HERB DERAS MD [facility] Start: 03-08-2024 End: 03-08-2024 ambulatory ROSARIO WALTERS Facility:[facility] Start: 03-08-2024 End: 03-08-2024 Subsequent hospital visit by physician Mri [facility] (I-Stat/1.5t) Work Phone: Radiology Start: 02-07-2024 ambulatory ROSARIO WILKSM ER PENOLOGY TEACHER-MD ALLERGY IMMUNOLOGY Facility:[facility] Start: 12-02-2023 ambulatory ROSARIO WILKSM ER PENOLOGY TEACHER-MD ALLERGY IMMUNOLOGY Facility:[facility] Start: 12-02-2023 End: 12-02-2023 ambulatory SYLVIE FUNES MD Facility:[facility] Start: 12-02-2023 End: 12-02-[address] DAVID NOVAK MD [facility] Start: 11-12-2023 End: 11-12-2023 ambulatory ROSARIOJACOB WALTERS PENOLOGY TEACHER-MD ALLERGY IMMUNOLOGY Facility:[facility] Start: 11-09-2023 End: 11-09-2023 ambulatory ROSARIOJACOB WALTERS PENOLOGY TEACHER-MD ALLERGY IMMUNOLOGY Facility:[facility] Start: 11-09-2023 End: 11-09-2023 Patient encounter procedure ROSARIO Case WALTERS PENOLOGY TEACHER-MD ALLERGY IMMUNOLOGY [facility] Start: 09-13-2023 End: 09-13-2023 ambulatory SYLVIE FUNES MD Facility:[facility] Start: 09-13-2023 End: 09-13-2023 Patient encounter procedure SYLVIE FUNES MD [facility] Start: 09-10-2023 End: 09-10-2023 ambulatory SYLVIE FUNES MD Facility:[facility] Start: 09-10-2023 End: 09-10-2023 Patient encounter procedure SYLVIE FUNES MD [facility] Start: 05-26-2023 End: 05-26-2023 ambulatory SYLVIE FUNES MD Facility:[facility] Start: 05-26-2023 End: 05-26-2023 Patient encounter procedure SYLVIE FUNES MD [facility] Start: 05-18-2023 End: 05-22-2023 ambulatory ROSARIO WALTERS PENOLOGY TEACHER-MD ALLERGY IMMUNOLOGY Facility:[facility] Start: 05-18-2023 End: 05-22-2023 Outreach Lab ROSARIO Willoughby SELENA PENOLOGY TEACHER-MD ALLERGY IMMUNOLOGY [facility] Start: 04-30-2023 End: 04-30-2023 ambulatory ROSARIO WALTERS PENOLOGY TEACHER-MD ALLERGY IMMUNOLOGY Facility:[facility] Start: 03-26-2023 End: 03-26-2023 ambulatory ROSARIO WALTERS PENOLOGY TEACHER-MD ALLERGY IMMUNOLOGY Facility:[facility] Start: 03-26-2023 End: 03-26-2023 Patient encounter procedure ROSARIO WALTERS PENOLOGY TEACHER-MD ALLERGY IMMUNOLOGY [facility] Start: 03-09-2023 End: 03-13-2023 ambulatory ROSARIO WALTERS PENOLOGY TEACHER-MD ALLERGY IMMUNOLOGY Facility:[facility] Start: 12-26-2022 End: 12-26-2022 Emergency department patient visit NATALIE FOX MD [facility] Start: 06-17-2022 Non-patient / Non-visit ELEMENTARY TUTOR-C Henrik Walters ELEMENTARY TUTOR Work Phone: [facility] Start: 06-17-2022 Non-patient / Non-visit ELEMENTARY TUTOR-C Henrik Walters ELEMENTARY TUTOR Work Phone: [facility] Start: 06-17-2022 End: 06-17-2022 ambulatory ELEMENTARY TUTOR-C Rosario Walters ELEMENTARY TUTOR Work Phone: [facility] Work Phone: Start: 06-17-2022 End: 06-17-2022 Patient encounter procedure ELEMENTARY TUTOR-C Rosario Walters ELEMENTARY TUTOR Work Phone: [facility] Start: 04-23-2022 End: 04-23-2022 Patient encounter procedure ELEMENTARY TUTOR-C Rosario Walters ELEMENTARY TUTOR Work Phone: [facility] Start: 04-15-2022 Non-patient / Non-visit ELEMENTARY TUTOR-C Henrik Walters ELEMENTARY TUTOR Work Phone: [facility] Start: 12-22-2021 End: 12-22-2021 Patient encounter procedure TONA ESCOBAR PENOLOGY TEACHER-MD ALLERGY IMMUNOLOGY [facility] Start: 12-08-2021 End: 12-08-2021 Patient encounter procedure TONA ESCOBAR PENOLOGY TEACHER-MD ALLERGY IMMUNOLOGY [facility] Start: 06-12-2021 End: 10-03-2021 Physical therapy management TONA GONZALEZ PA-C [facility] Start: 06-10-2021 End: 06-11-[address] MAXIMUS GONZÁLES MD [facility] Start: 05-28-2021 End: 05-28-[address] MAXIMUS GONZÁLES MD [facility] Start: 05-28-2021 End: 05-28-[address] MAXIMUS GONZÁLES MD [facility] Start: 04-24-2019 End: 04-24-2019 Office outpatient visit 10 minutes Jael Chapa Internal Medicine Start: 12-28-2017 Evaluation and management of inpatient Jacoby Mcrae Facility:[facility] Start: 04-26-2014 End: 04-27-2014 Ambulatory ROMULO STEWART Facility:[facility] Start: 03-27-2013 End: 03-27-2013 Patient encounter procedure [facility] Start: 02-15-2012 End: 02-15-2012 Office outpatient visit 15 minutes [facility] Start: 11-04-2011 End: 11-05-2011 Patient encounter procedure [facility] Start: 07-04-2010 End: 07-15-2010 Error Encounter [facility] Start: 07-04-2010 End: 07-04-2010 Office outpatient visit 25 minutes [facility] Start: 10-16-2009 End: 10-16-2009 Office outpatient visit 25 minutes [facility] Start: 10-03-2009 End: 10-03-2009 Historical Summary Jael Dietz [facility] Start: 09-20-2009 End: 09-20-2009 [facility] Start: 09-16-2009 End: 09-16-2009 Office outpatient new 30 minutes [facility] Internal [facility] Procedures Date Procedure Procedure Detail Performing Clinician Start: 01-26-2025 Cholecystectomy ILEANA GILBERT MD Comment on above: ROBOTIC CHOLECYSTECTOMY Start: 10-26-2024 Decompression of median nerve ILEANA WINN MD Start: 06-28-2024 Esophagogastroduodenoscopy ILEANA GILBERT MD Start: 06-17-2022 Cardiovascular stress test using pharmacologic stress agent ELEMENTARY TUTOR-Sarai Walters ELEMENTARY TUTOR Work Phone: Start: 06-10-[address] MAXIMUS GONZÁLES MD Comment on above: right Start: 12-28-2017 Cardiac catheterization ROSARIO WALTERS PENOLOGY TEACHER-MD ALLERGY IMMUNOLOGY Comment on above: [facility]: 2 vessel [place]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 50% proximal OM1 stenosis. 90% proximal followed by 99% distal RCA. Patent ARMSTRONG to mid LAD. Patent SVG to OM! & OM2. Patent SVG to posterior descending & posterolateral branches. Nomral LV end diastolic pressure 17 mmHg. Start: 09-27-2015 History of coronary artery bypass grafting Aortocoronary bypass status ELEMENTARY TUTOR-Sarai Walters ELEMENTARY TUTOR Work Phone: Start: 07-29-2015 Coronary artery bypass grafts x 5 LEIF WALTERS PENOLOGY TEACHER-MD ALLERGY IMMUNOLOGY Comment on above: Affinity- X's 5 Start: [...] Start: 08-16-2027 Diabetes Screening Diabetes Screenin g [facility] Start: 05-26-2025 Screening for malign ant neoplasm of colon [facility] Start: 02-27-2024 Covid-19 Vaccine ( season) Covid-19 Vaccine ( season) [facility] Start: 02-27-2024 Covid-19 Vaccine ( season) Covid-19 Vaccine ( season) [facility] Start: 02-27-2024 Influenza vaccination Influenza Vacc ine (#1) [facility] Start: 04-24-2019 Procedure Education Eprescribe d prescriptions (G1953) [facility] Work Phone: Start: 04-24-2019 Provider Instruction s for Treatment Follow up if no improvement or if symptoms worsen [facility] Work Phone: Start: 10-08-2015 Pneumococcal Vaccine : 50+ (1 of 1 - PCV) Pneumococcal Vaccine: 50+ (1 of 1 - PCV) [facility] Start: 10-08-2015 Shingrix Vaccine (1 of 2) Shingrix Vaccine (1 of 2) [facility] Start: 08-22-2013 Lipid panel Lipid Screening [facility] Start: 03-27-2013 Patient Education [facility] Work Phone: Start: 03-27-2013 Lipid panel Comprehens [facility]er Internal Medicine Work Phone: Start: 03-27-2013 Comprehensive metabo lic panel METABOLIC PANEL, COMPREHENSIVE (92446) [facility] Work Phone: Start: 03-27-2013 Blood count manual c ell count each CBC WITH MANUAL DIFF (00836) [facility] Work Phone: Start: 11-04-2011 Patient Education Low Back Opal n Exercises *: low back pain [facility] Work Phone: Start: 08-22-2011 Diabetes Screening Diabetes Screenin g [facility] Start: 2010 Screening for malign ant neoplasm of colon [facility] Start: 07-04-2010 Provider Instruction s for Treatment [facility] Work Phone: Start: 11-06-2009 Screening for malign ant neoplasm of breast Mammogram Screening [facility] Start: 09-20-2009 Provider Instruction s for Treatment FOLLOW UP IN 3 MONTHS [facility] Work Phone: Start: 09-20-2009 Hepatic function panel HEPATIC FUNCTION PANEL (42920) [facility] Work Phone: Comment on above: due in november Start: 09-20-2009 Lipid panel Lipid Panel (77127) [facility] Work Phone: Comment on above: fasting november Start: 09-20-2009 25 hydroxy includes fractions if performed CALCIFEDIOL (35036) [facility] Work Phone: Comment on above: repeat after done wi th perscription Vit D Start: 09-16-2009 Provider Instruction s for Treatment [facility] Work Phone: Start: 09-16-2009 TSH Qn TSH (THYROID STIMULATING HORMONE) (97259) [facility] Work Phone: Start: 1986 Screening for malign ant neoplasm of cervix Cervical Cancer Screening [facility] Start: 1984 Hepatitis B Vaccine (1 of 3 - 19+ 3-dose series) Hepatitis B Vaccine (1 of 3 - 19+ 3-dose series) [facility] Start: 1984 Urine microalbumin profile DTaP,Tdap,Td Vaccine (1 - Tdap) [facility] Start: 10-08-1983 Anxiety Screening Anxiety Screening [facility] Start: 10-08-1983 Depression Screening Depression Scre ening [facility] Start: 10-08-1983 Hepatitis C screening Hepatitis C Sc reening [facility] Start: 10-08-1983 HIV screening HIV Screening [facility] Lipid 1996 panel - Serum or Plasma [facility] Work Phone: [facility] Work Phone: [facility] Work Phone: [facility] Work Phone: [facility] Work Phone[facility] Work Phone: [facility] Work Phone: [facility] Work Phone: Immunizations Immunization Date Immunization Notes Care Provider Fa cility 05-02-2025 SARS-CoV-2 (COVID-19 ) [id number] ROSARIO WATLERS PENOLOGY TEACHER-MD ALLERGY IMMUNOLOGY [facility] 04-25-2025 zoster vaccine recombinant; Translations: [Shingrix] ROSARIO SELENA PENOLOGY TEACHER-MD ALLERGY IMMUNOLOGY [facility] 04-25-2025 influenza, injectabl e, quadrivalent, contains preservative; Translations: [Fluarix PF Prefilled Syringe ] ROSARIO WALTERS PENOLOGY TEACHER-MD ALLERGY IMMUNOLOGY [facility] 02-14-2022 SARS-CoV-2 mRNA (uoovflpiysv-hvkn-ehbqo se) vaccine ROSARIO SELENA PENOLOGY TEACHER-MD ALLERGY IMMUNOLOGY [facility] 05-21-2021 SARS-CoV-2 mRNA (tozinameran) vaccine TONA ESCOBAR PENOLOGY TEACHER-MD ALLERGY IMMUNOLOGY [facility] 10-03-2020 SARS-CoV-2 mRNA (tozinameran) vaccine TONA ESCOBAR PENOLOGY TEACHER-MD ALLERGY IMMUNOLOGY [facility] 09-12-2020 SARS-CoV-2 mRNA (tozinameran) vaccine TONA ESCOBAR PENOLOGY TEACHER-MD ALLERGY IMMUNOLOGY [facility] Comment on above: Result Comment: 2021: [id number] Payers Date Payer Category Payer Private Health Insurance [id number] 2024 Self-pay [id number] 2019 [facility] FEP PPO [id number] 2019 Unknown 2019 Unknown [id number] 2016 Unknown [id number] 1965 Unknown [id number] 2.16.840.1.259383.3.579. 2. 1965 Unknown [id number] 2.16.840.1.888605.3.579. 2. 1965 Unknown [id number] 2.16.840.1.799857.3.579. 2. 1965 Unknown [id number] 2.16.840.1.831795.3.579. 2. 1965 Unknown [id number] 2.16.840.1.920531.3.579. 2. 1965 Unknown [id number] 2.16.840.1.992868.3.579. 2. 1965 Unknown [id number] 2.16.840.1.386368.3.579. 2. 1965 Unknown [id number] 2.16.840.1.549686.3.579. 2. 1965 Unknown [id number] 2.16.840.1.111032.3.579. 2. 1965 Unknown [id number] 2.16.840.1.202217.3.579. 2. 1965 Unknown [id number] 2.16.840.1.778719.3.579. 2. 1965 Unknown [id number] 2.16.840.1.094553.3.579. 2. 1965 Unknown [id number] 2.16.840.1.362181.3.579. 2. 1965 Unknown [id number] 2.16.840.1.556397.3.579. 2. 1965 Unknown [id number] 2.16.840.1.147148.3.579. 2. 1965 Unknown [id number] 2.16.840.1.548975.3.579. 2. 1965 Unknown [id number] 2.16.840.1.632613.3.579. 2 1965 Unknown [id number] 2.16.840.1.153552.3.579. 2. 1965 Unknown [id number] 2.16.840.1.566699.3.579. 2 1965 Unknown [id number] 2.16.840.1.506502.3.579. 2 1965 Unknown [id number] 2.16.840.1.007374.3.579. 2 1965 Unknown [id number] 2.16.840.1.632095.3.579. 2. 1965 Unknown [id number] 2.16.840.1.413856.3.579. 2. 1965 Unknown [id number] 2.16.840.1.373175.3.579. 2. 1965 Unknown [id number] 2.16.840.1.530491.3.579. 2 1965 Unknown [id number] 2.16.840.1.183495.3.579. 2 1965 Unknown [id number] 2.16.840.1.832734.3.579. 2. 1965 Unknown [id number] 2.16.840.1.332013.3.579. 2. 1965 Unknown [id number] 2.16.840.1.294009.3.579. 2. 1965 Unknown [id number] 2.16.840.1.262830.3.579. 2. 1965 Unknown [id number] 2.16.840.1.037263.3.579. 2. 1965 Unknown [id number] 2.16.840.1.762900.3.579. 2. 1965 Unknown [id number] 2.16.840.1.056333.3.579. 2. 1965 Unknown [id number] 2.16.840.1.090399.3.579. 2.627 Unknown [id number] 2.16.840.1.014422.3.579. 2.462 Unknown [id number] 2.16.840.1.401003.3.579. 2.462 Unknown [id number] 2.16.840.1.799481.3.579. 2.462 Unknown [id number] 2.16.840.1.274777.3.579. 2.462 Unknown [id number] 2.16.840.1.878040.3.579. 2.462 Unknown [id number] 2.16.840.1.459649.3.579. 2.462 Social History Date Type Detail Facility Current Work/Study Status: Current Work/Study Status: [facility] Work Phone: Comment on above: [place] Exercise History: Exercise History: Compr e[facility]ive Internal Medicine Work Phone: Start: 08-22-2008 End: 08-03-2024 Living Situation Living Situation [facility] Work Phone: Comment on above: Single, Heterosexual Tobacco Use: Tobacco Use: [facility] Work Phone: Start: 05-10-2019 End: 04-25-2025 Ex-smoker (finding) [facility] Comment on above: daily sister smokes out of doors quit in 2018 Start: 1965 Sex Assigned At Female A [facility] Start: 04-23-2022 [facility] Work Phone: Start: 12-08-2017 None [facility] Work Phone: Start: 12-08-2017 With Family [facility] Work Phone: Start: 06-03-2020 Non-smoker [facility] Work Phone: Start: 08-22-2008 [facility] History of tobacco use [facility]igarette [facility] Start: 12-07-2008 Alcoholic beverage intake Current non-drinker of alcohol (finding) [facility] Start: 1965 Sex assigned at Not on file [facility] Start: 08-03-2024 Gender identity Not on file [facility] Sexual Orientation [facility] Start: 12-21-2018 Sex Female (finding) [facility] National Score (1-10 0), lower number is lower risk 74 [facility] Medical Equipment Procedure Code Equipment [...] daily, # 1 EA, 0 Refill(s), Pharmacy: [address], [place] Start: 05-10-2019 See Instructions , testing once daily, # 1 EA, 0 Refill(s), Pharmacy: [address], [place] Start: 05-10-2019 See Instructions , testing once daily, # 1 EA, 0 Refill(s), Pharmacy: [address], [place] Start: 05-10-2019 See Instructions , testing once daily, # 1 EA, 0 Refill(s), Pharmacy: [address], [place] Start: 05-10-2019 See Instructions , testing once daily, # 1 EA, 0 Refill(s), Pharmacy: [address], [place] Start: 05-10-2019 See Instructions , testing once daily, # 1 EA, 0 Refill(s), Pharmacy: [address], [place] Start: 05-10-2019 See Instructions , testing once daily, # 1 EA, 0 Refill(s), Pharmacy: [address], [place] Start: 05-10-2019 See Instructions , testing once daily, # 1 EA, 0 Refill(s), Pharmacy: [address], [place] Start: 05-10-2019 See Instructions , testing once daily, # 1 EA, 0 Refill(s), Pharmacy: [address], [place] Start: 05-10-2019 See Instructions , testing once daily, # 1 EA, 0 Refill(s), Pharmacy: [address], [place] Start: 05-10-2019 See Instructions , testing once daily, # 1 EA, 0 Refill(s), Pharmacy: [address], [place] Start: 05-10-2019 See Instructions , testing once daily, # 1 EA, 0 Refill(s), Pharmacy: [address], [place] Start: 05-10-2019 See Instructions , testing once daily, # 1 EA, 0 Refill(s), Pharmacy: [address], [place] Start: 05-10-2019 See Instructions , testing once daily, # 1 EA, 0 Refill(s), Pharmacy: [address], [place] Start: 05-10-2019 See Instructions , testing once daily, # 1 EA, 0 Refill(s), Pharmacy: [address], [place] Start: 05-10-2019 See Instructions , testing once daily, # 1 EA, 0 Refill(s), Pharmacy: [address], [place] Start: 05-10-2019 See Instructions , testing once daily, # 1 EA, 0 Refill(s), Pharmacy: [address], [place] Start: 05-10-2019 See Instructions , testing once daily, # 1 EA, 0 Refill(s), Pharmacy: [address], [place] Start: 05-10-2019 See Instructions , testing once daily, # 1 EA, 0 Refill(s), Pharmacy: [address], [place] Start: 05-10-2019 See Instructions , testing once daily, # 1 EA, 0 Refill(s), Pharmacy: [address], [place] Start: 05-10-2019 See Instructions , testing once daily, # 1 EA, 0 Refill(s), Pharmacy: [address], [place] Start: 05-10-2019 See Instructions , testing once daily, # 1 EA, 0 Refill(s), Pharmacy: [address], [place] Start: 05-10-2019 See Instructions , testing once daily, # 1 EA, 0 Refill(s), Pharmacy: [address], [place] Start: 05-10-2019 See Instructions , testing once daily, # 1 EA, 0 Refill(s), Pharmacy: [address], [place] Start: 05-10-2019 See Instructions , testing once daily, # 1 EA, 0 Refill(s), Pharmacy: [address], [place] Start: 05-10-2019 See Instructions , testing once daily, # 1 EA, 0 Refill(s), Pharmacy: [address], [place] Start: 05-10-2019 See Instructions , testing once daily, # 1 EA, 0 Refill(s), Pharmacy: [address], [place] Start: 05-10-2019 See Instructions , testing once daily, # 1 EA, 0 Refill(s), Pharmacy: [address], [place] Start: 05-10-2019 See Instructions , testing once daily, # 1 EA, 0 Refill(s), Pharmacy: [address], [place] Start: 05-10-2019 See Instructions , testing once daily, # 1 EA, 0 Refill(s), Pharmacy: [address], [place] Start: 05-10-2019 See Instructions , testing once daily, # 1 EA, 0 Refill(s), Pharmacy: [address], [place] Start: 05-10-2019 See Instructions , testing once daily, # 1 EA, 0 Refill(s), Pharmacy: [address], [place] Start: 05-10-2019 See Instructions , testing once daily, # 1 EA, 0 Refill(s), Pharmacy: [address], [place] Start: 05-10-2019 See Instructions , testing once daily, # 1 EA, 0 Refill(s), Pharmacy: [address], [place] Start: 05-10-2019 See Instructions , testing once daily, # 1 EA, 0 Refill(s), Pharmacy: [address], [place] Start: 05-10-2019 See Instructions , testing once daily, # 1 EA, 0 Refill(s), Pharmacy: [address], [place] Start: 05-10-2019 See Instructions , testing once daily, # 1 EA, 0 Refill(s), Pharmacy: [address], [place] Start: 05-10-2019 See Instructions , testing once daily, # 1 EA, 0 Refill(s), Pharmacy: [address], [place] Start: 05-10-2019 See Instructions , testing once daily, # 1 EA, 0 Refill(s), Pharmacy: [address], [place] Start: 05-10-2019 See Instructions , testing once daily, # 1 EA, 0 Refill(s), Pharmacy: [address], [place] Start: 05-10-2019 See Instructions , testing once daily, # 1 EA, 0 Refill(s), Pharmacy: [address], [place] Start: 05-10-2019 See Instructions , testing once daily, # 1 EA, 0 Refill(s), Pharmacy: [address], [place] Start: 05-10-2019 See Instructions , testing once daily, # 1 EA, 0 Refill(s), Pharmacy: [address], [place] Start: 05-10-2019 See Instructions , testing once daily, # 1 EA, 0 Refill(s), Pharmacy: [address], [place] Start: 05-10-2019 See Instructions , testing once daily, # 1 EA, 0 Refill(s), Pharmacy: [address], [place] Start: 05-10-2019 See Instructions , testing once daily, # 1 EA, 0 Refill(s), Pharmacy: [address], [place] Start: 05-10-2019 See Instructions , testing once daily, # 1 EA, 0 Refill(s), Pharmacy: [address], [place] Start: 05-10-2019 See Instructions , testing once daily, # 1 EA, 0 Refill(s), Pharmacy: [address], [place] Start: 05-10-2019 See Instructions , testing once daily, # 1 EA, 0 Refill(s), Pharmacy: [address], [place] Start: 05-10-2019 See Instructions , testing once daily, # 1 EA, 0 Refill(s), Pharmacy: [address], [place] Start: 05-10-2019 See Instructions , testing once daily, # 1 EA, 0 Refill(s), Pharmacy: [address], [place] Start: 05-10-2019 See Instructions , testing once daily, # 1 EA, 0 Refill(s), Pharmacy: [address], [place] Start: 05-10-2019 See Instructions , testing once daily, # 1 EA, 0 Refill(s), Pharmacy: [facility] [place] [address], Diabetes Start: 05-10-2019 See Instructions , testing once daily, # 1 EA, 0 Refill(s), [facility] [place] [address], Diabetes Start: 05-10-2019 See Instructions , testing once daily, # 1 EA, 0 Refill(s), [facility] [place] [address], Diabetes Start: 05-10-2019 See Instructions , testing once daily, # 1 EA, 0 Refill(s), [facility] [place] [address], Diabetes Start: 05-10-2019 See Instructions , testing once daily, # 1 EA, 0 Refill(s), [facility] [place] [address], Diabetes Start: 05-10-2019 See Instructions , testing once daily, # 1 EA, 0 Refill(s), [facility] [place] [address], Diabetes Start: 05-10-2019 See Instructions , testing once daily, # 1 EA, 0 Refill(s), Pharmacy: [facility], [place] Start: 05-10-2019 Functional Status Date Assessment Result Facility 03-31-2024 Functional Status ID band on, Allergy Band on, Call device within reach, Bed in low position, Wheels locked, Upper/Half-Length side-rails up, Safety level maintained [facility] 12-26-2022 Functional Status Independent [facility] 06-12-2021 Functional Status [facility] Mental Status Date Assessment Result Facility 03-31-2024 Mental Status Orientation Oriented x [facility] 12-26-2022 Mental Status Orientation Oriented x 4 [facility] Clinical Notes 09-27-2015 to 05-04-2025 Note [...] Locations *1: This test was performed at: [address], [address]- , [facility] 04-28-2025 Note . MICRO - Microbiology [...] Locations *1: This test was performed at: [address], [address]- , [facility] 01-29-2025 Hospital Discharge instructions Patient Education [...] or as directed by your healthcare provider [phone] [employer]. [address] [place] [address]. All rights reserved. This information is not intended as a substitute for professional medical care. Always follow your healthcare professional's instructions. Follow Up Care 01/29/2025 18:10:12 With:ROSARIO WALTERS APRN-MD ALLERGY IMMUNOLOGY Address: [address] [facility] [place], [place] [phone]- [phone] When:2-4 days [facility] 01-29-2025 Note Discharge Instructions Thank you for allowing [facility] to assist you with your healthcare needs. The following is important discharge information regarding your hospital visit. What to Do Next Instructions from Your Care Team No qualifying data available. Post Acute Orders No qualifying data available. You Need to Schedule the Following Appointments Follow Up with SELENA, ORSARIO S PENOLOGY TEACHER-MD ALLERGY IMMUNOLOGY When:Within 2-4 days Where:[address] [facility] [place] [phone] Allergies Statins (Moderate) Painful joint penicillin Hives [...] or as directed by your healthcare provider [phone] [employer]. [address] [place] [address]. All rights reserved. This information is not intended as a substitute for professional medical care. Always follow your healthcare professional's instructions. Additional Information VACCINATE! IT SAVES LIVES! Members of the community who have not yet received the COVID-19 vaccine and would like to receive it can visit one of [facility] vaccine clinics. There are many vaccine clinic locations within the [facility]. For locations and available times, please visit www.gettheshot.coronavirus.[place].gov/. It is important to note that some COVID mobile vaccine clinics are held outdoors and may be canceled in rainy or stormy conditions. To learn more about pediatric vaccinations (ages 5-11), we invite you to visit the [facility] webpage. [email or web address]/[email or web address]-Luiuj-Fbrrnugshue-Frequently-Asked -Questions.html To learn more about the COVID-19 vaccine, we invite you to visit the CDC website for a list of frequently asked questions. https://www.cdc.gov/coronavirus/2019-n cov/vaccines/faq.html [facility] Access Instructions: Stay connected with your healthcare team and access your personal medical information anytime with the [facility] Patient Portal. If you would like a full copy of your medical records please contact the [facility] Medical Records Department Wednesday through Wednesday between 8a.m. and 4:30p.m. Please follow the directions below to access the portal: 1.Access the email account you provided upon registration to the [facility].2.Look for an invitation email from [facility].3.Open the email and access the invitation link: [facility] to [facility].Fill in the required morgan to create your account. Sign into [email or web address] with your username and password that you [...] you will allow to register on the [facility] Patient Portal for access to your information. You can also access the [facility] Patient Portal on the [employer]. Simply click on Health Records under Health Data and then click on the [employer] logo. HOW TO SAFELY DISPOSE OF PRESCRIPTION [...] Call your local pharmacy or go to http://bit.ly/4P1Fs1a to find one close to you.3.Make use of household items: Use cat litter or old coffee grounds to dispose medications if other options are not available. Mix your drugs with these household products, seal them in an airtight container and throw it into the garbage. Call [facility]: [phone] to be sure your drugs can be [...] aware that I should contact my doctor. Patient/Janitor Supervisor Signature: _ Date/Time: Relationship to Patient: Witness Name/Signature: Date/Time: [facility] 01-28-2025 Hospital Discharge instructions Patient Education [...] placed at your back, or any other cxfk-ij-uvjub area, ask another person to assist you [...] and water are not available, use hand dormitory supervisor. 3.Remove the old dressing. Avoid using scissors [...] and water are not available, use hand dormitory supervisor. 3.Loosen any pins or clips that hold [...] placed at your back, or any other cyns-uz-smrbe area, ask another person to assist you. Contact your health care provider if you have redness, swelling, or pain around your drain area. This information is not intended to replace advice given to you by your health care provider. Make sure you discuss any questions you have with your health care provider. Document Released: 06/11/2001 Document Revised: 07/19/2019 Document Reviewed: 07/19/2019 [employer] Patient Education 2020 [employer]. 01/28/2025 12:55:07 8- Alexandr Jackson Drain (03/2018)(CUSTOM) [...] Document Reviewed: 06/15/2014 ExitCare Patient Information 2015 EZ-Apps [facility]. This information is not intended to replace advice given to you by your health care provider. Make sure you discuss any questions you have with your health care provider. Follow Up Care 01/18/2025 16:19:24 With:NEAL SHI Address: [address] [facility] [address] [facility] [place] [address]- [phone] Business (1) When:1-2 days With:ROSARIO WALTERS Address: [address] [facility] [place], [place] [id number]- [phone] Business (1) When:1-2 days [facility] 01-28-2025 Note Discharge Instructions Thank you for allowing [facility] to assist you with your healthcare needs. The following is important discharge information regarding your hospital visit. Your Care Team ROSARIO WALTERS PENOLOGY TEACHER-MD ALLERGY IMMUNOLOGY Your Diagnosis Acute postoperative pain What to [...] 02/08/2025 02:00 PM EDT ILEANA GILBERT MD [facility] Confirmed MEDS - Diabetic Individual Visit 04/18/2025 04:00 PM EDT [facility] Vis[facility] [phone] Confirmed CV OV 12/26/2025 03:30 PM EDT TONA ESCOBAR APRN-MD ALLERGY IMMUNOLOGY [facility] Confirmed Follow Up Appointments Follow Up with NELA SHI When:Within 1-2 days Where:[address] [place] [address]- [phone] Business (1) Follow Up with ROSARIO WALTERS When:Within 1-2 days Where:[address] [place] [address]- [phone] Business (1) The Following Activity and Diet [...] hours as needed for Nausea/Vomiting Pickup at [facility]/pharmacy #[id number] New oxyCODONE (oxyCODONE 5 mg oral tablet ( IMMEDIATE release )) 1 tab(s) by mouth Every 6 hours as needed for for pain Acute postoperative pain Duration: 3 Days Pickup at [facility]/pharmacy #[id number] Unchanged aspirin (aspirin 81 mg [...] Every week rotate injection sites Pharmacy Information [facility]/pharmacy #[id number]: [address] [place], [place] [phone] Please take this list to your next [...] placed at your back, or any other acmf-ae-munfq area, ask another person to assist you [...] and water are not available, use hand dormitory supervisor. 3. Remove the old dressing. Avoid using [...] and water are not available, use hand dormitory supervisor. 3. Loosen any pins or clips that [...] placed at your back, or any other vneq-qo-qwvsp area, ask another person to assist you. [...] Document Reviewed: 07/19/2019 Elsevier Patient Education 2019 [employer]. Alexandr Jackson [facility] Patient Education After surgery, [...] Document Reviewed: 06/15/2014 ExitCare Patient Information 2015 [employer] [facility]. This information is not intended to replace advice given to you by your health care provider. Make sure you discuss any questions you have with your health care provider. Additional Information VACCINATE! IT SAVES LIVES! Members of the community who have not yet received the COVID-19 vaccine and would like to receive it can visit one of [facility] vaccine clinics. There are many vaccine clinic locations within the [facility]. For locations and available times, please visit [email or web address] It is important to note that some COVID mobile vaccine clinics are held outdoors and may be canceled in rainy or stormy conditions. To learn more about pediatric vaccinations (ages 5-11), we invite you to visit the [facility] webpage. https://www.[email or web address].org/pages/2 388-Ildlv-Asqhkljcqyy-Frequently-Asked -Questions.html To learn more about the COVID-19 vaccine, we invite you to visit the CDC website for a list of frequently asked questions.https://www.cdc.gov/coronavi robbi/2019-ncov/vaccines/faq.html [facility] Patient Portal Access Instructions: Stay connected with your healthcare team and access your personal medical information anytime with the [facility] Patient Portal. Please follow the directions below to create your [facility] account: 1.Access the email account you provided upon registration to the hospital/physician office.2.Look for an invitation email from [facility].3.Open the email and access the invitation link: Accept Invitation to [place] [facility].4.Fill in the required morgan to create your account. To access your account, visit [email or web address]. Click the blue button labeled Access Patient [...] you will allow to register on the [facility] Patient Portal for access to your information. You can also access the [facility] Patient Portal on the [place] [facility]here toy. Simply click on Patient Portal and then log into your account. If you would like to receive a full copy of your medical records, please contact the [facility] Medical Records Department by calling [phone], Wednesday through Wednesday between 8 a.m. and [...] Call your local pharmacy or go to http://bit.ly/0R6Ye1n to find one close to you.3.Make use of household items: Use cat litter or old coffee grounds to dispose medications if other options are not available. Mix your drugs with these household products, seal them in an airtight container and throw it into the garbage. Call [facility]: [phone] to be sure your drugs can be [...] Patient Education Materials [facility] [address] [place] [address] (03/2018)(CUSTOM) Medication Leaflets My discharge plan and instructions have been reviewed and explained to me and I,SONDRA DVUAL understand my current condition and have read and understand these discharge instructions. I have received a written copy of the plan/instructions. If I have questions, I am aware that I should contact my doctor. Patient/Janitor Supervisor Signature: _ Date/Time: Relationship to Patient: Witness Name/Signature: Date/Time: [facility] 01-28-2025 Surgery Hospital Progress note Date of [...] NEAL SHI DO on 01/28/2025 08:03 AM [facility] 01-27-2025 Surgery Hospital Progress note Date of [...] NEAL SHI DO on 01/27/2025 08:38 PM [facility] 01-26-2025 Anesthesiology Consult note Patient: SONDRA DUVAL [...] LUCERO BELCHER MD on 01/26/2025 02:31 PM [facility] 01-26-2025 History and physical note Date of Service 01/26/2025 History and Physical Update I have examined the patient; reviewed the History and Physical and there are no changes to the History and Physical unless noted below. Digitally Signed by ILEANA GILBERT MD on 01/26/2025 09:51 AM [facility] 01-26-2025 Anesthesiology Consult note Patient: SONDRA DUVAL [...] Problem list: Medical Anemia / SNOMED CT 932465715 / Confirmed Aortic stenosis / SNOMED CT 489449589 / Confirmed Back pain / SNOMED CT 094998855 / Confirmed Cholelithiasis / SNOMED CT 943682905 / Confirmed Hematuria / SNOMED CT 979829555 / Confirmed CAD - Coronary artery disease / SNOMED CT 1227499692 / Confirmed Cirrhosis of liver / SNOMED CT 64363159 / Confirmed Hidradenitis suppurativa / SNOMED CT 81897979 / Confirmed S/P CABG (coronary artery bypass graft) / SNOMED CT 3099352492 / Confirmed Hypertension / SNOMED CT 5158305045 / Confirmed Hypokalemia / SNOMED CT 20630797 / Confirmed Intertrigo / SNOMED CT 80004034 / Confirmed Elevated liver enzymes / SNOMED CT 9582077990 / Confirmed Major depression / SNOMED CT 8575507435 / Confirmed Hyperlipemia, mixed / SNOMED CT 874014902 / Confirmed Nodular hyperplasia of liver / SNOMED CT 753276009 / Confirmed Pancytopenia / SNOMED CT 050187 / Confirmed Paresthesia of left arm / SNOMED CT 9303587552 / Confirmed Preop cardiovascular exam / SNOMED CT 721702185 / Confirmed Screening for breast cancer / SNOMED CT 606985491 / Confirmed Portal hypertension / SNOMED CT 72932254 / Confirmed Type 2 diabetes mellitus / SNOMED CT 681391720 / Confirmed Vitamin D deficiency / SNOMED CT 65558780 / Confirmed Canceled: Acute maxillary sinusitis / SNOMED CT 071049997 Canceled: Acute maxillary sinusitis / SNOMED CT 249632077 Canceled: Right ankle pain / SNOMED CT 344166665 Canceled: Anxiety due to invasive procedure / SNOMED CT 07217989 Canceled: Carpal tunnel / SNOMED CT 338712161 Canceled: Chest pain in adult / SNOMED CT 47831869 Canceled: Chest pain / SNOMED CT 12052027 Canceled: COPD - Chronic obstructive pulmonary disease / SNOMED CT 054659318 Canceled: SOB (shortness of breath) / SNOMED CT 717167466 Canceled: Lower extremity edema / SNOMED CT 229902287 Canceled: Fall / ICD-9-CM E888.9 Canceled: Fatigue / SNOMED CT 627618949 Canceled: Hidradenitis suppurativa / SNOMED CT 67487317 Canceled: Hyperlipidemia / SNOMED CT 57483315 Canceled: Abnormal chest x-ray / SNOMED CT 2408133301 Canceled: Kidney stones / SNOMED CT 088704031 Canceled: Right knee pain / SNOMED CT 59841286 Canceled: Skin lesion of foot / SNOMED CT 0167571431 Canceled: Leukopenia / SNOMED CT 506254251 Canceled: Skin lesion of right leg / SNOMED CT 1851537370 Canceled: Memory problem / SNOMED CT 1200787910 Canceled: Preoperative clearance / SNOMED CT 358809529 Canceled: RUQ pain / SNOMED CT 824853105 Canceled: Postprandial abdominal pain in right upper quadrant / SNOMED CT 314816813 Canceled: Left shoulder pain / SNOMED CT 15624674 Canceled: Swallowing problem / SNOMED CT 7029073257 Canceled: Diabetes mellitus type 2, uncontrolled / SNOMED CT 6711061131 Canceled: Vitamin D deficiency / SNOMED CT 88525860, Active Problems (32) Acid reflux Anemia Anxiety [...] disease Mother Procedure history: Carpal tunnel release (908582395) in the month of 10/2024 at 59 Years. EGD - esophagogastroduodenoscopy (7286536135) in 2024 at 59 Years. Knee arthroplasty (418851776) on 06/10/2021 at 55 Years. Comments: 06/10/2021 12:13 KYLE Culver right Cardiac catheterization ([id number]) on 12/28/2017 at 52 Years. Comments: 11/03/2023 9:32 Caryn Mcfadden CMA, Clinical Lead [facility]: 2 vessel [place] artery CAD.80% mid-LCX stenosis. 50% proximal OM1 stenosis. 90% proximal followed by 99% distal RCA. Patent ARMSTRONG to mid LAD. Patent SVG to OM! & OM2. Patent SVG to posterior descending & posterolateral branches. Nomral LV end diastolic pressure 17 mmHg. Exploration ([id number]) in 2016 at 50 Years. Comments: 01/23/2025 11:59 Barbara Tompkins RN sternal wound Coronary artery bypass grafts x 5 ([id number]) in the month of 07/2015 at 49 Years. Comments: 11/03/2023 10:45 Caryn Mcfadden CMA, Clinical Lead [facility]- X's 5 Hysterectomy ([id number]). Oophorectomy (644014292). Comments: 04/25/2019 15:44 Bianca Sorto LPN bilateral delivery (6146755290). Comments: 04/25/2019 15:45 Bianca Sorto LPN twice Operation ([id number]). Comments: 01/23/2025 11:53 Barbara Tompkins RN L4-L5 cleaned out Arthroscopy of knee ([id number]). Comments: 01/23/2025 11:58 Barbara Tompkins RN x [...] Financial concerns: Yes Domestic Concerns Denies Primary Project Superintendent: self Lives In 1st floor bathroom, 1st [...] Documentation reviewed: Current records. Assessment and Plan [place] [employer] Anesthesiologists (ASA) physical status classification: [...] EDIS PINEDA DO on 01/26/2025 08:07 AM [facility] 01-17-2025 Note Vitals: -Weight: 211.6 lbs History [...] by Adry PrietoD on 01/18/2025 08:59 AM [facility] 12-28-2024 Note Exam Date Time Procedure Performing Provider Status 12/28/24 8:04 AM US Abdomen Complete LIZ NAVARRO MD; Auth (Verified) [id number] ORIGINAL EXAMINATION: COMPLETE ABDOMINAL ULTRASOUND 12/28/2024 8:11 [...] 12/28/2024 9:13:25 AM Ordering Provider: ILEANA GILBERT [facility]03-20-2025 Note Vitals: - BP: 137/52mmHg - [...] other options or get a referral to [facility] for her HS. Will increase [...] by Jaya Corey on 09/14/2024 03:57 PM [facility]03-19-2025 Note Vitals: - BP: 137/52mmHg - [...] other options or get a referral to [facility] for her HS. Will increase [...] by Jaya Corey on 09/14/2024 03:57 PM [facility]02-28-2025 Note* Exam Date Time Procedure Performing Provider Status 08/25/24 7:15 AM US Abdomen Limited DANIEL JO DO; Auth (Verified) [id number] ORIGINAL EXAMINATION: RIGHT UPPER QUADRANT ULTRASOUND 08/25/2024 [...] 08/25/2024 8:45:01 AM Ordering Provider: SOY CRUMP [facility]12-19-2024 Note Vitals: -Weight: 210.4 lbs History [...] Adry Prieto PharmD on 06/15/2024 04:36 PM [facility]10-04-2024 Hospital Discharge instructions Patient Education 03/31/2024 [...] kidneys Sickle cell anemia Vigorous exercise Endometriosis 0731-6180 [employer]. [address] [place] [address]. All rights reserved. This information is not [...] Numbness or weakness in a leg [employer]. [address] [place] [address]. All rights reserved. This information is not intended as a substitute for professional medical care. Always follow yourhealthcare professional's instructions. Follow Up Care 03/31/2024 13:32:19 With:AIDAN NASH MD, [employer] Address: [address] [place] [phone] When:2-4 days With:ROSARIO WALTERS PENOLOGY TEACHER-MD ALLERGY IMMUNOLOGY Address: [address] [place] [phone] When:2-4 days [facility] 10-04-2024 Note Discharge Instructions Thank you for allowing [facility] to assist you with your healthcare needs. [...] Appointments Follow Up with AIDAN NASH MD, [employer] When:Within 2-4 days Where:[address] [place] [phone] Follow Up with ROSARIO WALTERS PENOLOGY TEACHER-MD ALLERGY IMMUNOLOGY When:Within 2-4 days Where:[address] [place] [phone] Allergies Statins (Moderate) penicillin Medications Please ask your primary doctor or pharmacist before taking any other medication not listed, including over the counter drugs, herbal medications, vitamins and or supplements as they may interact withyour home medications. What How Much When Why Instructions Last Dose New acetaminophen-hydrocodone ([place] 325- 5 mg oral tablet) 1 tab(s) [...] may report side effects to FDA at 8-734-NCO-6337. What other drugs will affect ondansetron? Ondansetron can cause a serious heart problem. Your risk may be higher if you also use certain other medicines for infections, asthma, heart problems, high blood pressure, depression, mental illness,cancer, malaria, or HIV. Many drugs can affect ondansetron. This includes prescription and pdys-yzi-zlemtey medicines, vitamins, and herbal products. Not all [...] to ensure that the information provided by [employer]. ('Multum') is accurate, up-to-date, and complete, but no guarantee is made to that effect. Drug information contained herein may be time sensitive. [employer] information has been compiled for use by healthcare practitioners and consumers in the [place] and therefore [employer] does not warrant that uses outside of the [place] are appropriate, unless specifically indicated otherwise. [employer] drug information does not endorse drugs, diagnose patients or recommend therapy. [employer] drug information isan informational resource designed to [...] effective or appropriate for any given patient. [employer] does not assume any responsibility for any aspect of healthcare administered with the aid of information [employer] provides. The information contained herein is not intended to cover all possible uses, directions, precautions, warnings, drug interactions, allergic reactions, or adverse effects. If you have questions about the drugs you are taking, check with your doctor, nurse or pharmacist. Copyright 4822-1959 [employer]. Version: 17.01. Revision Date: 03/21/2024. acetaminophen and [...] may report side effects to FDA at 4-073-BFK-4455. What other drugs will affect acetaminophen and [...] affect acetaminophen and hydrocodone, including prescription and ekmf-onr-wvyxkdd medicines, vitamins, and herbal products. Not all [...] to ensure that the information provided by [employer]. ('[employer]') is accurate, up-to-date, and complete, but no guarantee is made to that effect. Drug information contained herein may be time sensitive. [employer] information has been compiled for use by healthcare practitioners and consumers in the [place] and therefore [employer] does not warrant that uses outside of the [place] are appropriate, unless specifically indicated otherwise. [employer] drug information does not endorse drugs, diagnose patients or recommend therapy. [employer] drug information isan informational resource designed to [...] effective or appropriate for any given patient. [facility] does not assume any responsibility for any aspect of healthcare administered with the aid of information [employer] provides. The information contained herein is not intended to cover all possible uses, directions, precautions, warnings, drug interactions, allergic reactions, or adverse effects. If you have questions about the drugs you are taking, check with your doctor, nurse or pharmacist. Copyright 8778-8946 [employer]. Version: 19.. Revision Date: 10/05/2023. Education Materials [...] kidneys Sickle cell anemia Vigorous exercise Endometriosis 4120-4872 [employer]. [address] [place] [address]. All rights reserved. This information is not [...] worse Numbness or weakness in a leg 9931-5833 [employer]. [address] [place] [address], [place] [address]. All rights reserved. This information is not intended as a substitute for professional medical care. Always follow yourhealthcare professional's instructions. Additional Information VACCINATE! IT SAVES LIVES! Members of the community who have not yet received the COVID-19 vaccine and would like to receive it can visit one of [facility] vaccine clinics. There are many vaccine clinic locations within the [facility]. For locations and available times, please visit www.[email or web address]/. It is important to note that some COVID mobile vaccine clinics are held outdoors and may be canceled in rainy or stormy conditions. To learn more about pediatric vaccinations (ages 5-11), we invite you to visit the [facility] webpage. https://www.[facility].org/pages/3732-Aejta-Cvostgdapmd-Vqdtmbpvxz-Qdlcq-Dif stions.htmlTo learn more about the COVID-19 vaccine, we invite you to visit the CDC website for a list of frequently asked questions. https://www.cdc.gov/coronavirus/2019-ncov/vaccines/faq.html [place] [facility] Patient Portal Access Instructions: Stay connected with your healthcare team and access your personal medical information anytime with the [facility] Patient Portal. If you would like a full copy of your medical records please contact the [facility] Medical Records Department Wednesday through Wednesday between 8a.m. and 4:30p.m. Please follow the directions below to access the portal: 1.Access the email account you provided upon registration to the hospital.2.Look for an invitation email from [facility].3.Open the email and access the invitation link: Accept Invitation to [facility]4.Fill in the required morgan to create your account. Sign into [email or web address] with your username and password that you [...] you will allow to register on the [facility] Patient Portal for access to your information. You can also access the [facility] Patient Portal on the [employer]. Simply click on Health Records under [employer] and then click on the Talkpush logo. HOW TO SAFELY DISPOSE OF PRESCRIPTION [...] Call your local pharmacy or go to http://[employer]/2V3Gt9l to find one close to you.3.Make use of household items: Use cat litter or old coffee grounds to dispose medications if other options arenot available. Mix your drugs with these household products, seal them in an airtight container andthrow it into the garbage. Call [facility]: [phone] to be sure your drugs can be [...] aware that I should contact my doctor. Patient/Janitor Supervisor Signature: Date/Time: Relationship to Patient: Witness Name/Signature: Date/Time: [facility]10-04-2024 Note ORIGINAL EXAMINATION: CT OF THE [...] Sign Date: 03/31/2024 3:07:41 PM Ordering Provider: [facility]09-11-2024 History of Present illness Narrative* Teresa [...] PATIENT PRESENTS WITH AN IMPLANTABLE OR ATTACHED CAMPAIGN DEVELOPER: No RADIOLOGY DEPARTMENT: MR; Exam(s) Completed: Body: Liver (routine) PERIPHERAL IV DATA: Not applicable SIGNED BY: RT Karmen(R) March 08, 2024 8:53 AM [facility] NoteHNO ID: [id number] Author: TERESA RANDALL RT(R) Service: ? Author [...] PATIENT PRESENTS WITH AN IMPLANTABLE OR ATTACHED CAMPAIGN DEVELOPER: No RADIOLOGY DEPARTMENT: MR; Exam(s) Completed: Body: Liver (routine) PERIPHERAL IV DATA: Not applicable SIGNED BY: RT Karmen(R) March 08, 2024 8:53 [facility]05-14-2024 Note* Exam Date Time Procedure Performing Provider Status 11/09/23 8:15 AM Echocardiogram, Adult - CV Auth (Verified) [facility] 05-14-2024 Note ORIGINAL FROM: [address] [address] PROCEDURE FOR: SONDRA DUVAL [address] [place] [address] Home: PID#: [id number] Exam#: [id number] : 1965 Age: 58 TO: ROSARIO WALTERS APRN [address] [address] Fax: NO FAX EXAMINATION: SCREENING DIGITAL BILATERAL [...] addition to annual mammographic screening per the [employer] [employer]. I have personally reviewed the [...] 11/09/2023 11:42:22 AM Ordering Provider: ROSARIO WALTERS Model Photographers': EZEKIEL KARIMI RT(R)(M)(CT) HARP ACTION ASSEMBLER letter sent: Normal BI-RADS 1 and 2 Mammogram BI-RADS: 1 [facility]07-01-2023 Hospital Discharge instructions Patient Education 12/26/2022 18:19:04 [...] fingers becomes cold, blue, numb or tingly 4110-7213 [employer]. [address] [place] [address]. All rights reserved. This information is not intended as a substitute for professional medical care. Always follow yourhealthcare professional's instructions. Follow Up Care 12/26/2022 16:09:07 With:ROSARIO WALTERS APRN-MD ALLERGY IMMUNOLOGY Address: [address] [facility] [place] [phone] When:2-4 days With:Go to emergency room if symptoms worsen Address:Unknown When:2-4 days [facility] 07-01-2023 Emergency department Discharge summary Discharge Instructions Thank you for allowing [place] to assist you with your healthcare needs. [...] When Within 2-4 days Where: [address] [facility] [place] [address] [phone] Follow Up with Go to emergency room if symptoms worsen When Within 2-4 days Allergies Statins penicillin Medications Please ask your primary doctor or pharmacist before taking any other medication not listed, including over the counter drugs, herbal medications, vitamins and or supplements as they may interact withyour home medications. What How Much When Why Instructions Last Dose New acetaminophen-hydrocodone ([place] 325- 5 mg oral tablet) 1 tab(s) [...] fingers becomes cold, blue, numb or tingly 6512-2251 [employer]. [address] [place] [address], [place] [address]. All rights reserved. This information is not intended as a substitute for professional medical care. Always follow yourhealthcare professional's instructions. Additional Information VACCINATE! IT SAVES LIVES! Members of the community who have not yet received the COVID-19 vaccine and would like to receive it can visit one of [facility] vaccine clinics. There are many vaccine clinic locations within the [facility]. For locations and available times, please visit [email or web address]/. It is important to note that some COVID mobile vaccine clinics are held outdoors and may be canceled in rainy or stormy conditions. To learn more about pediatric vaccinations (ages 5-11), we invite you to visit the [facility] webpage. https://www.[facility].org/pages/3363-Vsvve-Vdlptfqscgu-Ontbfoosrw-Vojcr-Cqs stions.htmlTo learn more about the COVID-19 vaccine, we invite you to visit the CDC website for a list of frequently asked questions. https://www.cdc.gov/coronavirus/2019-ncov/vaccines/faq.html [facility] Patient Portal Access Instructions: Stay connected with your healthcare team and access your personal medical information anytime with the [facility] Patient Portal. If you would like a full copy of your medical records please contact the [facility] Medical Records Department Wednesday through Wednesday between 8a.m. and 4:30p.m. Please follow the directions below to access the portal: 1.Access the email account you provided upon registration to the [facility].2.Look for an invitation email from [facility].3.Open the email and access the invitation link: Accept Invitation to [facility].Fill in the required morgan to create your account. Sign into [email or web address] with your username and password that you [...] you will allow to register on the [facility] Patient Portal for access to your information. You can also access the [facility] Patient Portal on the [employer] toy. Simply click on Health Records under [employer] and then click on the Kendal logo. [...] Call your local pharmacy or go to http://bit.[employer]/6G1Tw4k to find one close to you.3.Make use of household items: Use cat litter or old coffee grounds to dispose medications if other options arenot available. Mix your drugs with these household products, seal them in an airtight container andthrow it into the garbage. Call [facility]: [phone] to be sure your drugs can be [...] aware that I should contact my doctor. Patient/Janitor Supervisor Signature: Date/Time: Relationship to Patient: Witness Name/Signature: Date/Time[facility] Emergency department Discharge summary Discharge Instructions [...] When Within 2-4 days Where: [address] [facility] [place] [address]- [phone] Follow Up with Go to emergency room if symptoms worsen When Within 2-4 days Allergies Statins penicillin Medications Please ask your primary doctor or pharmacist before taking any other medication not listed, including over the counter drugs, herbal medications, vitamins and or supplements as they may interact withyour home medications. What How Much When Why Instructions Last Dose New acetaminophen-hydrocodone ([place] 325- 5 mg oral tablet) 1 tab(s) [...] fingers becomes cold, blue, numb or tingly [phone] [employer]. [address] [place] [address], [place] [address]. All rights reserved. This information is not intended as a substitute for professional medical care. Always follow yourhealthcare professional's instructions. Additional Information VACCINATE! IT SAVES LIVES! Members of the community who have not yet received the COVID-19 vaccine and would like to receive it can visit one of [facility] vaccine clinics. There are many vaccine clinic locations within the [facility]. For locations and available times, please visit www.gettheshot.coronavirus.[place].gov/. It is important to note that some COVID mobile vaccine clinics are held outdoors and may be canceled in rainy or stormy conditions. To learn more about pediatric vaccinations (ages 5-11), we invite you to visit the [facility] webpage. https://www.[facility].org/pages/7712-Fhufl-Yfpkwxnbdog-Cbfbbzryhn-Ssbhd-Wwi stions.htmlTo learn more about the COVID-19 vaccine, we invite you to visit the CDC website for a list of frequently asked questions. https://www.cdc.gov/coronavirus/2019-ncov/vaccines/faq.html [facility] Patient Portal Access Instructions: Stay connected with your healthcare team and access your personal medical information anytime with the [facility] Patient Portal. If you would like a full copy of your medical records please contact the [facility] Medical Records Department Wednesday through Wednesday between 8a.m. and 4:30p.m. Please follow the directions below to access the portal: 1.Access the email account you provided upon registration to the [facility].2.Look for an invitation email from [facility].3.Open the email and access the invitation link: Accept Invitation to [facility]4.Fill in the required morgan to create your account. Sign into [email or web address] with your username and password that you [...] you will allow to register on the [facility] Patient Portal for access to your information. You can also access the [facility] Patient Portal on the [employer]. Simply click on Health Records under [employer]Data and then click on the Talkpush logo. HOW TO SAFELY DISPOSE OF PRESCRIPTION [...] Call your local pharmacy or go to http://bit.[employer]/7B8Ii8w to find one close to you.3.Make use of household items: Use cat litter or old coffee grounds to dispose medications if other options arenot available. Mix your drugs with these household products, seal them in an airtight container andthrow it into the garbage. Call [facility]: [phone] to be sure your drugs can be [...] aware that I should contact my doctor. Patient/Janitor Supervisor Signature: Date/Time: Relationship to Patient: Witness Name/Signature: Date/Time: [facility]07-01-2023 Note ORIGINAL EXAMINATION: 4 XRAY VIEWS [...] Sign Date: 12/26/2022 6:20:04 PM Ordering Provider: [place] [id number] Note ORIGINAL EXAMINATION: THREE XRAY VIEWS OF [...] Sign Date: 12/26/2022 6:03:15 PM Ordering Provider: [place] [id number] Note ORIGINAL EXAMINATION: 2 XRAY VIEWS OF [...] Sign Date: 12/26/2022 6:02:53 PM Ordering Provider: [address]01-2023 Note ORIGINAL EXAMINATION: THREE XRAY VIEWS [...] Sign Date: 12/26/2022 6:03:15 PM Ordering Provider: [address]01-2023 Note ORIGINAL EXAMINATION: 2 XRAY VIEWS [...] Sign Date: 12/26/2022 6:02:53 PM Ordering Provider: [facility]07-01-2023 Note ORIGINAL EXAMINATION: 4 XRAY VIEWS OF [...] Sign Date: 12/26/2022 6:20:04 PM Ordering Provider: [facility]12-15-2021 Hospital Discharge instructions Patient Education 06/11/2021 07:03:53 5 - [facility] Post-op Instruction 01/2017 ([id number]) [facility] Post-operative Instructions PLEASE FOLLOW [facility] POST-OP INSTRUCTIONS GIVEN WATCH FOR SIGNS OF INFECTION: call the office ([phone]) if experencing any of the following: (Usually [...] on your follow up instructions. Form: 338A ([id number]) R: 11/01 Follow Up Care 05/20/2021 13:51:30 With:[facility] Address: [address] [place] [id number] [phone] When:06/12/2021 16:30:00 Comments:This is your first physical therapy appointment. Follow-up as scheduled. With:RAYNE SCHMID PA-C, Orthopedic Address: [facility] [address] [place] [phone]- When:06/23/2021 15:00:00 Comments:Follow-up as scheduled [facility] 04-01-2016 Evaluation note* Diagnosis Onset Date Resolution Status Aortic valve sclerosis acute Bilateral carotid bruits acu te Mixed hyperlipidemia acute Aortocoronary bypass status September, chronic Atherosclerotic heart diseas e of [place] coronary artery without angina pectoris chronic [facility] Work Phone: Evaluation + Plan note Future Appointments Appointment Date:06/03/2021 10:00:00 AM Scheduled Provider:ROSARIO WALTERS Location:[facility] Appointment Type:PC OV Pre Op Appointment Date:06/12/2021 04:30:00 PM Scheduled Provider: Location:[facility] Appointment Type:PT Outpatient Evaluation Appointment Date:08/11/2021 03:30:00 PM Scheduled Provider:TONA ESCOBAR Location:[facility] Appointment Type:CV OV Future Scheduled Tests Laboratory* Lipid Profile 05/19/21 * Microalbumin Level Urine 05/09/21 [facility] Evaluation + Plan note Future Appointments Appointment Date:06/12/2021 04:30:00 PM Scheduled Provider: Location:[facility] Appointment Type:PT Outpatient Evaluation Appointment Date:08/11/2021 03:30:00 PM Scheduled Provider:TONA ESCOBAR Location:[facility] Appointment Type:CV OV Future Scheduled Tests Laboratory* Lipid Profile 05/19/21 * Microalbumin Level Urine 05/09/21 [facility] Evaluation + Plan note Future Appointments Appointment Date:02/11/2022 03:30:00 PM Scheduled Provider:TONA ESCOBAR Location:[facility] Appointment Type:CV OV Appointment Date:02/27/2022 03:30:00 PM Scheduled Provider: Location:[facility] Appointment Type:DB Diabetic Individual Visit Future Scheduled Tests Laboratory* Complete Blood Count 08/11/21 * Lipid Profile 05/19/21 * Lipid Profile 08/11/21 * Microalbumin Level Urine 05/09/21 [facility] Evaluation + Plan note Future Appointments Appointment Date:02/11/2022 03:30:00 PM Scheduled Provider:TONA ESCOBAR Location:[facility] Appointment Type:CV OV Appointment Date:02/23/2022 03:00:00 PM Scheduled Provider:TONA ESCOBAR Location:[facility] Appointment Type:CV OV Appointment Date:02/27/2022 03:30:00 PM Scheduled Provider: Location:[facility] Appointment Type:DB Diabetic Individual Visit Future Scheduled Tests Laboratory* Complete Blood Count 08/11/21 * Lipid Profile 12/02/21 * Lipid Profile 05/19/21 * Lipid Profile 08/11/21 * Microalbumin Level Urine 05/09/21 [facility] Evaluation + Plan note Future Appointments Appointment Date:02/11/2022 03:30:00 PM Scheduled Provider:TONA ESCOBAR Location:[facility] Appointment Type:CV OV Appointment Date:02/23/2022 03:00:00 PM Scheduled Provider:TONA ESCOBAR Location:[facility] Appointment Type:CV OV Appointment Date:02/27/2022 03:30:00 PM Scheduled Provider: Location:[facility] Appointment Type:DB Diabetic Individual Visit Future Scheduled Tests Laboratory* Lipid Profile 12/02/21 * Lipid Profile 05/19/21 * Microalbumin Level Urine 05/09/21 [facility] Evaluation + Plan note Future Appointments Appointment Date:01/07/2023 02:00:00 PM Scheduled Provider: Location:[facility] Appointment Type:DB Diabetic Individual Visit (AOH) Appointment Date:02/22/2023 02:30:00 PM Scheduled Provider: Location:[facility] Appointment Type:DB Diabetic Individual Visit (AOH) [facility] Evaluation + Plan note Future Appointments Appointment Date:04/22/2023 03:00:00 PM Scheduled Provider: Location:[facility] Appointment Type:[facility]M ONC New Patient Appointment Date:05/25/2023 03:30:00 PM Scheduled Provider: Location:[facility] Appointment Type:DB Diabetic Individual Visit (AO) Future Scheduled Tests Laboratory* Vitamin D Level 06/10/23 [facility] Evaluation + Plan note Future Appointments Appointment Date:05/26/2023 09:30:00 AM Scheduled Provider: Location:[facility] Appointment Type:HEM ONC New Patient Appointment Date:05/28/2023 03:30:00 PM Scheduled Provider: Location:[facility] Appointment Type:DB Diabetic Individual Visit (AO) Future Scheduled Tests Laboratory* Vitamin D Level 06/10/23 [facility] Evaluation + Plan note Future Appointments [...] Level 06/10/23 * Complete Metabolic Panel 08/26/23 [facility] Evaluation + Plan note Future Appointments Appointment [...] MA Mammo Screening Bilateral w/ [place] 06/03/23 [facility] Evaluation + Plan note Future Appointments Appointment [...] MA Mammo Screening Bilateral w/ [place] 06/03/23 [facility] Evaluation + Plan note Future Appointments Appointment Date:12/02/2023 03:30:00 PM Scheduled Provider: Location:[facility] Appointment Type:MEDS - Diabetic Individual Visit Appointment Date:12/07/2023 03:30:00 PM Scheduled Provider: Location:[facility] Appointment Type:HEM ONC OV Follow Up Appointment Date:01/18/2024 03:30:00 PM Scheduled Provider:ROSARIO WALTERS Location:[facility] Appointment Type:PC OV Appointment Date:06/23/2024 [...] MA Mammo Screening Bilateral w/ [place] 06/03/23 [facility] Evaluation + Plan note Future Appointments Appointment Date:12/07/2023 03:30:00 PM Scheduled Provider:SYLVIE FUNES MD Location:[facility] Appointment Type:HEM ONC OV Follow Up Appointment Date:01/18/2024 03:30:00 PM Scheduled Provider:ROSARIO WALTERS Location:[facility] Appointment Type:PC OV Appointment Date:03/09/2024 03:30:00 [...] MA Mammo Screening Bilateral w/ [place] 06/03/23 [facility] Evaluation + Plan note Future Appointments Appointment Date:12/07/2023 03:30:00 PM Scheduled Provider:SYLVIE FUNES MD Location:[facility] Appointment Type:HEM ONC OV Follow Up Appointment Date:01/18/2024 03:30:00 PM Scheduled Provider:ROSARIO WALTERS Location:[facility] Appointment Type:PC OV Appointment Date:03/09/2024 03:30:00 PM Scheduled Provider: Location:[facility] Appointment Type:MEDS - Diabetic Individual Visit Appointment Date:06/23/2024 11:15:00 AM Scheduled Provider: Location:[facility] Appointment Type:CV OV Future Scheduled Tests Laboratory* Complete Blood Count 09/10/23 * Vitamin D Level 06/10/23 * Complete Metabolic Panel 09/10/23 Radiology* MA Mammo Screening Bilateral w/ [place] 06/03/23 [facility] Evaluation + Plan note Future Appointments Appointment Date:06/15/2024 04:00:00 PM Scheduled Provider: Location:[facility] Appointment Type:MEDS - Diabetic Individual Visit Appointment Date:06/23/2024 11:15:00 AM Scheduled Provider: Location:[facility] Appointment Type:CV OV Appointment Date:06/30/2024 11:30:00 AM Scheduled Provider: Location:[facility] Appointment Type:Online OV CVC Appointment Date:07/18/2024 04:00:00 PM Scheduled Provider:ROSARIO WALTERS Location:[facility] Appointment Type:PC OV Future Scheduled Tests Laboratory* Complete Blood Count 09/10/23 * Vitamin D Level 01/18/24 * Vitamin D Level 06/10/23 * Complete Metabolic Panel 09/10/23 Radiology* MA Mammo Screening Bilateral w/ [place] 06/03/23 * MRI Liver 02/09/24 * MRI Liver 02/14/24 [facility] Evaluation + Plan note Future Appointments Appointment Date:05/04/2024 02:30:00 PM Scheduled Provider:ROSARIO WALTERS Location:[facility] Appointment Type:PC OV Appointment Date:06/15/2024 04:00:00 PM Scheduled Provider: Location:[facility] Appointment Type:MEDS - Diabetic Individual Visit Appointment Date:06/23/2024 11:15:00 AM Scheduled Provider: Location:[facility] Appointment Type:CV OV Appointment Date:06/30/2024 11:30:00 AM Scheduled Provider: Location:[facility] Appointment Type:Online OV CVC Appointment Date:07/18/2024 04:00:00 PM Scheduled Provider:ROSARIO WALTERS Location:[facility] Appointment Type:PC OV Future Scheduled Tests Laboratory* Complete Blood Count 09/10/23 * Vitamin D Level 01/18/24 * Vitamin D Level 06/10/23 * Complete Metabolic Panel 09/10/23 Radiology* MA Mammo Screening Bilateral w/ [place] 06/03/23 * MRI Liver 02/09/24 * MRI Liver 02/14/24 [facility] evaluation + Plan note Future Appointments Appointment Date:06/15/2024 04:00:00 PM Scheduled Provider: Location:[facility] Appointment Type:MEDS - Diabetic Individual Visit Appointment Date:06/23/2024 11:15:00 AM Scheduled Provider:PRABHA LORENZO Location:[facility] Appointment Type:CV OV Appointment Date:06/30/2024 11:30:00 AM Scheduled Provider:PRABHA LORENZO Location:[facility] Appointment Type:Online OV CVC Appointment Date:07/18/2024 04:00:00 PM Scheduled Provider:ROSARIO WALTERS Location:[facility] Appointment Type:PC OV Diagnostic Tests Pending * Smooth Muscle Antibody Screen 05/22/24 * Hepatitis A Antibody IgG 05/22/24 * Hep B Core Ab, Tot 05/22/24 * G-5-Sizuuontnyi 05/22/24 Future Scheduled Tests Laboratory* Complete Blood Count 09/10/23 * Vitamin D Level 01/18/24 * Vitamin D Level 06/10/23 * Complete Metabolic Panel 09/10/23 Radiology* MA Mammo Screening Bilateral w/ [place] 06/03/23 * MRI Liver 02/09/24 * MRI Liver 02/14/24 [facility] Evaluation + Plan note Future Appointments Appointment Date:08/25/2024 08:30:00 AM Scheduled Provider:PRABHA LORENZO Location:[facility] Appointment Type:Online OV CVC Appointment Date:09/13/2024 04:00:00 PM Scheduled Provider: Location:[facility] Appointment Type:MEDS - Diabetic Individual Visit Appointment Date:01/16/2025 04:00:00 PM Scheduled Provider:ROSARIO WALTERS Location:[facility] Appointment Type:PC OV Future Scheduled Tests Laboratory* Complete Blood Count 09/10/23 * Albumin/Creatinine Ratio, Random Urine 06/15/24 * Vitamin D Level 01/18/24 * Complete Metabolic Panel 09/10/23 Radiology* MRI Liver 02/09/24 * MRI Liver 02/14/24 [facility] Evaluation + Plan note Future Appointments Appointment Date:09/13/2024 04:00:00 PM Scheduled Provider: Location:[facility] Appointment Type:MEDS - Diabetic Individual Visit Appointment Date:01/16/2025 04:00:00 PM Scheduled Provider:ROSARIO WALTERS APRN-MANUEL Location:[facility] Appointment Type:PC OV Appointment Date:08/24/2025 11:00:00 AM Scheduled Provider:PRABHA LORENZO Location:[facility] Appointment Type:CV OV Future Scheduled Tests Laboratory* Complete Blood Count 09/10/23 * Lipid Profile 08/25/24 * Albumin/Creatinine Ratio, Random Urine 06/15/24 * Vitamin D Level 01/18/24 * Complete Metabolic Panel 09/10/23 Radiology* MRI Liver 02/09/24 * MRI Liver 02/14/24 [facility] Evaluation + Plan note Future Appointments Appointment Date:12/26/2024 01:30:00 PM Scheduled Provider:TONA ESCOBAR Location:[facility] Appointment Type:CV OV Appointment Date:01/16/2025 04:00:00 PM Scheduled Provider:ROSARIO WALTERS Location:[facility] Appointment Type:PC OV Appointment Date:01/17/2025 04:00:00 PM Scheduled Provider: Location:[facility] Appointment Type:MEDS - Diabetic Individual Visit Appointment Date:08/24/2025 11:00:00 AM Scheduled Provider:PRABHA LORENZO Location:[facility] Appointment Type:CV OV Future Scheduled Tests Laboratory* Lipid Profile 08/25/24 * Lipid Profile 03/22/25 * Albumin/Creatinine Ratio, Random Urine 06/15/24 * Prothrombin Time - Panel 12/21/24 * Vitamin D Level 01/18/24 Radiology* US Abdomen Complete 12/21/24 * MRI Liver 02/09/24 * MRI Liver 02/14/24 [facility] Evaluation + Plan note Future Appointments Appointment Date:01/16/2025 04:00:00 PM Scheduled Provider:ROSARIO WALTERS Location:[facility] Appointment Type:PC OV Appointment Date:01/17/2025 04:00:00 PM Scheduled Provider: Location:[facility] Appointment Type:MEDS - Diabetic Individual Visit Appointment Date:12/26/2025 03:30:00 PM Scheduled Provider:TONA ESCOBAR Location:[facility] Appointment Type:CV OV Future Scheduled Tests Laboratory* Lipid Profile 08/25/24 * Lipid Profile 03/22/25 * Albumin/Creatinine Ratio, Random Urine 06/15/24 * Prothrombin Time - Panel 12/21/24 * Vitamin D Level 01/18/24 Radiology* MRI Liver 02/09/24 * MRI Liver 02/14/24 [facility] evaluation + Plan note Future Appointments Appointment Date:02/08/2025 02:00:00 PM Scheduled Provider:ILEANA GILBERT MD Location:[facility] Appointment Type:GS OV Post Op Appointment Date:04/18/2025 04:00:00 PM Scheduled Provider: Location:[facility] Appointment Type:MEDS - Diabetic Individual Visit Appointment Date:12/26/2025 03:30:00 PM Scheduled Provider:TONA ESCOBAR Location:[facility] Appointment Type:CV OV Future Scheduled Tests Laboratory* Lipid Profile 08/25/24 * Lipid Profile 03/22/25 * Albumin/Creatinine Ratio, Random Urine 06/15/24 * Prothrombin Time - Panel 12/21/24 Radiology* MRI Liver 02/09/24 * MRI Liver 02/14/24 [facility] Evaluation + Plan note Future Appointments Appointment Date:02/08/2025 02:00:00 PM Scheduled Provider:ILEANA GILBERT MD Location:[facility] Appointment Type:GS OV Post Op Appointment Date:04/18/2025 04:00:00 PM Scheduled Provider: Location:[facility] Appointment Type:MEDS - Diabetic Individual Visit Appointment Date:12/26/2025 03:30:00 PM Scheduled Provider:TONA ESCOBAR Location:[facility] Appointment Type:CV OV Future Scheduled Tests Laboratory* Complete Blood Count 01/28/25 * Lipid Profile 08/25/24 * Lipid Profile 03/22/25 * Albumin/Creatinine Ratio, Random Urine 06/15/24 * Prothrombin Time - Panel 01/28/25 * Prothrombin Time - Panel 12/21/24 * Complete Metabolic Panel 01/28/25 Radiology* MRI Liver 02/09/24 * MRI Liver 02/14/24 [facility] Evaluation + Plan note Future Appointments Appointment Date:02/01/2025 03:30:00 PM Scheduled Provider:ILEANA GILBERT MD Location:[facility] Appointment Type:GS OV Post Op Appointment Date:04/18/2025 04:00:00 PM Scheduled Provider: Location:[facility] Appointment Type:MEDS - Diabetic Individual Visit Appointment Date:12/26/2025 03:30:00 PM Scheduled Provider:TONA ESCOBAR Location:[facility] Appointment Type:CV OV Future Scheduled Tests Laboratory* Complete Blood Count 01/28/25 * Lipid Profile 08/25/24 * Lipid Profile 03/22/25 * Albumin/Creatinine Ratio, Random Urine 06/15/24 * Prothrombin Time - Panel 01/28/25 * Prothrombin Time - Panel 12/21/24 * Complete Metabolic Panel 01/28/25 Radiology* MRI Liver 02/09/24 * MRI Liver 02/14/24 [facility] Evaluation + Plan note Future Appointments Appointment Date:02/08/2025 03:30:00 PM Scheduled Provider:ILEANA GILBERT MD Location:[facility] Appointment Type:GS OV Post Op Appointment Date:04/18/2025 04:00:00 PM Scheduled Provider: Location:[facility] Appointment Type:MEDS - Diabetic Individual Visit Appointment Date:12/26/2025 03:30:00 PM Scheduled Provider:TONA ESCOBAR Location:[facility] Appointment Type:CV OV Future Scheduled Tests Laboratory* Lipid Profile 08/25/24 * Lipid Profile 03/22/25 * Albumin/Creatinine Ratio, Random Urine 06/15/24 * Prothrombin Time - Panel 12/21/24 Radiology* MRI Liver 02/09/24 * MRI Liver 02/14/24 [facility] Evaluation + Plan note Future Appointments Appointment Date:04/18/2025 04:00:00 PM Scheduled Provider: Location:[facility] Appointment Type:MEDS - Diabetic Individual Visit Appointment Date:12/26/2025 03:30:00 PM Scheduled Provider:TONA ESCOBAR Location:[facility] Appointment Type:CV OV Future Scheduled Tests Laboratory* Lipid Profile 08/25/24 * Albumin/Creatinine Ratio, Random Urine 06/15/24 * Prothrombin Time - Panel 12/21/24 [facility] Evaluation + Plan note Future Appointments Appointment Date:12/26/2025 03:30:00 PM Scheduled Provider:TONA ESCOBAR Location:[facility] Appointment Type:CV OV Future Scheduled Tests Laboratory* Lipid Profile 08/25/24 * Albumin/Creatinine Ratio, Random Urine 06/15/24 * Prothrombin Time - Panel 12/21/24 [facility] Evaluation + Plan note Future Appointments Appointment Date:07/24/2025 03:30:00 PM Scheduled Provider:ROSARIO WALTERS Location:[facility] Appointment Type:PC OV Appointment Date:12/26/2025 03:30:00 PM Scheduled Provider:TONA ESCOBAR Location:[facility] Appointment Type:CV OV Future Scheduled Tests Laboratory* Lipid Profile 08/25/24 * Albumin/Creatinine Ratio, Random Urine 06/15/24 * Prothrombin Time - Panel 12/21/24 [facility] Hospital course Narrative No data available for this section [facility] Hospital Discharge instructions No data available for this section [facility] [facility] Progress note No data available for this section [facility] Summary Purpose Family History Unknown Family Member Name Dates Details Brother 1 Comments:[place] at 51 ye ars of age Status:Active Family Members In General Comments:Heart disease, [address] [place], Emotional prob, HBP, high cholesterol Status:Active Father Comments:[place], CVA, HTN Status:Active Mother Comments:[place] 60's , HTN Status:Active She had abuse [...] Will No June 03 9:23am Power of Commercial Lines Underwriter No June 03, 2020 9:23am Instructions Name Dates Details How to access health [employer] online Indication:Former smoker Start:24-Apr-2019 Instruction Type:Patient [...] Aortocoronary bypass status Atherosclerotic heart disease of [place] coronary artery without angina pectoris Additional Source Comments INFORMATION SOURCE (unrecogn ized section and content) DATE CREATED AUTHOR 12/22/2017 [employer] DATE CREATED AUTHOR AUTHOR'S ORGANIZ ATION 01/11/2018 [facility] DATE CREATED AUTHOR AUTHOR'S ORGANIZ ATION 02/09/2024 [facility] ([place]) DATE CREATED AUTHOR AUTHOR'S ORGANIZ ATION 08/21/2024 [facility] DATE CREATED AUTHOR AUTHOR'S ORGANIZ ATION 02/10/2025 [facility] DATE CREATED AUTHOR AUTHOR'S ORGANIZ ATION 04/22/2025 [facility] DATE CREATED AUTHOR AUTHOR'S ORGANIZ ATION 05/07/2025 [facility] Care Team (unrecognized sect ion and content) Care Team Personnel Name: Nadeen Hager PT Position: P3 Scheduling - Inclusion Special Education Teacher Advanced Member Role: Other Name: ILEANA GILBERT MD Position: P4 Physician - General Surgery Member Role: Surgeon Address: [address] [facility] [address] Telecom: Name: Annie Batista MarkyTracie Position: Quality Review Member Role: Gold Blower Name: ROSARIO WALTERS Position: P4 Advanced Behavioral Health Assistant Member Role: Primary Care Physician Address: [address] [place] [address] Telecom: Care Team Related Persons Name: CELESTE SANCHEZ Maritime Guard Relationship Specialty Start Date End Date Viri Rowland [address] [facility] [address] [place] [address] PCP - General Family Medicine 03/16/17 Victoriano Mackenzie [facility], [address] [facility] [address] [place] [address] Referring Cardiology 03/16/17 Maritime Guard Relationship Specialty Start Date End Date Rosario Walters CNP [address] [place] [address] [phone] PCP - General Family Medicine 08/03/24 Victoriano Mackenzie III, [address] [facility] [address] [place] [address] Referring Cardiology 03/16/17 Care Team (unrecognized sect ion and content) Personnel Name: [facility] Address: Address: [address] [place] [address] Name: Nadeen Hager PT Goals (unrecognized section [...] or prosecute any alcohol or drug abuse patient.[facility] the event this information is protected by the Federal Confidentiality of Alcohol and Drug Abuse Patient Records regulations: The Federal rules restrict any use of the information to criminally investigate or prosecute any alcohol or drug abuse patient.[facility] Center[facility] the event this information is protected by the Federal Confidentiality of Alcohol and Drug Abuse Patient Records regulations: The Federal rules restrict any use of the information to criminally investigate or prosecute any alcohol or drug abuse patient.[facility] FOR RECORDS PERTAINING TO PATIENTS [...] BE BASED ON THE PRIMARY CLINICAL RECORDS. [employer] [facility]. provides no warranty or guarantee of the accuracy or completeness of information in this document.
--- NOTE | 2025-06-06 07:33 | US_ITS ---
PROCEDURE: ABD LIMITED W/ ELASTOGRAPHY REASON FOR EXAM: FATTY LIVER DISEASE COMPARISON: Prior CT scan abdomen and pelvis dated May 16, 2025. TECHNIQUE: Procedure Code: [id number] Modality: US Procedure: ABD LIMITED W/ ELASTOGRAPHY Right upper quadrant abdominal ultrasound. [employer] ElastQ Imaging shear wave elastography for non-invasive assessment of liver tissue stiffness. [employer] EPI[employer] Elite. FINDINGS: LIVER: Size: Unremarkable Length: 16.1 cm Echotexture: Diffusely echogenic suggesting fatty infiltration Contour: Normal Lesions: None identified Elastography: EQI Med: 8.8 kPa EQI Med Robert: 1.68 m/s IQR/Med: 8.8 %* GALLBLADDER: Surgically absent. COMMON BILE DUCT: Normal measuring 4 mm. . PANCREAS: Normal Visualized portions of the right kidney are unremarkable. Small amount of right upper quadrant ascites. US/ABD Limited w/ Elastography IMPRESSION: Moderate hepatic fibrosis. Diffuse fatty infiltration of the liver. Status post cholecystectomy. Trace amount of free fluid in the right upper quadrant. Reference Values: SRU <1.37 m/s (5.7kPa): No to mild fibrosis 1.37 m/s - 2.2 m/s: Moderate to severe fibrosis >2.2 m/s (15kPa): Significant fibrosis / cirrhosis METAVIR Score F2 or higher: 1.34 m/s (5.7kPa) F3 or higher: 1.55 m/s (7.3kPa) F4: 1.80 m/s (10kPa) * If the IQR/Med is >30%, the variance in the measurements is a large and the a ccuracy of the measurement may be in question. Reading Location: [place] [address]
[2025-06-06 07:40] LABS: Hematocrit 37.9 % (37-47); Hemoglobin 13.2 g/dL (12.0-15.0); Immature Granulocytes Count 0.010 X10^3/uL (0.0-0.0); Mean Corp Hgb Conc 34.8 g/dL (32-36); Mean Corpuscular Volume 103.3 fL (81-99); Mean Platelet Vol. 13.5 fl (6.2-12.0); NRBC Flagged by Analyzer 0 % (0-5); POSITIVE COUNT YES; Platelet Count 51 K/mm3 (150-450); RBC Distribution Width CV 14.1 % (11.6-14.6); RBC Distribution Width SD 54.1 fl (35.1-43.9); Red Blood Count 3.67 M/mm3 (4.2-5.4); White Blood Count 3.8 K/mm3 (4.4-11.0)
[2025-06-06 07:44] LABS: Differential Indicated SCAN CRITERIA MET
[2025-06-06 08:50] LABS: Prothrombin Time (Protime)PT. 17.8 SECONDS (11.7-14.9)
[2025-06-06 08:51] LABS: Partial Thromboplast Time 35.1 Seconds (24.1-36.2)
--- NOTE | 2025-06-06 09:00 | CT_ITS ---
PROCEDURE: BIOPSY/INJ OR NEEDLE PLACEMENT 06/06/2025 REASON FOR EXAM: JONES TECHNIQUE: CT-guided liver biopsy. The procedure as well as the benefits and possible complications including infection and bleeding were explained to the patient. Informed consent was obtained. The patient was in the supine position. The overlying skin was prepped and draped in the usual sterile fashion. Conscious sedation was performed. The patient received 2 mg of Versed and 50 mcg of fentanyl intravenously. Conscious sedation was started at 8:56 a.m. and terminated at 9:16 a.m.. The patient was independently monitored by the department nurse. Following local anesthetic application, an 18 gauge core biopsy needle was placed into the left lobe of the liver. 4 core biopsies were obtained. The patient tolerated the procedure well. No immediate complication noted. RADIATION DOSE SUMMARY: CTDlvol: 24.07 mGy DLP: 684.38 mGycm COMPARISON: None FINDINGS: Successful CT-guided biopsy of the left lobe of the liver. CT/Biopsy/Inj or Needle Placement IMPRESSION: Successful CT-guided biopsy of the left lobe of the liver. No immediate compli cation was seen. The patient tolerated the procedure well. Reading Location: [place] [address]
== END | disposition home or self-care (01) ==
PROVIDERS: Radiology Diagnostic Radiology; PCP Nurse Practitioner Primary Care; Referring Provider Internal Medicine Gastroenterology; Visit Provider Internal Medicine Gastroenterology
DX: K75.81 Nonalcoholic steatohepatitis (NASH) (principal)
CPT/HCPCS: 47000; 36415; 76705; 76981; 77012; 85025; 85610; 85730